=== PATIENT | female | born 1965 | race African-American/Black ===

== ENCOUNTER → 2016-07-15 | Outpatient (CLI) | payer MEDICARE, OTHER | LOC: RAD 08:00 | PROVIDERS: ATTEND Internal Medicine Medical Oncology | DX: C50.912 Malignant neoplasm of unspecified site of left female breast (principal) | CPT/HCPCS: 71260; 74177 ==

== ENCOUNTER 2016-08-19 19:06 | Inpatient (IN) | payer MEDICARE, OTHER ==
[2016-08-19] MEDS ORDERED: IPRATROPIUM/ALBUTEROL 0.5-2.5 MG/3 ML AMPUL NEB ONE ×3 (19:23→20:08)
[2016-08-19] MEDS ORDERED: ALBUTEROL SULFATE 0.083% NEB 2.5 MG/3 ML AMPUL NEB ONE (19:23)
--- NOTE | 2016-08-19 19:24 | ER Document Report ---
ED Medical Screen (RME) - General Stated Complaint: DIFFICULTY BREATHING Mode of Arrival: Wheelchair Information source: Patient Notes: Patient presents with difficulty breathing for the past week, that worsened today. Patient started taking Augmentin 5 days ago for her symptoms. Patient with diffuse bilateral wheezing and tachycardia in triage. Patient does complain of some left-sided chest pain. Patient reports she's been advised not to take aspirin. hx: COPD, asthma, mastectomy, CHF, CVA, DVT I have greeted and performed a rapid initial assessment of this patient. A comprehensive ED assessment and evaluation of the patient, analysis of test results and completion of the medical decision making process will be conducted by additional ED providers. TRAVEL OUTSIDE OF THE [place] IN LAST 30 DAYS: No - Related Data Allergies/Adverse Reactions: prednisone [Prednisone] Adverse Reaction (Intermediate, Verified 04/04/16 18:39) Past Medical History - Past Medical History Cardiac Medical History: Reports: Hx Hypercholesterolemia Denies: Hx Coronary Artery Disease, Hx Heart Attack, Hx Hypertension Pulmonary Medical History: Reports: Hx Asthma, Hx COPD, Hx Pneumonia Denies: Hx Bronchitis, Hx Respiratory Failure, Hx Sleep Apnea, Hx Tuberculosis Neurological Medical History: Reports: Hx Cerebrovascular Accident - WEAKNESS ON LEFT SIDE. Denies: Hx Seizures Renal/ Medical History: Reports: Hx Ovarian Cysts Malignancy Medical History: Reports: Hx Breast Cancer GI Medical History: Reports: Hx Hiatal Hernia Musculoskeltal Medical History: Denies Hx Arthritis, Denies Hx Multiple Sclerosis Psychiatric Medical History: Reports: Hx Depression Denies: Hx Dementia Infectious Medical History: Past Surgical History: Reports: Hx Mastectomy - bilat 2010. Denies: Hx Hysterectomy, Hx Pacemaker - Immunizations Hx Diphtheria, Pertussis, Tetanus Vaccination: No Physical Exam - Vital signs Vitals: Temp Pulse Resp BP Pulse Ox 98.2 F 132 H 21 H 111/79 94 08/19/16 19:17 08/19/16 19:17 08/19/16 19:17 08/19/16 19:17 08/19/16 19:17 - Respiratory Respiratory status: Labored Breath sounds: Nonproductive cough, Wheezing Course - Vital Signs Vital signs: Temp Pulse Resp BP Pulse Ox 98.2 F 132 H 21 H 111/79 94 08/19/16 19:17 08/19/16 19:17 08/19/16 19:17 08/19/16 19:17 08/19/16 19:17
[2016-08-19] MEDS ORDERED: NORMAL SALINE 1000 ML 500 ML IV ONE (20:09)
--- NOTE | 2016-08-19 20:11 | ER Document Report ---
ED Respiratory Problem - General Chief Complaint: Breathing Difficulty Stated Complaint: DIFFICULTY BREATHING Time seen by provider: 20:05 Mode of Arrival: Wheelchair Notes: Patient is a 51-year-old female that comes emergency department for chief complaint of worsening shortness of breath and productive cough. Symptoms started one week ago, patient was placed on Augmentin, patient states she suddenly worsened today with wheezing and increased shortness of breath even if she tries to walk a few steps. Past medical history of COPD, asthma, current smoker, DVT (on xarelto), CVA, CHF. Patient is not on home oxygen. TRAVEL OUTSIDE OF THE [place] IN LAST 30 DAYS: No - Related Data Allergies/Adverse Reactions: prednisone [Prednisone] Adverse Reaction (Intermediate, Verified 04/04/16 18:39) Past Medical History - General Information source: Patient - Social History Smoking Status: Current Every Day Smoker Frequency of alcohol use: None Drug Abuse: None Lives with: Alone Family History: Reviewed & Not Pertinent - Past Medical History Cardiac Medical History: Reports: Hx Hypercholesterolemia Denies: Hx Coronary Artery Disease, Hx Heart Attack, Hx Hypertension Pulmonary Medical History: Reports: Hx Asthma, Hx COPD, Hx Pneumonia Denies: Hx Bronchitis, Hx Respiratory Failure, Hx Sleep Apnea, Hx Tuberculosis Neurological Medical History: Reports: Hx Cerebrovascular Accident - WEAKNESS ON LEFT SIDE. Denies: Hx Seizures Renal/ Medical History: Reports: Hx Ovarian Cysts. Denies: Hx Peritoneal Dialysis Malignancy Medical History: Reports: Hx Breast Cancer GI Medical History: Reports: Hx Hiatal Hernia Musculoskeltal Medical History: Denies Hx Arthritis, Denies Hx Multiple Sclerosis Psychiatric Medical History: Reports: Hx Depression Denies: Hx Dementia Infectious Medical History: Past Surgical History: Reports: Hx Mastectomy - bilat 2010. Denies: Hx Hysterectomy, Hx Pacemaker - Immunizations Hx Diphtheria, Pertussis, Tetanus Vaccination: No Hx Pneumococcal Vaccination: 06/26/11 Review of Systems - Review of Systems Constitutional: See HPI EENT: No symptoms reported Cardiovascular: See HPI Respiratory: See HPI Gastrointestinal: No symptoms reported Genitourinary: No symptoms reported Female Genitourinary: No symptoms reported Musculoskeletal: No symptoms reported Skin: No symptoms reported Hematologic/Lymphatic: No symptoms reported Neurological/Psychological: No symptoms reported Physical Exam - Vital signs Vitals: Temp Pulse Resp BP Pulse Ox 98.2 F 132 H 21 H 111/79 94 08/19/16 19:17 08/19/16 19:17 08/19/16 19:17 08/19/16 19:17 08/19/16 19:17 Interpretation: Normal - General General appearance: Anxious In distress: None - HEENT Head: Normocephalic, Atraumatic Eyes: Normal Extraocular movements intact: Yes Eyelashes: Normal Pupils: PERRL Nasal: Normal Mouth/Lips: Normal Mucous membranes: Normal Pharynx: Normal Neck: Normal - Respiratory Respiratory status: Labored, Tachypnea Chest status: Nontender Breath sounds: Decreased air movement, Nonproductive cough, Wheezing Chest palpation: Normal - Cardiovascular Rhythm: Regular, Tachycardia Heart sounds: Normal auscultation, S1 appreciated, S2 appreciated Murmur: No - Abdominal Inspection: Normal Distension: No distension Bowel sounds: Normal Tenderness: Nontender. No: Tender, Guarding Organomegaly: No organomegaly - Back Back: Normal, Nontender - Extremities General upper extremity: Normal inspection, Nontender, Normal color, Normal ROM , Normal temperature General lower extremity: Normal inspection, Nontender, Normal color, Normal ROM , Normal temperature, Normal weight bearing. 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 08/19/16 Oxygen saturation averaging 97% on 2 L, after DuoNeb's, magnesium, Solu-Medrol, fluids, patient is tachycardic but lung sounds has significantly improved, second magnesium infusing, will reevaluate. Chest x-ray unremarkable, CBC, chemistry, venous blood gas, trach enzymes unremarkable. EKG showing sinus tachycardia. Tachycardia finally reducing, patient is more comfortable but still has some diffuse wheezing noted. Patient states she feels improved, states she is unsure if she wants to be in the hospital, patient did ambulate with pulse ox, she did very poorly and became almost immediately short of breath and desaturated to 85% on room air. Patient has no oxygen at home. Patient immediately placed back on oxygen and monitor, after this her labored breathing subsided. Discussed with Dr. Jaimes per [facility] guidelines. Patient remains somewhat tachycardic but on my last evaluations her heart rate was 105 with 97% oxygen saturation on nasal cannula. Patient states she is taking her xarelto. 08/20/16 01:[address] Smallwood, on-call for patient's primary care provider, patient will be admitted to the hospital. - Vital Signs Vital signs: Temp Pulse Resp BP Pulse Ox 98.2 F 132 H 21 H 132/83 H 90 L 08/19/16 19:17 08/19/16 19:17 08/20/16 00:30 08/20/16 00:30 08/20/16 01:00 - Laboratory Result Diagrams: 08/19/16 20:30 08/19/16 20:30 Laboratory results interpreted by me: 08/19/16 08/19/16 20:30 20:30 Seg Neutrophils % 39.1 L Lymphocytes % 48.5 H Chloride 108 H Carbon Dioxide 20 L Creatine Kinase 179 H Discharge - Discharge Clinical Impression: COPD exacerbation, Hypoxia, Cough, Wheezing, Tachycardia Disposition: ADMITTED INPATIENT Admitting Provider: Cl Steen Unit Admitted: Telemetry
[2016-08-19] MEDS ORDERED: METHYLPREDNISOLONE INJ 125 MG/2 ML SDV IV ONE (20:13)
[2016-08-19] MEDS: MAGNESIUM SULFATE/D5W 100 ML IV SCH ×2 (20:31→21:48)
[2016-08-19 20:52] LABS: ABSOLUTE BASOPHILS # (AUTO) 0.1 10^3/uL (0.0-0.2); ABSOLUTE EOSINOPHILS # (AUTO) 0.1 10^3/uL (0.0-0.6); ABSOLUTE LYMPHOCYTES (AUTO) 2.8 10^3/uL (0.5-4.7); ABSOLUTE MONOCYTES (AUTO) 0.6 10^3/uL (0.1-1.4); ABSOLUTE NEUT (AUTO) 2.2 10^3/uL (1.7-8.2); EOSINOPHILS % (AUTO) 1.7 % (0-6); HEMATOCRIT 41.4 % (36.0-47.0); HEMOGLOBIN 13.6 g/dL (12.0-15.5); HGB HCT DIFFERENCE -0.6; LYMPHOCYTES % (AUTO) 48.5 % (13-45); MEAN CORPUSCULAR HEMOGLOBIN 31.8 pg (27.0-33.4); MEAN CORPUSCULAR HGB CONC 32.8 g/dL (32.0-36.0); MEAN CORPUSCULAR VOLUME 97 fl (80-97); MONOCYTES % (AUTO) 9.7 % (3-13); RED BLOOD COUNT 4.27 10^6/uL (3.72-5.28); RED CELL DISTRIBUTION WIDTH 13.1 % (11.5-14.0); SEGMENTED NEUTROPHILS % (AUTO) 39.1 % (42-78); WHITE BLOOD COUNT 5.7 10^3/uL (4.0-10.5)
[2016-08-19 20:54] LABS: VENOUS BLOOD BASE EXCESS -2.7 mmol/L; VENOUS BLOOD HCO3 21.4 mmol/L (20-32); VENOUS BLOOD PCO2 35.3 mmHg (35-63); VENOUS BLOOD PH 7.4 (7.30-7.42)
[2016-08-19 21:07] LABS: ALANINE AMINOTRANSFERASE 30 U/L (9-52); ALBUMIN 4.7 g/dL (3.5-5.0); ALKALINE PHOSPHATASE 45 U/L (38-126); ANION GAP 16 (5-19); ASPARTATE AMINO TRANSFERASE 23 U/L (14-36); BILIRUBIN,TOTAL 0.6 mg/dL (0.2-1.3); BLOOD UREA NITROGEN 11 mg/dL (7-20); CALCIUM 9.8 mg/dL (8.4-10.2); CARBON DIOXIDE 20 mmol/L (22-30); CHLORIDE 108 mmol/L (98-107); CREATINE KINASE 179 U/L (30-135); CREATININE RESULT 0.95 mg/dL (0.52-1.25); GLUCOSE 90 mg/dL (75-110); POTASSIUM 3.6 mmol/L (3.6-5.0); SODIUM 143.5 mmol/L (137-145); TOTAL PROTEIN 7.8 g/dL (6.3-8.2)
[2016-08-19 21:18] LABS: CREATINE KINASE MB 1.38 ng/mL (<4.55)
[2016-08-19] MEDS ORDERED: HYDROCODONE/ACETAMINOPHEN 5-325 MG TABLET PO ONE (21:18)
[2016-08-19 21:19] LABS: TROPONIN I < 0.012 ng/mL
--- NOTE | 2016-08-19 23:36 | EKG REPORT ---
SEVERITY:- ABNORMAL ECG - SINUS TACHYCARDIA PROBABLE LEFT VENTRICULAR HYPERTROPHY ST ELEV, PROBABLE NORMAL EARLY REPOL PATTERN : Confirmed by: Roseann Nayak MD 19-Aug-2016 23:35:46
[2016-08-20] MEDS: IPRATROPIUM/ALBUTEROL 0.5-2.5 MG/3 ML AMPUL NEB SCH ×4 (08:16→19:59)
[2016-08-20] MEDS ORDERED: (PENDING PHARMACY ID) (Rivaroxaban [Xarelto] 1 TAB) PO SCH (10:00)
[2016-08-20] MEDS ORDERED: TIOTROPIUM BROMIDE DPI 5 CAP/KIT (18 MCG/CAP) IH ONE ×2 (11:00→13:00)
[2016-08-20] MEDS ORDERED: FLUTICASONE NASAL SPRAY 50 MCG/SPRY 120 SPRAY/16 GM NASL ONE (11:00)
[2016-08-20] MEDS ORDERED: ANASTROZOLE 1 MG TABLET PO ONE (11:00)
--- NOTE | 2016-08-20 11:11 | PDOC H&P ---
History of Present Illness Admission Date/PCP: 08/20/16 04:27 LUKASZ ORNELAS Patient complains of: Shortness of the breath History of Present Illness: ARIELLA JUAREZ is a 51 year old female This is a 51-year-old female with a significant history of COPD and a chronic smoker with a history of breast cancer and a history of the DVT came to the emergency department with accompanied shortness of the breath cough and congestions since last 1 week. Patient was seen by the PCP and started on Augmentin. Patient's grandson was also sick the some flulike symptoms. In the ER patient was for COPD with acute exacerbation and patient was put on a DuoNeb nebulizer and when I saw the patient on the floor patient is doing better but still have a wheezings and coughing spell. Patient's denied any chest pain denied any nausea no vomiting. She is currently on xerlato for DVT. Patient also see her Dr. Baker for breast cancer and currently all stable. Past Medical History Cardiac Medical History: Reports: Hyperlipidema Denies: Coronary Artery Disease, Myocardial Infarction, Hypertension Pulmonary Medical History: Reports: Asthma, Chronic Obstructive Pulmonary Disease (COPD), Pneumonia Denies: Bronchitis, Respiratory Failure, Sleep Apnea, Tuberculosis Neurological Medical History: Reports: Ischemic CVA Denies: Seizures Malignancy Medical History: Reports: Breast Cancer GI Medical History: Reports: Hiatal Hernia Musculoskeltal Medical History: Denies: Arthritis Psychiatric Medical History: Reports: Depression Denies: Dementia Hematology: Reports: Other Denies: Anemia Hematology History Note: History of the DVT Past Surgical History Past Surgical History: Reports: Mastectomy - bilat 2010 Denies: Hysterectomy, Pacemaker Social History Lives with: Alone Smoking Status: Current Every Day Smoker Frequency of Alcohol Use: None Hx Recreational Drug Use: No Hx Prescription Drug Abuse: No Family History Family History: Reviewed & Not Pertinent Parental Family History Reviewed: Yes Children Family History Reviewed: Yes Sibling(s) Family History Reviewed.: Yes Medication/Allergy Home Medications: Tiotropium [place] [Spiriva Handihaler 18 mcg/dose (30 Dose)] 1 cap IH DAILY Allergies/Adverse Reactions: prednisone [Prednisone] Adverse Reaction (Intermediate, Verified 04/04/16 18:39) Review of Systems Constitutional: PRESENT: chills Nose, Mouth, and Throat: ABSENT: as per HPI, headache(s), mouth pain, sore throat, vertigo, other Cardiovascular: PRESENT: dyspnea on exertion Respiratory: PRESENT: cough Gastrointestinal: ABSENT: as per HPI, abdominal pain, bloating, coffee ground emesis, constipation, diarrhea, dysphagia, heartburn, hematemesis, hematochezia , melena, nausea, vomiting, other Musculoskeletal: ABSENT: as per HPI, back pain, deformity, joint swelling, muscle weakness, other Integumentary: ABSENT: as per HPI, diaphoresis, erythema, lesions, pruritus, rash, wounds, other Neurological: ABSENT: as per HPI, abnormal gait, abnormal movements, abnormal speech, confusion, convulsions, dizziness, focal weakness, frequent falls, lack of coordination, memory loss, numbness, paresthesias, restless legs, syncope, tingling, tremor(s), vertigo, weakness, other Psychiatric: ABSENT: as per HPI, anxiety, depression, hallucinations, homidical ideation, suicidal ideation, other Endocrine: ABSENT: as per HPI, cold intolerance, flushing, heat intolerance, menstrual abnormalities, polydipsia, polyphagia, polyuria, other Physical Exam Vital Signs: Temp Pulse Resp BP Pulse Ox 98.3 F 86 14 118/68 96 08/20/16 07:37 08/20/16 07:37 08/20/16 07:37 08/20/16 07:37 08/20/16 07:37 Intake & Output 08/19/16 08/20/16 08/21/16 06:59 06:59 06:59 Intake Total 153 Output Total 0 Balance 153 General appearance: PRESENT: no acute distress, well-developed, well-nourished Head exam: PRESENT: atraumatic, normocephalic Eye exam: PRESENT: conjunctiva pink, EOMI, PERRLA. ABSENT: scleral icterus Ear exam: PRESENT: normal external ear exam Mouth exam: PRESENT: moist, tongue midline Neck exam: PRESENT: full ROM. ABSENT: carotid bruit, JVD, lymphadenopathy, thyromegaly Respiratory exam: PRESENT: decreased breath sounds, wheezes Cardiovascular exam: PRESENT: RRR. ABSENT: diastolic murmur, rubs, systolic murmur Pulses: PRESENT: normal dorsalis pedis pul, +2 pedal pulses bilateral Vascular exam: PRESENT: normal capillary refill GI/Abdominal exam: PRESENT: normal bowel sounds, soft. ABSENT: distended, guarding, mass, organolmegaly, rebound, tenderness Rectal exam: PRESENT: deferred Musculoskeletal exam: PRESENT: ambulatory Neurological exam: PRESENT: alert, awake, oriented to person, oriented to place , oriented to time, oriented to situation, CN II-XII grossly intact. ABSENT: motor sensory deficit Psychiatric exam: PRESENT: appropriate affect, normal mood. ABSENT: homicidal ideation, suicidal ideation Skin exam: PRESENT: dry, intact, warm. ABSENT: cyanosis, rash Results Impressions: Chest X-Ray 08/19/16 20:09 IMPRESSION: COPD. NO ACUTE RADIOGRAPHIC FINDING IN THE CHEST. Assessment & Plan - Diagnosis (1) COPD exacerbation Is this a current diagnosis for this admission?: YesPlan: Start the patient nebulizer treatment and start the patient on IV Solu-Medrol. Patient was given Solu-Medrol before and also given Medrol Dosepak before to so there is no any sign off for any side effect with the steroid (2) Cough Is this a current diagnosis for this admission?: YesPlan: From the COPD endobronchitis was start the patient and the Levaquin (3) Breast cancer Is this a current diagnosis for this admission?: YesPlan: Currently stable (4) GERD (gastroesophageal reflux disease) Qualifiers: Esophagitis presence: without esophagitis Qualified Code(s): K21.9 - Gastro-esophageal reflux disease without esophagitis Is this a current diagnosis for this admission?: YesPlan: Continues the current medication - Time Time Spent: 30 to 50 Minutes Medications reviewed and adjusted accordingly: Yes Anticipated discharge: Home Within: Other - Inpatient Certification Medical Necessity: Failure to Improve With Outpatient Therapy, Need for IV Antibiotics Post Hospital Care: D/C [employer] Documentation - Plan Summary Plan Summary: Start the patient on IV steroid and antibiotic and a nebulizer treatment and discuss with the patient about smoking cessation Continues the current other medication at home
[2016-08-20] MEDS: LEVOFLOXACIN 500 MG/D5W RTU 100 ML IV SCH (11:44)
[2016-08-20] MEDS: METHYLPREDNISOLONE INJ 125 MG/2 ML SDV IV SCH ×2 (14:45→21:23)
[2016-08-20] MEDS: ACETAMINOPHEN 325 MG TABLET PO PRN (21:21)
[2016-08-20] MEDS: FLUTICASONE NASAL SPRAY 50 MCG/SPRY 120 SPRAY/16 GM NASL SCH (21:23)
[2016-08-21] MEDS: IPRATROPIUM/ALBUTEROL 0.5-2.5 MG/3 ML AMPUL NEB SCH ×6 (00:12→19:38)
[2016-08-21] MEDS: METHYLPREDNISOLONE INJ 125 MG/2 ML SDV IV SCH ×3 (05:55→22:26)
[2016-08-21 06:15] LABS: HEMATOCRIT 33.9 % (36.0-47.0); MEAN CORPUSCULAR HGB CONC 33.4 g/dL (32.0-36.0); MEAN CORPUSCULAR VOLUME 96 fl (80-97); RED BLOOD COUNT 3.54 10^6/uL (3.72-5.28); RED CELL DISTRIBUTION WIDTH 13.2 % (11.5-14.0)
[2016-08-21 06:27] LABS: HEMOGLOBIN 11.3 g/dL (12.0-15.5)
[2016-08-21 06:34] LABS: ANION GAP 13 (5-19); BLOOD UREA NITROGEN 13 mg/dL (7-20); CARBON DIOXIDE 20 mmol/L (22-30); CHLORIDE 107 mmol/L (98-107); CREATININE RESULT 0.87 mg/dL (0.52-1.25); GLUCOSE 134 mg/dL (75-110); SODIUM 140.3 mmol/L (137-145)
[2016-08-21] MEDS ORDERED: TIOTROPIUM BROMIDE DPI 5 CAP/KIT (18 MCG/CAP) IH SCH (10:00)
[2016-08-21] MEDS: FLUTICASONE NASAL SPRAY 50 MCG/SPRY 120 SPRAY/16 GM NASL SCH ×2 (10:07→22:26)
[2016-08-21] MEDS: ANASTROZOLE 1 MG TABLET PO SCH (10:08)
[2016-08-21] MEDS: LEVOFLOXACIN 500 MG/D5W RTU 100 ML IV SCH (10:09)
[2016-08-21] MEDS: TIOTROPIUM BROMIDE DPI 5 CAP/KIT (18 MCG/CAP) IH SCH (10:10)
--- NOTE | 2016-08-21 11:30 | PDOC PROGRESS REPORT ---
Subjective Progress Note for:: 08/21/16 Subjective:: Patient is doing fair still quite a bit wheezing but better than yesterday. No chest pain no shortness of the breath Physical Exam Vital Signs: Temp Pulse Resp BP Pulse Ox 98.9 F 94 18 107/58 L 95 08/21/16 04:42 08/21/16 07:53 08/21/16 07:53 08/21/16 04:42 08/21/16 07:53 Intake & Output 08/20/16 08/21/16 08/22/16 06:59 06:59 06:59 Intake Total 153 1429 Output Total 0 Balance 153 1429 General appearance: PRESENT: no acute distress, well-developed, well-nourished Head exam: PRESENT: atraumatic, normocephalic Eye exam: PRESENT: conjunctiva pink, EOMI, PERRLA. ABSENT: scleral icterus Ear exam: PRESENT: normal external ear exam Mouth exam: PRESENT: moist, tongue midline Neck exam: PRESENT: full ROM. ABSENT: carotid bruit, JVD, lymphadenopathy, thyromegaly Respiratory exam: PRESENT: wheezes Cardiovascular exam: PRESENT: RRR. ABSENT: diastolic murmur, rubs, systolic murmur Pulses: PRESENT: normal dorsalis pedis pul, +2 pedal pulses bilateral Vascular exam: PRESENT: normal capillary refill GI/Abdominal exam: PRESENT: normal bowel sounds, soft. ABSENT: distended, guarding, mass, organolmegaly, rebound, tenderness Rectal exam: PRESENT: deferred Musculoskeletal exam: PRESENT: ambulatory Neurological exam: PRESENT: alert, awake, oriented to person, oriented to place , oriented to time, oriented to situation, CN II-XII grossly intact. ABSENT: motor sensory deficit Psychiatric exam: PRESENT: appropriate affect, normal mood. ABSENT: homicidal ideation, suicidal ideation Skin exam: PRESENT: dry, intact, warm. ABSENT: cyanosis, rash Results Laboratory Results: 08/21/16 05:45 08/21/16 05:45 08/21/16 08/21/16 05:45 05:45 WBC 12.0 H D RBC 3.54 L Hgb 11.3 L D Hct 33.9 L MCV 96 MCH 32.0 MCHC 33.4 RDW 13.2 Plt Count 258 Sodium 140.3 Potassium 4.0 Chloride 107 Carbon Dioxide 20 L Anion Gap 13 BUN 13 Creatinine 0.87 Est GFR ( Amer) > 60 Est GFR (Non-Af Amer) > 60 Glucose 134 H Calcium 10.0 Impressions: Chest X-Ray 08/19/16 20:09 IMPRESSION: COPD. NO ACUTE RADIOGRAPHIC FINDING IN THE CHEST. Assessment & Plan - Diagnosis (1) COPD exacerbation Is this a current diagnosis for this admission?: YesPlan: Start the patient nebulizer treatment and start the patient on IV Solu-Medrol. Patient was given Solu-Medrol before and also given Medrol Dosepak before to so there is no any sign off for any side effect with the steroid (2) Cough Is this a current diagnosis for this admission?: YesPlan: From the COPD endobronchitis was start the patient and the Levaquin (3) Breast cancer Is this a current diagnosis for this admission?: YesPlan: Currently stable (4) GERD (gastroesophageal reflux disease) Qualifiers: Esophagitis presence: without esophagitis Qualified Code(s): K21.9 - Gastro-esophageal reflux disease without esophagitis Is this a current diagnosis for this admission?: YesPlan: Continues the current medication - Time Time Spent with patient: 15-24 minutes Medications reviewed and adjusted accordingly: Yes Anticipated discharge: Home Within: Other - Inpatient Certification Medical Necessity: Need for IV Antibiotics Post Hospital Care: D/C Tele[employer]st Documentation - Plan Summary Plan Summary: Continues IV Solu-Medrol and IV antibiotic and nebulizer treatment
[2016-08-21] MEDS: RIVAROXABAN 10 MG TABLET PO SCH (17:17)
[2016-08-21] MEDS: ACETAMINOPHEN 325 MG TABLET PO PRN (17:50)
[2016-08-21] MEDS ORDERED: LANSOPRAZOLE 30 MG TAB.RAP.DR PO ONE (19:45)
[2016-08-22] MEDS: IPRATROPIUM/ALBUTEROL 0.5-2.5 MG/3 ML AMPUL NEB SCH ×7 (00:01→23:50)
[2016-08-22] MEDS: LANSOPRAZOLE 30 MG TAB.RAP.DR PO SCH ×2 (06:37→18:17)
[2016-08-22] MEDS: METHYLPREDNISOLONE INJ 125 MG/2 ML SDV IV SCH ×3 (06:37→21:44)
[2016-08-22 06:50] LABS: HEMATOCRIT 35.5 % (36.0-47.0); HEMOGLOBIN 11.5 g/dL (12.0-15.5); MEAN CORPUSCULAR HEMOGLOBIN 31.2 pg (27.0-33.4); MEAN CORPUSCULAR HGB CONC 32.3 g/dL (32.0-36.0); MEAN CORPUSCULAR VOLUME 97 fl (80-97); RED BLOOD COUNT 3.67 10^6/uL (3.72-5.28); RED CELL DISTRIBUTION WIDTH 13.4 % (11.5-14.0); WHITE BLOOD COUNT 12.2 10^3/uL (4.0-10.5)
[2016-08-22 07:12] LABS: ANION GAP 14 (5-19); BLOOD UREA NITROGEN 15 mg/dL (7-20); CALCIUM 9.8 mg/dL (8.4-10.2); CARBON DIOXIDE 22 mmol/L (22-30); CHLORIDE 104 mmol/L (98-107); CREATININE RESULT 0.87 mg/dL (0.52-1.25); GLUCOSE 145 mg/dL (75-110); POTASSIUM 4.6 mmol/L (3.6-5.0); SODIUM 139.8 mmol/L (137-145)
[2016-08-22] MEDS: ANASTROZOLE 1 MG TABLET PO SCH (09:36)
[2016-08-22] MEDS: TIOTROPIUM BROMIDE DPI 5 CAP/KIT (18 MCG/CAP) IH SCH (09:37)
[2016-08-22] MEDS: FLUTICASONE NASAL SPRAY 50 MCG/SPRY 120 SPRAY/16 GM NASL SCH ×2 (09:38→21:44)
[2016-08-22] MEDS: LEVOFLOXACIN 500 MG/D5W RTU 100 ML IV SCH (09:38)
[2016-08-22] MEDS: RIVAROXABAN 10 MG TABLET PO SCH (18:16)
[2016-08-23] MEDS: ACETAMINOPHEN 325 MG TABLET PO PRN ×2 (00:59→23:07)
[2016-08-23] MEDS: IPRATROPIUM/ALBUTEROL 0.5-2.5 MG/3 ML AMPUL NEB SCH (03:57)
[2016-08-23] MEDS: METHYLPREDNISOLONE INJ 125 MG/2 ML SDV IV SCH ×3 (06:03→23:05)
[2016-08-23] MEDS: LANSOPRAZOLE 30 MG TAB.RAP.DR PO SCH ×2 (06:03→18:09)
[2016-08-23 07:20] LABS: HEMATOCRIT 34.6 % (36.0-47.0); HEMOGLOBIN 11.3 g/dL (12.0-15.5); HGB HCT DIFFERENCE -0.7; MEAN CORPUSCULAR HEMOGLOBIN 31.6 pg (27.0-33.4); MEAN CORPUSCULAR HGB CONC 32.7 g/dL (32.0-36.0); MEAN CORPUSCULAR VOLUME 97 fl (80-97); RED BLOOD COUNT 3.58 10^6/uL (3.72-5.28); RED CELL DISTRIBUTION WIDTH 13.2 % (11.5-14.0); WHITE BLOOD COUNT 12.7 10^3/uL (4.0-10.5)
[2016-08-23] MEDS ORDERED: LEVALBUTEROL HCL NEB 1.25 MG/3 ML AMPUL NEB PRN (07:32)
--- NOTE | 2016-08-23 07:35 | PDOC PROGRESS REPORT ---
Subjective Progress Note for:: 08/23/16 Subjective:: Patient reported some improvement in her breathing but persistent episodes of coughing spells. No chest pain. No fever or shills. No nausea or vomiting. There is reported [id number]. No abdominal pain. Thee are episodes of sinus tachycardia on cardiac monitoring. Physical Exam Vital Signs: Temp Pulse Resp BP Pulse Ox 98.3 F 107 H 19 115/58 L 96 08/23/16 04:53 08/23/16 04:53 08/23/16 04:53 08/23/16 04:53 08/23/16 04:53 Intake & Output 08/22/16 08/23/16 08/24/16 06:59 06:59 06:59 Intake Total 1450 1725 Balance 1450 1725 General appearance: PRESENT: cooperative, mild distress - on supplemental oxygen via nasal canula at 2L/min Head exam: PRESENT: atraumatic, normocephalic Eye exam: PRESENT: conjunctiva pink, EOMI, PERRLA. ABSENT: scleral icterus Ear exam: PRESENT: normal external ear exam Mouth exam: PRESENT: moist, tongue midline Teeth exam: PRESENT: edentulous Throat exam: ABSENT: post pharyngeal erythema, tonsillar erythema, tonsillar exudate, tonsillogmegaly, other Neck exam: PRESENT: full ROM. ABSENT: carotid bruit, JVD, lymphadenopathy, thyromegaly Respiratory exam: PRESENT: rhonchi, wheezes. ABSENT: accessory muscle use, chest wall tenderness, clear to auscultation darinel, crackles, decreased breath sounds, prolonged expiratory phas, rales, retraction, stridor, symmetrical, tachypnea, unlabored, other Cardiovascular exam: PRESENT: tachycardia. ABSENT: bradycardia, clicks, diastolic murmur, gallop, irregular rhythm, RRR, rubs, +S1, +S2, systolic murmur , other GI/Abdominal exam: PRESENT: normal bowel sounds, soft. ABSENT: distended, guarding, mass, organolmegaly, rebound, tenderness Extremities exam: PRESENT: full ROM Musculoskeletal exam: PRESENT: ambulatory, deformity - related to joint involvement in arthritis Neurological exam: PRESENT: alert, awake, oriented to person, oriented to place , oriented to time, oriented to situation, CN II-XII grossly intact. ABSENT: motor sensory deficit Results Laboratory Results: 08/23/16 06:29 08/23/16 06:29 WBC 12.7 H RBC 3.58 L Hgb 11.3 L Hct 34.6 L MCV 97 MCH 31.6 MCHC 32.7 RDW 13.2 Plt Count 336 Impressions: Chest X-Ray 08/19/16 20:09 IMPRESSION: COPD. NO ACUTE RADIOGRAPHIC FINDING IN THE CHEST. Assessment & Plan - Diagnosis (1) Status post bilateral mastectomy Is this a current diagnosis for this admission?: YesPlan: see attending physician order (2) Constipation Qualifiers: Constipation type: unspecified constipation type Qualified Code(s): K59.00 - Constipation, unspecified Is this a current diagnosis for this admission?: YesPlan: see attending physician order (3) COPD exacerbation Is this a current diagnosis for this admission?: YesPlan: see attending physician order (4) GERD (gastroesophageal reflux disease) Qualifiers: Esophagitis presence: without esophagitis Qualified Code(s): K21.9 - Gastro-esophageal reflux disease without esophagitis Is this a current diagnosis for this admission?: YesPlan: see attending physician order (5) HLD (hyperlipidemia) Qualifiers: Hyperlipidemia type: pure hypercholesterolemia Qualified Code(s): E78.00 - Pure hypercholesterolemia, unspecified; E78.0 - Pure hypercholesterolemia Is this a current diagnosis for this admission?: YesPlan: see attending physician order - Time Time Spent with patient: 25-34 minutes Medications reviewed and adjusted accordingly: Yes - Inpatient Certification Medical Necessity: Need Close Monitoring Due to Risk of Patient Decompensation, Need For IV Fluids, Need for IV Antibiotics, Risk of Complication if Not Cared For in Hospital Post Hospital Care: D/C Recovery Rn Documentation - Plan Summary Plan Summary: D/C Duoneb due to associated tachycardia. Start on Xopenex 1.25mg via nebulizer therapy [id number] prn for wheezing. Start on Benzonatate 200mg p.o tid to promote expectoration. Start on Colace 200mg p.o daily. Maintain on Miralax 17 gm p.o daily. Continue on IV Levofloxacin coverage. Patient was transferred to my service today.
[2016-08-23 07:40] LABS: ANION GAP 10 (5-19); BLOOD UREA NITROGEN 17 mg/dL (7-20); CALCIUM 9.4 mg/dL (8.4-10.2); CARBON DIOXIDE 24 mmol/L (22-30); CHLORIDE 103 mmol/L (98-107); CREATININE RESULT 0.88 mg/dL (0.52-1.25); GLUCOSE 105 mg/dL (75-110); POTASSIUM 4.4 mmol/L (3.6-5.0); SODIUM 137.1 mmol/L (137-145)
[2016-08-23] MEDS ORDERED: (PENDING PHARMACY ID) (Calcium Carbonate/Vitamin D3 [Calcium 500 + Vit D Caplet] 1 TAB) PO SCH (10:00)
[2016-08-23] MEDS ORDERED: LEVOFLOXACIN 500 MG TABLET PO ONE (10:45)
[2016-08-23] MEDS: TIOTROPIUM BROMIDE DPI 5 CAP/KIT (18 MCG/CAP) IH SCH (11:11)
[2016-08-23] MEDS: FLUTICASONE NASAL SPRAY 50 MCG/SPRY 120 SPRAY/16 GM NASL SCH ×2 (11:13→23:05)
[2016-08-23] MEDS: CALCIUM CARBONATE 250 MG/VITAMIN D3 125 UNIT TABLET PO SCH ×2 (11:14→23:04)
[2016-08-23] MEDS: POLYETHYLENE GLYCOL 3350 POWDER 17 GM/1 PACKET PO SCH (11:14)
[2016-08-23] MEDS: DOCUSATE SODIUM 100 MG CAPSULE PO SCH (11:15)
[2016-08-23] MEDS: ANASTROZOLE 1 MG TABLET PO SCH (11:16)
[2016-08-23] MEDS: BENZONATATE 100 MG CAPSULE PO SCH ×2 (14:18→23:03)
[2016-08-23] MEDS: RIVAROXABAN 10 MG TABLET PO SCH (18:09)
[2016-08-24] MEDS: LANSOPRAZOLE 30 MG TAB.RAP.DR PO SCH ×2 (06:20→16:08)
[2016-08-24] MEDS: METHYLPREDNISOLONE INJ 125 MG/2 ML SDV IV SCH ×3 (06:20→21:47)
[2016-08-24] MEDS: BENZONATATE 100 MG CAPSULE PO SCH ×3 (06:20→21:44)
[2016-08-24] MEDS: LEVOFLOXACIN 500 MG TABLET PO SCH (09:30)
[2016-08-24] MEDS: ANASTROZOLE 1 MG TABLET PO SCH (09:30)
[2016-08-24] MEDS: FLUTICASONE NASAL SPRAY 50 MCG/SPRY 120 SPRAY/16 GM NASL SCH ×2 (09:30→21:45)
[2016-08-24] MEDS: CALCIUM CARBONATE 250 MG/VITAMIN D3 125 UNIT TABLET PO SCH ×2 (09:30→21:44)
[2016-08-24] MEDS: TIOTROPIUM BROMIDE DPI 5 CAP/KIT (18 MCG/CAP) IH SCH (09:31)
[2016-08-24] MEDS: POLYETHYLENE GLYCOL 3350 POWDER 17 GM/1 PACKET PO SCH (09:33)
[2016-08-24] MEDS: DOCUSATE SODIUM 100 MG CAPSULE PO SCH (09:33)
--- NOTE | 2016-08-24 17:52 | PDOC PROGRESS REPORT ---
Subjective Progress Note for:: 08/24/16 Subjective:: Patient continue to experience exertional difficulty with breathing. There is persistent wheezing and minimaly productive coughing. No chest pain. No fever or shills. No nausea or vomiting. There is reported [id number]. No abdominal pain. Thee are episodes of sinus tachycardia on cardiac monitoring. Physical Exam Vital Signs: Temp Pulse Resp BP Pulse Ox 98.7 F 87 20 120/72 94 08/24/16 15:47 08/24/16 15:47 08/24/16 15:47 08/24/16 15:47 08/24/16 15:47 Intake & Output 08/23/16 08/24/16 08/25/16 06:59 06:59 06:59 Intake Total 1725 1570 684 Output Total 120 Balance 1725 1450 684 Weight 62.7 kg Physical Exam: General appearance: PRESENT: cooperative, mild distress - on supplemental oxygen via nasal canula at 2L/min Head exam: PRESENT: atraumatic, normocephalic Eye exam: PRESENT: conjunctiva pink, EOMI, PERRLA. ABSENT: scleral icterus Ear exam: PRESENT: normal external ear exam Mouth exam: PRESENT: moist, tongue midline Teeth exam: PRESENT: edentulous Throat exam: ABSENT: post pharyngeal erythema, tonsillar erythema, tonsillar exudate, tonsillogmegaly, other Neck exam: PRESENT: full ROM. ABSENT: carotid bruit, JVD, lymphadenopathy, thyromegaly Respiratory exam: PRESENT: rhonchi, wheezes. ABSENT: accessory muscle use, chest wall tenderness, clear to auscultation darinel, crackles, decreased breath sounds, prolonged expiratory phas, rales, retraction, stridor, symmetrical, tachypnea, unlabored, other Cardiovascular exam: PRESENT: tachycardia. ABSENT: bradycardia, clicks, diastolic murmur, gallop, irregular rhythm, RRR, rubs, +S1, +S2, systolic murmur , other GI/Abdominal exam: PRESENT: normal bowel sounds, soft. ABSENT: distended, guarding, mass, organolmegaly, rebound, tenderness Extremities exam: PRESENT: full ROM Musculoskeletal exam: PRESENT: ambulatory, deformity - related to joint involvement in arthritis Neurological exam: PRESENT: alert, awake, oriented to person, oriented to place , oriented to time, oriented to situation, CN II-XII grossly intact. ABSENT: motor sensory deficit Results Laboratory Results: 08/23/16 06:29 08/23/16 06:29 Impressions: Chest X-Ray 08/19/16 20:09 IMPRESSION: COPD. NO ACUTE RADIOGRAPHIC FINDING IN THE CHEST. Assessment & Plan - Diagnosis (1) Status post bilateral mastectomy Is this a current diagnosis for this admission?: YesPlan: see attending physician order (2) Constipation Qualifiers: Constipation type: unspecified constipation type Qualified Code(s): K59.00 - Constipation, unspecified Is this a current diagnosis for this admission?: YesPlan: see attending physician order (3) COPD exacerbation Is this a current diagnosis for this admission?: YesPlan: see attending physician order (4) GERD (gastroesophageal reflux disease) Qualifiers: Esophagitis presence: without esophagitis Qualified Code(s): K21.9 - Gastro-esophageal reflux disease without esophagitis Is this a current diagnosis for this admission?: YesPlan: see attending physician order (5) HLD (hyperlipidemia) Qualifiers: Hyperlipidemia type: pure hypercholesterolemia Qualified Code(s): E78.00 - Pure hypercholesterolemia, unspecified; E78.0 - Pure hypercholesterolemia Is this a current diagnosis for this admission?: YesPlan: see attending physician order - Time Time Spent with patient: 25-34 minutes Medications reviewed and adjusted accordingly: Yes Anticipated discharge: Home with Homehealth Within: within 72 hours - Inpatient Certification Medical Necessity: Need Close Monitoring Due to Risk of Patient Decompensation, Need For IV Fluids, Need For Continuous Telemetry Monitoring, Need for IV Antibiotics, Risk of Complication if Not Cared For in Hospital Post Hospital Care: D/C Orthotics Assistant 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
[2016-08-24] MEDS: RIVAROXABAN 10 MG TABLET PO SCH (19:12)
[2016-08-24] MEDS: ACETAMINOPHEN 325 MG TABLET PO PRN (21:43)
[2016-08-25] MEDS: BENZONATATE 100 MG CAPSULE PO SCH ×3 (06:00→21:26)
[2016-08-25] MEDS: LANSOPRAZOLE 30 MG TAB.RAP.DR PO SCH ×2 (06:00→18:18)
[2016-08-25] MEDS: METHYLPREDNISOLONE INJ 125 MG/2 ML SDV IV SCH ×3 (06:01→21:26)
[2016-08-25] MEDS: LEVOFLOXACIN 500 MG TABLET PO SCH (09:21)
[2016-08-25] MEDS: CALCIUM CARBONATE 250 MG/VITAMIN D3 125 UNIT TABLET PO SCH ×2 (09:22→21:27)
[2016-08-25] MEDS: ANASTROZOLE 1 MG TABLET PO SCH (09:22)
[2016-08-25] MEDS: TIOTROPIUM BROMIDE DPI 5 CAP/KIT (18 MCG/CAP) IH SCH (09:24)
[2016-08-25] MEDS: DOCUSATE SODIUM 100 MG CAPSULE PO SCH (09:25)
[2016-08-25] MEDS: FLUTICASONE NASAL SPRAY 50 MCG/SPRY 120 SPRAY/16 GM NASL SCH ×2 (09:25→21:28)
[2016-08-25] MEDS: POLYETHYLENE GLYCOL 3350 POWDER 17 GM/1 PACKET PO SCH (09:25)
[2016-08-25] MEDS: RIVAROXABAN 10 MG TABLET PO SCH (18:18)
--- NOTE | 2016-08-25 20:24 | PDOC PROGRESS REPORT ---
Subjective Progress Note for:: 08/25/16 Subjective:: Patient was seen by the bedside she was admitted because of acute COPD exacerbation, she has prednisone allergy on she is on intravenous Solu-Medrol Physical Exam Vital Signs: Temp Pulse Resp BP Pulse Ox 99.0 F 103 H 20 110/64 100 08/25/16 16:09 08/25/16 16:09 08/25/16 16:09 08/25/16 16:09 08/25/16 16:09 Intake & Output 08/24/16 08/25/16 08/26/16 06:59 06:59 06:59 Intake Total 1570 1459 1300 Output Total 120 100 Balance 1450 1359 1300 Weight 62.7 kg 62.7 kg General appearance: PRESENT: mild distress Eye exam: PRESENT: PERRLA Respiratory exam: PRESENT: wheezes Cardiovascular exam: PRESENT: +S1, +S2 GI/Abdominal exam: PRESENT: soft Neurological exam: PRESENT: alert, CN II-XII grossly intact Results Laboratory Results: 08/23/16 06:29 08/23/16 06:29 Impressions: Chest X-Ray 08/19/16 20:09 IMPRESSION: COPD. NO ACUTE RADIOGRAPHIC FINDING IN THE CHEST. Assessment & Plan - Diagnosis (1) COPD exacerbation Is this a current diagnosis for this admission?: YesPlan: Continue IV Solu-Medrol increase the frequency of the nebulizer to every 4 hours (2) Constipation Qualifiers: Constipation type: unspecified constipation type Qualified Code(s): K59.00 - Constipation, unspecified Is this a current diagnosis for this admission?: Yes (3) Cough Is this a current diagnosis for this admission?: Yes (5) Status post bilateral mastectomy Is this a current diagnosis for this admission?: Yes
[2016-08-26] MEDS: BENZONATATE 100 MG CAPSULE PO SCH ×3 (05:28→21:26)
[2016-08-26] MEDS: LANSOPRAZOLE 30 MG TAB.RAP.DR PO SCH ×2 (05:29→17:37)
[2016-08-26] MEDS: METHYLPREDNISOLONE INJ 125 MG/2 ML SDV IV SCH ×3 (05:29→21:26)
[2016-08-26] MEDS: IPRATROPIUM/ALBUTEROL 0.5-2.5 MG/3 ML AMPUL NEB SCH ×4 (07:51→19:31)
[2016-08-26] MEDS: LEVOFLOXACIN 500 MG TABLET PO SCH (09:38)
[2016-08-26] MEDS: CALCIUM CARBONATE 250 MG/VITAMIN D3 125 UNIT TABLET PO SCH ×2 (09:38→21:27)
[2016-08-26] MEDS: TIOTROPIUM BROMIDE DPI 5 CAP/KIT (18 MCG/CAP) IH SCH (09:38)
[2016-08-26] MEDS: ANASTROZOLE 1 MG TABLET PO SCH (09:39)
[2016-08-26] MEDS: FLUTICASONE NASAL SPRAY 50 MCG/SPRY 120 SPRAY/16 GM NASL SCH ×2 (09:40→21:27)
[2016-08-26] MEDS: POLYETHYLENE GLYCOL 3350 POWDER 17 GM/1 PACKET PO SCH (09:41)
[2016-08-26] MEDS: DOCUSATE SODIUM 100 MG CAPSULE PO SCH (09:41)
[2016-08-26] MEDS: RIVAROXABAN 10 MG TABLET PO SCH (17:36)
[2016-08-26] MEDS: ACETAMINOPHEN 325 MG TABLET PO PRN (20:14)
[2016-08-27] MEDS: METHYLPREDNISOLONE INJ 125 MG/2 ML SDV IV SCH ×2 (06:34→21:51)
[2016-08-27] MEDS: LANSOPRAZOLE 30 MG TAB.RAP.DR PO SCH ×2 (06:34→16:56)
[2016-08-27] MEDS: BENZONATATE 100 MG CAPSULE PO SCH ×3 (06:34→21:50)
[2016-08-27] MEDS: IPRATROPIUM/ALBUTEROL 0.5-2.5 MG/3 ML AMPUL NEB SCH ×4 (09:26→21:20)
[2016-08-27] MEDS: LEVOFLOXACIN 500 MG TABLET PO SCH (09:38)
[2016-08-27] MEDS: CALCIUM CARBONATE 250 MG/VITAMIN D3 125 UNIT TABLET PO SCH ×2 (09:39→21:51)
[2016-08-27] MEDS: TIOTROPIUM BROMIDE DPI 5 CAP/KIT (18 MCG/CAP) IH SCH (09:40)
[2016-08-27] MEDS: DOCUSATE SODIUM 100 MG CAPSULE PO SCH (09:40)
[2016-08-27] MEDS: ANASTROZOLE 1 MG TABLET PO SCH (09:41)
[2016-08-27] MEDS: FLUTICASONE NASAL SPRAY 50 MCG/SPRY 120 SPRAY/16 GM NASL SCH ×2 (09:46→21:51)
[2016-08-27] MEDS: POLYETHYLENE GLYCOL 3350 POWDER 17 GM/1 PACKET PO SCH (09:47)
[2016-08-27] MEDS ORDERED: METHYLPREDNISOLONE INJ 125 MG/2 ML SDV IV ONE (14:55)
[2016-08-27] MEDS: RIVAROXABAN 10 MG TABLET PO SCH (16:56)
--- NOTE | 2016-08-27 17:27 | PDOC PROGRESS REPORT ---
Subjective Progress Note for:: 08/26/16 Subjective:: She is improving on present treatment Physical Exam Vital Signs: Temp Pulse Resp BP Pulse Ox 98.3 F 100 16 107/63 96 08/26/16 16:07 08/26/16 19:33 08/26/16 19:33 08/26/16 16:07 08/26/16 19:33 Intake & Output 08/25/16 08/26/16 08/27/16 06:59 06:59 06:59 Intake Total 1459 2029 955 Output Total 100 Balance 1359 2029 955 Weight 62.7 kg 63.6 kg General appearance: PRESENT: no acute distress Eye exam: PRESENT: PERRLA Respiratory exam: PRESENT: wheezes Cardiovascular exam: PRESENT: +S1, +S2 GI/Abdominal exam: PRESENT: soft Neurological exam: PRESENT: alert, CN II-XII grossly intact Results Laboratory Results: 08/23/16 06:29 08/23/16 06:29 Impressions: Chest X-Ray 08/19/16 20:09 IMPRESSION: COPD. NO ACUTE RADIOGRAPHIC FINDING IN THE CHEST. Assessment & Plan - Diagnosis (1) COPD exacerbation Is this a current diagnosis for this admission?: Yes (2) Constipation Qualifiers: Constipation type: unspecified constipation type Qualified Code(s): K59.00 - Constipation, unspecified Is this a current diagnosis for this admission?: Yes (3) Cough Is this a current diagnosis for this admission?: Yes (5) Status post bilateral mastectomy Is this a current diagnosis for this admission?: Yes
[2016-08-27] MEDS: ACETAMINOPHEN 325 MG TABLET PO PRN (21:51)
[2016-08-28] MEDS: BENZONATATE 100 MG CAPSULE PO SCH ×3 (05:43→22:16)
[2016-08-28] MEDS: METHYLPREDNISOLONE INJ 125 MG/2 ML SDV IV SCH ×2 (05:44→14:35)
[2016-08-28] MEDS: LANSOPRAZOLE 30 MG TAB.RAP.DR PO SCH ×2 (05:44→17:05)
[2016-08-28] MEDS: IPRATROPIUM/ALBUTEROL 0.5-2.5 MG/3 ML AMPUL NEB SCH ×4 (08:34→19:30)
[2016-08-28] MEDS: SODIUM CHLORIDE NASAL SPRAY 44 ML NASL SCH ×4 (10:23→22:15)
[2016-08-28] MEDS: FLUCONAZOLE 100 MG TABLET PO SCH (10:24)
[2016-08-28] MEDS: CALCIUM CARBONATE 250 MG/VITAMIN D3 125 UNIT TABLET PO SCH ×2 (10:24→22:15)
[2016-08-28] MEDS: TIOTROPIUM BROMIDE DPI 5 CAP/KIT (18 MCG/CAP) IH SCH (10:25)
[2016-08-28] MEDS: GUAIFENESIN 600 MG TABLET.SA PO SCH ×2 (10:25→22:16)
[2016-08-28] MEDS: LEVOFLOXACIN 500 MG TABLET PO SCH (10:25)
[2016-08-28] MEDS: ANASTROZOLE 1 MG TABLET PO SCH (10:26)
[2016-08-28] MEDS: FLUTICASONE NASAL SPRAY 50 MCG/SPRY 120 SPRAY/16 GM NASL SCH ×2 (10:26→22:25)
[2016-08-28] MEDS: POLYETHYLENE GLYCOL 3350 POWDER 17 GM/1 PACKET PO SCH (10:30)
[2016-08-28] MEDS: DOCUSATE SODIUM 100 MG CAPSULE PO SCH (10:30)
--- NOTE | 2016-08-28 15:50 | PDOC PROGRESS REPORT ---
Subjective Progress Note for:: 08/27/16 Subjective:: Patient continues to improve unfortunately we cannot change the Solu-Medrol to prednisone because she supposedly of prednisone allergy so she also continued to be weaned off the Solu-Medrol slowly that is the main reason why she is still staying in the hospital this long Physical Exam Vital Signs: Temp Pulse Resp BP Pulse Ox 98.0 F 116 H 16 132/74 H 97 08/27/16 15:41 08/27/16 16:12 08/27/16 16:12 08/27/16 15:41 08/27/16 15:41 Intake & Output 08/26/16 08/27/16 08/28/16 06:59 06:59 06:59 Intake Total 2029 1195 777 Balance 2029 1195 777 Weight 63.6 kg General appearance: PRESENT: no acute distress, well-developed, well-nourished Head exam: PRESENT: atraumatic, normocephalic Eye exam: PRESENT: conjunctiva pink, EOMI, PERRLA. ABSENT: scleral icterus Ear exam: PRESENT: normal external ear exam Mouth exam: PRESENT: moist, tongue midline Neck exam: PRESENT: full ROM. ABSENT: carotid bruit, JVD, lymphadenopathy, thyromegaly Respiratory exam: PRESENT: decreased breath sounds Cardiovascular exam: PRESENT: RRR, +S1 Pulses: PRESENT: normal dorsalis pedis pul, +2 pedal pulses bilateral Vascular exam: PRESENT: normal capillary refill GI/Abdominal exam: PRESENT: normal bowel sounds, soft Rectal exam: PRESENT: deferred Neurological exam: PRESENT: alert, awake, oriented to person, oriented to place , oriented to time, oriented to situation, CN II-XII grossly intact. ABSENT: motor sensory deficit Psychiatric exam: PRESENT: appropriate affect, normal mood Skin exam: PRESENT: dry, intact, warm Results Laboratory Results: 08/23/16 06:29 08/23/16 06:29 08/25/16 14:45 Sputum Gram Stain - Final 08/25/16 14:45 Sputum Sputum Culture - Final C.albicans/C.dubliniensis Reduced Normal Meenu Impressions: Chest X-Ray 08/19/16 20:09 IMPRESSION: COPD. NO ACUTE RADIOGRAPHIC FINDING IN THE CHEST. Assessment & Plan - Diagnosis (1) COPD exacerbation Is this a current diagnosis for this admission?: Yes (2) Constipation Qualifiers: Constipation type: unspecified constipation type Qualified Code(s): K59.00 - Constipation, unspecified Is this a current diagnosis for this admission?: Yes (3) Cough Is this a current diagnosis for this admission?: Yes (5) Status post bilateral mastectomy Is this a current diagnosis for this admission?: Yes
--- NOTE | 2016-08-28 15:52 | PDOC PROGRESS REPORT ---
Subjective Progress Note for:: 08/28/16 Subjective:: She was seen by the bedside she is much improved the Solu-Medrol dose will be weaned down to 15 NG hopefully discharge home in a day or 2 Physical Exam Vital Signs: Temp Pulse Resp BP Pulse Ox 98.4 F 115 H 18 127/83 H 95 08/28/16 11:42 08/28/16 15:33 08/28/16 15:33 08/28/16 11:42 08/28/16 11:42 Intake & Output 08/27/16 08/28/16 08/29/16 06:59 06:59 06:59 Intake Total 1195 1317 210 Balance 1195 1317 210 General appearance: PRESENT: no acute distress, well-developed, well-nourished Head exam: PRESENT: atraumatic, normocephalic Eye exam: PRESENT: conjunctiva pink, EOMI, PERRLA. ABSENT: scleral icterus Ear exam: PRESENT: normal external ear exam Mouth exam: PRESENT: moist, tongue midline Neck exam: PRESENT: full ROM. ABSENT: carotid bruit, JVD, lymphadenopathy, thyromegaly Respiratory exam: PRESENT: decreased breath sounds Cardiovascular exam: PRESENT: RRR, +S1, +S2 Pulses: PRESENT: normal dorsalis pedis pul, +2 pedal pulses bilateral Vascular exam: PRESENT: normal capillary refill GI/Abdominal exam: PRESENT: normal bowel sounds, soft. ABSENT: distended, guarding, mass, organolmegaly, rebound, tenderness Rectal exam: PRESENT: deferred Neurological exam: PRESENT: alert, awake, oriented to person, oriented to place , oriented to time, oriented to situation, CN II-XII grossly intact. ABSENT: motor sensory deficit Psychiatric exam: PRESENT: appropriate affect, normal mood. ABSENT: homicidal ideation, suicidal ideation Skin exam: PRESENT: dry, intact, warm. ABSENT: cyanosis, rash Results Laboratory Results: 08/23/16 06:29 08/23/16 06:29 08/25/16 14:45 Sputum Gram Stain - Final 08/25/16 14:45 Sputum Sputum Culture - Final C.albicans/C.dubliniensis Reduced Normal Meenu Impressions: Chest X-Ray 08/19/16 20:09 IMPRESSION: COPD. NO ACUTE RADIOGRAPHIC FINDING IN THE CHEST. Assessment & Plan - Diagnosis (1) COPD exacerbation Is this a current diagnosis for this admission?: YesPlan: Reduce the Solu-Medrol dose to 15 mg IV q. 8 (2) Constipation Qualifiers: Constipation type: unspecified constipation type Qualified Code(s): K59.00 - Constipation, unspecified Is this a current diagnosis for this admission?: Yes (3) Cough Is this a current diagnosis for this admission?: Yes (5) Status post bilateral mastectomy Is this a current diagnosis for this admission?: Yes
[2016-08-28] MEDS: RIVAROXABAN 10 MG TABLET PO SCH (17:27)
[2016-08-28] MEDS: METHYLPREDNISOLONE INJ 40 MG/1 ML SDV IV SCH (22:16)
[2016-08-28] MEDS: ACETAMINOPHEN 325 MG TABLET PO PRN (22:16)
[2016-08-29] MEDS: SODIUM CHLORIDE NASAL SPRAY 44 ML NASL SCH ×3 (01:41→09:34)
[2016-08-29] MEDS: METHYLPREDNISOLONE INJ 40 MG/1 ML SDV IV SCH (06:52)
[2016-08-29] MEDS: ACETAMINOPHEN 325 MG TABLET PO PRN (06:52)
[2016-08-29] MEDS: BENZONATATE 100 MG CAPSULE PO SCH (06:52)
[2016-08-29] MEDS: LANSOPRAZOLE 30 MG TAB.RAP.DR PO SCH (06:52)
[2016-08-29] MEDS: IPRATROPIUM/ALBUTEROL 0.5-2.5 MG/3 ML AMPUL NEB SCH (08:18)
--- NOTE | 2016-08-29 08:28 | PDOC DISCHARGE SUMMARY ---
General - Admit/Disc Date/PCP Admission Date/Primary Care Provider: 08/20/16 04:27 LUKASZ ORNELAS Discharge Date: 08/29/16 - Discharge Diagnosis (1) Status post bilateral mastectomy Is this a current diagnosis for this admission?: Yes (2) Constipation Is this a current diagnosis for this admission?: Yes (3) COPD exacerbation Is this a current diagnosis for this admission?: Yes (4) GERD (gastroesophageal reflux disease) Is this a current diagnosis for this admission?: Yes (5) HLD (hyperlipidemia) Is this a current diagnosis for this admission?: Yes - Additional Information Discharge Diet: Regular Home Medications: Budesonide/Formoterol Fumarate [Symbicort HFA 160-4.5 mcg Inhaler 6 gm] 2 puff IH Q12 08/22/16 Calcium Carbonate/Vitamin D3 [Calcium 500 + Vit D Caplet] 1 tab PO Q12 08/22/16 Exemestane [Aromasin] 25 mg PO DAILY 08/22/16 Fluticasone Propionate [Flonase Nasal Champion 50 Mcg/Champion 16 gm] 2 spray NASL DAILY 08/22/16 Levalbuterol Tartrate [Xopenex Hfa] 2 puff IH Q4HP PRN 08/22/16 Megestrol Acetate [Megace Es] 5 ml PO DAILY 08/22/16 Oxycodone HCl/Acetaminophen [Percocet 5-325 mg Tablet] 1 tab PO Q6HP PRN Polyethylene Glycol 3350 [Miralax Powder 17 gm/Packet] 17 gm PO DAILY 08/22/16 Potassium Chloride [K-Tab ER] 20 meq PO DAILY 08/22/16 Rivaroxaban [Xarelto] 20 mg PO WSUPPER 08/22/16 Simethicone [Mylicon 80 mg Chewable Tablet] 160 mg PO Q8HP PRN 08/22/16 Tiotropium [place] [Spiriva Handihaler 18 mcg/dose (30 Dose)] 1 cap IH DAILY Benzonatate [Tessalon Perle 100 mg Capsule] 200 mg PO TIDP PRN #60 capsule 08/29 Docusate Sodium [Colace 100 mg Capsule] 200 mg PO DAILY #60 capsule 08/29/16 Fluconazole [Diflucan 100 mg Tablet] 100 mg PO DAILY #7 tablet 08/29/16 Levalbuterol HCl [Xopenex Neb 1.25 mg/3 ml Ampul] 1.25 mg NEB RTQ4HP PRN #100 vial.neb 08/29/16 Methylprednisolone [Medrol Dosepack (4 mg/Tab) 21 Tab/Dosepak] 4 mg PO ASDIR # 21 tab.ds.pk 08/29/16 History of Present Illness Patient complains of: Difficulty with breathing History of Present Illness: ARIELLA JUAREZ is a 51 year old female with a significant history of COPD and a chronic smoker with a history of breast cancer and a history of the DVT came to the emergency department with accompanied shortness of the breath cough and congestions since last 1 week. Patient was seen by the PCP and started on Augmentin. Patient's grandson was also sick the some flulike symptoms. In the ER patient was for COPD with acute exacerbation and patient was put on a DuoNeb nebulizer and when I saw the patient on the floor patient is doing better but still have a wheezings and coughing spell. Patient's denied any chest pain denied any nausea no vomiting. She is currently on xerlato for DVT. Patient also see her Dr. Baker for breast cancer and currently all stable. Hospital Course Hospital Course: Patient was admitted as a case of exacerbated COPD and responded to IV steroid and bronchodilator therapy. She received 9 days of IV Levofloxacin therapy. She was started on oral Diflucan due to possible oral thrush. She will be discharged home on Diflucan for 7 more days. Due to reported allergy to oral Prednisone, she will be discharge home on Medrol Dose pack 4mg tablet 21 tablets therapy over next 6 days. Her clinical condition has improved and she is agreeable to discharge home today. She will follow up in the office as instructed upon discharge. Physical Exam Vital Signs: Temp Pulse Resp BP Pulse Ox 98.3 F 105 H 14 114/76 93 08/29/16 07:39 08/29/16 08:18 08/29/16 08:18 08/29/16 07:39 08/29/16 08:18 Intake & Output 08/28/16 08/29/16 08/30/16 06:59 06:59 06:59 Intake Total 1317 830 Balance 1317 830 Physical Exam: General appearance: PRESENT: cooperative, mild distress - on supplemental oxygen via nasal canula at 2L/min Head exam: PRESENT: atraumatic, normocephalic Eye exam: PRESENT: conjunctiva pink, EOMI, PERRLA. ABSENT: scleral icterus Ear exam: PRESENT: normal external ear exam Mouth exam: PRESENT: moist, tongue midline Teeth exam: PRESENT: edentulous Throat exam: ABSENT: post pharyngeal erythema, tonsillar erythema, tonsillar exudate, tonsillogmegaly, other Neck exam: PRESENT: full ROM. ABSENT: carotid bruit, JVD, lymphadenopathy, thyromegaly Respiratory exam: ABSENT: accessory muscle use, chest wall tenderness, clear to auscultation darinel, rhonchi, wheezes, crackles, decreased breath sounds, prolonged expiratory phas, rales, retraction, stridor, symmetrical, tachypnea, unlabored, other Cardiovascular exam: PRESENT: tachycardia. ABSENT: bradycardia, clicks, diastolic murmur, gallop, irregular rhythm, RRR, rubs, +S1, +S2, systolic murmur , other GI/Abdominal exam: PRESENT: normal bowel sounds, soft. ABSENT: distended, guarding, mass, organomegaly, rebound, tenderness Extremities exam: PRESENT: full ROM Musculoskeletal exam: PRESENT: ambulatory, deformity - related to joint involvement in arthritis Neurological exam: PRESENT: alert, awake, oriented to person, oriented to place , oriented to time, oriented to situation, CN II-XII grossly intact. ABSENT: motor sensory deficit Results Laboratory Results: 08/23/16 06:29 08/23/16 06:29 Impressions: Chest X-Ray 08/19/16 20:09 IMPRESSION: COPD. NO ACUTE RADIOGRAPHIC FINDING IN THE CHEST. Qualifiers PATEINT BEING DISCHARGED WITH ANY OF THE FOLLOWING DIAGNOSIS?: No Plan Discharge Plan: D/C home today with office follow up as instructed upon discharge. Time Spent: Less than 30 Minutes
[2016-08-29] MEDS: ANASTROZOLE 1 MG TABLET PO SCH (09:29)
[2016-08-29] MEDS: GUAIFENESIN 600 MG TABLET.SA PO SCH (09:30)
[2016-08-29] MEDS: TIOTROPIUM BROMIDE DPI 5 CAP/KIT (18 MCG/CAP) IH SCH (09:30)
[2016-08-29] MEDS: CALCIUM CARBONATE 250 MG/VITAMIN D3 125 UNIT TABLET PO SCH (09:30)
[2016-08-29] MEDS: FLUCONAZOLE 100 MG TABLET PO SCH (09:31)
[2016-08-29] MEDS: FLUTICASONE NASAL SPRAY 50 MCG/SPRY 120 SPRAY/16 GM NASL SCH (09:31)
[2016-08-29] MEDS: LEVOFLOXACIN 500 MG TABLET PO SCH (09:31)
[2016-08-29] MEDS: POLYETHYLENE GLYCOL 3350 POWDER 17 GM/1 PACKET PO SCH (09:34)
[2016-08-29] MEDS: DOCUSATE SODIUM 100 MG CAPSULE PO SCH (09:34)
[2016-08-29 09:40] VITALS: BP 113/68
== END 2016-08-29 11:27 | disposition home or self-care (01) | DRG 191 ==
LOC: ER 19:06 → UNDOADMIN 08-20 01:59 → EH 08-20 01:59 → 5 08-20 03:50 → EH 08-20 04:27
PROVIDERS: ADMIT Internal Medicine Geriatric Medicine; ATTEND Internal Medicine Geriatric Medicine
PROC: 3E0F73Z Introduction of Anti-inflammatory into Respiratory Tract, Via Natural or Artificial Opening (ICD-10-PCS; principal; 2016-08-20)
DX: J44.1 Chronic obstructive pulmonary disease with (acute) exacerbation (principal); B37.0 Candidal stomatitis; I69.854 Hemiplegia and hemiparesis following other cerebrovascular disease affecting left non-dominant side; K21.9 Gastro-esophageal reflux disease without esophagitis; K59.00 Constipation, unspecified; J45.909 Unspecified asthma, uncomplicated; F32.9 Major depressive disorder, single episode, unspecified; E78.00 Pure hypercholesterolemia, unspecified; I50.9 Heart failure, unspecified; Z90.13 Acquired absence of bilateral breasts and nipples; Z79.899 Other long term (current) drug therapy; Z87.891 Personal history of nicotine dependence; Z85.3 Personal history of malignant neoplasm of breast; Z86.718 Personal history of other venous thrombosis and embolism; Z60.2 Problems related to living alone; Z88.8 Allergy status to other drugs, medicaments and biological substances
CPT/HCPCS: 36415; 71010; 80048; 80053; 82550; 82553; 82803; 83735; 84484; 85025; 85027; 87040; 87070; 87205; 93005; 93010; 94640; 94667; 96365; 96366; 96375; 99285; J1956; J2920; J2930; J3475; J3490; J7030; J7620

== ENCOUNTER → 2016-11-15 | Outpatient (CLI) | payer MEDICARE, OTHER ==
--- NOTE | 2016-11-15 10:48 | RADIOLOGY REPORT (SQ) ---
EXAM DESCRIPTION: CT ABDOMEN COMBO COMPLETED DATE/TIME: 11/15/2016 10:22 am REASON FOR STUDY: SOFT TISSUE MASS R93.5 ABN FINDINGS ON DX IMAGING OF [facility], [facility] COMPARISON: None. TECHNIQUE: CT scan of the abdomen performed with and without intravenous contrast, and without oral contrast. Contrasted imaging performed using helical scanning technique with dynamic intravenous cont rast injection. Images reviewed with lung, soft tissue, and bone windows. Reconstructed coronal and s agittal MPR images reviewed. Delayed images for evaluation of the urinary system also acquired and ev aluated. All images stored on PACS. All CT scanners at this facility use dose modulation, iterative reconstruction, and/or weight based d osing when appropriate to reduce radiation dose to as low as reasonably achievable (ALARA). [facility]: Dose Right [facility]: CareDose [facility]: Dose Right [facility]: Teradose 4D [facility]: [employer] CONTRAST TYPE AND DOSE: 62mL Isovue 370- low osmolar. RENAL FUNCTION: Creatinine 0.9 BUN 11 RADIATION DOSE: 26.24mGy. LIMITATIONS: None. FINDINGS: NONCONTRASTED IMAGING: No significant renal or bladder calcifications. No other significan t organ calcifications. POSTCONTRASTED IMAGING: LOWER CHEST: No significant findings. No nodules or infiltrates. LIVER: Normal size. No masses or dilated ducts. SPLEEN: Normal size. No focal lesions. PANCREAS: No masses. No significant calcifications. No adjacent inflammation or peripancreatic fluid collections. Pancreatic duct not dilated. GALLBLADDER: No identified stones by CT criteria. No inflammatory changes to suggest cholecystitis. ADRENAL GLANDS: No significant masses or asymmetry. RIGHT KIDNEY AND URETER: No solid masses. No significant calcifications. No hydronephrosis or hyd roureter. LEFT KIDNEY AND URETER: No solid masses. No significant calcifications. No hydronephrosis or hydr oureter. AORTA AND VESSELS: No aneurysm. No dissection. Renal arteries, SMA, celiac without stenosis. RETROPERITONEUM: No retroperitoneal adenopathy, hemorrhage or masses. BOWEL AND PERITONEAL CAVITY: No masses or inflammatory changes. No free fluid or peritoneal masses. APPENDIX: Not included. ABDOMINAL WALL: No masses. No hernias. BONES: No significant or acute findings. OTHER: No abdominal masses appreciated. IMPRESSION: NO SIGNIFICANT OR ACUTE ABNORMALITY IN THE ABDOMEN. TECHNICAL DOCUMENTATION: JOB ID: [id number] Quality ID # [id number]: Final reports with documentation of one or more dose reduction techniques (e.g., Au tomated exposure control, adjustment of the mA and/or kV according to patient size, use of iterative reconstruction technique) 2010 [employer]- All Rights Reserved
== END ==
LOC: RAD 09:30
PROVIDERS: ATTEND Internal Medicine Medical Oncology
DX: R93.5 Abnormal findings on diagnostic imaging of other abdominal regions, including retroperitoneum (principal)
CPT/HCPCS: 74170

== ENCOUNTER → 2017-01-27 | Outpatient (CLI) | payer MEDICARE, OTHER ==
--- NOTE | 2017-01-27 12:10 | RADIOLOGY REPORT (SQ) ---
EXAM DESCRIPTION: CT ABDOMEN IV CONTRAST ONLY COMPLETED DATE/TIME: 01/27/2017 11:20 am REASON FOR STUDY: ABD PAIN R10.9 UNSPECIFIED ABDOMINAL PAIN COMPARISON: 11/15/2016 TECHNIQUE: CT scan of the abdomen performed with intravenous and without oral contrast using helical scanning technique with dynamic intravenous contrast injection. Images reviewed with lung, soft tiss ue, and bone windows. Reconstructed coronal and sagittal MPR images reviewed. Delayed images for eval uation of the urinary system also acquired and evaluated. All images stored on PACS. All CT scanners at this facility use dose modulation, iterative reconstruc tion, and/or weight based dosing when appropriate to reduce radiation dose to as low as reasonably ac hievable (ALARA). [facility]: Dose Right [facility]: CareDose [facility]: Dose Right [facility]: Teradose 4D [facility]: [employer] CONTRAST TYPE AND DOSE: contrast/concentration: Isovue 370.00 mg/ml; Total Contrast Delivered: 58.0 ml; Total Saline Delivered: 38.3 ml RENAL FUNCTION: Creatinine 1 BUN 11 RADIATION DOSE: Up-to-date CT equipment and radiation dose reduction techniques were employed. CTDIv ol: 4.8 - 5.0 mGy. DLP: 275 mGy-cm. . LIMITATIONS: None. FINDINGS: LOWER CHEST: No significant findings. No nodules or infiltrates. LIVER: Normal size. No masses. No dilated ducts. SPLEEN: Normal size. No focal lesions. PANCREAS: No masses. No significant calcifications. No adjacent inflammation or peripancreatic fluid collections. Pancreatic duct not dilated. GALLBLADDER: No identified stones by CT criteria. No inflammatory changes to suggest cholecystitis. ADRENAL GLANDS: No significant masses or asymmetry. RIGHT KIDNEY AND URETER: No solid masses. No significant calcifications. No hydronephrosis or hyd roureter. LEFT KIDNEY AND URETER: No solid masses. No significant calcifications. No hydronephrosis or hydr oureter. AORTA AND VESSELS: No aneurysm. No dissection. Renal arteries, SMA, celiac without stenosis. RETROPERITONEUM: No retroperitoneal adenopathy, hemorrhage or masses. BOWEL AND PERITONEAL CAVITY: No masses or inflammatory changes. No free fluid or peritoneal masses. APPENDIX: Not included. ABDOMINAL WALL: No masses. No hernias. BONES: No significant or acute findings. OTHER: No other significant finding. IMPRESSION: NORMAL CT OF THE ABDOMEN WITH INTRAVENOUS CONTRAST. TECHNICAL DOCUMENTATION: JOB ID: [id number] Quality ID # [id number]: Final reports with documentation of one or more dose reduction techniques (e.g., Au tomated exposure control, adjustment of the mA and/or kV according to patient size, use of iterative reconstruction technique) 2010 [employer]- All Rights Reserved
== END ==
LOC: RAD 10:36
PROVIDERS: ATTEND Internal Medicine Medical Oncology
DX: R10.9 Unspecified abdominal pain (principal)
CPT/HCPCS: 74160

== ENCOUNTER 2017-03-02 07:50 | Inpatient (IN) | payer MEDICARE, OTHER ==
[2017-03-02] MEDS ORDERED: IPRATROPIUM/ALBUTEROL 0.5-2.5 MG/3 ML AMPUL NEB ONE ×4 (08:10→08:33)
[2017-03-02] MEDS ORDERED: ALBUTEROL SULFATE 0.083% NEB 2.5 MG/3 ML AMPUL NEB ONE ×2 (08:11→08:52)
[2017-03-02] MEDS ORDERED: DEXAMETHASONE SOD PHOS INJ 10 MG/1 ML VIAL IV ONE (08:12)
--- NOTE | 2017-03-02 08:13 | ER Document Report ---
ED Respiratory Problem - General Mode of Arrival: Ambulatory Information source: Patient TRAVEL OUTSIDE OF THE [place] IN LAST 30 DAYS: No - HPI Patient complains to provider of: Short of breath Onset: Other - 2 weeks worse this morning Duration: Worse/persistent Context: Hx asthma, Hx COPD Associated symptoms: Other - see above <MALA GARDNER - Last Filed: 03/02/17 10:09> <THU BARAJAS - Last Filed: 03/02/17 10:11> - General Chief Complaint: Breathing Difficulty Stated Complaint: DIFFICULTY BREATHING Time Seen by Provider: 03/02/17 08:05 Notes: Patient is a 51 year old female with a history of asthma, COPD and pneumonia who presents to the ED with complaints of dyspnea for the past 2 weeks that significantly worsened this morning. Patient last used her inhaler last night, she did not use it yet this morning. She states that she also has an associated headache, body aches, and states it hurts to breath. She was nauseous last night and states she feels very fatigued. She denies a known fever or swelling in her extremities. Patient is on xarelto from a DVT she had several years ago, she denies ever having a PE. Patient has had pneumonia 1x in the past. She states she is allergic to prednisone. (MALA GARDNER) - Related Data Allergies/Adverse Reactions: prednisone [Prednisone] Adverse Reaction (Intermediate, Verified 03/02/17 07:59) Past Medical History - General Information source: Patient - Social History Smoking Status: Unknown if Ever Smoked Family History: Reviewed & Not Pertinent Patient has suicidal ideation: No Patient has homicidal ideation: No - Past Medical History Cardiac Medical History: Reports: Hx Hypercholesterolemia Pulmonary Medical History: Reports: Hx Asthma, Hx COPD, Hx Pneumonia Neurological Medical History: Reports: Hx Cerebrovascular Accident - WEAKNESS ON LEFT SIDE Endocrine Medical History: Renal/ Medical History: Reports: Hx Ovarian Cysts Malignancy Medical History: Reports: Hx Breast Cancer GI Medical History: Reports: Hx Hiatal Hernia Musculoskeltal Medical History: Psychiatric Medical History: Reports: Hx Depression Denies: Hx Dementia Infectious Medical History: Past Surgical History: Reports: Hx Mastectomy - bilat 2010. Denies: Hx Hysterectomy, Hx Pacemaker - Immunizations Hx Diphtheria, Pertussis, Tetanus Vaccination: No Hx Pneumococcal Vaccination: 06/26/11 <MALA GARDNER - Last Filed: 03/02/17 10:09> Review of Systems - Review of Systems Constitutional: See HPI. denies: Fever EENT: No symptoms reported Cardiovascular: No symptoms reported Respiratory: See HPI, Hurts to breathe, Short of breath Gastrointestinal: See HPI, Nausea Genitourinary: No symptoms reported Female Genitourinary: No symptoms reported Musculoskeletal: See HPI, Other - body aches Skin: No symptoms reported Hematologic/Lymphatic: No symptoms reported Neurological/Psychological: See HPI, Headaches <MALA GARDNER - Last Filed: 03/02/17 10:09> Physical Exam - General General appearance: Alert In distress: Mild - HEENT Head: Normocephalic, Atraumatic Eyes: Normal Extraocular movements intact: Yes Pupils: PERRL - Respiratory Respiratory status: Tachypnea Breath sounds: Decreased air movement, Wheezing - bilaterally - Cardiovascular Rhythm: Tachycardia - 130s Heart sounds: Normal auscultation Murmur: No - Abdominal Inspection: Normal Distension: No distension Tenderness: Nontender - Back Back: Normal - Extremities General upper extremity: Normal inspection, Normal ROM General lower extremity: Normal inspection, Normal ROM. No: Edema - Neurological Neuro grossly intact: Yes - Psychological Associated symptoms: Normal affect, Normal mood - Skin Skin Temperature: Warm Skin Moisture: Dry Skin Color: Normal <MAAL GARDNER - Last Filed: 03/02/17 10:09> - Vital signs Vitals: Temp Pulse Resp BP Pulse Ox 98.7 F 110 H 34 H 118/79 96 03/02/17 08:00 03/02/17 08:00 03/02/17 08:00 03/02/17 08:00 03/02/17 08:00 Course - Laboratory Result Diagrams: 03/02/17 08:19 03/02/17 08:19 - Consults Dr. Ornelas Time consulted: 10:07 Consulted provider: will see as inpatient <MALA GARDNER - Last Filed: 03/02/17 10:09> - Laboratory Result Diagrams: 03/02/17 08:19 03/02/17 08:19 <THU BARAJAS - Last Filed: 03/02/17 10:11> - Vital Signs Vital signs: Temp Pulse Resp BP Pulse Ox 98.7 F 110 H 34 H 118/79 96 03/02/17 08:00 03/02/17 08:00 03/02/17 08:00 03/02/17 08:00 03/02/17 08:00 - Laboratory Laboratory results interpreted by me: 03/02/17 03/02/17 08:19 08:19 MCV 100 H RDW 14.1 H Chloride 108 H Est GFR (Non-Af Amer) 59 L Calcium 10.3 H - Consults Dr. Ornelas Reason for consultation: 03/02/17 10:07 Discussed patient. Patient is accepted for admission. (MALA GARDNER) Discharge <MALA GARDNER - Last Filed: 03/02/17 10:09> - Discharge Admitting Provider: Celsa <THU BARAJAS - Last Filed: 03/02/17 10:11> - Discharge Clinical Impression: COPD exacerbation Condition: Fair Disposition: ADMITTED OBSERVATION Referrals: LUKASZ ORNELAS MD [Primary Care Provider] - Follow up as needed Scribe Documentation - Scribe Written by Scribe:: petra Parikh, 03/02/2017, 0825 acting as scribe for :: [place] <MALA GARDNER - Last Filed: 03/02/17 10:09>
[2017-03-02 08:34] LABS: ABSOLUTE BASOPHILS # (AUTO) 0.1 10^3/uL (0.0-0.2); ABSOLUTE EOSINOPHILS # (AUTO) 0.1 10^3/uL (0.0-0.6); ABSOLUTE LYMPHOCYTES (AUTO) 1.9 10^3/uL (0.5-4.7); ABSOLUTE MONOCYTES (AUTO) 0.7 10^3/uL (0.1-1.4); ABSOLUTE NEUT (AUTO) 3.6 10^3/uL (1.7-8.2); BASOPHILS % (AUTO) 1.1 % (0-2); EOSINOPHILS % (AUTO) 0.8 % (0-6); HEMATOCRIT 43.3 % (36.0-47.0); HEMOGLOBIN 14.2 g/dL (12.0-15.5); HGB HCT DIFFERENCE -0.7; MEAN CORPUSCULAR HEMOGLOBIN 32.7 pg (27.0-33.4); MEAN CORPUSCULAR HGB CONC 32.8 g/dL (32.0-36.0); MEAN CORPUSCULAR VOLUME 100 fl (80-97); MONOCYTES % (AUTO) 11.2 % (3-13); RED BLOOD COUNT 4.34 10^6/uL (3.72-5.28); RED CELL DISTRIBUTION WIDTH 14.1 % (11.5-14.0); SEGMENTED NEUTROPHILS % (AUTO) 56.9 % (42-78); WHITE BLOOD COUNT 6.3 10^3/uL (4.0-10.5)
[2017-03-02 08:42] LABS: ALANINE AMINOTRANSFERASE 14 U/L (9-52); ALBUMIN 4.6 g/dL (3.5-5.0); ALKALINE PHOSPHATASE 51 U/L (38-126); ANION GAP 13 (5-19); ASPARTATE AMINO TRANSFERASE 19 U/L (14-36); BILIRUBIN,DIRECT 0.4 mg/dL (0.0-0.4); BILIRUBIN,TOTAL 0.8 mg/dL (0.2-1.3); BLOOD UREA NITROGEN 9 mg/dL (7-20); CALCIUM 10.3 mg/dL (8.4-10.2); CARBON DIOXIDE 23 mmol/L (22-30); CHLORIDE 108 mmol/L (98-107); CREATININE RESULT 0.99 mg/dL (0.52-1.25); GLUCOSE 93 mg/dL (75-110); SODIUM 144.1 mmol/L (137-145); TOTAL PROTEIN 8.2 g/dL (6.3-8.2)
[2017-03-02] MEDS ORDERED: MAGNESIUM SULFATE/D5W 2 GM/200 ML RTUPB IV ONE (08:51)
[2017-03-02] MEDS: MAGNESIUM SULFATE/D5W 1 GM/100 ML RTUPB IV SCH ×2 (08:52→13:53)
--- NOTE | 2017-03-02 08:52 | RADIOLOGY REPORT (SQ) ---
EXAM DESCRIPTION: CHEST SINGLE VIEW COMPLETED DATE/TIME: 03/02/2017 8:33 am REASON FOR STUDY: short of breath COMPARISON: CT chest 04/02/2016, 07/15/2016 Chest films 04/05/2016, 08/19/2016 NUMBER OF VIEWS: One view. TECHNIQUE: Single frontal radiographic view of the chest acquired. LIMITATIONS: None. FINDINGS: LUNGS AND PLEURA: No opacities, masses or pneumothorax. No pleural effusion. Attenuated bl ood vessels and flattened khang-diaphragms. MEDIASTINUM AND HILAR STRUCTURES: No masses. Contour normal. HEART AND VASCULAR STRUCTURES: Heart normal in size. Normal vasculature. BONES: No acute findings. HARDWARE: Left humeral head replacement. Surgical clips left axilla. OTHER: No other significant finding. IMPRESSION: COPD. NO ACUTE RADIOGRAPHIC FINDING IN THE CHEST. TECHNICAL DOCUMENTATION: JOB ID: [id number]- All Rights Reserved
[2017-03-02] MEDS ORDERED: LEVALBUTEROL HCL NEB 1.25 MG/3 ML AMPUL NEB ONE (14:17)
[2017-03-02] MEDS: NORMAL SALINE 1000 ML 1,000 ML IV PRN (14:46)
[2017-03-02] MEDS ORDERED: (PENDING PHARMACY ID) (Levalbuterol Tartrate [Xopenex Hfa] 1 PUFF) IH PRN (15:51)
[2017-03-02] MEDS ORDERED: IPRATROPIUM BROMIDE 0.06% NASAL SPRAY 15 ML NASL SCH (16:00)
[2017-03-02] MEDS: RIVAROXABAN 10 MG TABLET PO SCH (17:25)
[2017-03-02] MEDS: LEVALBUTEROL HCL NEB 1.25 MG/3 ML AMPUL NEB SCH (20:29)
--- NOTE | 2017-03-02 20:55 | PDOC H&P ---
History of Present Illness Admission Date/PCP: 03/02/17 13:13 LUKASZ OSUNKOYA Patient complains of: Difficulty with breathing History of Present Illness: ARIELLA JUAREZ is a 51 year old female known to my practice who presented to the ED with complain of worsening difficulty with breathing over last 2 weeks. She was in demonstrable respiratory difficulty at the time of her presentation with use of accessory muscles and audible wheezing necessitating administration of Decadron and magnesium IV in the ED along with several bronchodilators therapy. Despite her initial treatment she continue to demonstrate persistent difficulty with breathing and she was advised hospitalization. She has history of COPD and continue to smoke cigarette. She reported associated coughing with ting of blood streaks in the sputum. There is associated chest discomfort that she localized to left chest region and attributed to muscle spasm. She claimed worsening muscle spasm in recent time with significant intensity. She denied definite fever but admitted to chills. No headache, dizziness or vertigo. Her morbidities include Hyperlipidemia, Asthma, COPD, CVA with minimal left sided weakness, GERD, Hiatus Hernia, Depression, Breast cancer s/p bilateral mastectomies, and Ovarian Cysts. Past Medical History Cardiac Medical History: Reports: Hyperlipidema Denies: Coronary Artery Disease, Myocardial Infarction, Hypertension Pulmonary Medical History: Reports: Asthma, Chronic Obstructive Pulmonary Disease (COPD), Pneumonia Denies: Bronchitis, Respiratory Failure, Sleep Apnea, Tuberculosis Neurological Medical History: Denies: Seizures Endocrine Medical History: Malignancy Medical History: Reports: Breast Cancer GI Medical History: Reports: Gastroesophageal Reflux Disease, Hiatal Hernia Musculoskeltal Medical History: Denies: Arthritis Psychiatric Medical History: Reports: Depression Denies: Dementia Hematology: Denies: Anemia Past Surgical History Past Surgical History: Reports: Mastectomy - bilat 2010 Denies: Hysterectomy, Pacemaker Social History Smoking Status: Current Every Day Smoker Cigarettes Packs Per Day: 0.2 Frequency of Alcohol Use: Occasional Hx Recreational Drug Use: No Drugs: None Hx Prescription Drug Abuse: No - Advance Directive Resuscitation Status: Full Code Family History Family History: Reviewed & Not Pertinent Parental Family History Reviewed: Yes Children Family History Reviewed: Yes Sibling(s) Family History Reviewed.: Yes Medication/Allergy Home Medications: Budesonide/Formoterol Fumarate [Symbicort HFA 160-4.5 mcg Inhaler 6 gm] 1 spray IN Q12 03/02/17 Fluticasone Propionate [Flonase Nasal [place] 50 Mcg/[place] 16 gm] 1 spray NASL DAILY 03/02/17 Ipratropium [place] [Atrovent 0.06% Nasal [place]] 1 spray NASL Q2D 03/02/17 Lansoprazole [Prevacid] 300 mg PO DAILY 03/02/17 Levalbuterol Tartrate [Xopenex Hfa] 1 puff IH Q4HP PRN 03/02/17 Megestrol Acetate 400 mg PO DAILY 03/02/17 Rivaroxaban [Xarelto] 20 mg PO WSUPPER 03/02/17 Tiotropium [place]yer [Spiriva Handihaler 5 Cap/Kit (18 Mcg/Cap)] 1 puff IH DAILY 03/02/17 Allergies/Adverse Reactions: prednisone [Prednisone] Adverse Reaction (Intermediate, Verified 03/02/17 07:59) Review of Systems Constitutional: PRESENT: anorexia, chills, fatigue, weakness. ABSENT: fever(s) , headache(s), night sweats Eyes: ABSENT: visual disturbances Nose, Mouth, and Throat: ABSENT: headache(s), vertigo Cardiovascular: PRESENT: chest pain - related to muslce spasm and cramps, dyspnea on exertion Respiratory: PRESENT: cough, dyspnea, sputum Gastrointestinal: ABSENT: abdominal pain, constipation, diarrhea, hematemesis, hematochezia, nausea, vomiting Genitourinary: ABSENT: dysuria, hematuria Musculoskeletal: PRESENT: other - multiple sites involvement, muscle spasm adn pain. ABSENT: joint swelling Neurological: ABSENT: abnormal gait, abnormal speech, confusion, dizziness, focal weakness, syncope Psychiatric: ABSENT: anxiety, depression, homidical ideation, suicidal ideation Endocrine: ABSENT: cold intolerance, heat intolerance, polydipsia, polyphagia, polyuria Hematologic/Lymphatic: ABSENT: easy bleeding, easy bruising, lymphadenopathy Allergic/Immunologic: ABSENT: seasonal rhinorrhea Physical Exam Vital Signs: Temp Pulse Resp BP Pulse Ox 99.0 F 109 H 16 113/58 L 98 03/02/17 15:47 03/02/17 15:47 03/02/17 15:47 03/02/17 15:47 03/02/17 15:47 Intake & Output 03/01/17 03/02/17 03/03/17 06:59 06:59 06:59 Intake Total 375 Balance 375 General appearance: PRESENT: severe distress Head exam: PRESENT: atraumatic, normocephalic Eye exam: PRESENT: conjunctiva pink, EOMI, PERRLA. ABSENT: scleral icterus Ear exam: PRESENT: normal external ear exam Mouth exam: PRESENT: moist, tongue midline Teeth exam: PRESENT: edentulous - dentures in use Throat exam: ABSENT: post pharyngeal erythema, tonsillar erythema, tonsillar exudate, tonsillogmegaly, other Neck exam: PRESENT: full ROM. ABSENT: carotid bruit, JVD, lymphadenopathy, thyromegaly Respiratory exam: PRESENT: accessory muscle use, chest wall tenderness, decreased breath sounds, prolonged expiratory phas, retraction, rhonchi, tachypnea, wheezes Cardiovascular exam: PRESENT: RRR, tachycardia. ABSENT: diastolic murmur, rubs , systolic murmur Pulses: PRESENT: normal dorsalis pedis pul, +2 pedal pulses bilateral Vascular exam: PRESENT: normal capillary refill. ABSENT: pallor GI/Abdominal exam: PRESENT: normal bowel sounds, soft. ABSENT: distended, guarding, mass, organolmegaly, rebound, tenderness Rectal exam: PRESENT: deferred Extremities exam: ABSENT: pedal edema Musculoskeletal exam: PRESENT: normal inspection Neurological exam: PRESENT: alert, awake, oriented to person, oriented to place , oriented to time, oriented to situation, CN II-XII grossly intact. ABSENT: motor sensory deficit Psychiatric exam: PRESENT: appropriate affect, normal mood. ABSENT: homicidal ideation, suicidal ideation Skin exam: PRESENT: dry, intact, warm. ABSENT: cyanosis, rash Results Laboratory Results: I reviewed available lab results on Anxa and form significant portion of my medical decision making Impressions: Chest X-Ray 03/02/17 08:12 IMPRESSION: COPD. NO ACUTE RADIOGRAPHIC FINDING IN THE CHEST. Assessment & Plan - Diagnosis (1) COPD exacerbation Is this a current diagnosis for this admission?: Yes Plan: See admitting attending physician orders. (2) Cramps, muscle, general Is this a current diagnosis for this admission?: Yes Plan: See admitting attending physician orders. (3) Cigarette smoker one half pack a day or less Is this a current diagnosis for this admission?: Yes Plan: See admitting attending physician orders. (4) HLD (hyperlipidemia) Qualifiers: Hyperlipidemia type: unspecified Qualified Code(s): E78.5 - Hyperlipidemia , unspecified Is this a current diagnosis for this admission?: Yes Plan: See admitting attending physician orders. (5) GERD (gastroesophageal reflux disease) Qualifiers: Esophagitis presence: without esophagitis Qualified Code(s): K21.9 - Gastro -esophageal reflux disease without esophagitis Is this a current diagnosis for this admission?: Yes Plan: See admitting attending physician orders. (6) Depression Qualifiers: Depression Type: unspecified Qualified Code(s): F32.9 - Major depressive disorder, single episode, unspecified Is this a current diagnosis for this admission?: Yes Plan: See admitting attending physician orders. - Time Time Spent: 50 to 70 Minutes Smoking Cessation Education: 3 to 10 minutes Medications reviewed and adjusted accordingly: Yes Anticipated discharge: Home Within: Other - Inpatient Certification Based on my medical assessment, after consideration of the patient's comorbidities, presenting symptoms, or acuity I expect that the services needed warrant INPATIENT care.: Yes I certify that my determination is in accordance with my understanding of Medicare's requirements for reasonable and necessary INPATIENT services [42 CFR 412.3e].: Yes Medical Necessity: Need Close Monitoring Due to Risk of Patient Decompensation, Need For IV Fluids, Need For Continuous Telemetry Monitoring, Need for Nebulizer Therapy and Monitoring of Response, Risk of Complication if Not Cared For in Hospital 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
[2017-03-02] MEDS ORDERED: METHYLPREDNISOLONE INJ 125 MG/2 ML SDV IV ONE (21:00)
[2017-03-02] MEDS ORDERED: BUDESONIDE/FORMOTEROL 160-4.5 MCG 60 PUFF/6 GM MDI IH SCH (22:00)
[2017-03-02] MEDS: CYCLOBENZAPRINE HCL 10 MG TABLET PO PRN (23:56)
[2017-03-03] MEDS: LEVALBUTEROL HCL NEB 1.25 MG/3 ML AMPUL NEB SCH ×4 (01:43→19:32)
[2017-03-03] MEDS: METHYLPREDNISOLONE INJ 125 MG/2 ML SDV IV SCH ×3 (05:56→22:53)
[2017-03-03] MEDS: NORMAL SALINE 1000 ML 1,000 ML IV PRN ×2 (05:56→17:46)
[2017-03-03] MEDS: LANSOPRAZOLE 30 MG TAB.RAP.DR PO SCH (09:41)
[2017-03-03] MEDS: TIOTROPIUM BROMIDE DPI 5 CAP/KIT (18 MCG/CAP) IH SCH (09:41)
[2017-03-03] MEDS: FLUTICASONE NASAL SPRAY 50 MCG/SPRY 120 SPRAY/16 GM NASL SCH (09:43)
[2017-03-03] MEDS ORDERED: MEGESTROL ACETATE SUSP 400 MG/10 ML UDCUP PO SCH (10:00)
[2017-03-03] MEDS ORDERED: LANSOPRAZOLE PO SCH (10:00)
[2017-03-03] MEDS ORDERED: (PENDING PHARMACY ID) (Megestrol Acetate [Megestrol Acetate] 400 MG) PO SCH (10:00)
--- NOTE | 2017-03-03 15:30 | PDOC PROGRESS REPORT ---
Subjective Progress Note for:: 03/03/17 Subjective:: Patient reported some improvement in her breathing but still experience occasional wheezing, coughing and left sided chest pain with cough. Her muscle spasms/cramps is better. No nausea, vomiting, or abdominal pain. She reported using left over Augmentin orally for couple of days prior to presenting to the ED due to coughing with brownish yellow phlegm production. Physical Exam Vital Signs: Temp Pulse Resp BP Pulse Ox 98.1 F 98 18 109/70 100 03/03/17 12:00 03/03/17 14:15 03/03/17 14:15 03/03/17 12:00 03/03/17 14:15 Intake & Output 03/02/17 03/03/17 03/04/17 06:59 06:59 06:59 Intake Total 615 Balance 615 Weight 60.7 kg General appearance: PRESENT: mild distress Head exam: PRESENT: atraumatic, normocephalic Eye exam: PRESENT: conjunctiva pink, EOMI, PERRLA. ABSENT: scleral icterus Mouth exam: PRESENT: moist Respiratory exam: PRESENT: decreased breath sounds - at lung bases, rhonchi - expiratory phase, wheezes - expiratory phase Cardiovascular exam: PRESENT: RRR. ABSENT: diastolic murmur, rubs, systolic murmur GI/Abdominal exam: PRESENT: normal bowel sounds, soft. ABSENT: distended, guarding, mass, organolmegaly, rebound, tenderness Extremities exam: ABSENT: pedal edema Musculoskeletal exam: PRESENT: normal inspection Neurological exam: PRESENT: alert, awake, oriented to person, oriented to place , oriented to time, oriented to situation, CN II-XII grossly intact. ABSENT: motor sensory deficit Psychiatric exam: PRESENT: appropriate affect, normal mood. ABSENT: homicidal ideation, suicidal ideation Skin exam: PRESENT: dry, intact, warm. ABSENT: cyanosis, rash Results Impressions: Chest X-Ray 03/02/17 08:12 IMPRESSION: COPD. NO ACUTE RADIOGRAPHIC FINDING IN THE CHEST. Assessment & Plan - Diagnosis (1) COPD exacerbation Is this a current diagnosis for this admission?: Yes (2) Cramps, muscle, general Is this a current diagnosis for this admission?: Yes (3) Cigarette smoker one half pack a day or less Is this a current diagnosis for this admission?: Yes (4) HLD (hyperlipidemia) Qualifiers: Hyperlipidemia type: unspecified Qualified Code(s): E78.5 - Hyperlipidemia , unspecified Is this a current diagnosis for this admission?: Yes (5) GERD (gastroesophageal reflux disease) Qualifiers: Esophagitis presence: without esophagitis Qualified Code(s): K21.9 - Gastro -esophageal reflux disease without esophagitis Is this a current diagnosis for this admission?: Yes (6) Depression Qualifiers: Depression Type: unspecified Qualified Code(s): F32.9 - Major depressive disorder, single episode, unspecified Is this a current diagnosis for this admission?: Yes - Time Time Spent with patient: 25-34 minutes Medications reviewed and adjusted accordingly: Yes Anticipated discharge: Home Within: Other - Inpatient Certification Based on my medical assessment, after consideration of the patient's comorbidities, presenting symptoms, or acuity I expect that the services needed warrant INPATIENT care.: Yes I certify that my determination is in accordance with my understanding of Medicare's requirements for reasonable and necessary INPATIENT services [42 CFR 412.3e].: Yes Medical Necessity: Need Close Monitoring Due to Risk of Patient Decompensation, Need For IV Fluids, Need For Continuous Telemetry Monitoring, Need for Nebulizer Therapy and Monitoring of Response, Need for IV Antibiotics, Risk of Complication if Not Cared For in Hospital Post Hospital Care: D/C Sl[employer] 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 I will start on IV Levofloxacin coverage in view of her narrative, persistent left sided probable pleurisy, and exacerbated COPD presentation.
[2017-03-03] MEDS: LEVOFLOXACIN 500 MG/D5W RTU 500 MG/100 ML RTUPB IV SCH (17:45)
[2017-03-03] MEDS: RIVAROXABAN 10 MG TABLET PO SCH (17:45)
[2017-03-04] MEDS: CYCLOBENZAPRINE HCL 10 MG TABLET PO PRN (00:15)
[2017-03-04] MEDS: LEVALBUTEROL HCL NEB 1.25 MG/3 ML AMPUL NEB SCH ×4 (02:19→19:34)
[2017-03-04] MEDS: METHYLPREDNISOLONE INJ 125 MG/2 ML SDV IV SCH ×3 (05:59→22:06)
[2017-03-04 06:01] LABS: HEMATOCRIT 35.5 % (36.0-47.0); HGB HCT DIFFERENCE -1.3; MEAN CORPUSCULAR HEMOGLOBIN 32.5 pg (27.0-33.4); MEAN CORPUSCULAR HGB CONC 32.2 g/dL (32.0-36.0); MEAN CORPUSCULAR VOLUME 101 fl (80-97); RED BLOOD COUNT 3.53 10^6/uL (3.72-5.28); RED CELL DISTRIBUTION WIDTH 13.8 % (11.5-14.0)
[2017-03-04 06:03] LABS: HEMOGLOBIN 11.4 g/dL (12.0-15.5); WHITE BLOOD COUNT 12.9 10^3/uL (4.0-10.5)
[2017-03-04] MEDS: NORMAL SALINE 1000 ML 1,000 ML IV PRN (06:03)
[2017-03-04 06:09] LABS: ANION GAP 10 (5-19); BLOOD UREA NITROGEN 9 mg/dL (7-20); CALCIUM 9.4 mg/dL (8.4-10.2); CARBON DIOXIDE 22 mmol/L (22-30); CHLORIDE 111 mmol/L (98-107); CREATININE RESULT 0.78 mg/dL (0.52-1.25); GLUCOSE 169 mg/dL (75-110); POTASSIUM 4.1 mmol/L (3.6-5.0); SODIUM 142.9 mmol/L (137-145)
[2017-03-04 06:15] LABS: BASOPHILS % (MANUAL) 0 % (0-2); EOSINOPHILS % (MANUAL) 0 % (0-6); LYMPHOCYTES % (MANUAL) 9 % (13-45); TOTAL CELLS COUNTED 100
[2017-03-04 06:16] LABS: ROULEAUX SLIGHT; TOXIC GRANULATION 1+
[2017-03-04] MEDS: TIOTROPIUM BROMIDE DPI 5 CAP/KIT (18 MCG/CAP) IH SCH (09:52)
[2017-03-04] MEDS: FLUTICASONE NASAL SPRAY 50 MCG/SPRY 120 SPRAY/16 GM NASL SCH (09:53)
[2017-03-04] MEDS: LANSOPRAZOLE 30 MG TAB.RAP.DR PO SCH (09:53)
--- NOTE | 2017-03-04 16:02 | PDOC PROGRESS REPORT ---
Subjective Progress Note for:: 03/04/17 Subjective:: She was admitted for COPD acute exacerbation, seen by the bedside, still have shortness of breath Physical Exam Vital Signs: Temp Pulse Resp BP Pulse Ox 98.8 F 88 18 121/66 100 03/04/17 12:07 03/04/17 14:00 03/04/17 14:00 03/04/17 12:07 03/04/17 14:00 Intake & Output 03/03/17 03/04/17 03/05/17 06:59 06:59 06:59 Intake Total 615 2755 830 Output Total 3000 1200 Balance 028 -578 -673 Weight 60.7 kg General appearance: PRESENT: mild distress Eye exam: PRESENT: PERRLA Respiratory exam: PRESENT: wheezes Cardiovascular exam: PRESENT: +S1, +S2 GI/Abdominal exam: PRESENT: soft Neurological exam: PRESENT: alert, CN II-XII grossly intact Results Laboratory Results: 03/04/17 05:12 03/04/17 05:12 03/04/17 03/04/17 05:12 05:12 WBC 12.9 H D RBC 3.53 L Hgb 11.4 L D Hct 35.5 L MCV 101 H MCH 32.5 MCHC 32.2 RDW 13.8 Plt Count 273 Seg Neutrophils % Not Reportable Lymphocytes % Not Reportable Monocytes % Not Reportable Eosinophils % Not Reportable Basophils % Not Reportable Absolute Neutrophils Not Reportable Absolute Lymphocytes Not Reportable Absolute Monocytes Not Reportable Absolute Eosinophils Not Reportable Absolute Basophils Not Reportable Sodium 142.9 Potassium 4.1 Chloride 111 H Carbon Dioxide 22 Anion Gap 10 BUN 9 Creatinine 0.78 Est GFR ( Amer) > 60 Est GFR (Non-Af Amer) > 60 Glucose 169 H Calcium 9.4 Impressions: Chest X-Ray 03/02/17 08:12 IMPRESSION: COPD. NO ACUTE RADIOGRAPHIC FINDING IN THE CHEST. Assessment & Plan - Diagnosis (1) COPD exacerbation Is this a current diagnosis for this admission?: Yes (2) Cigarette smoker one half pack a day or less Is this a current diagnosis for this admission?: Yes (3) Respiratory distress Is this a current diagnosis for this admission?: Yes (4) SIRS (systemic inflammatory response syndrome) Is this a current diagnosis for this admission?: Yes (5) Status post bilateral mastectomy Is this a current diagnosis for this admission?: Yes - Plan Summary Plan Summary: She will continue present treatment
[2017-03-04] MEDS: LEVOFLOXACIN 500 MG/D5W RTU 500 MG/100 ML RTUPB IV SCH (18:16)
[2017-03-04] MEDS: RIVAROXABAN 10 MG TABLET PO SCH (18:17)
[2017-03-05] MEDS: CYCLOBENZAPRINE HCL 10 MG TABLET PO PRN (00:10)
[2017-03-05] MEDS: NORMAL SALINE 1000 ML 1,000 ML IV PRN (00:19)
[2017-03-05] MEDS: LEVALBUTEROL HCL NEB 1.25 MG/3 ML AMPUL NEB SCH ×4 (01:59→20:55)
[2017-03-05] MEDS: METHYLPREDNISOLONE INJ 125 MG/2 ML SDV IV SCH ×3 (05:38→21:25)
[2017-03-05] MEDS: FLUTICASONE NASAL SPRAY 50 MCG/SPRY 120 SPRAY/16 GM NASL SCH (10:39)
[2017-03-05] MEDS: LANSOPRAZOLE 30 MG TAB.RAP.DR PO SCH (10:39)
[2017-03-05] MEDS: TIOTROPIUM BROMIDE DPI 5 CAP/KIT (18 MCG/CAP) IH SCH (10:39)
--- NOTE | 2017-03-05 15:52 | PDOC PROGRESS REPORT ---
Subjective Progress Note for:: 03/05/17 Subjective:: Patient admitted for the management of COPD exacerbation, she was seen by the bedside she still wheezing she will continue on present regimen including Solu- Medrol, bronchodilators and antibiotic. Physical Exam Vital Signs: Temp Pulse Resp BP Pulse Ox 98.6 F 108 H 18 132/78 H 98 03/05/17 12:00 03/05/17 13:33 03/05/17 13:33 03/05/17 12:00 03/05/17 13:33 Intake & Output 03/04/17 03/05/17 03/06/17 06:59 06:59 06:59 Intake Total 2755 3530 750 Output Total 3000 2800 600 Balance -245 730 150 General appearance: PRESENT: no acute distress Eye exam: PRESENT: PERRLA Respiratory exam: PRESENT: wheezes Cardiovascular exam: PRESENT: +S1, +S2 GI/Abdominal exam: PRESENT: soft Neurological exam: PRESENT: alert Results Laboratory Results: 03/04/17 05:12 03/04/17 05:12 Impressions: Chest X-Ray 03/02/17 08:12 IMPRESSION: COPD. NO ACUTE RADIOGRAPHIC FINDING IN THE CHEST. Assessment & Plan - Diagnosis (1) COPD exacerbation Is this a current diagnosis for this admission?: Yes (2) Cigarette smoker one half pack a day or less Is this a current diagnosis for this admission?: Yes (3) Respiratory distress Is this a current diagnosis for this admission?: Yes (4) SIRS (systemic inflammatory response syndrome) Is this a current diagnosis for this admission?: Yes (5) Status post bilateral mastectomy Is this a current diagnosis for this admission?: Yes - Plan Summary Plan Summary: Continue IV antibiotic ,bronchodilators and Solu-Medrol
[2017-03-05] MEDS: LEVOFLOXACIN 500 MG/D5W RTU 500 MG/100 ML RTUPB IV SCH (17:22)
[2017-03-05] MEDS: RIVAROXABAN 10 MG TABLET PO SCH (17:22)
[2017-03-06] MEDS: LEVALBUTEROL HCL NEB 1.25 MG/3 ML AMPUL NEB SCH ×4 (02:15→19:22)
[2017-03-06] MEDS: METHYLPREDNISOLONE INJ 125 MG/2 ML SDV IV SCH ×3 (06:02→22:02)
--- NOTE | 2017-03-06 08:57 | PDOC PROGRESS REPORT ---
Subjective Progress Note for:: 03/06/17 Subjective:: Patient reported improvement in her breathing, left sided chest pain with coughing and less sputum production. There is burning sore throat. Muscle spasm is much better. No fever or chills. No nausea, vomiting, or abdominal pain. P.O intake limited due to her burning sore throat. Physical Exam Vital Signs: Temp Pulse Resp BP Pulse Ox 98.5 F 103 H 18 119/79 94 03/06/17 04:00 03/06/17 08:11 03/06/17 08:11 03/06/17 04:00 03/06/17 08:11 Intake & Output 03/05/17 03/06/17 03/07/17 06:59 06:59 06:59 Intake Total 3530 3361 Output Total 2800 600 Balance 730 2761 Weight 61.9 kg Physical Exam: General appearance: PRESENT: mild distress Head exam: PRESENT: atraumatic, normocephalic Eye exam: PRESENT: conjunctiva pink, EOMI, PERRLA. ABSENT: scleral icterus Mouth exam: PRESENT: moist Respiratory exam: PRESENT: minimal rhonchi - expiratory phase Cardiovascular exam: PRESENT: RRR. ABSENT: diastolic murmur, rubs, systolic murmur GI/Abdominal exam: PRESENT: normal bowel sounds, soft. ABSENT: distended, guarding, mass, organomegaly, rebound, tenderness Extremities exam: ABSENT: pedal edema Musculoskeletal exam: PRESENT: normal inspection Neurological exam: PRESENT: alert, awake, oriented to person, oriented to place , oriented to time, oriented to situation, CN II-XII grossly intact. ABSENT: motor sensory deficit Psychiatric exam: PRESENT: appropriate affect, normal mood. ABSENT: homicidal ideation, suicidal ideation Skin exam: PRESENT: dry, intact, warm. ABSENT: cyanosis, rash Results Laboratory Results: 03/04/17 05:12 03/04/17 05:12 Impressions: Chest X-Ray 03/02/17 08:12 IMPRESSION: COPD. NO ACUTE RADIOGRAPHIC FINDING IN THE CHEST. Assessment & Plan - Diagnosis (1) COPD exacerbation Is this a current diagnosis for this admission?: Yes (2) Cramps, muscle, general Is this a current diagnosis for this admission?: Yes (3) Cigarette smoker one half pack a day or less Is this a current diagnosis for this admission?: Yes (4) HLD (hyperlipidemia) Qualifiers: Hyperlipidemia type: unspecified Qualified Code(s): E78.5 - Hyperlipidemia , unspecified Is this a current diagnosis for this admission?: Yes (5) GERD (gastroesophageal reflux disease) Qualifiers: Esophagitis presence: without esophagitis Qualified Code(s): K21.9 - Gastro -esophageal reflux disease without esophagitis Is this a current diagnosis for this admission?: Yes (6) Depression Qualifiers: Depression Type: unspecified Qualified Code(s): F32.9 - Major depressive disorder, single episode, unspecified Is this a current diagnosis for this admission?: Yes - Time Time Spent with patient: 25-34 minutes Medications reviewed and adjusted accordingly: Yes Anticipated discharge: Home Within: Other - Inpatient Certification Based on my medical assessment, after consideration of the patient's comorbidities, presenting symptoms, or acuity I expect that the services needed warrant INPATIENT care.: Yes I certify that my determination is in accordance with my understanding of Medicare's requirements for reasonable and necessary INPATIENT services [42 CFR 412.3e].: Yes Medical Necessity: Need Close Monitoring Due to Risk of Patient Decompensation, Need For IV Fluids, Need For Continuous Telemetry Monitoring, Need for Nebulizer Therapy and Monitoring of Response, Need for IV Antibiotics, Risk of Complication if Not Cared For in Hospital Post Hospital Care: D/C Travel Registered Nurse Nicu Documentation - Plan Summary Plan Summary: Decrease IV Solu-Medrol to 80mg q8hrs, Start on Cepacol lozenges for sore throat. Obtain CBC with Diff, SMA12. Continue other current medication management. Encourage ambulation on the floor.
[2017-03-06] MEDS: TIOTROPIUM BROMIDE DPI 5 CAP/KIT (18 MCG/CAP) IH SCH (09:51)
[2017-03-06] MEDS: FLUTICASONE NASAL SPRAY 50 MCG/SPRY 120 SPRAY/16 GM NASL SCH (09:52)
[2017-03-06] MEDS: BENZOCAINE/MENTHOL SORE THROAT LOZENGE BUCCAL PRN (09:52)
[2017-03-06] MEDS: LANSOPRAZOLE 30 MG TAB.RAP.DR PO SCH (09:52)
[2017-03-06 10:50] LABS: ABSOLUTE LYMPHOCYTES (AUTO) 0.7 10^3/uL (0.5-4.7); ABSOLUTE MONOCYTES (AUTO) 0.4 10^3/uL (0.1-1.4); ABSOLUTE NEUT (AUTO) 8.1 10^3/uL (1.7-8.2); BASOPHILS % (AUTO) 0.2 % (0-2); LYMPHOCYTES % (AUTO) 7.9 % (13-45); MEAN CORPUSCULAR HEMOGLOBIN 32.4 pg (27.0-33.4); MEAN CORPUSCULAR HGB CONC 32.5 g/dL (32.0-36.0); MEAN CORPUSCULAR VOLUME 100 fl (80-97); MONOCYTES % (AUTO) 4.1 % (3-13); RED BLOOD COUNT 3.71 10^6/uL (3.72-5.28); RED CELL DISTRIBUTION WIDTH 13.5 % (11.5-14.0); SEGMENTED NEUTROPHILS % (AUTO) 87.8 % (42-78); WHITE BLOOD COUNT 9.2 10^3/uL (4.0-10.5)
[2017-03-06 11:22] LABS: ANION GAP 12 (5-19); BLOOD UREA NITROGEN 14 mg/dL (7-20); CALCIUM 9.2 mg/dL (8.4-10.2); CARBON DIOXIDE 26 mmol/L (22-30); CHLORIDE 102 mmol/L (98-107); CREATININE RESULT 0.74 mg/dL (0.52-1.25); GLUCOSE 169 mg/dL (75-110); POTASSIUM 3.4 mmol/L (3.6-5.0); SODIUM 139.9 mmol/L (137-145)
[2017-03-06] MEDS: RIVAROXABAN 10 MG TABLET PO SCH (17:58)
[2017-03-06] MEDS: NORMAL SALINE 1000 ML 1,000 ML IV PRN (17:58)
[2017-03-06] MEDS: LEVOFLOXACIN 500 MG TABLET PO SCH (17:59)
[2017-03-06] MEDS: CYCLOBENZAPRINE HCL 10 MG TABLET PO PRN (23:26)
[2017-03-07] MEDS: LEVALBUTEROL HCL NEB 1.25 MG/3 ML AMPUL NEB SCH ×2 (01:44→08:00)
[2017-03-07] MEDS: METHYLPREDNISOLONE INJ 125 MG/2 ML SDV IV SCH ×3 (06:35→21:43)
[2017-03-07] MEDS: NORMAL SALINE 1000 ML 1,000 ML IV PRN ×2 (06:35→21:42)
[2017-03-07] MEDS: LANSOPRAZOLE 30 MG TAB.RAP.DR PO SCH (06:35)
--- NOTE | 2017-03-07 08:36 | PDOC PROGRESS REPORT ---
Subjective Progress Note for:: 03/07/17 Subjective:: Patient reported continue improvement in her breathing. No chest pain. No fever or chills. No nausea, vomiting, or abdominal pain. Sore throat is improving. Physical Exam Vital Signs: Temp Pulse Resp BP Pulse Ox 99.0 F 94 16 116/79 100 03/07/17 03:16 03/07/17 03:16 03/07/17 03:16 03/07/17 03:16 03/07/17 03:16 Intake & Output 03/06/17 03/07/17 03/08/17 06:59 06:59 06:59 Intake Total 3361 3285 Output Total 600 1700 Balance 2761 1585 Weight 61.9 kg Physical Exam: General appearance: PRESENT: mild distress Head exam: PRESENT: atraumatic, normocephalic Eye exam: PRESENT: conjunctiva pink, EOMI, PERRLA. ABSENT: scleral icterus Mouth exam: PRESENT: moist Respiratory exam: PRESENT: minimal rhonchi - expiratory phase Cardiovascular exam: PRESENT: RRR. ABSENT: diastolic murmur, rubs, systolic murmur GI/Abdominal exam: PRESENT: normal bowel sounds, soft. ABSENT: distended, guarding, mass, organomegaly, rebound, tenderness Extremities exam: ABSENT: pedal edema Musculoskeletal exam: PRESENT: normal inspection Neurological exam: PRESENT: alert, awake, oriented to person, oriented to place , oriented to time, oriented to situation, CN II-XII grossly intact. ABSENT: motor sensory deficit Psychiatric exam: PRESENT: appropriate affect, normal mood. ABSENT: homicidal ideation, suicidal ideation Skin exam: PRESENT: dry, intact, warm. ABSENT: cyanosis, rash Results Laboratory Results: 03/06/17 10:40 03/06/17 10:40 03/06/17 03/06/17 10:40 10:40 WBC 9.2 RBC 3.71 L Hgb 12.0 Hct 37.0 MCV 100 H MCH 32.4 MCHC 32.5 RDW 13.5 Plt Count 270 Seg Neutrophils % 87.8 H Lymphocytes % 7.9 L Monocytes % 4.1 Eosinophils % 0.0 Basophils % 0.2 Absolute Neutrophils 8.1 Absolute Lymphocytes 0.7 Absolute Monocytes 0.4 Absolute Eosinophils 0.0 Absolute Basophils 0.0 Sodium 139.9 Potassium 3.4 L Chloride 102 Carbon Dioxide 26 Anion Gap 12 BUN 14 Creatinine 0.74 Est GFR ( Amer) > 60 Est GFR (Non-Af Amer) > 60 Glucose 169 H Calcium 9.2 Impressions: Chest X-Ray 03/02/17 08:12 IMPRESSION: COPD. NO ACUTE RADIOGRAPHIC FINDING IN THE CHEST. Assessment & Plan - Diagnosis (1) COPD exacerbation Is this a current diagnosis for this admission?: Yes (2) Cramps, muscle, general Is this a current diagnosis for this admission?: Yes (3) Cigarette smoker one half pack a day or less Is this a current diagnosis for this admission?: Yes (4) HLD (hyperlipidemia) Qualifiers: Hyperlipidemia type: unspecified Qualified Code(s): E78.5 - Hyperlipidemia , unspecified Is this a current diagnosis for this admission?: Yes (5) GERD (gastroesophageal reflux disease) Qualifiers: Esophagitis presence: without esophagitis Qualified Code(s): K21.9 - Gastro -esophageal reflux disease without esophagitis Is this a current diagnosis for this admission?: Yes (6) Depression Qualifiers: Depression Type: unspecified Qualified Code(s): F32.9 - Major depressive disorder, single episode, unspecified Is this a current diagnosis for this admission?: Yes - Time Time Spent with patient: 25-34 minutes Medications reviewed and adjusted accordingly: Yes Anticipated discharge: Home Within: Other - Inpatient Certification Based on my medical assessment, after consideration of the patient's comorbidities, presenting symptoms, or acuity I expect that the services needed warrant INPATIENT care.: Yes I certify that my determination is in accordance with my understanding of Medicare's requirements for reasonable and necessary INPATIENT services [42 CFR 412.3e].: Yes Medical Necessity: Need Close Monitoring Due to Risk of Patient Decompensation, Need For IV Fluids, Need For Continuous Telemetry Monitoring, Need for Nebulizer Therapy and Monitoring of Response, Risk of Complication if Not Cared For in Hospital 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 Change Xopenex to q6hrs prn, Potassium replacement in progress. Obtain Mag level. Repeat SMA7 in AM. Continue other current medication management
[2017-03-07] MEDS: TIOTROPIUM BROMIDE DPI 5 CAP/KIT (18 MCG/CAP) IH SCH (10:20)
[2017-03-07] MEDS: FLUTICASONE NASAL SPRAY 50 MCG/SPRY 120 SPRAY/16 GM NASL SCH (10:21)
[2017-03-07] MEDS: POTASSIUM CHLORIDE 10 MEQ TABLET.SA PO SCH ×2 (10:21→13:57)
[2017-03-07] MEDS: LEVALBUTEROL HCL NEB 1.25 MG/3 ML AMPUL NEB PRN (10:54)
[2017-03-07] MEDS: LEVOFLOXACIN 500 MG TABLET PO SCH (17:14)
[2017-03-07] MEDS: RIVAROXABAN 10 MG TABLET PO SCH (17:14)
[2017-03-08] MEDS: METHYLPREDNISOLONE INJ 125 MG/2 ML SDV IV SCH ×3 (06:07→21:54)
[2017-03-08] MEDS: LANSOPRAZOLE 30 MG TAB.RAP.DR PO SCH (06:07)
[2017-03-08] MEDS: BENZOCAINE/MENTHOL SORE THROAT LOZENGE BUCCAL PRN (06:09)
[2017-03-08] MEDS: LEVALBUTEROL HCL NEB 1.25 MG/3 ML AMPUL NEB PRN (07:58)
[2017-03-08] MEDS: FLUTICASONE NASAL SPRAY 50 MCG/SPRY 120 SPRAY/16 GM NASL SCH (10:40)
[2017-03-08] MEDS: TIOTROPIUM BROMIDE DPI 5 CAP/KIT (18 MCG/CAP) IH SCH (11:22)
[2017-03-08] MEDS: NORMAL SALINE 1000 ML 1,000 ML IV PRN (12:15)
[2017-03-08] MEDS: RIVAROXABAN 10 MG TABLET PO SCH (17:04)
[2017-03-08] MEDS: LEVOFLOXACIN 500 MG TABLET PO SCH (17:05)
--- NOTE | 2017-03-08 19:52 | PDOC PROGRESS REPORT ---
Subjective Progress Note for:: 03/08/17 Subjective:: Patient reported no chest pain. Improving breathing. No fever or chills. Patient reported concern about abdominal distension. She has been mouth breathing and feel that her difficulty is related to her distended abdomen. No nausea, vomiting, or abdominal pain. Physical Exam Vital Signs: Temp Pulse Resp BP Pulse Ox 98.6 F 81 18 114/66 92 03/08/17 15:36 03/08/17 15:36 03/08/17 15:36 03/08/17 15:36 03/08/17 15:36 Intake & Output 03/07/17 03/08/17 03/09/17 06:59 06:59 06:59 Intake Total 3285 4006 1830 Output Total 1700 2050 1500 Balance 1585 1956 330 Physical Exam: General appearance: PRESENT: mild distress Head exam: PRESENT: atraumatic, normocephalic Eye exam: PRESENT: conjunctiva pink, EOMI, PERRLA. ABSENT: scleral icterus Mouth exam: PRESENT: moist Respiratory exam: PRESENT: minimal rhonchi - expiratory phase Cardiovascular exam: PRESENT: RRR. ABSENT: diastolic murmur, rubs, systolic murmur GI/Abdominal exam: PRESENT: normal bowel sounds, soft. ABSENT: distended, guarding, mass, organomegaly, rebound, tenderness Extremities exam: ABSENT: pedal edema Musculoskeletal exam: PRESENT: normal inspection Neurological exam: PRESENT: alert, awake, oriented to person, oriented to place , oriented to time, oriented to situation, CN II-XII grossly intact. ABSENT: motor sensory deficit Psychiatric exam: PRESENT: appropriate affect, normal mood. ABSENT: homicidal ideation, suicidal ideation Skin exam: PRESENT: dry, intact, warm. ABSENT: cyanosis, rash Results Laboratory Results: 03/06/17 10:40 03/06/17 10:40 Impressions: Chest X-Ray 03/02/17 08:12 IMPRESSION: COPD. NO ACUTE RADIOGRAPHIC FINDING IN THE CHEST. Assessment & Plan - Diagnosis (1) COPD exacerbation Is this a current diagnosis for this admission?: Yes (2) Cramps, muscle, general Is this a current diagnosis for this admission?: Yes (3) Cigarette smoker one half pack a day or less Is this a current diagnosis for this admission?: Yes (4) HLD (hyperlipidemia) Qualifiers: Hyperlipidemia type: unspecified Qualified Code(s): E78.5 - Hyperlipidemia , unspecified Is this a current diagnosis for this admission?: Yes (5) GERD (gastroesophageal reflux disease) Qualifiers: Esophagitis presence: without esophagitis Qualified Code(s): K21.9 - Gastro -esophageal reflux disease without esophagitis Is this a current diagnosis for this admission?: Yes (6) Depression Qualifiers: Depression Type: unspecified Qualified Code(s): F32.9 - Major depressive disorder, single episode, unspecified Is this a current diagnosis for this admission?: Yes - Time Time Spent with patient: 25-34 minutes Medications reviewed and adjusted accordingly: Yes Anticipated discharge: Home - Inpatient Certification Based on my medical assessment, after consideration of the patient's comorbidities, presenting symptoms, or acuity I expect that the services needed warrant INPATIENT care.: Yes I certify that my determination is in accordance with my understanding of Medicare's requirements for reasonable and necessary INPATIENT services [42 CFR 412.3e].: Yes Medical Necessity: Need Close Monitoring Due to Risk of Patient Decompensation, Need For IV Fluids, Need For Continuous Telemetry Monitoring, Need for Nebulizer Therapy and Monitoring of Response, Need for IV Antibiotics, Risk of Complication if Not Cared For in Hospital 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
[2017-03-08] MEDS: SIMETHICONE 80 MG TAB.CHEW PO SCH (21:54)
[2017-03-09] MEDS: NORMAL SALINE 1000 ML 1,000 ML IV PRN ×2 (01:50→15:20)
[2017-03-09] MEDS: CYCLOBENZAPRINE HCL 10 MG TABLET PO PRN (01:51)
[2017-03-09 04:42] LABS: HEMATOCRIT 34.7 % (36.0-47.0); HEMOGLOBIN 11.6 g/dL (12.0-15.5); HGB HCT DIFFERENCE 0.1; MEAN CORPUSCULAR HEMOGLOBIN 32.8 pg (27.0-33.4); MEAN CORPUSCULAR HGB CONC 33.4 g/dL (32.0-36.0); MEAN CORPUSCULAR VOLUME 98 fl (80-97); RED BLOOD COUNT 3.53 10^6/uL (3.72-5.28); RED CELL DISTRIBUTION WIDTH 13.6 % (11.5-14.0); WHITE BLOOD COUNT 7.5 10^3/uL (4.0-10.5)
[2017-03-09 05:04] LABS: BASOPHILS % (MANUAL) 0 % (0-2); EOSINOPHILS % (MANUAL) 0 % (0-6); LYMPHOCYTES % (MANUAL) 7 % (13-45); TOTAL CELLS COUNTED 100; TOXIC GRANULATION SLIGHT; TOXIC VACUOLATION PRESENT
[2017-03-09 05:05] LABS: OVALOCYTES 1+; POIKILOCYTOSIS 2+; TARGET CELLS 1+; TEAR DROP CELLS 1+
[2017-03-09 05:06] LABS: ANION GAP 9 (5-19); BLOOD UREA NITROGEN 23 mg/dL (7-20); CALCIUM 8.7 mg/dL (8.4-10.2); CARBON DIOXIDE 25 mmol/L (22-30); CHLORIDE 103 mmol/L (98-107); CREATININE RESULT 0.83 mg/dL (0.52-1.25); GLUCOSE 123 mg/dL (75-110); POTASSIUM 4.2 mmol/L (3.6-5.0); SODIUM 136.9 mmol/L (137-145)
[2017-03-09] MEDS: METHYLPREDNISOLONE INJ 125 MG/2 ML SDV IV SCH (07:13)
[2017-03-09] MEDS: LANSOPRAZOLE 30 MG TAB.RAP.DR PO SCH (07:14)
[2017-03-09] MEDS: LEVALBUTEROL HCL NEB 1.25 MG/3 ML AMPUL NEB PRN (07:41)
--- NOTE | 2017-03-09 08:46 | PDOC PROGRESS REPORT ---
Subjective Progress Note for:: 03/09/17 Subjective:: Patient reported no chest pain. Improving breathing. Practice breathing in through her nose and out through her mouth as instructed. No fever or chills. Patient reported improvement in her abdominal distension. No nausea, vomiting, or abdominal pain. Physical Exam Vital Signs: Temp Pulse Resp BP Pulse Ox 98.8 F 83 18 113/80 100 03/09/17 07:40 03/09/17 07:41 03/09/17 07:41 03/09/17 07:40 03/09/17 07:41 Intake & Output 03/08/17 03/09/17 03/10/17 06:59 06:59 06:59 Intake Total 4006 3245 Output Total 2050 1500 Balance 1956 1745 Weight 63.8 kg Physical Exam: General appearance: PRESENT: mild distress Head exam: PRESENT: atraumatic, normocephalic Eye exam: PRESENT: conjunctiva pink, EOMI, PERRLA. ABSENT: scleral icterus Mouth exam: PRESENT: moist Respiratory exam: PRESENT: minimal rhonchi - expiratory phase Cardiovascular exam: PRESENT: RRR. ABSENT: diastolic murmur, rubs, systolic murmur GI/Abdominal exam: PRESENT: normal bowel sounds, soft. ABSENT: distended, guarding, mass, organomegaly, rebound, tenderness Extremities exam: ABSENT: pedal edema Musculoskeletal exam: PRESENT: normal inspection Neurological exam: PRESENT: alert, awake, oriented to person, oriented to place , oriented to time, oriented to situation, CN II-XII grossly intact. ABSENT: motor sensory deficit Psychiatric exam: PRESENT: appropriate affect, normal mood. ABSENT: homicidal ideation, suicidal ideation Skin exam: PRESENT: dry, intact, warm. ABSENT: cyanosis, rash Results Laboratory Results: 03/09/17 04:11 03/09/17 04:11 03/09/17 03/09/17 04:11 04:11 WBC 7.5 RBC 3.53 L Hgb 11.6 L Hct 34.7 L MCV 98 H MCH 32.8 MCHC 33.4 RDW 13.6 Plt Count 314 Seg Neutrophils % Not Reportable Lymphocytes % Not Reportable Monocytes % Not Reportable Eosinophils % Not Reportable Basophils % Not Reportable Absolute Neutrophils Not Reportable Absolute Lymphocytes Not Reportable Absolute Monocytes Not Reportable Absolute Eosinophils Not Reportable Absolute Basophils Not Reportable Sodium 136.9 L Potassium 4.2 Chloride 103 Carbon Dioxide 25 Anion Gap 9 BUN 23 H Creatinine 0.83 Est GFR ( Amer) > 60 Est GFR (Non-Af Amer) > 60 Glucose 123 H Calcium 8.7 Impressions: Chest X-Ray 03/02/17 08:12 IMPRESSION: COPD. NO ACUTE RADIOGRAPHIC FINDING IN THE CHEST. Assessment & Plan - Diagnosis (1) COPD exacerbation Is this a current diagnosis for this admission?: Yes (2) Cramps, muscle, general Is this a current diagnosis for this admission?: Yes (3) Cigarette smoker one half pack a day or less Is this a current diagnosis for this admission?: Yes (4) HLD (hyperlipidemia) Qualifiers: Hyperlipidemia type: unspecified Qualified Code(s): E78.5 - Hyperlipidemia , unspecified Is this a current diagnosis for this admission?: Yes (5) GERD (gastroesophageal reflux disease) Qualifiers: Esophagitis presence: without esophagitis Qualified Code(s): K21.9 - Gastro -esophageal reflux disease without esophagitis Is this a current diagnosis for this admission?: Yes (6) Depression Qualifiers: Depression Type: unspecified Qualified Code(s): F32.9 - Major depressive disorder, single episode, unspecified Is this a current diagnosis for this admission?: Yes - Time Time Spent with patient: 25-34 minutes Medications reviewed and adjusted accordingly: Yes Anticipated discharge: Home Within: Other - Inpatient Certification Based on my medical assessment, after consideration of the patient's comorbidities, presenting symptoms, or acuity I expect that the services needed warrant INPATIENT care.: Yes I certify that my determination is in accordance with my understanding of Medicare's requirements for reasonable and necessary INPATIENT services [42 CFR 412.3e].: Yes Medical Necessity: Need Close Monitoring Due to Risk of Patient Decompensation, Need For IV Fluids, Need For Continuous Telemetry Monitoring, Need for Nebulizer Therapy and Monitoring of Response, Risk of Complication if Not Cared For in Hospital 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 Start on Medrol 20 mg po bid. Maintain on all other current medication management. I did discusses with her possible d/c home tomorrow if she continue to improve.
[2017-03-09] MEDS: FLUTICASONE NASAL SPRAY 50 MCG/SPRY 120 SPRAY/16 GM NASL SCH (10:47)
[2017-03-09] MEDS: TIOTROPIUM BROMIDE DPI 5 CAP/KIT (18 MCG/CAP) IH SCH (10:47)
[2017-03-09] MEDS: SIMETHICONE 80 MG TAB.CHEW PO SCH ×4 (10:48→22:48)
[2017-03-09] MEDS: METHYLPREDNISOLONE 4 MG TABLET PO SCH ×2 (10:53→17:20)
[2017-03-09] MEDS: LEVOFLOXACIN 500 MG TABLET PO SCH (17:19)
[2017-03-09] MEDS: RIVAROXABAN 10 MG TABLET PO SCH (17:19)
[2017-03-10] MEDS: LANSOPRAZOLE 30 MG TAB.RAP.DR PO SCH (06:51)
[2017-03-10] MEDS: NORMAL SALINE 1000 ML 1,000 ML IV PRN (07:58)
[2017-03-10] MEDS: FLUTICASONE NASAL SPRAY 50 MCG/SPRY 120 SPRAY/16 GM NASL SCH (11:06)
[2017-03-10] MEDS: SIMETHICONE 80 MG TAB.CHEW PO SCH ×3 (11:07→18:08)
[2017-03-10] MEDS: TIOTROPIUM BROMIDE DPI 5 CAP/KIT (18 MCG/CAP) IH SCH (11:09)
[2017-03-10] MEDS: METHYLPREDNISOLONE 4 MG TABLET PO SCH ×2 (11:10→18:07)
[2017-03-10] MEDS ORDERED: FLUCONAZOLE 100 MG TABLET PO ONE (16:30)
[2017-03-10 16:31] VITALS: BP 120/79
--- NOTE | 2017-03-10 16:41 | PDOC DISCHARGE SUMMARY ---
General - Admit/Disc Date/PCP Admission Date/Primary Care Provider: 03/02/17 13:13 LUKASZMARGO ORNELAS Discharge Date: 03/10/17 - Discharge Diagnosis (1) COPD exacerbation Is this a current diagnosis for this admission?: Yes (2) Cramps, muscle, general Is this a current diagnosis for this admission?: Yes (3) Cigarette smoker one half pack a day or less Is this a current diagnosis for this admission?: Yes (4) HLD (hyperlipidemia) Is this a current diagnosis for this admission?: Yes (5) GERD (gastroesophageal reflux disease) Is this a current diagnosis for this admission?: Yes (6) Depression Is this a current diagnosis for this admission?: Yes - Additional Information Resuscitation Status: Full Code Home Medications: Budesonide/Formoterol Fumarate [Symbicort HFA 160-4.5 mcg Inhaler 6 gm] 1 spray IN Q12 03/02/17 Fluticasone Propionate [Flonase Nasal Rogers 50 Mcg/Rogers 16 gm] 1 spray NASL DAILY 03/02/17 Ipratropium [place] [Atrovent 0.06% Nasal Rogers] 1 spray NASL Q2D 03/02/17 Lansoprazole [Prevacid] 300 mg PO DAILY 03/02/17 Levalbuterol Tartrate [Xopenex Hfa] 1 puff IH Q4HP PRN 03/02/17 Megestrol Acetate 400 mg PO DAILY 03/02/17 Rivaroxaban [Xarelto] 20 mg PO WSUPPER 03/02/17 Tiotropium [place] [Spiriva Handihaler 5 Cap/Kit (18 Mcg/Cap)] 1 puff IH DAILY 03/02/17 Benzocaine/Menthol [Chloraseptic Sore Throat Lozenge] 1 each BUCCAL Q4HP PRN # 20 lozenge 03/10/17 Benzonatate [Tessalon Perles 100 mg Capsule] 100 mg PO Q8HP PRN #40 capsule Methylprednisolone [Medrol 4 mg Tablet] 20 mg PO ASDIR PRN #80 tablet 03/10/17 Simethicone [Mylicon 80 mg Chewable Tablet] 120 mg PO QID #30 tab.chew 03/10/17 History of Present Illness History of Present Illness: ARIELLA JUAREZ is a 51 year old female known to my practice who presented to the ED with complain of worsening difficulty with breathing over last 2 weeks. She was in demonstrable respiratory difficulty at the time of her presentation with use of accessory muscles and audible wheezing necessitating administration of Decadron and magnesium IV in the ED along with several bronchodilators therapy. Despite her initial treatment she continue to demonstrate persistent difficulty with breathing and she was advised hospitalization. She has history of COPD and continue to smoke cigarette. She reported associated coughing with ting of blood streaks in the sputum. There is associated chest discomfort that she localized to left chest region and attributed to muscle spasm. She claimed worsening muscle spasm in recent time with significant intensity. She denied definite fever but admitted to chills. No headache, dizziness or vertigo. Her morbidities include Hyperlipidemia, Asthma, COPD, CVA with minimal left sided weakness, GERD, Hiatus Hernia, Depression, Breast cancer s/p bilateral mastectomies, and Ovarian Cysts. Hospital Course Hospital Course: Patient did respond to IV Slou-Medrol and bronchodilators nebulizer therapy. In view of her presenting symptoms she was treated with IV Levofloxacin which was eventually change to oral route and discontinued at discharge due to no associated fever or significant leukocytosis. Patient did complain about yeast vaginitis symptoms and requested for Diflucan therapy. She will receive a dose of Diflucan 150 mg po x 1 dose prior to discharge. She will remain on tapering dose of Methylprednisolone over the next 10 days. she will follow up in the office as instructed upon discharge. Physical Exam Vital Signs: Temp Pulse Resp BP Pulse Ox 98.6 F 90 16 108/54 L 98 03/10/17 11:50 03/10/17 14:00 03/10/17 13:49 03/10/17 11:50 03/10/17 13:49 Intake & Output 03/09/17 03/10/17 03/11/17 06:59 06:59 06:59 Intake Total 3245 4195 Output Total 1500 2200 Balance 1745 1994 Weight 63.8 kg Physical Exam: General appearance: PRESENT: mild distress Head exam: PRESENT: atraumatic, normocephalic Eye exam: PRESENT: conjunctiva pink, EOMI, PERRLA. ABSENT: scleral icterus Mouth exam: PRESENT: moist Respiratory exam: PRESENT: minimal rhonchi - expiratory phase Cardiovascular exam: PRESENT: RRR. ABSENT: diastolic murmur, rubs, systolic murmur GI/Abdominal exam: PRESENT: normal bowel sounds, soft. ABSENT: distended, guarding, mass, organomegaly, rebound, tenderness Extremities exam: ABSENT: pedal edema Musculoskeletal exam: PRESENT: normal inspection Neurological exam: PRESENT: alert, awake, oriented to person, oriented to place , oriented to time, oriented to situation, CN II-XII grossly intact. ABSENT: motor sensory deficit Psychiatric exam: PRESENT: appropriate affect, normal mood. ABSENT: homicidal ideation, suicidal ideation Skin exam: PRESENT: dry, intact, warm. Perineal rash. ABSENT: cyanosis Results Laboratory Results: 03/09/17 04:11 03/09/17 04:11 Impressions: Chest X-Ray 03/02/17 08:12 IMPRESSION: COPD. NO ACUTE RADIOGRAPHIC FINDING IN THE CHEST. Qualifiers PATEINT BEING DISCHARGED WITH ANY OF THE FOLLOWING DIAGNOSIS?: No Plan Discharge Plan: D/C home today. Follow up in the office as instructed upon discharge. I had extensive discussion with patient during my bedside consultation regarding smoking cessation counseling and post discharge care plan. She did expressed remorse for continue smoking and will look into cessation plan upon follow up in the office. Commitment remain not certain. Time Spent: Greater than 30 Minutes - More than 50% of my discharge bedside consultation and care plan was spent in smoking cessation counseling with the patient. There is continued uncertainity with her commitment to smoking cessation which will result in her frequent readmission to the hospital.
[2017-03-10] MEDS: RIVAROXABAN 10 MG TABLET PO SCH (18:08)
== END 2017-03-10 17:46 | disposition home or self-care (01) | DRG 191 ==
LOC: ER 07:50 → EH 10:38 → 5 12:10 → OBSVTOIN 13:13
PROVIDERS: ADMIT Internal Medicine Geriatric Medicine; ATTEND Internal Medicine Geriatric Medicine
DX: J44.1 Chronic obstructive pulmonary disease with (acute) exacerbation (principal); I69.354 Hemiplegia and hemiparesis following cerebral infarction affecting left non-dominant side; R25.2 Cramp and spasm; E78.5 Hyperlipidemia, unspecified; K21.9 Gastro-esophageal reflux disease without esophagitis; K44.9 Diaphragmatic hernia without obstruction or gangrene; F32.9 Major depressive disorder, single episode, unspecified; Z79.899 Other long term (current) drug therapy; Z85.3 Personal history of malignant neoplasm of breast; Z90.13 Acquired absence of bilateral breasts and nipples; F17.210 Nicotine dependence, cigarettes, uncomplicated; Z88.8 Allergy status to other drugs, medicaments and biological substances
CPT/HCPCS: 36415; 71010; 80048; 80053; 83735; 84484; 85025; 94640; 96365; 96375; 99285; J1100; J1956; J2930; J3475; J3490; J7030; J7509; J7620

== ENCOUNTER → 2017-07-23 | Outpatient (CLI) | payer MEDICARE, OTHER ==
--- NOTE | 2017-07-24 09:37 | RADIOLOGY REPORT (SQ) ---
EXAM DESCRIPTION: PET CT SKULL/THIGH COMPLETED DATE/TIME: 07/23/2017 6:51 pm REASON FOR STUDY: LUNG NODULE R91.1 SOLITARY PULMONARY NODULE COMPARISON: None. RADIONUCLIDE AND DOSE: 9.9 mCi F18 FDG The route of agent administration: Intravenous FASTING BLOOD SUGAR: 82 mg/dl CONTRAST TYPE AND DOSE: No CT contrast given. TECHNIQUE: Blood glucose level was verified. Above dose of FDG was injected intravenously. 2-D seg mented attenuation correction images were obtained from the base of the skull to the midthighs. Nonc ontrast CT images were obtained for attenuation correction and fusion with emission images. CT image s were performed without oral or intravenous contrast and are not sensitive for parenchymal lesions. A series of overlapping emission PET images were obtained. Images reviewed and manipulated at [facility] work station by the radiologist. Images stored on PACS. LIMITATIONS: None. FINDINGS: HEAD AND NECK: No areas of abnormal metabolic activity in the soft tissues of the head and neck. CHEST: No areas of abnormal metabolic activity in the chest. ABDOMEN AND PELVIS: No areas of abnormal metabolic activity in the abdomen or pelvis. Expected physi ologic activity is present in the genitourinary system and bowel. PROXIMAL LOWER EXTREMITIES: No areas of abnormal metabolic activity in the soft tissues of the lower extremities. BONES: No abnormal metabolic activity in the visualized skeleton. ADDITIONAL CT FINDINGS: Subcentimeter pleural based nodule posterior right upper lobe stable since 2015. OTHER: No other significant findings. IMPRESSION: No hypermetabolic lesions identified. TECHNICAL DOCUMENTATION: JOB ID: [id number] [employer]- All Rights Reserved
== END ==
LOC: RAD 15:56
PROVIDERS: ATTEND Internal Medicine Medical Oncology
DX: R91.1 Solitary pulmonary nodule (principal)
CPT/HCPCS: 78815; A9552

== ENCOUNTER 2017-10-26 21:55 | Emergency (ER) | payer MEDICARE, MEDICAID ==
[2017-10-26] MEDS ORDERED: IPRATROPIUM/ALBUTEROL 0.5-2.5 MG/3 ML AMPUL NEB ONE (22:44)
[2017-10-26] MEDS ORDERED: DEXAMETHASONE 4 MG TABLET PO ONE (22:44)
[2017-10-26] MEDS ORDERED: HYDROXYZINE PAMOATE 50 MG CAPSULE PO ONE (22:45)
--- NOTE | 2017-10-26 22:51 | ER Document Report ---
ED Allergic Reaction - General Chief Complaint: Allergic Reaction Stated Complaint: POSSIBLE ALLERGIC REACTION/DIFFICULTY BREATHING Notes: The patient is a 52-year-old female, past medical history chronic bronchitis, presents with 2 days of diffuse pruritic urticarial rash. She is also noticing mild wheezing and a productive yellow cough. She took Benadryl 1 hour prior to arrival, but she is still actively itching in the emergency room. She denies new medications, new soaps, new foods or new detergents. She denies difficulty swallowing, tongue swelling, stridor, nausea, vomiting, back pain or chest pain. TRAVEL OUTSIDE OF THE [place] IN LAST 30 DAYS: No - Related Data Allergies/Adverse Reactions: prednisone [Prednisone] Adverse Reaction (Intermediate, Verified 03/02/17 07:59) Past Medical History - General Information source: Patient - Social History Smoking Status: Current Some Day Smoker Chew tobacco use (# tins/day): No Frequency of alcohol use: None Drug Abuse: None Family History: Reviewed & Not Pertinent Patient has suicidal ideation: No Patient has homicidal ideation: No - Past Medical History Cardiac Medical History: Reports: Hx Hypercholesterolemia Denies: Hx Coronary Artery Disease, Hx Heart Attack, Hx Hypertension Pulmonary Medical History: Reports: Hx Asthma, Hx COPD, Hx Pneumonia Denies: Hx Bronchitis, Hx Respiratory Failure, Hx Sleep Apnea, Hx Tuberculosis Neurological Medical History: Reports: Hx Cerebrovascular Accident - WEAKNESS ON LEFT SIDE. Denies: Hx Seizures Endocrine Medical History: Renal/ Medical History: Reports: Hx Ovarian Cysts. Denies: Hx Peritoneal Dialysis Malignancy Medical History: Reports: Hx Breast Cancer GI Medical History: Reports: Hx Gastroesophageal Reflux Disease, Hx Hiatal Hernia Musculoskeltal Medical History: Denies Hx Arthritis, Denies Hx Multiple Sclerosis Psychiatric Medical History: Reports: Hx Depression Denies: Hx Dementia Infectious Medical History: Past Surgical History: Reports: Hx Mastectomy - bilat 2010. Denies: Hx Hysterectomy, Hx Pacemaker - Immunizations Hx Diphtheria, Pertussis, Tetanus Vaccination: No Hx Pneumococcal Vaccination: 06/26/11 Review of Systems - Review of Systems Notes: REVIEW OF SYSTEMS: CONSTITUTIONAL: -fevers, -chills EENT: -eye pain, -difficulty swallowing, -nasal congestion CARDIOVASCULAR: -chest pain, -syncope. RESPIRATORY: +cough, +SOB GASTROINTESTINAL: -abdominal pain, -nausea, -vomiting, -diarrhea GENITOURINARY: -dysuria, -hematuria MUSCULOSKELETAL: -back pain, -neck pain SKIN: +urticarial rash HEMATOLOGIC: -easy bruising or bleeding. LYMPHATIC: -swollen, enlarged glands. NEUROLOGICAL: -altered mental status or loss of consciousness, -headache, - neurologic symptoms PSYCHIATRIC: -anxiety, -depression. ALL OTHER SYSTEMS REVIEWED AND NEGATIVE. Physical Exam - Vital signs Vitals: Temp Pulse Resp BP Pulse Ox 99.7 F 112 H 18 144/88 H 100 10/26/17 21:56 10/26/17 21:56 10/26/17 21:56 10/26/17 21:56 10/26/17 21:56 - Notes Notes: PHYSICAL EXAMINATION: GENERAL: Well-appearing, well-nourished and in no acute distress. Actively itching her arms and chest. HEAD: Atraumatic, normocephalic. EYES: Pupils equal round and reactive to light, extraocular movements intact, sclera anicteric, conjunctiva are normal. ENT: nares patent, oropharynx clear without exudates. Moist mucous membranes. No swelling in oropharynx. NECK: Normal range of motion, supple without lymphadenopathy LUNGS: No respiratory distress, mild end-expiratory wheezes. HEART: Mild tachycardia. ABDOMEN: Soft, nontender, normoactive bowel sounds. No guarding, no rebound. No masses appreciated. EXTREMITIES: Normal range of motion, no pitting or edema. No cyanosis. NEUROLOGICAL: Cranial nerves grossly intact. Normal speech, normal gait. Normal sensory and motor exams. PSYCH: Normal mood, normal affect. SKIN: Diffuse pruritic urticarial lesions. Course - Re-evaluation Re-evalutation: Patient with diffuse urticarial rash. Will provide her with Decadron and Vistaril to help with her symptoms. She also has mild end-expiratory wheezing, but she says that this is common for her due to her chronic bronchitis. She does not appear to be in anaphylaxis and not having anaphylactic shock. Will hold off on epi at this time. Will send her home with a Medrol Dosepak and instructions to continue Vistaril or Benadryl for any itchiness. Given very strict return precautions, especially about anaphylaxis and she understands. - Vital Signs Vital signs: Temp Pulse Resp BP Pulse Ox 99.7 F 112 H 18 144/88 H 100 10/26/17 21:56 10/26/17 21:56 10/26/17 21:56 10/26/17 21:56 10/26/17 21:56 Discharge - Discharge Clinical Impression: Urticarial rash Allergic reaction Qualifiers: Encounter type: initial encounter Qualified Code(s): T78.40XA - Allergy, unspecified, initial encounter Condition: Stable Disposition: HOME, SELF-CARE Additional Instructions: ACUTE ALLERGIC REACTION: Your symptoms are due to an allergic reaction. Allergy can cause hives, swelling of the hands, feet, and face, hoarseness, and difficulty swallowing or breathing. It may be due to exposure to medication, animal dander, foods, infection, or insect bites. Medication is a common cause, even when prior use of this same medication caused no problems. Acute treatment may include adrenalin and antihistamines. Usually, the specific allergic agent can't be identified unless repeated episodes occur. Home treatment includes the following: (1) Stop any suspicious medications. This will be discussed with you. (2) Oral antihistamines for the next four to five days. Example, diphenhydramine (Benadryl) every four hours. (3) You may also use cimetidine (Tagamet), ranitidine (Zantac), or famotidine ( Pepcid) every four hours if diphenhydramine is not controlling itching and hives. (4) Avoid aspirin until the hives completely disappear. (5) Avoid hot baths or showers until the hives are completely gone. Call the doctor if faintness, difficulty swallowing, tightness in the chest , or wheezing occurs. STEROID MEDICATION: You have been given a medicine of the cortisone/steroid class. This medication is used to control inflammation or allergy. It is usually only given for a short period of time, until the acute process subsides. There are usually no side effects from short-term use of cortisone-like medications. Some persons feel an increased sense of well-being and are not sleepy at bedtime. Long-term use of cortisone medications is best avoided, unless required for a severe condition. If your condition does not remit, or relapses after the course of corticosteroid medication, you should consult your physician. ANTIHISTAMINES: An antihistamine has been given and/or prescribed to control your symptoms. Antihistamines are used for many reasons, including itching, watering eyes, runny nose, allergic swelling, hives, and insect stings. Antihistamines may cause drowsiness, especially with the first dose. Do not operate machinery or drive while under the effects of the medication. Other common side effects include dry mouth and eyes. In older persons, antihistamines can occasionally cause urinary retention, constipation, and trouble focusing the eyes. Do not combine the medication with alcohol, or with any other medication without talking to your doctor. USE OF DIPHENHYDRAMINE: The use of diphenhydramine (Benadryl) has been recommended to control allergic symptoms. The 25 mg strength is available over- the-counter, as well as the elixir. This antihistamine is used for many symptoms. It's useful for itching, watering eyes and nose, allergic swelling, hives, and insect stings. The medication can be repeated four times daily. Age Elixir (12.5 mg/tsp) 25 mg pill 2-3 yr 1/2 tsp 4-8 yr 1 tsp 9-14 yr 2 tsp one tab adult 1-2 tabs Antihistamines may cause drowsiness, especially with the first dose. Do not operate machinery or drive while under the effects of the medication. Do not combine the medication with alcohol, or with any other medication without talking to your doctor. FOLLOW-UP CARE: If you have been referred to a physician for follow-up care, call the physician s office for an appointment as you were instructed or within the next two days. If you experience worsening or a significant change in your symptoms, notify the physician immediately or return to the Emergency Department at any time for re-evaluation. Prescriptions: Albuterol Sulfate [Proair HFA Inhalation Aerosol 8.5 gm MDI] 2 puff IH Q4H PRN # 1 mdi PRN Reason: Epinephrine [Epipen 2-Terrance] 0.3 mg IM ONCE PRN #2 unit PRN Reason: Hydroxyzine Pamoate [Vistaril] 25 mg PO Q6H PRN #15 capsule PRN Reason: Methylprednisolone [Medrol Dosepack (4 mg/Tab) 21 Tab/Dosepak] 4 mg PO ASDIR PRN #21 tab.ds.pk PRN Reason: Forms: Elevated Blood Pressure Referrals: LUKASZ ORNELAS MD [ACTIVE STAFF] - Follow up as needed
[2017-10-26 23:18] VITALS: BP 125/78
== END 2017-10-26 23:16 | disposition home or self-care (01) ==
LOC: ER 21:55
DX: L50.9 Urticaria, unspecified (principal); T78.40XA Allergy, unspecified, initial encounter; X58.XXXA Exposure to other specified factors, initial encounter; I69.954 Hemiplegia and hemiparesis following unspecified cerebrovascular disease affecting left non-dominant side; F17.200 Nicotine dependence, unspecified, uncomplicated; E78.00 Pure hypercholesterolemia, unspecified; J44.9 Chronic obstructive pulmonary disease, unspecified
CPT/HCPCS: 94640; 99283; A9270 ×3; J7620

== ENCOUNTER 2017-11-21 08:52 | Inpatient (IN) | payer MEDICARE, MEDICAID ==
[2017-11-21] MEDS ORDERED: METHYLPREDNISOLONE INJ 125 MG/2 ML SDV IV ONE (09:48)
[2017-11-21] MEDS ORDERED: FUROSEMIDE INJ/PF 20 MG/2 ML SDV IV ONE (09:49)
[2017-11-21] MEDS ORDERED: IPRATROPIUM/ALBUTEROL 0.5-2.5 MG/3 ML AMPUL NEB ONE (09:49)
--- NOTE | 2017-11-21 09:52 | ER Document Report ---
ED Medical Screen (RME) - General Chief Complaint: Breathing Difficulty Stated Complaint: DIFFICULTY BREATHING Time Seen by Provider: 11/21/17 09:43 Notes: 52 years old female with a history of COPD and CHF presents today with nearly 1 week history of progressive increasing shortness of breath, coughing and coughing leading to right-sided chest pain particularly on movement as well as coughing. Having exertional shortness of breath. Denies any fever chills but coughing which is productive with yellow sputum. No fever chills or other constitutional symptoms. She is a current smoker I have greeted and performed a rapid initial assessment of this patient. A comprehensive ED assessment and evaluation of the patient, analysis of test results and completion of the medical decision making process will be conducted by additional ED providers. PHYSICAL EXAMINATION: GENERAL: Mild to moderate acute distress. HEAD: Atraumatic, normocephalic. EYES: Pupils equal round extraocular movements intact, conjunctiva are normal. ENT: Nares patent NECK: Normal range of motion LUNGS: Bilateral diffuse expiratory wheezing. With some inspiratory wheezing 2. Musculoskeletal: Normal range of motion NEUROLOGICAL: Normal speech, normal gait. No edema noted over the ankle PSYCH: Normal mood, normal affect. SKIN: Warm, Dry, normal turgor, no rashes or lesions noted. TRAVEL OUTSIDE OF THE [place] IN LAST 30 DAYS: No - Related Data Allergies/Adverse Reactions: prednisone [Prednisone] Adverse Reaction (Intermediate, Verified 03/02/17 07:59) Past Medical History - Social History Chew tobacco use (# tins/day): No Frequency of alcohol use: None Drug Abuse: None - Past Medical History Cardiac Medical History: Reports: Hx Hypercholesterolemia Denies: Hx Coronary Artery Disease, Hx Heart Attack, Hx Hypertension Pulmonary Medical History: Reports: Hx Asthma, Hx COPD, Hx Pneumonia Denies: Hx Bronchitis, Hx Respiratory Failure, Hx Sleep Apnea, Hx Tuberculosis Neurological Medical History: Reports: Hx Cerebrovascular Accident - WEAKNESS ON LEFT SIDE. Denies: Hx Seizures Endocrine Medical History: Renal/ Medical History: Reports: Hx Ovarian Cysts. Denies: Hx Peritoneal Dialysis Malignancy Medical History: Reports: Hx Breast Cancer GI Medical History: Reports: Hx Gastroesophageal Reflux Disease, Hx Hiatal Hernia Musculoskeltal Medical History: Denies Hx Arthritis, Denies Hx Multiple Sclerosis Psychiatric Medical History: Reports: Hx Depression Denies: Hx Dementia Infectious Medical History: Past Surgical History: Reports: Hx Mastectomy - bilat 2010. Denies: Hx Hysterectomy, Hx Pacemaker - Immunizations Hx Diphtheria, Pertussis, Tetanus Vaccination: No Physical Exam - Vital signs Vitals: Temp Pulse Resp BP Pulse Ox 98.9 F 111 H 22 H 121/76 100 11/21/17 08:56 11/21/17 08:56 11/21/17 08:56 11/21/17 08:56 11/21/17 08:56 Course - Vital Signs Vital signs: Temp Pulse Resp BP Pulse Ox 98.9 F 111 H 22 H 121/76 100 11/21/17 08:56 11/21/17 08:56 11/21/17 08:56 11/21/17 08:56 11/21/17 08:56 - EKG Interpretation by [facility] EKG shows normal: Sinus rhythm, [place] Rate: Normal - Sinus rhythm at 93 bpm normal axis no acute ST elevation ST depression T-wave inversion. Normal cardiogram.
[2017-11-21 10:54] LABS: ABSOLUTE EOSINOPHILS # (AUTO) 0.2 10^3/uL (0.0-0.6); ABSOLUTE LYMPHOCYTES (AUTO) 2.3 10^3/uL (0.5-4.7); ABSOLUTE MONOCYTES (AUTO) 0.7 10^3/uL (0.1-1.4); ABSOLUTE NEUT (AUTO) 3.8 10^3/uL (1.7-8.2); BASOPHILS % (AUTO) 0.7 % (0-2); HEMATOCRIT 37.4 % (36.0-47.0); HEMOGLOBIN 12.2 g/dL (12.0-15.5); LYMPHOCYTES % (AUTO) 32.4 % (13-45); MEAN CORPUSCULAR HGB CONC 32.7 g/dL (32.0-36.0); MEAN CORPUSCULAR VOLUME 98 fl (80-97); MONOCYTES % (AUTO) 9.4 % (3-13); PLATELET COUNT 339 10^3/uL (150-450); RED BLOOD COUNT 3.82 10^6/uL (3.72-5.28); RED CELL DISTRIBUTION WIDTH 14.4 % (11.5-14.0); SEGMENTED NEUTROPHILS % (AUTO) 54.5 % (42-78); TOTAL CELLS COUNTED % (AUTO) 100 %
[2017-11-21] MEDS: MAGNESIUM SULFATE/D5W 1 GM/100 ML RTUPB IV SCH ×2 (11:09→11:45)
[2017-11-21] MEDS ORDERED: NORMAL SALINE 1000 ML 1,000 ML IV ONE ×2 (11:16→14:19)
[2017-11-21] MEDS ORDERED: RACEPINEPHRINE HCL 2.25% NEB 0.5 ML AMPUL NEB ONE (11:16)
[2017-11-21 11:18] LABS: ALANINE AMINOTRANSFERASE 19 U/L (9-52); ALBUMIN 3.8 g/dL (3.5-5.0); ALKALINE PHOSPHATASE 41 U/L (38-126); ANION GAP 11 (5-19); ASPARTATE AMINO TRANSFERASE 15 U/L (14-36); BILIRUBIN,DIRECT 0.3 mg/dL (0.0-0.4); BILIRUBIN,TOTAL 0.5 mg/dL (0.2-1.3); BLOOD UREA NITROGEN 6 mg/dL (7-20); CALCIUM 9.7 mg/dL (8.4-10.2); CARBON DIOXIDE 24 mmol/L (22-30); CHLORIDE 112 mmol/L (98-107); CREATINE KINASE 79 U/L (30-135); GLUCOSE 79 mg/dL (75-110); SODIUM 147.1 mmol/L (137-145); TOTAL PROTEIN 6.8 g/dL (6.3-8.2)
--- NOTE | 2017-11-21 11:18 | ER Document Report ---
ED General - General Mode of Arrival: Medic Information source: Patient TRAVEL OUTSIDE OF THE [place] IN LAST 30 DAYS: No <MIGUEL VASQUEZ - Last Filed: 11/21/17 11:23> <ELIZA DAVIS - Last Filed: 11/21/17 14:26> - General Chief Complaint: Breathing Difficulty Stated Complaint: DIFFICULTY BREATHING Time Seen by Provider: 11/21/17 09:43 Notes: 52 y.o female with a PMHx of chronic bronchitis, asthma, COPD, breast cancer and GERD presents to the ED with difficulty breathing. Pt was here about 4 weeks ago for similar sx and was sent home with Rx for inhaler and steroids. Pt reports a wheezing for the past 2 weeks and reports a "gurgling" feeling in her chest along with chest tightness. She reports seeing another doctor about 2 weeks ago and taking an antibiotic but is without much relief. (MIGUEL VASQUEZ ) - Related Data Allergies/Adverse Reactions: prednisone [Prednisone] Adverse Reaction (Intermediate, Verified 03/02/17 07:59) Past Medical History - General Information source: Patient - Social History Smoking Status: Current Some Day Smoker Chew tobacco use (# tins/day): No Frequency of alcohol use: Rare Drug Abuse: None Family History: Reviewed & Not Pertinent Patient has suicidal ideation: No Patient has homicidal ideation: No - Past Medical History Cardiac Medical History: Reports: Hx Hypercholesterolemia Pulmonary Medical History: Reports: Hx Asthma, Hx Bronchitis, Hx COPD, Hx Pneumonia Neurological Medical History: Reports: Hx Cerebrovascular Accident - WEAKNESS ON LEFT SIDE Endocrine Medical History: Renal/ Medical History: Reports: Hx Ovarian Cysts. Denies: Hx Peritoneal Dialysis Malignancy Medical History: Reports: Hx Breast Cancer GI Medical History: Reports: Hx Gastroesophageal Reflux Disease, Hx Hiatal Hernia Musculoskeltal Medical History: Psychiatric Medical History: Reports: Hx Depression Infectious Medical History: Past Surgical History: Reports: Hx Mastectomy - bilat 2010 - Immunizations Hx Diphtheria, Pertussis, Tetanus Vaccination: No Hx Pneumococcal Vaccination: 06/26/11 <MIGUEL VASQUEZ - Last Filed: 11/21/17 11:23> Review of Systems - Review of Systems Constitutional: No symptoms reported EENT: No symptoms reported Cardiovascular: See HPI, Other - "gurgling feeling in chest" and chest tightness Respiratory: See HPI, Short of breath, Wheezing Gastrointestinal: No symptoms reported Genitourinary: No symptoms reported Female Genitourinary: No symptoms reported Musculoskeletal: No symptoms reported Skin: No symptoms reported Hematologic/Lymphatic: No symptoms reported Neurological/Psychological: No symptoms reported -: Yes All other systems reviewed and negative <PEDROMIGUEL ALVAREZ - Last Filed: 11/21/17 11:23> Physical Exam <PEDROMIGUEL - Last Filed: 11/21/17 11:23> <ELIZA DAVIS - Last Filed: 11/21/17 14:26> - Vital signs Vitals: Temp Pulse Resp BP Pulse Ox 98.9 F 111 H 22 H 121/76 100 11/21/17 08:56 11/21/17 08:56 11/21/17 08:56 11/21/17 08:56 11/21/17 08:56 - Notes Notes: Physical Exam: General: Alert. HEENT: Normocephalic. Atraumatic. PERRL. Extraocular movements intact. Oropharynx clear. Neck: Supple. Non-tender. Respiratory: Tachypnic with a wheezing or glottic obstructive sounds when breathing. Cardiovascular: Tachycardic rate and regular rhythm. Abdominal: Normal Inspection. Non-tender. No distension. Normal Bowel Sounds. Back: Non-tender. No deformity or step off. Extremities: Moves all four extremities. Upper extremities: Normal inspection. Normal ROM. Lower extremities: Normal inspection. No edema. Normal ROM. Neurological: Normal cognition. AAOx3. Normal speech. (MIGUEL VASQUEZ) Course - Laboratory Result Diagrams: 11/21/17 10:39 11/21/17 10:39 <MIGUEL VASQUEZ - Last Filed: 11/21/17 11:23> - Laboratory Result Diagrams: 11/21/17 10:39 11/21/17 10:39 - Diagnostic Test Radiology reviewed: Reports reviewed - His x-ray does not show an acute process. - EKG Interpretation by [facility] EKG shows normal: Sinus rhythm, [place], Intervals, QRS Complexes, ST-T Waves Rate: Normal - 93 Rhythm: NSR <ELIZA DAVIS - Last Filed: 11/21/17 14:26> - Re-evaluation Re-evalutation: 11/21/17 14:13 Last breathing treatment was 2-1/2 hours ago. Patient's heart rate is in the 120-130 range at rest, with a pulse ox of 90% to 91% on room air. She will be put on nasal cannula and I will contact her primary care provider for admission. Reviewing the 2 admissions last year, her pulse ox is always quite high but I cannot find a verifiable pulse ox on room air for comparison. I can confirm that her heart rate is in the 80 range at baseline, based on review of records from last year. The patient's EKG done earlier this morning around 10 AM showed a heart rate of 93, however her pulse oximeter reading recorded about that time was 98%, so I suspect she was on oxygen at that time. All of this occurred over an hour before I saw the patient. The patient also received an IV dose of Lasix 20 mg about that time. I am not sure the reason for this, as she does not have any edema in her extremities, or on chest x-ray, and is not normally on diuretic medication. She will receive some volume replacement in case that is contributing to her tachycardia. I will contact her primary care provider for admission at this time. (ELIZA DAVIS) - Vital Signs Vital signs: Temp Pulse Resp BP Pulse Ox 98.9 F 111 H 22 H 130/84 H 91 L 11/21/17 08:56 11/21/17 08:56 11/21/17 12:01 11/21/17 12:00 11/21/17 13:03 - Laboratory Laboratory results interpreted by me: 11/21/17 11/21/17 11/21/17 10:39 10:39 11:05 MCV 98 H RDW 14.4 H Sodium 147.1 H Chloride 112 H BUN 6 L Urine Blood SMALL H Discharge <MIGUEL VASQUEZ - Last Filed: 11/21/17 11:23> - Discharge Admitting Provider: Celsa Unit Admitted: Medical Floor <ELIZA DAVIS - Last Filed: 11/21/17 14:26> - Discharge Clinical Impression: Acute exacerbation of COPD with asthma, Tachycardia, Hypoxemia Condition: Stable Disposition: ADMITTED INPATIENT Referrals: LUKASZ ORNELAS MD [Primary Care Provider] - Follow up as needed Scribe Attestation: 11/21/17 12:38 I personally performed the services described in the documentation, reviewed and edited the documentation which was dictated to the scribe in my presence, and it accurately records my words and actions. (ELIZA DAVIS) Scribe Documentation - Scribe Written by Mathieu:: Mathieu Lynn [id number] 11/21/17 acting as scribe for :: Akhil <MIGUEL VASQUEZ - Last Filed: 11/21/17 11:23>
[2017-11-21 11:30] LABS: CREATINE KINASE MB 0.59 ng/mL (<4.55); NT PRO BNP 138 pg/mL (5-900)
[2017-11-21 11:31] LABS: VENOUS BLOOD BASE EXCESS -3.8 mmol/L; VENOUS BLOOD HCO3 22.1 mmol/L (20-32); VENOUS BLOOD PCO2 43.4 mmHg (35-63); VENOUS BLOOD PH 7.33 (7.30-7.42)
[2017-11-21 11:32] LABS: TROPONIN I < 0.012 ng/mL
[2017-11-21 11:46] LABS: APPEARANCE,URINE SLIGHTLY-CLOUDY; BILIRUBIN,URINE NEGATIVE (NEGATIVE); COLOR,URINE YELLOW; GLUCOSE, URINE NEGATIVE (NEGATIVE); KETONES,URINE NEGATIVE (NEGATIVE); LEUKOCYTE ESTERASE,URINE NEGATIVE (NEGATIVE); NITRITE,URINE NEGATIVE (NEGATIVE); PROTEIN,URINE NEGATIVE (NEGATIVE); URINE SPECIFIC GRAVITY 1.012; UROBILINOGEN,URINE NEGATIVE mg/dL (<2.0)
--- NOTE | 2017-11-21 13:26 | RADIOLOGY REPORT (SQ) ---
EXAM DESCRIPTION: CHEST 2 VIEWS COMPLETED DATE/TIME: 11/21/2017 1:06 pm REASON FOR STUDY: Wheezing, coughing, short of breath. COMPARISON: CT chest 07/15/2016 Two-view chest 04/05/2016 PET-CT 07/23/2017 EXAM PARAMETERS: NUMBER OF VIEWS: two views TECHNIQUE: Digital Frontal and Lateral radiographic views of the chest acquired. RADIATION DOSE: NA LIMITATIONS: none FINDINGS: LUNGS AND PLEURA: The PE minimal chronic blunting left lateral costophrenic sulcus. No ac traci infiltrates. No pleural effusion. No pneumothorax. MEDIASTINUM AND HILAR STRUCTURES: No masses or contour abnormalities. HEART AND VASCULAR STRUCTURES: Heart normal size. No evidence for failure. BONES: No acute findings. HARDWARE: Clips left axilla and breast post mastectomy. Old left humeral head replacement OTHER: No other significant finding. IMPRESSION: No acute changes TECHNICAL DOCUMENTATION: JOB ID: [id number] [employer]- All Rights Reserved Reading location - IP/workstation name: [email or web address]
--- NOTE | 2017-11-21 19:26 | PDOC H&P ---
History of Present Illness Admission Date/PCP: 11/21/17 14:31 LUKASZ CECI Patient complains of: Worsening difficulty with breathing History of Present Illness: ARIELLA JUAREZ is a 52 year old female known to my practice who presented to the ED with worsening difficulty with breathing, chest tightness, coughing with greenish yellow sputum production. Patient was recently evaluated for similar symptoms in the last couple of weeks and treated with oral antibiotic, Medrol dose pack, and bronchodilators without significant improvement. She admitted to current cigarette smoking and noted worsening difficulty with breathing on those days that she smoke cigarette. Her evaluation in the ED was remarkable for tachycardia, tachypnea and hypoxemia despite treatment with bronchodilators. Her morbidities include Hypertension, Hyperlipidemia, COPD, Asthma, Cigarette smoking, GERD with Hiatus hernia, and Depression. She was advised hospitalization for further evaluation and treatment. Past Medical History Cardiac Medical History: Reports: Hyperlipidema Denies: Coronary Artery Disease, Myocardial Infarction, Hypertension Pulmonary Medical History: Reports: Asthma, Bronchitis, Chronic Obstructive Pulmonary Disease (COPD), Pneumonia Denies: Respiratory Failure, Sleep Apnea, Tuberculosis Neurological Medical History: Denies: Seizures Endocrine Medical History: Malignancy Medical History: Reports: Breast Cancer GI Medical History: Reports: Gastroesophageal Reflux Disease, Hiatal Hernia Musculoskeltal Medical History: Denies: Arthritis Psychiatric Medical History: Reports: Depression Denies: Dementia Hematology: Denies: Anemia Past Surgical History Past Surgical History: Reports: Mastectomy - bilat 2010 Denies: Hysterectomy, Pacemaker Social History Smoking Status: Current Some Day Smoker Frequency of Alcohol Use: Occasional Hx Recreational Drug Use: No Drugs: None Hx Prescription Drug Abuse: No - Advance Directive Resuscitation Status: Full Code Family History Family History: Reviewed & Not Pertinent Parental Family History Reviewed: Yes Children Family History Reviewed: Yes Sibling(s) Family History Reviewed.: Yes Medication/Allergy Home Medications: Budesonide/Formoterol Fumarate [Symbicort HFA 160-4.5 mcg Inhaler 6 gm] 2 spray IN Q12 03/02/17 Levalbuterol Tartrate [Xopenex Hfa] 2 puff IH Q4HP PRN 03/02/17 Megestrol Acetate 800 mg PO DAILY 03/02/17 Rivaroxaban [Xarelto] 20 mg PO QPM 03/02/17 Tiotropium [place] [Spiriva Handihaler 5 Cap/Kit (18 Mcg/Cap)] 1 puff IH DAILY 03/02/17 Albuterol Sulfate [Proair HFA Inhalation Aerosol 8.5 gm MDI] 2 puff IH Q4HP PRN 11/21/17 Anastrozole [Arimidex] 1 mg PO DAILY 11/21/17 Azelastine 0.1% 2 spray NASL BID 11/21/17 Benzonatate [Tessalon Perles 100 mg Capsule] 200 mg PO Q8HP PRN 11/21/17 Lansoprazole [Prevacid] 30 mg PO DAILY 11/21/17 Lisinopril [Zestril] 20 mg PO DAILY 11/21/17 Allergies/Adverse Reactions: prednisone [Prednisone] Adverse Reaction (Intermediate, Verified 11/21/17 18:46) Review of Systems Constitutional: ABSENT: chills, fever(s), headache(s), weight gain, weight loss Eyes: ABSENT: visual disturbances Ears: ABSENT: hearing changes Nose, Mouth, and Throat: PRESENT: mouth pain Cardiovascular: PRESENT: dyspnea on exertion Respiratory: PRESENT: cough, dyspnea, sputum Gastrointestinal: ABSENT: abdominal pain, constipation, diarrhea, hematemesis, hematochezia, nausea, vomiting Genitourinary: ABSENT: dysuria, hematuria Musculoskeletal: ABSENT: joint swelling Integumentary: ABSENT: rash, wounds Neurological: ABSENT: abnormal gait, abnormal speech, confusion, dizziness, focal weakness, syncope Psychiatric: ABSENT: anxiety, depression, homidical ideation, suicidal ideation Endocrine: ABSENT: cold intolerance, heat intolerance, polydipsia, polyuria Hematologic/Lymphatic: ABSENT: easy bleeding, easy bruising, lymphadenopathy Allergic/Immunologic: ABSENT: seasonal rhinorrhea Physical Exam Vital Signs: Temp Pulse Resp BP Pulse Ox 98.9 F 111 H 23 H 130/84 H 95 11/21/17 08:56 11/21/17 08:56 11/21/17 15:00 11/21/17 12:00 11/21/17 15:00 General appearance: PRESENT: mild distress - remain on nasal cannula supplemental oxygen at 2L/min, well-developed, well-nourished Head exam: PRESENT: atraumatic, normocephalic Eye exam: PRESENT: conjunctiva pink, EOMI, PERRLA. ABSENT: scleral icterus Ear exam: PRESENT: normal external ear exam Mouth exam: PRESENT: moist, tongue midline Teeth exam: PRESENT: edentulous - dentures in use Neck exam: PRESENT: full ROM. ABSENT: carotid bruit, JVD, lymphadenopathy, thyromegaly Respiratory exam: PRESENT: decreased breath sounds, rhonchi, wheezes Additional comments: post bilateral mastectomy surgery Cardiovascular exam: PRESENT: RRR, +S1, +S2, tachycardia. ABSENT: diastolic murmur, systolic murmur Pulses: PRESENT: normal dorsalis pedis pul, +2 pedal pulses bilateral Vascular exam: PRESENT: normal capillary refill. ABSENT: pallor GI/Abdominal exam: PRESENT: normal bowel sounds, soft. ABSENT: distended, guarding, mass, organolmegaly, rebound, tenderness Rectal exam: PRESENT: deferred Extremities exam: ABSENT: pedal edema Musculoskeletal exam: PRESENT: normal inspection Neurological exam: PRESENT: alert, awake, oriented to person, oriented to place , oriented to time, oriented to situation, CN II-XII grossly intact. ABSENT: motor sensory deficit Psychiatric exam: PRESENT: appropriate affect, normal mood. ABSENT: homicidal ideation, suicidal ideation Skin exam: PRESENT: dry, intact, warm. ABSENT: cyanosis, rash Results Impressions: Chest X-Ray 11/21/17 12:37 IMPRESSION: No acute changes Assessment & Plan - Diagnosis (1) Acute exacerbation of COPD with asthma Is this a current diagnosis for this admission?: Yes Plan: See admitting attending physician orders. (2) Hypoxemia Is this a current diagnosis for this admission?: Yes Plan: See admitting attending physician orders. (3) Tachycardia Is this a current diagnosis for this admission?: Yes Plan: See admitting attending physician orders. (4) Tachypnea Is this a current diagnosis for this admission?: Yes Plan: See admitting attending physician orders. (5) Cigarette smoker one half pack a day or less Is this a current diagnosis for this admission?: Yes Plan: See admitting attending physician orders. (6) Essential hypertension Is this a current diagnosis for this admission?: Yes Plan: See admitting attending physician orders. (7) GERD (gastroesophageal reflux disease) Qualifiers: Esophagitis presence: without esophagitis Qualified Code(s): K21.9 - Gastro -esophageal reflux disease without esophagitis Is this a current diagnosis for this admission?: Yes Plan: See admitting attending physician orders. (8) HLD (hyperlipidemia) Qualifiers: Hyperlipidemia type: unspecified Qualified Code(s): E78.5 - Hyperlipidemia , unspecified Is this a current diagnosis for this admission?: Yes Plan: See admitting attending physician orders. (9) Status post bilateral mastectomy Is this a current diagnosis for this admission?: Yes Plan: See admitting attending physician orders. - Time Time Spent: 50 to 70 Minutes Smoking Cessation Education: 3 to 10 minutes Medications reviewed and adjusted accordingly: Yes Anticipated discharge: Home Within: Other - Inpatient Certification Based on my medical assessment, after consideration of the patient's comorbidities, presenting symptoms, or acuity I expect that the services needed warrant INPATIENT care.: Yes I certify that my determination is in accordance with my understanding of Medicare's requirements for reasonable and necessary INPATIENT services [42 CFR 412.3e].: Yes Medical Necessity: Need Close Monitoring Due to Risk of Patient Decompensation, Need For IV Fluids, Need For Continuous Telemetry Monitoring, Need for Nebulizer Therapy and Monitoring of Response, Need for IV Antibiotics, Risk of Complication if Not Cared For in Hospital 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
[2017-11-21] MEDS ORDERED: LISINOPRIL 10 MG TABLET PO ONE (21:00)
[2017-11-21] MEDS: METHYLPREDNISOLONE INJ 125 MG/2 ML SDV IV SCH (21:39)
[2017-11-21] MEDS: RIVAROXABAN 10 MG TABLET PO SCH (21:40)
--- NOTE | 2017-11-21 23:41 | EKG REPORT ---
SEVERITY:- ABNORMAL ECG - SINUS RHYTHM NONSPECIFIC T ABNORMALITIES, ANT-LAT LEADS ST ELEVATION SUGGESTS PERICARDITIS : Confirmed by: Otilio Lamb 21-Nov-2017 23:40:17
[2017-11-22] MEDS: LANSOPRAZOLE 30 MG TAB.RAP.DR PO SCH (06:08)
[2017-11-22] MEDS: METHYLPREDNISOLONE INJ 125 MG/2 ML SDV IV SCH ×3 (06:08→21:30)
[2017-11-22 06:30] LABS: ABSOLUTE LYMPHOCYTES (AUTO) 0.6 10^3/uL (0.5-4.7); ABSOLUTE MONOCYTES (AUTO) 0.3 10^3/uL (0.1-1.4); ABSOLUTE NEUT (AUTO) 6.1 10^3/uL (1.7-8.2); BASOPHILS % (AUTO) 0.1 % (0-2); HEMATOCRIT 35.3 % (36.0-47.0); HEMOGLOBIN 11.6 g/dL (12.0-15.5); LYMPHOCYTES % (AUTO) 8.1 % (13-45); MEAN CORPUSCULAR HEMOGLOBIN 31.7 pg (27.0-33.4); MEAN CORPUSCULAR HGB CONC 32.8 g/dL (32.0-36.0); MEAN CORPUSCULAR VOLUME 97 fl (80-97); MONOCYTES % (AUTO) 3.9 % (3-13); PLATELET COUNT 286 10^3/uL (150-450); RED BLOOD COUNT 3.64 10^6/uL (3.72-5.28); SEGMENTED NEUTROPHILS % (AUTO) 87.9 % (42-78); TOTAL CELLS COUNTED % (AUTO) 100 %; WHITE BLOOD COUNT 6.9 10^3/uL (4.0-10.5)
[2017-11-22 06:46] LABS: ANION GAP 10 (5-19); BLOOD UREA NITROGEN 11 mg/dL (7-20); CALCIUM 9.5 mg/dL (8.4-10.2); CARBON DIOXIDE 21 mmol/L (22-30); CHLORIDE 115 mmol/L (98-107); GLUCOSE 122 mg/dL (75-110); POTASSIUM 4.3 mmol/L (3.6-5.0)
[2017-11-22] MEDS: LEVALBUTEROL HCL NEB 1.25 MG/3 ML AMPUL NEB PRN ×2 (08:15→13:45)
[2017-11-22] MEDS ORDERED: (PENDING PHARMACY ID) (Megestrol Acetate [Megestrol Acetate] 800 MG) PO SCH (10:00)
[2017-11-22] MEDS ORDERED: AZELASTINE 0.1% NASL SCH (10:00)
[2017-11-22] MEDS ORDERED: (PENDING PHARMACY ID) (Lisinopril [Zestril] 20 MG) PO SCH (10:00)
[2017-11-22] MEDS: LISINOPRIL 10 MG TABLET PO SCH (10:49)
[2017-11-22] MEDS: MEGESTROL ACETATE SUSP 400 MG/10 ML UDCUP PO SCH (10:52)
[2017-11-22] MEDS: TIOTROPIUM BROMIDE DPI 5 CAP/KIT (18 MCG/CAP) IH SCH (10:53)
[2017-11-22] MEDS: ANASTROZOLE 1 MG TABLET PO SCH (10:54)
[2017-11-22] MEDS: NORMAL SALINE 1000 ML 1,000 ML IV PRN (17:34)
--- NOTE | 2017-11-22 18:47 | PDOC PROGRESS REPORT ---
Subjective Progress Note for:: 11/22/17 Subjective:: Patient reported improvement in her breathing. Remain on IV Methylprednisolone and bronchodilators therapy. No fever or chills. Coughing do persist with some improvement. No chest pain. No nausea, vomiting or abdominal pain. Reason For Visit: EXACERBATED COPD ASTHMA WITH HYPOXEMIA,TACHYCARDIA Physical Exam Vital Signs: Temp Pulse Resp BP Pulse Ox 98.5 F 86 18 106/63 97 11/22/17 12:00 11/22/17 13:48 11/22/17 13:48 11/22/17 12:00 11/22/17 13:48 Intake & Output 11/21/17 11/22/17 11/23/17 06:59 06:59 06:59 Intake Total 1625 Balance 1625 Weight 57.4 kg General appearance: PRESENT: mild distress - remain on supplemental oxygen via nasal cannula at 2L/min Head exam: PRESENT: atraumatic, normocephalic Eye exam: PRESENT: conjunctiva pink, EOMI, PERRLA. ABSENT: scleral icterus Mouth exam: PRESENT: moist Teeth exam: PRESENT: edentulous - dentures in use Respiratory exam: PRESENT: decreased breath sounds, rhonchi - expiratory phase Vascular exam: PRESENT: normal capillary refill. ABSENT: pallor GI/Abdominal exam: PRESENT: normal bowel sounds, soft. ABSENT: distended, guarding, mass, organolmegaly, rebound, tenderness Extremities exam: ABSENT: pedal edema Musculoskeletal exam: PRESENT: normal inspection Neurological exam: PRESENT: alert, awake, oriented to person, oriented to place , oriented to time, oriented to situation, CN II-XII grossly intact. ABSENT: motor sensory deficit Psychiatric exam: PRESENT: appropriate affect, normal mood. ABSENT: homicidal ideation, suicidal ideation Skin exam: PRESENT: dry, intact, warm. ABSENT: cyanosis, rash Results Laboratory Results: 11/22/17 06:10 11/22/17 06:10 11/22/17 11/22/17 06:10 06:10 WBC 6.9 RBC 3.64 L Hgb 11.6 L Hct 35.3 L MCV 97 MCH 31.7 MCHC 32.8 RDW 14.0 Plt Count 286 Seg Neutrophils % 87.9 H Lymphocytes % 8.1 L Monocytes % 3.9 Eosinophils % 0.0 Basophils % 0.1 Absolute Neutrophils 6.1 Absolute Lymphocytes 0.6 Absolute Monocytes 0.3 Absolute Eosinophils 0.0 Absolute Basophils 0.0 Sodium 146.0 H Potassium 4.3 Chloride 115 H Carbon Dioxide 21 L Anion Gap 10 BUN 11 Creatinine 0.78 Est GFR ( Amer) > 60 Est GFR (Non-Af Amer) > 60 Glucose 122 H Calcium 9.5 Impressions: Chest X-Ray 11/21/17 12:37 IMPRESSION: No acute changes Assessment & Plan - Diagnosis (1) Acute exacerbation of COPD with asthma Is this a current diagnosis for this admission?: Yes Plan: See attending physician orders. (2) Hypoxemia Is this a current diagnosis for this admission?: Yes Plan: See attending physician orders. (3) Tachycardia Is this a current diagnosis for this admission?: Yes Plan: See attending physician orders. (4) Tachypnea Is this a current diagnosis for this admission?: Yes Plan: See attending physician orders. (5) Cigarette smoker one half pack a day or less Is this a current diagnosis for this admission?: Yes Plan: See attending physician orders. (6) Essential hypertension Is this a current diagnosis for this admission?: Yes Plan: See attending physician orders. (7) HLD (hyperlipidemia) Qualifiers: Hyperlipidemia type: unspecified Qualified Code(s): E78.5 - Hyperlipidemia , unspecified Is this a current diagnosis for this admission?: Yes Plan: See attending physician orders. (8) GERD (gastroesophageal reflux disease) Qualifiers: Esophagitis presence: without esophagitis Qualified Code(s): K21.9 - Gastro -esophageal reflux disease without esophagitis Is this a current diagnosis for this admission?: Yes Plan: See attending physician orders. (9) Status post bilateral mastectomy Is this a current diagnosis for this admission?: Yes - Time Time Spent with patient: 25-34 minutes - Inpatient Certification Based on my medical assessment, after consideration of the patient's comorbidities, presenting symptoms, or acuity I expect that the services needed warrant INPATIENT care.: Yes I certify that my determination is in accordance with my understanding of Medicare's requirements for reasonable and necessary INPATIENT services [42 CFR 412.3e].: Yes Medical Necessity: Need Close Monitoring Due to Risk of Patient Decompensation, Need For IV Fluids, Need For Continuous Telemetry Monitoring, Need for Nebulizer Therapy and Monitoring of Response, Risk of Complication if Not Cared For in Hospital 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
[2017-11-22] MEDS: RIVAROXABAN 10 MG TABLET PO SCH (21:28)
[2017-11-23] MEDS: NORMAL SALINE 1000 ML 1,000 ML IV PRN ×2 (03:55→15:25)
[2017-11-23] MEDS: METHYLPREDNISOLONE INJ 125 MG/2 ML SDV IV SCH ×3 (05:55→21:13)
[2017-11-23] MEDS: LANSOPRAZOLE 30 MG TAB.RAP.DR PO SCH (05:55)
[2017-11-23] MEDS: LEVALBUTEROL HCL NEB 1.25 MG/3 ML AMPUL NEB PRN ×2 (07:45→19:40)
[2017-11-23] MEDS: LISINOPRIL 10 MG TABLET PO SCH (10:15)
[2017-11-23] MEDS: MEGESTROL ACETATE SUSP 400 MG/10 ML UDCUP PO SCH (10:16)
[2017-11-23] MEDS: TIOTROPIUM BROMIDE DPI 5 CAP/KIT (18 MCG/CAP) IH SCH (10:17)
[2017-11-23] MEDS: ANASTROZOLE 1 MG TABLET PO SCH (10:18)
[2017-11-23] MEDS: GUAIFENESIN SYRP 200 MG/10 ML UDC PO PRN ×2 (15:24→20:20)
--- NOTE | 2017-11-23 19:30 | PDOC PROGRESS REPORT ---
Subjective Progress Note for:: 11/23/17 Subjective:: Patient reported continue improvement in her breathing but persistent cough with sputum production. No fever or chills. No chest pain. No nausea, vomiting or abdominal pain. Remain on IV Methylprednisolone and bronchodilators therapy. Reason For Visit: EXACERBATED COPD ASTHMA WITH HYPOXEMIA,TACHYCARDIA Physical Exam Vital Signs: Temp Pulse Resp BP Pulse Ox 98.7 F 79 17 130/80 H 94 11/23/17 15:23 11/23/17 15:23 11/23/17 15:23 11/23/17 15:23 11/23/17 15:23 Intake & Output 11/22/17 11/23/17 11/24/17 06:59 06:59 06:59 Intake Total 1625 3738 695 Balance 1625 3738 695 Weight 57.4 kg 57.5 kg Physical Exam: General appearance: PRESENT: mild distress - remain on supplemental oxygen via nasal cannula at 2L/min Head exam: PRESENT: atraumatic, normocephalic Eye exam: PRESENT: conjunctiva pink, EOMI, PERRLA. ABSENT: scleral icterus Mouth exam: PRESENT: moist Teeth exam: PRESENT: edentulous - dentures in use Respiratory exam: PRESENT: decreased breath sounds, minimal rhonchi - expiratory phase Vascular exam: PRESENT: normal capillary refill. ABSENT: pallor GI/Abdominal exam: PRESENT: normal bowel sounds, soft. ABSENT: distended, guarding, mass, organomegaly, rebound, tenderness Extremities exam: ABSENT: pedal edema Musculoskeletal exam: PRESENT: normal inspection Neurological exam: PRESENT: alert, awake, oriented to person, oriented to place , oriented to time, oriented to situation, CN II-XII grossly intact. ABSENT: motor sensory deficit Psychiatric exam: PRESENT: appropriate affect, normal mood. ABSENT: homicidal ideation, suicidal ideation Skin exam: PRESENT: dry, intact, warm. ABSENT: cyanosis, rash Results Laboratory Results: 11/22/17 06:10 11/22/17 06:10 Impressions: Chest X-Ray 11/21/17 12:37 IMPRESSION: No acute changes Assessment & Plan - Diagnosis (1) Acute exacerbation of COPD with asthma Is this a current diagnosis for this admission?: Yes Plan: See attending physician orders. (2) Hypoxemia Is this a current diagnosis for this admission?: Yes Plan: Improved on current medical management. (3) Tachycardia Is this a current diagnosis for this admission?: Yes Plan: Resolved (4) Tachypnea Is this a current diagnosis for this admission?: Yes Plan: Improved on current medical management. (5) Cigarette smoker one half pack a day or less Is this a current diagnosis for this admission?: Yes Plan: Continue bedside smoking cessation counseling (6) Essential hypertension Is this a current diagnosis for this admission?: Yes Plan: Continue current medical management. (7) HLD (hyperlipidemia) Qualifiers: Hyperlipidemia type: unspecified Qualified Code(s): E78.5 - Hyperlipidemia , unspecified Is this a current diagnosis for this admission?: Yes Plan: Continue current medical management. (8) GERD (gastroesophageal reflux disease) Qualifiers: Esophagitis presence: without esophagitis Qualified Code(s): K21.9 - Gastro -esophageal reflux disease without esophagitis Is this a current diagnosis for this admission?: Yes Plan: Continue current medical management. (9) Status post bilateral mastectomy Is this a current diagnosis for this admission?: Yes Plan: Continue current medical management. (10) Seasonal allergic rhinitis Qualifiers: Allergic rhinitis trigger: unspecified Qualified Code(s): J30.2 - Other seasonal allergic rhinitis Is this a current diagnosis for this admission?: Yes Plan: Start on Singulair 10 mg po qhs medical management. - Time Time Spent with patient: 25-34 minutes Smoking Cessation Education: 3 to 10 minutes Medications reviewed and adjusted accordingly: Yes Anticipated discharge: Home Within: within 48 hours - Inpatient Certification Based on my medical assessment, after consideration of the patient's comorbidities, presenting symptoms, or acuity I expect that the services needed warrant INPATIENT care.: Yes I certify that my determination is in accordance with my understanding of Medicare's requirements for reasonable and necessary INPATIENT services [42 CFR 412.3e].: Yes Medical Necessity: Need Close Monitoring Due to Risk of Patient Decompensation, Need For IV Fluids, Need For Continuous Telemetry Monitoring, Need for Nebulizer Therapy and Monitoring of Response, Risk of Complication if Not Cared For in Hospital 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 Start on Singulair 10 mg po qhs medical management. Continue all other current medical management.
[2017-11-23] MEDS: RIVAROXABAN 10 MG TABLET PO SCH (21:12)
[2017-11-23] MEDS ORDERED: MONTELUKAST SODIUM 10 MG TABLET PO SCH (22:00)
[2017-11-24] MEDS: GUAIFENESIN SYRP 200 MG/10 ML UDC PO PRN ×2 (01:58→06:38)
[2017-11-24] MEDS ORDERED: LANSOPRAZOLE 30 MG TAB.RAP.DR PO SCH (06:00)
[2017-11-24] MEDS: METHYLPREDNISOLONE INJ 125 MG/2 ML SDV IV SCH (06:35)
[2017-11-24 06:38] LABS: HEMATOCRIT 33.9 % (36.0-47.0); HEMOGLOBIN 11.3 g/dL (12.0-15.5); MEAN CORPUSCULAR HEMOGLOBIN 32.2 pg (27.0-33.4); MEAN CORPUSCULAR HGB CONC 33.4 g/dL (32.0-36.0); MEAN CORPUSCULAR VOLUME 96 fl (80-97); PLATELET COUNT 307 10^3/uL (150-450); RED BLOOD COUNT 3.52 10^6/uL (3.72-5.28); RED CELL DISTRIBUTION WIDTH 13.9 % (11.5-14.0); WHITE BLOOD COUNT 9.3 10^3/uL (4.0-10.5)
[2017-11-24 06:45] LABS: ANION GAP 11 (5-19); BLOOD UREA NITROGEN 9 mg/dL (7-20); CALCIUM 9.1 mg/dL (8.4-10.2); CARBON DIOXIDE 23 mmol/L (22-30); CHLORIDE 109 mmol/L (98-107); GLUCOSE 104 mg/dL (75-110); POTASSIUM 3.8 mmol/L (3.6-5.0); SODIUM 143.4 mmol/L (137-145)
[2017-11-24 07:08] LABS: ABSOLUTE LYMPHOCYTES# (MANUAL) 1.3 10^3/uL (0.5-4.7); ABSOLUTE MONOCYTES # (MANUAL) 0.6 10^3/uL (0.1-1.4); ABSOLUTE NEUTROPHILS# (MANUAL) 7.4 10^3/uL (1.7-8.2); BASOPHILS % (MANUAL) 0 % (0-2); EOSINOPHILS % (MANUAL) 0 % (0-6); LYMPHOCYTES % (MANUAL) 14 % (13-45); MONOCYTES % (MANUAL) 6 % (3-13); SEGMENTED NEUTROPHILS % (MAN) 80 % (42-78); TOTAL CELLS COUNTED 100
[2017-11-24 07:17] LABS: ANISOCYTOSIS SLIGHT; PLATELET COMMENT ADEQUATE; POLYCHROMASIA SLIGHT; TOXIC GRANULATION SLIGHT; TOXIC VACUOLATION PRESENT
[2017-11-24 08:48] VITALS: BP 133/81
--- NOTE | 2017-12-06 11:19 | PDOC DISCHARGE SUMMARY ---
General - Admit/Disc Date/PCP Admission Date/Primary Care Provider: 11/21/17 14:31 LUKASZ ORNELAS Discharge Date: 11/24/17 - Discharge Diagnosis (1) Acute exacerbation of COPD with asthma Is this a current diagnosis for this admission?: Yes (2) Hypoxemia Is this a current diagnosis for this admission?: Yes (3) Tachycardia Is this a current diagnosis for this admission?: Yes (4) Tachypnea Is this a current diagnosis for this admission?: Yes (5) Cigarette smoker one half pack a day or less Is this a current diagnosis for this admission?: Yes (6) Essential hypertension Is this a current diagnosis for this admission?: Yes (7) HLD (hyperlipidemia) Is this a current diagnosis for this admission?: Yes (8) GERD (gastroesophageal reflux disease) Is this a current diagnosis for this admission?: Yes (9) Status post bilateral mastectomy Is this a current diagnosis for this admission?: Yes (10) Seasonal allergic rhinitis Is this a current diagnosis for this admission?: Yes - Additional Information Resuscitation Status: Full Code Discharge Diet: As Tolerated Discharge Activity: Activity As Tolerated Prescriptions: Methylprednisolone [Medrol] 4 mg PO ASDIR PRN #64 tablet PRN Reason: Montelukast Sodium [Singulair 10 mg Tablet] 10 mg PO QHS #30 tablet Home Medications: Budesonide/Formoterol Fumarate [Symbicort HFA 160-4.5 mcg Inhaler 6 gm] 2 spray IN Q12 03/02/17 Levalbuterol Tartrate [Xopenex Hfa] 2 puff IH Q4HP PRN 03/02/17 Megestrol Acetate 800 mg PO DAILY 03/02/17 Rivaroxaban [Xarelto] 20 mg PO QPM 03/02/17 Tiotropium [place] [Spiriva Handihaler 5 Cap/Kit (18 Mcg/Cap)] 1 puff IH DAILY 03/02/17 Albuterol Sulfate [Proair HFA Inhalation Aerosol 8.5 gm MDI] 2 puff IH Q4HP PRN 11/21/17 Anastrozole [Arimidex] 1 mg PO DAILY 11/21/17 Azelastine 0.1% 2 spray NASL BID 11/21/17 Benzonatate [Tessalon Perles 100 mg Capsule] 200 mg PO Q8HP PRN 11/21/17 Lansoprazole [Prevacid] 30 mg PO DAILY 11/21/17 Lisinopril [Zestril] 20 mg PO DAILY 11/21/17 Methylprednisolone [Medrol] 4 mg PO ASDIR PRN #64 tablet 11/24/17 Montelukast Sodium [Singulair 10 mg Tablet] 10 mg PO QHS #30 tablet 11/24/17 History of Present Illness Patient complains of: Worsening difficulty with breathing History of Present Illness: ARIELLA JUAREZ is a 52 year old female known to my practice who presented to the ED with worsening difficulty with breathing, chest tightness, coughing with greenish yellow sputum production. Patient was recently evaluated for similar symptoms in the last couple of weeks and treated with oral antibiotic, Medrol dose pack, and bronchodilators without significant improvement. She admitted to current cigarette smoking and noted worsening difficulty with breathing on those days that she smoke cigarette. Her evaluation in the ED was remarkable for tachycardia, tachypnea and hypoxemia despite treatment with bronchodilators. Her morbidities include Hypertension, Hyperlipidemia, COPD, Asthma, Cigarette smoking, GERD with Hiatus hernia, and Depression. She was advised hospitalization for further evaluation and treatment. Hospital Course Hospital Course: Patient was admitted as case of exacerbated COPD with asthma, hypoxemia, tachycardia and tachypnea. She responded to IV Solu Medrol and bronchodilators therapy. She was eventually transition to oral Methylprednisolone therapy. She reported improvement in her symptoms and breathing better. She is agreeable to discharge home today. Extensive counseling was mazin pittman on smoking cessation prior to her discharge home today. She will follow up in the office as instructed upon discharge. Physical Exam Vital Signs: Temp Pulse Resp BP Pulse Ox 98.9 F 57 L 16 131/77 H 96 11/24/17 07:28 11/24/17 07:28 11/24/17 07:28 11/24/17 07:28 11/24/17 07:28 Intake & Output 11/23/17 11/24/17 11/25/17 06:59 06:59 06:59 Intake Total 3738 3487 Balance 3738 3487 Weight 57.5 kg 59.2 kg Physical Exam: General appearance: PRESENT: mild distress - remain on supplemental oxygen via nasal cannula at 2L/min Head exam: PRESENT: atraumatic, normocephalic Eye exam: PRESENT: conjunctiva pink, EOMI, PERRLA. ABSENT: scleral icterus Mouth exam: PRESENT: moist Teeth exam: PRESENT: edentulous - dentures in use Respiratory exam: PRESENT: decreased breath sounds, minimal rhonchi - expiratory phase Vascular exam: ABSENT: pallor GI/Abdominal exam: PRESENT: normal bowel sounds, soft. ABSENT: distended, guarding, mass, organomegaly, rebound, tenderness Extremities exam: ABSENT: pedal edema Musculoskeletal exam: PRESENT: normal inspection Neurological exam: PRESENT: alert, awake, oriented to person, oriented to place , oriented to time, oriented to situation, CN II-XII grossly intact. ABSENT: motor sensory deficit Psychiatric exam: PRESENT: appropriate affect, normal mood. ABSENT: homicidal ideation, suicidal ideation Skin exam: PRESENT: dry, intact, warm. ABSENT: cyanosis, rash Results Laboratory Results: 11/24/17 05:50 11/24/17 05:50 11/24/17 11/24/17 05:50 05:50 WBC 9.3 RBC 3.52 L Hgb 11.3 L Hct 33.9 L MCV 96 MCH 32.2 MCHC 33.4 RDW 13.9 Plt Count 307 Seg Neutrophils % Not Reportable Lymphocytes % Not Reportable Monocytes % Not Reportable Eosinophils % Not Reportable Basophils % Not Reportable Absolute Neutrophils Not Reportable Absolute Lymphocytes Not Reportable Absolute Monocytes Not Reportable Absolute Eosinophils Not Reportable Absolute Basophils Not Reportable Sodium 143.4 Potassium 3.8 Chloride 109 H Carbon Dioxide 23 Anion Gap 11 BUN 9 Creatinine 0.70 Est GFR ( Amer) > 60 Est GFR (Non-Af Amer) > 60 Glucose 104 Calcium 9.1 Impressions: Chest X-Ray 11/21/17 12:37 IMPRESSION: No acute changes Qualifiers - * PATIENT BEING DISCHARGED WITH ANY OF THE FOLLOWING DIAGNOSIS: No Plan Discharge Plan: Discharge home today. Follow up in the office as instructed upon discharge. Time Spent: Greater than 30 Minutes - More than 50% of this 40 mins discharge plan was spent in counseling patient od smoking cessation and post discharge care coordination.
== END 2017-11-24 09:13 | disposition home or self-care (01) | DRG 191 ==
LOC: ER 08:52 → EH 14:31 → 4S 18:50
PROVIDERS: ADMIT Internal Medicine Geriatric Medicine; ATTEND Internal Medicine Geriatric Medicine
DX: J44.1 Chronic obstructive pulmonary disease with (acute) exacerbation (principal); I69.354 Hemiplegia and hemiparesis following cerebral infarction affecting left non-dominant side; J45.998 Other asthma; R00.0 Tachycardia, unspecified; R09.02 Hypoxemia; I10 Essential (primary) hypertension; J30.2 Other seasonal allergic rhinitis; K21.9 Gastro-esophageal reflux disease without esophagitis; E78.00 Pure hypercholesterolemia, unspecified; F17.210 Nicotine dependence, cigarettes, uncomplicated; Z79.01 Long term (current) use of anticoagulants; Z79.51 Long term (current) use of inhaled steroids; Z79.899 Other long term (current) drug therapy; Z90.13 Acquired absence of bilateral breasts and nipples; Z85.3 Personal history of malignant neoplasm of breast; Z71.6 Tobacco abuse counseling
CPT/HCPCS: 36415; 71046; 80048; 80053; 81001; 82550; 82553; 82803; 83880; 84484; 85025; 93005; 93010; 94640; 96365; 96366; 96375; 99285; J1940; J2930; J3475; J3490; J7030; J7620

== ENCOUNTER 2018-02-11 07:34 | Inpatient (IN) | payer MEDICARE, MEDICAID ==
[2018-02-11] MEDS ORDERED: IPRATROPIUM/ALBUTEROL 0.5-2.5 MG/3 ML AMPUL NEB ONE ×2 (07:40→07:48)
[2018-02-11] MEDS ORDERED: MAGNESIUM SULFATE/D5W 1 GM/100 ML RTUPB IV ONE ×2 (07:42→07:50)
[2018-02-11] MEDS ORDERED: METHYLPREDNISOLONE INJ 125 MG/2 ML SDV ONE (07:46)
[2018-02-11] MEDS ORDERED: METHYLPREDNISOLONE INJ 125 MG/2 ML SDV IV ONE (07:48)
[2018-02-11] MEDS: ALBUTEROL SULFATE 0.083% NEB 2.5 MG/3 ML AMPUL NEB SCH ×2 (07:50→07:59)
--- NOTE | 2018-02-11 07:51 | ER Document Report ---
ED Respiratory Problem - General Chief Complaint: Breathing Difficulty Stated Complaint: DIFFICULTY BREATHING Time Seen by Provider: 02/11/18 07:46 Mode of Arrival: Ambulatory Information source: Patient Notes: Patient presents complaining of cough, wheezing and difficulty breathing. Patient states she has had asthma and COPD exacerbation symptoms for the past week. Patient did see her primary doctor for this complaint about 4 days ago in the office. Patient does continue to smoke less than a pack per day at this time. Patient denies any fever. TRAVEL OUTSIDE OF THE [place] IN LAST 30 DAYS: No - HPI Patient complains to provider of: Asthma, CHF, COPD, Cough, Short of breath Onset: Last week Duration: Continuous, Worse/persistent Quality of pain: No pain Context: Hx asthma, Hx CHF, Hx COPD. denies: Recent immobilization, Recent surgery Cough: Nonproductive Associated symptoms: Cough, Difficulty breathing, Heart racing, Short of breath , Wheezing Similar symptoms previously: Yes Recently seen / treated by doctor: Yes - Related Data Allergies/Adverse Reactions: prednisone [Prednisone] Adverse Reaction (Intermediate, Verified 11/21/17 18:46) Past Medical History - General Information source: Patient - Social History Smoking Status: Current Every Day Smoker Frequency of alcohol use: None Drug Abuse: None Lives with: Family Family History: Reviewed & Not Pertinent - Past Medical History Cardiac Medical History: Reports: Hx Congestive Heart Failure, Hx Hypercholesterolemia Denies: Hx Coronary Artery Disease, Hx Heart Attack, Hx Hypertension Pulmonary Medical History: Reports: Hx Asthma, Hx Bronchitis, Hx COPD, Hx Pneumonia Denies: Hx Respiratory Failure, Hx Sleep Apnea, Hx Tuberculosis Neurological Medical History: Reports: Hx Cerebrovascular Accident - WEAKNESS ON LEFT SIDE. Denies: Hx Seizures Endocrine Medical History: Renal/ Medical History: Reports: Hx Ovarian Cysts. Denies: Hx Peritoneal Dialysis Malignancy Medical History: Reports: Hx Breast Cancer GI Medical History: Reports: Hx Gastroesophageal Reflux Disease, Hx Hiatal Hernia Musculoskeletal Medical History: Denies Hx Arthritis, Denies Hx Multiple Sclerosis Psychiatric Medical History: Reports: Hx Depression Denies: Hx Dementia Infectious Medical History: Past Surgical History: Reports: Hx Mastectomy - bilat 2010. Denies: Hx Hysterectomy, Hx Pacemaker - Immunizations Hx Diphtheria, Pertussis, Tetanus Vaccination: No Hx Pneumococcal Vaccination: 06/26/11 Review of Systems - Review of Systems Constitutional: No symptoms reported. denies: Fever, Recent illness EENT: No symptoms reported Cardiovascular: Heart racing Respiratory: Cough, Short of breath, Wheezing Gastrointestinal: No symptoms reported. denies: Abdominal pain, Nausea, Vomiting Genitourinary: No symptoms reported Female Genitourinary: No symptoms reported Musculoskeletal: No symptoms reported. denies: Back pain Skin: No symptoms reported Hematologic/Lymphatic: No symptoms reported Neurological/Psychological: No symptoms reported Physical Exam - Vital signs Vitals: Pulse Ox 89 L 02/11/18 07:45 - General General appearance: Alert In distress: Moderate - HEENT Head: Normocephalic, Atraumatic - Respiratory Respiratory status: Respiratory distress, Labored, Tachypnea Breath sounds: Wheezing Chest palpation: Normal - Cardiovascular Rhythm: Tachycardia Heart sounds: S1 appreciated, S2 appreciated Murmur: No - Back Back: Normal, Nontender - Extremities General upper extremity: Normal inspection, Normal ROM General lower extremity: Normal inspection, Normal ROM - Neurological Neuro grossly intact: Yes Cognition: Normal [place] Coma Scale Eye Opening: Spontaneous Billy Coma Scale Verbal: Oriented [place] Coma Scale Motor: Obeys Commands Billy Coma Scale Total: 15 - Psychological Associated symptoms: Normal affect, Normal mood - Skin Skin Temperature: Warm Skin Moisture: Dry Skin Color: Normal Course - Re-evaluation Re-evalutation: 02/11/18 08:05 Patient's nebulizer with loose attachment at the source of air, adjusted and patient now receiving nebulizer appropriately. Dr. Rodgers consulted and to bedside for examination, BiPAP ordered. 02/11/18 08:31 Patient continues tachycardic heart rate 120s with oxygen saturation 99%. Patient with tight air movement and wheezing bilaterally 02/11/18 09:04 Patient continues with bilateral wheezing and tachycardia. Consulted with Dr. Steen who agrees to accept patient for admission to [facility]. 02/11/18 09:42 Patient states that she was up all night due to her difficulty breathing and her family laid the head of the bed back, when patient was in the supine position she had increased difficulty breathing. Patient and family educated that patient will need to be sitting upright assist with her breathing. Discussed heart rate in the 120s and oxygen saturation 97%. Consulted again with Dr. Gonzales who advises repeating ABG at this time. - Vital Signs Vital signs: Temp Pulse Resp BP Pulse Ox 97.8 F 120 H 28 H 132/93 H 100 02/11/18 15:15 02/11/18 15:15 02/11/18 15:15 02/11/18 15:15 02/11/18 15:15 - Laboratory Result Diagrams: 02/11/18 07:58 02/11/18 07:58 Laboratory results interpreted by me: 02/11/18 02/11/18 02/11/18 07:58 07:58 07:58 MCV 98 H ABG pH ABG pO2 ABG Total CO2 ABG O2 Saturation Chloride 108 H AST 55 H Creatine Kinase 231 H CK-MB (CK-2) 8.07 H 02/11/18 08:20 MCV ABG pH 7.34 L ABG pO2 151.3 H ABG Total CO2 25.2 H ABG O2 Saturation 98.8 H Chloride AST Creatine Kinase CK-MB (CK-2) - Diagnostic Test Radiology reviewed: Reports reviewed Discharge - Discharge Clinical Impression: Wheezing, Acute exacerbation of COPD with asthma Condition: Fair Disposition: ADMITTED INPATIENT Admitting Provider: Celsa Unit Admitted: JAGDEEP
[2018-02-11 08:16] LABS: ABSOLUTE LYMPHOCYTES (AUTO) 1.5 10^3/uL (0.5-4.7); ABSOLUTE MONOCYTES (AUTO) 0.8 10^3/uL (0.1-1.4); ABSOLUTE NEUT (AUTO) 5.7 10^3/uL (1.7-8.2); BASOPHILS % (AUTO) 0.3 % (0-2); HEMATOCRIT 42.2 % (36.0-47.0); HEMOGLOBIN 14.2 g/dL (12.0-15.5); LYMPHOCYTES % (AUTO) 19.3 % (13-45); MEAN CORPUSCULAR HEMOGLOBIN 32.9 pg (27.0-33.4); MEAN CORPUSCULAR HGB CONC 33.6 g/dL (32.0-36.0); MEAN CORPUSCULAR VOLUME 98 fl (80-97); MONOCYTES % (AUTO) 9.7 % (3-13); PLATELET COUNT 315 10^3/uL (150-450); RED BLOOD COUNT 4.31 10^6/uL (3.72-5.28); RED CELL DISTRIBUTION WIDTH 13.4 % (11.5-14.0); SEGMENTED NEUTROPHILS % (AUTO) 70.7 % (42-78); TOTAL CELLS COUNTED % (AUTO) 100 %
[2018-02-11 08:26] LABS: ALANINE AMINOTRANSFERASE 30 U/L (9-52); ALBUMIN 4.5 g/dL (3.5-5.0); ALKALINE PHOSPHATASE 38 U/L (38-126); ANION GAP 13 (5-19); ASPARTATE AMINO TRANSFERASE 55 U/L (14-36); BILIRUBIN,DIRECT 0.4 mg/dL (0.0-0.4); BILIRUBIN,TOTAL 0.6 mg/dL (0.2-1.3); BLOOD UREA NITROGEN 16 mg/dL (7-20); CALCIUM 9.5 mg/dL (8.4-10.2); CARBON DIOXIDE 23 mmol/L (22-30); CHLORIDE 108 mmol/L (98-107); CREATINE KINASE 231 U/L (30-135); GLUCOSE 101 mg/dL (75-110); POTASSIUM 4.5 mmol/L (3.6-5.0); TOTAL PROTEIN 8.2 g/dL (6.3-8.2)
[2018-02-11] MEDS ORDERED: ALBUTEROL SULFATE 0.083% NEB 2.5 MG/3 ML AMPUL NEB ONE ×3 (08:31→10:41)
--- NOTE | 2018-02-11 08:34 | RADIOLOGY REPORT (SQ) ---
EXAM DESCRIPTION: CHEST SINGLE VIEW COMPLETED DATE/TIME: 02/11/2018 8:20 am REASON FOR STUDY: diff breathing COMPARISON: Multiples, most recent 11/21/2017 EXAM PARAMETERS: NUMBER OF VIEWS: One view. TECHNIQUE: Single frontal radiographic view of the chest acquired. RADIATION DOSE: NA LIMITATIONS: None. FINDINGS: LUNGS AND PLEURA: Lungs are hyperlucent with flattening in the hemidiaphragms. Chronic bl unting of the costophrenic angles. No focal consolidation, pleural effusion, or pneumothorax. MEDIASTINUM AND HILAR STRUCTURES: No masses. Contour normal. HEART AND VASCULAR STRUCTURES: Heart normal in size. Normal vasculature. BONES: No acute findings. HARDWARE: Incompletely visualized left total shoulder arthroplasty. Metallic clips project over the left hemithorax. OTHER: No other significant finding. IMPRESSION: 1. No acute cardiopulmonary process. 2. Sequela of COPD. TECHNICAL DOCUMENTATION: JOB ID: [id number] [employer]- All Rights Reserved Reading location - IP/workstation name: [email or web address]
[2018-02-11 08:37] LABS: CREATINE KINASE MB 8.07 ng/mL (<4.55); NT PRO BNP 138 pg/mL (5-900)
[2018-02-11 08:38] LABS: TROPONIN I < 0.012 ng/mL
[2018-02-11 09:06] LABS: ARTERIAL BLOOD BASE EXCESS -2.1 mmol/L; ARTERIAL BLOOD H2CO3 1.35 mmol/L (1.05-1.35); ARTERIAL BLOOD HCO3 23.8 mmol/L (20-26); ARTERIAL BLOOD O2 SATURATION 98.8 % (94-98); ARTERIAL BLOOD PH 7.34 (7.35-7.45); ARTERIAL BLOOD PO2 151.3 mmHg (80-100); ARTERIAL BLOOD TOTAL CO2 25.2 mmol/L (21-25)
[2018-02-11] MEDS ORDERED: DOXYCYCLINE HYCLATE INJ 100 MG VIAL IV ONE (09:06)
[2018-02-11 10:22] LABS: ARTERIAL BLOOD BASE EXCESS -2.6 mmol/L; ARTERIAL BLOOD H2CO3 1.34 mmol/L (1.05-1.35); ARTERIAL BLOOD HCO3 23.4 mmol/L (20-26); ARTERIAL BLOOD O2 SATURATION 97.9 % (94-98); ARTERIAL BLOOD PCO2 44.5 mmHg (35-45); ARTERIAL BLOOD PH 7.34 (7.35-7.45); ARTERIAL BLOOD PO2 113.1 mmHg (80-100); ARTERIAL BLOOD TOTAL CO2 24.7 mmol/L (21-25)
[2018-02-11 10:23] LABS: ARTERIAL BLOOD FIO2 40%
--- NOTE | 2018-02-11 12:57 | EKG REPORT ---
SEVERITY:- BORDERLINE ECG - SINUS TACHYCARDIA LA ABNORMALITY : Confirmed by: Harvinder Allison MD 11-Feb-2018 12:56:49
[2018-02-11] MEDS: NORMAL SALINE 1000 ML 1,000 ML IV PRN (14:56)
[2018-02-11] MEDS: METHYLPREDNISOLONE INJ 125 MG/2 ML SDV IV SCH ×2 (14:56→21:32)
[2018-02-11] MEDS: NICOTINE 14 MG/24 HR PATCH.TD24 TD SCH (15:08)
[2018-02-11] MEDS: LEVALBUTEROL HCL NEB 1.25 MG/3 ML AMPUL NEB SCH ×2 (16:50→20:52)
[2018-02-11] MEDS ORDERED: BENZONATATE 100 MG CAPSULE PO PRN (17:18)
[2018-02-11] MEDS: T PO SCH (17:45)
[2018-02-11] MEDS ORDERED: (PENDING PHARMACY ID) (Azelastine Hcl [Azelastine Hcl] 2 SPRAY) NASL SCH (18:00)
--- NOTE | 2018-02-11 19:40 | PDOC H&P ---
History of Present Illness Admission Date/PCP: 02/11/18 09:40 LUKASZ ERNIEUNKKIM Patient complains of: Difficulty with breathing History of Present Illness: ARIELLA JUAREZ is a 52 year old female known to my practice who presented to the ED with listed complain. She was recently seen at the office for similar complain and diagnosed with acute bronchitis, started on Augmentin and Methylprednisolone tapering regimen. She claimed compliance with medications but due to worsening difficulty with breathing presented to ED. She continue to experience minimally productive coughing, wheezing and shortness of breath with minimal exertion. She denied any fever or chills. No sinus or nasal congestion. She denied ongoing smoking but usually smoke about 1/2 PPD. No associated chest pain but reported that her heart was racing. Her morbidities include Hypertension, Congestive Heart Failure, Hyperlipidemia, Asthma, COPD, Stroke with minimal left sided paresis, Bilateral breast cancer s/p bilateral mastectomy, Gastroesophageal Reflux Disease, Hiatal Hernia, Nicotine dependence and depression. She was advised hospitalization due to her minimal response of outpatient management and ED management with bronchodilators. Past Medical History Cardiac Medical History: Reports: Congestive Heart Failure, Hyperlipidema Denies: Coronary Artery Disease, Myocardial Infarction, Hypertension Pulmonary Medical History: Reports: Asthma, Bronchitis, Chronic Obstructive Pulmonary Disease (COPD), Pneumonia Denies: Respiratory Failure, Sleep Apnea, Tuberculosis Neurological Medical History: Denies: Seizures Endocrine Medical History: Malignancy Medical History: Reports: Breast Cancer GI Medical History: Reports: Gastroesophageal Reflux Disease, Hiatal Hernia Musculoskeltal Medical History: Denies: Arthritis Psychiatric Medical History: Reports: Depression Denies: Dementia Hematology: Denies: Anemia Past Surgical History Past Surgical History: Reports: Mastectomy - bilat 2010 Denies: Hysterectomy, Pacemaker Social History Lives with: Family Smoking Status: Current Every Day Smoker Cigarettes Packs Per Day: 1 Last Time Smoked: 02/08/2018 Frequency of Alcohol Use: Social Hx Recreational Drug Use: No Drugs: None Hx Prescription Drug Abuse: No - Advance Directive Resuscitation Status: Full Code Family History Family History: Reviewed & Not Pertinent Parental Family History Reviewed: Yes Children Family History Reviewed: Yes Sibling(s) Family History Reviewed.: Yes Medication/Allergy Home Medications: Albuterol Sulfate [Proair HFA Inhalation Aerosol 8.5 gm MDI] 1 puff IH Q4HP PRN 02/11/18 Anastrozole [Arimidex 1 mg Tablet] 1 mg PO DAILY 02/11/18 Azelastine HCl 2 spray NASL BID 02/11/18 Benzonatate [Tessalon Perles 100 mg Capsule] 200 mg PO TIDP PRN 02/11/18 Budesonide/Formoterol Fumarate [Symbicort 160-4.5 Mcg Inhaler] 2 puff IH Q12 Lansoprazole [Prevacid] 30 mg PO DAILY 02/11/18 Linaclotide [Linzess] 14 mcg PO DAILY 02/11/18 Lisinopril [Prinivil] 20 mg PO DAILY 02/11/18 Megestrol Acetate 20 ml PO DAILY 02/11/18 Montelukast Sodium [Singulair 10 mg Tablet] 10 mg PO QHS 02/11/18 Rivaroxaban [Xarelto] 20 mg PO WSUPPER 02/11/18 Tiotropium [place] [Spiriva Handihaler 5 Cap/Kit (18 Mcg/Cap)] 1 puff IH DAILY 02/11/18 Allergies/Adverse Reactions: prednisone [Prednisone] Adverse Reaction (Intermediate, Verified 11/21/17 18:46) Review of Systems Constitutional: ABSENT: chills, fever(s), headache(s), weight gain, weight loss Eyes: ABSENT: visual disturbances Ears: ABSENT: hearing changes Nose, Mouth, and Throat: ABSENT: as per HPI, headache(s), mouth pain, sore throat, vertigo, other Cardiovascular: PRESENT: dyspnea on exertion Respiratory: PRESENT: cough, dyspnea Gastrointestinal: ABSENT: abdominal pain, constipation, diarrhea, hematemesis, hematochezia, nausea, vomiting Genitourinary: ABSENT: dysuria, hematuria Integumentary: ABSENT: rash, wounds Neurological: PRESENT: weakness - left sided related to prior stroke. ABSENT: abnormal gait, abnormal speech, confusion, dizziness, focal weakness, syncope Psychiatric: ABSENT: anxiety, depression, homidical ideation, suicidal ideation Endocrine: ABSENT: cold intolerance, heat intolerance, polydipsia, polyuria Hematologic/Lymphatic: ABSENT: easy bleeding, easy bruising, lymphadenopathy Physical Exam Vital Signs: Temp Pulse Resp BP Pulse Ox 97.8 F 120 H 24 H 132/93 H 100 02/11/18 15:15 02/11/18 15:15 02/11/18 16:56 02/11/18 15:15 02/11/18 15:15 Intake & Output 02/10/18 02/11/18 02/12/18 06:59 06:59 06:59 Intake Total 222 Balance 222 Weight 63.4 kg General appearance: PRESENT: severe distress - currently on BiPAP support Head exam: PRESENT: atraumatic, normocephalic Eye exam: PRESENT: conjunctiva pink, EOMI, PERRLA. ABSENT: scleral icterus Ear exam: PRESENT: normal external ear exam Mouth exam: PRESENT: moist - fairly moist Teeth exam: PRESENT: edentulous - dentures in use Throat exam: ABSENT: post pharyngeal erythema, tonsillar erythema, tonsillar exudate, tonsillogmegaly, other Neck exam: PRESENT: full ROM. ABSENT: carotid bruit, JVD, lymphadenopathy, thyromegaly Respiratory exam: PRESENT: accessory muscle use, decreased breath sounds, prolonged expiratory phas, rhonchi, tachypnea, wheezes Cardiovascular exam: PRESENT: tachycardia Pulses: PRESENT: normal dorsalis pedis pul, +2 pedal pulses bilateral Vascular exam: PRESENT: normal capillary refill. ABSENT: pallor GI/Abdominal exam: PRESENT: normal bowel sounds, soft. ABSENT: distended, guarding, mass, organolmegaly, rebound, tenderness Rectal exam: PRESENT: deferred Extremities exam: ABSENT: pedal edema Musculoskeletal exam: PRESENT: normal inspection Neurological exam: PRESENT: alert, awake, oriented to person, oriented to place , oriented to time, oriented to situation, CN II-XII grossly intact. ABSENT: motor sensory deficit Psychiatric exam: PRESENT: anxious Skin exam: PRESENT: dry, intact, warm. ABSENT: cyanosis, rash Results Laboratory Results: I reviewed her lab results on [email or web address] and form significant part of my medical decision making on the case. 02/11/18 10:01 Carbonic Acid 1.34 HCO3/H2CO3 Ratio 17:1 ABG pH 7.34 L ABG pCO2 44.5 ABG pO2 113.1 H ABG HCO3 23.4 ABG O2 Saturation 97.9 ABG Base Excess -2.6 FiO2 40% Impressions: Chest X-Ray 02/11/18 07:48 IMPRESSION: 1. No acute cardiopulmonary process. 2. Sequela of COPD. Assessment & Plan - Diagnosis (1) Acute exacerbation of COPD with asthma Is this a current diagnosis for this admission?: Yes Plan: See admitting attending physician orders. (2) Cigarette smoker one half pack a day or less Is this a current diagnosis for this admission?: Yes Plan: See admitting attending physician orders. (3) Essential hypertension Is this a current diagnosis for this admission?: Yes Plan: See admitting attending physician orders. (4) HLD (hyperlipidemia) Qualifiers: Hyperlipidemia type: unspecified Qualified Code(s): E78.5 - Hyperlipidemia , unspecified Is this a current diagnosis for this admission?: Yes Plan: See admitting attending physician orders. (5) CVA, old, hemiparesis Is this a current diagnosis for this admission?: Yes Plan: See admitting attending physician orders. (6) Seasonal allergic rhinitis Qualifiers: Allergic rhinitis trigger: unspecified Qualified Code(s): J30.2 - Other seasonal allergic rhinitis Is this a current diagnosis for this admission?: Yes Plan: See admitting attending physician orders. (7) GERD (gastroesophageal reflux disease) Qualifiers: Esophagitis presence: without esophagitis Qualified Code(s): K21.9 - Gastro -esophageal reflux disease without esophagitis Is this a current diagnosis for this admission?: Yes Plan: See admitting attending physician orders. (8) Depression Qualifiers: Depression Type: unspecified Qualified Code(s): F32.9 - Major depressive disorder, single episode, unspecified Is this a current diagnosis for this admission?: Yes Plan: See admitting attending physician orders. (9) Status post bilateral mastectomy Is this a current diagnosis for this admission?: Yes Plan: See admitting attending physician orders. - Time Time Spent: 50 to 70 Minutes Medications reviewed and adjusted accordingly: Yes Anticipated discharge: Home with Homehealth Within: Other - Inpatient Certification Based on my medical assessment, after consideration of the patient's comorbidities, presenting symptoms, or acuity I expect that the services needed warrant INPATIENT care.: Yes I certify that my determination is in accordance with my understanding of Medicare's requirements for reasonable and necessary INPATIENT services [42 CFR 412.3e].: Yes Medical Necessity: Need Close Monitoring Due to Risk of Patient Decompensation, Need For IV Fluids, Need For Continuous Telemetry Monitoring, Need for Nebulizer Therapy and Monitoring of Response, Risk of Complication if Not Cared For in Hospital Post Hospital Care: D/C [employer] Documentation - Plan Summary Plan Summary: See admitting attending physician orders.
[2018-02-11] MEDS ORDERED: DILTIAZEM HCL 30 MG TABLET PO ONE (20:00)
[2018-02-11] MEDS: MONTELUKAST SODIUM 10 MG TABLET PO SCH (21:31)
[2018-02-11] MEDS ORDERED: BUDESONIDE/FORMOTEROL 160-4.5 MCG 60 PUFF/6 GM MDI IH SCH (22:00)
[2018-02-12] MEDS: DILTIAZEM HCL 30 MG TABLET PO SCH ×4 (00:33→17:29)
[2018-02-12] MEDS: LEVALBUTEROL HCL NEB 1.25 MG/3 ML AMPUL NEB SCH ×4 (02:45→21:22)
[2018-02-12] MEDS: METHYLPREDNISOLONE INJ 125 MG/2 ML SDV IV SCH ×3 (06:58→22:38)
[2018-02-12] MEDS: ENOXAPARIN SODIUM INJ 40 MG/0.4 ML DISP.SYRIN SUBCUT SCH (06:59)
[2018-02-12] MEDS: LANSOPRAZOLE 30 MG TAB.RAP.DR PO SCH (06:59)
[2018-02-12] MEDS: NORMAL SALINE 1000 ML 1,000 ML IV PRN ×2 (07:05→20:42)
[2018-02-12] MEDS ORDERED: LINACLOTIDE PO SCH (10:00)
[2018-02-12] MEDS ORDERED: LISINOPRIL 10 MG TABLET PO SCH (10:00)
[2018-02-12] MEDS: NICOTINE 14 MG/24 HR PATCH.TD24 TD SCH (11:16)
[2018-02-12] MEDS: MEGESTROL ACETATE SUSP 400 MG/10 ML UDCUP PO SCH (11:17)
[2018-02-12] MEDS: ANASTROZOLE 1 MG TABLET PO SCH (11:17)
[2018-02-12] MEDS: TIOTROPIUM BROMIDE DPI 5 CAP/KIT (18 MCG/CAP) IH SCH (11:18)
[2018-02-12] MEDS: T PO SCH (17:29)
[2018-02-12] MEDS ORDERED: MAGNESIUM SULFATE INJ 8 MEQ/2 ML IV ONE ×2 (18:59→20:28)
--- NOTE | 2018-02-12 19:07 | PDOC PROGRESS REPORT ---
Subjective Progress Note for:: 02/12/18 Subjective:: Patient continue to experience difficulty with breathing with minimal exertion. No chest pain. No nausea or vomiting. No fever or chills. Reason For Visit: WHEEZING,CHRONIC OBSTRUCTIVE ASTHMA WITH EXACERBAT Physical Exam Vital Signs: Temp Pulse Resp BP Pulse Ox 97.5 F 109 H 25 H 122/92 H 100 02/12/18 16:01 02/12/18 16:01 02/12/18 16:01 02/12/18 16:01 02/12/18 16:01 Intake & Output 02/11/18 02/12/18 02/13/18 06:59 06:59 06:59 Intake Total 1222 75 Balance 1222 75 Weight 65 kg General appearance: PRESENT: severe distress Head exam: PRESENT: atraumatic, normocephalic Eye exam: PRESENT: conjunctiva pink, EOMI, PERRLA. ABSENT: scleral icterus Ear exam: PRESENT: normal external ear exam Respiratory exam: PRESENT: decreased breath sounds, prolonged expiratory phas, rhonchi, tachypnea, wheezes Cardiovascular exam: PRESENT: tachycardia Vascular exam: PRESENT: normal capillary refill. ABSENT: pallor GI/Abdominal exam: PRESENT: normal bowel sounds, soft. ABSENT: distended, guarding, mass, organolmegaly, rebound, tenderness Extremities exam: PRESENT: pedal edema Musculoskeletal exam: PRESENT: normal inspection Neurological exam: PRESENT: alert, awake, oriented to person, oriented to place , oriented to time, oriented to situation, CN II-XII grossly intact. ABSENT: motor sensory deficit Psychiatric exam: PRESENT: agitated Skin exam: PRESENT: dry, intact, warm. ABSENT: cyanosis, rash Results Impressions: Chest X-Ray 02/11/18 07:48 IMPRESSION: 1. No acute cardiopulmonary process. 2. Sequela of COPD. Assessment & Plan - Diagnosis (1) Acute exacerbation of COPD with asthma Is this a current diagnosis for this admission?: Yes (2) Cigarette smoker one half pack a day or less Is this a current diagnosis for this admission?: Yes (3) Essential hypertension Is this a current diagnosis for this admission?: Yes (4) HLD (hyperlipidemia) Qualifiers: Hyperlipidemia type: unspecified Qualified Code(s): E78.5 - Hyperlipidemia , unspecified Is this a current diagnosis for this admission?: Yes (5) CVA, old, hemiparesis Is this a current diagnosis for this admission?: Yes (6) Seasonal allergic rhinitis Qualifiers: Allergic rhinitis trigger: unspecified Qualified Code(s): J30.2 - Other seasonal allergic rhinitis Is this a current diagnosis for this admission?: Yes (7) GERD (gastroesophageal reflux disease) Qualifiers: Esophagitis presence: without esophagitis Qualified Code(s): K21.9 - Gastro -esophageal reflux disease without esophagitis Is this a current diagnosis for this admission?: Yes (8) Depression Qualifiers: Depression Type: unspecified Qualified Code(s): F32.9 - Major depressive disorder, single episode, unspecified Is this a current diagnosis for this admission?: Yes (9) Status post bilateral mastectomy Is this a current diagnosis for this admission?: Yes - Time Time Spent with patient: 25-34 minutes Medications reviewed and adjusted accordingly: Yes Anticipated discharge: Home with Homehealth Within: Other - Inpatient Certification Based on my medical assessment, after consideration of the patient's comorbidities, presenting symptoms, or acuity I expect that the services needed warrant INPATIENT care.: Yes I certify that my determination is in accordance with my understanding of Medicare's requirements for reasonable and necessary INPATIENT services [42 CFR 412.3e].: Yes Medical Necessity: Need Close Monitoring Due to Risk of Patient Decompensation, Need For IV Fluids, Need For Continuous Telemetry Monitoring, Need for Nebulizer Therapy and Monitoring of Response, Risk of Complication if Not Cared For in Hospital 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
[2018-02-12] MEDS ORDERED: FUROSEMIDE 20 MG TABLET PO ONE (19:45)
[2018-02-12] MEDS ORDERED: RACEPINEPHRINE HCL 2.25% NEB 0.5 ML AMPUL NEB ONE (19:45)
[2018-02-12] MEDS ORDERED: MAGNESIUM SULFATE/D5W 1 GM/100 ML RTUPB IV ONE (19:45)
[2018-02-12] MEDS: MONTELUKAST SODIUM 10 MG TABLET PO SCH (22:38)
[2018-02-13] MEDS: DILTIAZEM HCL 30 MG TABLET PO SCH ×5 (01:04→23:39)
[2018-02-13] MEDS: LEVALBUTEROL HCL NEB 1.25 MG/3 ML AMPUL NEB SCH ×4 (02:13→20:36)
[2018-02-13] MEDS: ENOXAPARIN SODIUM INJ 40 MG/0.4 ML DISP.SYRIN SUBCUT SCH (05:36)
[2018-02-13] MEDS: LANSOPRAZOLE 30 MG TAB.RAP.DR PO SCH (05:36)
[2018-02-13] MEDS: METHYLPREDNISOLONE INJ 125 MG/2 ML SDV IV SCH ×3 (05:36→21:20)
[2018-02-13 06:06] LABS: ABSOLUTE LYMPHOCYTES (AUTO) 0.8 10^3/uL (0.5-4.7); ABSOLUTE MONOCYTES (AUTO) 0.5 10^3/uL (0.1-1.4); ABSOLUTE NEUT (AUTO) 6.4 10^3/uL (1.7-8.2); BASOPHILS % (AUTO) 0.1 % (0-2); HEMATOCRIT 38.4 % (36.0-47.0); HEMOGLOBIN 12.7 g/dL (12.0-15.5); LYMPHOCYTES % (AUTO) 10.7 % (13-45); MEAN CORPUSCULAR HEMOGLOBIN 32.5 pg (27.0-33.4); MEAN CORPUSCULAR VOLUME 98 fl (80-97); MONOCYTES % (AUTO) 6.5 % (3-13); PLATELET COUNT 275 10^3/uL (150-450); RED CELL DISTRIBUTION WIDTH 13.3 % (11.5-14.0); SEGMENTED NEUTROPHILS % (AUTO) 82.7 % (42-78); TOTAL CELLS COUNTED % (AUTO) 100 %; WHITE BLOOD COUNT 7.8 10^3/uL (4.0-10.5)
[2018-02-13 06:25] LABS: ALANINE AMINOTRANSFERASE 72 U/L (9-52); ALBUMIN 3.7 g/dL (3.5-5.0); ALKALINE PHOSPHATASE 32 U/L (38-126); ANION GAP 11 (5-19); ASPARTATE AMINO TRANSFERASE 56 U/L (14-36); BILIRUBIN,DIRECT 0.2 mg/dL (0.0-0.4); BILIRUBIN,TOTAL 0.4 mg/dL (0.2-1.3); BLOOD UREA NITROGEN 22 mg/dL (7-20); CALCIUM 9.1 mg/dL (8.4-10.2); CARBON DIOXIDE 28 mmol/L (22-30); CHLORIDE 103 mmol/L (98-107); GLUCOSE 108 mg/dL (75-110); POTASSIUM 4.4 mmol/L (3.6-5.0); SODIUM 142.4 mmol/L (137-145); TOTAL PROTEIN 6.6 g/dL (6.3-8.2)
[2018-02-13] MEDS: NICOTINE 14 MG/24 HR PATCH.TD24 TD SCH (09:43)
[2018-02-13] MEDS: ANASTROZOLE 1 MG TABLET PO SCH (09:43)
[2018-02-13] MEDS: MEGESTROL ACETATE SUSP 400 MG/10 ML UDCUP PO SCH (09:43)
[2018-02-13] MEDS: TIOTROPIUM BROMIDE DPI 5 CAP/KIT (18 MCG/CAP) IH SCH (09:43)
[2018-02-13] MEDS: FUROSEMIDE 20 MG TABLET PO SCH (09:43)
[2018-02-13] MEDS: NORMAL SALINE 1000 ML 1,000 ML IV PRN (13:19)
[2018-02-13] MEDS: T PO SCH (17:11)
[2018-02-13] MEDS: MONTELUKAST SODIUM 10 MG TABLET PO SCH (21:20)
[2018-02-13] MEDS ORDERED: ALPRAZOLAM 0.25 MG TABLET PO ONE (22:00)
--- NOTE | 2018-02-13 22:22 | PDOC PROGRESS REPORT ---
Subjective Progress Note for:: 02/13/18 Subjective:: Patient continue to experience difficulty with breathing with minimal exertion. No chest pain. No nausea or vomiting. No fever or chills. Reason For Visit: WHEEZING,CHRONIC OBSTRUCTIVE ASTHMA WITH EXACERBAT Physical Exam Vital Signs: Temp Pulse Resp BP Pulse Ox 97.7 F 95 23 H 151/82 H 100 02/13/18 19:22 02/13/18 20:36 02/13/18 20:36 02/13/18 19:22 02/13/18 20:36 Intake & Output 02/12/18 02/13/18 02/14/18 06:59 06:59 06:59 Intake Total 1222 1974 143 Balance 1221974 143 Weight 65 kg 65.5 kg Physical Exam: General appearance: PRESENT: severe distress Head exam: PRESENT: atraumatic, normocephalic Eye exam: PRESENT: conjunctiva pink, EOMI, PERRLA. ABSENT: scleral icterus Ear exam: PRESENT: normal external ear exam Respiratory exam: PRESENT: decreased breath sounds, prolonged expiratory phase, rhonchi, tachypnea, wheezes Cardiovascular exam: PRESENT: tachycardia Vascular exam: PRESENT: normal capillary refill. ABSENT: pallor GI/Abdominal exam: PRESENT: normal bowel sounds, soft. ABSENT: distended, guarding, mass, organomegaly, rebound, tenderness Extremities exam: PRESENT: pedal edema Musculoskeletal exam: PRESENT: normal inspection Neurological exam: PRESENT: alert, awake, oriented to person, oriented to place , oriented to time, oriented to situation, CN II-XII grossly intact. ABSENT: motor sensory deficit Psychiatric exam: PRESENT: agitated Skin exam: PRESENT: dry, intact, warm. ABSENT: cyanosis, rash Results Laboratory Results: 02/13/18 05:28 02/13/18 05:28 02/13/18 02/13/18 05:28 05:28 WBC 7.8 RBC 3.90 Hgb 12.7 Hct 38.4 MCV 98 H MCH 32.5 MCHC 33.0 RDW 13.3 Plt Count 275 Seg Neutrophils % 82.7 H Lymphocytes % 10.7 L Monocytes % 6.5 Eosinophils % 0.0 Basophils % 0.1 Absolute Neutrophils 6.4 Absolute Lymphocytes 0.8 Absolute Monocytes 0.5 Absolute Eosinophils 0.0 Absolute Basophils 0.0 Sodium 142.4 Potassium 4.4 Chloride 103 Carbon Dioxide 28 Anion Gap 11 BUN 22 H Creatinine 0.87 Est GFR ( Amer) > 60 Est GFR (Non-Af Amer) > 60 Glucose 108 Calcium 9.1 Total Bilirubin 0.4 AST 56 H ALT 72 H Alkaline Phosphatase 32 L Total Protein 6.6 Albumin 3.7 02/13/18 17:31 Troponin I < 0.012 Impressions: Chest X-Ray 02/11/18 07:48 IMPRESSION: 1. No acute cardiopulmonary process. 2. Sequela of COPD. Assessment & Plan - Diagnosis (1) Acute exacerbation of COPD with asthma Is this a current diagnosis for this admission?: Yes (2) Cigarette smoker one half pack a day or less Is this a current diagnosis for this admission?: Yes (3) Essential hypertension Is this a current diagnosis for this admission?: Yes (4) HLD (hyperlipidemia) Qualifiers: Hyperlipidemia type: unspecified Qualified Code(s): E78.5 - Hyperlipidemia , unspecified Is this a current diagnosis for this admission?: Yes (5) CVA, old, hemiparesis Is this a current diagnosis for this admission?: Yes (6) Seasonal allergic rhinitis Qualifiers: Allergic rhinitis trigger: unspecified Qualified Code(s): J30.2 - Other seasonal allergic rhinitis Is this a current diagnosis for this admission?: Yes (7) GERD (gastroesophageal reflux disease) Qualifiers: Esophagitis presence: without esophagitis Qualified Code(s): K21.9 - Gastro -esophageal reflux disease without esophagitis Is this a current diagnosis for this admission?: Yes (8) Depression Qualifiers: Depression Type: unspecified Qualified Code(s): F32.9 - Major depressive disorder, single episode, unspecified Is this a current diagnosis for this admission?: Yes (9) Status post bilateral mastectomy Is this a current diagnosis for this admission?: Yes - Time Time Spent with patient: 25-34 minutes Medications reviewed and adjusted accordingly: Yes Anticipated discharge: Home with Homehealth Within: Other - Inpatient Certification Based on my medical assessment, after consideration of the patient's comorbidities, presenting symptoms, or acuity I expect that the services needed warrant INPATIENT care.: Yes I certify that my determination is in accordance with my understanding of Medicare's requirements for reasonable and necessary INPATIENT services [42 CFR 412.3e].: Yes Medical Necessity: Need Close Monitoring Due to Risk of Patient Decompensation, Need For IV Fluids, Need For Continuous Telemetry Monitoring, Need for Nebulizer Therapy and Monitoring of Response, Risk of Complication if Not Cared For in Hospital Post Hospital Care: D/C Cigar Head Puncher 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
--- NOTE | 2018-02-13 22:30 | EKG REPORT ---
SEVERITY:- ABNORMAL ECG - SINUS TACHYCARDIA ATRIAL PREMATURE COMPLEX NONSPECIFIC INTRAVENTRICULAR CONDUCTION DELAY BORDERLINE R WAVE PROGRESSION, ANTERIOR LEADS ST DEPRESSION, CONSIDER ISCHEMIA, INF LEADS VS LVH : Confirmed by: Otilio Lamb 13-Feb-2018 22:29:59
[2018-02-13] MEDS ORDERED: HALOPERIDOL 0.5 MG TABLET ONE (23:30)
[2018-02-13] MEDS: HALOPERIDOL 0.5 MG TABLET PO SCH (23:40)
[2018-02-14] MEDS ORDERED: METHYLPREDNISOLONE INJ 125 MG/2 ML SDV IV SCH
[2018-02-14] MEDS: LEVALBUTEROL HCL NEB 1.25 MG/3 ML AMPUL NEB SCH ×6 (00:43→20:46)
[2018-02-14] MEDS: NORMAL SALINE 1000 ML 1,000 ML IV PRN ×3 (01:05→22:14)
[2018-02-14] MEDS: METHYLPREDNISOLONE INJ 125 MG/2 ML SDV IV SCH ×3 (05:58→17:46)
[2018-02-14] MEDS: DILTIAZEM HCL 30 MG TABLET PO SCH ×3 (05:58→17:46)
[2018-02-14] MEDS: LANSOPRAZOLE 30 MG TAB.RAP.DR PO SCH (05:58)
[2018-02-14] MEDS: HALOPERIDOL 0.5 MG TABLET PO SCH (09:26)
[2018-02-14] MEDS: TIOTROPIUM BROMIDE DPI 5 CAP/KIT (18 MCG/CAP) IH SCH (09:26)
[2018-02-14] MEDS: FUROSEMIDE 20 MG TABLET PO SCH (09:27)
[2018-02-14] MEDS: ANASTROZOLE 1 MG TABLET PO SCH (09:27)
[2018-02-14] MEDS: NICOTINE 14 MG/24 HR PATCH.TD24 TD SCH (09:27)
[2018-02-14] MEDS: T PO SCH (17:45)
--- NOTE | 2018-02-14 19:12 | PDOC PROGRESS REPORT ---
Subjective Progress Note for:: 02/14/18 Subjective:: Patient's work of breathing remain elevated with tachypnea, tachycardia, anxiety and continue audible wheezing. She denied chest pain. No nausea or vomiting but unable to eat due to desaturation off BiPAP support. Reason For Visit: WHEEZING,CHRONIC OBSTRUCTIVE ASTHMA WITH EXACERBAT Physical Exam Vital Signs: Temp Pulse Resp BP Pulse Ox 97.7 F 105 H 27 H 143/88 H 99 02/14/18 15:20 02/14/18 16:57 02/14/18 16:57 02/14/18 15:20 02/14/18 16:57 Intake & Output 02/13/18 02/14/18 02/15/18 06:59 06:59 06:59 Intake Total 19740 1300 Balance 1974 2669 1300 Weight 65.5 kg 66.9 kg Physical Exam: General appearance: PRESENT: severe distress Head exam: PRESENT: atraumatic, normocephalic Eye exam: PRESENT: conjunctiva pink, EOMI, PERRLA. ABSENT: scleral icterus Ear exam: PRESENT: normal external ear exam Respiratory exam: PRESENT: decreased breath sounds, prolonged expiratory phase, rhonchi, tachypnea, wheezes Cardiovascular exam: PRESENT: tachycardia Vascular exam: PRESENT: normal capillary refill. ABSENT: pallor GI/Abdominal exam: PRESENT: normal bowel sounds, soft. ABSENT: distended, guarding, mass, organomegaly, rebound, tenderness Extremities exam: PRESENT: pedal edema Musculoskeletal exam: PRESENT: normal inspection Neurological exam: PRESENT: alert, awake, oriented to person, oriented to place , oriented to time, oriented to situation, CN II-XII grossly intact. ABSENT: motor sensory deficit Psychiatric exam: PRESENT: agitated Skin exam: PRESENT: dry, intact, warm. ABSENT: cyanosis, rash Results Laboratory Results: 02/13/18 05:28 02/13/18 05:28 02/13/18 17:31 Troponin I < 0.012 Impressions: Chest X-Ray 02/11/18 07:48 IMPRESSION: 1. No acute cardiopulmonary process. 2. Sequela of COPD. Assessment & Plan - Diagnosis (1) Acute exacerbation of COPD with asthma Is this a current diagnosis for this admission?: Yes (2) Cigarette smoker one half pack a day or less Is this a current diagnosis for this admission?: Yes (3) Essential hypertension Is this a current diagnosis for this admission?: Yes (4) HLD (hyperlipidemia) Qualifiers: Hyperlipidemia type: unspecified Qualified Code(s): E78.5 - Hyperlipidemia , unspecified Is this a current diagnosis for this admission?: Yes (5) CVA, old, hemiparesis Is this a current diagnosis for this admission?: Yes (6) Seasonal allergic rhinitis Qualifiers: Allergic rhinitis trigger: unspecified Qualified Code(s): J30.2 - Other seasonal allergic rhinitis Is this a current diagnosis for this admission?: Yes (7) GERD (gastroesophageal reflux disease) Qualifiers: Esophagitis presence: without esophagitis Qualified Code(s): K21.9 - Gastro -esophageal reflux disease without esophagitis Is this a current diagnosis for this admission?: Yes (8) Depression Qualifiers: Depression Type: unspecified Qualified Code(s): F32.9 - Major depressive disorder, single episode, unspecified Is this a current diagnosis for this admission?: Yes (9) Status post bilateral mastectomy Is this a current diagnosis for this admission?: Yes - Time Time Spent with patient: 25-34 minutes Medications reviewed and adjusted accordingly: Yes Anticipated discharge: Home with Homehealth Within: Other - Inpatient Certification Based on my medical assessment, after consideration of the patient's comorbidities, presenting symptoms, or acuity I expect that the services needed warrant INPATIENT care.: Yes I certify that my determination is in accordance with my understanding of Medicare's requirements for reasonable and necessary INPATIENT services [42 CFR 412.3e].: Yes Medical Necessity: Need Close Monitoring Due to Risk of Patient Decompensation, Need For IV Fluids, Need For Continuous Telemetry Monitoring, Need for Nebulizer Therapy and Monitoring of Response, Risk of Complication if Not Cared For in Hospital Post Hospital Care: D/C Airline Reservation Agent 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
[2018-02-14] MEDS ORDERED: SUCCINYLCHOLINE CHLORIDE INJ 200 MG/10 ML VIAL IV ONE (19:40)
[2018-02-14] MEDS ORDERED: PHARMACY COMMUNICATION ORDER MC NR ×2 (20:00)
[2018-02-14] MEDS ORDERED: MIDAZOLAM HCL 50 MG/100 ML RTUINJ ONE (20:29)
[2018-02-14] MEDS ORDERED: ALBUTEROL SULFATE 0.083% NEB 2.5 MG/3 ML AMPUL NEB PRN (20:38)
[2018-02-14] MEDS: MIDAZOLAM HCL 50 MG/100 ML RTUINJ IV PRN (20:40)
[2018-02-14] MEDS: PROPOFOL 1,000 MG/100 ML INFUS..BTL IV PRN ×2 (20:40→22:15)
[2018-02-14] MEDS ORDERED: IPRATROPIUM BROMIDE 0.02% NEB 0.5 MG/2.5 ML AMPUL NEB ONE (20:45)
[2018-02-14] MEDS ORDERED: PROPOFOL INJ 200 MG/20 ML VIAL IV ONE (21:00)
--- NOTE | 2018-02-14 21:17 | RADIOLOGY REPORT (SQ) ---
EXAM DESCRIPTION: CHEST SINGLE VIEW COMPLETED DATE/TIME: 02/14/2018 8:15 pm REASON FOR STUDY: ventilator COMPARISON: 02/11/2018 EXAM PARAMETERS: NUMBER OF VIEWS: One view. TECHNIQUE: Single frontal radiographic view of the chest acquired. RADIATION DOSE: NA LIMITATIONS: None. FINDINGS: LUNGS AND PLEURA: Lungs are hyperexpanded. No infiltrate or effusion. No pneumothorax. MEDIASTINUM AND HILAR STRUCTURES: No masses. Contour normal. HEART AND VASCULAR STRUCTURES: Heart normal in size. Normal vasculature. BONES: No acute findings. HARDWARE: Endotracheal tube has its tip about 1 cm above the chadwick. OTHER: No other significant finding. IMPRESSION: Endotracheal tube placement as described. TECHNICAL DOCUMENTATION: JOB ID: [id number] [employer]- All Rights Reserved Reading location - IP/workstation name: [email or web address]
[2018-02-14] MEDS ORDERED: MORPHINE SULFATE 10 MG/ML INJ ONE (21:21)
[2018-02-14 21:26] LABS: APPEARANCE,URINE SLIGHTLY-CLOUDY; BILIRUBIN,URINE NEGATIVE (NEGATIVE); COLOR,URINE YELLOW; GLUCOSE, URINE 50 mg/dL (NEGATIVE); KETONES,URINE NEGATIVE (NEGATIVE); LEUKOCYTE ESTERASE,URINE NEGATIVE (NEGATIVE); NITRITE,URINE NEGATIVE (NEGATIVE); PROTEIN,URINE NEGATIVE (NEGATIVE); URINE SPECIFIC GRAVITY 1.023; UROBILINOGEN,URINE NEGATIVE mg/dL (<2.0)
[2018-02-14] MEDS: IPRATROPIUM BROMIDE 0.02% NEB 0.5 MG/2.5 ML AMPUL NEB SCH (21:58)
[2018-02-14] MEDS ORDERED: LEVOFLOXACIN 500 MG/D5W RTU 500 MG/100 ML RTUPB IV SCH (22:00)
[2018-02-14 22:06] LABS: TROPONIN I < 0.012 ng/mL
[2018-02-14] MEDS: MONTELUKAST SODIUM 10 MG TABLET NG SCH (22:15)
--- NOTE | 2018-02-14 22:21 | EKG REPORT ---
SEVERITY:- ABNORMAL ECG - SINUS OR ECTOPIC ATRIAL TACHYCARDIA ST ELEVATION, PROBABLE INFERIOR INJURY VS ACUTE PERICARDITIS, CCR ANTEROLATERAL INFARCT, ACUTE VS ACUTE PERICARDITIS BORDERLINE PROLONGED QT INTERVAL : Confirmed by: Otilio Lamb 14-Feb-2018 22:21:18
--- NOTE | 2018-02-14 22:41 | OPERATIVE REPORT E ---
Operative Report NAME: ARIELLA JUAREZ : 1965 AGE: 52Y DATE OF SURGERY:02/14/2018 ROOM: 606 PREOPERATIVE DIAGNOSES: 1. ACUTE RESPIRATORY FAILURE REQUIRING INVASIVE MECHANICAL VENTILATION. 2. SEVERE CHRONIC OBSTRUCTIVE PULMONARY DISEASE/ASTHMA EXACERBATION. POSTOPERATIVE DIAGNOSES: 1. ACUTE RESPIRATORY FAILURE REQUIRING INVASIVE MECHANICAL VENTILATION. 2. SEVERE CHRONIC OBSTRUCTIVE PULMONARY DISEASE/ASTHMA EXACERBATION. OPERATION: Endotracheal intubation using endotracheal tube of 7.5. SURGEON: ERICA REAL M.D. MEDICATIONS GIVEN: Include succinylcholine 100 mg IV and propofol 100 mg IV bolus. Anesthesia given by Anesthesia service senior information security consultant. INDICATIONS: Patient is a 52-year-old -[place] female who came in for severe respiratory distress, severe asthma/COPD exacerbation. Brought to the intensive care unit for invasive mechanical ventilation. PROCEDURE: Procedure explained to the patient. A curved laryngoscope blade was used. Vocal cords were visualized. Endotracheal tube size 7.5 was inserted without difficulty, after patient received IV propofol at 100 mg and IV succinylcholine 100 mg. Patient was connected to the ET CO2 monitor. Changes in color were noted. Breath sounds were noted equal in both lungs. Patient was subsequently connected to the ventilator. The ventilator was set at SIMV rate of 20, tidal volume of 400, pressure support of 10, PEEP of 5, FiO2 of 100% and titrated to give saturation of 91% to 94%. No adverse events or complications noted during the endotracheal intubation. DICTATING PHYSICIAN: ERICA REAL MD,ALO,MPH 5233M 6 PHY#: [id number] ID: [id number] JOB#: [id number] ACCT: [id number] cc:ERICA REAL M.D. > MTDGreg
[2018-02-14 22:43] LABS: ARTERIAL BLOOD H2CO3 1.65 mmol/L (1.05-1.35); ARTERIAL BLOOD HCO3 31.4 mmol/L (20-26); ARTERIAL BLOOD O2 SATURATION 99.7 % (94-98); ARTERIAL BLOOD PCO2 54.8 mmHg (35-45); ARTERIAL BLOOD PH 7.38 (7.35-7.45); ARTERIAL BLOOD PO2 339.8 mmHg (80-100); ARTERIAL BLOOD TOTAL CO2 33.1 mmol/L (21-25)
[2018-02-14 22:51] LABS: ARTERIAL BLOOD FIO2 100%
--- NOTE | 2018-02-14 22:54 | RADIOLOGY REPORT (SQ) ---
EXAM DESCRIPTION: CHEST SINGLE VIEW COMPLETED DATE/TIME: 02/14/2018 9:44 pm REASON FOR STUDY: ETT placement; repositioned. COMPARISON: 02/14/2018 EXAM PARAMETERS: NUMBER OF VIEWS: One view. TECHNIQUE: Single frontal radiographic view of the chest acquired. RADIATION DOSE: NA LIMITATIONS: None. FINDINGS: LUNGS AND PLEURA: No opacities, masses or pneumothorax. No pleural effusion. MEDIASTINUM AND HILAR STRUCTURES: No masses. Contour normal. HEART AND VASCULAR STRUCTURES: Heart normal in size. Normal vasculature. BONES: No acute findings. HARDWARE: The endotracheal tube is been withdrawn slightly and is now all about 2 cm above the chadwick . OTHER: No other significant finding. IMPRESSION: Repositioned endotracheal tube. TECHNICAL DOCUMENTATION: JOB ID: [id number] [employer]- All Rights Reserved Reading location - IP/workstation name: [email or web address]
--- NOTE | 2018-02-14 22:56 | CONSULTATION REPORT E ---
Consultation Report NAME: ARIELLA JUAREZ : 1965 AGE: 52Y DATE: 02/14/2018 ROOM: 606 A TO: ERICA REAL M.D. FROM: LUKASZ ORNELAS M.D. Requesting Physician HISTORY OF PRESENT ILLNESS: The patient is a 52-year-old -[place] female who came in about 2 days ago for increased shortness of breath and increased cough with sputum production. Patient is a smoker. The patient was wheezing with chest tightness. The patient was brought down to the ICU tonight because of severe respiratory distress, tachypneic, and tachycardic. The patient was endotracheally intubated by myself with anesthesia support and the patient connected to the ventilator. The patient was noted to have chest tightness, severe wheezing even following her tracheal intubation. The patient was given a nebulizer treatment, Xopenex 1.25 mg and Atrovent 0.5 mg STAT and every 6 hours thereafter. Solu-Medrol IV was also ordered 125 mg every 6 hours. Endotracheal tube secretions were sent. Blood cultures and urine culture was sent. PAST MEDICAL HISTORY: The patient has history of congestive heart failure, hyperlipidemia. No history of coronary artery disease or myocardial infarction. Hypertension history. The patient has history of asthma, bronchitis, and COPD and pneumonia. No history of seizures. The patient has history of breast cancer. History of gastroesophageal reflux, hiatal hernia, and history of depression. SURGICAL HISTORY: Mastectomy bilaterally in 2010. SOCIAL HISTORY: The patient lives with family. Currently smokes about a pack a day. Drinks alcohol occasionally. Denies any illicit drug use. CODE STATUS: The patient's status is full code. FAMILY HISTORY: Unremarkable. HOME MEDICATIONS: 1. Albuterol inhaler. 2. Arimidex. 3. Acetylcysteine nasal spray. 4. Tessalon Perles. 5. Symbicort. 6. Pravastatin. 7. Linzess. 8. Lisinopril. 9. Megace. 10. Singular. 11. Xarelto. 12. Spiriva inhaler. ALLERGIES: Reportedly has adverse reaction to PREDNISONE. REVIEW OF SYSTEMS: CONSTITUTIONAL: No fever or chills. No headache. EYES: No visual changes. No jaundice. EARS, NOSE, AND THROAT: No hearing changes. No ear discharge not. CARDIAC: Dyspnea on exertion. The patient has history of chest pain, angina. RESPIRATORY: Complained about increased shortness of breath with chest tightness and coughing, sputum production, and wheezing. GASTROINTESTINAL: No nausea, vomiting, or diarrhea. GENITOURINARY: No dysuria or hematuria. EXTREMITIES: No joint swelling. No cellulitis. PHYSICAL EXAMINATION: GENERAL: The patient appears to be ventilated, sedated, not in acute respiratory distress. VITAL SIGNS: Temperature 97.5 with T-max of 97.9, heart rate of 121, blood pressure is 150/79, respiration is 30, saturation 100% high top. Currently the patient's heart rate is 106, blood pressure is 100/84, saturation is 97% on FiO2 of 40%, SIMV PRBC with a rate of 20, tidal volume of 400, pressure support of 10, PEEP of 5. EYES: No jaundice or pallor. EARS, NOSE, AND THROAT: No ear drainage noted. No nasal discharge. HEAD AND NECK: No neck swelling. Neck appears supple. CHEST AND LUNGS: Currently no wheezing, no rhonchi, no coarse crackles. CARDIOVASCULAR: S1, S2 distinct. Normal rate and regular rhythm. ABDOMEN: Flabby, positive bowel sounds, soft, nondistended, nontender. EXTREMITIES: No joint swelling, no cellulitis. LABORATORY DATA: CBC done today showed a white count of 7.8, hemoglobin 12.7, hematocrit 38.4, platelet count is 275. Chemistry done today showed sodium is 142, potassium is 4.4, chloride 103, CO2 is 28, BUN is 22, creatinine 0.87, glucose 108, and calcium is 9.1. Total BILI 0.4, direct bilirubin is 0.2. Troponin/cardiac enzymes are pending. ABG following the endotracheal intubation is also pending. IMAGING STUDIES: Chest x-ray showed no pneumothorax. No pleural effusion. The tip of the endotracheal tube appeared to be very close to the chadwick. Endotracheal tube was adjusted, withdrawn by about 2 cm and repeat chest x-ray was ordered. ASSESSMENT: 1. Acute respiratory failure requiring invasive mechanical ventilation. 2. COPD/asthma in acute severe exacerbation. 3. History of heart failure. 4. History of breast cancer, bilateral, status post mastectomy. 4. Tachyarrhythmia. Currently heart rate appeared to be slowing down to 103 and 102. PLAN/RECOMMENDATION: 1. We will continue to optimize ventilator support. 2. We will put patient on IV Versed and IV propofol to keep light sedation. 3. We will give nebulizer treatment, Xopenex 1.25 mg plus Atrovent 0.5 mg every 6 hours around the clock. 4. We will give albuterol every 6 hours in-between Xopenex nebulizer treatment p.r.n. for breakthrough wheezing and chest tightness and shortness of breath. 5. We will continue the Solu-Medrol at 125 mg IV every 6 hours. 6. We will provide GI prophylaxis- prevacid 30 mg every day. 7. We will continue Xarelto 10 mg p.o. daily. 8. We will provide patient with Levaquin at 500 mg IV piggyback once daily. DICTATING PHYSICIAN: ERICA REAL MD,ALO,MPH 5020M 1 PHY#: [id number] ID: [id number] JOB#: [id number] ACCT: [id number] cc:ERICA REAL M.D. > MTDGreg
[2018-02-15] MEDS ORDERED: HALOPERIDOL 0.5 MG TABLET PO SCH
[2018-02-15] MEDS: HALOPERIDOL 0.5 MG TABLET NG SCH ×4 (00:25→18:16)
[2018-02-15] MEDS: METHYLPREDNISOLONE INJ 125 MG/2 ML SDV IV SCH ×4 (00:25→18:16)
[2018-02-15] MEDS: DILTIAZEM HCL 30 MG TABLET NG SCH ×4 (00:26→18:16)
[2018-02-15] MEDS: IPRATROPIUM BROMIDE 0.02% NEB 0.5 MG/2.5 ML AMPUL NEB SCH ×4 (02:32→19:34)
[2018-02-15] MEDS: LEVALBUTEROL HCL NEB 1.25 MG/3 ML AMPUL NEB SCH ×4 (02:32→19:34)
[2018-02-15] MEDS: PROPOFOL 1,000 MG/100 ML INFUS..BTL IV PRN ×3 (03:12→14:16)
[2018-02-15] MEDS: MIDAZOLAM HCL 50 MG/100 ML RTUINJ IV PRN ×3 (03:12→18:18)
[2018-02-15 05:18] LABS: ABSOLUTE LYMPHOCYTES (AUTO) 0.6 10^3/uL (0.5-4.7); ABSOLUTE MONOCYTES (AUTO) 0.4 10^3/uL (0.1-1.4); ABSOLUTE NEUT (AUTO) 4.5 10^3/uL (1.7-8.2); BASOPHILS % (AUTO) 0.2 % (0-2); HEMATOCRIT 33.6 % (36.0-47.0); LYMPHOCYTES % (AUTO) 10.3 % (13-45); MEAN CORPUSCULAR HEMOGLOBIN 32.5 pg (27.0-33.4); MEAN CORPUSCULAR HGB CONC 32.9 g/dL (32.0-36.0); MEAN CORPUSCULAR VOLUME 99 fl (80-97); PLATELET COUNT 219 10^3/uL (150-450); RED CELL DISTRIBUTION WIDTH 12.7 % (11.5-14.0); SEGMENTED NEUTROPHILS % (AUTO) 82.5 % (42-78); TOTAL CELLS COUNTED % (AUTO) 100 %; WHITE BLOOD COUNT 5.5 10^3/uL (4.0-10.5)
[2018-02-15] MEDS: LANSOPRAZOLE 30 MG TAB.RAP.DR NG SCH (05:29)
[2018-02-15 05:40] LABS: ALANINE AMINOTRANSFERASE 73 U/L (9-52); ALBUMIN 2.7 g/dL (3.5-5.0); ALKALINE PHOSPHATASE 24 U/L (38-126); ANION GAP 7 (5-19); ASPARTATE AMINO TRANSFERASE 34 U/L (14-36); BILIRUBIN,DIRECT 0.3 mg/dL (0.0-0.4); BILIRUBIN,TOTAL 0.4 mg/dL (0.2-1.3); BLOOD UREA NITROGEN 24 mg/dL (7-20); CALCIUM 8.3 mg/dL (8.4-10.2); CARBON DIOXIDE 33 mmol/L (22-30); CHLORIDE 103 mmol/L (98-107); CREATINE KINASE 162 U/L (30-135); GLUCOSE 127 mg/dL (75-110); POTASSIUM 3.7 mmol/L (3.6-5.0); SODIUM 142.6 mmol/L (137-145); TOTAL PROTEIN 5.1 g/dL (6.3-8.2)
[2018-02-15 05:46] LABS: CREATINE KINASE MB 8.94 ng/mL (<4.55)
[2018-02-15 05:49] LABS: TROPONIN I < 0.012 ng/mL
--- NOTE | 2018-02-15 08:34 | RADIOLOGY REPORT (SQ) ---
EXAM DESCRIPTION: CHEST SINGLE VIEW COMPLETED DATE/TIME: 02/15/2018 6:13 am REASON FOR STUDY: on ventilator COMPARISON: 02/14/2018 EXAM PARAMETERS: NUMBER OF VIEWS: One view. TECHNIQUE: Single frontal radiographic view of the chest acquired. RADIATION DOSE: NA LIMITATIONS: None. FINDINGS: LUNGS AND PLEURA: Minimal blunting at the left costophrenic angle may represent very tiny pleural effusion. Left base scar atelectasis, unchanged finding. MEDIASTINUM AND HILAR STRUCTURES: No masses. Contour normal. HEART AND VASCULAR STRUCTURES: Heart normal in size. Normal vasculature. BONES: No acute findings. HARDWARE: Stable support tubes. Prior left shoulder arthroplasty. OTHER: Post surgical changes left axilla overlying the right mid chest wall, stable finding. IMPRESSION: 1 No significant interval changes since the prior examination dated 02/14/2018. TECHNICAL DOCUMENTATION: JOB ID: [id number] [employer]- All Rights Reserved Reading location - IP/workstation name: [email or web address]
--- NOTE | 2018-02-15 08:36 | RADIOLOGY REPORT (SQ) ---
EXAM DESCRIPTION: KUB/ABDOMEN (SINGLE VIEW) COMPLETED DATE/TIME: 02/14/2018 8:15 pm REASON FOR STUDY: Check Placement of NG Tube COMPARISON: None. NUMBER OF VIEWS: One view. TECHNIQUE: Supine radiographic image of the abdomen acquired. LIMITATIONS: None. FINDINGS: BOWEL GAS PATTERN: Limited study, normal bowel gas pattern. No dilated loops. CALCIFICATIONS: No suspicious calcifications. SOFT TISSUES: No gross mass or suggestion of organomegaly. HARDWARE: Nasogastric tube, tip is in the body of stomach. BONES: No acute fracture. No worrisome bone lesions. OTHER: No other significant finding. IMPRESSION: 1 Limited study for placement of nasogastric tube. The tip of the tube is in the body o f the stomach. TECHNICAL DOCUMENTATION: JOB ID: [id number] [employer]- All Rights Reserved Reading location - IP/workstation name: [email or web address]
[2018-02-15] MEDS ORDERED: (PENDING PHARMACY ID) (Lansoprazole [Prevacid] 30 MG) PO SCH (10:00)
[2018-02-15] MEDS: NICOTINE 14 MG/24 HR PATCH.TD24 TD SCH (10:28)
[2018-02-15] MEDS: FUROSEMIDE 20 MG TABLET NG SCH (10:28)
[2018-02-15] MEDS: ANASTROZOLE 1 MG TABLET NG SCH (10:29)
[2018-02-15] MEDS: NORMAL SALINE 1000 ML 1,000 ML IV PRN (13:41)
[2018-02-15] MEDS ORDERED: T NG SCH (17:00)
--- NOTE | 2018-02-15 17:52 | PDOC PROGRESS REPORT ---
Subjective Progress Note for:: 02/15/18 Subjective:: Patient is intubated, sedated and vent supported. No reported fever. Remain on relative high supplemental oxygen at 65% at he time f my evaluation this morning. Start ed on IV Levofloxacin since last clinical evaluation. Reason For Visit: WHEEZING,CHRONIC OBSTRUCTIVE ASTHMA WITH EXACERBAT Physical Exam Vital Signs: Temp Pulse Resp BP Pulse Ox 97.0 F 79 20 93/63 L 96 02/15/18 06:00 02/15/18 02:33 02/15/18 05:00 02/15/18 04:51 02/15/18 05:00 Intake & Output 02/14/18 02/15/18 02/16/18 06:59 06:59 06:59 Intake Total 2670 2052 Output Total 990 Balance 2670 1062 Weight 66.9 kg 60.4 kg Physical Exam: Intubated and vent support. Sedated on IV Midazolam. ET OG tubes in situ. Head exam: PRESENT: atraumatic, normocephalic Ear exam: PRESENT: normal external ear exam Mouth exam: PRESENT: moist Respiratory exam: PRESENT: decreased breath sounds, rhonchi, wheezes Cardiovascular exam: PRESENT: RRR. ABSENT: diastolic murmur, rubs, systolic murmur Vascular exam: PRESENT: normal capillary refill. ABSENT: pallor GI/Abdominal exam: PRESENT: normal bowel sounds, soft. ABSENT: distended, guarding, mass, organolmegaly, rebound, tenderness Extremities exam: ABSENT: pedal edema Musculoskeletal exam: PRESENT: normal inspection Neurological exam: PRESENT: altered - sedated on IV Midazolam Skin exam: PRESENT: dry, intact, warm Results Laboratory Results: 02/15/18 04:55 02/15/18 04:55 02/14/18 02/14/18 02/15/18 20:22 22:20 04:55 WBC 5.5 RBC 3.40 L Hgb 11.0 L Hct 33.6 L MCV 99 H MCH 32.5 MCHC 32.9 RDW 12.7 Plt Count 219 Seg Neutrophils % 82.5 H Lymphocytes % 10.3 L Monocytes % 7.0 Eosinophils % 0.0 Basophils % 0.2 Absolute Neutrophils 4.5 Absolute Lymphocytes 0.6 Absolute Monocytes 0.4 Absolute Eosinophils 0.0 Absolute Basophils 0.0 Carbonic Acid 1.65 H HCO3/H2CO3 Ratio 19:1 ABG pH 7.38 ABG pCO2 54.8 H ABG pO2 339.8 H ABG HCO3 31.4 H ABG O2 Saturation 99.7 H ABG Base Excess 5.0 FiO2 100% Sodium Potassium Chloride Carbon Dioxide Anion Gap BUN Creatinine Est GFR ( Amer) Est GFR (Non-Af Amer) Glucose Calcium Total Bilirubin AST ALT Alkaline Phosphatase Total Protein Albumin Urine Color YELLOW Urine Appearance SLIGHTLY-CLOUDY Urine pH 6.0 Ur Specific [place] 1.023 Urine Protein NEGATIVE Urine Glucose (UA) 50 H Urine Ketones NEGATIVE Urine Blood NEGATIVE Urine Nitrite NEGATIVE Ur Leukocyte Esterase NEGATIVE Urine WBC (Auto) 2 Urine RBC (Auto) 10 02/15/18 04:55 WBC RBC Hgb Hct MCV MCH MCHC RDW Plt Count Seg Neutrophils % Lymphocytes % Monocytes % Eosinophils % Basophils % Absolute Neutrophils Absolute Lymphocytes Absolute Monocytes Absolute Eosinophils Absolute Basophils Carbonic Acid HCO3/H2CO3 Ratio ABG pH ABG pCO2 ABG pO2 ABG HCO3 ABG O2 Saturation ABG Base Excess FiO2 Sodium 142.6 Potassium 3.7 Chloride 103 Carbon Dioxide 33 H Anion Gap 7 BUN 24 H Creatinine 0.70 Est GFR ( Amer) > 60 Est GFR (Non-Af Amer) > 60 Glucose 127 H Calcium 8.3 L Total Bilirubin 0.4 AST 34 ALT 73 H Alkaline Phosphatase 24 L Total Protein 5.1 L Albumin 2.7 L Urine Color Urine Appearance Urine pH Ur Specific [place] Urine Protein Urine Glucose (UA) Urine Ketones Urine Blood Urine Nitrite Ur Leukocyte Esterase Urine WBC (Auto) Urine RBC (Auto) 02/13/18 02/14/18 02/14/18 17:31 21:00 21:00 Creatine Kinase 286 H CK-MB (CK-2) 13.80 H Troponin I < 0.012 < 0.012 02/15/18 02/15/18 04:55 04:55 Creatine Kinase 162 H CK-MB (CK-2) 8.94 H Troponin I < 0.012 Assessment & Plan - Diagnosis (1) COPD with respiratory failure, acute Is this a current diagnosis for this admission?: Yes Plan: See attending physician orders. (2) Acute exacerbation of COPD with asthma Is this a current diagnosis for this admission?: Yes (3) Cigarette smoker one half pack a day or less Is this a current diagnosis for this admission?: Yes (4) Essential hypertension Is this a current diagnosis for this admission?: Yes (5) HLD (hyperlipidemia) Qualifiers: Hyperlipidemia type: unspecified Qualified Code(s): E78.5 - Hyperlipidemia , unspecified Is this a current diagnosis for this admission?: Yes (6) CVA, old, hemiparesis Is this a current diagnosis for this admission?: Yes (7) Seasonal allergic rhinitis Qualifiers: Allergic rhinitis trigger: unspecified Qualified Code(s): J30.2 - Other seasonal allergic rhinitis Is this a current diagnosis for this admission?: Yes (8) GERD (gastroesophageal reflux disease) Qualifiers: Esophagitis presence: without esophagitis Qualified Code(s): K21.9 - Gastro -esophageal reflux disease without esophagitis Is this a current diagnosis for this admission?: Yes (9) Depression Qualifiers: Depression Type: unspecified Qualified Code(s): F32.9 - Major depressive disorder, single episode, unspecified Is this a current diagnosis for this admission?: Yes (10) Status post bilateral mastectomy Is this a current diagnosis for this admission?: Yes - Time Time Spent with patient: 25-34 minutes Medications reviewed and adjusted accordingly: Yes Anticipated discharge: Home with Homehealth Within: Other - Inpatient Certification Based on my medical assessment, after consideration of the patient's comorbidities, presenting symptoms, or acuity I expect that the services needed warrant INPATIENT care.: Yes I certify that my determination is in accordance with my understanding of Medicare's requirements for reasonable and necessary INPATIENT services [42 CFR 412.3e].: Yes Medical Necessity: Need Close Monitoring Due to Risk of Patient Decompensation, Need For IV Fluids, Need For Continuous Telemetry Monitoring, Need for Nebulizer Therapy and Monitoring of Response, Need for IV Antibiotics, Risk of Complication if Not Cared For in Hospital Post Hospital Care: D/C Jet Man 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 Taper down supplemental oxygen to keep Oxygen saturation above 95%. Follow up on sputum culture findings. Overall prognosis remain guarded.
[2018-02-15] MEDS ORDERED: LEVOFLOXACIN 750 MG/D5W RTU 750 MG/150 ML RTUPB IV ONE (21:18)
[2018-02-15] MEDS ORDERED: LEVALBUTEROL HCL NEB 1.25 MG/3 ML AMPUL NEB SCH (21:30)
[2018-02-15] MEDS: MONTELUKAST SODIUM 10 MG TABLET NG SCH (22:09)
[2018-02-15 23:00] LABS: INTERNATIONAL RATION (INR) 1.42; PROTHROMBIN TIME 18.1 SEC (11.4-15.4)
[2018-02-15 23:01] LABS: PARTIAL THROMBOPLASTIN TIME 27.9 SEC (23.5-35.8)
--- NOTE | 2018-02-15 23:21 | PROGRESS NOTE E ---
Progress Note NAME: ARIELLA JUAREZ : 1965 AGE: 52Y DATE: 02/15/2018 ROOM: 606 SUBJECTIVE: The patient is a 52-year-old -[place] female who came in with acute respiratory failure requiring invasive mechanical ventilation due to severe COPD/asthma exacerbation. The patient has no fever spikes over the last 24 hours. Has some yellowish-green sputum production this morning. Sputum culture was sent showing gram-negative organisms. Currently on Levaquin 500 mg IV piggyback. There is no vomiting, no diarrhea. The patient tolerated the G-tube feedings. OBJECTIVE: GENERAL: The patient appears sedated, afebrile, not in acute apparent respiratory distress. VITAL SIGNS: Temperature 96.8 with a T-max of 96.8, blood pressure is 110/83, pulse rate is 107, respiration is 20. The patient is on SIMV rate of 20, tidal volume 400, pressure support of 10, PEEP of 5, FiO2 of 35%, saturating about 96%. Peak airway pressure is 37 and the mid ventilation is 7. EYES: No jaundice or pallor. EARS, NOSE, AND THROAT: No ear drainage noted. No nasal discharge. Oral tracheal tube is in place. CHEST AND LUNGS: The patient is still slightly wheezy bilaterally. No coarse crackles noted.. CARDIOVASCULAR: S1, S2 distinct. Normal rate and regular rhythm. ABDOMEN: Flabby, positive bowel sounds, soft, nondistended. EXTREMITIES: No joint swelling, no cellulitis. LABORATORY DATA: CBC done today showed a white count of 5.5, hemoglobin is 11, hematocrit is 33.6, platelet count is 219. Chemistry done today showed sodium 132, potassium 3.7, chloride 103, CO2 of 33, BUN of 24, creatinine 0.7, calcium is 8.3, glucose 137. The troponins were negative, less than 0.012. Total protein is 5.1 and albumin is 2.7. IMAGING STUDIES: Chest x-ray done today showed no pneumonia, lungs hyperinflated, no pleural effusion, no apparent infiltrate. ASSESSMENT: 1. ACUTE RESPIRATORY FAILURE REQUIRING INVASIVE MECHANICAL VENTILATION. 2. SEVERE COPD/ASTHMA EXACERBATION. 3. PNEUMONIA, POSSIBLY EARLY NOT CURRENTLY APPARENT ON THE CHEST X-RAY. HAS POSITIVE SPUTUM CULTURE FOR GRAM-NEGATIVE ORGANISMS. PLAN/RECOMMENDATION: 1. We will increase the dose of Levaquin from 500 mg to 750 mg IV piggyback daily starting tonight. 2. We will increase the dose of the Xopenex nebulizer treatment plus Atrovent nebulizer treatment every 4 hours. 3. We will continue to optimize ventilator support and hemodynamic support. 4. We will continue the Solu-Medrol 125 mg IV every 6 hours. DICTATING PHYSICIAN: ERICA REAL MD,ALO,MPH [id number] PHY#: [id number] ID: [id number] JOB#: [id number] ACCT: [id number] cc: > MTDD
[2018-02-16] MEDS: IPRATROPIUM BROMIDE 0.02% NEB 0.5 MG/2.5 ML AMPUL NEB SCH ×6 (00:36→20:19)
[2018-02-16] MEDS: PROPOFOL 1,000 MG/100 ML INFUS..BTL IV PRN ×4 (01:46→19:51)
[2018-02-16] MEDS: DILTIAZEM HCL 30 MG TABLET NG SCH ×3 (01:49→12:36)
[2018-02-16] MEDS: HALOPERIDOL 0.5 MG TABLET NG SCH ×4 (01:49→18:27)
[2018-02-16] MEDS: METHYLPREDNISOLONE INJ 125 MG/2 ML SDV IV SCH ×5 (01:49→23:01)
[2018-02-16] MEDS: NORMAL SALINE 1000 ML 1,000 ML IV PRN ×2 (03:05→15:07)
[2018-02-16] MEDS: MIDAZOLAM HCL 50 MG/100 ML RTUINJ IV PRN ×2 (03:40→22:57)
[2018-02-16 05:40] LABS: HEMATOCRIT 34.7 % (36.0-47.0); HEMOGLOBIN 11.5 g/dL (12.0-15.5); MEAN CORPUSCULAR HEMOGLOBIN 32.8 pg (27.0-33.4); MEAN CORPUSCULAR VOLUME 99 fl (80-97); PLATELET COUNT 220 10^3/uL (150-450); RED BLOOD COUNT 3.49 10^6/uL (3.72-5.28); RED CELL DISTRIBUTION WIDTH 12.9 % (11.5-14.0); WHITE BLOOD COUNT 7.4 10^3/uL (4.0-10.5)
[2018-02-16 05:45] LABS: ARTERIAL BLOOD BASE EXCESS 9.4 mmol/L; ARTERIAL BLOOD FIO2 50%; ARTERIAL BLOOD H2CO3 1.65 mmol/L (1.05-1.35); ARTERIAL BLOOD HCO3 35.4 mmol/L (20-26); ARTERIAL BLOOD O2 SATURATION 91.7 % (94-98); ARTERIAL BLOOD PCO2 54.8 mmHg (35-45); ARTERIAL BLOOD PH 7.43 (7.35-7.45); ARTERIAL BLOOD PO2 61.4 mmHg (80-100); ARTERIAL BLOOD TOTAL CO2 37.1 mmol/L (21-25)
[2018-02-16 05:48] LABS: ALANINE AMINOTRANSFERASE 68 U/L (9-52); ALBUMIN 2.7 g/dL (3.5-5.0); ALKALINE PHOSPHATASE 21 U/L (38-126); ANION GAP 7 (5-19); ASPARTATE AMINO TRANSFERASE 27 U/L (14-36); BILIRUBIN,DIRECT 0.3 mg/dL (0.0-0.4); BILIRUBIN,TOTAL 0.3 mg/dL (0.2-1.3); BLOOD UREA NITROGEN 24 mg/dL (7-20); CALCIUM 8.5 mg/dL (8.4-10.2); CARBON DIOXIDE 32 mmol/L (22-30); CHLORIDE 103 mmol/L (98-107); GLUCOSE 107 mg/dL (75-110); POTASSIUM 3.7 mmol/L (3.6-5.0); SODIUM 141.6 mmol/L (137-145); TOTAL PROTEIN 5.2 g/dL (6.3-8.2)
[2018-02-16 06:06] LABS: ABSOLUTE LYMPHOCYTES# (MANUAL) 0.3 10^3/uL (0.5-4.7); ABSOLUTE MONOCYTES # (MANUAL) 0.1 10^3/uL (0.1-1.4); BASOPHILS % (MANUAL) 0 % (0-2); EOSINOPHILS % (MANUAL) 0 % (0-6); LYMPHOCYTES % (MANUAL) 4 % (13-45); MONOCYTES % (MANUAL) 2 % (3-13); SEGMENTED NEUTROPHILS % (MAN) 94 % (42-78); TOTAL CELLS COUNTED 100
[2018-02-16 06:07] LABS: PLATELET COMMENT ADEQUATE; PLATELET GIANT PRESENT; PLATELET LARGE PRESENT; SCHISTOCYTES SLIGHT; TOXIC GRANULATION SLIGHT
[2018-02-16] MEDS: LANSOPRAZOLE 30 MG TAB.RAP.DR NG SCH (06:27)
--- NOTE | 2018-02-16 08:58 | RADIOLOGY REPORT (SQ) ---
EXAM DESCRIPTION: CHEST SINGLE VIEW COMPLETED DATE/TIME: 02/16/2018 6:30 am REASON FOR STUDY: on ventilator COMPARISON: 02/15/2018 NUMBER OF VIEWS: One view. TECHNIQUE: Single frontal radiographic image of the chest acquired. LIMITATIONS: None. FINDINGS: LUNGS AND PLEURA: COPD. No evidence of focal consolidation or pneumothorax. MEDIASTINUM AND HEART: Stable heart size and mediastinal structures. SUPPORT DEVICES: Appropriate location without change. BONY STRUCTURES: No acute findings. HARDWARE: None. OTHER: No other significant finding. IMPRESSION: STABLE APPEARANCE OF THE CHEST. SUPPORT DEVICES UNCHANGED. Reading location - IP/workstation name: [email or web address]
[2018-02-16] MEDS: MORPHINE SULFATE 10 MG/ML INJ IV PRN ×2 (10:32→19:49)
[2018-02-16] MEDS: NICOTINE 14 MG/24 HR PATCH.TD24 TD SCH (10:33)
[2018-02-16] MEDS: ANASTROZOLE 1 MG TABLET NG SCH (12:32)
[2018-02-16] MEDS: FUROSEMIDE 20 MG TABLET NG SCH (12:34)
[2018-02-16] MEDS ORDERED: DILTIAZEM HCL 30 MG TABLET NG ONE (14:00)
--- NOTE | 2018-02-16 17:04 | PDOC PROGRESS REPORT ---
Subjective Progress Note for:: 02/16/18 Subjective:: Patient remain intubated and vent supported. Gastric residual on enteral tube feeding remain high and she is currently on gastric intermittent suction. No reported fever. Reason For Visit: WHEEZING,CHRONIC OBSTRUCTIVE ASTHMA WITH EXACERBAT Physical Exam Vital Signs: Temp Pulse Resp BP Pulse Ox 99.3 F 116 H 30 H 110/80 93 02/16/18 12:00 02/16/18 16:31 02/16/18 16:31 02/16/18 12:00 02/16/18 16:31 Intake & Output 02/15/18 02/16/18 02/17/18 06:59 06:59 06:59 Intake Total 2052 2570 1290 Output Total 990 1215 445 Balance 1062 1355 845 Weight 60.4 kg 64.3 kg 64.3 kg Physical Exam: Intubated and vent support. Sedated on IV Midazolam. ET and OG tubes in situ. Head exam: PRESENT: atraumatic, normocephalic Ear exam: PRESENT: normal external ear exam Mouth exam: PRESENT: moist Respiratory exam: PRESENT: decreased breath sounds, rhonchi, wheezes Cardiovascular exam: PRESENT: RRR. ABSENT: diastolic murmur, rubs, systolic murmur Vascular exam: PRESENT: normal capillary refill. ABSENT: pallor GI/Abdominal exam: PRESENT: normal bowel sounds, soft. ABSENT: distended, guarding, mass, organolmegaly, rebound, tenderness Extremities exam: ABSENT: pedal edema Musculoskeletal exam: PRESENT: normal inspection Neurological exam: PRESENT: altered - sedated on IV Midazolam Skin exam: PRESENT: dry, intact, warm Results Laboratory Results: 02/16/18 05:00 02/16/18 05:00 02/16/18 02/16/18 02/16/18 05:00 05:00 05:30 WBC 7.4 RBC 3.49 L Hgb 11.5 L Hct 34.7 L MCV 99 H MCH 32.8 MCHC 33.0 RDW 12.9 Plt Count 220 Seg Neutrophils % Not Reportable Lymphocytes % Not Reportable Monocytes % Not Reportable Eosinophils % Not Reportable Basophils % Not Reportable Absolute Neutrophils Not Reportable Absolute Lymphocytes Not Reportable Absolute Monocytes Not Reportable Absolute Eosinophils Not Reportable Absolute Basophils Not Reportable Carbonic Acid 1.65 H HCO3/H2CO3 Ratio 21:1 ABG pH 7.43 ABG pCO2 54.8 H ABG pO2 61.4 L ABG HCO3 35.4 H ABG O2 Saturation 91.7 L ABG Base Excess 9.4 FiO2 50% Sodium 141.6 Potassium 3.7 Chloride 103 Carbon Dioxide 32 H Anion Gap 7 BUN 24 H Creatinine 0.58 Est GFR ( Amer) > 60 Est GFR (Non-Af Amer) > 60 Glucose 107 Calcium 8.5 Total Bilirubin 0.3 AST 27 ALT 68 H Alkaline Phosphatase 21 L Total Protein 5.2 L Albumin 2.7 L 02/14/18 20:22 Wesley Catheter Urine Culture - Final Yeast, Not Karen Albicans 02/11/18 10:47 Blood Blood Culture - Final NO GROWTH IN 5 DAYS 02/14/18 22:25 Tracheal Aspirate Gram Stain - Final 02/14/18 22:25 Tracheal Aspirate Sputum Culture - Final Enterobacter Cloacae Reduced Normal Meenu 02/13/18 02/14/18 02/14/18 17:31 21:00 21:00 Creatine Kinase 286 H CK-MB (CK-2) 13.80 H Troponin I < 0.012 < 0.012 02/15/18 02/15/18 04:55 04:55 Creatine Kinase 162 H CK-MB (CK-2) 8.94 H Troponin I < 0.012 Impressions: KUB X-Ray 02/14/18 19:59 IMPRESSION: 1 Limited study for placement of nasogastric tube. The tip of the tube is in the body of the stomach. Chest X-Ray 02/16/18 05:00 IMPRESSION: STABLE APPEARANCE OF THE CHEST. SUPPORT DEVICES UNCHANGED. Assessment & Plan - Diagnosis (1) COPD with respiratory failure, acute Is this a current diagnosis for this admission?: Yes (2) Acute exacerbation of COPD with asthma Is this a current diagnosis for this admission?: Yes (3) Cigarette smoker one half pack a day or less Is this a current diagnosis for this admission?: Yes (4) Essential hypertension Is this a current diagnosis for this admission?: Yes (5) HLD (hyperlipidemia) Qualifiers: Hyperlipidemia type: unspecified Qualified Code(s): E78.5 - Hyperlipidemia , unspecified Is this a current diagnosis for this admission?: Yes (6) CVA, old, hemiparesis Is this a current diagnosis for this admission?: Yes (7) Seasonal allergic rhinitis Qualifiers: Allergic rhinitis trigger: unspecified Qualified Code(s): J30.2 - Other seasonal allergic rhinitis Is this a current diagnosis for this admission?: Yes (8) GERD (gastroesophageal reflux disease) Qualifiers: Esophagitis presence: without esophagitis Qualified Code(s): K21.9 - Gastro -esophageal reflux disease without esophagitis Is this a current diagnosis for this admission?: Yes (9) Depression Qualifiers: Depression Type: unspecified Qualified Code(s): F32.9 - Major depressive disorder, single episode, unspecified Is this a current diagnosis for this admission?: Yes (10) Status post bilateral mastectomy Is this a current diagnosis for this admission?: Yes (11) Yeast cystitis Is this a current diagnosis for this admission?: Yes Plan: See attending physician orders. - Time Time Spent with patient: 25-34 minutes Medications reviewed and adjusted accordingly: Yes Anticipated discharge: Home with Homehealth Within: Other - Inpatient Certification Based on my medical assessment, after consideration of the patient's comorbidities, presenting symptoms, or acuity I expect that the services needed warrant INPATIENT care.: Yes I certify that my determination is in accordance with my understanding of Medicare's requirements for reasonable and necessary INPATIENT services [42 CFR 412.3e].: Yes Medical Necessity: Need Close Monitoring Due to Risk of Patient Decompensation, Need For IV Fluids, Need For Continuous Telemetry Monitoring, Need for Nebulizer Therapy and Monitoring of Response, Need for IV Antibiotics, Risk of Complication if Not Cared For in Hospital Post Hospital Care: D/C Fur Scraper Documentation - Plan Summary Plan Summary: Continue IV Levofloxacin coverage. Start on IV Diflucan therapy. We will continue intermittent gastric suction and restart on enteral tube feeding tomorrow. Increase Cardizem to 60 mg po q6 hours. Continue all other current medication management.
[2018-02-16] MEDS ORDERED: FLUCONAZOLE 200 MG/NS RTU 200 MG/100 ML RTUPB IV SCH (18:00)
[2018-02-16] MEDS: DILTIAZEM HCL 60 MG TABLET NG SCH ×2 (18:28→23:00)
[2018-02-16] MEDS: MONTELUKAST SODIUM 10 MG TABLET NG SCH (21:13)
[2018-02-16] MEDS: LEVOFLOXACIN 750 MG/D5W RTU 750 MG/150 ML RTUPB IV SCH (21:13)
[2018-02-16] MEDS ORDERED: DILTIAZEM HCL 60 MG TABLET NG SCH (22:00)
[2018-02-17] MEDS: IPRATROPIUM BROMIDE 0.02% NEB 0.5 MG/2.5 ML AMPUL NEB SCH ×6 (00:13→19:43)
[2018-02-17] MEDS: MORPHINE SULFATE 10 MG/ML INJ IV PRN ×3 (00:28→19:32)
[2018-02-17] MEDS: HALOPERIDOL 0.5 MG TABLET NG SCH ×4 (00:50→17:36)
[2018-02-17] MEDS: PROPOFOL 1,000 MG/100 ML INFUS..BTL IV PRN ×5 (00:53→19:33)
[2018-02-17] MEDS: NORMAL SALINE 1000 ML 1,000 ML IV PRN (03:38)
[2018-02-17] MEDS: METHYLPREDNISOLONE INJ 125 MG/2 ML SDV IV SCH ×3 (05:03→17:37)
[2018-02-17] MEDS: LANSOPRAZOLE 30 MG TAB.RAP.DR NG SCH (05:03)
[2018-02-17] MEDS: DILTIAZEM HCL 60 MG TABLET NG SCH ×3 (05:03→17:36)
[2018-02-17 06:07] LABS: ARTERIAL BLOOD H2CO3 1.63 mmol/L (1.05-1.35); ARTERIAL BLOOD HCO3 33.2 mmol/L (20-26); ARTERIAL BLOOD PH 7.41 (7.35-7.45); ARTERIAL BLOOD PO2 109.9 mmHg (80-100); ARTERIAL BLOOD TOTAL CO2 34.8 mmol/L (21-25)
[2018-02-17 06:08] LABS: ARTERIAL BLOOD FIO2 70%
[2018-02-17] MEDS: MIDAZOLAM HCL 50 MG/100 ML RTUINJ IV PRN (06:18)
[2018-02-17 06:39] LABS: HEMATOCRIT 39.8 % (36.0-47.0); HEMOGLOBIN 13.2 g/dL (12.0-15.5); MEAN CORPUSCULAR HEMOGLOBIN 32.9 pg (27.0-33.4); MEAN CORPUSCULAR HGB CONC 33.2 g/dL (32.0-36.0); MEAN CORPUSCULAR VOLUME 99 fl (80-97); PLATELET COUNT 148 10^3/uL (150-450); RED BLOOD COUNT 4.02 10^6/uL (3.72-5.28); RED CELL DISTRIBUTION WIDTH 12.9 % (11.5-14.0); WHITE BLOOD COUNT 10.7 10^3/uL (4.0-10.5)
[2018-02-17 06:40] LABS: ANION GAP 10 (5-19); BLOOD UREA NITROGEN 27 mg/dL (7-20); CARBON DIOXIDE 32 mmol/L (22-30); CHLORIDE 101 mmol/L (98-107); GLUCOSE 110 mg/dL (75-110); POTASSIUM 4.1 mmol/L (3.6-5.0); SODIUM 142.7 mmol/L (137-145)
[2018-02-17 08:19] LABS: ABSOLUTE LYMPHOCYTES# (MANUAL) 0.9 10^3/uL (0.5-4.7); ABSOLUTE MONOCYTES # (MANUAL) 0.3 10^3/uL (0.1-1.4); ABSOLUTE NEUTROPHILS# (MANUAL) 9.5 10^3/uL (1.7-8.2); BASOPHILS % (MANUAL) 0 % (0-2); EOSINOPHILS % (MANUAL) 0 % (0-6); LYMPHOCYTES % (MANUAL) 8 % (13-45); MONOCYTES % (MANUAL) 3 % (3-13); SEGMENTED NEUTROPHILS % (MAN) 89 % (42-78); TOTAL CELLS COUNTED 100
[2018-02-17 08:21] LABS: OVALOCYTES 1+; PLATELET CLUMPS PRESENT; PLATELET COMMENT DECREASED; POIKILOCYTOSIS 1+; TOXIC GRANULATION 1+; TOXIC VACUOLATION PRESENT
--- NOTE | 2018-02-17 08:53 | RADIOLOGY REPORT (SQ) ---
EXAM DESCRIPTION: CHEST SINGLE VIEW COMPLETED DATE/TIME: 02/17/2018 7:15 am REASON FOR STUDY: on ventilator COMPARISON: 02/16/2018. EXAM PARAMETERS: NUMBER OF VIEWS: One view. TECHNIQUE: Single frontal radiographic view of the chest acquired. RADIATION DOSE: NA LIMITATIONS: None. FINDINGS: LUNGS AND PLEURA: No opacities, masses or pneumothorax. No pleural effusion. MEDIASTINUM AND HILAR STRUCTURES: No masses. Contour normal. HEART AND VASCULAR STRUCTURES: Heart normal in size. Normal vasculature. BONES: No acute findings. HARDWARE: Stable endotracheal tube and nasogastric tube. Surgical clips on the left. Left shoulder prosthesis. OTHER: No other significant finding. IMPRESSION: NO CHANGE IN APPEARANCE OF THE CHEST. TECHNICAL DOCUMENTATION: JOB ID: [id number] [employer]- All Rights Reserved Reading location - IP/workstation name: [email or web address]
[2018-02-17] MEDS: ENOXAPARIN SODIUM INJ 40 MG/0.4 ML DISP.SYRIN SUBCUT SCH (09:39)
[2018-02-17] MEDS: ANASTROZOLE 1 MG TABLET NG SCH (09:39)
[2018-02-17] MEDS: NICOTINE 14 MG/24 HR PATCH.TD24 TD SCH (09:39)
[2018-02-17] MEDS: FUROSEMIDE 20 MG TABLET NG SCH (09:39)
--- NOTE | 2018-02-17 10:03 | PDOC PROGRESS REPORT ---
Subjective Progress Note for:: 02/17/18 Subjective:: Patient was admitted for COPD acute exacerbations and respiratory failure currently on the mechanical ventilations Patient is currently on a Cardizem 60 mg through the NG tube and a heart rate currently all stable Still have hematuria and the patient's Xarelto was discontinued currently according to the nursing staff the hematuria is much improved Patient still currently on antibiotic and antifungal Family A bedside discussed with the patient's condition is guarded Reason For Visit: WHEEZING,CHRONIC OBSTRUCTIVE ASTHMA WITH EXACERBAT Physical Exam Vital Signs: Temp Pulse Resp BP Pulse Ox 99.1 F 101 H 20 120/77 95 02/17/18 08:00 02/17/18 08:25 02/17/18 08:25 02/17/18 08:00 02/17/18 08:25 Intake & Output 02/16/18 02/17/18 02/18/18 06:59 06:59 06:59 Intake Total 2570 2950 0 Output Total 1215 1835 75 Balance 1355 1115 -75 Weight 64.3 kg 66.1 kg Physical Exam: Currently intubated under sedation General appearance: PRESENT: no acute distress Eye exam: PRESENT: PERRLA Mouth exam: PRESENT: neck supple Respiratory exam: PRESENT: clear to auscultation darinel Cardiovascular exam: PRESENT: +S1, +S2 GI/Abdominal exam: PRESENT: hypoactive bowel sounds, soft Extremities exam: ABSENT: pedal edema Skin exam: PRESENT: dry Results Laboratory Results: 02/17/18 05:58 02/17/18 05:58 02/17/18 02/17/18 02/17/18 05:35 05:58 05:58 WBC 10.7 H RBC 4.02 Hgb 13.2 Hct 39.8 MCV 99 H MCH 32.9 MCHC 33.2 RDW 12.9 Plt Count 148 L Seg Neutrophils % Not Reportable Lymphocytes % Not Reportable Monocytes % Not Reportable Eosinophils % Not Reportable Basophils % Not Reportable Absolute Neutrophils Not Reportable Absolute Lymphocytes Not Reportable Absolute Monocytes Not Reportable Absolute Eosinophils Not Reportable Absolute Basophils Not Reportable Carbonic Acid 1.63 H HCO3/H2CO3 Ratio 20:1 ABG pH 7.41 ABG pCO2 54.0 H ABG pO2 109.9 H ABG HCO3 33.2 H ABG O2 Saturation 98.0 ABG Base Excess 7.0 FiO2 70% Sodium 142.7 Potassium 4.1 Chloride 101 Carbon Dioxide 32 H Anion Gap 10 BUN 27 H Creatinine 0.64 Est GFR ( Amer) > 60 Est GFR (Non-Af Amer) > 60 Glucose 110 Calcium 8.0 L 02/14/18 20:22 Wesley Catheter Urine Culture - Final Yeast, Not Karen Albicans 02/11/18 10:47 Blood Blood Culture - Final NO GROWTH IN 5 DAYS 02/14/18 22:25 Tracheal Aspirate Gram Stain - Final 02/14/18 22:25 Tracheal Aspirate Sputum Culture - Final Enterobacter Cloacae Reduced Normal Meenu 02/13/18 02/14/18 02/14/18 17:31 21:00 21:00 Creatine Kinase 286 H CK-MB (CK-2) 13.80 H Troponin I < 0.012 < 0.012 02/15/18 02/15/18 04:55 04:55 Creatine Kinase 162 H CK-MB (CK-2) 8.94 H Troponin I < 0.012 Impressions: KUB X-Ray 02/14/18 19:59 IMPRESSION: 1 Limited study for placement of nasogastric tube. The tip of the tube is in the body of the stomach. Chest X-Ray 02/17/18 05:00 IMPRESSION: NO CHANGE IN APPEARANCE OF THE CHEST. Assessment & Plan - Diagnosis (1) COPD with respiratory failure, acute Is this a current diagnosis for this admission?: Yes (2) Yeast cystitis Is this a current diagnosis for this admission?: Yes (3) Essential hypertension Is this a current diagnosis for this admission?: Yes (4) SIRS (systemic inflammatory response syndrome) Is this a current diagnosis for this admission?: Yes (5) Status post bilateral mastectomy Is this a current diagnosis for this admission?: Yes (6) Tachycardia Is this a current diagnosis for this admission?: Yes (7) CVA, old, hemiparesis Is this a current diagnosis for this admission?: Yes (8) GERD (gastroesophageal reflux disease) Qualifiers: Esophagitis presence: without esophagitis Qualified Code(s): K21.9 - Gastro -esophageal reflux disease without esophagitis Is this a current diagnosis for this admission?: Yes - Time Time Spent with patient: 25-34 minutes Total Critical Time (Minutes): 25 Medications reviewed and adjusted accordingly: Yes Anticipated discharge: Other Within: Other - Inpatient Certification Medical Necessity: Need Close Monitoring Due to Risk of Patient Decompensation, Need for IV Antibiotics Post Hospital Care: D/C Electric Wirer Documentation - Plan Summary Plan Summary: Continues to IV antibiotic Patient had hypoactive bowel sounds most likely ileus will get the x-ray KUB Continues to NG tube feeding Patient hematuria is getting better
[2018-02-17] MEDS ORDERED: HYDRALAZINE HCL INJ/PF 20 MG/1 ML SDV ONE (10:06)
[2018-02-17] MEDS ORDERED: HYDRALAZINE HCL INJ/PF 20 MG/1 ML SDV IV PRN (10:39)
--- NOTE | 2018-02-17 11:04 | RADIOLOGY REPORT (SQ) ---
EXAM DESCRIPTION: KUB/ABDOMEN (SINGLE VIEW) COMPLETED DATE/TIME: 02/17/2018 10:51 am REASON FOR STUDY: hypoactive bs COMPARISON: 02/14/2018. NUMBER OF VIEWS: One view. TECHNIQUE: Supine radiographic image of the abdomen acquired. LIMITATIONS: None. FINDINGS: BOWEL GAS PATTERN: Very little bowel gas present. No dilated loops visualized. CALCIFICATIONS: No suspicious calcifications. SOFT TISSUES: No gross mass or suggestion of organomegaly. HARDWARE: Nasogastric tube with the tip in stomach. Catheter in the bladder. BONES: No acute fracture. No worrisome bone lesions. OTHER: No other significant finding. IMPRESSION: VERY LITTLE BOWEL GAS PRESENT. LIFE LINES DESCRIBED. NO RADIOGRAPHIC EVIDENCE FOR A CUTE ABDOMINAL DISEASE. TECHNICAL DOCUMENTATION: JOB ID: [id number] [employer]- All Rights Reserved Reading location - IP/workstation name: [email or web address]
[2018-02-17] MEDS: FLUCONAZOLE 200 MG/NS RTU 200 MG/100 ML RTUPB IV SCH (17:36)
--- NOTE | 2018-02-17 18:31 | PROGRESS NOTE E ---
Progress Note NAME: ARIELLA JUAREZ : 1965 AGE: 52Y DATE: 02/17/2018 ROOM: 606 SUBJECTIVE: The patient is a 52-year-old -[place] female who came in with acute respiratory failure requiring invasive mechanical ventilation. The patient was severely wheezing for the last few days prior to ICU transfer. The patient has no fever for the last 24 hours. Wheezing is much less. Still has some mild to moderate endotracheal tube secretions. Tolerating the NG tube. The patient had increased gastric residual over the last 24 hours, requiring withholding the NG tube feedings. The patient is able to tolerate off the pressors and just started on propofol. No vomiting and no diarrhea noted. OBJECTIVE: GENERAL: The patient is sedated, afebrile, not in apparent severe respiratory distress. VITAL SIGNS: At present the temperature is 98.2 with a T-max of 99.7, heart rate is 104 with blood pressure 147/77, respiratory rate is 33, saturation is 91-92 on 35% FiO2. SIMV rate of 20, tidal volume 400, pressure support of 10, PEEP of 5. EYES: No jaundice or pallor. EARS, NOSE, AND THROAT: No ear drainage. No nasal discharge. Oral tracheal tube is in place. CHEST AND LUNGS: No wheezing, no rhonchi, no coarse crackles. CARDIOVASCULAR: S1, S2 distinct. Normal rate, regular rhythm. ABDOMEN: Soft, positive bowel sounds, soft, nondistended. EXTREMITIES: No joint swelling, no cellulitis. LABORATORY DATA: CBC done today showed a white count of 10.7, hemoglobin is 13.2, hematocrit is 39.8, platelet count is 148. ABG done today, this morning, showed pH of 7.41, pCO2 of 54, pO2 is 109, and saturation is 98. Chemistry done today showed sodium 142, potassium 4.1, chloride 101, CO2 is 32, BUN is 37, creatinine is 0.64, glucose 110, calcium is 8. IMAGING STUDIES: Chest x-ray done today showed endotracheal tube is in place, no pneumothorax, no pleural effusion, no new infiltrates. ASSESSMENT: 1. ACUTE RESPIRATORY FAILURE REQUIRING INVASIVE MECHANICAL VENTILATION. 2. COPD/ASTHMA, IN ACUTE EXACERBATION. Currently improving. 3. PNEUMONIA. PLAN/RECOMMENDATION: 1. We will continue to optimize ventilatory support. 2. We will do sedation vacation again tomorrow and perform a spontaneous breathing trial. 3. We will repeat the x-ray tomorrow. 4. We will continue the propofol. 5. We will continue the Solu-Medrol 80 mg IV every 6 hours. 6. Continue the Levaquin 250 mg once daily. DICTATING PHYSICIAN: ERICA REAL MD,ALO,MPH [id number] PHY#: [id number] ID: [id number] JOB#: [id number] ACCT: [id number] cc: > MTDD
[2018-02-17] MEDS: MONTELUKAST SODIUM 10 MG TABLET NG SCH (21:36)
[2018-02-17] MEDS: LEVOFLOXACIN 750 MG/D5W RTU 750 MG/150 ML RTUPB IV SCH (21:36)
[2018-02-18] MEDS: PROPOFOL 1,000 MG/100 ML INFUS..BTL IV PRN ×5 (00:02→21:50)
[2018-02-18] MEDS: IPRATROPIUM BROMIDE 0.02% NEB 0.5 MG/2.5 ML AMPUL NEB SCH ×6 (00:13→19:47)
[2018-02-18] MEDS: MORPHINE SULFATE 10 MG/ML INJ IV PRN ×5 (00:33→20:01)
[2018-02-18] MEDS: DILTIAZEM HCL 60 MG TABLET NG SCH ×4 (01:04→17:38)
[2018-02-18] MEDS: METHYLPREDNISOLONE INJ 125 MG/2 ML SDV IV SCH ×4 (01:04→17:39)
[2018-02-18] MEDS: HALOPERIDOL 0.5 MG TABLET NG SCH ×4 (01:05→17:38)
[2018-02-18] MEDS: NORMAL SALINE 1000 ML 1,000 ML IV PRN ×2 (04:19→17:42)
[2018-02-18 05:03] LABS: HEMATOCRIT 40.1 % (36.0-47.0); HEMOGLOBIN 13.6 g/dL (12.0-15.5); MEAN CORPUSCULAR HEMOGLOBIN 32.7 pg (27.0-33.4); MEAN CORPUSCULAR VOLUME 96 fl (80-97); PLATELET COUNT 268 10^3/uL (150-450); RED BLOOD COUNT 4.17 10^6/uL (3.72-5.28); RED CELL DISTRIBUTION WIDTH 12.9 % (11.5-14.0); WHITE BLOOD COUNT 13.8 10^3/uL (4.0-10.5)
[2018-02-18 05:11] LABS: ANION GAP 9 (5-19); BLOOD UREA NITROGEN 28 mg/dL (7-20); CALCIUM 8.2 mg/dL (8.4-10.2); CARBON DIOXIDE 32 mmol/L (22-30); CHLORIDE 100 mmol/L (98-107); GLUCOSE 102 mg/dL (75-110); POTASSIUM 3.7 mmol/L (3.6-5.0); SODIUM 140.9 mmol/L (137-145)
[2018-02-18 05:16] LABS: ABSOLUTE LYMPHOCYTES# (MANUAL) 1.7 10^3/uL (0.5-4.7); ABSOLUTE MONOCYTES # (MANUAL) 0.3 10^3/uL (0.1-1.4); ABSOLUTE NEUTROPHILS# (MANUAL) 11.9 10^3/uL (1.7-8.2); BASOPHILS % (MANUAL) 0 % (0-2); EOSINOPHILS % (MANUAL) 0 % (0-6); LYMPHOCYTES % (MANUAL) 10 % (13-45); MONOCYTES % (MANUAL) 2 % (3-13); SEGMENTED NEUTROPHILS % (MAN) 86 % (42-78); TOTAL CELLS COUNTED 100
[2018-02-18 05:18] LABS: PLATELET COMMENT ADEQUATE; POIKILOCYTOSIS SLIGHT; TARGET CELLS SLIGHT; TEAR DROP CELLS SLIGHT; TOXIC GRANULATION SLIGHT; TOXIC VACUOLATION PRESENT
--- NOTE | 2018-02-18 06:08 | PDOC PROGRESS REPORT ---
Subjective Progress Note for:: 02/18/18 Subjective:: Patient is currently doing same No other events happened Reason For Visit: WHEEZING,CHRONIC OBSTRUCTIVE ASTHMA WITH EXACERBAT Physical Exam Vital Signs: Temp Pulse Resp BP Pulse Ox 99.5 F 95 24 H 150/83 H 94 02/18/18 05:37 02/18/18 03:02 02/18/18 03:02 02/18/18 01:23 02/18/18 03:02 Intake & Output 02/16/18 02/17/18 02/18/18 06:59 06:59 06:59 Intake Total 2570 3100 1569 Output Total 1215 1835 2565 Balance 1355 1265 -996 Weight 64.3 kg 66.1 kg 64.8 kg Physical Exam: Currently intubated under sedation General appearance: PRESENT: no acute distress Eye exam: PRESENT: PERRLA Mouth exam: PRESENT: neck supple Respiratory exam: PRESENT: decreased breath sounds Cardiovascular exam: PRESENT: +S1, +S2 GI/Abdominal exam: PRESENT: hypoactive bowel sounds, soft Extremities exam: ABSENT: pedal edema Neurological exam: PRESENT: altered Skin exam: PRESENT: dry Results Laboratory Results: 02/18/18 04:30 02/18/18 04:30 02/17/18 02/17/18 02/17/18 05:35 05:58 05:58 WBC 10.7 H RBC 4.02 Hgb 13.2 Hct 39.8 MCV 99 H MCH 32.9 MCHC 33.2 RDW 12.9 Plt Count 148 L Seg Neutrophils % Not Reportable Lymphocytes % Not Reportable Monocytes % Not Reportable Eosinophils % Not Reportable Basophils % Not Reportable Absolute Neutrophils Not Reportable Absolute Lymphocytes Not Reportable Absolute Monocytes Not Reportable Absolute Eosinophils Not Reportable Absolute Basophils Not Reportable Carbonic Acid 1.63 H HCO3/H2CO3 Ratio 20:1 ABG pH 7.41 ABG pCO2 54.0 H ABG pO2 109.9 H ABG HCO3 33.2 H ABG O2 Saturation 98.0 ABG Base Excess 7.0 FiO2 70% Sodium 142.7 Potassium 4.1 Chloride 101 Carbon Dioxide 32 H Anion Gap 10 BUN 27 H Creatinine 0.64 Est GFR ( Amer) > 60 Est GFR (Non-Af Amer) > 60 Glucose 110 Calcium 8.0 L 02/18/18 02/18/18 04:30 04:30 WBC 13.8 H RBC 4.17 Hgb 13.6 Hct 40.1 MCV 96 MCH 32.7 MCHC 34.0 RDW 12.9 Plt Count 268 Seg Neutrophils % Not Reportable Lymphocytes % Not Reportable Monocytes % Not Reportable Eosinophils % Not Reportable Basophils % Not Reportable Absolute Neutrophils Not Reportable Absolute Lymphocytes Not Reportable Absolute Monocytes Not Reportable Absolute Eosinophils Not Reportable Absolute Basophils Not Reportable Carbonic Acid HCO3/H2CO3 Ratio ABG pH ABG pCO2 ABG pO2 ABG HCO3 ABG O2 Saturation ABG Base Excess FiO2 Sodium 140.9 Potassium 3.7 Chloride 100 Carbon Dioxide 32 H Anion Gap 9 BUN 28 H Creatinine 0.55 Est GFR ( Amer) > 60 Est GFR (Non-Af Amer) > 60 Glucose 102 Calcium 8.2 L 02/13/18 02/14/18 02/14/18 17:31 21:00 21:00 Creatine Kinase 286 H CK-MB (CK-2) 13.80 H Troponin I < 0.012 < 0.012 02/15/18 02/15/18 04:55 04:55 Creatine Kinase 162 H CK-MB (CK-2) 8.94 H Troponin I < 0.012 Impressions: KUB X-Ray 02/17/18 00:00 IMPRESSION: VERY LITTLE BOWEL GAS PRESENT. LIFE LINES DESCRIBED. NO RADIOGRAPHIC EVIDENCE FOR ACUTE ABDOMINAL DISEASE. Chest X-Ray 02/17/18 05:00 IMPRESSION: NO CHANGE IN APPEARANCE OF THE CHEST. Assessment & Plan - Diagnosis (1) COPD with respiratory failure, acute Is this a current diagnosis for this admission?: Yes Plan: Currently on stable (2) Yeast cystitis Is this a current diagnosis for this admission?: Yes Plan: *Antifungal medication (3) Essential hypertension Is this a current diagnosis for this admission?: Yes (4) SIRS (systemic inflammatory response syndrome) Is this a current diagnosis for this admission?: Yes (5) Status post bilateral mastectomy Is this a current diagnosis for this admission?: Yes (6) Tachycardia Is this a current diagnosis for this admission?: Yes (7) CVA, old, hemiparesis Is this a current diagnosis for this admission?: Yes (8) GERD (gastroesophageal reflux disease) Qualifiers: Esophagitis presence: without esophagitis Qualified Code(s): K21.9 - Gastro -esophageal reflux disease without esophagitis Is this a current diagnosis for this admission?: Yes - Time Time Spent with patient: 15-24 minutes Medications reviewed and adjusted accordingly: Yes Anticipated discharge: Other Within: Other - Inpatient Certification Medical Necessity: Need Close Monitoring Due to Risk of Patient Decompensation Post Hospital Care: D/C Side Framer Documentation - Plan Summary Plan Summary: Continues current medications
[2018-02-18] MEDS: LANSOPRAZOLE 30 MG TAB.RAP.DR NG SCH (07:04)
--- NOTE | 2018-02-18 08:21 | PROGRESS NOTE E ---
Progress Note NAME: ARIELLA JUAREZ : 1965 AGE: 52Y DATE: 02/16/2018 ROOM: 606 SUBJECTIVE: Patient is a 52-year-old -Green[place]ic female who came in with acute respiratory failure requiring invasive mechanical ventilation due to severe COPD/asthma exacerbation. Patient was admitted to ICU. Patient had increased gastric residual yesterday. NG tube feeding was held temporarily. There was no vomiting, no diarrhea. Endotracheal tube secretions were scanty. No fever spikes since yesterday up to today. OBJECTIVE: VITAL SIGNS: Currently, patient is sedated, not in acute respiratory distress, with ventilator settings of SIMV rate of 20, tidal volume of 400, pressure support of 10, FiO2 of 40%. EYES: No jaundice or pallor. EARS, NOSE AND THROAT: No ear drainage. No nasal discharge. HEAD AND NECK: No scalp swelling. Neck supple. CHEST AND LUNGS: No wheezing, no rhonchi, no coarse crackles. CARDIOVASCULAR: S1, S2 distant. No murmur. ABDOMEN: Flabby. Positive bowel sounds. Soft, nondistended. EXTREMITIES: No joint swelling or cellulitis. LABORATORY DATA: CBC done today showed a white count of 7.4, hemoglobin 7.5, hematocrit 34.7, MCV is 99.4. ABGs done today showed a pH of 7.41, pCO2 of 54.8, pO2 of 61.4k and O2 saturation of 81.7. Chemistry done today showed sodium 141, potassium 3.7, chloride is 103, CO2 is 32, BUN yesterday 4, creatinine 0.58. Valproic acid 68, creatinine kinase is 21 and troponin is 0.15. Protein is 5.2 and albumin is 5.7. ASSESSMENT: 1. ACUTE RESPIRATORY FAILURE REQUIRING INVASIVE MECHANICAL VENTILATION. 2. COPD/ASTHMA EXACERBATION. Currently stable and not in acute bronchospasm. 3. PNEUMONIA, POSITIVE FOR ENTEROBACTER CLOACAE, SENSITIVE TO LEVAQUIN. PLAN/RECOMMENDATIONS: 1. Will do sedation vacation and spontaneous breathing trial daily. 2. Continue on Xopenex and Atrovent nebulizer treatments every 4 hours. Continue Levaquin 750 mg IV piggyback every day. DICTATING PHYSICIAN: ERICA REAL MD,ALO,MPH [id number] PHY#: [id number] ID: [id number] JOB#: [id number] ACCT: [id number] cc: > KRISTI
[2018-02-18] MEDS: NICOTINE 14 MG/24 HR PATCH.TD24 TD SCH (09:47)
[2018-02-18] MEDS: ANASTROZOLE 1 MG TABLET NG SCH (09:50)
[2018-02-18] MEDS: FUROSEMIDE 20 MG TABLET NG SCH (09:50)
[2018-02-18] MEDS: ENOXAPARIN SODIUM INJ 40 MG/0.4 ML DISP.SYRIN SUBCUT SCH (09:51)
--- NOTE | 2018-02-18 10:03 | RADIOLOGY REPORT (SQ) ---
EXAM DESCRIPTION: CTA CHEST COMPLETED DATE/TIME: 02/18/2018 9:45 am REASON FOR STUDY: r/o PE COMPARISON: 07/15/2016. TECHNIQUE: CT scan of the chest performed using helical scanning technique with dynamic intravenous contrast injection. Images reviewed with lung, soft tissue and bone windows. Reconstructed coronal and sagittal MPR images reviewed. Additional 3 dimensional post-processing performed to develop Maximal Intensity Projection images (WA P). All images stored on PACS. All CT scanners at this facility use dose modulation, iterative reconstruction, and/or weight based d osing when appropriate to reduce radiation dose to as low as reasonably achievable (ALARA). [facility]: Dose Right [facility]: CareDose [facility]: Dose Right [facility]: Teradose 4D [facility]: [employer] CONTRAST TYPE AND DOSE: contrast/concentration: Isovue 350.00 mg/ml; Total Contrast Delivered: 64.0 ml; Total Saline Delivered: 105.0 ml Contrast bolus adequate for pulmonary arteries and aorta. RENAL FUNCTION: BUN 28 creatinine 0.55. RADIATION DOSE: CT Rad equipment meets quality standard of care and radiation dose reduction techniq ues were employed. CTDIvol: 15.5 - 20.9 mGy. DLP: 2328 mGy-cm. . LIMITATIONS: None. FINDINGS: LUNGS AND PLEURA: Mild interstitial scarring and basilar atelectasis. No masses, infiltra juan alberto, or pneumothorax. No pleural effusions or pleural calcifications. AORTA AND GREAT VESSELS: No aneurysm. No dissection. HEART: No pericardial effusion. No significant coronary artery calcifications. PULMONARY ARTERIES: No emboli visualized in the main pulmonary arteries or the segmental branches. HILAR AND MEDIASTINAL STRUCTURES: No identified masses or abnormal nodes. HARDWARE: Endotracheal tube and nasogastric tube. UPPER ABDOMEN: No significant findings. Limited exam. THYROID AND OTHER SOFT TISSUES: No masses. No adenopathy. BONES: No acute or significant finding. 3D MIPS: Confirm above findings. OTHER: No other significant finding. IMPRESSION: NORMAL CTA OF THE CHEST. NO PULMONARY EMBOLI. COMMENT: Quality ID # [id number]: Final reports with documentation of one or more dose reduction techniques (e.g., Automated exposure control, adjustment of the mA and/or kV according to patient size, use of iterative reconstruction technique) TECHNICAL DOCUMENTATION: JOB ID: [id number] [employer]- All Rights Reserved Reading location - IP/workstation name: [email or web address]
--- NOTE | 2018-02-18 10:06 | RADIOLOGY REPORT (SQ) ---
EXAM DESCRIPTION: CT ABD/PELVIS WITH IV ONLY COMPLETED DATE/TIME: 02/18/2018 9:45 am REASON FOR STUDY: absent bowel sounds/increasing residual amounts COMPARISON: None. TECHNIQUE: CT scan of the abdomen and pelvis performed using helical scanning technique with dynamic intravenous contrast injection. No oral contrast. Images reviewed with lung, soft tissue, and bone windows. Reconstructed coronal and sagittal MPR images reviewed. Delayed images for evaluation of the urinary system also acquired. All images stored on PACS. All CT scanners at this facility use dose modulation, iterative reconstruction, and/or weight based d osing when appropriate to reduce radiation dose to as low as reasonably achievable (ALARA). [facility]: Dose Right [facility]: CareDose [facility]: Dose Right [facility]: Teradose 4D [facility]: [employer] CONTRAST TYPE AND DOSE: 64 mL Omnipaque 350- low osmolar. RENAL FUNCTION: BUN 28 creatinine 0.55. RADIATION DOSE: . LIMITATIONS: None. FINDINGS: LOWER CHEST: No significant findings. No nodules or infiltrates. LIVER: Normal size. No masses. No dilated ducts. SPLEEN: Normal size. No focal lesions. PANCREAS: No masses. No significant calcifications. No adjacent inflammation or peripancreatic fluid collections. Pancreatic duct not dilated. GALLBLADDER: No identified stones by CT criteria. No inflammatory changes to suggest cholecystitis. ADRENAL GLANDS: No significant masses or asymmetry. RIGHT KIDNEY AND URETER: No solid masses. No significant calcifications. No hydronephrosis or hyd roureter. LEFT KIDNEY AND URETER: No solid masses. No significant calcifications. No hydronephrosis or hydr oureter. AORTA AND VESSELS: No aneurysm. No dissection. Renal arteries, SMA, celiac without stenosis. RETROPERITONEUM: No retroperitoneal adenopathy, hemorrhage or masses. BOWEL AND PERITONEAL CAVITY: Nasogastric tube with the tip in the stomach. No masses or inflammatory changes. No free fluid or peritoneal masses. APPENDIX: Normal. PELVIS: No mass. No free fluid. Catheter in the bladder. ABDOMINAL WALL: No masses. No hernias. BONES: No significant or acute findings. OTHER: No other significant finding. IMPRESSION: NO SIGNIFICANT OR ACUTE FINDING IN THE ABDOMEN OR PELVIS ON CT SCAN WITH IV CONTRAST. TECHNICAL DOCUMENTATION: JOB ID: [id number] Quality ID # [id number]: Final reports with documentation of one or more dose reduction techniques (e.g., Au tomated exposure control, adjustment of the mA and/or kV according to patient size, use of iterative reconstruction technique) 2010 [employer] All Rights Reserved Reading location - IP/workstation name: [email or web address]
[2018-02-18] MEDS ORDERED: ALPRAZOLAM 0.25 MG TABLET PO SCH (10:30)
[2018-02-18] MEDS ORDERED: LISINOPRIL 5 MG TABLET PO SCH (11:30)
[2018-02-18] MEDS: ENALAPRILAT DIHYDRATE INJ/PF 1.25 MG/1 ML SDV IV PRN (12:10)
[2018-02-18 12:41] LABS: ARTERIAL BLOOD BASE EXCESS 11.5 mmol/L; ARTERIAL BLOOD FIO2 35%; ARTERIAL BLOOD H2CO3 1.44 mmol/L (1.05-1.35); ARTERIAL BLOOD HCO3 36.3 mmol/L (20-26); ARTERIAL BLOOD O2 SATURATION 91.9 % (94-98); ARTERIAL BLOOD PO2 57.8 mmHg (80-100); ARTERIAL BLOOD TOTAL CO2 37.8 mmol/L (21-25)
--- NOTE | 2018-02-18 15:26 | PROGRESS NOTE E ---
Progress Note NAME: ARIELLA JUAREZ : 1965 AGE: 52Y DATE: 02/18/2018 ROOM: 606 SUBJECTIVE: Patient is a 52-year-old -A[place]ij[place] female who came in acute respiratory failure, requiring invasive mechanical ventilation. Patient with severe COPD/asthma exacerbation with pneumonia in the left lower lobe. Patient has been afebrile for the last 24 hours. Appeared to be breathing comfortably, requiring 40% O2. Patient has increased gastric residual and G-tube feeding has been decreased intermittently. Chest CT scan today showed no pneumothorax. No pulmonary embolism. Small opacity in the left lower lobes, most likely a pneumonic process. CT scan of the belly was done today and also showed no significant acute findings in abdomen or pelvis on CT scan with IV contrast. There is no vomiting, no diarrhea. Scanty to mild endotracheal tube secretions. Patient is not wheezing this morning. Blood pressure has been coming on the high side, over 150/90 to 160/94. Patient at that time was on hydralazine 10 mg IV. Patient is getting Lasix 20 mg per NG tube daily and Cardizem 50 mg per NG tube every 6 hours. OBJECTIVE: VITAL SIGNS: Patient is sedated, afebrile. Not in apparent respiratory distress, with saturation of 93%-94% on FiO2 of 40%. SIMV rate of 20, tidal volume 400, pressure support of 10, PEEP of 6. EYES: No jaundice or pallor. EARS, NOSE AND THROAT: No ear drainage. No nasal discharge. Orotracheal tube is in place. CHEST AND LUNGS: No wheezing, no rhonchi, no coarse crackles noted. CARDIOVASCULAR: S1, S2 distant. No murmur, no regurgitation. ABDOMEN: Flabby. Positive bowel sounds. Soft, nondistended, nontender. EXTREMITIES: No joint swelling or cellulitis. LABORATORY DATA: CBC done today showed white count 13.8, hemoglobin 13.6, hematocrit 40, platelet count is 268,000. Chemistries done today showed sodium 140, potassium 3.7, chloride 100, CO2 is 32, BUN 28, creatinine 0.55, glucose is 102. Calcium is 8.2. ASSESSMENT: 1. ACUTE RESPIRATORY FAILURE, REQUIRING INVASIVE MECHANICAL VENTILATION. Currently, we are doing spontaneous breathing trial. 2. SEVERE COPD/ASTHMA IN ACUTE SEVERE EXACERBATION. Currently, seemed to be not in bronchospasm. 3. PNEUMONIA, LEFT LOWER LOBE. Small on chest CT scan. 4. SEVERE ANXIETY. PLAN AND RECOMMENDATIONS: 1. Will do spontaneous breathing trial today. If doing okay, might extubate the patient. If not, will do the spontaneous breathing trial again tomorrow. 2. Will continue to optimize ventilator therapy. 3. Optimize blood pressure control by adding lisinopril 5 mg per G-tube once daily and use Vasotec 1.25 mg every 6 hours p.r.n. if blood pressure is greater than 160 mmHg. 4. Will discontinue the hydralazine IV as it can cause also tachyarrhythmias. 5. Will decrease the Haldol to 0.5 mg per NG q.12. Will consider discontinuing the Haldol tomorrow, because it may also cause delirium, disorientation, agitation and can also prolong QT interval. DICTATING PHYSICIAN: ERICA REAL MD,ALO,MPH [id number] [id number] PHY#: [id number] ID: [id number] JOB#: [id number] ACCT: [id number] cc: > MTDD
[2018-02-18] MEDS: FLUCONAZOLE 200 MG/NS RTU 200 MG/100 ML RTUPB IV SCH (17:38)
[2018-02-18] MEDS: LEVOFLOXACIN 750 MG/D5W RTU 750 MG/150 ML RTUPB IV SCH (21:42)
[2018-02-18] MEDS ORDERED: HALOPERIDOL 0.5 MG TABLET PO SCH (22:00)
[2018-02-19] MEDS: IPRATROPIUM BROMIDE 0.02% NEB 0.5 MG/2.5 ML AMPUL NEB SCH ×6 (00:11→19:46)
[2018-02-19] MEDS: PROPOFOL 1,000 MG/100 ML INFUS..BTL IV PRN ×4 (00:38→17:45)
[2018-02-19] MEDS: HALOPERIDOL 0.5 MG TABLET NG SCH ×3 (00:38→12:19)
[2018-02-19] MEDS: METHYLPREDNISOLONE INJ 125 MG/2 ML SDV IV SCH ×4 (00:39→17:45)
[2018-02-19] MEDS: DILTIAZEM HCL 60 MG TABLET NG SCH ×4 (00:39→17:45)
[2018-02-19] MEDS: MORPHINE SULFATE 10 MG/ML INJ IV PRN ×3 (00:46→16:24)
[2018-02-19] MEDS: LANSOPRAZOLE 30 MG TAB.RAP.DR NG SCH (05:14)
[2018-02-19 06:41] LABS: ANION GAP 9 (5-19); BLOOD UREA NITROGEN 30 mg/dL (7-20); CALCIUM 8.7 mg/dL (8.4-10.2); CARBON DIOXIDE 34 mmol/L (22-30); CHLORIDE 99 mmol/L (98-107); GLUCOSE 92 mg/dL (75-110); POTASSIUM 3.7 mmol/L (3.6-5.0)
[2018-02-19] MEDS ORDERED: HALOPERIDOL 0.5 MG TABLET NG PRN (09:04)
[2018-02-19] MEDS: FUROSEMIDE 20 MG TABLET NG SCH (09:56)
[2018-02-19] MEDS: ENALAPRILAT DIHYDRATE INJ/PF 1.25 MG/1 ML SDV IV PRN (09:56)
[2018-02-19] MEDS: NICOTINE 14 MG/24 HR PATCH.TD24 TD SCH (09:56)
[2018-02-19] MEDS: ANASTROZOLE 1 MG TABLET NG SCH (09:56)
[2018-02-19] MEDS: ENOXAPARIN SODIUM INJ 40 MG/0.4 ML DISP.SYRIN SUBCUT SCH (09:57)
[2018-02-19] MEDS ORDERED: LISINOPRIL 10 MG TABLET PO SCH (10:00)
[2018-02-19] MEDS: LEVALBUTEROL HCL NEB 1.25 MG/3 ML AMPUL NEB SCH ×3 (12:04→19:46)
--- NOTE | 2018-02-19 17:17 | PDOC PROGRESS REPORT ---
Subjective Progress Note for:: 02/19/18 Subjective:: Patient remain intubated, sedated and vent supported with FiO2 currently at 50% . No reported fever. Remain off enteral tube feeding. Reason For Visit: WHEEZING,CHRONIC OBSTRUCTIVE ASTHMA WITH EXACERBAT Physical Exam Vital Signs: Temp Pulse Resp BP Pulse Ox 99.0 F 86 21 H 151/93 H 97 02/19/18 06:00 02/19/18 08:16 02/19/18 08:16 02/19/18 05:41 02/19/18 08:16 Intake & Output 02/18/18 02/19/18 02/20/18 06:59 06:59 06:59 Intake Total 1609 1520 Output Total 2565 2060 Balance -956 -540 Weight 64.8 kg 65.7 kg Physical Exam: Intubated and vent support. Sedated on IV Midazolam. ET and OG tubes in situ. Head exam: PRESENT: atraumatic, normocephalic Ear exam: PRESENT: normal external ear exam Mouth exam: PRESENT: moist Respiratory exam: PRESENT: decreased breath sounds, rhonchi, wheezes Cardiovascular exam: PRESENT: RRR. ABSENT: diastolic murmur, rubs, systolic murmur Vascular exam: PRESENT: normal capillary refill. ABSENT: pallor GI/Abdominal exam: PRESENT: normal bowel sounds, soft. ABSENT: distended, mass , tenderness Extremities exam: ABSENT: pedal edema Musculoskeletal exam: PRESENT: normal inspection Neurological exam: PRESENT: altered - sedated on titrated IV Propofol infusion Skin exam: PRESENT: dry, intact, warm Results Laboratory Results: 02/18/18 04:30 02/19/18 06:15 02/18/18 02/19/18 02/19/18 12:24 04:18 06:15 Carbonic Acid 1.44 H HCO3/H2CO3 Ratio 25:1 ABG pH 7.50 H ABG pCO2 48.0 H ABG pO2 57.8 L ABG HCO3 36.3 H ABG O2 Saturation 91.9 L ABG Base Excess 11.5 FiO2 35% Sodium Cancelled 142.0 Potassium Cancelled 3.7 Chloride Cancelled 99 Carbon Dioxide Cancelled 34 H Anion Gap Cancelled 9 BUN Cancelled 30 H Creatinine Cancelled 0.63 Est GFR ( Amer) Cancelled > 60 Est GFR (Non-Af Amer) Cancelled > 60 Glucose Cancelled 92 Calcium Cancelled 8.7 02/13/18 02/14/18 02/14/18 17:31 21:00 21:00 Creatine Kinase 286 H CK-MB (CK-2) 13.80 H Troponin I < 0.012 < 0.012 02/15/18 02/15/18 04:55 04:55 Creatine Kinase 162 H CK-MB (CK-2) 8.94 H Troponin I < 0.012 Impressions: KUB X-Ray 02/17/18 00:00 IMPRESSION: VERY LITTLE BOWEL GAS PRESENT. LIFE LINES DESCRIBED. NO RADIOGRAPHIC EVIDENCE FOR ACUTE ABDOMINAL DISEASE. Chest X-Ray 02/17/18 05:00 IMPRESSION: NO CHANGE IN APPEARANCE OF THE CHEST. Chest/Abdomen CTA 02/18/18 00:00 IMPRESSION: NORMAL CTA OF THE CHEST. NO PULMONARY EMBOLI. Abdomen/Pelvis CT 02/18/18 07:24 IMPRESSION: NO SIGNIFICANT OR ACUTE FINDING IN THE ABDOMEN OR PELVIS ON CT SCAN WITH IV CONTRAST. Assessment & Plan - Diagnosis (1) COPD with respiratory failure, acute Is this a current diagnosis for this admission?: Yes (2) Acute exacerbation of COPD with asthma Is this a current diagnosis for this admission?: Yes (3) Cigarette smoker one half pack a day or less Is this a current diagnosis for this admission?: Yes (4) Essential hypertension Is this a current diagnosis for this admission?: Yes (5) HLD (hyperlipidemia) Qualifiers: Hyperlipidemia type: unspecified Qualified Code(s): E78.5 - Hyperlipidemia , unspecified Is this a current diagnosis for this admission?: Yes (6) CVA, old, hemiparesis Is this a current diagnosis for this admission?: Yes (7) Seasonal allergic rhinitis Qualifiers: Allergic rhinitis trigger: unspecified Qualified Code(s): J30.2 - Other seasonal allergic rhinitis Is this a current diagnosis for this admission?: Yes (8) GERD (gastroesophageal reflux disease) Qualifiers: Esophagitis presence: without esophagitis Qualified Code(s): K21.9 - Gastro -esophageal reflux disease without esophagitis Is this a current diagnosis for this admission?: Yes (9) Depression Qualifiers: Depression Type: unspecified Qualified Code(s): F32.9 - Major depressive disorder, single episode, unspecified Is this a current diagnosis for this admission?: Yes (10) Status post bilateral mastectomy Is this a current diagnosis for this admission?: Yes (11) Yeast cystitis Is this a current diagnosis for this admission?: Yes - Time Time Spent with patient: 25-34 minutes Medications reviewed and adjusted accordingly: Yes Anticipated discharge: Home with Homehealth Within: Other - Inpatient Certification Based on my medical assessment, after consideration of the patient's comorbidities, presenting symptoms, or acuity I expect that the services needed warrant INPATIENT care.: Yes I certify that my determination is in accordance with my understanding of Medicare's requirements for reasonable and necessary INPATIENT services [42 CFR 412.3e].: Yes Medical Necessity: Need Close Monitoring Due to Risk of Patient Decompensation, Need For IV Fluids, Need For Continuous Telemetry Monitoring, Need for Nebulizer Therapy and Monitoring of Response, Need for Pain Control, Need for IV Antibiotics, Risk of Complication if Not Cared For in Hospital Post Hospital Care: D/C Media Sales Representative 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 Vent adjustment as per dredge pump operator input. Obtain complete TTE for cardiac structure and function evaluation to aide in her weaning process and eventual extubation. D/C haloperidol q12 dosing. Change Haloperidol to 0.5 mg [id number] prn for agitation management via NG tube.
[2018-02-19] MEDS: FLUCONAZOLE 200 MG/NS RTU 200 MG/100 ML RTUPB IV SCH (17:44)
--- NOTE | 2018-02-19 18:33 | XCELERA REPORT ---
[address] [address] Transthoracic Echocardiogram Report Name: ARIELLA JUAREZ Age: 52 yrs Gender: Female : 1965 Patient Status: Inpatient Patient Location: ICU^606^A Study Date: 02/19/2018 02:14 PM Height: 62 in Weight: 144 lb BSA: 1.7 m2 Procedure: A complete two-dimensional transthoracic echocardiogram was performed (2D, M-mode, spectral and color flow Doppler). The study was technically adequate with some images being suboptimal in quality. Reason For Study: Acute respitarory failure Ordering Physician: LUKASZ ORNELAS Performed By: Susan Tavera Interpretation Summary The left ventricular ejection fraction is normal. The left ventricle is grossly normal size. There is mild concentric left ventricular hypertrophy. Doppler measurements suggest pseudonormalized left ventricular relaxation, which is associated with grade II/IV or mild to moderate diastolic dysfunction Wall motion cannot be accurately commented on, but no definite regional wall motion abnormalities noted. The right ventricle is mildly dilated. The right ventricular systolic function is normal. The right atrium is mildly dilated. The left atrium is mildly dilated. There is a trace amount of mitral regurgitation There is no mitral valve stenosis. No aortic regurgitation is present. There is no aortic valve stenosis There is a mild amount of tricuspid regurgitation There is mild to moderate pulmonary hypertension by echo Right ventricular systolic pressure is estimated to be elevated at 40-50mmHg. The aortic root is not well visualized but is probably normal size. The inferior vena cava appeared normal and decreased < 50% with respiration (RAP 10-15 mmHg) Minimal pericardial effusion. MMode/2D Measurements & Calculations RVDd: 3.0 cm LVIDd: 3.3 cm FS: 42.9 % Ao root diam: 2.5 cm IVSd: 0.89 cm LVIDs: 1.9 cm EDV(Teich): 44.8 ml Ao root area: 4.8 cm2 LVPWd: 0.95 cm ESV(Teich): 11.1 ml LA dimension: 2.4 cm EF(Teich): 75.2 % Doppler Measurements & Calculations MV E max cristino: MV P1/2t max cristino: Ao V2 max: LV V1 max P.6 cm/sec 68.6 cm/sec 136.8 cm/sec 6.5 mmHg MV A max cristino: MV P1/2t: 61.1 msec Ao max P.5 mmHg LV V1 max: 81.4 cm/sec MVA(P1/2t): 3.6 cm2 127.3 cm/sec MV E/A: 0.83 MV dec slope: 328.7 cm/sec2 MV dec time: 0.22 sec PA V2 max: TR max cristino: MV P1/2t-pr_phl: 89.3 cm/sec 320.3 cm/sec 61.1 msec PA max PG: TR max P.0 mmHg 3.2 mmHg Left Ventricle The left ventricle is grossly normal size. There is mild concentric left ventricular hypertrophy. The left ventricular ejection fraction is normal. Doppler measurements suggest pseudonormalized left ventricular relaxation, which is associated with grade II/IV or mild to moderate diastolic dysfunction. Wall motion cannot be accurately commented on, but no definite regional wall motion abnormalities noted. Right Ventricle The right ventricle is mildly dilated. There is normal right ventricular wall thickness. The right ventricular systolic function is normal. Atria The right atrium is mildly dilated. The left atrium is mildly dilated. Interarterial septum not well visualized and not well dopplered. Cannot comment on ASD/PFO presence. Mitral Valve The mitral valve is grossly normal. There is no mitral valve stenosis. There is a trace amount of mitral regurgitation. Aortic Valve The aortic valve opens well. There is no aortic valve stenosis. No aortic regurgitation is present. Tricuspid Valve The tricuspid valve is not well visualized, but is grossly normal. There is no tricuspid stenosis. There is a mild amount of tricuspid regurgitation. There is mild to moderate pulmonary hypertension by echo. Right ventricular systolic pressure is estimated to be elevated at 40-50mmHg. Pulmonic Valve The pulmonic valve is not well visualized. Great Vessels The aortic root is not well visualized but is probably normal size. The inferior vena cava appeared normal and decreased < 50% with respiration (RAP 10-15 mmHg). Effusions Minimal pericardial effusion. : LUKASZ ORNELAS > Otilio Lamb
[2018-02-19] MEDS ORDERED: BISACODYL 10 MG SUPP.RECT PR ONE (20:00)
[2018-02-19] MEDS: LEVOFLOXACIN 750 MG/D5W RTU 750 MG/150 ML RTUPB IV SCH (21:57)
[2018-02-19] MEDS: NORMAL SALINE 1000 ML 1,000 ML IV PRN (21:58)
[2018-02-20] MEDS: IPRATROPIUM BROMIDE 0.02% NEB 0.5 MG/2.5 ML AMPUL NEB SCH ×6 (00:10→21:11)
[2018-02-20] MEDS: LEVALBUTEROL HCL NEB 1.25 MG/3 ML AMPUL NEB SCH ×6 (00:10→21:11)
--- NOTE | 2018-02-20 00:52 | RADIOLOGY REPORT (SQ) ---
XR CHEST 1 VIEW HISTORY: Central Line placement COMPARISON: 02/17/2018 FINDINGS/IMPRESSION: Interval placement of right subclavian line with the tip near the cavoatrial junction. No discernible pneumothorax. Endotracheal and enteric tubes are unchanged. Normal cardiomediastinal contours. Left lung base atelectasis/scarring. No large pleural effusion. Status post left shoulder replacement. Surgical clips are present in the surrounding soft tissues.
--- NOTE | 2018-02-20 00:57 | Operative Report ---
Operative Report DATE OF SURGERY: 02/19/18 PREOPERATIVE DIAGNOSIS: Respiratory failure POSTOPERATIVE DIAGNOSIS: Same OPERATION: 1. Insertion of right subclavian central venous access catheter. 2. interpretation of intraoperative chest x-ray SURGEON: KEVIN VILLARREAL ANESTHESIA: Local TISSUE REMOVED OR ALTERED: None COMPLICATIONS: None ESTIMATED BLOOD LOSS: Scant INTRAOPERATIVE FINDINGS: See below PROCEDURE: Informed consent was obtained. The patient was placed in Trendelenburg the right subclavian area was exposed , prepped and draped in a sterile fashion. Surgical plan and surgical timeout discussed. The right subclavian area was anesthetized with 1% lidocaine without epinephrine. An 18-gauge needle and wire were threaded into the right subclavian vein. The tract was dilated up, the dilator removed, and the triple- lumen central venous access catheter was threaded into the right subclavian vein uneventfully to the hub. There was excellent aspiration and flush of saline through all 3 lumens. The catheter was affixed to the skin with a Biopatch and 2-0 silk suture; sterile dressing applied. The patient tolerated the procedure well. There were no complications. Portable upright chest x-ray pending at time of dictation. Subsequently the portable chest x-ray was obtained. This showed no evidence of pneumothorax, tip of the catheter was in the superior vena cava right atrial junction.
[2018-02-20] MEDS: METHYLPREDNISOLONE INJ 125 MG/2 ML SDV IV SCH ×4 (02:50→17:24)
[2018-02-20] MEDS: MORPHINE SULFATE 10 MG/ML INJ IV PRN ×4 (02:50→22:02)
[2018-02-20] MEDS: DILTIAZEM HCL 60 MG TABLET NG SCH ×5 (02:51→23:48)
[2018-02-20 05:43] LABS: HEMATOCRIT 38.1 % (36.0-47.0); HEMOGLOBIN 12.8 g/dL (12.0-15.5); MEAN CORPUSCULAR HEMOGLOBIN 32.2 pg (27.0-33.4); MEAN CORPUSCULAR HGB CONC 33.6 g/dL (32.0-36.0); MEAN CORPUSCULAR VOLUME 96 fl (80-97); PLATELET COUNT 277 10^3/uL (150-450); RED BLOOD COUNT 3.98 10^6/uL (3.72-5.28); RED CELL DISTRIBUTION WIDTH 12.6 % (11.5-14.0); WHITE BLOOD COUNT 10.9 10^3/uL (4.0-10.5)
[2018-02-20 05:50] LABS: ANION GAP 8 (5-19); BLOOD UREA NITROGEN 25 mg/dL (7-20); CALCIUM 8.2 mg/dL (8.4-10.2); CARBON DIOXIDE 33 mmol/L (22-30); CHLORIDE 99 mmol/L (98-107); GLUCOSE 109 mg/dL (75-110)
[2018-02-20 05:53] LABS: POTASSIUM 2.9 mmol/L (3.6-5.0)
[2018-02-20 06:12] LABS: ABSOLUTE LYMPHOCYTES# (MANUAL) 0.7 10^3/uL (0.5-4.7); ABSOLUTE MONOCYTES # (MANUAL) 0.9 10^3/uL (0.1-1.4); ABSOLUTE NEUTROPHILS# (MANUAL) 9.4 10^3/uL (1.7-8.2); BASOPHILS % (MANUAL) 0 % (0-2); EOSINOPHILS % (MANUAL) 0 % (0-6); HYPERSEGMENTED NEUTROPHILS PRESENT; LYMPHOCYTES % (MANUAL) 6 % (13-45); MONOCYTES % (MANUAL) 8 % (3-13); NUCLEATED RED BLOOD CELLS 1 /100 WBC (0); POIKILOCYTOSIS SLIGHT; SEGMENTED NEUTROPHILS % (MAN) 86 % (42-78); TOTAL CELLS COUNTED 100; TOXIC GRANULATION 1+
[2018-02-20 06:12] LABS: ARTERIAL BLOOD BASE EXCESS 5.7 mmol/L; ARTERIAL BLOOD H2CO3 1.12 mmol/L (1.05-1.35); ARTERIAL BLOOD HCO3 28.9 mmol/L (20-26); ARTERIAL BLOOD O2 SATURATION 95.2 % (94-98); ARTERIAL BLOOD PCO2 37.1 mmHg (35-45); ARTERIAL BLOOD PH 7.51 (7.35-7.45); ARTERIAL BLOOD PO2 68.2 mmHg (80-100)
[2018-02-20 06:13] LABS: OVALOCYTES SLIGHT; PLATELET COMMENT ADEQUATE; PLATELET LARGE PRESENT; SCHISTOCYTES SLIGHT
[2018-02-20 06:14] LABS: ARTERIAL BLOOD FIO2 40%
[2018-02-20] MEDS: LANSOPRAZOLE 30 MG TAB.RAP.DR NG SCH (06:19)
[2018-02-20] MEDS: PROPOFOL 1,000 MG/100 ML INFUS..BTL IV PRN ×3 (06:21→22:06)
--- NOTE | 2018-02-20 06:36 | RADIOLOGY REPORT (SQ) ---
EXAM DESCRIPTION: XR CHEST 1 VIEW COMPLETED DATE/TME: 02/20/2018 05:00 CLINICAL HISTORY: 52 years Female, on ventilator COMPARISON: Same day. NUMBER OF VIEWS/TECHNIQUE: 1/AP FINDINGS: Emphysematous hyperinflation, normal cardiac silhouette, atherosclerosis, tip of a right subclavian central line at the cavoatrial junction, adequate appearing an enteric tube obscured distally, endotracheal tube tip is 6.5-cm from the chadwick, left lateral thoracic clips, left shoulder arthroplasty, right midthoracic clips. No pneumothorax. Stable bony thorax. IMPRESSION: No significant change.
--- NOTE | 2018-02-20 07:53 | PDOC PROGRESS REPORT ---
Subjective Progress Note for:: 02/20/18 Subjective:: Remain intubated and vent supported. Tolerating low rate enteral tube feeding. No reported fever or diarrhea. Reason For Visit: WHEEZING,CHRONIC OBSTRUCTIVE ASTHMA WITH EXACERBAT Physical Exam Vital Signs: Temp Pulse Resp BP Pulse Ox 99.1 F 97 12 165/85 H 93 02/20/18 06:00 02/20/18 03:58 02/20/18 06:00 02/20/18 05:35 02/20/18 06:00 Intake & Output 02/19/18 02/20/18 02/21/18 06:59 06:59 06:59 Intake Total 1770 1290 Output Total 2060 2950 Balance -290 -1660 Weight 65.7 kg 65.2 kg Physical Exam: Intubated and vent support. Sedated on titrated IV Propofol infusion. ET and OG tubes in situ. Head exam: PRESENT: atraumatic, normocephalic Ear exam: PRESENT: normal external ear exam Mouth exam: PRESENT: moist Respiratory exam: PRESENT: decreased breath sounds, minimal expiratory rhonchi Cardiovascular exam: PRESENT: RRR. ABSENT: diastolic murmur, rubs, systolic murmur Vascular exam: PRESENT: normal capillary refill. ABSENT: pallor GI/Abdominal exam: PRESENT: normal bowel sounds, soft. ABSENT: distended, mass , tenderness Extremities exam: ABSENT: pedal edema Musculoskeletal exam: PRESENT: normal inspection Neurological exam: PRESENT: altered - sedated on titrated IV Propofol infusion Skin exam: PRESENT: dry, intact, warm Results Laboratory Results: 02/20/18 05:03 02/20/18 05:03 02/20/18 02/20/18 02/20/18 05:03 05:03 05:03 WBC 10.9 H RBC 3.98 Hgb 12.8 Hct 38.1 MCV 96 MCH 32.2 MCHC 33.6 RDW 12.6 Plt Count 277 Seg Neutrophils % Not Reportable Lymphocytes % Not Reportable Monocytes % Not Reportable Eosinophils % Not Reportable Basophils % Not Reportable Absolute Neutrophils Not Reportable Absolute Lymphocytes Not Reportable Absolute Monocytes Not Reportable Absolute Eosinophils Not Reportable Absolute Basophils Not Reportable Carbonic Acid HCO3/H2CO3 Ratio ABG pH ABG pCO2 ABG pO2 ABG HCO3 ABG O2 Saturation ABG Base Excess FiO2 Sodium 140.0 Potassium 2.9 L* Chloride 99 Carbon Dioxide 33 H Anion Gap 8 BUN 25 H Creatinine 0.57 Est GFR ( Amer) > 60 Est GFR (Non-Af Amer) > 60 Glucose 109 Calcium 8.2 L Magnesium 2.3 02/20/18 05:45 WBC RBC Hgb Hct MCV MCH MCHC RDW Plt Count Seg Neutrophils % Lymphocytes % Monocytes % Eosinophils % Basophils % Absolute Neutrophils Absolute Lymphocytes Absolute Monocytes Absolute Eosinophils Absolute Basophils Carbonic Acid 1.12 HCO3/H2CO3 Ratio 25:1 ABG pH 7.51 H ABG pCO2 37.1 ABG pO2 68.2 L ABG HCO3 28.9 H ABG O2 Saturation 95.2 ABG Base Excess 5.7 FiO2 40% Sodium Potassium Chloride Carbon Dioxide Anion Gap BUN Creatinine Est GFR ( Amer) Est GFR (Non-Af Amer) Glucose Calcium Magnesium 02/13/18 02/14/18 02/14/18 17:31 21:00 21:00 Creatine Kinase 286 H CK-MB (CK-2) 13.80 H Troponin I < 0.012 < 0.012 02/15/18 02/15/18 04:55 04:55 Creatine Kinase 162 H CK-MB (CK-2) 8.94 H Troponin I < 0.012 Impressions: KUB X-Ray 02/17/18 00:00 IMPRESSION: VERY LITTLE BOWEL GAS PRESENT. LIFE LINES DESCRIBED. NO RADIOGRAPHIC EVIDENCE FOR ACUTE ABDOMINAL DISEASE. Chest/Abdomen CTA 02/18/18 00:00 IMPRESSION: NORMAL CTA OF THE CHEST. NO PULMONARY EMBOLI. Abdomen/Pelvis CT 02/18/18 07:24 IMPRESSION: NO SIGNIFICANT OR ACUTE FINDING IN THE ABDOMEN OR PELVIS ON CT SCAN WITH IV CONTRAST. Chest X-Ray 02/20/18 05:00 IMPRESSION: No significant change. Assessment & Plan - Diagnosis (1) COPD with respiratory failure, acute Is this a current diagnosis for this admission?: Yes (2) Acute exacerbation of COPD with asthma Is this a current diagnosis for this admission?: Yes (3) Cigarette smoker one half pack a day or less Is this a current diagnosis for this admission?: Yes (4) Essential hypertension Is this a current diagnosis for this admission?: Yes Plan: Increase Lisinopril to 20 mg via OG tube daily. (5) HLD (hyperlipidemia) Qualifiers: Hyperlipidemia type: unspecified Qualified Code(s): E78.5 - Hyperlipidemia , unspecified Is this a current diagnosis for this admission?: Yes (6) CVA, old, hemiparesis Is this a current diagnosis for this admission?: Yes (7) Seasonal allergic rhinitis Qualifiers: Allergic rhinitis trigger: unspecified Qualified Code(s): J30.2 - Other seasonal allergic rhinitis Is this a current diagnosis for this admission?: Yes (8) GERD (gastroesophageal reflux disease) Qualifiers: Esophagitis presence: without esophagitis Qualified Code(s): K21.9 - Gastro -esophageal reflux disease without esophagitis Is this a current diagnosis for this admission?: Yes (9) Depression Qualifiers: Depression Type: unspecified Qualified Code(s): F32.9 - Major depressive disorder, single episode, unspecified Is this a current diagnosis for this admission?: Yes (10) Status post bilateral mastectomy Is this a current diagnosis for this admission?: Yes (11) Yeast cystitis Is this a current diagnosis for this admission?: Yes (12) Hypokalemia due to loss of potassium Is this a current diagnosis for this admission?: Yes Plan: Patient is currently on Furosemide therapy to reduce fluid overload as well as achieve some degree of vasodilatation. She will receive potassium replacement and will consider supplementation of the problem persist. - Time Time Spent with patient: 25-34 minutes Medications reviewed and adjusted accordingly: Yes Anticipated discharge: Home with Homehealth Within: Other - Inpatient Certification Based on my medical assessment, after consideration of the patient's comorbidities, presenting symptoms, or acuity I expect that the services needed warrant INPATIENT care.: Yes I certify that my determination is in accordance with my understanding of Medicare's requirements for reasonable and necessary INPATIENT services [42 CFR 412.3e].: Yes Medical Necessity: Need Close Monitoring Due to Risk of Patient Decompensation, Need For IV Fluids, Need For Continuous Telemetry Monitoring, Need for Nebulizer Therapy and Monitoring of Response, Need for Pain Control, Need for IV Antibiotics, Risk of Complication if Not Cared For in Hospital 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
[2018-02-20] MEDS: POTASSI CL 20 MEQ/50 ML RIDER 20 MEQ/50 ML RTUPB IV SCH ×3 (08:18→12:00)
[2018-02-20] MEDS ORDERED: ALPRAZOLAM 0.25 MG TABLET NG SCH (08:30)
[2018-02-20] MEDS: ALPRAZOLAM 0.25 MG TABLET NG PRN (08:35)
[2018-02-20] MEDS: NICOTINE 14 MG/24 HR PATCH.TD24 TD SCH (09:19)
[2018-02-20] MEDS: ENOXAPARIN SODIUM INJ 40 MG/0.4 ML DISP.SYRIN SUBCUT SCH (09:20)
[2018-02-20] MEDS: FUROSEMIDE 20 MG TABLET NG SCH (09:22)
[2018-02-20] MEDS: LISINOPRIL 10 MG TABLET PO SCH (09:22)
[2018-02-20] MEDS: ANASTROZOLE 1 MG TABLET NG SCH (09:23)
--- NOTE | 2018-02-20 11:54 | PDOC CONSULTATION ---
Consultation Consult Date: 02/20/18 Attending physician:: LUKASZ ORNELAS Consult reason:: Ventricular tachycardia History of Present Illness Admission Date/PCP: 02/11/18 09:40 LUKASZ ORNELAS Patient complains of: Currently intubated and sedated. History of Present Illness: ARIELLA JUAREZ is a 52 year old female known to my practice who presented to the ED with listed complain. She was recently seen at the office for similar complain and diagnosed with acute bronchitis, started on Augmentin and Methylprednisolone tapering regimen. She claimed compliance with medications but due to worsening difficulty with breathing presented to ED. She continue to experience minimally productive coughing, wheezing and shortness of breath with minimal exertion. She denied any fever or chills. No sinus or nasal congestion. She denied ongoing smoking but usually smoke about 1/2 PPD. No associated chest pain but reported that her heart was racing. Her morbidities include Hypertension, Congestive Heart Failure, Hyperlipidemia, Asthma, COPD, Stroke with minimal left sided paresis, Bilateral breast cancer s/p bilateral mastectomy, Gastroesophageal Reflux Disease, Hiatal Hernia, Nicotine dependence and depression. She was advised hospitalization due to her minimal response of outpatient management and ED management with bronchodilators. This admission history obtained by the traffic warehouse supervisor was reviewed and confirmed. Subsequently patient was noted to be deteriorating and got moved to the unit, intubated and sedated. This morning she was noted to have a short run of wide-complex tachycardia. Her potassium was noted to be 2.9. She had a echocardiogram yesterday which showed relatively well-preserved LVEF. I been asked to evaluate patient because of intermittent tachycardia and nonsustained run of wide-complex tachycardia, presumed to be ventricular tachycardia. Past Medical History Cardiac Medical History: Reports: Congestive Heart Failure, Hyperlipidema Denies: Coronary Artery Disease, Myocardial Infarction, Hypertension Pulmonary Medical History: Reports: Asthma, Bronchitis, Chronic Obstructive Pulmonary Disease (COPD), Pneumonia Denies: Respiratory Failure, Sleep Apnea, Tuberculosis Neurological Medical History: Denies: Seizures Endocrine Medical History: Malignancy Medical History: Reports: Breast Cancer GI Medical History: Reports: Gastroesophageal Reflux Disease, Hiatal Hernia Musculoskeltal Medical History: Denies: Arthritis Psychiatric Medical History: Reports: Depression Denies: Dementia Hematology: Denies: Anemia Past Surgical History Past Surgical History: Reports: Mastectomy - bilat 2010 Denies: Hysterectomy, Pacemaker Social History Information Source: Relative Lives with: Family Smoking Status: Current Every Day Smoker Cigarettes Packs Per Day: 1 Last Time Smoked: 02/08/2018 Frequency of Alcohol Use: Social Hx Recreational Drug Use: No Drugs: None Hx Prescription Drug Abuse: No - Advance Directive Resuscitation Status: Full Code Surrogate healthcare decision maker:: Patient sister is the surrogate decision-maker Family History Family History: Hypertension Parental Family History Reviewed: Yes Children Family History Reviewed: Yes Sibling(s) Family History Reviewed.: Yes Medication/Allergy Home Medications: Albuterol Sulfate [Proair HFA Inhalation Aerosol 8.5 gm MDI] 1 puff IH Q4HP PRN 02/11/18 Anastrozole [Arimidex 1 mg Tablet] 1 mg PO DAILY 02/11/18 Azelastine HCl 2 spray NASL BID 02/11/18 Benzonatate [Tessalon Perles 100 mg Capsule] 200 mg PO TIDP PRN 02/11/18 Budesonide/Formoterol Fumarate [Symbicort 160-4.5 Mcg Inhaler] 2 puff IH Q12 Lansoprazole [Prevacid] 30 mg PO DAILY 02/11/18 Linaclotide [Linzess] 14 mcg PO DAILY 02/11/18 Lisinopril [Prinivil] 20 mg PO DAILY 02/11/18 Megestrol Acetate 20 ml PO DAILY 02/11/18 Montelukast Sodium [Singulair 10 mg Tablet] 10 mg PO QHS 02/11/18 Rivaroxaban [Xarelto] 20 mg PO WSUPPER 02/11/18 Tiotropium [place] [Spiriva Handihaler 5 Cap/Kit (18 Mcg/Cap)] 1 puff IH DAILY 02/11/18 Digoxin [Lanoxin 0.125 mg Tablet] 0.125 mg PO DAILY #30 tablet 03/02/18 Diltiazem HCl [Cardizem Cd 180 mg Capsule] 1 cap.sr PO Q12 #60 cap.sr 03/02/18 Dronedarone Hydrochloride [Multaq 400 mg Tablet] 400 mg PO Q12 #60 tablet Furosemide [Lasix 20 mg Tablet] 20 mg PO DAILY #30 tablet 03/02/18 Gabapentin [Neurontin 100 mg Capsule] 100 mg PO QHS #30 capsule 03/02/18 Levalbuterol HCl [Xopenex Neb 1.25 mg/3 ml Ampul] 1.25 mg NEB RTQ4 #120 vial.neb 03/02/18 Methylprednisolone [Medrol 4 mg Tablet] 4 mg PO ASDIR PRN #14 tablet 03/02/18 Nicotine [Nicoderm 14 mg/24 Hr Transdermal Patch] 1 each TD DAILY #30 patch.td24 03/02/18 Potassium Chloride 20 meq PO DAILY #30 tablet.er 03/02/18 Allergies/Adverse Reactions: prednisone [Prednisone] Adverse Reaction (Intermediate, Verified 11/21/17 18:46) Review of Systems ROS unobtainable: Due to endotracheal tube Physical Exam Vital Signs: Temp Pulse Resp BP Pulse Ox 98.8 F 90 7 L 140/86 H 96 02/20/18 10:00 02/20/18 08:00 02/20/18 10:00 02/20/18 09:35 02/20/18 10:00 Intake & Output 02/19/18 02/20/18 02/21/18 06:59 06:59 06:59 Intake Total 1770 1540 117 Output Total 2060 2950 170 Balance -290 -1410 -53 Weight 65.7 kg 65.2 kg Exam: GENERAL: well-nourished and in no acute distress. Patient is intubated and sedated. Orientation cannot be checked HEAD: Atraumatic, normocephalic. EYES: Pupils equal round and reactive to light, extraocular movements could not be checked, sclera anicteric, conjunctiva are normal. ENT: TMs normal, nares patent, oropharynx clear without exudates. Moist mucous membranes. No oral ulcerations or bleeding gums noted NECK: supple without lymphadenopathy or JVD. Trachea is central. No cervical or axillary lymphadenopathy noted. Carotids are 2+ LUNGS: Breath sounds mostly clear to auscultation patient is noted to have bibasal crackles at the extreme bases CHEST: Palpation of the chest wall shows no significant chest wall tenderness or abnormalities. Bilateral mastectomy noted. 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 ABDOMEN: Soft, no significant tenderness appreciated, normoactive bowel sounds. No guarding, no rebound. No rigidity noted . No masses appreciated. EXTREMITIES: Pedal pulses are 1-2+, no calf tenderness noted, 1+ pedal edema noted. No clubbing or cyanosis. Upper extremity edema also noted. NEUROLOGICAL: The patient cannot participate in the neurological exam but no facial asymmetry noted. Extremities slightly hypotonic PSYCH: This cannot be evaluated. Patient cannot participate. SKIN: No significant ecchymosis, rash, or signs of pruritus noted. MUSCULOSKELETAL EXAM: No significant joint swelling noted. Patient cannot participate in musculoskeletal exam Results Laboratory Results: 02/20/18 05:03 02/20/18 05:03 02/20/18 02/20/18 02/20/18 05:03 05:03 05:03 WBC 10.9 H RBC 3.98 Hgb 12.8 Hct 38.1 MCV 96 MCH 32.2 MCHC 33.6 RDW 12.6 Plt Count 277 Seg Neutrophils % Not Reportable Lymphocytes % Not Reportable Monocytes % Not Reportable Eosinophils % Not Reportable Basophils % Not Reportable Absolute Neutrophils Not Reportable Absolute Lymphocytes Not Reportable Absolute Monocytes Not Reportable Absolute Eosinophils Not Reportable Absolute Basophils Not Reportable Carbonic Acid HCO3/H2CO3 Ratio ABG pH ABG pCO2 ABG pO2 ABG HCO3 ABG O2 Saturation ABG Base Excess FiO2 Sodium 140.0 Potassium 2.9 L* Chloride 99 Carbon Dioxide 33 H Anion Gap 8 BUN 25 H Creatinine 0.57 Est GFR ( Amer) > 60 Est GFR (Non-Af Amer) > 60 Glucose 109 Calcium 8.2 L Magnesium 2.3 02/20/18 05:45 WBC RBC Hgb Hct MCV MCH MCHC RDW Plt Count Seg Neutrophils % Lymphocytes % Monocytes % Eosinophils % Basophils % Absolute Neutrophils Absolute Lymphocytes Absolute Monocytes Absolute Eosinophils Absolute Basophils Carbonic Acid 1.12 HCO3/H2CO3 Ratio 25:1 ABG pH 7.51 H ABG pCO2 37.1 ABG pO2 68.2 L ABG HCO3 28.9 H ABG O2 Saturation 95.2 ABG Base Excess 5.7 FiO2 40% Sodium Potassium Chloride Carbon Dioxide Anion Gap BUN Creatinine Est GFR ( Amer) Est GFR (Non-Af Amer) Glucose Calcium Magnesium 02/13/18 02/14/18 02/14/18 17:31 21:00 21:00 Creatine Kinase 286 H CK-MB (CK-2) 13.80 H Troponin I < 0.012 < 0.012 02/15/18 02/15/18 04:55 04:55 Creatine Kinase 162 H CK-MB (CK-2) 8.94 H Troponin I < 0.012 EKG Comments: Sinus rhythm, early repolarization changes are noted. Impressions: KUB X-Ray 02/17/18 00:00 IMPRESSION: VERY LITTLE BOWEL GAS PRESENT. LIFE LINES DESCRIBED. NO RADIOGRAPHIC EVIDENCE FOR ACUTE ABDOMINAL DISEASE. Chest/Abdomen CTA 02/18/18 00:00 IMPRESSION: NORMAL CTA OF THE CHEST. NO PULMONARY EMBOLI. Abdomen/Pelvis CT 02/18/18 07:24 IMPRESSION: NO SIGNIFICANT OR ACUTE FINDING IN THE ABDOMEN OR PELVIS ON CT SCAN WITH IV CONTRAST. Chest X-Ray 02/20/18 05:00 IMPRESSION: No significant change. Assessment & Plan - Diagnosis (1) Wide-complex tachycardia Is this a current diagnosis for this admission?: Yes (2) Tachycardia Is this a current diagnosis for this admission?: Yes (3) Acute exacerbation of COPD with asthma Is this a current diagnosis for this admission?: Yes (4) COPD with respiratory failure, acute Is this a current diagnosis for this admission?: Yes (5) Hypokalemia due to loss of potassium Is this a current diagnosis for this admission?: Yes (6) Essential hypertension Is this a current diagnosis for this admission?: Yes - Notes Notes: Wide-complex tachycardia: Patient noted to have wide-complex tachycardia. This was nonsustained. Possible atrial fibrillation with aberrancy. Potassium is noted to be low. Recommend replacing potassium and magnesium. Patient LVEF was noted to be normal therefore low risk of going into any sustained cardiac dysrhythmia. Once more stable, and ischemia evaluation could be performed. Tachycardia: Possibly related to underlying metabolic reasons. Patient could be getting too much beta2 stimulation. May consider switching to Xopenex unless it has already been done. Acute exacerbation of COPD with asthma: Patient being well managed by traffic warehouse supervisor and other specialist involved. Hypokalemia: Recommend replacement. Try to keep potassium above 3.8 mEq/L. Hypertension: Blood pressure seems under reasonable control. CVA : Currently stable. We will continue to follow patient. - Time Time Spent: 30 to 50 Minutes - CODE STATUS was discussed, patient remains full code. Surrogate decision-maker unchanged. Multiple medical problems were addressed. More than 50% of the time spent coordinating care, discussing management plans with involved caregivers. Management plans discussed with involved personnels. Medical decision making was of moderate to high complexity , patient's has multiple comorbidities. Medications reviewed and adjusted accordingly: Yes
[2018-02-20] MEDS: NORMAL SALINE 1000 ML 1,000 ML IV PRN (12:47)
--- NOTE | 2018-02-20 16:22 | PROGRESS NOTE E ---
Progress Note NAME: ARIELLA JUAREZ : 1965 AGE: 52Y DATE: 02/19/2018 ROOM: 606 SUBJECTIVE: Patient is a 52-year-old -[place] female who came in with acute respiratory failure requiring invasive mechanical ventilation. Patient did not have any temperature spike over the last 24 hours. Patient has developed paralytic ileus causing increased gastric residual and the G-tube feeding was held a few times. Has hypoactive bowel sounds. Has scanty endotracheal secretions. No vomiting. No diarrhea. PHYSICAL EXAMINATION: GENERAL: Patient appears sedated, afebrile, not in acute respiratory distress. VITAL SIGNS: Temperature of 98.6 with a T-max of 99.7 degrees, pulse rate is 93, blood pressure is 134/75, saturation is 91% on 40% FiO2, pressure support of 10, PEEP of 5, SIMV rate of 20, and tidal volume of 400. EYES: No jaundice or pallor. EARS, NOSE AND THROAT: No ear drainage noted. No nasal discharge. HEAD AND NECK: No scalp tenderness. No neck tenderness. CHEST AND LUNGS: No wheezing. No rhonchi noted. No coarse crackles. CARDIOVASCULAR: S1, S2 distinct. Normal rate, regular rhythm. ABDOMEN: Hypoactive bowel sounds. Soft, nondistended. EXTREMITIES: No joint swelling. No cellulitis. LABORATORY DATA: No CBC done today. Chemistry done today showed sodium is 142, potassium is 3.7, chloride 99, CO2 is 34, BUN 30, creatinine 0.63, glucose is 92, and calcium is 8.7. ASSESSMENT: 1. ACUTE RESPIRATORY FAILURE REQUIRING INVASIVE MECHANICAL VENTILATION APPEARS TO BE IMPROVING, HAS SCANTY ENDOTRACHEAL TUBE SECRETIONS. HAS NO FEVER, WHITE COUNT IS SLIGHTLY ELEVATED AT 13,000. 2. PNEUMONIA APPEARS TO BE IMPROVING. 3. COPD EXACERBATION, CURRENTLY NOT IN ACUTE BRONCHOSPASM. 4. PARALYTIC ILEUS. PLAN AND RECOMMENDATIONS: 1. We will do a sedation vacation tomorrow and every day thereafter. 2. We will do a spontaneous breathing trial every day when the patient is fully awake. We will consider extubation if this is doing well and tolerating the sedation vacation and the spontaneous breathing trial. 3. We will continue Levaquin 750 mg IV piggyback. 4. We will cut down the solumedrol to 40 mg q. 6 hours. DICTATING PHYSICIAN: ERICA REAL MD,ALO,MPH [id number] PHY#: [id number] [id number] JOB#: [id number] ACCT: [id number] cc: > MTDD
[2018-02-20 16:26] LABS: ANION GAP 6 (5-19); BLOOD UREA NITROGEN 24 mg/dL (7-20); CALCIUM 8.3 mg/dL (8.4-10.2); CARBON DIOXIDE 34 mmol/L (22-30); CHLORIDE 100 mmol/L (98-107); GLUCOSE 106 mg/dL (75-110); POTASSIUM 3.4 mmol/L (3.6-5.0); SODIUM 139.8 mmol/L (137-145)
[2018-02-20] MEDS ORDERED: POTASSIUM CHLORIDE 20 MEQ/15 ML UDCUP NG ONE (17:30)
[2018-02-20] MEDS: FLUCONAZOLE 200 MG/NS RTU 200 MG/100 ML RTUPB IV SCH (17:40)
[2018-02-20] MEDS ORDERED: METHYLPREDNISOLONE INJ 125 MG/2 ML SDV IV SCH (22:00)
[2018-02-20] MEDS: METHYLPREDNISOLONE INJ 40 MG/1 ML SDV IV SCH (22:03)
[2018-02-20] MEDS: LEVOFLOXACIN 750 MG/D5W RTU 750 MG/150 ML RTUPB IV SCH (22:03)
[2018-02-21] MEDS: LEVALBUTEROL HCL NEB 1.25 MG/3 ML AMPUL NEB SCH ×6 (00:26→21:05)
[2018-02-21] MEDS: IPRATROPIUM BROMIDE 0.02% NEB 0.5 MG/2.5 ML AMPUL NEB SCH ×6 (00:26→21:05)
[2018-02-21] MEDS: NORMAL SALINE 1000 ML 1,000 ML IV PRN ×2 (04:30→19:10)
[2018-02-21] MEDS: DILTIAZEM HCL 60 MG TABLET NG SCH ×3 (05:28→17:18)
[2018-02-21] MEDS: METHYLPREDNISOLONE INJ 40 MG/1 ML SDV IV SCH ×3 (05:29→21:15)
[2018-02-21] MEDS: LANSOPRAZOLE 30 MG TAB.RAP.DR NG SCH (05:29)
[2018-02-21] MEDS: PROPOFOL 1,000 MG/100 ML INFUS..BTL IV PRN (05:29)
[2018-02-21 05:55] LABS: BLOOD UREA NITROGEN 25 mg/dL (7-20); CALCIUM 7.7 mg/dL (8.4-10.2); CARBON DIOXIDE 33 mmol/L (22-30); GLUCOSE 116 mg/dL (75-110)
[2018-02-21 05:58] LABS: ANION GAP 7 (5-19); CHLORIDE 101 mmol/L (98-107); SODIUM 140.8 mmol/L (137-145)
[2018-02-21 06:02] LABS: POTASSIUM 3.5 mmol/L (3.6-5.0)
[2018-02-21] MEDS: ALPRAZOLAM 0.25 MG TABLET NG PRN (08:47)
[2018-02-21] MEDS: LISINOPRIL 10 MG TABLET PO SCH (09:12)
[2018-02-21] MEDS: ANASTROZOLE 1 MG TABLET NG SCH (09:12)
[2018-02-21] MEDS: FUROSEMIDE 20 MG TABLET NG SCH (09:12)
[2018-02-21] MEDS: ENOXAPARIN SODIUM INJ 40 MG/0.4 ML DISP.SYRIN SUBCUT SCH (09:13)
[2018-02-21] MEDS: NICOTINE 14 MG/24 HR PATCH.TD24 TD SCH (09:14)
[2018-02-21 10:07] LABS: ARTERIAL BLOOD BASE EXCESS 6.7 mmol/L; ARTERIAL BLOOD H2CO3 1.25 mmol/L (1.05-1.35); ARTERIAL BLOOD HCO3 30.7 mmol/L (20-24); ARTERIAL BLOOD O2 SATURATION 91.8 % (94-98); ARTERIAL BLOOD PCO2 41.5 mmHg (35-45); ARTERIAL BLOOD PH 7.49 (7.35-7.45); ARTERIAL BLOOD PO2 57.4 mmHg (80-100)
[2018-02-21 10:08] LABS: ARTERIAL BLOOD FIO2 30%
--- NOTE | 2018-02-21 13:51 | PROGRESS NOTE E ---
Progress Note NAME: ARIELLA JUAREZ : 1965 AGE: 52Y DATE: 02/20/2018 ROOM: 606 SUBJECTIVE: Patient is a 52-year-old -[place] female who came in with respiratory failure requiring invasive mechanical ventilation. Had severe COPD/asthma exacerbation and pneumoniaresidual this morning and last night but appeared to be improving this afternoon. Able to tolerate G-tube feedings at 20 mL/hour. No vomiting noted. No diarrhea. Patient was doing spontaneous breathing trial today. There was profuse endotracheal tube secretions requiring frequent suction almost every hour. PHYSICAL EXAMINATION: EYES: No jaundice or pallor. EARS, NOSE AND THROAT: No ear drainage noted. No nasal discharge. HEAD AND NECK: No scalp tenderness. No neck tenderness. CHEST AND LUNGS: No wheezing. No rhonchi. No coarse crackles. CARDIOVASCULAR: S1, S2 distinct. Normal rate, regular rhythm. ABDOMEN: Flabby. Positive bowel sounds. Soft, nondistended, nontender. EXTREMITIES: No joint swelling. No cellulitis. LABORATORY DATA: CBC done today showed white count of 10.9, hemoglobin is 12.8, hematocrit is 31.1, platelet count is 277. ABGs done this morning showed pH 7.51, pO2 of 68, bicarbonate is 28.9. Chemistry done today showed sodium is 139, potassium is 3.4, chloride 100, CO2 is 34, BUN 34, creatinine 0.61, glucose is 106, and calcium is 8.3. Chest x-ray showed no pneumothorax following central line placement. No pleural effusion. ASSESSMENT: 1. ACUTE RESPIRATORY FAILURE REQUIRING INVASIVE MECHANICAL VENTILATION. PATIENT APPEARED TO BE NOT READY TO BE EXTUBATED AT THIS TIME. PATIENT HAS A LOT OF ENDOTRACHEAL TUBE SECRETIONS. 2. PNEUMONIA, LEFT LOWER LOBE. APPEARS TO BE IMPROVING. WHITE COUNT IS NORMAL. PLAN AND RECOMMENDATIONS: 1. Will do sedation vacation every morning and do a spontaneous breathing trial every night. 2. Continue nebulizer treatment. 3. Will cut down the Solumedrol dose to 20 mg IV q.8. DICTATING PHYSICIAN: ERICA REAL MD,ALO,MPH [id number] PHY#: [id number] ID: [id number] JOB#: [id number] ACCT: [id number] cc: > MTDD
[2018-02-21] MEDS: FLUCONAZOLE 200 MG/NS RTU 200 MG/100 ML RTUPB IV SCH (17:18)
[2018-02-21 18:06] LABS: POTASSIUM 3.3 mmol/L (3.6-5.0)
--- NOTE | 2018-02-21 18:39 | PDOC PROGRESS REPORT ---
Subjective Progress Note for:: 02/21/18 Subjective:: Patient remain intubated and vent supported with some gain in decrease need for FIO support down to 35 %. No reported fever. Tolerating enteral tube feeding. Reason For Visit: WHEEZING,CHRONIC OBSTRUCTIVE ASTHMA WITH EXACERBAT Physical Exam Vital Signs: Temp Pulse Resp BP Pulse Ox 100.0 F 100 15 158/86 H 93 02/21/18 18:00 02/21/18 17:36 02/21/18 18:00 02/21/18 17:49 02/21/18 18:00 Intake & Output 02/20/18 02/21/18 02/22/18 06:59 06:59 06:59 Intake Total 1540 2621 329 Output Total 2950 2715 2300 Balance -1409 Weight 65.2 kg 66.3 kg Physical Exam: Intubated and vent support. ET and OG tubes in situ. Head exam: PRESENT: atraumatic, normocephalic Ear exam: PRESENT: normal external ear exam Mouth exam: PRESENT: moist Respiratory exam: PRESENT: decreased breath sounds, minimal expiratory rhonchi Cardiovascular exam: PRESENT: RRR. ABSENT: diastolic murmur, rubs, systolic murmur Vascular exam: PRESENT: normal capillary refill. ABSENT: pallor GI/Abdominal exam: PRESENT: normal bowel sounds, soft. ABSENT: distended, mass , tenderness Extremities exam: ABSENT: pedal edema Musculoskeletal exam: PRESENT: normal inspection Neurological exam: PRESENT: awake Skin exam: PRESENT: dry, intact, warm Results Laboratory Results: 02/20/18 05:03 02/21/18 17:25 02/21/18 02/21/18 02/21/18 05:30 05:30 09:25 Carbonic Acid 1.25 HCO3/H2CO3 Ratio 24:1 ABG pH 7.49 H ABG pCO2 41.5 ABG pO2 57.4 L ABG HCO3 30.7 H ABG O2 Saturation 91.8 L ABG Base Excess 6.7 FiO2 30% Sodium 140.8 Potassium 3.5 L Chloride 101 Carbon Dioxide 33 H Anion Gap 7 BUN 25 H Creatinine 0.55 Est GFR ( Amer) > 60 Est GFR (Non-Af Amer) > 60 Glucose 116 H Calcium 7.7 L Magnesium 2.3 02/21/18 17:25 Carbonic Acid HCO3/H2CO3 Ratio ABG pH ABG pCO2 ABG pO2 ABG HCO3 ABG O2 Saturation ABG Base Excess FiO2 Sodium Potassium 3.3 L Chloride Carbon Dioxide Anion Gap BUN Creatinine Est GFR ( Amer) Est GFR (Non-Af Amer) Glucose Calcium Magnesium 2.2 02/20/18 08:50 Tracheal Aspirate Gram Stain - Final 02/20/18 08:50 Tracheal Aspirate Sputum Culture - Final 02/13/18 02/14/18 02/14/18 17:31 21:00 21:00 Creatine Kinase 286 H CK-MB (CK-2) 13.80 H Troponin I < 0.012 < 0.012 02/15/18 02/15/18 04:55 04:55 Creatine Kinase 162 H CK-MB (CK-2) 8.94 H Troponin I < 0.012 Impressions: KUB X-Ray 02/17/18 00:00 IMPRESSION: VERY LITTLE BOWEL GAS PRESENT. LIFE LINES DESCRIBED. NO RADIOGRAPHIC EVIDENCE FOR ACUTE ABDOMINAL DISEASE. Chest/Abdomen CTA 02/18/18 00:00 IMPRESSION: NORMAL CTA OF THE CHEST. NO PULMONARY EMBOLI. Abdomen/Pelvis CT 02/18/18 07:24 IMPRESSION: NO SIGNIFICANT OR ACUTE FINDING IN THE ABDOMEN OR PELVIS ON CT SCAN WITH IV CONTRAST. Chest X-Ray 02/20/18 05:00 IMPRESSION: No significant change. Assessment & Plan - Diagnosis (1) COPD with respiratory failure, acute Is this a current diagnosis for this admission?: Yes (2) Acute exacerbation of COPD with asthma Is this a current diagnosis for this admission?: Yes (3) Cigarette smoker one half pack a day or less Is this a current diagnosis for this admission?: Yes (4) Essential hypertension Is this a current diagnosis for this admission?: Yes (5) HLD (hyperlipidemia) Qualifiers: Hyperlipidemia type: unspecified Qualified Code(s): E78.5 - Hyperlipidemia , unspecified Is this a current diagnosis for this admission?: Yes (6) CVA, old, hemiparesis Is this a current diagnosis for this admission?: Yes (7) Seasonal allergic rhinitis Qualifiers: Allergic rhinitis trigger: unspecified Qualified Code(s): J30.2 - Other seasonal allergic rhinitis Is this a current diagnosis for this admission?: Yes (8) GERD (gastroesophageal reflux disease) Qualifiers: Esophagitis presence: without esophagitis Qualified Code(s): K21.9 - Gastro -esophageal reflux disease without esophagitis Is this a current diagnosis for this admission?: Yes (9) Depression Qualifiers: Depression Type: unspecified Qualified Code(s): F32.9 - Major depressive disorder, single episode, unspecified Is this a current diagnosis for this admission?: Yes (10) Status post bilateral mastectomy Is this a current diagnosis for this admission?: Yes (11) Yeast cystitis Is this a current diagnosis for this admission?: Yes (12) Hypokalemia due to loss of potassium Is this a current diagnosis for this admission?: Yes - Time Time Spent with patient: 25-34 minutes Medications reviewed and adjusted accordingly: Yes Anticipated discharge: Home with Homehealth Within: Other - Inpatient Certification Based on my medical assessment, after consideration of the patient's comorbidities, presenting symptoms, or acuity I expect that the services needed warrant INPATIENT care.: Yes I certify that my determination is in accordance with my understanding of Medicare's requirements for reasonable and necessary INPATIENT services [42 CFR 412.3e].: Yes Medical Necessity: Need Close Monitoring Due to Risk of Patient Decompensation, Need For IV Fluids, Need For Continuous Telemetry Monitoring, Need for Nebulizer Therapy and Monitoring of Response, Need for IV Antibiotics, Risk of Complication if Not Cared For in Hospital Post Hospital Care: D/C Catering Staff Member Documentation - Plan Summary Plan Summary: Continue ventilatory support with weaning attempts later today. I discussed case with Dr Figueroa, dinkey brakeman. Electrolyte replacement in progress. Continue all other current medication management.
--- NOTE | 2018-02-21 18:53 | PDOC PROGRESS REPORT ---
Subjective Progress Note for:: 02/21/18 Subjective:: Patient about the same and has made some progress. Patient is generally more alert. Patient remains intubated, sedated, patient however looks comfortable and in acute distress. Medications reviewed. Reason For Visit: WHEEZING,CHRONIC OBSTRUCTIVE ASTHMA WITH EXACERBAT Physical Exam Vital Signs: Temp Pulse Resp BP Pulse Ox 100.0 F 100 15 158/86 H 93 02/21/18 18:00 02/21/18 17:36 02/21/18 18:00 02/21/18 17:49 02/21/18 18:00 Intake & Output 02/20/18 02/21/18 02/22/18 06:59 06:59 06:59 Intake Total 1540 2621 329 Output Total 2950 2715 2850 Balance -3014 -94 -9256 Weight 65.2 kg 66.3 kg Exam: GENERAL: well-nourished and in no acute distress. Patient is intubated and but more alert today and not to verbal question. HEAD: Atraumatic, normocephalic. EYES: Pupils equal round and reactive to light, extraocular movements could not be checked, sclera anicteric, conjunctiva are normal. ENT: TMs normal, nares patent, oropharynx clear without exudates. Moist mucous membranes. No oral ulcerations or bleeding gums noted NECK: supple without lymphadenopathy or JVD. Trachea is central. No cervical or axillary lymphadenopathy noted. Carotids are 2+ LUNGS: Breath sounds mostly clear to auscultation patient is noted to have bibasal crackles at the extreme bases CHEST: Palpation of the chest wall shows no significant chest wall tenderness or abnormalities. Bilateral mastectomy noted. HEART: Ethel SYNTHETIC FILAMENT SPINNER, No PSH, 2/6 ORIANA aortic area, 1/6 randle systolic murmur mitral area , no rubs or gallops. ABDOMEN: Soft, no significant tenderness appreciated, normoactive bowel sounds. No guarding, no rebound. No rigidity noted . No masses appreciated. EXTREMITIES: Pedal pulses are 1-2+, no calf tenderness noted, 1+ pedal edema noted. No clubbing or cyanosis. NEUROLOGICAL: The patient cannot participate in the neurological exam but no facial asymmetry noted. Extremities slightly hypotonic PSYCH: This cannot be evaluated. Patient cannot participate. SKIN: No significant ecchymosis, rash, or signs of pruritus noted. MUSCULOSKELETAL EXAM: No significant joint swelling noted. Patient cannot participate in musculoskeletal exam Results Laboratory Results: 02/20/18 05:03 02/21/18 17:25 02/21/18 02/21/18 02/21/18 05:30 05:30 09:25 Carbonic Acid 1.25 HCO3/H2CO3 Ratio 24:1 ABG pH 7.49 H ABG pCO2 41.5 ABG pO2 57.4 L ABG HCO3 30.7 H ABG O2 Saturation 91.8 L ABG Base Excess 6.7 FiO2 30% Sodium 140.8 Potassium 3.5 L Chloride 101 Carbon Dioxide 33 H Anion Gap 7 BUN 25 H Creatinine 0.55 Est GFR ( Amer) > 60 Est GFR (Non-Af Amer) > 60 Glucose 116 H Calcium 7.7 L Magnesium 2.3 02/21/18 17:25 Carbonic Acid HCO3/H2CO3 Ratio ABG pH ABG pCO2 ABG pO2 ABG HCO3 ABG O2 Saturation ABG Base Excess FiO2 Sodium Potassium 3.3 L Chloride Carbon Dioxide Anion Gap BUN Creatinine Est GFR ( Amer) Est GFR (Non-Af Amer) Glucose Calcium Magnesium 2.2 02/20/18 08:50 Tracheal Aspirate Gram Stain - Final 02/20/18 08:50 Tracheal Aspirate Sputum Culture - Final 02/13/18 02/14/18 02/14/18 17:31 21:00 21:00 Creatine Kinase 286 H CK-MB (CK-2) 13.80 H Troponin I < 0.012 < 0.012 02/15/18 02/15/18 04:55 04:55 Creatine Kinase 162 H CK-MB (CK-2) 8.94 H Troponin I < 0.012 Impressions: KUB X-Ray 02/17/18 00:00 IMPRESSION: VERY LITTLE BOWEL GAS PRESENT. LIFE LINES DESCRIBED. NO RADIOGRAPHIC EVIDENCE FOR ACUTE ABDOMINAL DISEASE. Chest/Abdomen CTA 02/18/18 00:00 IMPRESSION: NORMAL CTA OF THE CHEST. NO PULMONARY EMBOLI. Abdomen/Pelvis CT 02/18/18 07:24 IMPRESSION: NO SIGNIFICANT OR ACUTE FINDING IN THE ABDOMEN OR PELVIS ON CT SCAN WITH IV CONTRAST. Chest X-Ray 02/20/18 05:00 IMPRESSION: No significant change. Assessment & Plan - Diagnosis (1) Wide-complex tachycardia Is this a current diagnosis for this admission?: Yes (2) Tachycardia Is this a current diagnosis for this admission?: Yes (3) Acute exacerbation of COPD with asthma Is this a current diagnosis for this admission?: Yes (4) COPD with respiratory failure, acute Is this a current diagnosis for this admission?: Yes (5) Hypokalemia due to loss of potassium Is this a current diagnosis for this admission?: Yes (6) Essential hypertension Is this a current diagnosis for this admission?: Yes - Notes Notes: No further wide-complex tachycardia, ventricular tachycardia noted. Continue current management plans. Will follow for any cardiac dysrhythmia. Possible transient A. fib with aberrancy. Wide-complex tachycardia: Yesterday patient was noted to have wide-complex tachycardia. This was nonsustained. Potassium is noted to be low. Recommend replacing potassium and magnesium. Patient LVEF was noted to be normal therefore low risk of going into any sustained cardiac dysrhythmia. Once more stable, and ischemia evaluation could be performed. Tachycardia: Possibly related to underlying metabolic reasons. Patient could be getting too much beta2 stimulation. May consider switching to Xopenex unless it has already been done. Acute exacerbation of COPD with asthma: Patient being well managed by physician primary care sports medicine and other specialist involved. Hypokalemia: Recommend replacement. Try to keep potassium above 3.8 mEq/L. Hypertension: Blood pressure seems under reasonable control. CVA : Currently stable. We will continue to follow patient. - Time Time with patient: Greater than 35 minutes - CODE STATUS was discussed, patient remains full code. Surrogate decision-maker unchanged. Multiple medical problems were addressed. More than 50% of the time spent coordinating care, discussing management plans with involved caregivers. Management plans discussed with involved personnels. Medical decision making was of moderate to high complexity, patient's has multiple comorbidities. 2D echo obtained previously was reviewed. Medications reviewed and adjusted accordingly: Yes
[2018-02-21] MEDS ORDERED: POTASSIUM CHLORIDE 20 MEQ/15 ML UDCUP PO ONE ×2 (19:30→23:30)
[2018-02-21 20:59] LABS: HEMATOCRIT 39.4 % (36.0-47.0); MEAN CORPUSCULAR HEMOGLOBIN 31.7 pg (27.0-33.4); MEAN CORPUSCULAR VOLUME 96 fl (80-97); PLATELET COUNT 244 10^3/uL (150-450); WHITE BLOOD COUNT 15.7 10^3/uL (4.0-10.5)
[2018-02-21 21:12] LABS: ABSOLUTE LYMPHOCYTES# (MANUAL) 0.6 10^3/uL (0.5-4.7); ABSOLUTE MONOCYTES # (MANUAL) 1.1 10^3/uL (0.1-1.4); BASOPHILS % (MANUAL) 0 % (0-2); EOSINOPHILS % (MANUAL) 0 % (0-6); LYMPHOCYTES % (MANUAL) 4 % (13-45); MONOCYTES % (MANUAL) 7 % (3-13); SEGMENTED NEUTROPHILS % (MAN) 89 % (42-78); TOTAL CELLS COUNTED 100
[2018-02-21 21:13] LABS: PLATELET COMMENT ADEQUATE; TOXIC GRANULATION SLIGHT
[2018-02-21 21:15] LABS: ANION GAP 6 (5-19); BLOOD UREA NITROGEN 19 mg/dL (7-20); CALCIUM 8.7 mg/dL (8.4-10.2); CARBON DIOXIDE 34 mmol/L (22-30); CHLORIDE 103 mmol/L (98-107); GLUCOSE 125 mg/dL (75-110); PHOSPHORUS 2.6 mg/dL (2.5-4.5); POTASSIUM 4.1 mmol/L (3.6-5.0); SODIUM 143.1 mmol/L (137-145)
[2018-02-21] MEDS: TIOTROPIUM BROMIDE DPI 5 CAP/KIT (18 MCG/CAP) IH SCH (21:16)
[2018-02-21] MEDS: FLUTICASONE/SALMETEROL DISKUS 500-50 MCG/DOSE IH SCH (21:17)
[2018-02-21] MEDS: LEVOFLOXACIN 750 MG/D5W RTU 750 MG/150 ML RTUPB IV SCH (21:17)
[2018-02-21 21:27] LABS: CREATINE KINASE MB 1.15 ng/mL (<4.55); TROPONIN I 0.029 ng/mL
--- NOTE | 2018-02-21 22:26 | PROGRESS NOTE E ---
Progress Note NAME: ARIELLA JUAREZ : 1965 AGE: 52Y DATE: 02/21/2018 ROOM: 606 SUBJECTIVE: The patient is a 52-year-old -[place] female who came in with acute respiratory failure requiring invasive mechanical ventilation. The patient tolerated a spontaneous breathing trial this morning, was off sedation, did well, extubated. Doing well for the last few hours since extubation. There is no increased endotracheal tube secretions. Feels nauseated this evening. No vomiting, no diarrhea. Breathing comfortably. OBJECTIVE: GENERAL: The patient is awake, alert, coherent, oriented. VITAL SIGNS: Slightly febrile with a temperature of 100.2 degrees Fahrenheit with a T-max of 100.2 degrees Fahrenheit. Heart rate of 106, blood pressure is 158/86, respiratory rate of 15, saturation is 93% on 2 liters nasal cannula. EYES: No jaundice or pallor. EARS, NOSE, AND THROAT: No ear drainage noted. No nasal discharge. HEAD AND NECK: No scalp swelling or tenderness. Neck is supple. CHEST AND LUNGS: No wheezing, no rhonchi, no coarse crackles. CARDIOVASCULAR: S1, S2 distinct. Normal rate, regular rhythm. ABDOMEN: Flabby, positive bowel sounds, soft, nondistended, nontender. EXTREMITIES: No joint swelling, no cellulitis. LABORATORY DATA: Chemistry done today showed potassium 3.3. Blood gas done this morning showed a pH of 7.49, pCO2 of 41.5, pO2 is 57, bicarb is 30.7, oxygen saturation is 91.8. ASSESSMENT: 1. ACUTE RESPIRATORY FAILURE REQUIRING INVASIVE MECHANICAL VENTILATION. Currently improving and extubated. Doing well on nasal cannula. 2. COPD EXACERBATION. Currently stable and not in bronchospasm. 3. PNEUMONIA, LEFT LOWER LOBE. 4. NAUSEA. Probably GI etiology. PLAN/RECOMMENDATION: 1. The patient extubated today. Discontinue the propofol drip, discontinue the ET tube feeding. 2. The patient is getting Zofran 4 mg IV every 6 hours as needed for nausea. 3. We will start patient on Advair 500/50 DiskHaler 1 puff b.i.d. and start the patient on Spiriva inhaler 1 capsule once a day, first dose tonight. 4. Continue nebulizer treatment. 5. Continue IV antibiotics. 6. Continue GI prophylaxis. DICTATING PHYSICIAN: ERICA REAL MD,ALO,MPH [id number] [id number] PHY#: [id number] 2015 ID: [id number] JOB#: [id number] ACCT: [id number] cc: > MTDD
[2018-02-22] MEDS: LEVALBUTEROL HCL NEB 1.25 MG/3 ML AMPUL NEB SCH ×6 (00:28→20:29)
[2018-02-22] MEDS: IPRATROPIUM BROMIDE 0.02% NEB 0.5 MG/2.5 ML AMPUL NEB SCH ×6 (00:28→20:29)
[2018-02-22] MEDS: ONDANSETRON HCL INJ/PF 4 MG/2 ML SDV IV PRN (00:32)
[2018-02-22] MEDS: DILTIAZEM HCL 60 MG TABLET NG SCH ×4 (00:38→18:43)
[2018-02-22 04:59] LABS: ARTERIAL BLOOD BASE EXCESS 9.7 mmol/L; ARTERIAL BLOOD HCO3 33.7 mmol/L (20-24); ARTERIAL BLOOD PCO2 43.2 mmHg (35-45); ARTERIAL BLOOD PH 7.51 (7.35-7.45); ARTERIAL BLOOD PO2 63.5 mmHg (80-100)
[2018-02-22 05:03] LABS: HEMATOCRIT 35.9 % (36.0-47.0); HEMOGLOBIN 11.7 g/dL (12.0-15.5); MEAN CORPUSCULAR HEMOGLOBIN 31.9 pg (27.0-33.4); MEAN CORPUSCULAR HGB CONC 32.6 g/dL (32.0-36.0); MEAN CORPUSCULAR VOLUME 98 fl (80-97); PLATELET COUNT 208 10^3/uL (150-450); RED BLOOD COUNT 3.66 10^6/uL (3.72-5.28); RED CELL DISTRIBUTION WIDTH 12.6 % (11.5-14.0); WHITE BLOOD COUNT 15.8 10^3/uL (4.0-10.5)
[2018-02-22 05:11] LABS: ARTERIAL BLOOD FIO2 4
[2018-02-22 05:22] LABS: ALANINE AMINOTRANSFERASE 184 U/L (9-52); ALBUMIN 2.4 g/dL (3.5-5.0); ALKALINE PHOSPHATASE 28 U/L (38-126); ASPARTATE AMINO TRANSFERASE 76 U/L (14-36); BILIRUBIN,DIRECT 0.4 mg/dL (0.0-0.4); BILIRUBIN,TOTAL 0.6 mg/dL (0.2-1.3); BLOOD UREA NITROGEN 23 mg/dL (7-20); GLUCOSE 112 mg/dL (75-110); TOTAL PROTEIN 4.6 g/dL (6.3-8.2)
[2018-02-22 05:38] LABS: CARBON DIOXIDE 33 mmol/L (22-30); CHLORIDE 104 mmol/L (98-107); SODIUM 141.5 mmol/L (137-145)
[2018-02-22 05:42] LABS: ABSOLUTE LYMPHOCYTES# (MANUAL) 0.6 10^3/uL (0.5-4.7); ABSOLUTE MONOCYTES # (MANUAL) 0.2 10^3/uL (0.1-1.4); BASOPHILS % (MANUAL) 0 % (0-2); EOSINOPHILS % (MANUAL) 0 % (0-6); LYMPHOCYTES % (MANUAL) 4 % (13-45); MONOCYTES % (MANUAL) 1 % (3-13); SEGMENTED NEUTROPHILS % (MAN) 95 % (42-78); TOTAL CELLS COUNTED 100
[2018-02-22 05:43] LABS: TOXIC GRANULATION 2+
[2018-02-22 05:44] LABS: PLATELET COMMENT ADEQUATE; POLYCHROMASIA SLIGHT; TARGET CELLS 1+
[2018-02-22 05:46] LABS: ANION GAP 5 (5-19)
[2018-02-22] MEDS: LANSOPRAZOLE 30 MG TAB.RAP.DR NG SCH (06:08)
[2018-02-22] MEDS: METHYLPREDNISOLONE INJ 40 MG/1 ML SDV IV SCH ×3 (06:08→21:49)
[2018-02-22] MEDS: LISINOPRIL 10 MG TABLET PO SCH (10:17)
[2018-02-22] MEDS: TIOTROPIUM BROMIDE DPI 5 CAP/KIT (18 MCG/CAP) IH SCH (10:17)
[2018-02-22] MEDS: FLUTICASONE/SALMETEROL DISKUS 500-50 MCG/DOSE IH SCH ×2 (10:17→21:48)
[2018-02-22] MEDS: NORMAL SALINE 1000 ML 1,000 ML IV PRN (10:17)
[2018-02-22] MEDS: ANASTROZOLE 1 MG TABLET NG SCH (10:17)
[2018-02-22] MEDS: FUROSEMIDE 20 MG TABLET NG SCH (10:17)
[2018-02-22] MEDS: NICOTINE 14 MG/24 HR PATCH.TD24 TD SCH (10:18)
[2018-02-22] MEDS: ENOXAPARIN SODIUM INJ 40 MG/0.4 ML DISP.SYRIN SUBCUT SCH (10:18)
--- NOTE | 2018-02-22 21:12 | PDOC PROGRESS REPORT ---
Subjective Progress Note for:: 02/22/18 Subjective:: Patient remain tachycardia most of today. She participated in bedside physical therapy session. She denied any chest pain. Remain on supplemental oxygen via nasal cannula. No nausea or vomiting. Tolerating oral feeding. Expressed some degree of nonspecific lower abdominal pain. No bowel movement so far for several days. Reason For Visit: WHEEZING,CHRONIC OBSTRUCTIVE ASTHMA WITH EXACERBAT Physical Exam Vital Signs: Temp Pulse Resp BP Pulse Ox 99.3 F 120 H 14 133/81 H 94 02/22/18 08:00 02/22/18 08:00 02/22/18 08:00 02/22/18 08:00 02/22/18 08:00 Intake & Output 02/21/18 02/22/18 02/23/18 06:59 06:59 06:59 Intake Total 2771 1329 480 Output Total 2715 3810 125 Balance 56 -2481 355 Weight 66.3 kg 65.8 kg General appearance: PRESENT: no acute distress, well-developed, well-nourished Head exam: PRESENT: atraumatic, normocephalic Eye exam: PRESENT: conjunctiva pink. ABSENT: conjunctival injection Ear exam: PRESENT: normal external ear exam Mouth exam: PRESENT: moist Teeth exam: PRESENT: poor dentation Respiratory exam: PRESENT: decreased breath sounds - at lung bases, rhonchi - minimal end expiratory phase Cardiovascular exam: PRESENT: RRR, tachycardia. ABSENT: diastolic murmur, rubs , systolic murmur Vascular exam: ABSENT: pallor GI/Abdominal exam: PRESENT: normal bowel sounds, soft. ABSENT: distended, guarding, mass, organolmegaly, rebound, tenderness Extremities exam: ABSENT: pedal edema Musculoskeletal exam: PRESENT: normal inspection Neurological exam: PRESENT: alert, awake, oriented to person, oriented to place , oriented to time, oriented to situation, CN II-XII grossly intact. ABSENT: motor sensory deficit Psychiatric exam: PRESENT: appropriate affect, normal mood. ABSENT: homicidal ideation, suicidal ideation Skin exam: PRESENT: dry, intact, warm. ABSENT: cyanosis, rash Results Laboratory Results: 02/22/18 04:30 02/22/18 04:30 02/21/18 02/21/18 02/21/18 09:25 17:25 20:32 WBC 15.7 H RBC 4.10 Hgb 13.0 Hct 39.4 MCV 96 MCH 31.7 MCHC 33.0 RDW 13.0 Plt Count 244 Seg Neutrophils % Not Reportable Lymphocytes % Not Reportable Monocytes % Not Reportable Eosinophils % Not Reportable Basophils % Not Reportable Absolute Neutrophils Not Reportable Absolute Lymphocytes Not Reportable Absolute Monocytes Not Reportable Absolute Eosinophils Not Reportable Absolute Basophils Not Reportable Carbonic Acid 1.25 HCO3/H2CO3 Ratio 24:1 ABG pH 7.49 H ABG pCO2 41.5 ABG pO2 57.4 L ABG HCO3 30.7 H ABG O2 Saturation 91.8 L ABG Base Excess 6.7 FiO2 30% Sodium Potassium 3.3 L Chloride Carbon Dioxide Anion Gap BUN Creatinine Est GFR ( Amer) Est GFR (Non-Af Amer) Glucose Calcium Phosphorus Magnesium 2.2 Total Bilirubin AST ALT Alkaline Phosphatase Total Protein Albumin 02/21/18 02/21/18 02/22/18 20:32 20:32 04:30 WBC RBC Hgb Hct MCV MCH MCHC RDW Plt Count Seg Neutrophils % Lymphocytes % Monocytes % Eosinophils % Basophils % Absolute Neutrophils Absolute Lymphocytes Absolute Monocytes Absolute Eosinophils Absolute Basophils Carbonic Acid 1.30 HCO3/H2CO3 Ratio 25:1 ABG pH 7.51 H ABG pCO2 43.2 ABG pO2 63.5 L ABG HCO3 33.7 H ABG O2 Saturation 94.0 ABG Base Excess 9.7 FiO2 4 Sodium 143.1 Potassium 4.1 Chloride 103 Carbon Dioxide 34 H Anion Gap 6 BUN 19 Creatinine 0.64 Est GFR ( Amer) > 60 Est GFR (Non-Af Amer) > 60 Glucose 125 H Calcium 8.7 Phosphorus 2.6 Magnesium 2.4 H Total Bilirubin AST ALT Alkaline Phosphatase Total Protein Albumin 02/22/18 02/22/18 04:30 04:30 WBC 15.8 H RBC 3.66 L Hgb 11.7 L Hct 35.9 L MCV 98 H MCH 31.9 MCHC 32.6 RDW 12.6 Plt Count 208 Seg Neutrophils % Not Reportable Lymphocytes % Not Reportable Monocytes % Not Reportable Eosinophils % Not Reportable Basophils % Not Reportable Absolute Neutrophils Not Reportable Absolute Lymphocytes Not Reportable Absolute Monocytes Not Reportable Absolute Eosinophils Not Reportable Absolute Basophils Not Reportable Carbonic Acid HCO3/H2CO3 Ratio ABG pH ABG pCO2 ABG pO2 ABG HCO3 ABG O2 Saturation ABG Base Excess FiO2 Sodium 141.5 Potassium 4.0 Chloride 104 Carbon Dioxide 33 H Anion Gap 5 BUN 23 H Creatinine 0.56 Est GFR ( Amer) > 60 Est GFR (Non-Af Amer) > 60 Glucose 112 H Calcium 8.0 L Phosphorus Magnesium 2.4 H Total Bilirubin 0.6 AST 76 H ALT 184 H Alkaline Phosphatase 28 L Total Protein 4.6 L Albumin 2.4 L 02/20/18 08:50 Tracheal Aspirate Gram Stain - Final 02/20/18 08:50 Tracheal Aspirate Sputum Culture - Final 02/13/18 02/14/18 02/14/18 17:31 21:00 21:00 Creatine Kinase 286 H CK-MB (CK-2) 13.80 H Troponin I < 0.012 < 0.012 02/15/18 02/15/18 02/21/18 04:55 04:55 20:32 Creatine Kinase 162 H 248 H CK-MB (CK-2) 8.94 H Troponin I < 0.012 02/21/18 20:32 Creatine Kinase CK-MB (CK-2) 1.15 Troponin I 0.029 Impressions: KUB X-Ray 02/17/18 00:00 IMPRESSION: VERY LITTLE BOWEL GAS PRESENT. LIFE LINES DESCRIBED. NO RADIOGRAPHIC EVIDENCE FOR ACUTE ABDOMINAL DISEASE. Chest/Abdomen CTA 02/18/18 00:00 IMPRESSION: NORMAL CTA OF THE CHEST. NO PULMONARY EMBOLI. Abdomen/Pelvis CT 02/18/18 07:24 IMPRESSION: NO SIGNIFICANT OR ACUTE FINDING IN THE ABDOMEN OR PELVIS ON CT SCAN WITH IV CONTRAST. Chest X-Ray 02/20/18 05:00 IMPRESSION: No significant change. Assessment & Plan - Diagnosis (1) COPD with respiratory failure, acute Is this a current diagnosis for this admission?: Yes (2) Acute exacerbation of COPD with asthma Is this a current diagnosis for this admission?: Yes (3) Cigarette smoker one half pack a day or less Is this a current diagnosis for this admission?: Yes (4) Essential hypertension Is this a current diagnosis for this admission?: Yes (5) HLD (hyperlipidemia) Qualifiers: Hyperlipidemia type: unspecified Qualified Code(s): E78.5 - Hyperlipidemia , unspecified Is this a current diagnosis for this admission?: Yes (6) CVA, old, hemiparesis Is this a current diagnosis for this admission?: Yes (7) Seasonal allergic rhinitis Qualifiers: Allergic rhinitis trigger: unspecified Qualified Code(s): J30.2 - Other seasonal allergic rhinitis Is this a current diagnosis for this admission?: Yes (8) GERD (gastroesophageal reflux disease) Qualifiers: Esophagitis presence: without esophagitis Qualified Code(s): K21.9 - Gastro -esophageal reflux disease without esophagitis Is this a current diagnosis for this admission?: Yes (9) Depression Qualifiers: Depression Type: unspecified Qualified Code(s): F32.9 - Major depressive disorder, single episode, unspecified Is this a current diagnosis for this admission?: Yes (10) Status post bilateral mastectomy Is this a current diagnosis for this admission?: Yes (11) Yeast cystitis Is this a current diagnosis for this admission?: Yes (12) Hypokalemia due to loss of potassium Is this a current diagnosis for this admission?: Yes (13) Constipation by delayed colonic transit Is this a current diagnosis for this admission?: Yes Plan: Obtain KUB abdominal X ray for further evaluation. (14) Tachyarrhythmia Is this a current diagnosis for this admission?: Yes Plan: Increase Cardizem to 90 mg po q6 hours. Maintain on all other current medication management. - Time Time Spent with patient: 25-34 minutes Medications reviewed and adjusted accordingly: Yes Anticipated discharge: Home with Homehealth Within: Other - Inpatient Certification Based on my medical assessment, after consideration of the patient's comorbidities, presenting symptoms, or acuity I expect that the services needed warrant INPATIENT care.: Yes I certify that my determination is in accordance with my understanding of Medicare's requirements for reasonable and necessary INPATIENT services [42 CFR 412.3e].: Yes Medical Necessity: Need Close Monitoring Due to Risk of Patient Decompensation, Need For IV Fluids, Need For Continuous Telemetry Monitoring, Need for Nebulizer Therapy and Monitoring of Response, Need for IV Antibiotics, Risk of Complication if Not Cared For in Hospital Post Hospital Care: D/C Hand Upper And Bottom Lacer 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 Follow up on pending labs.
[2018-02-22] MEDS: LEVOFLOXACIN 750 MG/D5W RTU 750 MG/150 ML RTUPB IV SCH (21:49)
--- NOTE | 2018-02-22 22:41 | PROGRESS NOTE E ---
Progress Note NAME: ARIELLA JUAREZ : 1965 AGE: 52Y DATE: 02/22/2018 ROOM: 606 SUBJECTIVE: The patient is a 52-year-old -[place] female who came in with acute respiratory failure, requiring invasive mechanical ventilation, with pneumonia and severe COPD/asthma exacerbation. The patient was extubated yesterday and appeared to be doing well. The patient currently feels well. Denies any fever, chills, increasing cough, or hemoptysis. The patient denies any chest pain. Complains of some suprapubic pain. The patient has a Wesley catheter. OBJECTIVE: GENERAL: The patient is awake, alert, afebrile. Oriented x3. Not in apparent respiratory distress. VITAL SIGNS: Temperature 100.2, T-max 100.8. Heart rate 111 beats per minute, blood pressure 147/67, respirations 17, saturation is 92% on 2 liters nasal cannula. HEENT: Eyes: No conjunctival pallor. Ears/nose/throat: No ear drainage, sore throats or nasal discharge. HEAD/NECK: No scalp tenderness. Neck supple. CHEST/LUNGS: No wheezing, no rhonchi. Coarse crackles. CARDIOVASCULAR: Regular rate and rhythm. ABDOMEN: Flabby. Positive bowel sounds. Soft, nondistended. EXTREMITIES: No joint swelling or cellulitis. LABORATORY: CBC done today showed white cell count of 15.8, hemoglobin 11.7, hematocrit 35.9, platelet count 108. ABG done today showed pH of 7.51, pCO2 of 43.2, pO2 of 63.5, saturation 94%. Chemistry done today shows sodium of 141, potassium 4, chloride 104, CO2 of 33, BUN 33, creatinine 0.56, glucose 112, calcium 8, phosphorus 2.4, SGPT 184, SGOT 76, and alkaline phosphatase 28. Total protein is 4.6, albumin 2.4. ASSESSMENT: 1. ACUTE CHRONIC OBSTRUCTIVE PULMONARY DISEASE/BRONCHIAL ASTHMA. Currently stable and not in acute exacerbation. 2. ACUTE RESPIRATORY FAILURE, resolved. 3. PNEUMONIA. Appears to be improving. PLAN: Continue Advair 500/50 diskhaler 1 puff BID daily. Continue Spiriva inhaler 1 capsule inhaled once daily. Continue nebulizer treatment as needed. Albuterol inhaler as needed. Continue antibiotics. Will sign off tonight. If you have any questions, please feel free to call me. DICTATING PHYSICIAN: ERICA REAL MD,ALO,MPH [id number] 6 PHY#: [id number] ID: [id number] JOB#: [id number] ACCT: [id number] cc: > MTDD
[2018-02-22] MEDS: DILTIAZEM HCL 90 MG TABLET PO SCH (23:40)
[2018-02-22] MEDS: ALPRAZOLAM 0.25 MG TABLET NG PRN (23:40)
[2018-02-23] MEDS: LEVALBUTEROL HCL NEB 1.25 MG/3 ML AMPUL NEB SCH ×7 (00:31→23:48)
[2018-02-23] MEDS: IPRATROPIUM BROMIDE 0.02% NEB 0.5 MG/2.5 ML AMPUL NEB SCH ×7 (00:31→23:48)
[2018-02-23] MEDS: DILTIAZEM HCL 90 MG TABLET PO SCH ×3 (05:39→19:04)
[2018-02-23] MEDS: LANSOPRAZOLE 30 MG TAB.RAP.DR NG SCH (05:39)
[2018-02-23] MEDS: METHYLPREDNISOLONE INJ 40 MG/1 ML SDV IV SCH ×3 (05:40→21:48)
[2018-02-23] MEDS: NORMAL SALINE 1000 ML 1,000 ML IV PRN (05:41)
[2018-02-23 06:09] LABS: HEMATOCRIT 35.6 % (36.0-47.0); HEMOGLOBIN 11.7 g/dL (12.0-15.5); MEAN CORPUSCULAR HEMOGLOBIN 32.1 pg (27.0-33.4); MEAN CORPUSCULAR HGB CONC 32.9 g/dL (32.0-36.0); MEAN CORPUSCULAR VOLUME 98 fl (80-97); PLATELET COUNT 189 10^3/uL (150-450); RED BLOOD COUNT 3.65 10^6/uL (3.72-5.28); RED CELL DISTRIBUTION WIDTH 12.6 % (11.5-14.0); WHITE BLOOD COUNT 19.1 10^3/uL (4.0-10.5)
[2018-02-23 06:26] LABS: ANION GAP 6 (5-19); BLOOD UREA NITROGEN 21 mg/dL (7-20); CARBON DIOXIDE 32 mmol/L (22-30); CHLORIDE 104 mmol/L (98-107); GLUCOSE 112 mg/dL (75-110); POTASSIUM 3.8 mmol/L (3.6-5.0); SODIUM 141.8 mmol/L (137-145)
[2018-02-23 06:34] LABS: ABSOLUTE LYMPHOCYTES# (MANUAL) 0.8 10^3/uL (0.5-4.7); ABSOLUTE MONOCYTES # (MANUAL) 0.6 10^3/uL (0.1-1.4); ABSOLUTE NEUTROPHILS# (MANUAL) 17.8 10^3/uL (1.7-8.2); BASOPHILS % (MANUAL) 0 % (0-2); EOSINOPHILS % (MANUAL) 0 % (0-6); LYMPHOCYTES % (MANUAL) 4 % (13-45); MONOCYTES % (MANUAL) 3 % (3-13); NUCLEATED RED BLOOD CELLS 1 /100 WBC (0); SEGMENTED NEUTROPHILS % (MAN) 93 % (42-78); TOTAL CELLS COUNTED 100
[2018-02-23 06:35] LABS: PLATELET COMMENT ADEQUATE; RBC MORPHOLOGY COMMENT NORMO-CYTIC/CHROMIC
[2018-02-23] MEDS: LISINOPRIL 10 MG TABLET PO SCH (12:03)
[2018-02-23] MEDS: TIOTROPIUM BROMIDE DPI 5 CAP/KIT (18 MCG/CAP) IH SCH (12:04)
[2018-02-23] MEDS: NICOTINE 14 MG/24 HR PATCH.TD24 TD SCH (12:04)
[2018-02-23] MEDS: ENOXAPARIN SODIUM INJ 40 MG/0.4 ML DISP.SYRIN SUBCUT SCH (12:06)
[2018-02-23] MEDS: FLUTICASONE/SALMETEROL DISKUS 500-50 MCG/DOSE IH SCH ×2 (12:06→21:49)
[2018-02-23] MEDS ORDERED: ACETAMINOPHEN 325 MG TABLET ONE (15:04)
[2018-02-23] MEDS: ALPRAZOLAM 0.25 MG TABLET PO PRN ×2 (15:18→23:37)
[2018-02-23 16:08] LABS: APPEARANCE,URINE SLIGHTLY-CLOUDY; BILIRUBIN,URINE NEGATIVE (NEGATIVE); COLOR,URINE YELLOW; GLUCOSE, URINE NEGATIVE (NEGATIVE); KETONES,URINE NEGATIVE (NEGATIVE); LEUKOCYTE ESTERASE,URINE SMALL (NEGATIVE); NITRITE,URINE NEGATIVE (NEGATIVE); PROTEIN,URINE 30 mg/dL (NEGATIVE); URINE SPECIFIC GRAVITY 1.023; UROBILINOGEN,URINE NEGATIVE mg/dL (<2.0)
--- NOTE | 2018-02-23 16:47 | PDOC PROGRESS REPORT ---
Subjective Progress Note for:: 02/23/18 Subjective:: There is documented fever with elevated temperature, cloudy urine and indwelling Wesley catheter. No chest pain. Remain on supplemental oxygen via nasal cannula. Tachycardia did persist with some improvement. No nausea, vomiting, or abdominal pain. Reported significant muscle cramps in her legs. Reason For Visit: WHEEZING,CHRONIC OBSTRUCTIVE ASTHMA WITH EXACERBAT Physical Exam Vital Signs: Temp Pulse Resp BP Pulse Ox 100.4 F 114 H 21 H 134/78 H 100 02/23/18 16:20 02/23/18 12:25 02/23/18 16:20 02/23/18 16:20 02/23/18 16:00 Intake & Output 02/22/18 02/23/18 02/24/18 06:59 06:59 06:59 Intake Total 1479 3590 400 Output Total 3810 3095 700 Balance -2331 495 -300 Weight 65.8 kg 66.7 kg Physical Exam: General appearance: PRESENT: no acute distress, well-developed, well-nourished Head exam: PRESENT: atraumatic, normocephalic Eye exam: PRESENT: conjunctiva pink. ABSENT: conjunctival injection Ear exam: PRESENT: normal external ear exam Mouth exam: PRESENT: moist Respiratory exam: PRESENT: decreased breath sounds - at lung bases, rhonchi - minimal end expiratory phase Cardiovascular exam: PRESENT: RRR, tachycardia. ABSENT: diastolic murmur, rubs , systolic murmur Vascular exam: ABSENT: pallor GI/Abdominal exam: PRESENT: normal bowel sounds, soft. ABSENT: distended, guarding, mass, organomegaly, rebound, tenderness Extremities exam: ABSENT: pedal edema Musculoskeletal exam: PRESENT: normal inspection Neurological exam: PRESENT: alert, awake, oriented to person, oriented to place , oriented to time, oriented to situation, CN II-XII grossly intact. ABSENT: motor sensory deficit Psychiatric exam: PRESENT: appropriate affect, normal mood. ABSENT: homicidal ideation, suicidal ideation Skin exam: PRESENT: dry, intact, warm. ABSENT: cyanosis, rash Results Laboratory Results: 02/23/18 05:40 02/23/18 05:40 02/23/18 02/23/18 02/23/18 05:40 05:40 15:30 WBC 19.1 H RBC 3.65 L Hgb 11.7 L Hct 35.6 L MCV 98 H MCH 32.1 MCHC 32.9 RDW 12.6 Plt Count 189 Seg Neutrophils % Not Reportable Lymphocytes % Not Reportable Monocytes % Not Reportable Eosinophils % Not Reportable Basophils % Not Reportable Absolute Neutrophils Not Reportable Absolute Lymphocytes Not Reportable Absolute Monocytes Not Reportable Absolute Eosinophils Not Reportable Absolute Basophils Not Reportable Sodium 141.8 Potassium 3.8 Chloride 104 Carbon Dioxide 32 H Anion Gap 6 BUN 21 H Creatinine 0.54 Est GFR ( Amer) > 60 Est GFR (Non-Af Amer) > 60 Glucose 112 H Calcium 8.0 L Magnesium 2.3 Urine Color YELLOW Urine Appearance SLIGHTLY-CLOUDY Urine pH 6.0 Ur Specific [place] 1.023 Urine Protein 30 H Urine Glucose (UA) NEGATIVE Urine Ketones NEGATIVE Urine Blood LARGE H Urine Nitrite NEGATIVE Ur Leukocyte Esterase SMALL H Urine WBC (Auto) >182 Urine RBC (Auto) 109 02/13/18 02/14/18 02/14/18 17:31 21:00 21:00 Creatine Kinase 286 H CK-MB (CK-2) 13.80 H Troponin I < 0.012 < 0.012 02/15/18 02/15/18 02/21/18 04:55 04:55 20:32 Creatine Kinase 162 H 248 H CK-MB (CK-2) 8.94 H Troponin I < 0.012 02/21/18 20:32 Creatine Kinase CK-MB (CK-2) 1.15 Troponin I 0.029 Impressions: KUB X-Ray 02/17/18 00:00 IMPRESSION: VERY LITTLE BOWEL GAS PRESENT. LIFE LINES DESCRIBED. NO RADIOGRAPHIC EVIDENCE FOR ACUTE ABDOMINAL DISEASE. Chest/Abdomen CTA 02/18/18 00:00 IMPRESSION: NORMAL CTA OF THE CHEST. NO PULMONARY EMBOLI. Abdomen/Pelvis CT 02/18/18 07:24 IMPRESSION: NO SIGNIFICANT OR ACUTE FINDING IN THE ABDOMEN OR PELVIS ON CT SCAN WITH IV CONTRAST. Chest X-Ray 02/20/18 05:00 IMPRESSION: No significant change. Assessment & Plan - Diagnosis (1) COPD with respiratory failure, acute Is this a current diagnosis for this admission?: Yes (2) Acute exacerbation of COPD with asthma Is this a current diagnosis for this admission?: Yes (3) Cigarette smoker one half pack a day or less Is this a current diagnosis for this admission?: Yes (4) Essential hypertension Is this a current diagnosis for this admission?: Yes (5) HLD (hyperlipidemia) Qualifiers: Hyperlipidemia type: unspecified Qualified Code(s): E78.5 - Hyperlipidemia , unspecified Is this a current diagnosis for this admission?: Yes (6) CVA, old, hemiparesis Is this a current diagnosis for this admission?: Yes (7) Seasonal allergic rhinitis Qualifiers: Allergic rhinitis trigger: unspecified Qualified Code(s): J30.2 - Other seasonal allergic rhinitis Is this a current diagnosis for this admission?: Yes (8) GERD (gastroesophageal reflux disease) Qualifiers: Esophagitis presence: without esophagitis Qualified Code(s): K21.9 - Gastro -esophageal reflux disease without esophagitis Is this a current diagnosis for this admission?: Yes (9) Depression Qualifiers: Depression Type: unspecified Qualified Code(s): F32.9 - Major depressive disorder, single episode, unspecified Is this a current diagnosis for this admission?: Yes (10) Status post bilateral mastectomy Is this a current diagnosis for this admission?: Yes (11) Yeast cystitis Is this a current diagnosis for this admission?: Yes (12) Hypokalemia due to loss of potassium Is this a current diagnosis for this admission?: Yes (13) Constipation by delayed colonic transit Is this a current diagnosis for this admission?: Yes (14) Tachyarrhythmia Is this a current diagnosis for this admission?: Yes - Time Time Spent with patient: 25-34 minutes Medications reviewed and adjusted accordingly: Yes Anticipated discharge: Home with Homehealth - Inpatient Certification Based on my medical assessment, after consideration of the patient's comorbidities, presenting symptoms, or acuity I expect that the services needed warrant INPATIENT care.: Yes I certify that my determination is in accordance with my understanding of Medicare's requirements for reasonable and necessary INPATIENT services [42 CFR 412.3e].: Yes Medical Necessity: Need Close Monitoring Due to Risk of Patient Decompensation, Need For IV Fluids, Need For Continuous Telemetry Monitoring, Need for Nebulizer Therapy and Monitoring of Response, Need for IV Antibiotics, Risk of Complication if Not Cared For in Hospital Post Hospital Care: 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 Continue IV Levofloxacin coverage. Obtain BMP and Mag level. Transfer to [facility]. Continue all other current medication management. D/C Albuterol neb treatment.
[2018-02-23] MEDS ORDERED: CEFTRIAXONE 1 GM/D5W RTU 1 GM/50 ML RTUPB IV SCH (17:00)
--- NOTE | 2018-02-23 17:23 | RADIOLOGY REPORT (SQ) ---
EXAM DESCRIPTION: KUB/ABDOMEN (SINGLE VIEW) COMPLETED DATE/TIME: 02/23/2018 5:00 pm REASON FOR STUDY: constipation COMPARISON: KUB 02/17/2018 CT abdomen and pelvis 02/18/2018 NUMBER OF VIEWS: One view. TECHNIQUE: Supine radiographic image of the abdomen acquired. LIMITATIONS: None. FINDINGS: BOWEL GAS PATTERN: Normal bowel gas pattern. No dilated loops.Large amount of stool in the ascending and hepatic flexure. Descending colon decompressed CALCIFICATIONS: No suspicious calcifications. SOFT TISSUES: No gross mass or suggestion of organomegaly. HARDWARE: Nasogastric tube seen on 02/17/2018 has been removed BONES: No acute fracture. No worrisome bone lesions. OTHER: No other significant finding. IMPRESSION: Large amount of stool in the ascending colon and hepatic flexure. TECHNICAL DOCUMENTATION: JOB ID: [id number] [employer]- All Rights Reserved Reading location - IP/workstation name: [email or web address]
[2018-02-23 17:31] LABS: ANION GAP 6 (5-19); BLOOD UREA NITROGEN 23 mg/dL (7-20); CALCIUM 8.5 mg/dL (8.4-10.2); CARBON DIOXIDE 32 mmol/L (22-30); CHLORIDE 103 mmol/L (98-107); GLUCOSE 103 mg/dL (75-110); POTASSIUM 3.8 mmol/L (3.6-5.0); SODIUM 141.1 mmol/L (137-145)
[2018-02-23] MEDS: LEVOFLOXACIN 750 MG/D5W RTU 750 MG/150 ML RTUPB IV SCH (21:48)
--- NOTE | 2018-02-23 22:35 | PDOC PROGRESS REPORT ---
Subjective Progress Note for:: 02/22/18 Subjective:: Patient seems to be doing better. Patient was extubated yesterday and is doing fine. Pt is denying any chest arm or neck discomfort. Patient denying any PND , orthopnea. Patient denied any sustained palpitations, dizziness, syncope, near syncope. Patient denying any fever chills. Patient denying any other significant discomfort. Patient is maintaining sinus rhythm. Review of systems: Rest review of systems negative. Medications: Medications have been reviewed. Medications reviewed. Reason For Visit: WHEEZING,CHRONIC OBSTRUCTIVE ASTHMA WITH EXACERBAT Physical Exam Vital Signs: Temp Pulse Resp BP Pulse Ox 100.8 F H 123 H 20 147/67 H 97 02/22/18 18:00 02/22/18 18:00 02/22/18 18:00 02/22/18 18:00 02/22/18 18:00 Intake & Output 02/21/18 02/22/18 02/23/18 06:59 06:59 06:59 Intake Total 2771 1329 2440 Output Total 2715 3810 1470 Balance 56 -2481 970 Weight 66.3 kg 65.8 kg Exam: GENERAL: well-nourished and in no acute distress. Alert and oriented x3 HEAD: Atraumatic, normocephalic. EYES: Pupils equal round and reactive to light, extraocular movements intact, sclera anicteric, conjunctiva are normal. ENT: TMs normal, nares patent, oropharynx clear without exudates. Moist mucous membranes. No oral ulcerations or bleeding gums noted NECK: supple without lymphadenopathy. Trachea is central. No cervical or axillary lymphadenopathy noted. Carotids are 2+, JVD WNL LUNGS: Respiration seems nonlabored, no significant accessory muscle action noted. Bilateral mild wheezes rales or rhonchi noted. No significant dullness noted on percussion. CHEST: Palpation of the chest wall shows no significant chest wall tenderness. Bilateral mastectomy noted. 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 ABDOMEN: Soft, no significant tenderness appreciated, normoactive bowel sounds. No guarding, no rebound. No rigidity noted . No masses appreciated. EXTREMITIES: Pedal pulses are 1-2+, no calf tenderness noted. No clubbing or cyanosis. 1+ pedal edema noted NEUROLOGICAL: Focused neurological exam showed no facial asymmetry. Bilateral lower extremity weakness suspected. PSYCH: Normal mood, normal affect. Judgment and insight within normal limits. SKIN: No significant ecchymosis, skin is noted to be warm. MUSCULOSKELETAL EXAM: No significant acute joint swelling noted. Results Laboratory Results: 02/22/18 04:30 02/22/18 04:30 02/21/18 02/21/18 02/21/18 20:32 20:32 20:32 WBC 15.7 H RBC 4.10 Hgb 13.0 Hct 39.4 MCV 96 MCH 31.7 MCHC 33.0 RDW 13.0 Plt Count 244 Seg Neutrophils % Not Reportable Lymphocytes % Not Reportable Monocytes % Not Reportable Eosinophils % Not Reportable Basophils % Not Reportable Absolute Neutrophils Not Reportable Absolute Lymphocytes Not Reportable Absolute Monocytes Not Reportable Absolute Eosinophils Not Reportable Absolute Basophils Not Reportable Carbonic Acid HCO3/H2CO3 Ratio ABG pH ABG pCO2 ABG pO2 ABG HCO3 ABG O2 Saturation ABG Base Excess FiO2 Sodium 143.1 Potassium 4.1 Chloride 103 Carbon Dioxide 34 H Anion Gap 6 BUN 19 Creatinine 0.64 Est GFR ( Amer) > 60 Est GFR (Non-Af Amer) > 60 Glucose 125 H Calcium 8.7 Phosphorus 2.6 Magnesium 2.4 H Total Bilirubin AST ALT Alkaline Phosphatase Total Protein Albumin 02/22/18 02/22/18 02/22/18 04:30 04:30 04:30 WBC 15.8 H RBC 3.66 L Hgb 11.7 L Hct 35.9 L MCV 98 H MCH 31.9 MCHC 32.6 RDW 12.6 Plt Count 208 Seg Neutrophils % Not Reportable Lymphocytes % Not Reportable Monocytes % Not Reportable Eosinophils % Not Reportable Basophils % Not Reportable Absolute Neutrophils Not Reportable Absolute Lymphocytes Not Reportable Absolute Monocytes Not Reportable Absolute Eosinophils Not Reportable Absolute Basophils Not Reportable Carbonic Acid 1.30 HCO3/H2CO3 Ratio 25:1 ABG pH 7.51 H ABG pCO2 43.2 ABG pO2 63.5 L ABG HCO3 33.7 H ABG O2 Saturation 94.0 ABG Base Excess 9.7 FiO2 4 Sodium 141.5 Potassium 4.0 Chloride 104 Carbon Dioxide 33 H Anion Gap 5 BUN 23 H Creatinine 0.56 Est GFR ( Amer) > 60 Est GFR (Non-Af Amer) > 60 Glucose 112 H Calcium 8.0 L Phosphorus Magnesium 2.4 H Total Bilirubin 0.6 AST 76 H ALT 184 H Alkaline Phosphatase 28 L Total Protein 4.6 L Albumin 2.4 L 02/20/18 08:50 Tracheal Aspirate Gram Stain - Final 02/20/18 08:50 Tracheal Aspirate Sputum Culture - Final 02/13/18 02/14/18 02/14/18 17:31 21:00 21:00 Creatine Kinase 286 H CK-MB (CK-2) 13.80 H Troponin I < 0.012 < 0.012 02/15/18 02/15/18 02/21/18 04:55 04:55 20:32 Creatine Kinase 162 H 248 H CK-MB (CK-2) 8.94 H Troponin I < 0.012 02/21/18 20:32 Creatine Kinase CK-MB (CK-2) 1.15 Troponin I 0.029 EKG Comments: Sinus rhythm, no sustained tachycardia or bradycardia noted. Impressions: KUB X-Ray 02/17/18 00:00 IMPRESSION: VERY LITTLE BOWEL GAS PRESENT. LIFE LINES DESCRIBED. NO RADIOGRAPHIC EVIDENCE FOR ACUTE ABDOMINAL DISEASE. Chest/Abdomen CTA 02/18/18 00:00 IMPRESSION: NORMAL CTA OF THE CHEST. NO PULMONARY EMBOLI. Abdomen/Pelvis CT 02/18/18 07:24 IMPRESSION: NO SIGNIFICANT OR ACUTE FINDING IN THE ABDOMEN OR PELVIS ON CT SCAN WITH IV CONTRAST. Chest X-Ray 02/20/18 05:00 IMPRESSION: No significant change. Assessment & Plan - Diagnosis (1) Wide-complex tachycardia Is this a current diagnosis for this admission?: Yes (2) Tachycardia Is this a current diagnosis for this admission?: Yes (3) Acute exacerbation of COPD with asthma Is this a current diagnosis for this admission?: Yes (4) COPD with respiratory failure, acute Is this a current diagnosis for this admission?: Yes (5) Hypokalemia due to loss of potassium Is this a current diagnosis for this admission?: Yes (6) Essential hypertension Is this a current diagnosis for this admission?: Yes - Notes Notes: No further wide-complex tachycardia, ventricular tachycardia noted. Continue current management plans. Will follow for any cardiac dysrhythmia. Wide-complex tachycardia: No further recurrences noted. Maintain normal range of potassium and magnesium. Patient LVEF was noted to be normal therefore low risk of going into any sustained cardiac dysrhythmia. Tachycardia: This has improved. Overall heart rate is slower. Acute exacerbation of COPD with asthma: Patient being well managed by underwriting account representative and other specialist involved. Hypokalemia: Remains corrected. Try to keep potassium above 3.8 mEq/L. Hypertension: Blood pressure seems under reasonable control. CVA : Currently stable. We will continue to follow patient. - Time Time with patient: 15-25 minutes - CODE STATUS was discussed, patient remains full code. Surrogate decision-maker unchanged. Multiple medical problems were addressed. More than 50% of the time spent coordinating care, discussing management plans with involved caregivers. Management plans discussed with involved personnels. Medical decision making was of moderate to high complexity , patient's has multiple comorbidities.
--- NOTE | 2018-02-23 22:43 | PDOC PROGRESS REPORT ---
Subjective Progress Note for:: 02/23/18 Subjective:: Patient seems to be doing better. Patient was extubated 48 hrs ago. Pt is denying any chest arm or neck discomfort. Patient denying any PND, orthopnea. Patient denied any sustained palpitations, dizziness, syncope, near syncope. Patient noted to have fever. Patient denying any other significant discomfort. Patient is maintaining sinus rhythm. Review of systems: Rest review of systems negative. Medications: Medications have been reviewed. Medications reviewed. Reason For Visit: WHEEZING,CHRONIC OBSTRUCTIVE ASTHMA WITH EXACERBAT Physical Exam Vital Signs: Temp Pulse Resp BP Pulse Ox 98.4 F 127 H 22 H 96/54 L 100 02/23/18 22:00 02/23/18 20:31 02/23/18 22:00 02/23/18 20:21 02/23/18 20:31 Intake & Output 02/22/18 02/23/18 02/24/18 06:59 06:59 06:59 Intake Total 1479 3590 400 Output Total 3810 3095 900 Balance -2331 495 -500 Weight 65.8 kg 66.7 kg Exam: GENERAL: well-nourished and in no acute distress. Alert and oriented x3 HEAD: Atraumatic, normocephalic. EYES: Pupils equal round and reactive to light, extraocular movements intact, sclera anicteric, conjunctiva are normal. ENT: TMs normal, nares patent, oropharynx clear without exudates. Moist mucous membranes. No oral ulcerations or bleeding gums noted NECK: supple without lymphadenopathy. Trachea is central. No cervical or axillary lymphadenopathy noted. Carotids are 2+, JVD WNL LUNGS: Respiration seems nonlabored, no significant accessory muscle action noted. Breath sounds clear to auscultation bilaterally and equal noted. few scattered wheezes rales or rhonchi noted. No significant dullness noted on percussion. CHEST: Palpation of the chest wall shows no significant chest wall tenderness. Bilateral mastectomy noted. 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 ABDOMEN: Soft, no significant tenderness appreciated, normoactive bowel sounds. No guarding, no rebound. No rigidity noted . No masses appreciated. EXTREMITIES: Pedal pulses are 1-2+, no calf tenderness noted. No clubbing or cyanosis. 1 + pedal edema noted NEUROLOGICAL: Focused neurological exam showed no facial asymmetry. Patient suspected to have bilateral lower extremity weakness and has been noted to be mostly in bed. PSYCH: Normal mood, normal affect. Judgment and insight within normal limits. SKIN: No significant ecchymosis, skin is noted to be warm. MUSCULOSKELETAL EXAM: No significant acute joint swelling noted. Results Laboratory Results: 02/23/18 05:40 02/23/18 16:30 02/23/18 02/23/18 02/23/18 05:40 05:40 15:30 WBC 19.1 H RBC 3.65 L Hgb 11.7 L Hct 35.6 L MCV 98 H MCH 32.1 MCHC 32.9 RDW 12.6 Plt Count 189 Seg Neutrophils % Not Reportable Lymphocytes % Not Reportable Monocytes % Not Reportable Eosinophils % Not Reportable Basophils % Not Reportable Absolute Neutrophils Not Reportable Absolute Lymphocytes Not Reportable Absolute Monocytes Not Reportable Absolute Eosinophils Not Reportable Absolute Basophils Not Reportable Sodium 141.8 Potassium 3.8 Chloride 104 Carbon Dioxide 32 H Anion Gap 6 BUN 21 H Creatinine 0.54 Est GFR ( Amer) > 60 Est GFR (Non-Af Amer) > 60 Glucose 112 H Calcium 8.0 L Magnesium 2.3 Urine Color YELLOW Urine Appearance SLIGHTLY-CLOUDY Urine pH 6.0 Ur Specific [place] 1.023 Urine Protein 30 H Urine Glucose (UA) NEGATIVE Urine Ketones NEGATIVE Urine Blood LARGE H Urine Nitrite NEGATIVE Ur Leukocyte Esterase SMALL H Urine WBC (Auto) >182 Urine RBC (Auto) 109 02/23/18 16:30 WBC RBC Hgb Hct MCV MCH MCHC RDW Plt Count Seg Neutrophils % Lymphocytes % Monocytes % Eosinophils % Basophils % Absolute Neutrophils Absolute Lymphocytes Absolute Monocytes Absolute Eosinophils Absolute Basophils Sodium 141.1 Potassium 3.8 Chloride 103 Carbon Dioxide 32 H Anion Gap 6 BUN 23 H Creatinine 0.60 Est GFR ( Amer) > 60 Est GFR (Non-Af Amer) > 60 Glucose 103 Calcium 8.5 Magnesium 2.2 Urine Color Urine Appearance Urine pH Ur Specific [place] Urine Protein Urine Glucose (UA) Urine Ketones Urine Blood Urine Nitrite Ur Leukocyte Esterase Urine WBC (Auto) Urine RBC (Auto) 02/13/18 02/14/18 02/14/18 17:31 21:00 21:00 Creatine Kinase 286 H CK-MB (CK-2) 13.80 H Troponin I < 0.012 < 0.012 02/15/18 02/15/18 02/21/18 04:55 04:55 20:32 Creatine Kinase 162 H 248 H CK-MB (CK-2) 8.94 H Troponin I < 0.012 02/21/18 20:32 Creatine Kinase CK-MB (CK-2) 1.15 Troponin I 0.029 Impressions: Chest/Abdomen CTA 02/18/18 00:00 IMPRESSION: NORMAL CTA OF THE CHEST. NO PULMONARY EMBOLI. Abdomen/Pelvis CT 02/18/18 07:24 IMPRESSION: NO SIGNIFICANT OR ACUTE FINDING IN THE ABDOMEN OR PELVIS ON CT SCAN WITH IV CONTRAST. Chest X-Ray 02/20/18 05:00 IMPRESSION: No significant change. KUB X-Ray 02/23/18 00:00 IMPRESSION: Large amount of stool in the ascending colon and hepatic flexure. Assessment & Plan - Diagnosis (1) Wide-complex tachycardia Is this a current diagnosis for this admission?: Yes (2) Tachycardia Is this a current diagnosis for this admission?: Yes (3) Acute exacerbation of COPD with asthma Is this a current diagnosis for this admission?: Yes (4) COPD with respiratory failure, acute Is this a current diagnosis for this admission?: Yes (5) Hypokalemia due to loss of potassium Is this a current diagnosis for this admission?: Yes (6) Essential hypertension Is this a current diagnosis for this admission?: Yes - Notes Notes: Telemetry shows mild intermittent sinus tachycardia but overall improved. No further wide-complex tachycardia, ventricular tachycardia noted. Continue current management plans. Will follow for any cardiac dysrhythmia. Wide-complex tachycardia: Yesterday patient was noted to have wide-complex tachycardia. This was nonsustained. Potassium is noted to be low. Recommend replacing potassium and magnesium. Patient LVEF was noted to be normal therefore low risk of going into any sustained cardiac dysrhythmia. Once more stable, and ischemia evaluation could be performed. Tachycardia: Possibly related to underlying metabolic reasons. Patient could be getting too much beta2 stimulation. May consider switching to Xopenex unless it has already been done. Acute exacerbation of COPD with asthma: Patient being well managed by hotbed transfer operator and other specialist involved. Hypokalemia: Recommend replacement. Try to keep potassium above 3.8 mEq/L. Hypertension: Blood pressure seems under reasonable control. CVA : Currently stable. We will sign off patient, please reconsult if needed. - Time Time with patient: 15-25 minutes - CODE STATUS was discussed, patient remains full code. Surrogate decision-maker unchanged. Multiple medical problems were addressed. More than 50% of the time spent coordinating care, discussing management plans with involved caregivers. Management plans discussed with involved personnels. Medical decision making was of moderate to high complexity , patient's has multiple comorbidities.
[2018-02-23] MEDS: ACETAMINOPHEN 325 MG TABLET PO PRN (23:40)
[2018-02-24] MEDS: DILTIAZEM HCL 90 MG TABLET PO SCH ×5 (01:21→23:02)
[2018-02-24] MEDS: LEVALBUTEROL HCL NEB 1.25 MG/3 ML AMPUL NEB SCH ×6 (04:51→23:51)
[2018-02-24] MEDS: IPRATROPIUM BROMIDE 0.02% NEB 0.5 MG/2.5 ML AMPUL NEB SCH ×6 (04:51→23:51)
[2018-02-24] MEDS: METHYLPREDNISOLONE INJ 40 MG/1 ML SDV IV SCH ×3 (05:41→22:58)
[2018-02-24] MEDS: LANSOPRAZOLE 30 MG TAB.RAP.DR PO SCH (05:41)
[2018-02-24] MEDS: FUROSEMIDE 20 MG TABLET PO SCH (09:59)
[2018-02-24] MEDS: LISINOPRIL 10 MG TABLET PO SCH (09:59)
[2018-02-24] MEDS: FLUTICASONE/SALMETEROL DISKUS 500-50 MCG/DOSE IH SCH ×2 (09:59→22:58)
[2018-02-24] MEDS: CEFTRIAXONE SODIUM 1,000 MG in NORMAL SALINE 50 ML IV SCH (09:59)
[2018-02-24] MEDS: ANASTROZOLE 1 MG TABLET PO SCH (09:59)
[2018-02-24] MEDS: TIOTROPIUM BROMIDE DPI 5 CAP/KIT (18 MCG/CAP) IH SCH (09:59)
[2018-02-24] MEDS: ENOXAPARIN SODIUM INJ 40 MG/0.4 ML DISP.SYRIN SUBCUT SCH (10:00)
[2018-02-24] MEDS: NICOTINE 14 MG/24 HR PATCH.TD24 TD SCH (10:00)
[2018-02-24] MEDS ORDERED: BISACODYL 10 MG SUPP.RECT PR ONE (13:56)
[2018-02-24] MEDS ORDERED: LACTULOSE SYRUP 20 GM/30 ML UDCUP PO ONE (13:56)
--- NOTE | 2018-02-24 13:56 | PDOC PROGRESS REPORT ---
Subjective Progress Note for:: 02/24/18 Subjective:: No chest pain. She remain on supplemental oxygen via nasal cannula with difficulty breathing. Her tachycardia persist without significant improvement. No nausea, vomiting, or abdominal pain. She reported significant muscle cramps in her legs. Reason For Visit: WHEEZING,CHRONIC OBSTRUCTIVE ASTHMA WITH EXACERBAT Physical Exam Vital Signs: Temp Pulse Resp BP Pulse Ox 98.9 F 100 20 122/65 95 02/24/18 11:51 02/24/18 11:52 02/24/18 11:52 02/24/18 11:51 02/24/18 11:52 Intake & Output 02/23/18 02/24/18 02/25/18 06:59 06:59 06:59 Intake Total 3590 440 318 Output Total 3095 1300 Balance 495 -860 318 Weight 66.7 kg 65.9 kg Physical Exam: General appearance: PRESENT: no acute distress, well-developed, well-nourished Head exam: PRESENT: atraumatic, normocephalic Eye exam: PRESENT: conjunctiva pink. ABSENT: conjunctival injection Ear exam: PRESENT: normal external ear exam Mouth exam: PRESENT: moist Respiratory exam: PRESENT: decreased breath sounds - at lung bases, rhonchi - minimal end expiratory phase Cardiovascular exam: PRESENT: RRR, tachycardia. ABSENT: diastolic murmur, rubs , systolic murmur Vascular exam: ABSENT: pallor GI/Abdominal exam: PRESENT: normal bowel sounds, soft. ABSENT: distended, guarding, mass, organomegaly, rebound, tenderness Extremities exam: ABSENT: pedal edema Musculoskeletal exam: PRESENT: normal inspection Neurological exam: PRESENT: alert, awake, oriented to person, oriented to place , oriented to time, oriented to situation, CN II-XII grossly intact. ABSENT: motor sensory deficit Psychiatric exam: PRESENT: appropriate affect, normal mood. ABSENT: homicidal ideation, suicidal ideation Skin exam: PRESENT: dry, intact, warm. ABSENT: cyanosis, rash Results Laboratory Results: 02/23/18 05:40 02/23/18 16:30 02/23/18 02/23/18 15:30 16:30 Sodium 141.1 Potassium 3.8 Chloride 103 Carbon Dioxide 32 H Anion Gap 6 BUN 23 H Creatinine 0.60 Est GFR ( Amer) > 60 Est GFR (Non-Af Amer) > 60 Glucose 103 Calcium 8.5 Magnesium 2.2 Urine Color YELLOW Urine Appearance SLIGHTLY-CLOUDY Urine pH 6.0 Ur Specific [place] 1.023 Urine Protein 30 H Urine Glucose (UA) NEGATIVE Urine Ketones NEGATIVE Urine Blood LARGE H Urine Nitrite NEGATIVE Ur Leukocyte Esterase SMALL H Urine WBC (Auto) >182 Urine RBC (Auto) 109 02/13/18 02/14/18 02/14/18 17:31 21:00 21:00 Creatine Kinase 286 H CK-MB (CK-2) 13.80 H Troponin I < 0.012 < 0.012 02/15/18 02/15/18 02/21/18 04:55 04:55 20:32 Creatine Kinase 162 H 248 H CK-MB (CK-2) 8.94 H Troponin I < 0.012 02/21/18 20:32 Creatine Kinase CK-MB (CK-2) 1.15 Troponin I 0.029 Impressions: Chest/Abdomen CTA 02/18/18 00:00 IMPRESSION: NORMAL CTA OF THE CHEST. NO PULMONARY EMBOLI. Abdomen/Pelvis CT 02/18/18 07:24 IMPRESSION: NO SIGNIFICANT OR ACUTE FINDING IN THE ABDOMEN OR PELVIS ON CT SCAN WITH IV CONTRAST. Chest X-Ray 02/20/18 05:00 IMPRESSION: No significant change. KUB X-Ray 02/23/18 00:00 IMPRESSION: Large amount of stool in the ascending colon and hepatic flexure. Assessment & Plan - Diagnosis (1) COPD with respiratory failure, acute Is this a current diagnosis for this admission?: Yes (2) Acute exacerbation of COPD with asthma Is this a current diagnosis for this admission?: Yes (3) Cigarette smoker one half pack a day or less Is this a current diagnosis for this admission?: Yes (4) Essential hypertension Is this a current diagnosis for this admission?: Yes (5) HLD (hyperlipidemia) Qualifiers: Hyperlipidemia type: unspecified Qualified Code(s): E78.5 - Hyperlipidemia , unspecified Is this a current diagnosis for this admission?: Yes (6) CVA, old, hemiparesis Is this a current diagnosis for this admission?: Yes (7) Seasonal allergic rhinitis Qualifiers: Allergic rhinitis trigger: unspecified Qualified Code(s): J30.2 - Other seasonal allergic rhinitis Is this a current diagnosis for this admission?: Yes (8) GERD (gastroesophageal reflux disease) Qualifiers: Esophagitis presence: without esophagitis Qualified Code(s): K21.9 - Gastro -esophageal reflux disease without esophagitis Is this a current diagnosis for this admission?: Yes (9) Depression Qualifiers: Depression Type: unspecified Qualified Code(s): F32.9 - Major depressive disorder, single episode, unspecified Is this a current diagnosis for this admission?: Yes (10) Status post bilateral mastectomy Is this a current diagnosis for this admission?: Yes (11) Yeast cystitis Is this a current diagnosis for this admission?: Yes (12) Hypokalemia due to loss of potassium Is this a current diagnosis for this admission?: Yes (13) Constipation by delayed colonic transit Is this a current diagnosis for this admission?: Yes (14) Tachyarrhythmia Is this a current diagnosis for this admission?: Yes - Time Time Spent with patient: 25-34 minutes Medications reviewed and adjusted accordingly: Yes Anticipated discharge: Home with Homehealth Within: Other - Inpatient Certification Based on my medical assessment, after consideration of the patient's comorbidities, presenting symptoms, or acuity I expect that the services needed warrant INPATIENT care.: Yes I certify that my determination is in accordance with my understanding of Medicare's requirements for reasonable and necessary INPATIENT services [42 CFR 412.3e].: Yes Medical Necessity: Need Close Monitoring Due to Risk of Patient Decompensation, Need For IV Fluids, Need For Continuous Telemetry Monitoring, Need for Nebulizer Therapy and Monitoring of Response, Need for IV Antibiotics, Risk of Complication if Not Cared For in Hospital Post Hospital Care: D/C [employer] Documentation - Plan Summary Plan Summary: Start on Dulcolax 10 mg AL and Lactulose 30 gm po x 1 dose. Continue all other current medication management
[2018-02-24] MEDS: ACETAMINOPHEN 325 MG TABLET PO PRN ×2 (14:48→23:09)
[2018-02-24] MEDS: ALPRAZOLAM 0.25 MG TABLET PO PRN ×2 (14:50→23:08)
[2018-02-24] MEDS: NORMAL SALINE 1000 ML 1,000 ML IV PRN (17:11)
[2018-02-24] MEDS: LEVOFLOXACIN 750 MG/D5W RTU 750 MG/150 ML RTUPB IV SCH (22:58)
[2018-02-24] MEDS: NORMAL SALINE INJ/PF 0.9% 10 ML SDV IV PRN (23:09)
[2018-02-25] MEDS: IPRATROPIUM BROMIDE 0.02% NEB 0.5 MG/2.5 ML AMPUL NEB SCH ×5 (04:23→20:07)
[2018-02-25] MEDS: LEVALBUTEROL HCL NEB 1.25 MG/3 ML AMPUL NEB SCH ×5 (04:23→20:07)
[2018-02-25] MEDS: ACETAMINOPHEN 325 MG TABLET PO PRN ×3 (04:26→12:30)
[2018-02-25] MEDS: LANSOPRAZOLE 30 MG TAB.RAP.DR PO SCH (06:03)
[2018-02-25] MEDS: METHYLPREDNISOLONE INJ 40 MG/1 ML SDV IV SCH ×3 (06:03→21:42)
[2018-02-25] MEDS: DILTIAZEM HCL 90 MG TABLET PO SCH ×3 (06:03→18:06)
[2018-02-25] MEDS: FUROSEMIDE 20 MG TABLET PO SCH (09:56)
[2018-02-25] MEDS: LISINOPRIL 10 MG TABLET PO SCH (09:56)
[2018-02-25] MEDS: ANASTROZOLE 1 MG TABLET PO SCH (09:57)
[2018-02-25] MEDS: FLUTICASONE/SALMETEROL DISKUS 500-50 MCG/DOSE IH SCH ×2 (09:57→21:41)
[2018-02-25] MEDS: NICOTINE 14 MG/24 HR PATCH.TD24 TD SCH (09:57)
[2018-02-25] MEDS: ENOXAPARIN SODIUM INJ 40 MG/0.4 ML DISP.SYRIN SUBCUT SCH (10:01)
[2018-02-25] MEDS: TIOTROPIUM BROMIDE DPI 5 CAP/KIT (18 MCG/CAP) IH SCH (10:02)
[2018-02-25] MEDS: CEFTRIAXONE SODIUM 1,000 MG in NORMAL SALINE 50 ML IV SCH (10:10)
--- NOTE | 2018-02-25 11:58 | PDOC PROGRESS REPORT ---
Subjective Progress Note for:: 02/25/18 Subjective:: No chest pain but remain tachycardiac. Breathing is fairly better she remain on supplemental oxygen via nasal cannula. No abdominal pain, nausea, or vomiting. She reported ongoing pain in her legs and mostly at night time. Reason For Visit: WHEEZING,CHRONIC OBSTRUCTIVE ASTHMA WITH EXACERBAT Physical Exam Vital Signs: Temp Pulse Resp BP Pulse Ox 98.6 F 112 H 18 110/63 95 02/25/18 07:28 02/25/18 07:42 02/25/18 07:42 02/25/18 07:28 02/25/18 07:42 Intake & Output 02/24/18 02/25/18 02/26/18 06:59 06:59 06:59 Intake Total 1440 812 Output Total 1300 Balance 140 812 Weight 65.9 kg 63.6 kg Physical Exam: General appearance: PRESENT: no acute distress, well-developed, well-nourished Head exam: PRESENT: atraumatic, normocephalic Eye exam: PRESENT: conjunctiva pink. Ear exam: PRESENT: normal external ear exam Mouth exam: PRESENT: moist Respiratory exam: PRESENT: decreased breath sounds - at lung bases, rhonchi - minimal end expiratory phase Cardiovascular exam: PRESENT: RRR, tachycardia. ABSENT: diastolic murmur, rubs , systolic murmur Vascular exam: ABSENT: pallor GI/Abdominal exam: PRESENT: normal bowel sounds, soft. ABSENT: distended, guarding, mass, organomegaly, rebound, tenderness Extremities exam: ABSENT: pedal edema Musculoskeletal exam: PRESENT: normal inspection Neurological exam: PRESENT: alert, awake, oriented to person, oriented to place , oriented to time, oriented to situation, CN II-XII grossly intact. ABSENT: motor sensory deficit Psychiatric exam: PRESENT: appropriate affect, normal mood. ABSENT: homicidal ideation, suicidal ideation Skin exam: PRESENT: dry, intact, warm. ABSENT: cyanosis, rash Results Laboratory Results: 02/23/18 05:40 02/23/18 16:30 02/23/18 15:30 Catheterized Urine Urine Culture - Final Staph Coagulase Negative 02/13/18 02/14/18 02/14/18 17:31 21:00 21:00 Creatine Kinase 286 H CK-MB (CK-2) 13.80 H Troponin I < 0.012 < 0.012 02/15/18 02/15/18 02/21/18 04:55 04:55 20:32 Creatine Kinase 162 H 248 H CK-MB (CK-2) 8.94 H Troponin I < 0.012 02/21/18 20:32 Creatine Kinase CK-MB (CK-2) 1.15 Troponin I 0.029 Impressions: Chest/Abdomen CTA 02/18/18 00:00 IMPRESSION: NORMAL CTA OF THE CHEST. NO PULMONARY EMBOLI. Abdomen/Pelvis CT 02/18/18 07:24 IMPRESSION: NO SIGNIFICANT OR ACUTE FINDING IN THE ABDOMEN OR PELVIS ON CT SCAN WITH IV CONTRAST. Chest X-Ray 02/20/18 05:00 IMPRESSION: No significant change. KUB X-Ray 02/23/18 00:00 IMPRESSION: Large amount of stool in the ascending colon and hepatic flexure. Assessment & Plan - Diagnosis (1) COPD with respiratory failure, acute Is this a current diagnosis for this admission?: Yes (2) Acute exacerbation of COPD with asthma Is this a current diagnosis for this admission?: Yes (3) Cigarette smoker one half pack a day or less Is this a current diagnosis for this admission?: Yes (4) Essential hypertension Is this a current diagnosis for this admission?: Yes (5) HLD (hyperlipidemia) Qualifiers: Hyperlipidemia type: unspecified Qualified Code(s): E78.5 - Hyperlipidemia , unspecified Is this a current diagnosis for this admission?: Yes (6) CVA, old, hemiparesis Is this a current diagnosis for this admission?: Yes (7) Seasonal allergic rhinitis Qualifiers: Allergic rhinitis trigger: unspecified Qualified Code(s): J30.2 - Other seasonal allergic rhinitis Is this a current diagnosis for this admission?: Yes (8) GERD (gastroesophageal reflux disease) Qualifiers: Esophagitis presence: without esophagitis Qualified Code(s): K21.9 - Gastro -esophageal reflux disease without esophagitis Is this a current diagnosis for this admission?: Yes (9) Depression Qualifiers: Depression Type: unspecified Qualified Code(s): F32.9 - Major depressive disorder, single episode, unspecified Is this a current diagnosis for this admission?: Yes (10) Status post bilateral mastectomy Is this a current diagnosis for this admission?: Yes (11) Yeast cystitis Is this a current diagnosis for this admission?: Yes (12) Hypokalemia due to loss of potassium Is this a current diagnosis for this admission?: Yes (13) Constipation by delayed colonic transit Is this a current diagnosis for this admission?: Yes (14) Tachyarrhythmia Is this a current diagnosis for this admission?: Yes - Time Time Spent with patient: 25-34 minutes Medications reviewed and adjusted accordingly: Yes Anticipated discharge: SNF, Acute Rehab Within: Other - Inpatient Certification Based on my medical assessment, after consideration of the patient's comorbidities, presenting symptoms, or acuity I expect that the services needed warrant INPATIENT care.: Yes I certify that my determination is in accordance with my understanding of Medicare's requirements for reasonable and necessary INPATIENT services [42 CFR 412.3e].: Yes Medical Necessity: Need Close Monitoring Due to Risk of Patient Decompensation, Need For IV Fluids, Need For Continuous Telemetry Monitoring, Need for Nebulizer Therapy and Monitoring of Response, Need for IV Antibiotics, Risk of Complication if Not Cared For in Hospital Post Hospital Care: D/C or Transfer Summary - Plan Summary Plan Summary: See attending physician orders.
[2018-02-25] MEDS: LEVOFLOXACIN 750 MG/D5W RTU 750 MG/150 ML RTUPB IV SCH (21:40)
[2018-02-25] MEDS: GABAPENTIN 100 MG CAPSULE PO SCH (21:42)
[2018-02-25] MEDS: NORMAL SALINE INJ/PF 0.9% 10 ML SDV IV PRN (21:42)
[2018-02-26] MEDS: DILTIAZEM HCL 90 MG TABLET PO SCH ×4 (00:09→17:53)
[2018-02-26] MEDS: LEVALBUTEROL HCL NEB 1.25 MG/3 ML AMPUL NEB SCH ×6 (00:10→19:42)
[2018-02-26] MEDS: IPRATROPIUM BROMIDE 0.02% NEB 0.5 MG/2.5 ML AMPUL NEB SCH ×6 (00:10→19:41)
[2018-02-26] MEDS: ACETAMINOPHEN 325 MG TABLET PO PRN ×4 (02:28→20:48)
[2018-02-26] MEDS ORDERED: POLYETHYLENE GLYCOL 3350 POWDER 17 GM/1 PACKET PO ONE (03:15)
[2018-02-26] MEDS: NORMAL SALINE INJ/PF 0.9% 10 ML SDV IV PRN (05:04)
[2018-02-26] MEDS: METHYLPREDNISOLONE INJ 40 MG/1 ML SDV IV SCH ×3 (05:05→22:53)
[2018-02-26] MEDS: LANSOPRAZOLE 30 MG TAB.RAP.DR PO SCH (05:06)
[2018-02-26] MEDS: NORMAL SALINE 1000 ML 1,000 ML IV PRN ×2 (05:12→22:56)
[2018-02-26 05:57] LABS: HEMATOCRIT 33.5 % (36.0-47.0); HEMOGLOBIN 11.1 g/dL (12.0-15.5); MEAN CORPUSCULAR HEMOGLOBIN 32.7 pg (27.0-33.4); MEAN CORPUSCULAR VOLUME 99 fl (80-97); PLATELET COUNT 178 10^3/uL (150-450); RED BLOOD COUNT 3.38 10^6/uL (3.72-5.28); WHITE BLOOD COUNT 19.8 10^3/uL (4.0-10.5)
[2018-02-26 06:03] LABS: ALANINE AMINOTRANSFERASE 147 U/L (9-52); ALBUMIN 2.5 g/dL (3.5-5.0); ALKALINE PHOSPHATASE 33 U/L (38-126); ANION GAP 9 (5-19); ASPARTATE AMINO TRANSFERASE 30 U/L (14-36); BILIRUBIN,DIRECT 0.2 mg/dL (0.0-0.4); BILIRUBIN,TOTAL 0.3 mg/dL (0.2-1.3); BLOOD UREA NITROGEN 16 mg/dL (7-20); CALCIUM 8.1 mg/dL (8.4-10.2); CARBON DIOXIDE 28 mmol/L (22-30); CHLORIDE 105 mmol/L (98-107); GLUCOSE 109 mg/dL (75-110); SODIUM 141.8 mmol/L (137-145); TOTAL PROTEIN 4.7 g/dL (6.3-8.2)
[2018-02-26 06:11] LABS: ABSOLUTE LYMPHOCYTES# (MANUAL) 0.4 10^3/uL (0.5-4.7); ABSOLUTE MONOCYTES # (MANUAL) 0.2 10^3/uL (0.1-1.4); ABSOLUTE NEUTROPHILS# (MANUAL) 19.2 10^3/uL (1.7-8.2); BASOPHILS % (MANUAL) 0 % (0-2); EOSINOPHILS % (MANUAL) 0 % (0-6); LYMPHOCYTES % (MANUAL) 2 % (13-45); MONOCYTES % (MANUAL) 1 % (3-13); NUCLEATED RED BLOOD CELLS 1 /100 WBC (0); PLATELET COMMENT ADEQUATE; RBC MORPHOLOGY COMMENT NORMO-CYTIC/CHROMIC; SEGMENTED NEUTROPHILS % (MAN) 97 % (42-78); TOTAL CELLS COUNTED 100
[2018-02-26] MEDS: POTASSIUM CHLORIDE 10 MEQ CAPSULE.ER PO SCH ×3 (06:36→17:52)
[2018-02-26] MEDS: LISINOPRIL 10 MG TABLET PO SCH (10:11)
[2018-02-26] MEDS: FLUTICASONE/SALMETEROL DISKUS 500-50 MCG/DOSE IH SCH ×2 (10:11→22:53)
[2018-02-26] MEDS: FUROSEMIDE 20 MG TABLET PO SCH (10:12)
[2018-02-26] MEDS: ENOXAPARIN SODIUM INJ 40 MG/0.4 ML DISP.SYRIN SUBCUT SCH (10:13)
[2018-02-26] MEDS: ANASTROZOLE 1 MG TABLET PO SCH (10:14)
[2018-02-26] MEDS: NICOTINE 14 MG/24 HR PATCH.TD24 TD SCH (10:15)
[2018-02-26] MEDS: TIOTROPIUM BROMIDE DPI 5 CAP/KIT (18 MCG/CAP) IH SCH (10:21)
[2018-02-26] MEDS: CEFTRIAXONE SODIUM 1,000 MG in NORMAL SALINE 50 ML IV SCH (10:25)
--- NOTE | 2018-02-26 13:01 | PDOC PROGRESS REPORT ---
Subjective Progress Note for:: 02/26/18 Subjective:: Patient remain tachycardiac but denied any chest pain. Breathing is improving with use of supplemental oxygen via nasal cannula. No abdominal pain, nausea, or vomiting. No bowel movement so far. She reported some improvement in her leg pain but moved into her feet. Reason For Visit: WHEEZING,CHRONIC OBSTRUCTIVE ASTHMA WITH EXACERBAT Physical Exam Vital Signs: Temp Pulse Resp BP Pulse Ox 99.0 F 124 H 20 128/66 H 100 02/26/18 07:22 02/26/18 12:04 02/26/18 12:04 02/26/18 07:22 02/26/18 12:04 Intake & Output 02/25/18 02/26/18 02/27/18 06:59 06:59 06:59 Intake Total 812 2110 Output Total 1000 Balance 812 1110 Weight 63.6 kg 71.4 kg Physical Exam: General appearance: PRESENT: no acute distress, well-developed, well-nourished Head exam: PRESENT: atraumatic, normocephalic Eye exam: PRESENT: conjunctiva pink. Ear exam: PRESENT: normal external ear exam Mouth exam: PRESENT: moist Respiratory exam: PRESENT: decreased breath sounds - at lung bases, rhonchi - minimal end expiratory phase Cardiovascular exam: PRESENT: tachycardia. ABSENT: diastolic murmur, rubs, systolic murmur Vascular exam: ABSENT: pallor GI/Abdominal exam: PRESENT: normal bowel sounds, soft. ABSENT: distended, guarding, mass, organomegaly, rebound, tenderness Extremities exam: ABSENT: pedal edema Musculoskeletal exam: PRESENT: normal inspection Neurological exam: PRESENT: alert, awake, oriented to person, oriented to place , oriented to time, oriented to situation, CN II-XII grossly intact. ABSENT: motor sensory deficit Psychiatric exam: PRESENT: appropriate affect, normal mood. ABSENT: homicidal ideation, suicidal ideation Skin exam: PRESENT: dry, intact, warm. ABSENT: cyanosis, rash Results Laboratory Results: 02/26/18 05:00 02/26/18 05:00 02/26/18 02/26/18 02/26/18 05:00 05:00 05:00 WBC 19.8 H RBC 3.38 L Hgb 11.1 L Hct 33.5 L MCV 99 H MCH 32.7 MCHC 33.0 RDW 13.0 Plt Count 178 Seg Neutrophils % Not Reportable Lymphocytes % Not Reportable Monocytes % Not Reportable Eosinophils % Not Reportable Basophils % Not Reportable Absolute Neutrophils Not Reportable Absolute Lymphocytes Not Reportable Absolute Monocytes Not Reportable Absolute Eosinophils Not Reportable Absolute Basophils Not Reportable Sodium 141.8 Potassium 3.0 L* Chloride 105 Carbon Dioxide 28 Anion Gap 9 BUN 16 Creatinine 0.62 Est GFR ( Amer) > 60 Est GFR (Non-Af Amer) > 60 Glucose 109 Calcium 8.1 L Magnesium 2.1 Total Bilirubin 0.3 AST 30 ALT 147 H Alkaline Phosphatase 33 L Total Protein 4.7 L Albumin 2.5 L 02/23/18 15:30 Catheterized Urine Urine Culture - Final Staph Coagulase Negative 02/13/18 02/14/18 02/14/18 17:31 21:00 21:00 Creatine Kinase 286 H CK-MB (CK-2) 13.80 H Troponin I < 0.012 < 0.012 02/15/18 02/15/18 02/21/18 04:55 04:55 20:32 Creatine Kinase 162 H 248 H CK-MB (CK-2) 8.94 H Troponin I < 0.012 02/21/18 20:32 Creatine Kinase CK-MB (CK-2) 1.15 Troponin I 0.029 Impressions: Chest/Abdomen CTA 02/18/18 00:00 IMPRESSION: NORMAL CTA OF THE CHEST. NO PULMONARY EMBOLI. Abdomen/Pelvis CT 02/18/18 07:24 IMPRESSION: NO SIGNIFICANT OR ACUTE FINDING IN THE ABDOMEN OR PELVIS ON CT SCAN WITH IV CONTRAST. Chest X-Ray 02/20/18 05:00 IMPRESSION: No significant change. KUB X-Ray 02/23/18 00:00 IMPRESSION: Large amount of stool in the ascending colon and hepatic flexure. Assessment & Plan - Diagnosis (1) COPD with respiratory failure, acute Is this a current diagnosis for this admission?: Yes (2) Acute exacerbation of COPD with asthma Is this a current diagnosis for this admission?: Yes (3) Cigarette smoker one half pack a day or less Is this a current diagnosis for this admission?: Yes (4) Essential hypertension Is this a current diagnosis for this admission?: Yes (5) HLD (hyperlipidemia) Qualifiers: Hyperlipidemia type: unspecified Qualified Code(s): E78.5 - Hyperlipidemia , unspecified Is this a current diagnosis for this admission?: Yes (6) CVA, old, hemiparesis Is this a current diagnosis for this admission?: Yes (7) Seasonal allergic rhinitis Qualifiers: Allergic rhinitis trigger: unspecified Qualified Code(s): J30.2 - Other seasonal allergic rhinitis Is this a current diagnosis for this admission?: Yes (8) GERD (gastroesophageal reflux disease) Qualifiers: Esophagitis presence: without esophagitis Qualified Code(s): K21.9 - Gastro -esophageal reflux disease without esophagitis Is this a current diagnosis for this admission?: Yes (9) Depression Qualifiers: Depression Type: unspecified Qualified Code(s): F32.9 - Major depressive disorder, single episode, unspecified Is this a current diagnosis for this admission?: Yes (10) Status post bilateral mastectomy Is this a current diagnosis for this admission?: Yes (11) Yeast cystitis Is this a current diagnosis for this admission?: Yes (12) Hypokalemia due to loss of potassium Is this a current diagnosis for this admission?: Yes (13) Constipation by delayed colonic transit Is this a current diagnosis for this admission?: Yes (14) Tachyarrhythmia Is this a current diagnosis for this admission?: Yes - Time Time Spent with patient: 25-34 minutes Medications reviewed and adjusted accordingly: Yes Anticipated discharge: SNF Within: Other - Inpatient Certification Based on my medical assessment, after consideration of the patient's comorbidities, presenting symptoms, or acuity I expect that the services needed warrant INPATIENT care.: Yes I certify that my determination is in accordance with my understanding of Medicare's requirements for reasonable and necessary INPATIENT services [42 CFR 412.3e].: Yes Medical Necessity: Need Close Monitoring Due to Risk of Patient Decompensation, Need For Continuous Telemetry Monitoring, Need for Nebulizer Therapy and Monitoring of Response, Risk of Complication if Not Cared For in Hospital Post Hospital Care: D/C or Transfer Summary - Plan Summary Plan Summary: See attending physician orders.
[2018-02-26] MEDS ORDERED: POTASSIUM CHLORIDE 10 MEQ CAPSULE.ER PO ONE (17:51)
[2018-02-26] MEDS: GABAPENTIN 100 MG CAPSULE PO SCH (22:55)
[2018-02-26] MEDS: ALPRAZOLAM 0.25 MG TABLET PO PRN (22:55)
[2018-02-27] MEDS: DILTIAZEM HCL 90 MG TABLET PO SCH ×4 (00:39→17:45)
[2018-02-27] MEDS: LEVALBUTEROL HCL NEB 1.25 MG/3 ML AMPUL NEB SCH ×6 (00:46→20:26)
[2018-02-27] MEDS: IPRATROPIUM BROMIDE 0.02% NEB 0.5 MG/2.5 ML AMPUL NEB SCH ×6 (00:46→20:26)
[2018-02-27] MEDS: ACETAMINOPHEN 325 MG TABLET PO PRN ×5 (01:39→20:52)
[2018-02-27] MEDS: METHYLPREDNISOLONE INJ 40 MG/1 ML SDV IV SCH ×3 (06:59→21:49)
[2018-02-27] MEDS: LANSOPRAZOLE 30 MG TAB.RAP.DR PO SCH (06:59)
[2018-02-27] MEDS: FLUTICASONE/SALMETEROL DISKUS 500-50 MCG/DOSE IH SCH ×2 (11:15→21:48)
[2018-02-27] MEDS: LISINOPRIL 10 MG TABLET PO SCH (11:15)
[2018-02-27] MEDS: ENOXAPARIN SODIUM INJ 40 MG/0.4 ML DISP.SYRIN SUBCUT SCH (11:15)
[2018-02-27] MEDS: ANASTROZOLE 1 MG TABLET PO SCH (11:15)
[2018-02-27] MEDS: FUROSEMIDE 20 MG TABLET PO SCH (11:16)
[2018-02-27] MEDS: TIOTROPIUM BROMIDE DPI 5 CAP/KIT (18 MCG/CAP) IH SCH (11:17)
[2018-02-27] MEDS: CEFTRIAXONE SODIUM 1,000 MG in NORMAL SALINE 50 ML IV SCH (11:21)
[2018-02-27] MEDS: NICOTINE 14 MG/24 HR PATCH.TD24 TD SCH (11:22)
[2018-02-27] MEDS ORDERED: POLYETHYLENE GLYCOL 3350 POWDER 17 GM/1 PACKET PO ONE (14:26)
[2018-02-27] MEDS ORDERED: BISACODYL 10 MG SUPP.RECT PR ONE (14:26)
--- NOTE | 2018-02-27 14:26 | PDOC PROGRESS REPORT ---
Subjective Progress Note for:: 02/27/18 Subjective:: Patient continue to experience constipation. No abdominal pain. No nausea or vomiting. No fever or chills. No chest pain. Breathing remain fairly stable. Reason For Visit: WHEEZING,CHRONIC OBSTRUCTIVE ASTHMA WITH EXACERBAT Physical Exam Vital Signs: Temp Pulse Resp BP Pulse Ox 98.7 F 117 H 18 101/70 96 02/27/18 07:46 02/27/18 12:48 02/27/18 12:48 02/27/18 07:46 02/27/18 12:48 Intake & Output 02/26/18 02/27/18 02/28/18 06:59 06:59 06:59 Intake Total 2110 1047 118 Output Total 1000 500 Balance 1110 547 118 Weight 71.4 kg 72.4 kg Physical Exam: General appearance: PRESENT: no acute distress, well-developed, well-nourished Head exam: PRESENT: atraumatic, normocephalic Eye exam: PRESENT: conjunctiva pink. Ear exam: PRESENT: normal external ear exam Mouth exam: PRESENT: moist Respiratory exam: PRESENT: decreased breath sounds - at lung bases, rhonchi - minimal end expiratory phase Cardiovascular exam: PRESENT: tachycardia. ABSENT: diastolic murmur, rubs, systolic murmur Vascular exam: ABSENT: pallor GI/Abdominal exam: PRESENT: normal bowel sounds, soft. ABSENT: distended, guarding, mass, organomegaly, rebound, tenderness Extremities exam: ABSENT: pedal edema, bilateral upper extremities lymphedema from her bilateral mastectomies. Musculoskeletal exam: PRESENT: normal inspection Neurological exam: PRESENT: alert, awake, oriented to person, oriented to place , oriented to time, oriented to situation, CN II-XII grossly intact. ABSENT: motor sensory deficit Psychiatric exam: PRESENT: appropriate affect, normal mood. ABSENT: homicidal ideation, suicidal ideation Skin exam: PRESENT: dry, intact, warm. ABSENT: cyanosis, rash Results Laboratory Results: 02/26/18 05:00 02/26/18 05:00 02/21/18 20:52 Blood Blood Culture - Final NO GROWTH IN 5 DAYS 02/21/18 20:32 Blood Blood Culture - Final NO GROWTH IN 5 DAYS 02/13/18 02/14/18 02/14/18 17:31 21:00 21:00 Creatine Kinase 286 H CK-MB (CK-2) 13.80 H Troponin I < 0.012 < 0.012 02/15/18 02/15/18 02/21/18 04:55 04:55 20:32 Creatine Kinase 162 H 248 H CK-MB (CK-2) 8.94 H Troponin I < 0.012 02/21/18 20:32 Creatine Kinase CK-MB (CK-2) 1.15 Troponin I 0.029 Impressions: Chest/Abdomen CTA 02/18/18 00:00 IMPRESSION: NORMAL CTA OF THE CHEST. NO PULMONARY EMBOLI. Abdomen/Pelvis CT 02/18/18 07:24 IMPRESSION: NO SIGNIFICANT OR ACUTE FINDING IN THE ABDOMEN OR PELVIS ON CT SCAN WITH IV CONTRAST. Chest X-Ray 02/20/18 05:00 IMPRESSION: No significant change. KUB X-Ray 02/23/18 00:00 IMPRESSION: Large amount of stool in the ascending colon and hepatic flexure. Assessment & Plan - Diagnosis (1) COPD with respiratory failure, acute Is this a current diagnosis for this admission?: Yes (2) Acute exacerbation of COPD with asthma Is this a current diagnosis for this admission?: Yes (3) Cigarette smoker one half pack a day or less Is this a current diagnosis for this admission?: Yes (4) Essential hypertension Is this a current diagnosis for this admission?: Yes (5) HLD (hyperlipidemia) Qualifiers: Hyperlipidemia type: unspecified Qualified Code(s): E78.5 - Hyperlipidemia , unspecified Is this a current diagnosis for this admission?: Yes (6) CVA, old, hemiparesis Is this a current diagnosis for this admission?: Yes (7) Seasonal allergic rhinitis Qualifiers: Allergic rhinitis trigger: unspecified Qualified Code(s): J30.2 - Other seasonal allergic rhinitis Is this a current diagnosis for this admission?: Yes (8) GERD (gastroesophageal reflux disease) Qualifiers: Esophagitis presence: without esophagitis Qualified Code(s): K21.9 - Gastro -esophageal reflux disease without esophagitis Is this a current diagnosis for this admission?: Yes (9) Depression Qualifiers: Depression Type: unspecified Qualified Code(s): F32.9 - Major depressive disorder, single episode, unspecified Is this a current diagnosis for this admission?: Yes (10) Status post bilateral mastectomy Is this a current diagnosis for this admission?: Yes (11) Yeast cystitis Is this a current diagnosis for this admission?: Yes (12) Hypokalemia due to loss of potassium Is this a current diagnosis for this admission?: Yes (13) Constipation by delayed colonic transit Is this a current diagnosis for this admission?: Yes (14) Tachyarrhythmia Is this a current diagnosis for this admission?: Yes - Time Time Spent with patient: 25-34 minutes Medications reviewed and adjusted accordingly: Yes Anticipated discharge: SNF, Acute Rehab Within: Other - Inpatient Certification Based on my medical assessment, after consideration of the patient's comorbidities, presenting symptoms, or acuity I expect that the services needed warrant INPATIENT care.: Yes I certify that my determination is in accordance with my understanding of Medicare's requirements for reasonable and necessary INPATIENT services [42 CFR 412.3e].: Yes Medical Necessity: Need Close Monitoring Due to Risk of Patient Decompensation, Need For Continuous Telemetry Monitoring, Need for Nebulizer Therapy and Monitoring of Response, Need for IV Antibiotics, Risk of Complication if Not Cared For in Hospital Post Hospital Care: D/C or Transfer Summary - Plan Summary Plan Summary: Maintain on all current medication management. Give Miralax 34 gm po x 1 dose and Dulcolax 10 mg SC x 1 dose. Start on Multaq 400 mg po q12 hours. I discussed case with Dr. Lamb, health tech, regarding her tachyarrhythmia
[2018-02-27 17:25] LABS: ANION GAP 7 (5-19); BLOOD UREA NITROGEN 18 mg/dL (7-20); CALCIUM 8.4 mg/dL (8.4-10.2); CARBON DIOXIDE 26 mmol/L (22-30); CHLORIDE 106 mmol/L (98-107); GLUCOSE 126 mg/dL (75-110); POTASSIUM 3.4 mmol/L (3.6-5.0); SODIUM 138.9 mmol/L (137-145)
--- NOTE | 2018-02-27 18:32 | PDOC PROGRESS REPORT ---
Subjective Progress Note for:: 02/27/18 Subjective:: Asked by sports intern to see the patient again because of tachycardia. No other event happened interveningly Patient was noted to be tachycardic and short of breath however she had just completed physical therapy. Pt is denying any chest arm or neck discomfort. Patient denying any PND, orthopnea. Patient denied any sustained palpitations, dizziness, syncope, near syncope. Patient noted to have fever. Patient denying any other significant discomfort. Patient is maintaining tachycardic rhythm with seems sinus tachycardia Review of systems: Rest review of systems negative. Medications: Medications have been reviewed. Medications reviewed. Reason For Visit: WHEEZING,CHRONIC OBSTRUCTIVE ASTHMA WITH EXACERBAT Physical Exam Vital Signs: Temp Pulse Resp BP Pulse Ox 98.7 F 117 H 18 101/70 96 02/27/18 07:46 02/27/18 12:48 02/27/18 12:48 02/27/18 07:46 02/27/18 12:48 Intake & Output 02/26/18 02/27/18 02/28/18 06:59 06:59 06:59 Intake Total 2110 1047 168 Output Total 1000 500 Balance 1110 547 168 Weight 71.4 kg 72.4 kg Exam: GENERAL: well-nourished and in no acute distress. Alert and oriented x3 HEAD: Atraumatic, normocephalic. EYES: Pupils equal round and reactive to light, extraocular movements intact, sclera anicteric, conjunctiva are normal. ENT: TMs normal, nares patent, oropharynx clear without exudates. Moist mucous membranes. No oral ulcerations or bleeding gums noted NECK: supple without lymphadenopathy. Trachea is central. No cervical or axillary lymphadenopathy noted. Carotids are 2+, JVD WNL LUNGS: Respiration seems nonlabored, no significant accessory muscle action noted. Breath sounds clear to auscultation bilaterally and equal noted. Scattered wheezes rales or rhonchi noted. No significant dullness noted on percussion. CHEST: Palpation of the chest wall shows no significant chest wall tenderness. Bilateral mastectomy noted. HEART: [place] [employer], No PSH, 1/6 ORIANA aortic area, 1/6 randle systolic murmur mitral area, no rubs, no gallops. ABDOMEN: Soft, no significant tenderness appreciated, normoactive bowel sounds. No guarding, no rebound. No rigidity noted . No masses appreciated. EXTREMITIES: Pedal pulses are 1-2+, no calf tenderness noted. No clubbing or cyanosis. negative pedal edema noted NEUROLOGICAL: No facial asymmetry noted but patient noted to be very debilitated with generally weak. Suspect lower extremity weakness. PSYCH: Normal mood, normal affect. Judgment and insight within normal limits. SKIN: No significant ecchymosis, skin is noted to be warm. MUSCULOSKELETAL EXAM: No significant acute joint swelling noted. Results Laboratory Results: 02/26/18 05:00 02/27/18 16:44 02/27/18 16:44 Sodium 138.9 Potassium 3.4 L Chloride 106 Carbon Dioxide 26 Anion Gap 7 BUN 18 Creatinine 0.72 Est GFR ( Amer) > 60 Est GFR (Non-Af Amer) > 60 Glucose 126 H Calcium 8.4 02/21/18 20:52 Blood Blood Culture - Final NO GROWTH IN 5 DAYS 02/21/18 20:32 Blood Blood Culture - Final NO GROWTH IN 5 DAYS 02/13/18 02/14/18 02/14/18 17:31 21:00 21:00 Creatine Kinase 286 H CK-MB (CK-2) 13.80 H Troponin I < 0.012 < 0.012 02/15/18 02/15/18 02/21/18 04:55 04:55 20:32 Creatine Kinase 162 H 248 H CK-MB (CK-2) 8.94 H Troponin I < 0.012 02/21/18 20:32 Creatine Kinase CK-MB (CK-2) 1.15 Troponin I 0.029 Impressions: Chest/Abdomen CTA 02/18/18 00:00 IMPRESSION: NORMAL CTA OF THE CHEST. NO PULMONARY EMBOLI. Abdomen/Pelvis CT 02/18/18 07:24 IMPRESSION: NO SIGNIFICANT OR ACUTE FINDING IN THE ABDOMEN OR PELVIS ON CT SCAN WITH IV CONTRAST. Chest X-Ray 02/20/18 05:00 IMPRESSION: No significant change. KUB X-Ray 02/23/18 00:00 IMPRESSION: Large amount of stool in the ascending colon and hepatic flexure. Assessment & Plan - Diagnosis (1) Wide-complex tachycardia Is this a current diagnosis for this admission?: Yes (2) Tachycardia Is this a current diagnosis for this admission?: Yes (3) Acute exacerbation of COPD with asthma Is this a current diagnosis for this admission?: Yes (4) COPD with respiratory failure, acute Is this a current diagnosis for this admission?: Yes (5) Hypokalemia due to loss of potassium Is this a current diagnosis for this admission?: Yes (6) Essential hypertension Is this a current diagnosis for this admission?: Yes - Notes Notes: Patient has been noted to have intermittent tachycardia. Most likely related to severe COPD and emphysema along with beta-2 stimulation. Patient also has history of paroxysmal atrial fibrillation or at least was noted to have it while in the unit. At this point, feel that patient might benefit from short- term multaq therapy till she is out of this COPD exacerbation. Multaq might help in maintaining sinus rhythm and also help with tachycardia to some extent. Other option would be to try a low-dose beta-hiral but patient has very severe COPD. Would recommend maintaining electrolytes within normal limits. Patient has multiple other ongoing diagnosis but these are stable. - Time Time with patient: 15-25 minutes - More than 50% of the time spent coordinating care, discussing management plans with involved caregivers. Management plans discussed with involved personnels. Medical decision making was of moderate to high complexity, patient's has multiple comorbidities. Medications reviewed and adjusted accordingly: Yes
[2018-02-27] MEDS: GABAPENTIN 100 MG CAPSULE PO SCH (21:47)
[2018-02-27] MEDS: ALPRAZOLAM 0.25 MG TABLET PO PRN (21:47)
[2018-02-27] MEDS: DRONEDARONE HYDROCHLORIDE 400 MG TABLET PO SCH (21:47)
[2018-02-28] MEDS: IPRATROPIUM BROMIDE 0.02% NEB 0.5 MG/2.5 ML AMPUL NEB SCH ×6 (00:21→19:48)
[2018-02-28] MEDS: LEVALBUTEROL HCL NEB 1.25 MG/3 ML AMPUL NEB SCH ×6 (00:21→19:48)
[2018-02-28] MEDS: DILTIAZEM HCL 90 MG TABLET PO SCH ×4 (00:53→18:25)
[2018-02-28] MEDS: ACETAMINOPHEN 325 MG TABLET PO PRN ×4 (00:54→21:57)
[2018-02-28] MEDS: LANSOPRAZOLE 30 MG TAB.RAP.DR PO SCH (05:29)
[2018-02-28] MEDS ORDERED: POLYETHYLENE GLYCOL 3350 POWDER 17 GM/1 PACKET PO ONE (08:52)
--- NOTE | 2018-02-28 08:52 | PDOC PROGRESS REPORT ---
Subjective Progress Note for:: 02/28/18 Subjective:: Patient eventually moved her bowel since last clinical evaluation. Complain about slight lower abdominal pain. No nausea or vomiting. No chest pain. Breathing remain fair but labored with exertion. No fever or chills. Reason For Visit: WHEEZING,CHRONIC OBSTRUCTIVE ASTHMA WITH EXACERBAT Physical Exam Vital Signs: Temp Pulse Resp BP Pulse Ox 99.0 F 118 H 18 105/67 98 02/28/18 03:50 02/28/18 04:40 02/28/18 04:40 02/28/18 03:50 02/28/18 04:40 Intake & Output 02/27/18 02/28/18 03/01/18 06:59 06:59 06:59 Intake Total 1047 390 Output Total 500 200 Balance 547 190 Weight 72.4 kg 70.8 kg Physical Exam: General appearance: PRESENT: no acute distress, well-developed, well-nourished Head exam: PRESENT: atraumatic, normocephalic Eye exam: PRESENT: conjunctiva pink. Ear exam: PRESENT: normal external ear exam Mouth exam: PRESENT: moist Respiratory exam: PRESENT: decreased breath sounds - at lung bases, rhonchi - minimal end expiratory phase Cardiovascular exam: PRESENT: tachycardia. ABSENT: diastolic murmur, rubs, systolic murmur Vascular exam: ABSENT: pallor GI/Abdominal exam: PRESENT: normal bowel sounds, soft. ABSENT: distended, guarding, mass, organomegaly, rebound, tenderness Extremities exam: ABSENT: pedal edema, bilateral upper extremities lymphedema from her bilateral mastectomies. Musculoskeletal exam: PRESENT: normal inspection Neurological exam: PRESENT: alert, awake, oriented to person, oriented to place , oriented to time, oriented to situation, CN II-XII grossly intact. ABSENT: motor sensory deficit Psychiatric exam: PRESENT: appropriate affect, normal mood. ABSENT: homicidal ideation, suicidal ideation Skin exam: PRESENT: dry, intact, warm. ABSENT: cyanosis, rash Results Laboratory Results: 02/26/18 05:00 02/27/18 16:44 02/27/18 16:44 Sodium 138.9 Potassium 3.4 L Chloride 106 Carbon Dioxide 26 Anion Gap 7 BUN 18 Creatinine 0.72 Est GFR ( Amer) > 60 Est GFR (Non-Af Amer) > 60 Glucose 126 H Calcium 8.4 08/02/14/18 02/14/18 17:31 21:00 21:00 Creatine Kinase 286 H CK-MB (CK-2) 13.80 H Troponin I < 0.012 < 0.012 02/15/18 02/15/18 02/21/18 04:55 04:55 20:32 Creatine Kinase 162 H 248 H CK-MB (CK-2) 8.94 H Troponin I < 0.012 02/21/18 20:32 Creatine Kinase CK-MB (CK-2) 1.15 Troponin I 0.029 Impressions: Chest/Abdomen CTA 02/18/18 00:00 IMPRESSION: NORMAL CTA OF THE CHEST. NO PULMONARY EMBOLI. Abdomen/Pelvis CT 02/18/18 07:24 IMPRESSION: NO SIGNIFICANT OR ACUTE FINDING IN THE ABDOMEN OR PELVIS ON CT SCAN WITH IV CONTRAST. Chest X-Ray 02/20/18 05:00 IMPRESSION: No significant change. KUB X-Ray 02/23/18 00:00 IMPRESSION: Large amount of stool in the ascending colon and hepatic flexure. Assessment & Plan - Diagnosis (1) COPD with respiratory failure, acute Is this a current diagnosis for this admission?: Yes (2) Acute exacerbation of COPD with asthma Is this a current diagnosis for this admission?: Yes (3) Cigarette smoker one half pack a day or less Is this a current diagnosis for this admission?: Yes (4) Essential hypertension Is this a current diagnosis for this admission?: Yes (5) HLD (hyperlipidemia) Qualifiers: Hyperlipidemia type: unspecified Qualified Code(s): E78.5 - Hyperlipidemia , unspecified Is this a current diagnosis for this admission?: Yes (6) CVA, old, hemiparesis Is this a current diagnosis for this admission?: Yes (7) Seasonal allergic rhinitis Qualifiers: Allergic rhinitis trigger: unspecified Qualified Code(s): J30.2 - Other seasonal allergic rhinitis Is this a current diagnosis for this admission?: Yes (8) GERD (gastroesophageal reflux disease) Qualifiers: Esophagitis presence: without esophagitis Qualified Code(s): K21.9 - Gastro -esophageal reflux disease without esophagitis Is this a current diagnosis for this admission?: Yes (9) Depression Qualifiers: Depression Type: unspecified Qualified Code(s): F32.9 - Major depressive disorder, single episode, unspecified Is this a current diagnosis for this admission?: Yes (10) Status post bilateral mastectomy Is this a current diagnosis for this admission?: Yes (11) Yeast cystitis Is this a current diagnosis for this admission?: Yes (12) Hypokalemia due to loss of potassium Is this a current diagnosis for this admission?: Yes Plan: Patient will receive oral potassium supplementation. (13) Constipation by delayed colonic transit Is this a current diagnosis for this admission?: Yes (14) Tachyarrhythmia Is this a current diagnosis for this admission?: Yes - Time Time Spent with patient: 25-34 minutes Medications reviewed and adjusted accordingly: Yes Anticipated discharge: SNF, Acute Rehab Within: Other - Inpatient Certification Based on my medical assessment, after consideration of the patient's comorbidities, presenting symptoms, or acuity I expect that the services needed warrant INPATIENT care.: Yes I certify that my determination is in accordance with my understanding of Medicare's requirements for reasonable and necessary INPATIENT services [42 CFR 412.3e].: Yes Medical Necessity: Need Close Monitoring Due to Risk of Patient Decompensation, Need For IV Fluids, Need For Continuous Telemetry Monitoring, Need for Nebulizer Therapy and Monitoring of Response, Risk of Complication if Not Cared For in Hospital Post Hospital Care: D/C or Transfer Summary - Plan Summary Plan Summary: Continue current medication management. Obtain KUB X ray. Patient changed her SNF preference to [facility].
[2018-02-28] MEDS: FLUTICASONE/SALMETEROL DISKUS 500-50 MCG/DOSE IH SCH ×2 (10:34→21:55)
[2018-02-28] MEDS: TIOTROPIUM BROMIDE DPI 5 CAP/KIT (18 MCG/CAP) IH SCH (10:35)
[2018-02-28] MEDS: LISINOPRIL 10 MG TABLET PO SCH (10:37)
[2018-02-28] MEDS: ANASTROZOLE 1 MG TABLET PO SCH (10:38)
[2018-02-28] MEDS: FUROSEMIDE 20 MG TABLET PO SCH (10:38)
[2018-02-28] MEDS: DRONEDARONE HYDROCHLORIDE 400 MG TABLET PO SCH ×2 (10:38→21:56)
[2018-02-28] MEDS: NORMAL SALINE 1000 ML 1,000 ML IV PRN (10:40)
[2018-02-28] MEDS: ENOXAPARIN SODIUM INJ 40 MG/0.4 ML DISP.SYRIN SUBCUT SCH (11:01)
[2018-02-28] MEDS: NICOTINE 14 MG/24 HR PATCH.TD24 TD SCH (11:02)
[2018-02-28] MEDS: METHYLPREDNISOLONE INJ 40 MG/1 ML SDV IV SCH (11:03)
[2018-02-28] MEDS: CEFTRIAXONE SODIUM 1,000 MG in NORMAL SALINE 50 ML IV SCH (11:09)
[2018-02-28 12:37] LABS: HEMATOCRIT 33.2 % (36.0-47.0); MEAN CORPUSCULAR HEMOGLOBIN 32.8 pg (27.0-33.4); MEAN CORPUSCULAR VOLUME 99 fl (80-97); PLATELET COUNT 165 10^3/uL (150-450); RED BLOOD COUNT 3.34 10^6/uL (3.72-5.28); RED CELL DISTRIBUTION WIDTH 13.2 % (11.5-14.0); WHITE BLOOD COUNT 15.2 10^3/uL (4.0-10.5)
[2018-02-28 12:55] LABS: ANION GAP 9 (5-19); BLOOD UREA NITROGEN 22 mg/dL (7-20); CALCIUM 8.2 mg/dL (8.4-10.2); CARBON DIOXIDE 24 mmol/L (22-30); CHLORIDE 107 mmol/L (98-107); GLUCOSE 126 mg/dL (75-110); SODIUM 139.6 mmol/L (137-145)
[2018-02-28 13:01] LABS: ABSOLUTE LYMPHOCYTES# (MANUAL) 0.2 10^3/uL (0.5-4.7); ABSOLUTE MONOCYTES # (MANUAL) 0.3 10^3/uL (0.1-1.4); ABSOLUTE NEUTROPHILS# (MANUAL) 14.7 10^3/uL (1.7-8.2); BASOPHILS % (MANUAL) 0 % (0-2); EOSINOPHILS % (MANUAL) 0 % (0-6); LYMPHOCYTES % (MANUAL) 1 % (13-45); MONOCYTES % (MANUAL) 2 % (3-13); POLYCHROMASIA 1+; POTASSIUM 2.8 mmol/L (3.6-5.0); SEGMENTED NEUTROPHILS % (MAN) 97 % (42-78); TOTAL CELLS COUNTED 100; TOXIC GRANULATION 1+
[2018-02-28 13:02] LABS: OVALOCYTES 1+; PLATELET COMMENT ADEQUATE; POIKILOCYTOSIS 1+; SCHISTOCYTES 1+; TARGET CELLS 1+
[2018-02-28] MEDS: POTASSIUM CHLORIDE 10 MEQ CAPSULE.ER PO SCH ×3 (14:07→18:25)
--- NOTE | 2018-02-28 21:45 | PROGRESS NOTE E ---
Progress Note NAME: ARIELLA JUAREZ : 1965 AGE: 52Y DATE: 02/28/2018 ROOM: 323 SUBJECTIVE: The patient is a 52-year-old -[place] female, who came in with severe COPD exacerbation and went into congestive heart failure requiring invasive mechanical ventilation, s/p extubation. Currently the patient is feeling better. Denies any increased cough or purulent sputum production or hemoptysis. White blood cell count on CBC has been going up from 10,000 on 02/20/2018 to 19,800 on 02/26/2018. The patient is currently on Solu-Medrol 20 mg IV q.12 hours and also taking ceftriaxone 1 gram daily. The patient is taking Advair 500 DiskHaler 1 puff daily and Spiriva inhaler 1 capsule daily. 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 She had breast cancer in the past, status post mastectomy left side. OBJECTIVE: GENERAL: The patient is awake, alert, oriented x3, afebrile, not in apparent respiratory distress. VITAL SIGNS: Temperature of 97.6 with a T-max of 99.1, pulse rate is 123, blood pressure is 120/75, respiratory rate 16, saturation is 100% on 2 liters nasal cannula. EYES: No jaundice or pallor. EARS, NOSE, AND THROAT: No ear drainage. No nasal discharge. CHEST AND LUNGS: No wheezing, no rhonchi, no coarse crackles. CARDIOVASCULAR: S1, S2 distinct. Normal rate, regular rhythm. ABDOMEN: Flabby, positive bowel sounds, soft, nondistended, nontender. EXTREMITIES: No joint swelling, no cellulitis. LABORATORY DATA: CBC done today shows a white count of 15,200; hemoglobin is 11; hematocrit is 33.2; platelet count is 165. Chemistry done today showed sodium is 139, potassium went down to 2.8, chloride 107, CO2 is 24, BUN is 32, creatinine 0.71, glucose 126, calcium 8.2. ASSESSMENT: 1. SEVERE COPD. CURRENTLY STABLE NOT IN ACUTE EXACERBATION. 2. STATUS POST ACUTE RESPIRATORY FAILURE REQUIRING INVASIVE MECHANICAL VENTILATION. 3. SEVERE LEUKOCYTOSIS, MOST LIKELY DUE TO STEROIDS OR IV SOLU-MEDROL. PLAN/RECOMMENDATION: 1. Continue Advair DiskHaler 500/50 one puff daily and Spiriva inhaler. 2. We will discontinue the IV Solu-Medrol, start patient on prednisone 10 mg daily. We will start it tonight. 3. Consider using doxycycline or Levaquin as antibiotic. DICTATING PHYSICIAN: ERICA REAL MD,ALO,MPH [id number] [id number] PHY#: [id number] ID: [id number] JOB#: [id number] ACCT: [id number] cc: > MTDD
[2018-02-28] MEDS: PREDNISONE 10 MG TABLET PO SCH (21:55)
[2018-02-28] MEDS: POTASSIUM CHLORIDE 20 MEQ/15 ML UDCUP PO SCH (21:55)
[2018-02-28] MEDS: ALPRAZOLAM 0.25 MG TABLET PO PRN (21:56)
[2018-02-28] MEDS: GABAPENTIN 100 MG CAPSULE PO SCH (21:57)
[2018-02-28 22:42] LABS: ANION GAP 5 (5-19); BLOOD UREA NITROGEN 23 mg/dL (7-20); CALCIUM 8.1 mg/dL (8.4-10.2); CARBON DIOXIDE 25 mmol/L (22-30); CHLORIDE 109 mmol/L (98-107); GLUCOSE 132 mg/dL (75-110); SODIUM 138.9 mmol/L (137-145)
[2018-02-28 22:53] LABS: POTASSIUM 3.7 mmol/L (3.6-5.0)
[2018-03-01] MEDS: LEVALBUTEROL HCL NEB 1.25 MG/3 ML AMPUL NEB SCH ×6 (00:48→19:48)
[2018-03-01] MEDS: IPRATROPIUM BROMIDE 0.02% NEB 0.5 MG/2.5 ML AMPUL NEB SCH ×6 (00:48→19:48)
[2018-03-01] MEDS: DILTIAZEM HCL 90 MG TABLET PO SCH ×4 (01:25→17:17)
[2018-03-01] MEDS: ACETAMINOPHEN 325 MG TABLET PO PRN ×3 (02:48→20:10)
[2018-03-01 09:30] LABS: BLOOD UREA NITROGEN 19 mg/dL (7-20); CALCIUM 8.2 mg/dL (8.4-10.2); GLUCOSE 94 mg/dL (75-110); POTASSIUM 4.3 mmol/L (3.6-5.0)
[2018-03-01 09:31] LABS: CARBON DIOXIDE 26 mmol/L (22-30); CHLORIDE 109 mmol/L (98-107); SODIUM 139.1 mmol/L (137-145)
[2018-03-01 10:40] LABS: ANION GAP 4 (5-19)
[2018-03-01] MEDS: LANSOPRAZOLE 30 MG TAB.RAP.DR PO SCH (11:28)
[2018-03-01] MEDS: NICOTINE 14 MG/24 HR PATCH.TD24 TD SCH (11:29)
[2018-03-01] MEDS: LISINOPRIL 10 MG TABLET PO SCH (11:29)
[2018-03-01] MEDS: POTASSIUM CHLORIDE 20 MEQ/15 ML UDCUP PO SCH (11:29)
[2018-03-01] MEDS: FLUTICASONE/SALMETEROL DISKUS 500-50 MCG/DOSE IH SCH ×2 (11:30→22:48)
[2018-03-01] MEDS: DRONEDARONE HYDROCHLORIDE 400 MG TABLET PO SCH ×2 (11:30→22:50)
[2018-03-01] MEDS: PREDNISONE 10 MG TABLET PO SCH (11:30)
[2018-03-01] MEDS: FUROSEMIDE 20 MG TABLET PO SCH (11:30)
[2018-03-01] MEDS: ANASTROZOLE 1 MG TABLET PO SCH (11:31)
[2018-03-01] MEDS: ROFLUMILAST 500 MCG TABLET PO SCH (11:31)
[2018-03-01] MEDS: TIOTROPIUM BROMIDE DPI 5 CAP/KIT (18 MCG/CAP) IH SCH (11:32)
[2018-03-01] MEDS: ENOXAPARIN SODIUM INJ 40 MG/0.4 ML DISP.SYRIN SUBCUT SCH (11:36)
[2018-03-01] MEDS: CEFTRIAXONE SODIUM 1,000 MG in NORMAL SALINE 50 ML IV SCH (11:40)
[2018-03-01] MEDS: ONDANSETRON HCL INJ/PF 4 MG/2 ML SDV IV PRN (17:21)
--- NOTE | 2018-03-01 18:07 | PDOC PROGRESS REPORT ---
Subjective Progress Note for:: 03/01/18 Subjective:: Patient continue to move bowel satisfactorily. No nausea or vomiting. No chest pain. Breathing remain fair but labored with exertion. No fever or chills. Reason For Visit: WHEEZING,CHRONIC OBSTRUCTIVE ASTHMA WITH EXACERBAT Physical Exam Vital Signs: Temp Pulse Resp BP Pulse Ox 99.1 F 113 H 16 97/47 L 97 03/01/18 15:41 03/01/18 15:41 03/01/18 15:41 03/01/18 15:41 03/01/18 15:41 Intake & Output 02/28/18 03/01/18 03/02/18 06:59 06:59 06:59 Intake Total 390 1368 168 Output Total 200 Balance 190 1368 168 Weight 70.8 kg Physical Exam: General appearance: PRESENT: no acute distress, well-developed, well-nourished Head exam: PRESENT: atraumatic, normocephalic Eye exam: PRESENT: conjunctiva pink. Ear exam: PRESENT: normal external ear exam Mouth exam: PRESENT: moist Respiratory exam: PRESENT: decreased breath sounds - at lung bases, rhonchi - minimal end expiratory phase Cardiovascular exam: PRESENT: tachycardia. ABSENT: diastolic murmur, rubs, systolic murmur Vascular exam: ABSENT: pallor GI/Abdominal exam: PRESENT: normal bowel sounds, soft. ABSENT: distended, guarding, mass, organomegaly, rebound, tenderness Extremities exam: ABSENT: pedal edema, bilateral upper extremities lymphedema from her bilateral mastectomies. Compression stockings in use. Musculoskeletal exam: PRESENT: normal inspection Neurological exam: PRESENT: alert, awake, oriented to person, oriented to place , oriented to time, oriented to situation, CN II-XII grossly intact. ABSENT: motor sensory deficit Psychiatric exam: PRESENT: appropriate affect, normal mood. ABSENT: homicidal ideation, suicidal ideation Skin exam: PRESENT: dry, intact, warm. ABSENT: cyanosis, rash Results Laboratory Results: 02/28/18 12:00 03/01/18 06:05 02/28/18 02/28/18 03/01/18 21:55 21:55 06:05 Sodium 138.9 139.1 Potassium 3.7 4.3 Chloride 109 H 109 H Carbon Dioxide 25 26 Anion Gap 5 4 L BUN 23 H 19 Creatinine 0.62 0.57 Est GFR ( Amer) > 60 > 60 Est GFR (Non-Af Amer) > 60 > 60 Glucose 132 H 94 Calcium 8.1 L 8.2 L TSH 1.06 02/13/18 02/14/18 02/14/18 17:31 21:00 21:00 Creatine Kinase 286 H CK-MB (CK-2) 13.80 H Troponin I < 0.012 < 0.012 02/15/18 02/15/18 02/21/18 04:55 04:55 20:32 Creatine Kinase 162 H 248 H CK-MB (CK-2) 8.94 H Troponin I < 0.012 02/21/18 20:32 Creatine Kinase CK-MB (CK-2) 1.15 Troponin I 0.029 Impressions: Chest/Abdomen CTA 02/18/18 00:00 IMPRESSION: NORMAL CTA OF THE CHEST. NO PULMONARY EMBOLI. Abdomen/Pelvis CT 02/18/18 07:24 IMPRESSION: NO SIGNIFICANT OR ACUTE FINDING IN THE ABDOMEN OR PELVIS ON CT SCAN WITH IV CONTRAST. Chest X-Ray 02/20/18 05:00 IMPRESSION: No significant change. KUB X-Ray 02/23/18 00:00 IMPRESSION: Large amount of stool in the ascending colon and hepatic flexure. Assessment & Plan - Diagnosis (1) COPD with respiratory failure, acute Is this a current diagnosis for this admission?: Yes (2) Acute exacerbation of COPD with asthma Is this a current diagnosis for this admission?: Yes (3) Cigarette smoker one half pack a day or less Is this a current diagnosis for this admission?: Yes (4) Essential hypertension Is this a current diagnosis for this admission?: Yes (5) HLD (hyperlipidemia) Qualifiers: Hyperlipidemia type: unspecified Qualified Code(s): E78.5 - Hyperlipidemia , unspecified Is this a current diagnosis for this admission?: Yes (6) CVA, old, hemiparesis Is this a current diagnosis for this admission?: Yes (7) Seasonal allergic rhinitis Qualifiers: Allergic rhinitis trigger: unspecified Qualified Code(s): J30.2 - Other seasonal allergic rhinitis Is this a current diagnosis for this admission?: Yes (8) GERD (gastroesophageal reflux disease) Qualifiers: Esophagitis presence: without esophagitis Qualified Code(s): K21.9 - Gastro -esophageal reflux disease without esophagitis Is this a current diagnosis for this admission?: Yes (9) Depression Qualifiers: Depression Type: unspecified Qualified Code(s): F32.9 - Major depressive disorder, single episode, unspecified Is this a current diagnosis for this admission?: Yes (10) Status post bilateral mastectomy Is this a current diagnosis for this admission?: Yes (11) Yeast cystitis Is this a current diagnosis for this admission?: Yes (12) Hypokalemia due to loss of potassium Is this a current diagnosis for this admission?: Yes (13) Constipation by delayed colonic transit Is this a current diagnosis for this admission?: Yes (14) Tachyarrhythmia Is this a current diagnosis for this admission?: Yes - Time Time Spent with patient: 25-34 minutes Medications reviewed and adjusted accordingly: Yes Anticipated discharge: SNF, Acute Rehab Within: within 24 hours - Inpatient Certification Based on my medical assessment, after consideration of the patient's comorbidities, presenting symptoms, or acuity I expect that the services needed warrant INPATIENT care.: Yes I certify that my determination is in accordance with my understanding of Medicare's requirements for reasonable and necessary INPATIENT services [42 CFR 412.3e].: Yes Medical Necessity: Need Close Monitoring Due to Risk of Patient Decompensation, Need For IV Fluids, Need For Continuous Telemetry Monitoring, Need for Nebulizer Therapy and Monitoring of Response, Need for IV Antibiotics, Risk of Complication if Not Cared For in Hospital Post Hospital Care: D/C or Transfer Summary - Plan Summary Plan Summary: Continue current medication management. D/C IV Solu Medrol. Start on oral Methylprednisolone 4 mg po q8 hours with plan to taper off gradually. Follow up on development planner input with regard to transfer to [facility] for short term rehabilitation.
[2018-03-01] MEDS: METHYLPREDNISOLONE 4 MG TABLET PO SCH (22:49)
[2018-03-01] MEDS: GABAPENTIN 100 MG CAPSULE PO SCH (22:49)
[2018-03-01] MEDS: ALPRAZOLAM 0.25 MG TABLET PO PRN (22:50)
--- NOTE | 2018-03-01 23:13 | PDOC PROGRESS REPORT ---
Subjective Progress Note for:: 03/01/18 Subjective:: Patient was noted to be tachycardic and short of breath however she had just completed physical therapy. Pt is denying any chest arm or neck discomfort. Patient denying any PND, orthopnea. Patient denied any sustained palpitations, dizziness, syncope, near syncope. Patient noted to have fever. Patient denying any other significant discomfort. Patient is maintaining tachycardic rhythm with seems sinus tachycardia Review of systems: Rest review of systems negative. Medications: Medications have been reviewed. Medications reviewed. Reason For Visit: WHEEZING,CHRONIC OBSTRUCTIVE ASTHMA WITH EXACERBAT Physical Exam Vital Signs: Temp Pulse Resp BP Pulse Ox 99.2 F 112 H 18 103/64 100 03/01/18 19:25 03/01/18 20:00 03/01/18 20:00 03/01/18 19:25 03/01/18 20:00 Intake & Output 02/28/18 03/01/18 03/02/18 06:59 06:59 06:59 Intake Total 390 1368 668 Output Total 200 Balance 190 1368 668 Weight 70.8 kg Exam: GENERAL: well-nourished and in no acute distress. Alert and oriented x3 HEAD: Atraumatic, normocephalic. EYES: Pupils equal round and reactive to light, extraocular movements intact, sclera anicteric, conjunctiva are normal. ENT: TMs normal, nares patent, oropharynx clear without exudates. Moist mucous membranes. No oral ulcerations or bleeding gums noted NECK: supple without lymphadenopathy. Trachea is central. No cervical or axillary lymphadenopathy noted. Carotids are 2+, JVD WNL LUNGS: Respiration seems nonlabored, no significant accessory muscle action noted. Breath sounds clear to auscultation bilaterally and equal noted. Bilateral scattered wheezes rales or rhonchi noted. No significant dullness noted on percussion. CHEST: Palpation of the chest wall shows no significant chest wall tenderness. Bilateral mastectomy noted. 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 ABDOMEN: Soft, no significant tenderness appreciated, normoactive bowel sounds. No guarding, no rebound. No rigidity noted . No masses appreciated. EXTREMITIES: Pedal pulses are 1-2+, no calf tenderness noted. No clubbing or cyanosis. negative pedal edema noted NEUROLOGICAL: Focused neurological exam showed no facial asymmetry. Patient noted to be mostly in bed. A full neurological exam was not performed. PSYCH: Normal mood, normal affect. Judgment and insight within normal limits. SKIN: No significant ecchymosis, skin is noted to be warm. MUSCULOSKELETAL EXAM: No significant acute joint swelling noted. Results Laboratory Results: 02/28/18 12:00 03/01/18 06:05 02/28/18 03/01/18 21:55 06:05 Sodium 139.1 Potassium 4.3 Chloride 109 H Carbon Dioxide 26 Anion Gap 4 L BUN 19 Creatinine 0.57 Est GFR ( Amer) > 60 Est GFR (Non-Af Amer) > 60 Glucose 94 Calcium 8.2 L TSH 1.06 02/13/18 02/14/18 02/14/18 17:31 21:00 21:00 Creatine Kinase 286 H CK-MB (CK-2) 13.80 H Troponin I < 0.012 < 0.012 02/15/18 02/15/18 02/21/18 04:55 04:55 20:32 Creatine Kinase 162 H 248 H CK-MB (CK-2) 8.94 H Troponin I < 0.012 02/21/18 20:32 Creatine Kinase CK-MB (CK-2) 1.15 Troponin I 0.029 Impressions: Chest/Abdomen CTA 02/18/18 00:00 IMPRESSION: NORMAL CTA OF THE CHEST. NO PULMONARY EMBOLI. Abdomen/Pelvis CT 02/18/18 07:24 IMPRESSION: NO SIGNIFICANT OR ACUTE FINDING IN THE ABDOMEN OR PELVIS ON CT SCAN WITH IV CONTRAST. Chest X-Ray 02/20/18 05:00 IMPRESSION: No significant change. KUB X-Ray 02/23/18 00:00 IMPRESSION: Large amount of stool in the ascending colon and hepatic flexure. Assessment & Plan - Diagnosis (1) Wide-complex tachycardia Is this a current diagnosis for this admission?: Yes (2) Tachycardia Is this a current diagnosis for this admission?: Yes (3) Acute exacerbation of COPD with asthma Is this a current diagnosis for this admission?: Yes (4) COPD with respiratory failure, acute Is this a current diagnosis for this admission?: Yes (5) Hypokalemia due to loss of potassium Is this a current diagnosis for this admission?: Yes (6) Essential hypertension Is this a current diagnosis for this admission?: Yes - Notes Notes: Patient continues to have sinus tachycardia with increased heart rate. However intermittently is noted to be less than 100. Tachycardia mostly related to significant beta-2 stimulation and possibly some inappropriate sinus tachycardia however am afraid to try low-dose beta-hiral unless her pulmonary condition improves and license inspector recommends it. This would be the next step. Will go ahead and add digoxin at low dose to see if it will help. This is because patient does have some RV dysfunction. Hypertension: Currently is stable. Continue current regimen. COPD: Patient seems to have severe COPD with multiple admissions and intubations. Patient currently on Cardizem. Patient also on low-dose digoxin. Respiratory failure: Patient is status post extubation. - Time Time with patient: 15-25 minutes - More than 50% of the time spent coordinating care, discussing management plans with involved caregivers. Management plans discussed with involved personnels. Medical decision making was of moderate to high complexity, patient's has multiple comorbidities. Medications reviewed and adjusted accordingly: Yes
[2018-03-02] MEDS: IPRATROPIUM BROMIDE 0.02% NEB 0.5 MG/2.5 ML AMPUL NEB SCH ×5 (00:31→16:14)
[2018-03-02] MEDS: LEVALBUTEROL HCL NEB 1.25 MG/3 ML AMPUL NEB SCH ×5 (00:31→16:14)
--- NOTE | 2018-03-02 01:00 | PROGRESS NOTE E ---
Progress Note NAME: ARIELLA JUAREZ : 1965 AGE: 52Y DATE: 03/01/2018 ROOM: 323 SUBJECTIVE: The patient is a 52-year-old -[place] female who came in with acute respiratory failure requiring invasive mechanical ventilation. The patient was extubated about ago, appeared to be doing okay. Has scanty whitish-yellow phlegm. No fever over the last 24 hours. No vomiting, no diarrhea. OBJECTIVE: GENERAL: The patient is awake, alert, coherent, oriented x3, afebrile, not in apparent respiratory distress. VITAL SIGNS: Temperature of 99.2 with a T-max of 99.2, pulse rate is 118, blood pressure is 103/64, respiratory rate 18, saturation is 96% on 2 liters nasal cannula. EYES: No jaundice or pallor. EARS, NOSE, AND THROAT: No ear drainage. No nasal discharge. CHEST AND LUNGS: No wheezing, no rhonchi, no coarse crackles. CARDIOVASCULAR: S1, S2 distinct. Normal rate, regular rhythm. ABDOMEN: Flabby, positive bowel sounds, soft, nondistended, nontender. EXTREMITIES: No joint swelling, no cellulitis. LABORATORY DATA: CBC done yesterday shows a white count down to 15.2, hemoglobin is 11, hematocrit is 33.2, platelet count is 165. Chemistry done today showed sodium is 139, potassium is 4.3, chloride 109, CO2 is 36, BUN is 19, creatinine 0.57, glucose 94, calcium 8.2, magnesium is 2. ASSESSMENT: 1. COPD. CURRENTLY STABLE NOT IN ACUTE BRONCHOSPASM. 2. STATUS POST ACUTE RESPIRATORY FAILURE REQUIRING INVASIVE MECHANICAL VENTILATION. 3. PNEUMONIA. SPUTUM CULTURE POSITIVE FOR ENTEROBACTER CLOACAE. PLAN/RECOMMENDATION: 1. We will continue Spiriva inhaler 1 puff daily, Advair 500/50 DiskHaler one puff b.i.d., and nebulizer treatment every 6 hours as needed. 2. Recommend slowly tapering the steroid dose. 3. Continue the Prevacid 30 mg daily. 4. Recommend pulmonary follow up in 2-3 weeks following hospital discharge. DICTATING PHYSICIAN: ERICA REAL M.D. [id number] PHY#: [id number] ID: [id number] JOB#: [id number] ACCT: [id number] cc: > MTDD
[2018-03-02] MEDS: ONDANSETRON HCL INJ/PF 4 MG/2 ML SDV IV PRN (01:52)
[2018-03-02] MEDS: DILTIAZEM HCL 90 MG TABLET PO SCH ×4 (01:55→17:47)
[2018-03-02 05:16] LABS: HEMATOCRIT 29.3 % (36.0-47.0); HEMOGLOBIN 9.7 g/dL (12.0-15.5); MEAN CORPUSCULAR HEMOGLOBIN 33.1 pg (27.0-33.4); MEAN CORPUSCULAR VOLUME 100 fl (80-97); PLATELET COUNT 129 10^3/uL (150-450); RED BLOOD COUNT 2.92 10^6/uL (3.72-5.28); RED CELL DISTRIBUTION WIDTH 13.4 % (11.5-14.0); WHITE BLOOD COUNT 12.3 10^3/uL (4.0-10.5)
[2018-03-02] MEDS: METHYLPREDNISOLONE 4 MG TABLET PO SCH ×2 (05:43→13:31)
[2018-03-02] MEDS: LANSOPRAZOLE 30 MG TAB.RAP.DR PO SCH (05:43)
[2018-03-02 05:47] LABS: ABSOLUTE LYMPHOCYTES# (MANUAL) 0.4 10^3/uL (0.5-4.7); ABSOLUTE MONOCYTES # (MANUAL) 0.2 10^3/uL (0.1-1.4); ABSOLUTE NEUTROPHILS# (MANUAL) 11.7 10^3/uL (1.7-8.2); BASOPHILS % (MANUAL) 0 % (0-2); EOSINOPHILS % (MANUAL) 0 % (0-6); LYMPHOCYTES % (MANUAL) 3 % (13-45); MONOCYTES % (MANUAL) 2 % (3-13); NUCLEATED RED BLOOD CELLS 1 /100 WBC (0); PLATELET COMMENT DECREASED; RBC MORPHOLOGY COMMENT NORMO-CYTIC/CHROMIC; SEGMENTED NEUTROPHILS % (MAN) 95 % (42-78); TOTAL CELLS COUNTED 100; TOXIC GRANULATION SLIGHT; TOXIC VACUOLATION PRESENT
[2018-03-02] MEDS: ROFLUMILAST 500 MCG TABLET PO SCH (09:42)
[2018-03-02] MEDS: ANASTROZOLE 1 MG TABLET PO SCH (09:42)
[2018-03-02] MEDS: TIOTROPIUM BROMIDE DPI 5 CAP/KIT (18 MCG/CAP) IH SCH (09:42)
[2018-03-02] MEDS: FLUTICASONE/SALMETEROL DISKUS 500-50 MCG/DOSE IH SCH (09:43)
[2018-03-02] MEDS: ENOXAPARIN SODIUM INJ 40 MG/0.4 ML DISP.SYRIN SUBCUT SCH (09:48)
[2018-03-02] MEDS: FUROSEMIDE 20 MG TABLET PO SCH (09:49)
[2018-03-02] MEDS: NICOTINE 14 MG/24 HR PATCH.TD24 TD SCH (09:49)
[2018-03-02] MEDS: LISINOPRIL 10 MG TABLET PO SCH (09:50)
[2018-03-02] MEDS: DRONEDARONE HYDROCHLORIDE 400 MG TABLET PO SCH (09:50)
[2018-03-02] MEDS: POTASSIUM CHLORIDE 20 MEQ/15 ML UDCUP PO SCH (09:50)
[2018-03-02] MEDS: CEFTRIAXONE SODIUM 1,000 MG in NORMAL SALINE 50 ML IV SCH (09:51)
[2018-03-02] MEDS ORDERED: DIGOXIN 0.125 MG TABLET PO SCH (10:00)
--- NOTE | 2018-03-02 14:52 | PDOC TRANSFER SUMMARY ---
General - Admit/Disc Date/PCP Admission Date/Primary Care Provider: 02/11/18 09:40 LUKASZMARGO ORNELAS Discharge Date: 03/02/18 - Discharge Diagnosis (1) COPD with respiratory failure, acute Is this a current diagnosis for this admission?: Yes (2) Acute exacerbation of COPD with asthma Is this a current diagnosis for this admission?: Yes (3) Cigarette smoker one half pack a day or less Is this a current diagnosis for this admission?: Yes (4) Essential hypertension Is this a current diagnosis for this admission?: Yes (5) HLD (hyperlipidemia) Is this a current diagnosis for this admission?: Yes (6) CVA, old, hemiparesis Is this a current diagnosis for this admission?: Yes (7) Seasonal allergic rhinitis Is this a current diagnosis for this admission?: Yes (8) GERD (gastroesophageal reflux disease) Is this a current diagnosis for this admission?: Yes (9) Depression Is this a current diagnosis for this admission?: Yes (10) Status post bilateral mastectomy Is this a current diagnosis for this admission?: Yes (11) Yeast cystitis Is this a current diagnosis for this admission?: Yes (12) Hypokalemia due to loss of potassium Is this a current diagnosis for this admission?: Yes (13) Constipation by delayed colonic transit Is this a current diagnosis for this admission?: Yes (14) Tachyarrhythmia Is this a current diagnosis for this admission?: Yes - Additional Information Resuscitation Status: Full Code Discharge Diet: Cardiac Discharge Activity: Activity As Tolerated, Slowly Increase Activity, Supervised Activity Prescriptions: Digoxin [Lanoxin 0.125 mg Tablet] 0.125 mg PO DAILY #30 tablet Diltiazem HCl [Cardizem Cd 180 mg Capsule] 1 cap.sr PO Q12 #60 cap.sr Dronedarone Hydrochloride [Multaq 400 mg Tablet] 400 mg PO Q12 #60 tablet Furosemide [Lasix 20 mg Tablet] 20 mg PO DAILY #30 tablet Gabapentin [Neurontin 100 mg Capsule] 100 mg PO QHS #30 capsule Levalbuterol HCl [Xopenex Neb 1.25 mg/3 ml Ampul] 1.25 mg NEB RTQ4 #120 vial.neb Methylprednisolone [Medrol 4 mg Tablet] 4 mg PO ASDIR PRN #14 tablet PRN Reason: Nicotine [Nicoderm 14 mg/24 Hr Transdermal Patch] 1 each TD DAILY #30 patch.td24 Potassium Chloride 20 meq PO DAILY #30 tablet.er Home Medications: Albuterol Sulfate [Proair HFA Inhalation Aerosol 8.5 gm MDI] 1 puff IH Q4HP PRN 02/11/18 Anastrozole [Arimidex 1 mg Tablet] 1 mg PO DAILY 02/11/18 Azelastine HCl 2 spray NASL BID 02/11/18 Benzonatate [Tessalon Perles 100 mg Capsule] 200 mg PO TIDP PRN 02/11/18 Budesonide/Formoterol Fumarate [Symbicort 160-4.5 Mcg Inhaler] 2 puff IH Q12 Lansoprazole [Prevacid] 30 mg PO DAILY 02/11/18 Linaclotide [Linzess] 14 mcg PO DAILY 02/11/18 Lisinopril [Prinivil] 20 mg PO DAILY 02/11/18 Megestrol Acetate 20 ml PO DAILY 02/11/18 Montelukast Sodium [Singulair 10 mg Tablet] 10 mg PO QHS 02/11/18 Rivaroxaban [Xarelto] 20 mg PO WSUPPER 02/11/18 Tiotropium Marshall [Spiriva Handihaler 5 Cap/Kit (18 Mcg/Cap)] 1 puff IH DAILY 02/11/18 Digoxin [Lanoxin 0.125 mg Tablet] 0.125 mg PO DAILY #30 tablet 03/02/18 Diltiazem HCl [Cardizem Cd 180 mg Capsule] 1 cap.sr PO Q12 #60 cap.sr 03/02/18 Dronedarone Hydrochloride [Multaq 400 mg Tablet] 400 mg PO Q12 #60 tablet Furosemide [Lasix 20 mg Tablet] 20 mg PO DAILY #30 tablet 03/02/18 Gabapentin [Neurontin 100 mg Capsule] 100 mg PO QHS #30 capsule 03/02/18 Levalbuterol HCl [Xopenex Neb 1.25 mg/3 ml Ampul] 1.25 mg NEB RTQ4 #120 vial.neb 03/02/18 Methylprednisolone [Medrol 4 mg Tablet] 4 mg PO ASDIR PRN #14 tablet 03/02/18 Nicotine [Nicoderm 14 mg/24 Hr Transdermal Patch] 1 each TD DAILY #30 patch.td24 03/02/18 Potassium Chloride 20 meq PO DAILY #30 tablet.er 09/07/18 History of Present Illness Admission Date/PCP: 02/11/18 09:40 LUKASZ OSUNKOYA Patient complains of: Difficulty with breathing History of Present Illness: ARIELLA JUAREZ is a 52 year old female known to my practice who presented to the ED with listed complain. She was recently seen at the office for similar complain and diagnosed with acute bronchitis, started on Augmentin and Methylprednisolone tapering regimen. She claimed compliance with medications but due to worsening difficulty with breathing presented to ED. She continue to experience minimally productive coughing, wheezing and shortness of breath with minimal exertion. She denied any fever or chills. No sinus or nasal congestion. She denied ongoing smoking but usually smoke about 1/2 PPD. No associated chest pain but reported that her heart was racing. Her morbidities include Hypertension, Congestive Heart Failure, Hyperlipidemia, Asthma, COPD, Stroke with minimal left sided paresis, Bilateral breast cancer s/p bilateral mastectomy, Gastroesophageal Reflux Disease, Hiatal Hernia, Nicotine dependence and depression. She was advised hospitalization due to her minimal response of outpatient management and ED management with bronchodilators. Hospital Course Hospital Course: Patient was initially managed with BiPAP support, supplemental oxygen, bronchodilators, IV steroid, IV fluid and antibiotic therapy. Despite these intervention her symptoms persist and there was associated increase work of breathing. She was seen by Dr. Figueroa, software development specialist, due to worsening symptoms despite treatment optimization and increase work of breathing. She was eventually transferred to ICU and intubated for acute respiratory failure. Due to persistent tachyarrhythmia, she was seen by Dr. Lamb, heavy equipment plumbing supervisor. Her Cardizem therapy was maximized and Multaq as well as Digoxin were added to her management medications. Although, she denied any chest pain, her tachycardia persist despite the triple medication therapy for her arrhythmia. Her hospital stay was further complicated by period of severe constipation due to imposition of opiate therapy while she was intubated for pain control. She was treated with several doses of Miralax, Dulcolax and Linzess. She is currently moving her bowel satisfactorily and more towards diarrhea. She is currently off all constipation management medications. She will be discharged to [facility] for short term rehabilitation. She will benefit from post rehabilitation home health agency service to include visiting nurse, personal investment adviser and physical therapy through reinstatement of her preadmission service with [facility]. She will need post acute care follow up with Dr Figueroa , Dr Lamb and myself upon discharge from [facility]. Please call offices for appointment before discharge from [facility]. Physical Exam Vital Signs: Temp Pulse Resp BP Pulse Ox 99.7 F 106 H 16 111/62 100 03/02/18 03:54 03/02/18 03:54 03/02/18 03:54 03/02/18 08:19 03/02/18 03:54 Intake & Output 03/01/18 03/02/18 03/03/18 06:59 06:59 06:59 Intake Total 1368 668 Balance 1368 668 Weight 69 kg General appearance: PRESENT: no acute distress, well-developed, well-nourished Head exam: PRESENT: atraumatic, normocephalic Eye exam: PRESENT: conjunctiva pink. Ear exam: PRESENT: normal external ear exam Mouth exam: PRESENT: moist Respiratory exam: PRESENT: decreased breath sounds ABSENT: rhonchi, wheezing Cardiovascular exam: PRESENT: tachycardia. ABSENT: diastolic murmur, rubs, systolic murmur Vascular exam: ABSENT: pallor GI/Abdominal exam: PRESENT: normal bowel sounds, soft. ABSENT: distended, guarding, mass, organomegaly, rebound, tenderness Extremities exam: ABSENT: pedal edema, bilateral upper extremities lymphedema from her bilateral mastectomies. Compression stockings in use. Musculoskeletal exam: PRESENT: normal inspection Neurological exam: PRESENT: alert, awake, oriented to person, oriented to place , oriented to time, oriented to situation, CN II-XII grossly intact. ABSENT: motor sensory deficit Psychiatric exam: PRESENT: appropriate affect, normal mood. ABSENT: homicidal ideation, suicidal ideation Skin exam: PRESENT: dry, intact, warm. ABSENT: cyanosis, rash Results Laboratory Results: 03/02/18 04:50 03/01/18 06:05 03/01/18 03/02/18 06:05 04:50 WBC 12.3 H RBC 2.92 L Hgb 9.7 L Hct 29.3 L MCV 100 H MCH 33.1 MCHC 33.0 RDW 13.4 Plt Count 129 L Seg Neutrophils % Not Reportable Lymphocytes % Not Reportable Monocytes % Not Reportable Eosinophils % Not Reportable Basophils % Not Reportable Absolute Neutrophils Not Reportable Absolute Lymphocytes Not Reportable Absolute Monocytes Not Reportable Absolute Eosinophils Not Reportable Absolute Basophils Not Reportable Sodium 139.1 Potassium 4.3 Chloride 109 H Carbon Dioxide 26 Anion Gap 4 L BUN 19 Creatinine 0.57 Est GFR ( Amer) > 60 Est GFR (Non-Af Amer) > 60 Glucose 94 Calcium 8.2 L 02/13/18 02/14/18 02/14/18 17:31 21:00 21:00 Creatine Kinase 286 H CK-MB (CK-2) 13.80 H Troponin I < 0.012 < 0.012 02/15/18 02/15/18 02/21/18 04:55 04:55 20:32 Creatine Kinase 162 H 248 H CK-MB (CK-2) 8.94 H Troponin I < 0.012 02/21/18 20:32 Creatine Kinase CK-MB (CK-2) 1.15 Troponin I 0.029 Impressions: Chest/Abdomen CTA 02/18/18 00:00 IMPRESSION: NORMAL CTA OF THE CHEST. NO PULMONARY EMBOLI. Abdomen/Pelvis CT 02/18/18 07:24 IMPRESSION: NO SIGNIFICANT OR ACUTE FINDING IN THE ABDOMEN OR PELVIS ON CT SCAN WITH IV CONTRAST. Chest X-Ray 02/20/18 05:00 IMPRESSION: No significant change. KUB X-Ray 02/23/18 00:00 IMPRESSION: Large amount of stool in the ascending colon and hepatic flexure. Transfer Plan - Disposition Transfer Plan: Transfer to [facility] for short term rehabilitation. She will benefit from serum electrolytes and Digoxin level monitoring while at [facility] for rehabilitation. - Time Spent with Patient Time spent with patient: Greater than 30 Minutes - regarding care coordination and SNF post discharge care planning. Qualifiers - * PATIENT BEING DISCHARGED WITH ANY OF THE FOLLOWING DIAGNOSIS: No Plan Discharge Plan: Transfer to [facility] for short term rehabilitation. Follow up in the office upon discharge from the facility. Patient will benefit from restatement of [facility] services for visiting nurse, personal investment adviser and physical therapy at home upon discharge from SNF. More than 10 minutes of my time was spent in smoking cessation counseling during this discharge evaluation.
[2018-03-02 17:01] VITALS: BP 116/65
--- NOTE | 2018-03-02 22:43 | PDOC PROGRESS REPORT ---
Subjective Progress Note for:: 03/02/18 Subjective:: Heart rate seems somewhat better but still seems to be on high side. Pt is denying any chest arm or neck discomfort. Patient denying any PND, orthopnea. Patient denied any sustained palpitations, dizziness, syncope, near syncope. Patient noted to have fever. Patient denying any other significant discomfort. Patient is maintaining tachycardic rhythm with seems sinus tachycardia Review of systems: Rest review of systems negative. Medications: Medications have been reviewed. Medications reviewed. Reason For Visit: WHEEZING,CHRONIC OBSTRUCTIVE ASTHMA WITH EXACERBAT Physical Exam Vital Signs: Temp Pulse Resp BP Pulse Ox 98.6 F 105 H 18 116/65 96 03/02/18 15:24 03/02/18 16:14 03/02/18 16:14 03/02/18 15:24 03/02/18 16:14 Intake & Output 03/01/18 03/02/18 03/03/18 06:59 06:59 06:59 Intake Total 1368 668 50 Balance 1368 668 50 Weight 69 kg Exam: GENERAL: well-nourished and in no acute distress. Alert and oriented x3 HEAD: Atraumatic, normocephalic. EYES: Pupils equal round and reactive to light, extraocular movements intact, sclera anicteric, conjunctiva are normal. ENT: TMs normal, nares patent, oropharynx clear without exudates. Moist mucous membranes. No oral ulcerations or bleeding gums noted NECK: supple without lymphadenopathy. Trachea is central. No cervical or axillary lymphadenopathy noted. Carotids are 2+, JVD WNL LUNGS: Respiration seems nonlabored, no significant accessory muscle action noted. Breath sounds clear to auscultation bilaterally and equal noted. No wheezes rales or rhonchi noted. No significant dullness noted on percussion. CHEST: Palpation of the chest wall shows no significant chest wall tenderness. Bilateral mastectomy noted. 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 ABDOMEN: Soft, no significant tenderness appreciated, normoactive bowel sounds. No guarding, no rebound. No rigidity noted . No masses appreciated. EXTREMITIES: Pedal pulses are 1-2+, no calf tenderness noted. No clubbing or cyanosis. negative pedal edema noted NEUROLOGICAL: Patient has history of previous CVA and generalized weakness. Full neuro exam not performed. PSYCH: Normal mood, normal affect. Judgment and insight within normal limits. SKIN: No significant ecchymosis, skin is noted to be warm. MUSCULOSKELETAL EXAM: No significant acute joint swelling noted. Results Laboratory Results: 03/02/18 04:50 03/01/18 06:05 03/02/18 04:50 WBC 12.3 H RBC 2.92 L Hgb 9.7 L Hct 29.3 L MCV 100 H MCH 33.1 MCHC 33.0 RDW 13.4 Plt Count 129 L Seg Neutrophils % Not Reportable Lymphocytes % Not Reportable Monocytes % Not Reportable Eosinophils % Not Reportable Basophils % Not Reportable Absolute Neutrophils Not Reportable Absolute Lymphocytes Not Reportable Absolute Monocytes Not Reportable Absolute Eosinophils Not Reportable Absolute Basophils Not Reportable 02/13/18 02/14/18 02/14/18 17:31 21:00 21:00 Creatine Kinase 286 H CK-MB (CK-2) 13.80 H Troponin I < 0.012 < 0.012 02/15/18 02/15/18 02/21/18 04:55 04:55 20:32 Creatine Kinase 162 H 248 H CK-MB (CK-2) 8.94 H Troponin I < 0.012 02/21/18 20:32 Creatine Kinase CK-MB (CK-2) 1.15 Troponin I 0.029 EKG Comments: Sinus rhythm with intermittent sinus tachycardia Impressions: Chest/Abdomen CTA 02/18/18 00:00 IMPRESSION: NORMAL CTA OF THE CHEST. NO PULMONARY EMBOLI. Abdomen/Pelvis CT 02/18/18 07:24 IMPRESSION: NO SIGNIFICANT OR ACUTE FINDING IN THE ABDOMEN OR PELVIS ON CT SCAN WITH IV CONTRAST. Chest X-Ray 02/20/18 05:00 IMPRESSION: No significant change. KUB X-Ray 02/23/18 00:00 IMPRESSION: Large amount of stool in the ascending colon and hepatic flexure. Assessment & Plan - Diagnosis (1) Wide-complex tachycardia Is this a current diagnosis for this admission?: Yes (2) Tachycardia Is this a current diagnosis for this admission?: Yes (3) Acute exacerbation of COPD with asthma Is this a current diagnosis for this admission?: Yes (4) COPD with respiratory failure, acute Is this a current diagnosis for this admission?: Yes (5) Hypokalemia due to loss of potassium Is this a current diagnosis for this admission?: Yes (6) Essential hypertension Is this a current diagnosis for this admission?: Yes - Notes Notes: Patient continues to have sinus tachycardia. However this has improved to some extent. Hopefully this will improve further as her COPD improves and her general debility improves. Patient is being discharged to a rehab facility. Hypertension: Currently is stable. Continue current regimen. COPD: Patient seems to have severe COPD with multiple admissions and intubations. Patient currently on Cardizem. Patient also on low-dose digoxin. Respiratory failure: Patient is status post extubation. - Time Time with patient: 15-25 minutes - More than 50% of the time spent coordinating care, discussing management plans with involved caregivers. Management plans discussed with involved personnels. Medical decision making was of moderate to high complexity, patient's has multiple comorbidities. Medications reviewed and adjusted accordingly: Yes
== END 2018-03-02 18:00 | DRG 207 ==
LOC: ER 07:34 → EH 09:40 → 3S 11:29 → ICU 02-14 19:20 → 3N 02-24 04:40 → 3W 02-25 18:11
PROVIDERS: ADMIT Internal Medicine Geriatric Medicine; ATTEND Internal Medicine Geriatric Medicine
PROC: 5A1955Z Respiratory Ventilation, Greater than 96 Consecutive Hours (ICD-10-PCS; 2018-02-14)
PROC: 0BH17EZ Insertion of Endotracheal Airway into Trachea, Via Natural or Artificial Opening (ICD-10-PCS; 2018-02-14)
PROC: 02HV33Z Insertion of Infusion Device into Superior Vena Cava, Percutaneous Approach (ICD-10-PCS; principal; 2018-02-19)
DX: J44.1 Chronic obstructive pulmonary disease with (acute) exacerbation (principal); J15.6 Pneumonia due to other Gram-negative bacteria; J96.00 Acute respiratory failure, unspecified whether with hypoxia or hypercapnia; I69.354 Hemiplegia and hemiparesis following cerebral infarction affecting left non-dominant side; N30.81 Other cystitis with hematuria; R00.0 Tachycardia, unspecified; E87.6 Hypokalemia; K59.00 Constipation, unspecified; K59.03 Drug induced constipation; T40.605A Adverse effect of unspecified narcotics, initial encounter; I50.9 Heart failure, unspecified; J30.2 Other seasonal allergic rhinitis; I10 Essential (primary) hypertension; E78.5 Hyperlipidemia, unspecified; K44.9 Diaphragmatic hernia without obstruction or gangrene; K21.9 Gastro-esophageal reflux disease without esophagitis; F32.9 Major depressive disorder, single episode, unspecified; F41.9 Anxiety disorder, unspecified; Z79.899 Other long term (current) drug therapy; Z88.8 Allergy status to other drugs, medicaments and biological substances; Z85.3 Personal history of malignant neoplasm of breast; Z90.13 Acquired absence of bilateral breasts and nipples; F17.210 Nicotine dependence, cigarettes, uncomplicated
CPT/HCPCS: 36415; 36600; 71045; 71275; 74018; 74177; 80048; 80053; 81001; 82550; 82553; 82803; 82962; 83735; 83880; 84100; 84132; 84443; 84484; 85025; 85610; 85730; 87040; 87070; 87077; 87086; 87186; 87205; 93005; 93010; 93306; 94002; 94003; 94640; 94660; 94799; 96365; 96367; 96375; 99285; C1751; G8978-GP; G8979-GP; J0360; J0696; J1450; J1642; J1650; J1956; J2250; J2270; J2405; J2704; J2920; J2930; J3475; J3480; J3490; J7030; J7509; J7512; J7620

== ENCOUNTER 2018-05-14 18:12 | Inpatient (IN) | payer MEDICARE, MEDICAID ==
[2018-05-14 19:17] LABS: ABSOLUTE EOSINOPHILS # (AUTO) 0.2 10^3/uL (0.0-0.6); ABSOLUTE LYMPHOCYTES (AUTO) 2.7 10^3/uL (0.5-4.7); ABSOLUTE NEUT (AUTO) 3.1 10^3/uL (1.7-8.2); BASOPHILS % (AUTO) 0.6 % (0-2); EOSINOPHILS % (AUTO) 2.7 % (0-6); HEMATOCRIT 35.4 % (36.0-47.0); HEMOGLOBIN 11.7 g/dL (12.0-15.5); LYMPHOCYTES % (AUTO) 38.9 % (13-45); MEAN CORPUSCULAR HEMOGLOBIN 31.1 pg (27.0-33.4); MEAN CORPUSCULAR HGB CONC 33.1 g/dL (32.0-36.0); MEAN CORPUSCULAR VOLUME 94 fl (80-97); PLATELET COUNT 494 10^3/uL (150-450); RED BLOOD COUNT 3.77 10^6/uL (3.72-5.28); RED CELL DISTRIBUTION WIDTH 15.2 % (11.5-14.0); SEGMENTED NEUTROPHILS % (AUTO) 43.8 % (42-78); TOTAL CELLS COUNTED % (AUTO) 100 %
[2018-05-14] MEDS ORDERED: NORMAL SALINE 1000 ML 1,000 ML IV ONE ×2 (19:41→22:28)
--- NOTE | 2018-05-14 20:06 | RADIOLOGY REPORT (SQ) ---
EXAM DESCRIPTION: CHEST SINGLE VIEW COMPLETED DATE/TIME: 05/14/2018 7:55 pm REASON FOR STUDY: sob COMPARISON: October 2017 EXAM PARAMETERS: NUMBER OF VIEWS: One view. TECHNIQUE: Single frontal radiographic view of the chest acquired. RADIATION DOSE: NA LIMITATIONS: None. FINDINGS: LUNGS AND PLEURA: No opacities, masses or pneumothorax. No pleural effusion. Chronic appe aring changes are identified. There is evidence for obstructive lung disease. MEDIASTINUM AND HILAR STRUCTURES: No masses. Contour normal. HEART AND VASCULAR STRUCTURES: Heart normal in size. Normal vasculature. BONES: No acute findings. HARDWARE: Left shoulder prosthesis is identified OTHER: No other significant finding. IMPRESSION: NO ACUTE RADIOGRAPHIC FINDING IN THE CHEST. TECHNICAL DOCUMENTATION: JOB ID: [id number] [employer]- All Rights Reserved Reading location - IP/workstation name: [email or web address]
[2018-05-14 21:01] LABS: VENOUS BLOOD BASE EXCESS -2.1 mmol/L; VENOUS BLOOD HCO3 22.1 mmol/L (20-32); VENOUS BLOOD PCO2 35.6 mmHg (35-63); VENOUS BLOOD PH 7.41 (7.30-7.42)
[2018-05-14 21:23] LABS: ALANINE AMINOTRANSFERASE 31 U/L (9-52); ALBUMIN 2.9 g/dL (3.5-5.0); ALKALINE PHOSPHATASE 44 U/L (38-126); ANION GAP 11 (5-19); ASPARTATE AMINO TRANSFERASE 32 U/L (14-36); BILIRUBIN,DIRECT 0.2 mg/dL (0.0-0.4); BILIRUBIN,TOTAL 0.5 mg/dL (0.2-1.3); BLOOD UREA NITROGEN 9 mg/dL (7-20); CALCIUM 8.7 mg/dL (8.4-10.2); CARBON DIOXIDE 20 mmol/L (22-30); CHLORIDE 108 mmol/L (98-107); CREATINE KINASE 48 U/L (30-135); GLUCOSE 75 mg/dL (75-110); LIPASE 62.8 U/L (23-300); POTASSIUM 3.2 mmol/L (3.6-5.0); SODIUM 139.1 mmol/L (137-145); TOTAL PROTEIN 5.9 g/dL (6.3-8.2)
[2018-05-14 21:33] LABS: CREATINE KINASE MB 0.36 ng/mL (<4.55); NT PRO BNP 94 pg/mL (5-900)
[2018-05-14 21:39] LABS: TROPONIN I < 0.012 ng/mL
--- NOTE | 2018-05-14 22:01 | EKG REPORT ---
SEVERITY:- ABNORMAL ECG - ACCELERATED JUNCTIONAL RHYTHM VERSUS ECTOPIC ATRIAL RHYTHM BORDERLINE PROLONGED QT INTERVAL : Confirmed by: Roseann Nayak MD 14-May-2018 22:01:08
[2018-05-14 22:08] LABS: APPEARANCE,URINE CLOUDY; BILIRUBIN,URINE NEGATIVE (NEGATIVE); COLOR,URINE YELLOW; GLUCOSE, URINE NEGATIVE (NEGATIVE); KETONES,URINE NEGATIVE (NEGATIVE); LEUKOCYTE ESTERASE,URINE TRACE (NEGATIVE); NITRITE,URINE NEGATIVE (NEGATIVE); PROTEIN,URINE NEGATIVE (NEGATIVE); UROBILINOGEN,URINE NEGATIVE mg/dL (<2.0)
[2018-05-14] MEDS ORDERED: POTASSIUM CHLORIDE 10 MEQ CAPSULE.ER PO ONE (22:23)
--- NOTE | 2018-05-14 23:15 | ER Document Report ---
ED General - General Chief Complaint: Weakness Stated Complaint: WEAKNESS, SHORT OF BREATH Time Seen by Provider: 05/14/18 19:15 TRAVEL OUTSIDE OF THE [place] IN LAST 30 DAYS: No - HPI Patient complains to provider of: Weakness hypotension Notes: Patient coming in today for weakness hypotension. Patient states feeling generally unwell for approximately 1 week. Patient states decreased p.o. intake including food and liquids. Patient has a history of breast cancer with bilateral mastectomies. Patient also has history of hypertension. Patient is on Xarelto along with blood pressure medications. Patient states she has been compliant with all of her medications. Denies any nausea vomiting denies any diarrhea denies any chest pain abdominal pain. Patient upon my evaluation is currently having orthostatics performed and that the last part in standing. Upon standing patient's heart rate does go up to 120 with a blood pressure taken with systolic of 58. Patient states feeling unwell standing and was assisted back in the bed. Patient denies any recent antibiotics patient denies any recent travel - Related Data Allergies/Adverse Reactions: prednisone [Prednisone] Adverse Reaction (Intermediate, Verified 11/21/17 18:46) Past Medical History - Social History Smoking Status: Unknown if Ever Smoked Chew tobacco use (# tins/day): No Frequency of alcohol use: None Drug Abuse: None Family History: Hypertension Patient has suicidal ideation: No Patient has homicidal ideation: No - Past Medical History Cardiac Medical History: Reports: Hx Congestive Heart Failure, Hx Hypercholesterolemia Denies: Hx Coronary Artery Disease, Hx Heart Attack, Hx Hypertension Pulmonary Medical History: Reports: Hx Asthma, Hx Bronchitis, Hx COPD, Hx Pneumonia Denies: Hx Respiratory Failure, Hx Sleep Apnea, Hx Tuberculosis Neurological Medical History: Reports: Hx Cerebrovascular Accident - WEAKNESS ON LEFT SIDE. Denies: Hx Seizures Endocrine Medical History: Renal/ Medical History: Reports: Hx Ovarian Cysts. Denies: Hx Peritoneal Dialysis Malignancy Medical History: Reports: Hx Breast Cancer GI Medical History: Reports: Hx Gastroesophageal Reflux Disease, Hx Hiatal Hernia Musculoskeletal Medical History: Denies Hx Arthritis, Denies Hx Multiple Sclerosis Psychiatric Medical History: Reports: Hx Depression Denies: Hx Dementia Infectious Medical History: Past Surgical History: Reports: Hx Mastectomy - bilat 2010, Hx Orthopedic Surgery - left shoulder replacement 09/10. Denies: Hx Hysterectomy, Hx Pacemaker - Immunizations Hx Diphtheria, Pertussis, Tetanus Vaccination: No Hx Pneumococcal Vaccination: 06/26/11 Review of Systems - Review of Systems Constitutional: Weakness - Hypoirtension EENT: No symptoms reported Cardiovascular: No symptoms reported Respiratory: No symptoms reported Gastrointestinal: No symptoms reported Genitourinary: No symptoms reported Female Genitourinary: No symptoms reported Musculoskeletal: No symptoms reported Skin: No symptoms reported Hematologic/Lymphatic: No symptoms reported Neurological/Psychological: No symptoms reported Physical Exam - Vital signs Vitals: Temp Pulse Resp BP Pulse Ox 98.2 F 100 14 93/53 L 95 05/14/18 18:21 05/14/18 18:21 05/14/18 18:21 05/14/18 18:21 05/14/18 18:21 Interpretation: Hypotensive - General General appearance: Appears well, Alert - HEENT Head: Normocephalic, Atraumatic Eyes: Normal Pupils: PERRL Mucous membranes: Dry - Respiratory Respiratory status: No respiratory distress Chest status: Nontender Breath sounds: Normal Chest palpation: Normal - Cardiovascular Rhythm: Regular Heart sounds: Normal auscultation Murmur: No - Abdominal Inspection: Normal Distension: No distension Bowel sounds: Normal Tenderness: Nontender Organomegaly: No organomegaly - Back Back: Normal, Nontender - Extremities General upper extremity: Normal inspection, Nontender, Normal color, Normal ROM , Normal temperature General lower extremity: Normal inspection, Nontender, Normal color, Normal ROM , Normal temperature, Normal weight bearing. No: Oscar's sign - Neurological Neuro grossly intact: Yes Cognition: Normal Orientation: AAOx4 Prentice Coma Scale Eye Opening: Spontaneous Billy Coma Scale Verbal: Oriented Billy Coma Scale Motor: Obeys Commands Prentice Coma Scale Total: 15 Speech: Normal Motor strength normal: LUE, RUE, LLE, RLE Sensory: Normal - Psychological Associated symptoms: Normal affect, Normal mood - Skin Skin Temperature: Warm Skin Moisture: Dry Skin Color: Normal Course - Re-evaluation Re-evalutation: 05/14/18 23:13 Laboratory studies showed a bicarb of 20 hypokalemia 3.2 normal magnesium. No signs of infection or sepsis. Patient remained orthostatic stating that she felt unwell. Discussed with PCP will admit the patient to IMCU with slow hydration with normal saline at 100. - Vital Signs Vital signs: Temp Pulse Resp BP Pulse Ox 98.2 F 93 17 96/68 L 97 05/14/18 18:21 05/14/18 19:36 05/14/18 22:01 05/14/18 22:01 05/14/18 22:01 - Laboratory Result Diagrams: 05/14/18 18:55 05/14/18 20:43 Laboratory results interpreted by me: 05/14/18 05/14/18 05/14/18 18:55 20:43 21:45 Hgb 11.7 L Hct 35.4 L RDW 15.2 H Plt Count 494 H Monocytes % 14.0 H Potassium 3.2 L Chloride 108 H Carbon Dioxide 20 L Total Protein 5.9 L Albumin 2.9 L Ur Leukocyte Esterase TRACE H Discharge - Discharge Clinical Impression: Breast cancer, Hypotension, Weakness, Dehydration Condition: Good Disposition: ADMITTED OBSERVATION Admitting Provider: Celsa Unit Admitted: IMCU Referrals: LUKASZ ORNELAS MD [Primary Care Provider] - Follow up as needed
[2018-05-15] MEDS: NORMAL SALINE 1000 ML 1,000 ML IV PRN ×3 (01:27→23:18)
[2018-05-15] MEDS ORDERED: ALBUTEROL SULFATE HFA (90 MCG/PUFF) 200 PUFF/8.5 GM MDI IH PRN (08:32)
[2018-05-15 09:46] LABS: ANION GAP 10 (5-19); BLOOD UREA NITROGEN 6 mg/dL (7-20); CALCIUM 8.7 mg/dL (8.4-10.2); CARBON DIOXIDE 20 mmol/L (22-30); CHLORIDE 113 mmol/L (98-107); GLUCOSE 83 mg/dL (75-110); POTASSIUM 3.5 mmol/L (3.6-5.0); SODIUM 142.5 mmol/L (137-145)
[2018-05-15] MEDS ORDERED: ASCORBIC ACID 500 MG TABLET PO SCH (10:00)
[2018-05-15] MEDS ORDERED: (PENDING PHARMACY ID) (Azelastine Hcl [Azelastine Hcl] 2 SPRAY) NASL SCH (10:00)
[2018-05-15] MEDS ORDERED: (PENDING PHARMACY ID) (Lansoprazole [Prevacid] 30 MG) PO SCH (10:00)
[2018-05-15] MEDS ORDERED: LINACLOTIDE PO SCH (10:00)
[2018-05-15] MEDS: FERROUS SULFATE 325 MG TABLET PO SCH (13:31)
[2018-05-15] MEDS: DIGOXIN 0.125 MG TABLET PO SCH (13:32)
[2018-05-15] MEDS ORDERED: ACETAMINOPHEN 325 MG TABLET PO PRN (13:35)
[2018-05-15] MEDS: LEVALBUTEROL HCL NEB 1.25 MG/3 ML AMPUL NEB SCH ×3 (13:52→20:35)
[2018-05-15] MEDS: ACETAMINOPHEN 325 MG TABLET PO PRN ×2 (14:40→21:08)
[2018-05-15] MEDS: TIOTROPIUM BROMIDE DPI 5 CAP/KIT (18 MCG/CAP) IH SCH (14:41)
[2018-05-15] MEDS: ANASTROZOLE 1 MG TABLET PO SCH (14:41)
[2018-05-15] MEDS: RIVAROXABAN 10 MG TABLET PO SCH (17:15)
[2018-05-15] MEDS: MONTELUKAST SODIUM 10 MG TABLET PO SCH (17:15)
[2018-05-15] MEDS: DRONEDARONE HYDROCHLORIDE 400 MG TABLET PO SCH (17:16)
[2018-05-15] MEDS ORDERED: BUDESONIDE/FORMOTEROL 160-4.5 MCG 60 PUFF/6 GM MDI IH SCH (18:00)
--- NOTE | 2018-05-15 20:48 | PDOC H&P ---
History of Present Illness Admission Date/PCP: 05/14/18 23:48 LUKASZ CECI Patient complains of: Weakness , Shortness of breath History of Present Illness: ARIELLA JUAREZ is a 53 year old female known to my practice who presented to the ED with compliant of generally not feeling well for couple of days. She denied any associated chest pain or palpitation but reported shortness of breath. She admitted to poor appetite and oral intake. No nausea, vomiting, diarrhea, or abdominal pain. She denied any fever or chills. No dysuria, hematuria or flank pain. she reported compliance with her medications. Her initial evaluation in the ED was remarkable for demonstrable orthostasis with tachycardia and hypotension. She was advised hospitalization due to symptomatic hypotension. Past Medical History Cardiac Medical History: Reports: Congestive Heart Failure, Hyperlipidema Denies: Coronary Artery Disease, Myocardial Infarction, Hypertension Pulmonary Medical History: Reports: Asthma, Bronchitis, Chronic Obstructive Pulmonary Disease (COPD), Pneumonia Denies: Respiratory Failure, Sleep Apnea, Tuberculosis Neurological Medical History: Denies: Seizures Endocrine Medical History: Malignancy Medical History: Reports: Breast Cancer GI Medical History: Reports: Gastroesophageal Reflux Disease, Hiatal Hernia Musculoskeltal Medical History: Denies: Arthritis Psychiatric Medical History: Reports: Depression Denies: Dementia Hematology: Denies: Anemia Past Surgical History Past Surgical History: Reports: Mastectomy - bilat 2010, Orthopedic Surgery - left shoulder replacement 09/10 Denies: Hysterectomy, Pacemaker Social History Smoking Status: Unknown if Ever Smoked Frequency of Alcohol Use: Social Hx Recreational Drug Use: No Drugs: None Hx Prescription Drug Abuse: No Family History Family History: Hypertension Parental Family History Reviewed: Yes Children Family History Reviewed: Yes Sibling(s) Family History Reviewed.: Yes Medication/Allergy Home Medications: Albuterol Sulfate [Proair HFA Inhalation Aerosol 8.5 gm MDI] 2 puff IH Q4HP PRN 05/15/18 Anastrozole [Arimidex 1 mg Tablet] 1 mg PO DAILY 05/15/18 Azelastine HCl 2 spray NASL BID 05/15/18 Benzonatate [Tessalon Perle 100 mg Capsule] 200 mg PO TIDP PRN 05/15/18 Budesonide/Formoterol Fumarate [Symbicort HFA 160-4.5 mcg Inhaler 6 gm] 2 puff IH BID 05/15/18 Digoxin [Lanoxin 0.125 mg Tablet] 0.125 mg PO DAILY 05/15/18 Diltiazem HCl [Cardizem Cd 180 mg Capsule] 180 mg PO Q12 05/15/18 Dronedarone Hydrochloride [Multaq 400 mg Tablet] 400 mg PO BID 05/15/18 Ferrous Sulfate [Feosol 325 mg Tablet] 325 mg PO DAILY 05/15/18 Furosemide [Lasix 20 mg Tablet] 20 mg PO DAILY 05/15/18 Lansoprazole [Prevacid] 30 mg PO DAILY 05/15/18 Levalbuterol HCl [Xopenex Neb 1.25 mg/3 ml Ampul] 1.25 mg NEB RTQ4 05/15/18 Linaclotide [Linzess 145 Mcg Capsule] 145 mcg PO DAILY 05/15/18 Lisinopril [Zestril] 10 mg PO DAILY 05/15/18 Montelukast Sodium [Singulair 10 mg Tablet] 10 mg PO QPM 05/15/18 Rivaroxaban [Xarelto] 20 mg PO WSUPPER 05/15/18 Tiotropium [place] [Spiriva Handihaler 5 Cap/Kit (18 Mcg/Cap)] 1 cap IH DAILY Allergies/Adverse Reactions: prednisone [Prednisone] Adverse Reaction (Intermediate, Verified 11/21/17 18:46) Review of Systems Constitutional: ABSENT: chills, fever(s), headache(s), weight gain, weight loss Eyes: ABSENT: visual disturbances Ears: ABSENT: hearing changes Nose, Mouth, and Throat: ABSENT: as per HPI, headache(s), mouth pain, sore throat, vertigo, other Cardiovascular: ABSENT: chest pain, dyspnea on exertion, edema, orthropnea, palpitations Respiratory: PRESENT: dyspnea. ABSENT: as per HPI, cough, hemoptysis, sputum, other Gastrointestinal: ABSENT: abdominal pain, constipation, diarrhea, hematemesis, hematochezia, nausea, vomiting Genitourinary: ABSENT: dysuria, hematuria Musculoskeletal: ABSENT: joint swelling Integumentary: ABSENT: rash, wounds Neurological: ABSENT: abnormal gait, abnormal speech, confusion, dizziness, focal weakness, syncope Psychiatric: ABSENT: anxiety, depression, homidical ideation, suicidal ideation Endocrine: ABSENT: cold intolerance, heat intolerance, polydipsia, polyuria Hematologic/Lymphatic: ABSENT: easy bleeding, easy bruising, lymphadenopathy Allergic/Immunologic: ABSENT: seasonal rhinorrhea Physical Exam Vital Signs: Temp Pulse Resp BP Pulse Ox 99.0 F 88 20 90/50 L 100 05/15/18 03:16 05/15/18 03:16 05/15/18 03:16 05/15/18 03:16 05/15/18 03:16 Intake & Output 05/14/18 05/15/18 05/16/18 06:59 06:59 06:59 Intake Total 295 Balance 295 Weight 58.1 kg General appearance: PRESENT: no acute distress Head exam: PRESENT: atraumatic, normocephalic Eye exam: PRESENT: conjunctiva pink, EOMI, PERRLA. ABSENT: scleral icterus Ear exam: PRESENT: normal external ear exam Mouth exam: PRESENT: moist Neck exam: PRESENT: full ROM. ABSENT: carotid bruit, JVD, lymphadenopathy, thyromegaly Respiratory exam: PRESENT: clear to auscultation darinel Cardiovascular exam: PRESENT: RRR. ABSENT: diastolic murmur, rubs, systolic murmur Vascular exam: PRESENT: normal capillary refill. ABSENT: pallor GI/Abdominal exam: PRESENT: normal bowel sounds, soft. ABSENT: distended, guarding, mass, organolmegaly, rebound, tenderness Rectal exam: PRESENT: deferred Extremities exam: ABSENT: pedal edema Musculoskeletal exam: PRESENT: ambulatory, normal inspection Neurological exam: PRESENT: alert, awake, oriented to person, oriented to place , oriented to time, oriented to situation, CN II-XII grossly intact. ABSENT: motor sensory deficit Psychiatric exam: PRESENT: appropriate affect, normal mood. ABSENT: homicidal ideation, suicidal ideation Skin exam: PRESENT: dry, intact, warm, other - bilateral mastectomies.. ABSENT : cyanosis, rash Results Impressions: Chest X-Ray 05/14/18 19:40 IMPRESSION: NO ACUTE RADIOGRAPHIC FINDING IN THE CHEST. Assessment & Plan - Diagnosis (1) Orthostasis Is this a current diagnosis for this admission?: Yes Plan: Maintain on IV fluid infusion. Helix fall precautions and discussed need for assistance with postural change with the patient. (2) Hypotension Qualifiers: Hypotension type: hypotension due to hypovolemia Qualified Code(s): I95.89 - Other hypotension; E86.1 - Hypovolemia; E86.1 - Hypovolemia Is this a current diagnosis for this admission?: Yes Plan: Maintain on IV normal saline fluid infusion. Hold anti HTN medication management until her blood pressure show improvement. (3) Hypokalemia due to loss of potassium Is this a current diagnosis for this admission?: Yes Plan: Patient will receive potassium replacement. Obtain serum magnesium level. Repeat BMP in am. (4) COPD with hypoxia Is this a current diagnosis for this admission?: Yes Plan: Maintain on pre-admission medication management. 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
[2018-05-15] MEDS ORDERED: POTASSIUM CHLORIDE 10 MEQ CAPSULE.ER PO ONE (21:00)
[2018-05-16] MEDS: LEVALBUTEROL HCL NEB 1.25 MG/3 ML AMPUL NEB SCH ×6 (00:56→20:44)
[2018-05-16] MEDS: ACETAMINOPHEN 325 MG TABLET PO PRN ×2 (04:54→23:14)
[2018-05-16] MEDS: DRONEDARONE HYDROCHLORIDE 400 MG TABLET PO SCH ×2 (05:00→17:09)
[2018-05-16] MEDS: LANSOPRAZOLE 30 MG TAB.RAP.DR PO SCH (05:02)
[2018-05-16 06:56] LABS: ANION GAP 10 (5-19); BLOOD UREA NITROGEN 3 mg/dL (7-20); CALCIUM 8.7 mg/dL (8.4-10.2); CARBON DIOXIDE 19 mmol/L (22-30); CHLORIDE 115 mmol/L (98-107); GLUCOSE 96 mg/dL (75-110); POTASSIUM 3.4 mmol/L (3.6-5.0); SODIUM 143.9 mmol/L (137-145)
[2018-05-16] MEDS: ANASTROZOLE 1 MG TABLET PO SCH (09:06)
[2018-05-16] MEDS: FERROUS SULFATE 325 MG TABLET PO SCH (09:06)
[2018-05-16] MEDS: POTASSIUM CHLORIDE 10 MEQ CAPSULE.ER PO SCH ×2 (09:07→14:53)
[2018-05-16] MEDS: TIOTROPIUM BROMIDE DPI 5 CAP/KIT (18 MCG/CAP) IH SCH (09:07)
[2018-05-16] MEDS: BUDESONIDE/FORMOTEROL 160-4.5 MCG 60 PUFF/6 GM MDI IH SCH ×2 (09:07→22:21)
[2018-05-16] MEDS: DIGOXIN 0.125 MG TABLET PO SCH (09:07)
[2018-05-16] MEDS ORDERED: (PENDING PHARMACY ID) (Linaclotide [Linzess] 145 MCG) PO SCH (10:00)
[2018-05-16] MEDS: NORMAL SALINE 1000 ML 1,000 ML IV PRN (14:55)
[2018-05-16] MEDS: RIVAROXABAN 10 MG TABLET PO SCH (17:09)
[2018-05-16] MEDS: MONTELUKAST SODIUM 10 MG TABLET PO SCH (17:10)
[2018-05-16] MEDS ORDERED: BENZONATATE 100 MG CAPSULE PO PRN (18:23)
[2018-05-16] MEDS ORDERED: ONDANSETRON HCL INJ/PF 4 MG/2 ML SDV IV ONE (19:30)
[2018-05-16] MEDS ORDERED: ONDANSETRON HCL INJ/PF 4 MG/2 ML SDV ONE (22:14)
[2018-05-16] MEDS: MAGNESIUM OXIDE 400 MG TABLET PO SCH (22:20)
[2018-05-16] MEDS: DILTIAZEM HCL 180 MG CAPSULE.CR PO SCH (22:20)
[2018-05-17] MEDS: LEVALBUTEROL HCL NEB 1.25 MG/3 ML AMPUL NEB SCH ×6 (04:08→20:13)
[2018-05-17 05:47] LABS: ANION GAP 9 (5-19); CALCIUM 8.9 mg/dL (8.4-10.2); CARBON DIOXIDE 22 mmol/L (22-30); CHLORIDE 112 mmol/L (98-107); GLUCOSE 77 mg/dL (75-110); POTASSIUM 4.3 mmol/L (3.6-5.0); SODIUM 142.8 mmol/L (137-145)
[2018-05-17 05:51] LABS: BLOOD UREA NITROGEN < 2 mg/dL (7-20)
[2018-05-17] MEDS: DRONEDARONE HYDROCHLORIDE 400 MG TABLET PO SCH ×2 (06:07→17:06)
[2018-05-17] MEDS: LANSOPRAZOLE 30 MG TAB.RAP.DR PO SCH (06:07)
[2018-05-17] MEDS: MAGNESIUM OXIDE 400 MG TABLET PO SCH (09:48)
[2018-05-17] MEDS: NORMAL SALINE 1000 ML 1,000 ML IV PRN ×2 (09:48→20:02)
[2018-05-17] MEDS: DILTIAZEM HCL 180 MG CAPSULE.CR PO SCH ×2 (09:49→21:13)
[2018-05-17] MEDS: ANASTROZOLE 1 MG TABLET PO SCH (09:49)
[2018-05-17] MEDS: TIOTROPIUM BROMIDE DPI 5 CAP/KIT (18 MCG/CAP) IH SCH (09:49)
[2018-05-17] MEDS: BUDESONIDE/FORMOTEROL 160-4.5 MCG 60 PUFF/6 GM MDI IH SCH ×2 (09:49→21:14)
[2018-05-17] MEDS: FERROUS SULFATE 325 MG TABLET PO SCH (09:49)
[2018-05-17] MEDS: DIGOXIN 0.125 MG TABLET PO SCH (09:49)
[2018-05-17] MEDS: RIVAROXABAN 10 MG TABLET PO SCH (17:06)
[2018-05-17] MEDS: MONTELUKAST SODIUM 10 MG TABLET PO SCH (17:06)
--- NOTE | 2018-05-17 20:36 | PDOC PROGRESS REPORT ---
Subjective Progress Note for:: 05/16/18 Subjective:: Patient continue to express issue with breathing and intermittent coughing. There has been some improvement in her blood pressure with associated tachycardia. No chest pain, nausea, vomiting or abdominal pain. Reason For Visit: HYPOTENSION Physical Exam Vital Signs: Temp Pulse Resp BP Pulse Ox 99.4 F 102 H 16 110/63 96 05/16/18 16:38 05/16/18 16:38 05/16/18 16:38 05/16/18 16:38 05/16/18 16:38 Intake & Output 05/15/18 05/16/18 05/17/18 06:59 06:59 06:59 Intake Total 295 2780 2610 Balance 295 2780 2610 Weight 58.1 kg 61.1 kg General appearance: PRESENT: mild distress - on supplemental oxygen via nasal cannula Head exam: PRESENT: atraumatic, normocephalic Eye exam: PRESENT: conjunctiva pink, EOMI, PERRLA. ABSENT: scleral icterus Ear exam: PRESENT: TM's normal bilaterally Mouth exam: PRESENT: moist Respiratory exam: PRESENT: clear to auscultation darinel, decreased breath sounds - at lung bases Cardiovascular exam: PRESENT: RRR. ABSENT: diastolic murmur, rubs, systolic murmur Vascular exam: PRESENT: normal capillary refill. ABSENT: pallor GI/Abdominal exam: PRESENT: normal bowel sounds, soft. ABSENT: distended, guarding, mass, organolmegaly, rebound, tenderness Extremities exam: ABSENT: joint swelling, pedal edema Musculoskeletal exam: PRESENT: ambulatory - limited due to exertional dyspnea Neurological exam: PRESENT: alert, awake, oriented to person, oriented to place , oriented to time, oriented to situation, CN II-XII grossly intact. ABSENT: motor sensory deficit Psychiatric exam: PRESENT: appropriate affect, normal mood. ABSENT: homicidal ideation, suicidal ideation Skin exam: PRESENT: dry, intact, warm. ABSENT: cyanosis, rash Results Laboratory Results: 05/16/18 06:24 05/15/18 05/16/18 05/16/18 20:44 06:24 06:24 Sodium 143.9 Potassium 3.4 L Chloride 115 H Carbon Dioxide 19 L Anion Gap 10 BUN 3 L Creatinine 0.58 Est GFR ( Amer) > 60 Est GFR (Non-Af Amer) > 60 Glucose 96 Calcium 8.7 Magnesium 1.6 1.6 Impressions: Chest X-Ray 05/14/18 19:40 IMPRESSION: NO ACUTE RADIOGRAPHIC FINDING IN THE CHEST. Assessment & Plan - Diagnosis (1) Orthostasis Is this a current diagnosis for this admission?: Yes (2) Hypotension Qualifiers: Hypotension type: hypotension due to hypovolemia Qualified Code(s): I95.89 - Other hypotension; E86.1 - Hypovolemia; E86.1 - Hypovolemia Is this a current diagnosis for this admission?: Yes (3) Hypokalemia due to loss of potassium Is this a current diagnosis for this admission?: Yes (4) COPD with hypoxia Is this a current diagnosis for this admission?: Yes - Time Time Spent with patient: 25-34 minutes Medications reviewed and adjusted accordingly: Yes Anticipated discharge: Home Within: within 24 hours - Plan Summary Plan Summary: Restart on Cardizem therapy. Continue IV fluid support. Monitor orthostatic blood pressure. Replacement of hypokalemia. Obtain Mag level. Repeat BMP in am.
[2018-05-17] MEDS: MAGNESIUM SULFATE/D5W 1 GM/100 ML RTUPB IV SCH ×2 (21:16→22:47)
[2018-05-17] MEDS: ACETAMINOPHEN 325 MG TABLET PO PRN (22:46)
[2018-05-18] MEDS: LEVALBUTEROL HCL NEB 1.25 MG/3 ML AMPUL NEB SCH ×7 (00:26→23:58)
[2018-05-18] MEDS: ACETAMINOPHEN 325 MG TABLET PO PRN ×2 (03:49→23:31)
[2018-05-18] MEDS: DRONEDARONE HYDROCHLORIDE 400 MG TABLET PO SCH ×2 (06:50→17:09)
[2018-05-18] MEDS: LANSOPRAZOLE 30 MG TAB.RAP.DR PO SCH (06:50)
[2018-05-18] MEDS: TIOTROPIUM BROMIDE DPI 5 CAP/KIT (18 MCG/CAP) IH SCH (10:32)
[2018-05-18] MEDS: BUDESONIDE/FORMOTEROL 160-4.5 MCG 60 PUFF/6 GM MDI IH SCH ×2 (10:32→22:24)
[2018-05-18] MEDS: NORMAL SALINE 1000 ML 1,000 ML IV PRN (10:32)
[2018-05-18] MEDS: FERROUS SULFATE 325 MG TABLET PO SCH (10:33)
[2018-05-18] MEDS: ANASTROZOLE 1 MG TABLET PO SCH (10:33)
[2018-05-18] MEDS: DILTIAZEM HCL 180 MG CAPSULE.CR PO SCH ×2 (10:33→22:24)
[2018-05-18] MEDS: MAGNESIUM OXIDE 400 MG TABLET PO SCH (10:33)
[2018-05-18] MEDS: DIGOXIN 0.125 MG TABLET PO SCH (10:33)
--- NOTE | 2018-05-18 15:50 | PDOC PROGRESS REPORT ---
Subjective Progress Note for:: 05/18/18 Subjective:: Patient is currently doing fair denied any chest pain to than any shortness of breath Patient's blood pressure is 100 systolic Reason For Visit: SYMPTOMATIC HYPOTENSION WITH ORTHOSIS;HYPOKALEMIA Physical Exam Vital Signs: Temp Pulse Resp BP Pulse Ox 98.5 F 89 17 99/64 L 97 05/18/18 11:29 05/18/18 12:19 05/18/18 12:19 05/18/18 11:29 05/18/18 12:19 Intake & Output 05/17/18 05/18/18 05/19/18 06:59 06:59 06:59 Intake Total 1554 640 Output Total 401 Balance 1554 239 Weight 59.9 kg General appearance: PRESENT: no acute distress, well-developed, well-nourished Head exam: PRESENT: atraumatic, normocephalic Eye exam: PRESENT: conjunctiva pink, EOMI, PERRLA. ABSENT: scleral icterus Ear exam: PRESENT: normal external ear exam Mouth exam: PRESENT: moist, tongue midline Neck exam: PRESENT: full ROM. ABSENT: carotid bruit, JVD, lymphadenopathy, thyromegaly Respiratory exam: PRESENT: clear to auscultation darinel Cardiovascular exam: PRESENT: RRR. ABSENT: diastolic murmur, rubs, systolic murmur Pulses: PRESENT: normal dorsalis pedis pul, +2 pedal pulses bilateral Vascular exam: PRESENT: normal capillary refill GI/Abdominal exam: PRESENT: normal bowel sounds, soft. ABSENT: distended, guarding, mass, organolmegaly, rebound, tenderness Rectal exam: PRESENT: deferred Extremities exam: ABSENT: pedal edema Neurological exam: PRESENT: alert, awake, oriented to person, oriented to place , oriented to time, oriented to situation, CN II-XII grossly intact. ABSENT: motor sensory deficit Psychiatric exam: PRESENT: appropriate affect, normal mood. ABSENT: homicidal ideation, suicidal ideation Skin exam: PRESENT: dry, intact, warm. ABSENT: cyanosis, rash Results Impressions: Chest X-Ray 05/14/18 19:40 IMPRESSION: NO ACUTE RADIOGRAPHIC FINDING IN THE CHEST. Assessment & Plan - Diagnosis (1) COPD with hypoxia Is this a current diagnosis for this admission?: Yes (2) Hypotension Qualifiers: Hypotension type: hypotension due to hypovolemia Qualified Code(s): I95.89 - Other hypotension; E86.1 - Hypovolemia; E86.1 - Hypovolemia Is this a current diagnosis for this admission?: Yes (3) Orthostasis Is this a current diagnosis for this admission?: Yes (4) Breast cancer Is this a current diagnosis for this admission?: No (5) Hypokalemia due to loss of potassium Is this a current diagnosis for this admission?: Yes - Time Time Spent with patient: 15-24 minutes Medications reviewed and adjusted accordingly: Yes Anticipated discharge: Home Within: Other - Inpatient Certification I certify that my determination is in accordance with my understanding of Medicare's requirements for reasonable and necessary INPATIENT services [42 CFR 412.3e].: Yes Medical Necessity: Need Close Monitoring Due to Risk of Patient Decompensation, Need For IV Fluids 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
[2018-05-18] MEDS: RIVAROXABAN 10 MG TABLET PO SCH (17:09)
[2018-05-18] MEDS: MONTELUKAST SODIUM 10 MG TABLET PO SCH (17:09)
--- NOTE | 2018-05-18 19:39 | PDOC PROGRESS REPORT ---
Subjective Progress Note for:: 05/17/18 Subjective:: Patient continue to complain about dizziness with sitting up and standing in her room. No chest pain, nausea, vomiting or abdominal pain. Her orthostatic blood pressure although improving continue to be a concern. She remain on IV fluid support with some improvement in her tachycardia. No recurrent epistaxis and coughing with blood streaks on minimally produced sputum. Reason For Visit: HYPOTENSION Physical Exam Vital Signs: Temp Pulse Resp BP Pulse Ox 99.6 F 91 14 96/48 L 98 05/17/18 16:14 05/17/18 20:14 05/17/18 20:14 05/17/18 16:14 05/17/18 20:14 Intake & Output 05/16/18 05/17/18 05/18/18 06:59 06:59 06:59 Intake Total 2780 3850 1536 Balance 2780 3850 1536 Weight 61.1 kg 60.8 kg Physical Exam: General appearance: PRESENT: mild distress - on supplemental oxygen via nasal cannula Head exam: PRESENT: atraumatic, normocephalic Eye exam: PRESENT: conjunctiva pink, EOMI, PERRLA. ABSENT: scleral icterus Ear exam: PRESENT: TM's normal bilaterally Mouth exam: PRESENT: moist Respiratory exam: PRESENT: clear to auscultation darinel, decreased breath sounds - at lung bases Cardiovascular exam: PRESENT: RRR. ABSENT: diastolic murmur, rubs, systolic murmur Vascular exam: PRESENT: normal capillary refill. ABSENT: pallor GI/Abdominal exam: PRESENT: normal bowel sounds, soft. ABSENT: distended, guarding, mass, organomegaly, rebound, tenderness Extremities exam: ABSENT: joint swelling, pedal edema Musculoskeletal exam: PRESENT: ambulatory - limited due to exertional dyspnea Neurological exam: PRESENT: alert, awake, oriented to person, oriented to place , oriented to time, oriented to situation, CN II-XII grossly intact. ABSENT: motor sensory deficit Psychiatric exam: PRESENT: appropriate affect, normal mood. ABSENT: homicidal ideation, suicidal ideation Skin exam: PRESENT: dry, intact, warm. ABSENT: cyanosis, rash Results Laboratory Results: 05/17/18 04:45 05/17/18 04:45 Sodium 142.8 Potassium 4.3 Chloride 112 H Carbon Dioxide 22 Anion Gap 9 BUN < 2 L Creatinine 0.54 Est GFR ( Amer) > 60 Est GFR (Non-Af Amer) > 60 Glucose 77 Calcium 8.9 Magnesium 1.5 L Impressions: Chest X-Ray 05/14/18 19:40 IMPRESSION: NO ACUTE RADIOGRAPHIC FINDING IN THE CHEST. Assessment & Plan - Diagnosis (1) Orthostasis Is this a current diagnosis for this admission?: Yes (2) Hypotension Qualifiers: Hypotension type: hypotension due to hypovolemia Qualified Code(s): I95.89 - Other hypotension; E86.1 - Hypovolemia; E86.1 - Hypovolemia Is this a current diagnosis for this admission?: Yes (3) Hypokalemia due to loss of potassium Is this a current diagnosis for this admission?: Yes (4) COPD with hypoxia Is this a current diagnosis for this admission?: Yes - Time Time Spent with patient: 25-34 minutes Medications reviewed and adjusted accordingly: Yes Anticipated discharge: Home with Homehealth Within: Other - Inpatient Certification Based on my medical assessment, after consideration of the patient's comorbidities, presenting symptoms, or acuity I expect that the services needed warrant INPATIENT care.: Yes I certify that my determination is in accordance with my understanding of Medicare's requirements for reasonable and necessary INPATIENT services [42 CFR 412.3e].: Yes Medical Necessity: Need Close Monitoring Due to Risk of Patient Decompensation, Need For IV Fluids, Need For Continuous Telemetry Monitoring, Need for Nebulizer Therapy and Monitoring of Response, Risk of Complication if Not Cared For in Hospital 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 Continue to hold her Lisinopril therapy. Consider adjustment in her cardizam dosage if blood pressure remain loss and symptomatic. Change admision status to full admission in view of her persistent symptomatic hypotension.
[2018-05-19] MEDS: NORMAL SALINE 1000 ML 1,000 ML IV PRN ×3 (02:27→12:16)
[2018-05-19] MEDS: LEVALBUTEROL HCL NEB 1.25 MG/3 ML AMPUL NEB SCH ×5 (04:04→20:11)
[2018-05-19 04:56] LABS: ABSOLUTE BASOPHILS # (AUTO) 0.1 10^3/uL (0.0-0.2); ABSOLUTE EOSINOPHILS # (AUTO) 0.3 10^3/uL (0.0-0.6); ABSOLUTE LYMPHOCYTES (AUTO) 2.3 10^3/uL (0.5-4.7); ABSOLUTE MONOCYTES (AUTO) 0.9 10^3/uL (0.1-1.4); ABSOLUTE NEUT (AUTO) 3.6 10^3/uL (1.7-8.2); BASOPHILS % (AUTO) 0.8 % (0-2); EOSINOPHILS % (AUTO) 4.4 % (0-6); HEMATOCRIT 30.7 % (36.0-47.0); LYMPHOCYTES % (AUTO) 32.4 % (13-45); MEAN CORPUSCULAR HEMOGLOBIN 30.4 pg (27.0-33.4); MEAN CORPUSCULAR HGB CONC 32.6 g/dL (32.0-36.0); MEAN CORPUSCULAR VOLUME 93 fl (80-97); MONOCYTES % (AUTO) 12.1 % (3-13); PLATELET COUNT 386 10^3/uL (150-450); RED BLOOD COUNT 3.29 10^6/uL (3.72-5.28); RED CELL DISTRIBUTION WIDTH 14.6 % (11.5-14.0); SEGMENTED NEUTROPHILS % (AUTO) 50.3 % (42-78); TOTAL CELLS COUNTED % (AUTO) 100 %; WHITE BLOOD COUNT 7.2 10^3/uL (4.0-10.5)
[2018-05-19 05:13] LABS: ANION GAP 10 (5-19); BLOOD UREA NITROGEN 2 mg/dL (7-20); CALCIUM 8.8 mg/dL (8.4-10.2); CARBON DIOXIDE 25 mmol/L (22-30); CHLORIDE 107 mmol/L (98-107); GLUCOSE 102 mg/dL (75-110); POTASSIUM 3.5 mmol/L (3.6-5.0); SODIUM 141.8 mmol/L (137-145)
[2018-05-19] MEDS: DRONEDARONE HYDROCHLORIDE 400 MG TABLET PO SCH ×2 (05:27→17:10)
[2018-05-19] MEDS: LANSOPRAZOLE 30 MG TAB.RAP.DR PO SCH (05:27)
[2018-05-19] MEDS ORDERED: POTASSIUM CHLORIDE 10 MEQ CAPSULE.ER PO ONE (08:11)
[2018-05-19] MEDS ORDERED: DILTIAZEM HCL 180 MG CAPSULE.CR PO SCH (09:00)
--- NOTE | 2018-05-19 09:02 | PDOC PROGRESS REPORT ---
Subjective Progress Note for:: 05/19/18 Subjective:: Patient is currently doing fair denied any chest pain to than any shortness of breath Patient's blood pressure is 100 systolic Reason For Visit: SYMPTOMATIC HYPOTENSION WITH ORTHOSIS;HYPOKALEMIA Physical Exam Vital Signs: Temp Pulse Resp BP Pulse Ox 98.6 F 83 16 95/52 L 98 05/19/18 08:00 05/19/18 08:00 05/19/18 08:00 05/19/18 08:00 05/19/18 08:00 Intake & Output 05/18/18 05/19/18 05/20/18 06:59 06:59 06:59 Intake Total 1554 1880 Output Total 1402 Balance 1554 478 Weight 59.9 kg 57.4 kg General appearance: PRESENT: no acute distress, well-developed, well-nourished Head exam: PRESENT: atraumatic, normocephalic Eye exam: PRESENT: conjunctiva pink, EOMI, PERRLA. ABSENT: scleral icterus Ear exam: PRESENT: normal external ear exam Mouth exam: PRESENT: moist, tongue midline Neck exam: PRESENT: full ROM. ABSENT: carotid bruit, JVD, lymphadenopathy, thyromegaly Respiratory exam: PRESENT: clear to auscultation darinel Cardiovascular exam: PRESENT: RRR. ABSENT: diastolic murmur, rubs, systolic murmur Pulses: PRESENT: normal dorsalis pedis pul, +2 pedal pulses bilateral Vascular exam: PRESENT: normal capillary refill GI/Abdominal exam: PRESENT: normal bowel sounds, soft. ABSENT: distended, guarding, mass, organolmegaly, rebound, tenderness Rectal exam: PRESENT: deferred Extremities exam: ABSENT: pedal edema Neurological exam: PRESENT: alert, awake, oriented to person, oriented to place , oriented to time, oriented to situation, CN II-XII grossly intact. ABSENT: motor sensory deficit Psychiatric exam: PRESENT: appropriate affect, normal mood. ABSENT: homicidal ideation, suicidal ideation Skin exam: PRESENT: dry, intact, warm. ABSENT: cyanosis, rash Results Laboratory Results: 05/19/18 04:19 05/19/18 04:19 05/19/18 05/19/18 04:19 04:19 WBC 7.2 RBC 3.29 L Hgb 10.0 L Hct 30.7 L MCV 93 MCH 30.4 MCHC 32.6 RDW 14.6 H Plt Count 386 Seg Neutrophils % 50.3 Lymphocytes % 32.4 Monocytes % 12.1 Eosinophils % 4.4 Basophils % 0.8 Absolute Neutrophils 3.6 Absolute Lymphocytes 2.3 Absolute Monocytes 0.9 Absolute Eosinophils 0.3 Absolute Basophils 0.1 Sodium 141.8 Potassium 3.5 L Chloride 107 Carbon Dioxide 25 Anion Gap 10 BUN 2 L Creatinine 0.56 Est GFR ( Amer) > 60 Est GFR (Non-Af Amer) > 60 Glucose 102 Calcium 8.8 Impressions: Chest X-Ray 05/14/18 19:40 IMPRESSION: NO ACUTE RADIOGRAPHIC FINDING IN THE CHEST. Assessment & Plan - Diagnosis (1) COPD with hypoxia Is this a current diagnosis for this admission?: Yes (2) Hypotension Qualifiers: Hypotension type: hypotension due to hypovolemia Qualified Code(s): I95.89 - Other hypotension; E86.1 - Hypovolemia; E86.1 - Hypovolemia Is this a current diagnosis for this admission?: Yes (3) Orthostasis Is this a current diagnosis for this admission?: Yes (4) Breast cancer Is this a current diagnosis for this admission?: No (5) Hypokalemia due to loss of potassium Is this a current diagnosis for this admission?: Yes - Time Time Spent with patient: 15-24 minutes Medications reviewed and adjusted accordingly: Yes Anticipated discharge: Other Within: Other - Inpatient Certification Based on my medical assessment, after consideration of the patient's comorbidities, presenting symptoms, or acuity I expect that the services needed warrant INPATIENT care.: Yes I certify that my determination is in accordance with my understanding of Medicare's requirements for reasonable and necessary INPATIENT services [42 CFR 412.3e].: Yes Medical Necessity: Need Close Monitoring Due to Risk of Patient Decompensation, Need For IV Fluids 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
[2018-05-19] MEDS: MAGNESIUM OXIDE 400 MG TABLET PO SCH (09:38)
[2018-05-19] MEDS: FERROUS SULFATE 325 MG TABLET PO SCH (09:38)
[2018-05-19] MEDS: DIGOXIN 0.125 MG TABLET PO SCH (09:40)
[2018-05-19] MEDS: ANASTROZOLE 1 MG TABLET PO SCH (09:43)
[2018-05-19] MEDS: ACETAMINOPHEN 325 MG TABLET PO PRN ×2 (12:16→22:57)
[2018-05-19] MEDS: DILTIAZEM HCL 120 MG CAP.SR.24H PO SCH ×2 (12:17→22:56)
[2018-05-19] MEDS: BUDESONIDE/FORMOTEROL 160-4.5 MCG 60 PUFF/6 GM MDI IH SCH ×2 (12:17→22:57)
[2018-05-19] MEDS: TIOTROPIUM BROMIDE DPI 5 CAP/KIT (18 MCG/CAP) IH SCH (12:17)
[2018-05-19] MEDS: MONTELUKAST SODIUM 10 MG TABLET PO SCH (17:10)
[2018-05-19] MEDS: RIVAROXABAN 10 MG TABLET PO SCH (17:10)
[2018-05-20] MEDS: LEVALBUTEROL HCL NEB 1.25 MG/3 ML AMPUL NEB SCH ×6 (00:03→20:07)
[2018-05-20] MEDS: LANSOPRAZOLE 30 MG TAB.RAP.DR PO SCH (06:16)
[2018-05-20] MEDS: DRONEDARONE HYDROCHLORIDE 400 MG TABLET PO SCH ×2 (06:16→17:33)
[2018-05-20 06:38] LABS: ANION GAP 8 (5-19); BLOOD UREA NITROGEN 3 mg/dL (7-20); CALCIUM 8.8 mg/dL (8.4-10.2); CARBON DIOXIDE 26 mmol/L (22-30); CHLORIDE 108 mmol/L (98-107); GLUCOSE 79 mg/dL (75-110); POTASSIUM 3.7 mmol/L (3.6-5.0)
--- NOTE | 2018-05-20 08:57 | PDOC PROGRESS REPORT ---
Subjective Progress Note for:: 05/20/18 Subjective:: Patient is currently doing fair denied any chest pain to than any shortness of breath Patient's blood pressure is 100 systolic Reason For Visit: SYMPTOMATIC HYPOTENSION WITH ORTHOSIS;HYPOKALEMIA Physical Exam Vital Signs: Temp Pulse Resp BP Pulse Ox 98.7 F 90 16 100/66 100 05/20/18 07:58 05/20/18 07:58 05/20/18 07:58 05/20/18 07:58 05/20/18 07:58 Intake & Output 05/19/18 05/20/18 05/21/18 06:59 06:59 06:59 Intake Total 1880 885 Output Total 1402 650 Balance 478 235 Weight 57.4 kg 60.4 kg General appearance: PRESENT: no acute distress, well-developed, well-nourished Head exam: PRESENT: atraumatic, normocephalic Eye exam: PRESENT: conjunctiva pink, EOMI, PERRLA. ABSENT: scleral icterus Ear exam: PRESENT: normal external ear exam Mouth exam: PRESENT: moist, tongue midline Neck exam: PRESENT: full ROM. ABSENT: carotid bruit, JVD, lymphadenopathy, thyromegaly Respiratory exam: PRESENT: clear to auscultation darinel Cardiovascular exam: PRESENT: RRR. ABSENT: diastolic murmur, rubs, systolic murmur Pulses: PRESENT: normal dorsalis pedis pul, +2 pedal pulses bilateral Vascular exam: PRESENT: normal capillary refill GI/Abdominal exam: PRESENT: normal bowel sounds, soft. ABSENT: distended, guarding, mass, organolmegaly, rebound, tenderness Rectal exam: PRESENT: deferred Neurological exam: PRESENT: alert, awake, oriented to person, oriented to place , oriented to time, oriented to situation, CN II-XII grossly intact. ABSENT: motor sensory deficit Psychiatric exam: PRESENT: appropriate affect, normal mood. ABSENT: homicidal ideation, suicidal ideation Skin exam: PRESENT: dry, intact, warm. ABSENT: cyanosis, rash Results Laboratory Results: 05/19/18 04:19 05/20/18 05:15 05/20/18 05:15 Sodium 142.0 Potassium 3.7 Chloride 108 H Carbon Dioxide 26 Anion Gap 8 BUN 3 L Creatinine 0.57 Est GFR ( Amer) > 60 Est GFR (Non-Af Amer) > 60 Glucose 79 Calcium 8.8 Impressions: Chest X-Ray 05/14/18 19:40 IMPRESSION: NO ACUTE RADIOGRAPHIC FINDING IN THE CHEST. Assessment & Plan - Diagnosis (1) COPD with hypoxia Is this a current diagnosis for this admission?: Yes (2) Hypotension Qualifiers: Hypotension type: hypotension due to hypovolemia Qualified Code(s): I95.89 - Other hypotension; E86.1 - Hypovolemia; E86.1 - Hypovolemia Is this a current diagnosis for this admission?: Yes (3) Orthostasis Is this a current diagnosis for this admission?: Yes (4) Breast cancer Is this a current diagnosis for this admission?: No (5) Hypokalemia due to loss of potassium Is this a current diagnosis for this admission?: Yes - Time Time Spent with patient: 15-24 minutes Medications reviewed and adjusted accordingly: Yes Anticipated discharge: Other Within: Other - Inpatient Certification Based on my medical assessment, after consideration of the patient's comorbidities, presenting symptoms, or acuity I expect that the services needed warrant INPATIENT care.: Yes I certify that my determination is in accordance with my understanding of Medicare's requirements for reasonable and necessary INPATIENT services [42 CFR 412.3e].: Yes Medical Necessity: Significant Comorbidiites Make Outpatient Treatment Too Risky 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
[2018-05-20] MEDS: DILTIAZEM HCL 120 MG CAP.SR.24H PO SCH ×2 (10:06→22:24)
[2018-05-20] MEDS: FERROUS SULFATE 325 MG TABLET PO SCH (10:07)
[2018-05-20] MEDS: DIGOXIN 0.125 MG TABLET PO SCH (10:07)
[2018-05-20] MEDS: MAGNESIUM OXIDE 400 MG TABLET PO SCH (10:07)
[2018-05-20] MEDS: TIOTROPIUM BROMIDE DPI 5 CAP/KIT (18 MCG/CAP) IH SCH (10:08)
[2018-05-20] MEDS: BUDESONIDE/FORMOTEROL 160-4.5 MCG 60 PUFF/6 GM MDI IH SCH ×2 (10:09→22:24)
[2018-05-20] MEDS: ANASTROZOLE 1 MG TABLET PO SCH (10:09)
[2018-05-20] MEDS: ACETAMINOPHEN 325 MG TABLET PO PRN ×3 (10:11→22:23)
[2018-05-20] MEDS: NORMAL SALINE 1000 ML 1,000 ML IV PRN (10:14)
[2018-05-20] MEDS: MONTELUKAST SODIUM 10 MG TABLET PO SCH (17:33)
[2018-05-20] MEDS: RIVAROXABAN 10 MG TABLET PO SCH (17:34)
[2018-05-21] MEDS: LEVALBUTEROL HCL NEB 1.25 MG/3 ML AMPUL NEB SCH ×6 (00:06→20:12)
[2018-05-21] MEDS: NORMAL SALINE 1000 ML 1,000 ML IV PRN (05:09)
[2018-05-21] MEDS: LANSOPRAZOLE 30 MG TAB.RAP.DR PO SCH (05:09)
[2018-05-21] MEDS: DRONEDARONE HYDROCHLORIDE 400 MG TABLET PO SCH ×2 (05:09→18:19)
[2018-05-21 05:46] LABS: ANION GAP 8 (5-19); BLOOD UREA NITROGEN 3 mg/dL (7-20); CALCIUM 8.7 mg/dL (8.4-10.2); CARBON DIOXIDE 25 mmol/L (22-30); CHLORIDE 109 mmol/L (98-107); GLUCOSE 85 mg/dL (75-110); POTASSIUM 3.9 mmol/L (3.6-5.0); SODIUM 141.9 mmol/L (137-145)
[2018-05-21] MEDS: DILTIAZEM HCL 120 MG CAP.SR.24H PO SCH ×2 (09:25→22:16)
[2018-05-21] MEDS: DIGOXIN 0.125 MG TABLET PO SCH (09:25)
[2018-05-21] MEDS: MAGNESIUM OXIDE 400 MG TABLET PO SCH (09:25)
[2018-05-21] MEDS: FERROUS SULFATE 325 MG TABLET PO SCH (09:25)
[2018-05-21] MEDS: TIOTROPIUM BROMIDE DPI 5 CAP/KIT (18 MCG/CAP) IH SCH (09:25)
[2018-05-21] MEDS: BUDESONIDE/FORMOTEROL 160-4.5 MCG 60 PUFF/6 GM MDI IH SCH ×2 (09:26→22:16)
[2018-05-21] MEDS: ANASTROZOLE 1 MG TABLET PO SCH (09:27)
[2018-05-21] MEDS: MONTELUKAST SODIUM 10 MG TABLET PO SCH (18:19)
[2018-05-21] MEDS: RIVAROXABAN 10 MG TABLET PO SCH (18:19)
[2018-05-22] MEDS: LEVALBUTEROL HCL NEB 1.25 MG/3 ML AMPUL NEB SCH ×3 (00:30→08:17)
[2018-05-22] MEDS: LANSOPRAZOLE 30 MG TAB.RAP.DR PO SCH (06:00)
[2018-05-22] MEDS: DRONEDARONE HYDROCHLORIDE 400 MG TABLET PO SCH (06:00)
[2018-05-22 08:13] VITALS: BP 98/62
[2018-05-22] MEDS: BUDESONIDE/FORMOTEROL 160-4.5 MCG 60 PUFF/6 GM MDI IH SCH (11:06)
[2018-05-22] MEDS: TIOTROPIUM BROMIDE DPI 5 CAP/KIT (18 MCG/CAP) IH SCH (11:07)
[2018-05-22] MEDS: DILTIAZEM HCL 120 MG CAP.SR.24H PO SCH (11:08)
[2018-05-22] MEDS: FERROUS SULFATE 325 MG TABLET PO SCH (11:08)
[2018-05-22] MEDS: MAGNESIUM OXIDE 400 MG TABLET PO SCH (11:08)
[2018-05-22] MEDS: ANASTROZOLE 1 MG TABLET PO SCH (11:08)
[2018-05-22] MEDS: DIGOXIN 0.125 MG TABLET PO SCH (11:08)
--- NOTE | 2018-05-22 19:45 | PDOC PROGRESS REPORT ---
Subjective Progress Note for:: 05/21/18 Subjective:: Patient denied any chest pain. Breathing remain labored off supplemental oxygen. No nausea, vomiting or abdominal pain. No recurrent nasal bleeding. Reason For Visit: SYMPTOMATIC HYPOTENSION WITH ORTHOSIS;HYPOKALEMIA Physical Exam Vital Signs: Temp Pulse Resp BP Pulse Ox 99.0 F 92 16 110/62 97 05/21/18 03:50 05/21/18 08:21 05/21/18 08:21 05/21/18 03:50 05/21/18 08:21 Intake & Output 05/20/18 05/21/18 05/22/18 06:59 06:59 06:59 Intake Total 1885 2240 Output Total 650 Balance 1235 2240 Weight 60.4 kg 61.6 kg Physical Exam: General appearance: PRESENT: mild distress - on supplemental oxygen via nasal cannula Head exam: PRESENT: atraumatic, normocephalic Eye exam: PRESENT: conjunctiva pink, EOMI, PERRLA. ABSENT: scleral icterus Ear exam: PRESENT: TM's normal bilaterally Mouth exam: PRESENT: moist Respiratory exam: PRESENT: clear to auscultation darinel, decreased breath sounds - at lung bases Cardiovascular exam: PRESENT: RRR. ABSENT: diastolic murmur, rubs, systolic murmur Vascular exam: ABSENT: pallor GI/Abdominal exam: PRESENT: normal bowel sounds, soft. ABSENT: distended, guarding, mass, organomegaly, rebound, tenderness Extremities exam: ABSENT: joint swelling, pedal edema Musculoskeletal exam: PRESENT: ambulatory - limited due to exertional dyspnea Neurological exam: PRESENT: alert, awake, oriented to person, oriented to place , oriented to time, oriented to situation, CN II-XII grossly intact. ABSENT: motor sensory deficit Psychiatric exam: PRESENT: appropriate affect, normal mood. ABSENT: homicidal ideation, suicidal ideation Skin exam: PRESENT: dry, intact, warm. ABSENT: cyanosis, rash Results Laboratory Results: 05/19/18 04:19 05/21/18 04:50 05/21/18 04:50 Sodium 141.9 Potassium 3.9 Chloride 109 H Carbon Dioxide 25 Anion Gap 8 BUN 3 L Creatinine 0.58 Est GFR ( Amer) > 60 Est GFR (Non-Af Amer) > 60 Glucose 85 Calcium 8.7 Impressions: Chest X-Ray 11/19/18 19:40 IMPRESSION: NO ACUTE RADIOGRAPHIC FINDING IN THE CHEST. Assessment & Plan - Diagnosis (1) Orthostasis Is this a current diagnosis for this admission?: Yes (2) Hypotension Qualifiers: Hypotension type: hypotension due to hypovolemia Qualified Code(s): I95.89 - Other hypotension; E86.1 - Hypovolemia; E86.1 - Hypovolemia Is this a current diagnosis for this admission?: Yes (3) Hypokalemia due to loss of potassium Is this a current diagnosis for this admission?: Yes (4) COPD with hypoxia Is this a current diagnosis for this admission?: Yes - Time Time Spent with patient: 25-34 minutes Medications reviewed and adjusted accordingly: Yes Anticipated discharge: Home with Homehealth Within: Other - Inpatient Certification Based on my medical assessment, after consideration of the patient's comorbidities, presenting symptoms, or acuity I expect that the services needed warrant INPATIENT care.: Yes I certify that my determination is in accordance with my understanding of Medicare's requirements for reasonable and necessary INPATIENT services [42 CFR 412.3e].: Yes Medical Necessity: Need Close Monitoring Due to Risk of Patient Decompensation, Need For Continuous Telemetry Monitoring, Need for Nebulizer Therapy and Monitoring of Response, Risk of Complication if Not Cared For in Hospital 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 Possible discharge home tomorrow if patient continue to improve with resolution of orthostasis.
--- NOTE | 2018-05-22 19:52 | PDOC DISCHARGE SUMMARY ---
General - Admit/Disc Date/PCP Admission Date/Primary Care Provider: 05/17/18 20:27 LUKASZ CECI Discharge Date: 05/22/18 - Discharge Diagnosis (1) Orthostasis Is this a current diagnosis for this admission?: Yes (2) Hypotension Is this a current diagnosis for this admission?: Yes (3) Hypokalemia due to loss of potassium Is this a current diagnosis for this admission?: Yes (4) COPD with hypoxia Is this a current diagnosis for this admission?: Yes - Additional Information Prescriptions: Magnesium Oxide [Mag-Ox 400 mg Tablet] 400 mg PO DAILY #30 tablet Home Medications: Albuterol Sulfate [Proair HFA Inhalation Aerosol 8.5 gm MDI] 2 puff IH Q4HP PRN 05/15/18 Anastrozole [Arimidex 1 mg Tablet] 1 mg PO DAILY 05/15/18 Azelastine HCl 2 spray NASL BID 05/15/18 Benzonatate [Tessalon Perle 100 mg Capsule] 200 mg PO TIDP PRN 05/15/18 Budesonide/Formoterol Fumarate [Symbicort HFA 160-4.5 mcg Inhaler 6 gm] 2 puff IH BID 05/15/18 Digoxin [Lanoxin 0.125 mg Tablet] 0.125 mg PO DAILY 05/15/18 Diltiazem HCl [Cardizem Cd 180 mg Capsule] 180 mg PO Q12 05/15/18 Dronedarone Hydrochloride [Multaq 400 mg Tablet] 400 mg PO BID 05/15/18 Ferrous Sulfate [Feosol 325 mg Tablet] 325 mg PO DAILY 05/15/18 Lansoprazole [Prevacid] 30 mg PO DAILY 05/15/18 Levalbuterol HCl [Xopenex Neb 1.25 mg/3 ml Ampul] 1.25 mg NEB RTQ4 05/15/18 Linaclotide [Linzess 145 Mcg Capsule] 145 mcg PO DAILY 05/15/18 Montelukast Sodium [Singulair 10 mg Tablet] 10 mg PO QPM 05/15/18 Rivaroxaban [Xarelto] 20 mg PO WSUPPER 05/15/18 Tiotropium [place] [Spiriva Handihaler 5 Cap/Kit (18 Mcg/Cap)] 1 cap IH DAILY Magnesium Oxide [Mag-Ox 400 mg Tablet] 400 mg PO DAILY #30 tablet 05/22/18 History of Present Illness Patient complains of: Not feeling well History of Present Illness: ARIELLA JUAREZ is a 53 year old female known to my practice who presented to the ED with compliant of generally not feeling well for couple of days. She denied any associated chest pain or palpitation but reported shortness of breath. She admitted to poor appetite and oral intake. No nausea, vomiting, diarrhea, or abdominal pain. She denied any fever or chills. No dysuria, hematuria or flank pain. she reported compliance with her medications. Her initial evaluation in the ED was remarkable for demonstrable orthostasis with tachycardia and hypotension. She was advised hospitalization due to symptomatic hypotension. Hospital Course Hospital Course: She was managed with medication adjustment with regard to anti HTN medication n d supported with IV Normal saline infusion. Her persistent tachycardia warrant restarting her Diltiazem therapy. She remain of Lasix and Lisinopril therapy while on admission. Her stay was compounded by episodes of nasal bleeding and presence of blood in her sputum for a brief period. She has maintain fairly stable clinical status for 48 hours but remain on baseline supplemental oxygen via nasal cannula for her end stage chronic pulmonary disease. She will be discharged home today and follow up in the office as instructed upon discharge. Physical Exam Vital Signs: Temp Pulse Resp BP Pulse Ox 98.6 F 97 17 98/62 L 97 05/22/18 07:59 05/22/18 07:59 05/22/18 07:59 05/22/18 07:59 05/22/18 07:59 Intake & Output 05/21/18 05/22/18 05/23/18 06:59 06:59 06:59 Intake Total 2240 975 Output Total 300 Balance 2240 675 Weight 61.6 kg 61 kg Physical Exam: General appearance: PRESENT: mild distress - on supplemental oxygen via nasal cannula Head exam: PRESENT: atraumatic, normocephalic Eye exam: PRESENT: conjunctiva pink, EOMI, PERRLA. ABSENT: scleral icterus Ear exam: PRESENT: TM's normal bilaterally Mouth exam: PRESENT: moist Respiratory exam: PRESENT: clear to auscultation darinel, decreased breath sounds - at lung bases Cardiovascular exam: PRESENT: RRR. ABSENT: diastolic murmur, rubs, systolic murmur Vascular exam: PRESENT: normal capillary refill. ABSENT: pallor GI/Abdominal exam: PRESENT: normal bowel sounds, soft. ABSENT: distended, guarding, mass, organomegaly, rebound, tenderness Extremities exam: ABSENT: joint swelling, pedal edema Musculoskeletal exam: PRESENT: ambulatory - limited due to exertional dyspnea Neurological exam: PRESENT: alert, awake, oriented to person, oriented to place , oriented to time, oriented to situation, CN II-XII grossly intact. ABSENT: motor sensory deficit Psychiatric exam: PRESENT: appropriate affect, normal mood. ABSENT: homicidal ideation, suicidal ideation Skin exam: PRESENT: dry, intact, warm. ABSENT: cyanosis, rash Results Laboratory Results: 05/19/18 04:19 05/21/18 04:50 Impressions: Chest X-Ray 05/14/18 19:40 IMPRESSION: NO ACUTE RADIOGRAPHIC FINDING IN THE CHEST. Qualifiers - * PATIENT BEING DISCHARGED WITH ANY OF THE FOLLOWING DIAGNOSIS: No Plan Discharge Plan: D/C home today with [employer] services. Follow up in the office as instructed upon discharge.
== END 2018-05-22 13:00 | disposition home health service (06) | DRG 312 ==
LOC: ER 18:12 → OBSVTOIN 23:48 → INTOOBSV 23:48 → EH 23:48 → 3W 05-15 01:19 → OBSVTOIN 05-17 20:27
PROVIDERS: ADMIT Internal Medicine Geriatric Medicine; ATTEND Internal Medicine Geriatric Medicine
PROC: 3E0F73Z Introduction of Anti-inflammatory into Respiratory Tract, Via Natural or Artificial Opening (ICD-10-PCS; principal; 2018-05-15)
DX: I95.1 Orthostatic hypotension (principal); I69.354 Hemiplegia and hemiparesis following cerebral infarction affecting left non-dominant side; E87.6 Hypokalemia; E83.42 Hypomagnesemia; J44.9 Chronic obstructive pulmonary disease, unspecified; R09.02 Hypoxemia; E78.00 Pure hypercholesterolemia, unspecified; K21.9 Gastro-esophageal reflux disease without esophagitis; F32.9 Major depressive disorder, single episode, unspecified; E86.1 Hypovolemia; Z96.612 Presence of left artificial shoulder joint; C44.501 Unspecified malignant neoplasm of skin of breast; E86.0 Dehydration; Z79.899 Other long term (current) drug therapy; Z90.13 Acquired absence of bilateral breasts and nipples; Z88.8 Allergy status to other drugs, medicaments and biological substances; Z82.49 Family history of ischemic heart disease and other diseases of the circulatory system
CPT/HCPCS: 36415; 51701; 71045; 80048; 80053; 81001; 82550; 82553; 82803; 83605; 83690; 83735; 83880; 84484; 85025; 93005; 93010; 94640; 96360; 96361; 99285; G0378; J2405; J3475; J3490; J7030

== ENCOUNTER 2018-06-15 07:13 | Inpatient (IN) | payer MEDICARE, MEDICAID ==
--- NOTE | 2018-06-15 07:55 | EKG REPORT ---
SEVERITY:- ABNORMAL ECG - SINUS TACHYCARDIA NONSPECIFIC T ABNORMALITIES, ANT-LAT LEADS BORDERLINE PROLONGED QT INTERVAL : Confirmed by: Harvinder Allison MD 15-Jun-2018 07:54:40
--- NOTE | 2018-06-15 07:56 | ER Document Report ---
ED General - General Chief Complaint: Chest Pain Stated Complaint: CHEST PAIN Time Seen by Provider: 06/15/18 07:41 Mode of Arrival: Wheelchair Information source: Patient, Relative TRAVEL OUTSIDE OF THE [place] IN LAST 30 DAYS: No - HPI Patient complains to provider of: chest pain Onset: Other - 33-year-old woman with a history of COPD as well as hypertension CVA in the past that presents for evaluation of cough shortness of breath and worsening chest pain since yesterday. She notes that the chest pain worsened this morning and is intensified by lying flat. She is never had anything like this before though she did think it could possibly be pneumonia as she has had issues with that in the past. Nothing is a seemed to make it any better. She is not taking anything to try and help make it better. - Related Data Allergies/Adverse Reactions: prednisone [Prednisone] Adverse Reaction (Intermediate, Verified 11/21/17 18:46) Past Medical History - General Information source: Patient, Relative - Social History Smoking Status: Former Smoker Smoking Education Provided: Yes Drug Abuse: None Family History: Hypertension - Past Medical History Cardiac Medical History: Reports: Hx Congestive Heart Failure, Hx Hypercholesterolemia Denies: Hx Coronary Artery Disease, Hx Heart Attack, Hx Hypertension Pulmonary Medical History: Reports: Hx Asthma, Hx Bronchitis, Hx COPD, Hx Pneumonia Denies: Hx Respiratory Failure, Hx Sleep Apnea, Hx Tuberculosis Neurological Medical History: Reports: Hx Cerebrovascular Accident - WEAKNESS ON LEFT SIDE. Denies: Hx Seizures Endocrine Medical History: Renal/ Medical History: Reports: Hx Ovarian Cysts. Denies: Hx Peritoneal Dialysis Malignancy Medical History: Reports: Hx Breast Cancer GI Medical History: Reports: Hx Gastroesophageal Reflux Disease, Hx Hiatal Hernia Musculoskeletal Medical History: Denies Hx Arthritis, Denies Hx Multiple Sclerosis Psychiatric Medical History: Reports: Hx Depression Denies: Hx Dementia Infectious Medical History: Past Surgical History: Reports: Hx Mastectomy - bilat 2010, Hx Orthopedic Surgery - left shoulder replacement 09/10. Denies: Hx Hysterectomy, Hx Pacemaker - Immunizations Hx Diphtheria, Pertussis, Tetanus Vaccination: No Hx Pneumococcal Vaccination: 06/26/11 Review of Systems - Review of Systems -: Yes All other systems reviewed and negative Physical Exam - Vital signs Vitals: Temp Pulse Resp BP Pulse Ox 99.5 F 105 H 18 97/59 L 90 L 06/15/18 07:28 06/15/18 07:28 06/15/18 07:28 06/15/18 07:28 06/15/18 07:28 - General General appearance: Alert In distress: Mild - HEENT Head: Normocephalic Eyes: Normal Conjunctiva: Normal Cornea: Normal Extraocular movements intact: Yes Eyelashes: Normal Pupils: PERRL - Respiratory Respiratory status: Tachypnea Chest status: Tender Breath sounds: Wheezing - Wheezing in all lung alonzo Chest palpation: Other - Tenderness to palpation along left chest wall - Cardiovascular Rhythm: Regular Heart sounds: Normal auscultation Murmur: No - Abdominal Inspection: Normal Distension: No distension Bowel sounds: Normal Tenderness: Nontender Organomegaly: No organomegaly - Back Back: Normal, Nontender - Extremities General upper extremity: Normal inspection, Nontender, Normal color, Normal ROM, Normal temperature General lower extremity: Normal inspection, Nontender, Normal color, Normal ROM, Normal temperature, Normal weight bearing. No: Oscar's sign - Neurological Neuro grossly intact: Yes Cognition: Normal Orientation: AAOx4 Bluebell Coma Scale Eye Opening: Spontaneous Billy Coma Scale Verbal: Oriented Bluebell Coma Scale Motor: Obeys Commands Billy Coma Scale Total: 15 Speech: Normal Motor strength normal: LUE, RUE, LLE, RLE Sensory: Normal - Psychological Associated symptoms: Normal affect, Normal mood Course - Re-evaluation Re-evalutation: 06/15/18 07:55 This 53-year-old woman with COPD presents for pain in the left side of the chest. She is endorsed a cough over the last several days and now worsening chest tigh tness. On examination she is in some discomfort with audible wheezes in all lung alonzo. She notes that she wanted to get here in a hurry this morning so she did not put on her oxygen as she usually does, normally she wears 2 L at all times. She is able to maintain a normal saturation on room air without oxygen. We will obtain a broad workup, given that her temperature is approximately 100 degrees willing to include possible infectious etiologies such as pneumonia, influenza. We will also obtain cardiac markers troponin x2 EKG cardiac monitoring chest x- ray. Patient with persistent pain, has prominent hypokalemia. No obvious EKG changes attributable thereto. Negative troponin. Chest x-ray does not demonstrate any obvious pneumonia. Believe that this patient likely has a COPD exacerbation. As such we will pursue aggressive treatment thereof, will administer steroids, azithromycin, nebulizations. Have contacted Dr. Ornelas for evaluation and admission of this patient he agrees to admission of this patient. Have initiated oral resuscitation of patient's potassium. - Vital Signs Vital signs: Temp Pulse Resp BP Pulse Ox 99.5 F 105 H 20 102/72 100 06/15/18 07:28 06/15/18 07:28 06/15/18 13:04 06/15/18 13:04 06/15/18 13:04 - Laboratory Result Diagrams: 06/15/18 08:30 06/15/18 08:30 Laboratory results interpreted by me: 06/15/18 06/15/18 06/15/18 08:30 08:30 09:45 Hgb 11.7 L Hct 35.6 L RDW 14.8 H Plt Count 471 H Monocytes % 13.9 H Potassium 2.5 L* BUN 6 L AST 37 H Albumin 3.4 L Urine Protein 30 H Urine Ketones TRACE H Urine Blood SMALL H Discharge - Discharge Clinical Impression: Hypokalemia COPD (chronic obstructive pulmonary disease) Qualifiers: COPD type: unspecified COPD Qualified Code(s): J44.9 - Chronic obstructive pu lmonary disease, unspecified Condition: Good Disposition: ADMITTED INPATIENT Admitting Provider: Celsa Unit Admitted: IMCU Referrals: LUKASZ ORNELAS MD [Primary Care Provider] - Follow up as needed
--- NOTE | 2018-06-15 08:14 | RADIOLOGY REPORT (SQ) ---
EXAM DESCRIPTION: CHEST SINGLE VIEW COMPLETED DATE/TIME: 06/15/2018 8:01 am REASON FOR STUDY: chest pain COMPARISON: Chest films 05/14/2018, 02/20/2018, 02/17/2018 CTA chest 02/18/2018 PET-CT 07/23/2017 EXAM PARAMETERS: NUMBER OF VIEWS: One view. TECHNIQUE: Single frontal radiographic view of the chest acquired. RADIATION DOSE: NA LIMITATIONS: None. FINDINGS: LUNGS AND PLEURA: Marked hyperinflation and hyperlucency from obstructive disease. Chroni c scarring with blunting in the left lateral costophrenic sulcus. No acute infiltrates. No pleural effusions. No pneumothorax. MEDIASTINUM AND HILAR STRUCTURES: No masses. Contour normal. HEART AND VASCULAR STRUCTURES: Heart normal in size. Normal vasculature. BONES: Left shoulder replacement HARDWARE: Old surgical clips left axilla OTHER: No other significant finding. IMPRESSION: Obstructive lung disease. No acute findings TECHNICAL DOCUMENTATION: JOB ID: [id number] [employer] All Rights Reserved Reading location - IP/workstation name: [facility] [email or web address]
[2018-06-15] MEDS ORDERED: IPRATROPIUM/ALBUTEROL 0.5-2.5 MG/3 ML AMPUL NEB ONE (08:20)
[2018-06-15 08:49] LABS: VENOUS BLOOD BASE EXCESS 3.6 mmol/L; VENOUS BLOOD PH 7.41 (7.30-7.42)
[2018-06-15 08:58] LABS: ABSOLUTE BASOPHILS # (AUTO) 0.1 10^3/uL (0.0-0.2); ABSOLUTE EOSINOPHILS # (AUTO) 0.2 10^3/uL (0.0-0.6); ABSOLUTE LYMPHOCYTES (AUTO) 1.9 10^3/uL (0.5-4.7); ABSOLUTE MONOCYTES (AUTO) 1.1 10^3/uL (0.1-1.4); ABSOLUTE NEUT (AUTO) 4.8 10^3/uL (1.7-8.2); BASOPHILS % (AUTO) 0.8 % (0-2); EOSINOPHILS % (AUTO) 2.8 % (0-6); HEMATOCRIT 35.6 % (36.0-47.0); HEMOGLOBIN 11.7 g/dL (12.0-15.5); LYMPHOCYTES % (AUTO) 23.5 % (13-45); MEAN CORPUSCULAR HGB CONC 32.9 g/dL (32.0-36.0); MEAN CORPUSCULAR VOLUME 91 fl (80-97); MONOCYTES % (AUTO) 13.9 % (3-13); PLATELET COUNT 471 10^3/uL (150-450); RED BLOOD COUNT 3.91 10^6/uL (3.72-5.28); RED CELL DISTRIBUTION WIDTH 14.8 % (11.5-14.0); TOTAL CELLS COUNTED % (AUTO) 100 %; WHITE BLOOD COUNT 8.1 10^3/uL (4.0-10.5)
[2018-06-15 09:06] LABS: ALANINE AMINOTRANSFERASE 13 U/L (9-52); ALBUMIN 3.4 g/dL (3.5-5.0); ALKALINE PHOSPHATASE 58 U/L (38-126); ANION GAP 7 (5-19); ASPARTATE AMINO TRANSFERASE 37 U/L (14-36); BILIRUBIN,DIRECT 0.3 mg/dL (0.0-0.4); BILIRUBIN,TOTAL 0.9 mg/dL (0.2-1.3); BLOOD UREA NITROGEN 6 mg/dL (7-20); CALCIUM 8.6 mg/dL (8.4-10.2); CARBON DIOXIDE 26 mmol/L (22-30); CHLORIDE 107 mmol/L (98-107); GLUCOSE 92 mg/dL (75-110); SODIUM 140.2 mmol/L (137-145); TOTAL PROTEIN 6.9 g/dL (6.3-8.2)
[2018-06-15 09:12] LABS: POTASSIUM 2.5 mmol/L (3.6-5.0)
[2018-06-15 09:17] LABS: NT PRO BNP 667 pg/mL (5-900)
[2018-06-15 09:22] LABS: TROPONIN I < 0.012 ng/mL
[2018-06-15 09:37] LABS: A TYPE INFLUENZA AG NEGATIVE (NEGATIVE); B INFLUENZA AG NEGATIVE (NEGATIVE)
[2018-06-15 10:13] LABS: APPEARANCE,URINE SLIGHTLY-CLOUDY; BILIRUBIN,URINE NEGATIVE (NEGATIVE); GLUCOSE, URINE NEGATIVE (NEGATIVE); KETONES,URINE TRACE mg/dL (NEGATIVE); LEUKOCYTE ESTERASE,URINE NEGATIVE (NEGATIVE); NITRITE,URINE NEGATIVE (NEGATIVE); PROTEIN,URINE 30 mg/dL (NEGATIVE); URINE SPECIFIC GRAVITY 1.019; UROBILINOGEN,URINE NEGATIVE mg/dL (<2.0)
[2018-06-15 10:16] LABS: COLOR,URINE YELLOW
[2018-06-15] MEDS ORDERED: POTASSIUM CHLORIDE 20 MEQ/15 ML UDCUP PO ONE (11:04)
[2018-06-15] MEDS ORDERED: METHYLPREDNISOLONE INJ 125 MG/2 ML SDV IV ONE (11:05)
[2018-06-15] MEDS ORDERED: AZITHROMYCIN INJ 500 MG VIAL IV ONE (11:05)
--- NOTE | 2018-06-15 17:57 | PDOC H&P ---
History of Present Illness Admission Date/PCP: 06/15/18 11:52 LUKASZ ORNELAS Patient complains of: worsening difficulty with breathing History of Present Illness: ARIELLA JUAREZ is a 53 year old female known to my practice with history of oxygen dependent end stage COPD who presented to the Ed with complaint of worsening difficulty with breathing and productive cough. She described sputum as greenish in color. No associated blood or brownish discoloration to her sputum. Patient reported onset of symptoms couple of days ago. She denied fever but admitted to chills. There is associated chest pain with coughing. She denied ongoing cigarette smoking. She has prior history of intubation due to COPD exacerbation. Her initial evaluation in the ED was significant for low grade fever and hypokalemia. There was concern for exacerbated COPD and associated i nfectious process for which she was advised hospitalization. Her morbidities include breast cancer s/p bilateral mastectomy, COPD, Hypertension, CHF, Hyperlipidemia, GERD, and Depression. Past Medical History Cardiac Medical History: Reports: Congestive Heart Failure, Hyperlipidema Denies: Coronary Artery Disease, Myocardial Infarction, Hypertension Pulmonary Medical History: Reports: Asthma, Bronchitis, Chronic Obstructive Pulmonary Disease (COPD), Pneumonia Denies: Respiratory Failure, Sleep Apnea, Tuberculosis Neurological Medical History: Denies: Seizures Endocrine Medical History: Malignancy Medical History: Reports: Breast Cancer GI Medical History: Reports: Gastroesophageal Reflux Disease, Hiatal Hernia Musculoskeltal Medical History: Denies: Arthritis Psychiatric Medical History: Reports: Depression Denies: Dementia Hematology: Denies: Anemia Past Surgical History Past Surgical History: Reports: Mastectomy - bilat 2010, Orthopedic Surgery - left shoulder replacement 09/10 Denies: Hysterectomy, Pacemaker Social History Smoking Status: Former Smoker Frequency of Alcohol Use: Social Hx Recreational Drug Use: No Drugs: None Hx Prescription Drug Abuse: No - Advance Directive Resuscitation Status: Full Code Family History Family History: Hypertension Parental Family History Reviewed: Yes Children Family History Reviewed: Yes Sibling(s) Family History Reviewed.: Yes Medication/Allergy Home Medications: Albuterol Sulfate [Proair HFA Inhalation Aerosol 8.5 gm MDI] 2 puff IH Q4HP PRN 06/15/18 Anastrozole [Arimidex 1 mg Tablet] 1 mg PO DAILY 06/15/18 Budesonide/Formoterol Fumarate [Symbicort HFA 160-4.5 mcg Inhaler 6 gm] 2 puff IH Q12 06/15/18 Diltiazem HCl [Cartia Xt] 120 mg PO DAILY 06/15/18 Ferrous Sulfate [Feosol 325 mg Tablet] 325 mg PO DAILY 06/15/18 Lansoprazole 30 mg PO Q6AM 06/15/18 Lisinopril [Prinivil 10 mg Tablet] 10 mg PO DAILY 06/15/18 Magnesium Oxide [Mag-Ox 400 mg Tablet] 400 mg PO DAILY 06/15/18 Metoprolol Succinate [Toprol Xl] 25 mg PO Q12 06/15/18 Montelukast Sodium [Singulair 10 mg Tablet] 10 mg PO QPM 06/15/18 Rivaroxaban [Xarelto] 20 mg PO WSUPPER 06/15/18 Tiotropium Graff [Spiriva Respimat] 2 spray NASL DAILY 06/15/18 Allergies/Adverse Reactions: prednisone [Prednisone] Adverse Reaction (Intermediate, Verified 11/21/17 18:46) Physical Exam Vital Signs: Temp Pulse Resp BP Pulse Ox 98.6 F 90 18 106/62 98 06/15/18 15:03 06/15/18 15:06 06/15/18 15:03 06/15/18 15:03 06/15/18 15:03 Intake & Output 06/14/18 06/15/18 06/16/18 06:59 06:59 06:59 Weight 54.2 kg General appearance: PRESENT: mild distress - remainon supplemental oxygen at 2L/min via nasal cannula., thin Head exam: PRESENT: atraumatic, normocephalic Eye exam: PRESENT: conjunctiva pink, EOMI, PERRLA. ABSENT: scleral icterus Ear exam: PRESENT: normal external ear exam Mouth exam: PRESENT: moist Teeth exam: PRESENT: edentulous Neck exam: PRESENT: full ROM. ABSENT: carotid bruit, JVD, lymphadenopathy, thyromegaly Respiratory exam: PRESENT: decreased breath sounds, prolonged expiratory phas, rhonchi, wheezes Cardiovascular exam: PRESENT: RRR. ABSENT: diastolic murmur, rubs, systolic murmur Pulses: PRESENT: +2 pedal pulses bilateral Vascular exam: PRESENT: normal capillary refill. ABSENT: pallor GI/Abdominal exam: PRESENT: normal bowel sounds, soft. ABSENT: distended, guarding, mass, organolmegaly, rebound, tenderness Rectal exam: PRESENT: deferred Extremities exam: ABSENT: pedal edema Musculoskeletal exam: PRESENT: normal inspection Neurological exam: PRESENT: alert, awake, oriented to person, oriented to place, oriented to time, oriented to situation, CN II-XII grossly intact. ABSENT: motor sensory deficit Skin exam: PRESENT: dry, intact, warm. ABSENT: cyanosis, rash Results Laboratory Results: 06/15/18 08:30 06/15/18 08:30 06/15/18 06/15/18 06/15/18 08:30 08:30 08:30 WBC 8.1 RBC 3.91 Hgb 11.7 L Hct 35.6 L MCV 91 MCH 30.0 MCHC 32.9 RDW 14.8 H Plt Count 471 H Seg Neutrophils % 59.0 Lymphocytes % 23.5 Monocytes % 13.9 H Eosinophils % 2.8 Basophils % 0.8 Absolute Neutrophils 4.8 Absolute Lymphocytes 1.9 Absolute Monocytes 1.1 Absolute Eosinophils 0.2 Absolute Basophils 0.1 VBG pH VBG pCO2 VBG HCO3 VBG Base Excess Sodium 140.2 Potassium 2.5 L* Chloride 107 Carbon Dioxide 26 Anion Gap 7 BUN 6 L Creatinine 0.64 Est GFR ( Amer) > 60 Est GFR (Non-Af Amer) > 60 Glucose 92 Lactic Acid 1.7 Calcium 8.6 Magnesium Total Bilirubin 0.9 AST 37 H ALT 13 Alkaline Phosphatase 58 Total Protein 6.9 Albumin 3.4 L Urine Color Urine Appearance Urine pH Ur Specific [place] Urine Protein Urine Glucose (UA) Urine Ketones Urine Blood Urine Nitrite Ur Leukocyte Esterase Urine WBC (Auto) Urine RBC (Auto) 06/15/18 06/15/18 06/15/18 08:30 08:30 09:45 WBC RBC Hgb Hct MCV MCH MCHC RDW Plt Count Seg Neutrophils % Lymphocytes % Monocytes % Eosinophils % Basophils % Absolute Neutrophils Absolute Lymphocytes Absolute Monocytes Absolute Eosinophils Absolute Basophils VBG pH 7.41 VBG pCO2 47.0 VBG HCO3 29.0 VBG Base Excess 3.6 Sodium Potassium Chloride Carbon Dioxide Anion Gap BUN Creatinine Est GFR ( Amer) Est GFR (Non-Af Amer) Glucose Lactic Acid Calcium Magnesium 1.8 Total Bilirubin AST ALT Alkaline Phosphatase Total Protein Albumin Urine Color YELLOW Urine Appearance SLIGHTLY-CLOUDY Urine pH 6.0 Ur Specific [place] 1.019 Urine Protein 30 H Urine Glucose (UA) NEGATIVE Urine Ketones TRACE H Urine Blood SMALL H Urine Nitrite NEGATIVE Ur Leukocyte Esterase NEGATIVE Urine WBC (Auto) 2 Urine RBC (Auto) 11 06/15/18 06/15/18 08:30 10:52 Troponin I < 0.012 < 0.012 NT-Pro-B Natriuret Pep 667 Impressions: Chest X-Ray 06/15/18 07:49 IMPRESSION: Obstructive lung disease. No acute findings Assessment & Plan - Diagnosis (1) COPD exacerbation Is this a current diagnosis for this admission?: Yes Plan: Maintain on IV Solu Medrol and bronchodilators therapy with gradual tapering and transition to oral route as she improves. (2) Hypokalemia due to loss of potassium Is this a current diagnosis for this admission?: Yes Plan: Probably related to loss and inadequate intake. She will receive IV supplementation through [facility] and we will monitor response via serum level. Monitor for diarrhea or persistent vomiting. (3) Essential hypertension Is this a current diagnosis for this admission?: Yes Plan: Continue her preadmission medication management. (4) HLD (hyperlipidemia) Qualifiers: Hyperlipidemia type: unspecified Qualified Code(s): E78.5 - Hyperlipidemia, unspecified Is this a current diagnosis for this admission?: Yes Plan: Continue her preadmission medication management. (5) GERD (gastroesophageal reflux disease) Qualifiers: Esophagitis presence: without esophagitis Qualified Code(s): K21.9 - Gastro-esophageal reflux disease without esophagitis Is this a current diagnosis for this admission?: Yes Plan: Continue her preadmission medication management. (6) Depression Qualifiers: Depression Type: unspecified Qualified Code(s): F32.9 - Major depressive disorder, single episode, unspecified Is this a current diagnosis for this admission?: Yes Plan: Continue her preadmission medication management. - Time Time Spent: 50 to 70 Minutes Medications reviewed and adjusted accordingly: Yes Anticipated discharge: Home with Homehealth Within: Other - Inpatient Certification Based on my medical assessment, after consideration of the patient's comorbidities, presenting symptoms, or acuity I expect that the services needed warrant INPATIENT care.: Yes I certify that my determination is in accordance with my understanding of Medicare's requirements for reasonable and necessary INPATIENT services [42 CFR 412.3e].: Yes Medical Necessity: Need Close Monitoring Due to Risk of Patient Decompensation, Need For IV Fluids, Need For Continuous Telemetry Monitoring, Need for Nebulizer Therapy and Monitoring of Response, Need for IV Antibiotics, Risk of Co mplication if Not Cared For in Hospital Post Hospital Care: D/C [employer] Documentation - Plan Summary Plan Summary: See admitting attending physician orders as per outlined care plan above.
[2018-06-15] MEDS: METHYLPREDNISOLONE INJ 125 MG/2 ML SDV IV SCH (18:32)
[2018-06-15] MEDS: MONTELUKAST SODIUM 10 MG TABLET PO SCH (18:32)
[2018-06-15] MEDS: METOPROLOL SUCCINATE 25 MG TAB.SR.24H PO SCH (21:55)
[2018-06-16] MEDS: IPRATROPIUM/ALBUTEROL 0.5-2.5 MG/3 ML AMPUL NEB PRN ×2 (00:24→10:44)
[2018-06-16] MEDS: METHYLPREDNISOLONE INJ 125 MG/2 ML SDV IV SCH ×3 (05:18→22:00)
[2018-06-16] MEDS: LANSOPRAZOLE 30 MG TAB.RAP.DR PO SCH (05:18)
[2018-06-16 07:23] LABS: ANION GAP 7 (5-19); BLOOD UREA NITROGEN 8 mg/dL (7-20); CARBON DIOXIDE 26 mmol/L (22-30); CHLORIDE 108 mmol/L (98-107); GLUCOSE 139 mg/dL (75-110); SODIUM 140.6 mmol/L (137-145)
[2018-06-16] MEDS ORDERED: POTASSIUM CHLORIDE 10 MEQ CAPSULE.ER PO ONE (08:00)
[2018-06-16] MEDS: DILTIAZEM HCL 120 MG CAP.SR.24H PO SCH (09:53)
[2018-06-16] MEDS: METOPROLOL SUCCINATE 25 MG TAB.SR.24H PO SCH ×2 (09:53→22:12)
[2018-06-16] MEDS: LISINOPRIL 10 MG TABLET PO SCH (09:53)
[2018-06-16] MEDS: MAGNESIUM OXIDE 400 MG TABLET PO SCH (09:57)
[2018-06-16] MEDS: FERROUS SULFATE 325 MG TABLET PO SCH (09:57)
[2018-06-16] MEDS: ANASTROZOLE 1 MG TABLET PO SCH (09:57)
[2018-06-16] MEDS: AZITHROMYCIN 500 MG in DEXTROSE 5%-WATER 250 ML IV SCH (09:58)
[2018-06-16] MEDS ORDERED: TIOTROPIUM BROMIDE NASL SCH (10:00)
[2018-06-16] MEDS: ACETAMINOPHEN 325 MG TABLET PO PRN ×2 (15:17→22:00)
[2018-06-16] MEDS: RIVAROXABAN 10 MG TABLET PO SCH (16:37)
[2018-06-16] MEDS: BENZONATATE 100 MG CAPSULE PO PRN (16:39)
[2018-06-16] MEDS: MONTELUKAST SODIUM 10 MG TABLET PO SCH (17:44)
--- NOTE | 2018-06-16 17:54 | PDOC PROGRESS REPORT ---
Subjective Progress Note for:: 06/16/18 Subjective:: Patient was seen by the bedside, she was admitted for the management of acute COPD exacerbation, she is still very symptomatic Reason For Visit: EXACERBATED COPD,SEVERE HYPOKALEMIA Physical Exam Vital Signs: Temp Pulse Resp BP Pulse Ox 99.2 F 116 H 16 110/79 98 06/16/18 16:00 06/16/18 16:00 06/16/18 16:00 06/16/18 16:00 06/16/18 16:00 Intake & Output 06/15/18 06/16/18 06/17/18 06:59 06:59 06:59 Intake Total 425 841 Output Total 0 Balance 425 841 Weight 55.8 kg General appearance: PRESENT: mild distress Eye exam: PRESENT: PERRLA Respiratory exam: PRESENT: wheezes Cardiovascular exam: PRESENT: +S1, +S2 GI/Abdominal exam: PRESENT: soft Neurological exam: PRESENT: alert, CN II-XII grossly intact Results Laboratory Results: 06/15/18 08:30 06/16/18 06:50 06/16/18 06:50 Sodium 140.6 Potassium 3.0 L* Chloride 108 H Carbon Dioxide 26 Anion Gap 7 BUN 8 Creatinine 0.50 L Est GFR ( Amer) > 60 Est GFR (Non-Af Amer) > 60 Glucose 139 H Calcium 9.0 06/15/18 06/15/18 08:30 10:52 Troponin I < 0.012 < 0.012 NT-Pro-B Natriuret Pep 667 Impressions: Chest X-Ray 06/15/18 07:49 IMPRESSION: Obstructive lung disease. No acute findings Assessment & Plan - Diagnosis (1) COPD with acute exacerbation Is this a current diagnosis for this admission?: Yes Plan: Continue IV Solu-Medrol, bronchodilators (2) Hypokalemia Is this a current diagnosis for this admission?: Yes
[2018-06-17] MEDS: LANSOPRAZOLE 30 MG TAB.RAP.DR PO SCH (05:28)
[2018-06-17] MEDS: METHYLPREDNISOLONE INJ 125 MG/2 ML SDV IV SCH ×3 (05:28→21:29)
[2018-06-17 07:09] LABS: HEMATOCRIT 31.7 % (36.0-47.0); HEMOGLOBIN 10.3 g/dL (12.0-15.5); MEAN CORPUSCULAR HEMOGLOBIN 29.7 pg (27.0-33.4); MEAN CORPUSCULAR HGB CONC 32.5 g/dL (32.0-36.0); MEAN CORPUSCULAR VOLUME 91 fl (80-97); PLATELET COUNT 422 10^3/uL (150-450); RED BLOOD COUNT 3.47 10^6/uL (3.72-5.28); RED CELL DISTRIBUTION WIDTH 14.4 % (11.5-14.0); WHITE BLOOD COUNT 11.5 10^3/uL (4.0-10.5)
[2018-06-17 07:26] LABS: ALANINE AMINOTRANSFERASE 15 U/L (9-52); ALBUMIN 2.5 g/dL (3.5-5.0); ALKALINE PHOSPHATASE 39 U/L (38-126); ANION GAP 6 (5-19); ASPARTATE AMINO TRANSFERASE 12 U/L (14-36); BILIRUBIN,DIRECT 0.2 mg/dL (0.0-0.4); BILIRUBIN,TOTAL 0.4 mg/dL (0.2-1.3); BLOOD UREA NITROGEN 11 mg/dL (7-20); CALCIUM 8.8 mg/dL (8.4-10.2); CARBON DIOXIDE 29 mmol/L (22-30); CHLORIDE 108 mmol/L (98-107); GLUCOSE 122 mg/dL (75-110); POTASSIUM 3.7 mmol/L (3.6-5.0); SODIUM 142.5 mmol/L (137-145); TOTAL PROTEIN 5.4 g/dL (6.3-8.2)
[2018-06-17] MEDS: DILTIAZEM HCL 120 MG CAP.SR.24H PO SCH (10:51)
[2018-06-17] MEDS: METOPROLOL SUCCINATE 25 MG TAB.SR.24H PO SCH ×2 (10:52→21:29)
[2018-06-17] MEDS: LISINOPRIL 10 MG TABLET PO SCH (10:52)
[2018-06-17] MEDS: FERROUS SULFATE 325 MG TABLET PO SCH (10:56)
[2018-06-17] MEDS: MAGNESIUM OXIDE 400 MG TABLET PO SCH (10:56)
[2018-06-17] MEDS: ANASTROZOLE 1 MG TABLET PO SCH (10:56)
[2018-06-17] MEDS: AZITHROMYCIN 500 MG in DEXTROSE 5%-WATER 250 ML IV SCH (10:57)
[2018-06-17] MEDS: IPRATROPIUM/ALBUTEROL 0.5-2.5 MG/3 ML AMPUL NEB PRN (11:21)
--- NOTE | 2018-06-17 12:57 | PDOC PROGRESS REPORT ---
Subjective Progress Note for:: 06/17/18 Subjective:: Patient seen by the bedside still requiring IV Solu-Medrol Reason For Visit: EXACERBATED COPD,SEVERE HYPOKALEMIA Physical Exam Vital Signs: Temp Pulse Resp BP Pulse Ox 98.2 F 84 14 99/58 L 94 06/17/18 07:19 06/17/18 11:21 06/17/18 11:21 06/17/18 07:19 06/17/18 11:21 Intake & Output 06/16/18 06/17/18 06/18/18 06:59 06:59 06:59 Intake Total 425 1363 Output Total 0 Balance 425 1363 Weight 55.8 kg 55.6 kg General appearance: PRESENT: mild distress Eye exam: PRESENT: PERRLA Respiratory exam: PRESENT: wheezes Cardiovascular exam: PRESENT: +S1, +S2 GI/Abdominal exam: PRESENT: soft Neurological exam: PRESENT: alert Results Laboratory Results: 06/17/18 06:59 06/17/18 06:59 06/17/18 06/17/18 06:59 06:59 WBC 11.5 H RBC 3.47 L Hgb 10.3 L Hct 31.7 L MCV 91 MCH 29.7 MCHC 32.5 RDW 14.4 H Plt Count 422 Sodium 142.5 Potassium 3.7 Chloride 108 H Carbon Dioxide 29 Anion Gap 6 BUN 11 Creatinine 0.56 Est GFR ( Amer) > 60 Est GFR (Non-Af Amer) > 60 Glucose 122 H Calcium 8.8 Total Bilirubin 0.4 AST 12 L ALT 15 Alkaline Phosphatase 39 Total Protein 5.4 L Albumin 2.5 L 06/15/18 06/15/18 08:30 10:52 Troponin I < 0.012 < 0.012 NT-Pro-B Natriuret Pep 667 Impressions: Chest X-Ray 06/15/18 07:49 IMPRESSION: Obstructive lung disease. No acute findings Assessment & Plan - Diagnosis (1) COPD with acute exacerbation Is this a current diagnosis for this admission?: Yes Plan: Continue present treatment (2) Hypokalemia Is this a current diagnosis for this admission?: Yes
[2018-06-17] MEDS: MONTELUKAST SODIUM 10 MG TABLET PO SCH (18:05)
[2018-06-17] MEDS: RIVAROXABAN 10 MG TABLET PO SCH (18:05)
[2018-06-17] MEDS: BENZONATATE 100 MG CAPSULE PO PRN (21:30)
[2018-06-17] MEDS: ACETAMINOPHEN 325 MG TABLET PO PRN (23:23)
[2018-06-18] MEDS: LANSOPRAZOLE 30 MG TAB.RAP.DR PO SCH (05:51)
[2018-06-18] MEDS: METHYLPREDNISOLONE INJ 125 MG/2 ML SDV IV SCH ×3 (05:51→22:32)
[2018-06-18] MEDS: LISINOPRIL 10 MG TABLET PO SCH (11:08)
[2018-06-18] MEDS: ANASTROZOLE 1 MG TABLET PO SCH (11:09)
[2018-06-18] MEDS: DILTIAZEM HCL 120 MG CAP.SR.24H PO SCH (11:09)
[2018-06-18] MEDS: METOPROLOL SUCCINATE 25 MG TAB.SR.24H PO SCH ×2 (11:09→22:33)
[2018-06-18] MEDS: MAGNESIUM OXIDE 400 MG TABLET PO SCH (11:09)
[2018-06-18] MEDS: FERROUS SULFATE 325 MG TABLET PO SCH (11:09)
[2018-06-18] MEDS: AZITHROMYCIN 500 MG in DEXTROSE 5%-WATER 250 ML IV SCH (11:13)
--- NOTE | 2018-06-18 16:50 | PDOC PROGRESS REPORT ---
Subjective Progress Note for:: 06/18/18 Subjective:: Patient seen by the bedside, she continues to require the IV Solu-Medrol Reason For Visit: EXACERBATED COPD,SEVERE HYPOKALEMIA Physical Exam Vital Signs: Temp Pulse Resp BP Pulse Ox 97.9 F 77 18 116/74 98 06/18/18 11:52 06/18/18 11:52 06/18/18 11:52 06/18/18 11:52 06/18/18 11:52 Intake & Output 06/17/18 06/18/18 06/19/18 06:59 06:59 06:59 Intake Total 1363 1687 300 Output Total 0 Balance 1363 1687 300 Weight 55.6 kg 59.2 kg General appearance: PRESENT: no acute distress Eye exam: PRESENT: PERRLA Respiratory exam: PRESENT: wheezes Cardiovascular exam: PRESENT: +S1, +S2 GI/Abdominal exam: PRESENT: soft Neurological exam: PRESENT: alert Results Laboratory Results: 06/17/18 06:59 06/17/18 06:59 06/15/18 06/15/18 08:30 10:52 Troponin I < 0.012 < 0.012 NT-Pro-B Natriuret Pep 667 Impressions: Chest X-Ray 06/15/18 07:49 IMPRESSION: Obstructive lung disease. No acute findings Assessment & Plan - Diagnosis (1) COPD with acute exacerbation Is this a current diagnosis for this admission?: Yes Plan: Continue IV Solu-Medrol, bronchodilators (2) Hypokalemia Is this a current diagnosis for this admission?: Yes
[2018-06-18] MEDS: IPRATROPIUM/ALBUTEROL 0.5-2.5 MG/3 ML AMPUL NEB PRN (16:54)
[2018-06-18] MEDS ORDERED: DIPHENHYDRAMINE HCL 50 MG/ML VIAL ONE (18:30)
[2018-06-18] MEDS: MONTELUKAST SODIUM 10 MG TABLET PO SCH (19:36)
[2018-06-18] MEDS: RIVAROXABAN 10 MG TABLET PO SCH (19:36)
[2018-06-19] MEDS: ACETAMINOPHEN 325 MG TABLET PO PRN ×3 (01:01→22:35)
[2018-06-19] MEDS: METHYLPREDNISOLONE INJ 125 MG/2 ML SDV IV SCH ×4 (06:50→22:28)
[2018-06-19] MEDS: LANSOPRAZOLE 30 MG TAB.RAP.DR PO SCH (06:51)
[2018-06-19] MEDS: METOPROLOL SUCCINATE 25 MG TAB.SR.24H PO SCH ×2 (10:33→22:28)
[2018-06-19] MEDS: LISINOPRIL 10 MG TABLET PO SCH (10:33)
[2018-06-19] MEDS: FERROUS SULFATE 325 MG TABLET PO SCH (10:33)
[2018-06-19] MEDS: DILTIAZEM HCL 120 MG CAP.SR.24H PO SCH (10:33)
[2018-06-19] MEDS: MAGNESIUM OXIDE 400 MG TABLET PO SCH (10:34)
[2018-06-19] MEDS: IPRATROPIUM/ALBUTEROL 0.5-2.5 MG/3 ML AMPUL NEB PRN (12:49)
--- NOTE | 2018-06-19 14:09 | PDOC PROGRESS REPORT ---
Subjective Progress Note for:: 06/19/18 Subjective:: Patient seen by the bedside she is still wheezing Reason For Visit: EXACERBATED COPD,SEVERE HYPOKALEMIA Physical Exam Vital Signs: Temp Pulse Resp BP Pulse Ox 98.1 F 66 17 115/68 98 06/19/18 07:49 06/19/18 12:49 06/19/18 12:49 06/19/18 07:49 06/19/18 12:49 Intake & Output 06/18/18 06/19/18 06/20/18 06:59 06:59 06:59 Intake Total 1687 1128 Balance 1687 1128 Weight 59.2 kg 57.8 kg General appearance: PRESENT: no acute distress Eye exam: PRESENT: PERRLA Respiratory exam: PRESENT: wheezes Cardiovascular exam: PRESENT: +S1, +S2 GI/Abdominal exam: PRESENT: soft Neurological exam: PRESENT: alert Results Laboratory Results: 06/17/18 06:59 06/17/18 06:59 06/15/18 06/15/18 08:30 10:52 Troponin I < 0.012 < 0.012 NT-Pro-B Natriuret Pep 667 Impressions: Chest X-Ray 06/15/18 07:49 IMPRESSION: Obstructive lung disease. No acute findings Assessment & Plan - Diagnosis (1) COPD with acute exacerbation Is this a current diagnosis for this admission?: Yes Plan: DC IV supplemental start prednisone 40 mg trelegy (2) Hypokalemia Is this a current diagnosis for this admission?: Yes
[2018-06-19] MEDS ORDERED: METHYLPREDNISOLONE INJ 125 MG/2 ML SDV IV SCH (14:15)
[2018-06-19] MEDS: ANASTROZOLE 1 MG TABLET PO SCH (14:39)
[2018-06-19] MEDS: AZITHROMYCIN 500 MG in DEXTROSE 5%-WATER 250 ML IV SCH (14:53)
[2018-06-19] MEDS: FLUTICASONE/UMECLIDIN/VILANTER 100-62.5-25 MCG/DOSE IH SCH (15:38)
[2018-06-19] MEDS: RIVAROXABAN 10 MG TABLET PO SCH (16:29)
[2018-06-19] MEDS: MONTELUKAST SODIUM 10 MG TABLET PO SCH (18:38)
[2018-06-19] MEDS ORDERED: AZITHROMYCIN 250 MG TABLET PO ONE (20:15)
[2018-06-20] MEDS: LANSOPRAZOLE 30 MG TAB.RAP.DR PO SCH (06:00)
[2018-06-20] MEDS: ACETAMINOPHEN 325 MG TABLET PO PRN ×2 (06:00→22:18)
[2018-06-20] MEDS: METHYLPREDNISOLONE INJ 125 MG/2 ML SDV IV SCH ×2 (06:01→14:41)
[2018-06-20] MEDS: FERROUS SULFATE 325 MG TABLET PO SCH (10:32)
[2018-06-20] MEDS: DILTIAZEM HCL 120 MG CAP.SR.24H PO SCH (10:32)
[2018-06-20] MEDS: MAGNESIUM OXIDE 400 MG TABLET PO SCH (10:32)
[2018-06-20] MEDS: METOPROLOL SUCCINATE 25 MG TAB.SR.24H PO SCH ×2 (10:33→22:16)
[2018-06-20] MEDS: FLUTICASONE/UMECLIDIN/VILANTER 100-62.5-25 MCG/DOSE IH SCH (10:33)
[2018-06-20] MEDS: LISINOPRIL 10 MG TABLET PO SCH (10:33)
[2018-06-20] MEDS: ANASTROZOLE 1 MG TABLET PO SCH (10:33)
[2018-06-20] MEDS ORDERED: AZITHROMYCIN 250 MG TABLET PO SCH (18:00)
[2018-06-20] MEDS: RIVAROXABAN 10 MG TABLET PO SCH (18:18)
[2018-06-20] MEDS: MONTELUKAST SODIUM 10 MG TABLET PO SCH (18:18)
[2018-06-20] MEDS ORDERED: METHYLPREDNISOLONE DOSEPAK (4 MG/TAB) 21 TAB/DSPK PO PRN (19:49)
--- NOTE | 2018-06-20 20:03 | PDOC PROGRESS REPORT ---
Subjective Progress Note for:: 06/20/18 Subjective:: Patient reported some improvement in her breathing and exertional efforts so far today. No chest pain. No nausea or vomiting. No fever or chills. Reason For Visit: EXACERBATED COPD,SEVERE HYPOKALEMIA Physical Exam Vital Signs: Temp Pulse Resp BP Pulse Ox 98.6 F 71 18 101/70 100 06/20/18 12:19 06/20/18 14:00 06/20/18 12:19 06/20/18 12:19 06/20/18 12:19 Intake & Output 06/19/18 06/20/18 06/21/18 06:59 06:59 06:59 Intake Total 1128 1775 775 Balance 1128 1775 775 Weight 57.8 kg 55.5 kg General appearance: PRESENT: mild distress - remain on supplemental oxygen via nasal cannula. Head exam: PRESENT: atraumatic, normocephalic Eye exam: PRESENT: conjunctiva pink, EOMI, PERRLA. ABSENT: scleral icterus Ear exam: PRESENT: normal external ear exam Mouth exam: PRESENT: moist Respiratory exam: PRESENT: decreased breath sounds - bilaterally, prolonged expiratory phas, rhonchi, wheezes Cardiovascular exam: PRESENT: irregular rhythm, +S1, +S2. ABSENT: diastolic murmur, systolic murmur Vascular exam: PRESENT: normal capillary refill. ABSENT: pallor GI/Abdominal exam: PRESENT: normal bowel sounds, soft. ABSENT: distended, guarding, mass, organolmegaly, rebound, tenderness Rectal exam: PRESENT: deferred Extremities exam: ABSENT: pedal edema Musculoskeletal exam: PRESENT: normal inspection Neurological exam: PRESENT: alert, awake, oriented to person, oriented to place, oriented to time, oriented to situation, CN II-XII grossly intact. ABSENT: motor sensory deficit Psychiatric exam: PRESENT: appropriate affect, normal mood. ABSENT: homicidal ideation, suicidal ideation Skin exam: PRESENT: dry, intact, warm. ABSENT: cyanosis, rash Results Laboratory Results: 06/17/18 06:59 06/17/18 06:59 06/15/18 10:52 Blood Blood Culture - Final NO GROWTH IN 5 DAYS 06/15/18 08:30 Blood Blood Culture - Final NO GROWTH IN 5 DAYS 06/15/18 06/15/18 08:30 10:52 Troponin I < 0.012 < 0.012 NT-Pro-B Natriuret Pep 667 Impressions: Chest X-Ray 06/15/18 07:49 IMPRESSION: Obstructive lung disease. No acute findings Assessment & Plan - Diagnosis (1) COPD exacerbation Is this a current diagnosis for this admission?: Yes Plan: D/ C IV Solu Medrol. Start on Medrol Dose pack therapy tonight. Maintain on all other current medication management. (2) Hypokalemia due to loss of potassium Is this a current diagnosis for this admission?: Yes Plan: Continue current management. Obtain BMP in AM. (3) Essential hypertension Is this a current diagnosis for this admission?: Yes Plan: Maintain on all current medication management. (4) HLD (hyperlipidemia) Qualifiers: Hyperlipidemia type: unspecified Qualified Code(s): E78.5 - Hyperlipidemia, unspecified Is this a current diagnosis for this admission?: Yes Plan: Maintain on all current medication management. (5) GERD (gastroesophageal reflux disease) Qualifiers: Esophagitis presence: without esophagitis Qualified Code(s): K21.9 - Gastro-esophageal reflux disease without esophagitis Is this a current diagnosis for this admission?: Yes Plan: Maintain on all current medication management. (6) Depression Qualifiers: Depression Type: unspecified Qualified Code(s): F32.9 - Major depressive disorder, single episode, unspecified Is this a current diagnosis for this admission?: Yes Plan: Maintain on all current medication management. - Time Time Spent with patient: 25-34 minutes Medications reviewed and adjusted accordingly: Yes Anticipated discharge: Home with Homehealth Within: Other - Inpatient Certification Based on my medical assessment, after consideration of the patient's kristyn rbidities, presenting symptoms, or acuity I expect that the services needed warrant INPATIENT care.: Yes I certify that my determination is in accordance with my understanding of Medicare's requirements for reasonable and necessary INPATIENT services [42 CFR 412.3e].: Yes Medical Necessity: Need Close Monitoring Due to Risk of Patient Decompensation, Need For Continuous Telemetry Monitoring, Need for Nebulizer Therapy and Monitoring of Response, Risk of Complication if Not Cared For in Hospital 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
[2018-06-20] MEDS ORDERED: MEDROL DOSEPAK (DAY 1 BEDTIME DOSE) (EDIT AFTER 0800) PO SCH (22:00)
[2018-06-20] MEDS ORDERED: METHYLPREDNISOLONE 4 MG TABLET PO SCH (22:00)
[2018-06-20] MEDS: MEDROL DOSEPAK (DAY 1 LUNCH & SUPPER) (EDIT AFTER 0800) PO SCH (22:13)
[2018-06-21 06:17] LABS: ABSOLUTE BASOPHILS # (AUTO) 0.1 10^3/uL (0.0-0.2); ABSOLUTE LYMPHOCYTES (AUTO) 0.9 10^3/uL (0.5-4.7); ABSOLUTE MONOCYTES (AUTO) 0.6 10^3/uL (0.1-1.4); BASOPHILS % (AUTO) 0.7 % (0-2); HEMATOCRIT 34.5 % (36.0-47.0); HEMOGLOBIN 11.2 g/dL (12.0-15.5); LYMPHOCYTES % (AUTO) 10.2 % (13-45); MEAN CORPUSCULAR HEMOGLOBIN 29.5 pg (27.0-33.4); MEAN CORPUSCULAR HGB CONC 32.5 g/dL (32.0-36.0); MEAN CORPUSCULAR VOLUME 91 fl (80-97); PLATELET COUNT 474 10^3/uL (150-450); RED CELL DISTRIBUTION WIDTH 14.1 % (11.5-14.0); SEGMENTED NEUTROPHILS % (AUTO) 82.1 % (42-78); TOTAL CELLS COUNTED % (AUTO) 100 %; WHITE BLOOD COUNT 8.5 10^3/uL (4.0-10.5)
[2018-06-21] MEDS: LANSOPRAZOLE 30 MG TAB.RAP.DR PO SCH (06:32)
[2018-06-21] MEDS: ACETAMINOPHEN 325 MG TABLET PO PRN (06:33)
[2018-06-21 06:42] LABS: ANION GAP 5 (5-19); BLOOD UREA NITROGEN 25 mg/dL (7-20); CALCIUM 8.1 mg/dL (8.4-10.2); CARBON DIOXIDE 31 mmol/L (22-30); CHLORIDE 103 mmol/L (98-107); GLUCOSE 111 mg/dL (75-110); POTASSIUM 3.6 mmol/L (3.6-5.0); SODIUM 138.7 mmol/L (137-145)
[2018-06-21 07:54] VITALS: BP 115/65
[2018-06-21] MEDS ORDERED: MEDROL DOSEPAK PO SCH ×2 (08:00→13:00)
[2018-06-21] MEDS ORDERED: MEDROL DOSEPAK (DAY 1 BRKFST) (EDIT AFTER 0800) PO SCH (08:00)
[2018-06-21] MEDS: MAGNESIUM OXIDE 400 MG TABLET PO SCH (09:14)
[2018-06-21] MEDS: METOPROLOL SUCCINATE 25 MG TAB.SR.24H PO SCH (09:14)
[2018-06-21] MEDS: DILTIAZEM HCL 120 MG CAP.SR.24H PO SCH (09:14)
[2018-06-21] MEDS: FERROUS SULFATE 325 MG TABLET PO SCH (09:14)
[2018-06-21] MEDS: ANASTROZOLE 1 MG TABLET PO SCH (09:15)
[2018-06-21] MEDS: LISINOPRIL 10 MG TABLET PO SCH (09:15)
[2018-06-21] MEDS: FLUTICASONE/UMECLIDIN/VILANTER 100-62.5-25 MCG/DOSE IH SCH (09:16)
[2018-06-21] MEDS ORDERED: MEDROL DOSEPAK (DAY 1 LUNCH & SUPPER) (EDIT AFTER 0800) PO SCH (13:00)
--- NOTE | 2018-06-21 18:07 | PDOC DISCHARGE SUMMARY ---
General - Admit/Disc Date/PCP Admission Date/Primary Care Provider: 06/15/18 11:52 LUKASZ ORNELAS Discharge Date: 06/21/18 - Discharge Diagnosis (1) COPD exacerbation Is this a current diagnosis for this admission?: Yes (2) Hypokalemia due to loss of potassium Is this a current diagnosis for this admission?: Yes (3) Essential hypertension Is this a current diagnosis for this admission?: Yes (4) HLD (hyperlipidemia) Is this a current diagnosis for this admission?: Yes (5) GERD (gastroesophageal reflux disease) Is this a current diagnosis for this admission?: Yes (6) Depression Is this a current diagnosis for this admission?: Yes - Additional Information Resuscitation Status: Full Code Discharge Diet: Regular - low salt diet Discharge Activity: Activity As Tolerated, Slowly Increase Activity Prescriptions: Azithromycin [Zithromax 250 mg Tablet] 250 mg PO QPM #5 tablet Fluticasone/Umeclidin/Vilanter [Trelegy 100-62.5-25 Mcg Ellipta 14 Dose/Dpi] 1 inh IH DAILY #1 inhaler Methylprednisolone [Medrol Dosepack (4 mg/Tab) 21 Tab/Dosepak] 4 mg PO ASDIR PRN #21 tab.ds.pk PRN Reason: Home Medications: Albuterol Sulfate [Proair HFA Inhalation Aerosol 8.5 gm MDI] 2 puff IH Q4HP PRN 06/15/18 Anastrozole [Arimidex 1 mg Tablet] 1 mg PO DAILY 06/15/18 Diltiazem HCl [Cartia Xt] 120 mg PO DAILY 06/15/18 Ferrous Sulfate [Feosol 325 mg Tablet] 325 mg PO DAILY 06/15/18 Lansoprazole 30 mg PO Q6AM 06/15/18 Lisinopril [Prinivil 10 mg Tablet] 10 mg PO DAILY 06/15/18 Metoprolol Succinate [Toprol Xl] 25 mg PO Q12 06/15/18 Montelukast Sodium [Singulair 10 mg Tablet] 10 mg PO QPM 06/15/18 Rivaroxaban [Xarelto] 20 mg PO WSUPPER 06/15/18 Tiotropium [place] [Spiriva Respimat] 2 spray NASL DAILY 06/15/18 Azelastine HCl 2 spray NS BID 06/19/18 Benzonatate [Tessalon Perles 100 mg Capsule] 200 mg PO TIDP PRN 06/19/18 Levalbuterol HCl [Xopenex] 1.25 mg IH Q4HP PRN 06/19/18 Azithromycin [Zithromax 250 mg Tablet] 250 mg PO QPM #5 tablet 06/21/18 Fluticasone/Umeclidin/Vilanter [Trelegy 100-62.5-25 Mcg Ellipta 14 Dose/Dpi] 1 inh IH DAILY #1 inhaler 06/21/18 Magnesium Oxide [Mag-Ox 400 mg Tablet] 400 mg PO Q2DAYS #0 06/21/18 Methylprednisolone [Medrol Dosepack (4 mg/Tab) 21 Tab/Dosepak] 4 mg PO ASDIR PRN #21 tab.ds.pk 06/21/18 History of Present Illness Patient complains of: worsening difficulty with breathing, productive cough History of Present Illness: ARIELLA JUAREZ is a 53 year old female known to my practice with history of oxygen dependent end stage COPD who presented to the Ed with complaint of worsening difficulty with breathing and productive cough. She described sputum as greenish in color. No associated blood or brownish discoloration to her sputu m. Patient reported onset of symptoms couple of days ago. She denied fever but admitted to chills. There is associated chest pain with coughing. She denied ongoing cigarette smoking. She has prior history of intubation due to COPD exacerbation. Her initial evaluation in the ED was significant for low grade fever and hypokalemia. There was concern for exacerbated COPD and associated infectious process for which she was advised hospitalization. Her morbidities include breast cancer s/p bilateral mastectomy, COPD, Hypertension, chronic systolic CHF, Hyperlipidemia, GERD, and Depression. Hospital Course Hospital Course: Patient was admitted for exacerbated COPD with concern for acute infectious process. She was managed with IV Solu Medrol and bronchodilators. She was later started on antibiotic therapy. Her symptoms did improve to the extent that angeli ent has been able to ambulate some distance without symptom exacerbation. She remain afebrile and denied any chest pain. She is agreeable to discharge hoe today. She will follow up with me in the office as instructed upon discharge. Physical Exam Vital Signs: Temp Pulse Resp BP Pulse Ox 98.8 F 62 12 115/65 97 06/21/18 07:00 06/21/18 07:00 06/21/18 07:00 06/21/18 07:00 06/21/18 07:00 Intake & Output 06/20/18 06/21/18 06/22/18 06:59 06:59 06:59 Intake Total 1775 1352 Balance 1775 1352 Weight 55.5 kg 53.9 kg General appearance: PRESENT: mild distress - on supplemental oxygen at 2L/min via nasal cannula. Head exam: PRESENT: atraumatic, normocephalic Eye exam: PRESENT: conjunctiva pink, EOMI, PERRLA. ABSENT: scleral icterus Ear exam: PRESENT: normal external ear exam Mouth exam: PRESENT: moist Respiratory exam: PRESENT: decreased breath sounds - at lung bases. ABSENT: rhonchi, wheezes Cardiovascular exam: PRESENT: RRR. ABSENT: diastolic murmur, rubs, systolic murmur Vascular exam: PRESENT: normal capillary refill. ABSENT: pallor GI/Abdominal exam: PRESENT: normal bowel sounds, soft. ABSENT: distended, guarding, mass, organolmegaly, rebound, tenderness Extremities exam: ABSENT: pedal edema Musculoskeletal exam: ABSENT: tenderness Neurological exam: PRESENT: alert, awake, oriented to person, oriented to place, oriented to time, oriented to situation, CN II-XII grossly intact. ABSENT: motor sensory deficit Psychiatric exam: PRESENT: appropriate affect, normal mood. ABSENT: homicidal ideation, suicidal ideation Skin exam: PRESENT: dry, intact, warm. ABSENT: cyanosis, rash Results Laboratory Results: 06/21/18 05:11 06/21/18 05:11 06/21/18 06/21/18 05:11 05:11 WBC 8.5 RBC 3.80 Hgb 11.2 L Hct 34.5 L MCV 91 MCH 29.5 MCHC 32.5 RDW 14.1 H Plt Count 474 H Seg Neutrophils % 82.1 H Lymphocytes % 10.2 L Monocytes % 7.0 Eosinophils % 0.0 Basophils % 0.7 Absolute Neutrophils 7.0 Absolute Lymphocytes 0.9 Absolute Monocytes 0.6 Absolute Eosinophils 0.0 Absolute Basophils 0.1 Sodium 138.7 Potassium 3.6 Chloride 103 Carbon Dioxide 31 H Anion Gap 5 BUN 25 H Creatinine 0.64 Est GFR ( Amer) > 60 Est GFR (Non-Af Amer) > 60 Glucose 111 H Calcium 8.1 L Magnesium 2.5 H 06/15/18 10:52 Blood Blood Culture - Final NO GROWTH IN 5 DAYS 06/15/18 08:30 Blood Blood Culture - Final NO GROWTH IN 5 DAYS 06/15/18 06/15/18 08:30 10:52 Troponin I < 0.012 < 0.012 NT-Pro-B Natriuret Pep 667 Impressions: Chest X-Ray 06/15/18 07:49 IMPRESSION: Obstructive lung disease. No acute findings Qualifiers - * PATIENT BEING DISCHARGED WITH ANY OF THE FOLLOWING DIAGNOSIS: No Plan Discharge Plan: Discharge home today. Follow up in the office as instructed upon discharge.
[2018-06-21] MEDS ORDERED: MEDROL DOSEPAK (DAY 1 BEDTIME DOSE) (EDIT AFTER 0800) PO SCH (22:00)
[2018-06-21] MEDS ORDERED: MEDROL DOSEPAK (DAY 2 HS) PO SCH (22:00)
[2018-06-22] MEDS ORDERED: MEDROL DOSEPAK (DAY 3) PO SCH (08:00)
[2018-06-22] MEDS ORDERED: MEDROL DOSEPAK (DAY 2 BRKFST, LUNCH, SUPPER) PO SCH (08:00)
[2018-06-22] MEDS ORDERED: MEDROL DOSEPAK (DAY 2 HS) PO SCH (22:00)
[2018-06-23] MEDS ORDERED: MEDROL DOSEPAK (DAY 3) PO SCH (08:00)
[2018-06-23] MEDS ORDERED: MEDROL DOSEPAK (DAY 4) PO SCH (08:00)
[2018-06-24] MEDS ORDERED: MEDROL DOSEPAK (DAY 4) PO SCH (08:00)
[2018-06-24] MEDS ORDERED: MEDROL DOSEPAK (DAY 5) PO SCH (08:00)
[2018-06-25] MEDS ORDERED: MEDROL DOSEPAK (DAY 5) PO SCH (08:00)
[2018-06-25] MEDS ORDERED: MEDROL DOSEPAK (DAY 6) PO SCH (08:00)
[2018-06-26] MEDS ORDERED: MEDROL DOSEPAK (DAY 6) PO SCH (08:00)
== END 2018-06-21 10:08 | disposition home or self-care (01) | DRG 191 ==
LOC: ER 07:13 → EH 11:52 → 3W 15:03
PROVIDERS: ADMIT Internal Medicine Geriatric Medicine; ATTEND Internal Medicine Geriatric Medicine
PROC: 3E0F73Z Introduction of Anti-inflammatory into Respiratory Tract, Via Natural or Artificial Opening (ICD-10-PCS; principal; 2018-06-16)
DX: J44.1 Chronic obstructive pulmonary disease with (acute) exacerbation (principal); I50.22 Chronic systolic (congestive) heart failure; I69.354 Hemiplegia and hemiparesis following cerebral infarction affecting left non-dominant side; E87.6 Hypokalemia; K21.9 Gastro-esophageal reflux disease without esophagitis; F32.9 Major depressive disorder, single episode, unspecified; E78.5 Hyperlipidemia, unspecified; I11.0 Hypertensive heart disease with heart failure; Z99.81 Dependence on supplemental oxygen; Z85.3 Personal history of malignant neoplasm of breast; Z90.13 Acquired absence of bilateral breasts and nipples; Z87.891 Personal history of nicotine dependence; Z82.49 Family history of ischemic heart disease and other diseases of the circulatory system; Z96.612 Presence of left artificial shoulder joint; Z79.51 Long term (current) use of inhaled steroids; Z88.8 Allergy status to other drugs, medicaments and biological substances
CPT/HCPCS: 36415; 51701; 71045; 80048; 80053; 81001; 82803; 83605; 83735; 83880; 84484; 85025; 85027; 87040; 87804; 93005; 93010; 94640; 96365; 96375; 99285; J0456; J2930; J3490; J7060; J7509; J7620

== ENCOUNTER 2018-07-27 19:10 | Emergency (ER) | payer MEDICARE, MEDICAID ==
--- NOTE | 2018-07-27 20:05 | ER Document Report ---
ED Medical Screen (RME) - General Chief Complaint: Shortness Of Breath Stated Complaint: DIFFICULTY BREATHING Time Seen by Provider: 07/27/18 20:00 Primary Care Provider: ERICA REAL MD [Primary Care Provider] - Follow up as needed Mode of Arrival: Wheelchair Information source: Patient Notes: 53-year-old female presents to ED for complaint of chest pain shortness of breath cough congestion and wheezing. She states she has a history of COPD asthma CHF pneumothorax breast cancer. She states she was in a ventilator in January for COPD exacerbation. She states she is also had a chest tube for pneumothorax. Patient states she has had leg pain ever since she came off of the ventilator in January. Patient states she is normally on TREATMENT but her O2 sats are 97% on room air at this time. Patient is alert oriented respirations regular and unlabored at this time. Labs x-ray EKG were ordered as well as a venous Doppler. I have greeted and performed a rapid initial assessment of this patient. A comprehensive ED assessment and evaluation of the patient, analysis of test results and completion of medical decision making process will be conducted by an additional ED providers. TRAVEL OUTSIDE OF THE [place] IN LAST 30 DAYS: No - Related Data Allergies/Adverse Reactions: prednisone [Prednisone] Adverse Reaction (Intermediate, Verified 11/21/17 18:46) Past Medical History - Past Medical History Cardiac Medical History: Reports: Hx Congestive Heart Failure, Hx Hypercholesterolemia Denies: Hx Coronary Artery Disease, Hx Heart Attack, Hx Hypertension Pulmonary Medical History: Reports: Hx Asthma, Hx Bronchitis, Hx COPD, Hx Pneumonia Denies: Hx Respiratory Failure, Hx Sleep Apnea, Hx Tuberculosis Neurological Medical History: Reports: Hx Cerebrovascular Accident - WEAKNESS ON LEFT SIDE. Denies: Hx Seizures Endocrine Medical History: Renal/ Medical History: Reports: Hx Ovarian Cysts. Denies: Hx Peritoneal Dialysis Malignancy Medical History: Reports: Hx Breast Cancer GI Medical History: Reports: Hx Gastroesophageal Reflux Disease, Hx Hiatal Hernia Musculoskeltal Medical History: Denies Hx Arthritis, Denies Hx Multiple Sclerosis Psychiatric Medical History: Reports: Hx Depression Denies: Hx Dementia Infectious Medical History: Past Surgical History: Reports: Hx Mastectomy - bilat 2010, Hx Orthopedic Surgery - left shoulder replacement 09/10. Denies: Hx Hysterectomy, Hx Pacemaker - Immunizations Hx Diphtheria, Pertussis, Tetanus Vaccination: No History of Influenza Vaccine for 03/2017 - 08/2017 Season: Yes Influenza Administration Date for 03/2017 - 08/2017 Season: 03/26/17 Physical Exam - Vital signs Vitals: Temp Pulse Resp BP Pulse Ox 100.0 F 115 H 21 H 103/85 97 07/27/18 19:40 07/27/18 19:40 07/27/18 19:40 07/27/18 19:40 07/27/18 19:40 Course - Vital Signs Vital signs: Temp Pulse Resp BP Pulse Ox 100.0 F 115 H 21 H 103/85 97 07/27/18 19:40 07/27/18 19:40 07/27/18 19:40 07/27/18 19:40 07/27/18 19:40 Doctor's Discharge - Discharge Referrals: ERICA REAL MD [Primary Care Provider] - Follow up as needed
--- NOTE | 2018-07-27 20:33 | RADIOLOGY REPORT (SQ) ---
XR CHEST 2 VIEWS HISTORY: Cough and congestion. COMPARISON: 06/14/2018 FINDINGS: The heart size is normal. Emphysematous changes are present throughout both lungs with scarring in the left, unchanged. No large pleural effusions or pneumothorax. A left shoulder hemiarthroplasty is present along with axillary clips left chest wall. IMPRESSION: 1. No evidence of acute cardiopulmonary disease. 2. Chronic changes of emphysema.
[2018-07-27 21:09] LABS: ABSOLUTE BASOPHILS # (AUTO) 0.1 10^3/uL (0.0-0.2); ABSOLUTE EOSINOPHILS # (AUTO) 0.1 10^3/uL (0.0-0.6); ABSOLUTE LYMPHOCYTES (AUTO) 2.1 10^3/uL (0.5-4.7); ABSOLUTE MONOCYTES (AUTO) 0.7 10^3/uL (0.1-1.4); ABSOLUTE NEUT (AUTO) 2.9 10^3/uL (1.7-8.2); BASOPHILS % (AUTO) 1.1 % (0-2); EOSINOPHILS % (AUTO) 0.9 % (0-6); HEMATOCRIT 38.3 % (36.0-47.0); HEMOGLOBIN 12.5 g/dL (12.0-15.5); LYMPHOCYTES % (AUTO) 36.1 % (13-45); MEAN CORPUSCULAR HEMOGLOBIN 29.8 pg (27.0-33.4); MEAN CORPUSCULAR HGB CONC 32.8 g/dL (32.0-36.0); MEAN CORPUSCULAR VOLUME 91 fl (80-97); MONOCYTES % (AUTO) 11.7 % (3-13); PLATELET COUNT 333 10^3/uL (150-450); RED BLOOD COUNT 4.21 10^6/uL (3.72-5.28); RED CELL DISTRIBUTION WIDTH 14.8 % (11.5-14.0); SEGMENTED NEUTROPHILS % (AUTO) 50.2 % (42-78); TOTAL CELLS COUNTED % (AUTO) 100 %; WHITE BLOOD COUNT 5.7 10^3/uL (4.0-10.5)
[2018-07-27 21:11] LABS: APPEARANCE,URINE CLOUDY; BILIRUBIN,URINE SMALL (NEGATIVE); CALCIUM OXALATE CRYSTALS,URINE MANY /HPF; GLUCOSE, URINE NEGATIVE (NEGATIVE); KETONES,URINE 20 mg/dL (NEGATIVE); LEUKOCYTE ESTERASE,URINE TRACE (NEGATIVE); NITRITE,URINE NEGATIVE (NEGATIVE); PROTEIN,URINE 30 mg/dL (NEGATIVE); URINE SPECIFIC GRAVITY 1.029
[2018-07-27 21:12] LABS: COLOR,URINE YELLOW
[2018-07-27 21:19] LABS: ALANINE AMINOTRANSFERASE 24 U/L (9-52); ALBUMIN 3.5 g/dL (3.5-5.0); ALKALINE PHOSPHATASE 72 U/L (38-126); ANION GAP 8 (5-19); ASPARTATE AMINO TRANSFERASE 27 U/L (14-36); BLOOD UREA NITROGEN 9 mg/dL (7-20); CALCIUM 9.1 mg/dL (8.4-10.2); CARBON DIOXIDE 25 mmol/L (22-30); CHLORIDE 108 mmol/L (98-107); CREATINE KINASE 38 U/L (30-135); GLUCOSE 83 mg/dL (75-110); POTASSIUM 3.4 mmol/L (3.6-5.0); SODIUM 141.4 mmol/L (137-145); TOTAL PROTEIN 6.6 g/dL (6.3-8.2)
[2018-07-27 21:23] LABS: URINE AMPHETAMINES SCREEN NEGATIVE; URINE BARBITURATES SCREEN NEGATIVE; URINE BENZODIAZEPINES SCREEN NEGATIVE; URINE COCAINE SCREEN NEGATIVE; URINE MARIJUANA (THC) SCREEN NEGATIVE; URINE METHADONE SCREEN NEGATIVE; URINE PHENCYCLIDINE SCREEN NEGATIVE
[2018-07-27 21:24] LABS: BILIRUBIN,TOTAL 0.6 mg/dL (0.2-1.3)
[2018-07-27 21:26] LABS: BILIRUBIN,DIRECT 0.6 mg/dL (0.0-0.4)
[2018-07-27 21:32] LABS: CREATINE KINASE MB < 0.22 ng/mL (<4.55); TROPONIN I < 0.012 ng/mL
[2018-07-27] MEDS ORDERED: ACETAMINOPHEN 325 MG TABLET PO ONE (23:06)
--- NOTE | 2018-07-27 23:10 | ER Document Report ---
ED General - General Chief Complaint: Shortness Of Breath Stated Complaint: DIFFICULTY BREATHING Time Seen by Provider: 07/27/18 20:00 Primary Care Provider: ERICA REAL MD [ACTIVE STAFF] - Follow up as needed Mode of Arrival: Wheelchair Notes: Patient is a 53-year-old female with a past medical history of advanced COPD with 2 L of oxygen dependency at baseline, presents complaining of 24-36 hours of worsening cough, fever, shortness of breath. Symptoms started gradually, have been worsening since onset. Has been using her breathing treatments at home with moderate improvement. Nothing worsens her symptoms. Has not seen her general physician regarding today's concerns. Did receive both an influenza and pneumonia vaccination this year. She notes associated nausea but no vomiting or diarrhea. Multiple sick contacts. TRAVEL OUTSIDE OF THE [place] IN LAST 30 DAYS: No - Related Data Allergies/Adverse Reactions: prednisone [Prednisone] Adverse Reaction (Intermediate, Verified 11/21/17 18:46) Past Medical History - General Information source: Patient - Social History Smoking Status: Never Smoker Chew tobacco use (# tins/day): No Frequency of alcohol use: None Drug Abuse: None Lives with: Family Family History: Hypertension Patient has suicidal ideation: No Patient has homicidal ideation: No - Past Medical History Cardiac Medical History: Reports: Hx Congestive Heart Failure, Hx Hypercholesterolemia Denies: Hx Coronary Artery Disease, Hx Heart Attack, Hx Hypertension Pulmonary Medical History: Reports: Hx Asthma, Hx Bronchitis, Hx COPD, Hx Pneumonia Denies: Hx Respiratory Failure, Hx Sleep Apnea, Hx Tuberculosis Neurological Medical History: Reports: Hx Cerebrovascular Accident - WEAKNESS ON LEFT SIDE. Denies: Hx Seizures Endocrine Medical History: Renal/ Medical History: Reports: Hx Ovarian Cysts. Denies: Hx Peritoneal Dialysis Malignancy Medical History: Reports: Hx Breast Cancer GI Medical History: Reports: Hx Gastroesophageal Reflux Disease, Hx Hiatal Hernia Musculoskeletal Medical History: Denies Hx Arthritis, Denies Hx Multiple Sclerosis Psychiatric Medical History: Reports: Hx Depression Denies: Hx Dementia Infectious Medical History: Past Surgical History: Reports: Hx Mastectomy - bilat 2010, Hx Orthopedic Surgery - left shoulder replacement 09/10. Denies: Hx Hysterectomy, Hx Pacemaker - Immunizations Hx Diphtheria, Pertussis, Tetanus Vaccination: No Hx Pneumococcal Vaccination: 06/26/11 Review of Systems - Review of Systems Notes: Constitutional: Positive for fever. HENT: Positive for sore throat. Eyes: Negative for visual changes. Cardiovascular: Negative for chest pain. Respiratory: Positive for shortness of breath and cough Gastrointestinal: Negative for abdominal pain, positive for nausea Genitourinary: Negative for dysuria. Musculoskeletal: Negative for back pain. Skin: Negative for rash. Neurological: Negative for headaches, weakness or numbness. 10 point ROS negative except as marked above and in HPI. Physical Exam - Vital signs Vitals: Temp Pulse Resp BP Pulse Ox 100.0 F 115 H 21 H 103/85 97 07/27/18 19:40 07/27/18 19:40 07/27/18 19:40 07/27/18 19:40 07/27/18 19:40 Interpretation: Tachycardic - Resolved at the time of my assessment Notes: PHYSICAL EXAMINATION: GENERAL: Appears moderately uncomfortable but in no acute distress HEAD: Atraumatic, normocephalic. EYES: Pupils equal round and reactive to light, extraocular movements intact, sclera anicteric, conjunctiva are normal. ENT: nares patent, oropharynx clear without exudates. Moderately dry mucous membranes. NECK: Normal range of motion, supple without lymphadenopathy LUNGS: Breath sounds clear to auscultation bilaterally and equal. Faint wheezing all lung alonzo HEART: Regular rate and rhythm without murmurs ABDOMEN: Soft, nontender, normoactive bowel sounds. No guarding, no rebound. No masses appreciated. EXTREMITIES: Normal range of motion, no pitting or edema. No cyanosis. NEUROLOGICAL: No focal neurological deficits. Moves all extremities spontaneously and on command. PSYCH: Normal mood, normal affect. SKIN: Warm, Dry, normal turgor, no rashes or lesions noted. Course - Re-evaluation Re-evalutation: 07/27/18 23:02 Patient presents with cough, shortness of breath, diarrhea, and fever at home consistent with a flulike illness, flu testing is pending. Clinical history and exam is not consistent with an acute bacterial meningitis, encephalitis, pneumonia, there is no evidence of a cellulitis on examination. Patient likewise denies any urinary symptoms. Chest x-ray is clear without any evidence of an acute pneumonia. Urinalysis without any evidence of a pyelonephritis. P atient does not have any focal abdominal tenderness to suggest an acute biliary pathology, acute appendicitis, acute mesenteric ischemia, bowel obstruction, bowel, or any other life-threatening acute intra-abdominal pathology as the etiology of the fever and additional symptoms today. Labs are otherwise unremarkable. Patient has tolerated oral intake without difficulty. Vitals at time of reassessment are within normal limits. Please note that the discharge vitals as documented were captured from monitor and are not accurate. I assessed the patient just prior to discharge and her heart rate was 93. Respiratory rate was normal at 18. After risks and benefits conversation with the patient regarding the use of Tamiflu, they have elected to use supportive care without Tamiflu based on concerns about lack of efficacy as well as the side effect profile. At this time will discharge with return precautions and follow-up recommendations. Verbal discharge instructions given a the bedside and opportunity for questions given. Medication warnings reviewed. Patient is in agreement with this plan and has verbalized understanding of return precautions and the need for primary care follow-up in the next 24-72 hours. - Vital Signs Vital signs: Temp Pulse Resp BP Pulse Ox 99.4 F 115 H 23 H 118/78 95 07/27/18 23:39 07/27/18 19:40 07/27/18 23:39 07/27/18 23:39 07/27/18 23:39 - Laboratory Result Diagrams: 07/27/18 20:45 07/27/18 20:45 Laboratory results interpreted by me: 07/27/18 07/27/18 07/27/18 20:45 20:45 20:45 RDW 14.8 H Potassium 3.4 L Chloride 108 H Direct Bilirubin 0.6 H Urine Protein 30 H Urine Ketones 20 H Urine Blood SMALL H Urine Bilirubin SMALL H Urine Urobilinogen 2.0 H Ur Leukocyte Esterase TRACE H - Diagnostic Test Radiology reviewed: Image reviewed, Reports reviewed Radiology results interpreted by me: 07/27/18 23:04 Chest x-ray: No acute infiltrate pneumothorax Discharge - Discharge Clinical Impression: Cough COPD (chronic obstructive pulmonary disease) Qualifiers: COPD type: unspecified COPD Qualified Code(s): J44.9 - Chronic obstructive pulmonary disease, unspecified Fever Qualifiers: Fever type: unspecified Qualified Code(s): R50.9 - Fever, unspecified Condition: Stable Disposition: HOME, SELF-CARE Additional Instructions: Your symptoms are likely due to a viral infection either influenza or similar virus. The only treatment at this time is supportive care including drinking plenty of fluids, Tylenol and ibuprofen. Your formal influenza testing is currently pending. You have declined receiving Tamiflu after our conversation today. Your symptoms will likely last for 7-10 days. Please return to the emergency department immediately if you become confused, have persistent vomiting, pass out, have severe headache, or have any other symptoms that are worrisome to you. Follow-up with your primary care doctor in the next several days. Referrals: ERICA REAL MD [ACTIVE STAFF] - Follow up as needed
[2018-07-27] MEDS ORDERED: DOXYCYCLINE HYCLATE 100 MG TABLET PO ONE (23:11)
[2018-07-27 23:42] VITALS: BP 118/78
[2018-07-27 23:44] LABS: A TYPE INFLUENZA AG NEGATIVE (NEGATIVE); B INFLUENZA AG NEGATIVE (NEGATIVE)
--- NOTE | 2018-07-28 08:50 | EKG REPORT ---
SEVERITY:- ABNORMAL ECG - SINUS RHYTHM FIRST DEGREE AV BLOCK BORDERLINE T ABNORMALITIES, ANT-LAT LEADS : Confirmed by: Harvinder Allison MD 28-Jul-2018 08:49:52
--- NOTE | 2018-07-28 09:58 | XCELERA REPORT ---
[address] [facility] [address] Lower Extremity Venous Evaluation Procedure: Color flow and duplex imaging bilaterally of the veins of the lower extremities as well as the Common Femoral veins. Right Sided Venous Evaluation Normal vessel filling wall to wall, compression and augmentation as well as Colour flow down to the infrageniculate veins. Left Sided Venous Evaluation Normal vessel filling wall to wall, compression and augmentation as well as Colour flow down to the infrageniculate veins. Interpretation Summary No duplex evidence of DVT or obstruction in the bilateral lower extremities. Name: ARIELLA JUAREZ Age: 53 yrs Gender: Female : 1965 Patient Status: Emergency Patient Location: ER Study Date: 07/27/2018 09:03 PM Reason For Study: Patient complains of lower leg pain Ordering Physician: TONYA MIN Performed By: Roro Wilson : TONYA MIN > Jhonny Parrish
== END 2018-07-27 23:45 | disposition home or self-care (01) ==
LOC: ER 19:10
DX: J44.9 Chronic obstructive pulmonary disease, unspecified (principal); R50.9 Fever, unspecified; R06.02 Shortness of breath; R19.7 Diarrhea, unspecified; E78.00 Pure hypercholesterolemia, unspecified; I50.9 Heart failure, unspecified; I69.354 Hemiplegia and hemiparesis following cerebral infarction affecting left non-dominant side; Z99.81 Dependence on supplemental oxygen; Z85.3 Personal history of malignant neoplasm of breast
CPT/HCPCS: 93005; 99285; 36415; 82553; 82550; 85025; 80053; 81001; 84484; 80307; 87804; 93970 ×2; 71046; 93010; A9270

== ENCOUNTER → 2018-07-31 | Outpatient (CLI) | payer MEDICARE, MEDICAID ==
--- NOTE | 2018-07-31 15:48 | RADIOLOGY REPORT (SQ) ---
EXAM DESCRIPTION: CT CHEST WITHOUT COMPLETED DATE/TIME: 07/31/2018 1:36 pm REASON FOR STUDY: PULMONARY INFILTRATE, COPD R91.8 OTHER NONSPECIFIC ABNORMAL FINDING OF LUNG FIELD J44.9 CHRONIC OBSTRUCTIVE PULMONARY DISEASE, UNSPECIFIED COMPARISON: 07/27/2018 TECHNIQUE: CT scan performed of the chest without intravenous contrast. Images reviewed with lung, soft tissue and bone windows. Reconstructed coronal and sagittal MPR images reviewed. All images st ored on PACS. All CT scanners at this facility use dose modulation, iterative reconstruction, and/or weight based d osing when appropriate to reduce radiation dose to as low as reasonably achievable (ALARA). [facility]: Dose Right [facility]: CareDose [facility]: Dose Right [facility]: Teradose 4D [facility]: [employer] RADIATION DOSE: CT Rad equipment meets quality standard of care and radiation dose reduction techniq ues were employed. CTDIvol: 3.2 mGy. DLP: 125 mGy-cm. mGy. LIMITATIONS: No technical limitations. FINDINGS: LUNGS AND PLEURA: A bilobed spiculated right upper lobe pulmonary nodule. The largest med ial nodular component measures 8 mm (series 4, image 28), previously 5 mm. There is a additional 3 m m right upper lobe pulmonary nodule (series 4, image 33). There is a cavitary spiculated nodule with in the right medial lower lobe measuring 6 mm (series 4, image 65). Upper lobe predominant centrilob ular and panacinar emphysema. No dense focal consolidation. No significant pleural effusion. No pn eumothorax. . HILAR AND MEDIASTINAL STRUCTURES: Shotty mediastinal nodes without discrete adenopathy. No discrete perihilar or axillary adenopathy. HEART AND VASCULAR STRUCTURES: Small pericardial effusion. Normal heart size. No significant pate ry atherosclerosis. UPPER ABDOMEN: No evidence of acute intra-abdominal process. THYROID AND OTHER SOFT TISSUES: No masses. No adenopathy. BONES: No acute bony abnormality. No suspicious osseous lesions. HARDWARE: Surgical clips in the left axilla. OTHER: Status post bilateral mastectomy. IMPRESSION: 1. Pulmonary nodules as detailed above. Largest 8 mm right upper lobe and 6 mm right l ower lobe nodules are suspicious for malignancy. PET-CT or biopsy could be considered for further ch aracterization. 2. Shotty mediastinal lymph nodes without discrete adenopathy. 3. Emphysema. TECHNICAL DOCUMENTATION: JOB ID: [id number] Quality ID # [id number]: Final reports with documentation of one or more dose reduction techniques (e.g., Au tomated exposure control, adjustment of the mA and/or kV according to patient size, use of iterative reconstruction technique) 2010 [employer]- All Rights Reserved Reading location - IP/workstation name: [email or web address]Paul
== END ==
LOC: RAD 13:19
PROVIDERS: ATTEND Internal Medicine Critical Care Medicine
DX: R91.8 Other nonspecific abnormal finding of lung field (principal); J44.9 Chronic obstructive pulmonary disease, unspecified
CPT/HCPCS: 71250

== ENCOUNTER → 2018-08-07 | Outpatient (CLI) | payer MEDICARE, MEDICAID ==
--- NOTE | 2018-08-08 09:55 | RADIOLOGY REPORT (SQ) ---
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 TECHNIQUE: Blood glucose level was verified. Above dose of FDG was injected intravenously. 2-D seg mented attenuation correction images were obtained from the base of the skull to the midthighs. Nonc ontrast CT images were obtained for attenuation correction and fusion with emission images. CT image s were performed without oral or intravenous contrast and are not sensitive for parenchymal lesions. A series of overlapping emission PET images were obtained. Images reviewed and manipulated at [facility] work station by the radiologist. Images stored on PACS. LIMITATIONS: None. FINDINGS: HEAD AND NECK: No areas of abnormal metabolic activity in the soft tissues of the head and neck. CHEST: In the posterior aspect right upper lobe, an 8 x 11 mm nodule is present on axial image 69 wit h SUV of 3.1. This is worrisome for malignancy. Other smaller subcentimeter lung parenchymal nodules described on 07/31/2018 are non metabolic. No metabolically active worrisome hilar or mediastinal lymph nodes. No axillary adenopathy. Post bi lateral mastectomy. No chest wall abnormal activity. ABDOMEN AND PELVIS: No areas of abnormal metabolic activity in the abdomen or pelvis. Expected physi ologic activity is present in the genitourinary system and bowel. PROXIMAL LOWER EXTREMITIES: No areas of abnormal metabolic activity in the soft tissues of the lower extremities. BONES: No abnormal metabolic activity in the visualized skeleton. ADDITIONAL CT FINDINGS: Bilateral mastectomy. Left humeral head replacement. OTHER: Liver background activity 1.8 SUV. Blood pool background activity 1.2 SUV IMPRESSION: 8 x 11 mm posterior right upper lobe nodule with metabolic activity worrisome for malign steph. TECHNICAL DOCUMENTATION: JOB ID: [id number] [employer]- All Rights Reserved Reading location - IP/workstation name: [email or web address]
== END ==
LOC: RAD 18:28
PROVIDERS: ATTEND Internal Medicine Medical Oncology
DX: C50.919 Malignant neoplasm of unspecified site of unspecified female breast (principal); Z90.13 Acquired absence of bilateral breasts and nipples; R91.1 Solitary pulmonary nodule
CPT/HCPCS: 78815; A9552

== ENCOUNTER 2018-08-13 12:27 | Observation (INO) | payer MEDICARE, MEDICAID ==
--- NOTE | 2018-08-13 12:57 | RADIOLOGY REPORT (SQ) ---
EXAM DESCRIPTION: CT HEAD WITHOUT COMPLETED DATE/TIME: 08/13/2018 12:38 pm REASON FOR STUDY: bed 19 stroke alert COMPARISON: CT 08/22/2013. MR 08/22/2013. TECHNIQUE: Axial images acquired through the brain without intravenous contrast. Images reviewed wi th bone, brain and subdural windows. Additional sagittal and coronal reconstructions were generated. Images stored on PACS. All CT scanners at this facility use dose modulation, iterative reconstruction, and/or weight based d osing when appropriate to reduce radiation dose to as low as reasonably achievable (ALARA). [facility]: Dose Right [facility]: CareDose [facility]: Dose Right [facility]: Teradose 4D [facility]: Smart Technologies RADIATION DOSE: CT Rad equipment meets quality standard of care and radiation dose reduction techniq ues were employed. CTDIvol: 53.2 mGy. DLP: 1097 mGy-cm. mGy. LIMITATIONS: None. FINDINGS: VENTRICLES: Normal size and contour. CEREBRUM: No masses. No hemorrhage. No midline shift. No evidence for acute infarction. Normal gra y/white matter differentiation. No areas of low density in the white matter. CEREBELLUM: No masses. No hemorrhage. No alteration of density. No evidence for acute infarction. EXTRAAXIAL SPACES: No fluid collections. No masses. ORBITS AND GLOBE: No intra- or extraconal masses. Normal contour of globe without masses. CALVARIUM: No fracture. PARANASAL SINUSES: No fluid or mucosal thickening. SOFT TISSUES: No mass or hematoma. OTHER: No other significant finding. IMPRESSION: NORMAL BRAIN CT WITHOUT CONTRAST. EVIDENCE OF ACUTE STROKE: NO. COMMENT: Pertinent positive or negative findings of the imaging study reported as a CRITICAL EXAM rose DAVILA MD at12:51 on 08/13/2018. Category of Critical Exam: Stroke protocol. Quality ID # [id number]: Final reports with documentation of one or more dose reduction techniques (e.g., Au tomated exposure control, adjustment of the mA and/or kV according to patient size, use of iterative reconstruction technique) TECHNICAL DOCUMENTATION: JOB ID: [id number] [employer]- All Rights Reserved Reading location - IP/workstation name: [email or web address]
--- NOTE | 2018-08-13 13:01 | ER Document Report ---
ED Neuro Symptoms/Deficit - General Stated Complaint: WEAKNESS Time Seen by Provider: 08/13/18 12:28 Primary Care Provider: MEGAN FLORES MD [ACTIVE STAFF] - Follow up as needed Notes: 53-year-old female with a history of stroke and TIA breast cancer [place] presents with left-sided numbness tingling and weakness. The patient was at the dentist office getting ready for a dental procedure when she began to have left-sided numbness and weakness. She began having trouble talking. According to EMS they were dispatched at 1120. They stated that the dentist office called 911 immediately upon discovering the patient's condition. The patient stated she has had prior strokes back in 1999 with some residual left-sided weakness but usually is pretty functional states the weakness is new. She is numb throughout her left side. She also complains of severe headache. There is a left facial numbness trouble talking. TRAVEL OUTSIDE OF THE [place] IN LAST 30 DAYS: No - Related Data Allergies/Adverse Reactions: prednisone [Prednisone] Adverse Reaction (Intermediate, Verified 08/13/18 13:01) Past Medical History - Social History Smoking Status: Former Smoker Family History: Hypertension - Past Medical History Cardiac Medical History: Reports: Hx Congestive Heart Failure, Hx Hypercholesterolemia Denies: Hx Coronary Artery Disease, Hx Heart Attack, Hx Hypertension Pulmonary Medical History: Reports: Hx Asthma, Hx Bronchitis, Hx COPD, Hx Pneumonia Denies: Hx Respiratory Failure, Hx Sleep Apnea, Hx Tuberculosis Neurological Medical History: Reports: Hx Cerebrovascular Accident - WEAKNESS ON LEFT SIDE. Denies: Hx Seizures Endocrine Medical History: Renal/ Medical History: Reports: Hx Ovarian Cysts. Denies: Hx Peritoneal Dialysis Malignancy Medical History: Reports: Hx Breast Cancer GI Medical History: Reports: Hx Gastroesophageal Reflux Disease, Hx Hiatal Hernia Musculoskeletal Medical History: Denies Hx Arthritis, Denies Hx Multiple Sclerosis Psychiatric Medical History: Reports: Hx Depression Denies: Hx Dementia Infectious Medical History: Past Surgical History: Reports: Hx Mastectomy - bilat 2010, Hx Orthopedic Main rgery - left shoulder replacement 09/10. Denies: Hx Hysterectomy, Hx Pacemaker - Immunizations Hx Diphtheria, Pertussis, Tetanus Vaccination: No Hx Pneumococcal Vaccination: 06/26/11 Review of Systems - Review of Systems Constitutional: denies: Chills, Fever EENT: Blurred vision Cardiovascular: denies: Chest pain Respiratory: denies: Short of breath Gastrointestinal: denies: Nausea, Vomiting Genitourinary: denies: Dysuria Neurological/Psychological: Sensory change, Weakness, Loss of power, Headaches, Numbness -: Yes All other systems reviewed and negative Course - Re-evaluation Re-evalutation: 08/13/18 14:29 Initially when the patient came she had left-sided deficits. The patient was monitored for a period of time at about 1400 hrs. she resolved completely. She has a history of stroke and TIAs in the past. Patient is 100% resolved. We will give her an aspirin. [facility] the [facility]. Initially the patient was a candidate for TPA because she is on Xarelto. The patient is now is completely resolved and no longer would be a candidate for intervention. 08/13/18 15:14 Patient is completely resolved. I think it is best to observe her overnight this is likely a TIA. Her stroke score is now 0. She will be given aspirin. We will monitor her overnight she will likely need MRI carotid Dopplers. I spoken with Dr. Steen and he is agreeable to observe the patient. - Laboratory Result Diagrams: 08/13/18 13:15 08/13/18 13:15 - Diagnostic Test Radiology reviewed: Reports reviewed Radiology results interpreted by me: 08/13/18 14:30 Chest X-Ray 08/13/18 12:28 IMPRESSION: Chronic lung changes with no acute cardiopulmonary findings. Head CT 08/13/18 12:28 IMPRESSION: NORMAL BRAIN CT WITHOUT CONTRAST. EVIDENCE OF ACUTE STROKE: NO. - EKG Interpretation by Me EKG shows normal: Sinus rhythm Rhythm: NSR When compared to previous EKG there are: No significant change Critical Care Note - Critical Care Note Total time excluding time spent on procedures (mins): 32 Comments: Called to the bedside for acute strokelike symptoms patient was evaluated for possible acute TPA administration due to acute stroke. Patient symptoms have resolved and the patient was not a candidate for TPA due to Xarelto. ED NIH Stroke Scale - NIH Stroke Scale *: 1. NIH scale should be completed with appropriate accompanying assessment tools. *: 2. The NIH should reflect what the patient is capable of doing and should not be coached by the clinician. 1a. Level of Consciousness: 0=Alert;keenly responsive -: 1=Drowsy -: 2=Obtunded -: 3=Coma/unresponsive or reflex to noxious stimuli. 1a. Responses: 0 1b. Orientation Questions: a. What month is it? -: b. How old are you? -: 0=Answers both questions correctly. -: 1=Answers one question correctly or patient is intubated or has orotracheal trauma. -: 2=Answers neither question correctly. 1b. Responses: 0 1c. Response to commands: a. Open and close eyes? -: b. Director Of Provider Relations and release hand? -: Credit is given despite weakness. Demonstration of task is permitted. Substitute command if hands cannot be used. -: 0=Performs both tasks correctly -: 1=Performs one task correctly -: 2=Performs neither task correctly 1c. Responses: 0 2. Gaze: Establish eye contact and instruct patient to "Follow my finger" -: 0=Normal -: 1=Partial gaze palsy. Gaze is abnormal in one or both eyes, but where forced deviation or total gaze paresis is not present. -: 2=Forced deviation or total gaze paresis. 2. Responses: 0 3. Visual Flowers: Sees fingers in all four quadrants. -: 0=No visual loss. -: 1=Partial hemianopsia. -: 2=Complete hemianopsia. -: 3=Bilateral hemianopsia (including Cortical blindness) 3. Responses: 0 4. Facial Movement: Instruct patient to: -: a. Show me your teeth -: b. Raise your eyebrows -: c. Close your eyes -: d. Smile -: 0=Normal symmetrical movement -: 1=Minor paralysis (flattened nasolabial fold, asymmetry on smiling). -: 2=Partial paralysis (total or near total paralysis of lower face). -: 3=Complete paralysis of upper and lower face 4. Responses: 0 5. Motor functions (left arm): Alternate sides and extend each arm with palms down (90 degrees if sitting or 45 degrees for supine). -: 0=No drift;limb holds for full 10 seconds. -: 1=Drift; limb holds but drifts down before full 10 seconds, but does not hit bed. -: 2=Some effort against gravity; limb cannot get to or maintain position. -: 3=No effort against gravity; limb falls. -: 4=No movement. -: UN=Amputation, joint fusion, explain in comments. 5. Responses (left arm): 1 5. Motor Functions (right arm): Alternate sides and extend each arm with palms down (90 degrees if sitting or 45 degrees for supine). -: 0=No drift;limb holds for full 10 seconds. -: 1=Drift; limb holds but drifts down before full 10 seconds, but does not hit bed. -: 2=Some effort against gravity; limb cannot get to or maintain position. -: 3=No effort against gravity; limb falls. -: 4=No movement. -: UN=Amputation, joint fusion, explain in comments. 5. Responses (right arm): 0 6. Motor Functions (left leg): With patient lying supine, alternate sides and extend each leg (30 degrees always while supine). -: 0=No drift, leg holds position for full 5 seconds -: 1=Drift; leg falls before full 5 seconds but does not hit bed. -: 2=Some effort against gravity, leg falls to bed but some effort against gravity. -: 3=No effort against gravity, leg falls to bed immediately. -: 4=No movement. -: UN=Amputation, joint fusion; explain in comments. 6. Responses (left leg): 1 6. Motor Functions (right leg): With patient lying supine, alternate sides and extend each leg (30 degrees always while supine). -: 0=No drift, leg holds position for full 5 seconds -: 1=Drift; leg falls before full 5 seconds but does not hit bed. -: 2=Some effort against gravity, leg falls to bed but some effort against gravity. -: 3=No effort against gravity, leg falls to bed immediately. -: 4=No movement. -: UN=Amputation, joint fusion; explain in comments. 6. Responses (right leg): 0 7. Limb Ataxia: With eyes open instruct patient to: -: a. "Touch your finger to your nose". -: b. "Touch your heel to your rosales" -: 0=Absent -: 1=Present in one limb. -: 2=Present in two limbs. -: UN=Amputation or joint fusion; explain in comments. 7. Responses: 0 8. Sensory: Test sensation using pinprick or noxious stimuli. Test as many body parts as possible. -: 0=Normal;no sensory loss -: 1=Mile to moderate sensory loss (patient feels pin prick but is less sharp on affected side). -: 2=Severe or total sensory loss. 8. Responses: 1 9. Best Language: Instruct patient to: -: a. "Describe what you see in this picture." -: b. "Name the items in this picture." -: c. "Read these sentences." -: 0=No aphasia, normal -: 1=Mild to moderate aphasia. -: 2=Severe aphasia -: 3=Mute, global aphasia, no usable speech or auditory comprehension. 9. Responses: 1 10. Articulation, Dysarthia: Instruct patient to: -: "Read these words" or "Repeat these words" -: 0=Normal -: 1=Mild to moderate; patient may slur some words but can be understood without difficulty. -: 2=Severe; patients speech so slurred as to be unintelligible in the absence of dysphasia. -: UN=Intubated or other physical barrier, explain in comments. 10. Responses: 1 11. Extinction or inattention: 0=No abnormality -: 1= Visual, tactile, auditory, spatial, or personal inattention or extinction to bilateral simulation in one or the sensory modalities. -: 2=Profound khang-inattention or khang-inattention to more than one modality; does not recognize own hand. 11. Responses: 0 Total Score: 5 Discharge - Discharge Clinical Impression: TIA (transient ischemic attack) Condition: Good Disposition: ADMITTED OBSERVATION Admitting Provider: [facility] Admitted: Telemetry Referrals: MEGAN FLORES MD [ACTIVE STAFF] - Follow up as needed
--- NOTE | 2018-08-13 13:06 | RADIOLOGY REPORT (SQ) ---
EXAM DESCRIPTION: CHEST SINGLE VIEW COMPLETED DATE/TIME: 08/13/2018 12:53 pm REASON FOR STUDY: bed 19 stroke alert COMPARISON: 07/27/2018 EXAM PARAMETERS: NUMBER OF VIEWS: One view. TECHNIQUE: Single frontal radiographic view of the chest acquired. RADIATION DOSE: NA LIMITATIONS: None. FINDINGS: LUNGS AND PLEURA: The lungs are hyperexpanded. There is no infiltrate or effusion. There is no mass. MEDIASTINUM AND HILAR STRUCTURES: No masses. Contour normal. HEART AND VASCULAR STRUCTURES: Heart normal in size. Normal vasculature. BONES: No acute findings. HARDWARE: None in the chest. OTHER: No other significant finding. IMPRESSION: Chronic lung changes with no acute cardiopulmonary findings. TECHNICAL DOCUMENTATION: JOB ID: [id number] [employer]- All Rights Reserved Reading location - IP/workstation name: [email or web address]
[2018-08-13 13:35] LABS: ABSOLUTE BASOPHILS # (AUTO) 0.1 10^3/uL (0.0-0.2); ABSOLUTE EOSINOPHILS # (AUTO) 0.1 10^3/uL (0.0-0.6); ABSOLUTE LYMPHOCYTES (AUTO) 2.1 10^3/uL (0.5-4.7); ABSOLUTE MONOCYTES (AUTO) 0.4 10^3/uL (0.1-1.4); EOSINOPHILS % (AUTO) 1.5 % (0-6); HEMATOCRIT 35.4 % (36.0-47.0); HEMOGLOBIN 11.4 g/dL (12.0-15.5); LYMPHOCYTES % (AUTO) 31.4 % (13-45); MEAN CORPUSCULAR HGB CONC 32.1 g/dL (32.0-36.0); MEAN CORPUSCULAR VOLUME 93 fl (80-97); MONOCYTES % (AUTO) 6.1 % (3-13); PLATELET COUNT 355 10^3/uL (150-450); RED CELL DISTRIBUTION WIDTH 16.2 % (11.5-14.0); TOTAL CELLS COUNTED % (AUTO) 100 %; WHITE BLOOD COUNT 6.7 10^3/uL (4.0-10.5)
[2018-08-13 13:37] LABS: INTERNATIONAL RATION (INR) 1.15; PARTIAL THROMBOPLASTIN TIME 25.7 SEC (23.5-35.8)
[2018-08-13 13:40] LABS: PROTHROMBIN TIME 15.3 SEC (11.4-15.4)
[2018-08-13 13:52] LABS: ALANINE AMINOTRANSFERASE 23 U/L (9-52); ALKALINE PHOSPHATASE 59 U/L (38-126); ANION GAP 9 (5-19); ASPARTATE AMINO TRANSFERASE 21 U/L (14-36); BILIRUBIN,DIRECT 0.2 mg/dL (0.0-0.4); BILIRUBIN,TOTAL 0.6 mg/dL (0.2-1.3); BLOOD UREA NITROGEN 4 mg/dL (7-20); CALCIUM 8.9 mg/dL (8.4-10.2); CARBON DIOXIDE 23 mmol/L (22-30); CHLORIDE 109 mmol/L (98-107); CREATINE KINASE 42 U/L (30-135); GLUCOSE 85 mg/dL (75-110); POTASSIUM 3.2 mmol/L (3.6-5.0); SODIUM 141.4 mmol/L (137-145)
[2018-08-13 14:11] LABS: CREATINE KINASE MB < 0.22 ng/mL (<4.55); TROPONIN I < 0.012 ng/mL
[2018-08-13] MEDS ORDERED: POTASSIUM CHLORIDE 10 MEQ CAPSULE.ER PO ONE (14:28)
[2018-08-13] MEDS ORDERED: ASPIRIN 81 MG TABLET, CHEWABLE PO ONE (14:45)
--- NOTE | 2018-08-13 16:51 | PDOC H&P ---
History of Present Illness Admission Date/PCP: 08/13/18 15:21 LUKASZ OSUNKA Patient complains of: Left-sided numbness, tingling, and weakness History of Present Illness: ARIELLA JUAREZ is a 53 year old female patient known to my practice who presented to the ED via EMS service due to development of left sided weakness, numbness and tingling. Patient reported that she developed left facial numbness and tingling earlier this morning on her way to a dental appointment. She claimed associated palpitation but denied any definite chest pain. She reported occipital region headache and blurry vision earlier this morning. She reported that she feel asleep but not definite about loss of consciousness or seizure activities. EMS staff reported that dental office activated the system due to patient's development of difficulty with talking and she was found with left sided weakness upon their arrival. Her initial evaluation in the ED was unrevealing. Her symptoms resolved before her evaluation and imaging study were unrevealing for acute process. Her EKG did revealed borderline prolonged QT interval. Due to her morbidities including Congestive Heart Failure, Hyperlipidemia, COPD, old CVA with left hemiparesis, breast cancer with bilateral mastectomy, GERD and hiatus hernia she was advised hospitalization to observation bed for further evaluation and management. Past Medical History Cardiac Medical History: Reports: Congestive Heart Failure, Hyperlipidema Denies: Coronary Artery Disease, Myocardial Infarction, Hypertension Pulmonary Medical History: Reports: Asthma, Bronchitis, Chronic Obstructive Pulmonary Disease (COPD), Pneumonia Denies: Respiratory Failure, Sleep Apnea, Tuberculosis Neurological Medical History: Denies: Seizures Endocrine Medical History: Malignancy Medical History: Reports: Breast Cancer GI Medical History: Reports: Gastroesophageal Reflux Disease, Hiatal Hernia Musculoskeltal Medical History: Denies: Arthritis Psychiatric Medical History: Reports: Depression Denies: Dementia Hematology: Denies: Anemia Past Surgical History Past Surgical History: Reports: Mastectomy - bilat 2010, Orthopedic Surgery - left shoulder replacement 09/10 Denies: Hysterectomy, Pacemaker Social History Smoking Status: Former Smoker Frequency of Alcohol Use: Social Hx Recreational Drug Use: No Drugs: None Hx Prescription Drug Abuse: No Family History Family History: Hypertension Parental Family History Reviewed: Yes Children Family History Reviewed: Yes Sibling(s) Family History Reviewed.: Yes Medication/Allergy Home Medications: Albuterol Sulfate [Proair HFA Inhalation Aerosol 8.5 gm MDI] 2 puff IH Q4HP PRN 06/15/18 Anastrozole [Arimidex 1 mg Tablet] 1 mg PO DAILY 06/15/18 Diltiazem HCl [Cartia Xt] 120 mg PO DAILY 06/15/18 Ferrous Sulfate [Feosol 325 mg Tablet] 325 mg PO DAILY 06/15/18 Lansoprazole 30 mg PO Q6AM 06/15/18 Lisinopril [Prinivil 10 mg Tablet] 10 mg PO DAILY 06/15/18 Metoprolol Succinate [Toprol Xl] 25 mg PO Q12 06/15/18 Montelukast Sodium [Singulair 10 mg Tablet] 10 mg PO QPM 06/15/18 Rivaroxaban [Xarelto] 20 mg PO WSUPPER 06/15/18 Tiotropium [place] [Spiriva Respimat] 2 spray NASL DAILY 06/15/18 Azelastine HCl 2 spray NS BID 06/19/18 Benzonatate [Tessalon Perles 100 mg Capsule] 200 mg PO TIDP PRN 06/19/18 Levalbuterol HCl [Xopenex] 1.25 mg IH Q4HP PRN 06/19/18 Azithromycin [Zithromax 250 mg Tablet] 250 mg PO QPM #5 tablet 06/21/18 Fluticasone/Umeclidin/Vilanter [Trelegy 100-62.5-25 Mcg Ellipta 14 Dose/Dpi] 1 inh IH DAILY #1 inhaler 06/21/18 Magnesium Oxide [Mag-Ox 400 mg Tablet] 400 mg PO Q2DAYS #0 06/21/18 Methylprednisolone [Medrol Dosepack (4 mg/Tab) 21 Tab/Dosepak] 4 mg PO ASDIR PRN #21 tab.ds.pk 06/21/18 Allergies/Adverse Reactions: prednisone [Prednisone] Adverse Reaction (Intermediate, Verified 08/13/18 13:01) Review of Systems Constitutional: PRESENT: headache(s), weakness Eyes: PRESENT: visual disturbances Ears: ABSENT: hearing changes Nose, Mouth, and Throat: PRESENT: headache(s). ABSENT: as per HPI, mouth pain, sore throat, vertigo, other Cardiovascular: ABSENT: chest pain, dyspnea on exertion, edema, orthropnea, palpitations Respiratory: ABSENT: cough, hemoptysis Gastrointestinal: ABSENT: abdominal pain, constipation, diarrhea, hematemesis, hematochezia, nausea, vomiting Genitourinary: ABSENT: dysuria, hematuria Musculoskeletal: ABSENT: joint swelling Integumentary: ABSENT: rash, wounds Neurological: PRESENT: numbness, tingling, weakness - left sided. ABSENT: as per HPI, abnormal gait, abnormal movements, abnormal speech, confusion, convulsions, dizziness, focal weakness, frequent falls, lack of coordination, memory loss, paresthesias, restless legs, syncope, tremor(s), vertigo, other Psychiatric: ABSENT: anxiety, depression, homidical ideation, suicidal ideation Endocrine: ABSENT: cold intolerance, heat intolerance, polydipsia, polyuria Hematologic/Lymphatic: ABSENT: easy bleeding, easy bruising, lymphadenopathy Allergic/Immunologic: ABSENT: seasonal rhinorrhea Physical Exam Vital Signs: Temp Pulse Resp BP Pulse Ox 98.0 F 82 22 H 132/83 H 97 08/13/18 13:19 08/13/18 15:00 08/13/18 15:01 08/13/18 15:00 08/13/18 15:01 Intake & Output 08/12/18 08/13/18 08/14/18 06:59 06:59 06:59 Weight 48.988 kg General appearance: PRESENT: no acute distress, well-developed, well-nourished Head exam: PRESENT: atraumatic, normocephalic Eye exam: PRESENT: conjunctiva pink, EOMI, PERRLA. ABSENT: scleral icterus Ear exam: PRESENT: normal external ear exam. ABSENT: bleeding, drainage, TM's normal bilaterally, other Mouth exam: PRESENT: moist. ABSENT: dry mucosa, laceration, neck supple, tongue midline, other Teeth exam: PRESENT: poor dentation Throat exam: ABSENT: post pharyngeal erythema, tonsillar erythema, tonsillar exudate, tonsillogmegaly, other Neck exam: PRESENT: full ROM. ABSENT: carotid bruit, JVD, lymphadenopathy, thyromegaly Respiratory exam: PRESENT: clear to auscultation darinel Cardiovascular exam: PRESENT: RRR. ABSENT: diastolic murmur, rubs, systolic murmur Pulses: PRESENT: normal dorsalis pedis pul, +2 pedal pulses bilateral Vascular exam: PRESENT: normal capillary refill. ABSENT: pallor GI/Abdominal exam: PRESENT: normal bowel sounds, soft. ABSENT: distended, guarding, mass, organolmegaly, rebound, tenderness Rectal exam: PRESENT: deferred Extremities exam: ABSENT: pedal edema Musculoskeletal exam: PRESENT: ambulatory - with straight cane assistance Neurological exam: PRESENT: alert, awake, oriented to person, oriented to place, oriented to time, oriented to situation, CN II-XII grossly intact, other - left hemiparesis that compaatively is not more conteh usual weakness from prior stroke.. ABSENT: motor sensory deficit Psychiatric exam: PRESENT: appropriate affect, normal mood. ABSENT: homicidal ideation, suicidal ideation Skin exam: PRESENT: dry, intact, warm. ABSENT: cyanosis, rash Results Laboratory Results: 08/13/18 13:15 08/13/18 13:15 08/13/18 08/13/18 13:15 13:15 WBC 6.7 RBC 3.80 Hgb 11.4 L Hct 35.4 L MCV 93 MCH 30.0 MCHC 32.1 RDW 16.2 H Plt Count 355 Seg Neutrophils % 60.0 Lymphocytes % 31.4 Monocytes % 6.1 Eosinophils % 1.5 Basophils % 1.0 Absolute Neutrophils 4.0 Absolute Lymphocytes 2.1 Absolute Monocytes 0.4 Absolute Eosinophils 0.1 Absolute Basophils 0.1 Sodium 141.4 Potassium 3.2 L Chloride 109 H Carbon Dioxide 23 Anion Gap 9 BUN 4 L Creatinine 0.50 L Est GFR ( Amer) > 60 Est GFR (Non-Af Amer) > 60 Glucose 85 Calcium 8.9 Total Bilirubin 0.6 AST 21 ALT 23 Alkaline Phosphatase 59 Total Protein 6.0 L Albumin 3.0 L 08/13/18 08/13/18 13:15 13:15 Creatine Kinase 42 CK-MB (CK-2) < 0.22 Troponin I < 0.012 Impressions: Chest X-Ray 08/13/18 12:28 IMPRESSION: Chronic lung changes with no acute cardiopulmonary findings. Head CT 08/13/18 12:28 IMPRESSION: NORMAL BRAIN CT WITHOUT CONTRAST. EVIDENCE OF ACUTE STROKE: NO. Assessment & Plan - Diagnosis (1) TIA (transient ischemic attack) Is this a current diagnosis for this admission?: Yes Plan: See admitting attending physician orders. She will get brain MRI and Carotid Doppler evaluation. Maintain on Xarelto and start on Ecotrin 81 mg po daily. (2) CVA, old, hemiparesis Is this a current diagnosis for this admission?: Yes Plan: Maintain on preadmission medication management. (3) Essential hypertension Is this a current diagnosis for this admission?: Yes Plan: Maintain on preadmission medication management. (4) HLD (hyperlipidemia) Qualifiers: Hyperlipidemia type: unspecified Qualified Code(s): E78.5 - Hyperlipidemia, unspecified Is this a current diagnosis for this admission?: Yes Plan: Maintain on preadmission medication management. (5) COPD (chronic obstructive pulmonary disease) Qualifiers: COPD type: unspecified COPD Qualified Code(s): J44.9 - Chronic obstructive pulmonary disease, unspecified Is this a current diagnosis for this admission?: Yes Plan: Maintain on preadmission medication management. (6) GERD (gastroesophageal reflux disease) Qualifiers: Esophagitis presence: without esophagitis Qualified Code(s): K21.9 - Gastro-esophageal reflux disease without esophagitis Is this a current diagnosis for this admission?: Yes Plan: Maintain on preadmission medication management. (7) Status post bilateral mastectomy Is this a current diagnosis for this admission?: Yes Plan: Maintain on preadmission medication management. - Time Time Spent: 50 to 70 Minutes Medications reviewed and adjusted accordingly: Yes Anticipated discharge: Home with Homehealth Within: Other - Inpatient Certification Based on my medical assessment, after consideration of the patient's comorbidities, presenting symptoms, or acuity I expect that the services needed warrant INPATIENT care.: No I certify that my determination is in accordance with my understanding of Medicare's requirements for reasonable and necessary INPATIENT services [42 CFR 412.3e].: No Medical Necessity: Significant Comorbidiites Make Outpatient Treatment Too Risky, Need Close Monitoring Due to Risk of Patient Decompensation, Need For IV Fluids, Need For Continuous Telemetry Monitoring, Need for Neurological Checks, Risk of Complication if Not Cared For in Hospital, Risk of Diagnosis Which Will Require Inpatient Eval/Care/Monitoring Post Hospital Care: D/C Car [facility]ower Documentation - Plan Summary Plan Summary: See admitting attending physician orders as per above outlined care plan which I discussed with the patient at bedside and agreeable to. Maintain on preadmission medication management.
--- NOTE | 2018-08-13 17:08 | EKG REPORT ---
SEVERITY:- BORDERLINE ECG - SINUS RHYTHM BORDERLINE PROLONGED QT INTERVAL : Confirmed by: Harvinder Allison MD 13-Aug-2018 17:07:42
[2018-08-13] MEDS ORDERED: ALBUTEROL SULFATE 0.083% NEB 2.5 MG/3 ML AMPUL NEB PRN (17:13)
[2018-08-13] MEDS ORDERED: ALBUTEROL SULFATE HFA (90 MCG/PUFF) 200 PUFF/8.5 GM MDI IH PRN (17:13)
[2018-08-13] MEDS: RIVAROXABAN 10 MG TABLET PO SCH (21:09)
[2018-08-13] MEDS ORDERED: METOPROLOL SUCCINATE 25 MG TAB.SR.24H PO SCH (22:00)
[2018-08-13] MEDS: MONTELUKAST SODIUM 10 MG TABLET PO SCH (22:06)
[2018-08-14] MEDS: LANSOPRAZOLE 30 MG TAB.RAP.DR PO SCH (06:17)
[2018-08-14 06:54] LABS: ABSOLUTE BASOPHILS # (AUTO) 0.1 10^3/uL (0.0-0.2); ABSOLUTE EOSINOPHILS # (AUTO) 0.4 10^3/uL (0.0-0.6); ABSOLUTE LYMPHOCYTES (AUTO) 2.8 10^3/uL (0.5-4.7); ABSOLUTE MONOCYTES (AUTO) 0.5 10^3/uL (0.1-1.4); ABSOLUTE NEUT (AUTO) 1.6 10^3/uL (1.7-8.2); BASOPHILS % (AUTO) 1.5 % (0-2); EOSINOPHILS % (AUTO) 6.6 % (0-6); HEMOGLOBIN 10.6 g/dL (12.0-15.5); LYMPHOCYTES % (AUTO) 51.8 % (13-45); MEAN CORPUSCULAR HEMOGLOBIN 30.2 pg (27.0-33.4); MEAN CORPUSCULAR HGB CONC 32.9 g/dL (32.0-36.0); MEAN CORPUSCULAR VOLUME 92 fl (80-97); MONOCYTES % (AUTO) 9.5 % (3-13); PLATELET COUNT 321 10^3/uL (150-450); RED CELL DISTRIBUTION WIDTH 15.6 % (11.5-14.0); SEGMENTED NEUTROPHILS % (AUTO) 30.6 % (42-78); TOTAL CELLS COUNTED % (AUTO) 100 %; WHITE BLOOD COUNT 5.4 10^3/uL (4.0-10.5)
[2018-08-14 07:11] LABS: ALANINE AMINOTRANSFERASE 23 U/L (9-52); ALBUMIN 2.6 g/dL (3.5-5.0); ALKALINE PHOSPHATASE 51 U/L (38-126); ASPARTATE AMINO TRANSFERASE 19 U/L (14-36); BILIRUBIN,DIRECT 0.1 mg/dL (0.0-0.4); BILIRUBIN,TOTAL 0.4 mg/dL (0.2-1.3); BLOOD UREA NITROGEN 5 mg/dL (7-20); CALCIUM 8.9 mg/dL (8.4-10.2); CHOLESTEROL 93.74 mg/dL (0-200); GLUCOSE 87 mg/dL (75-110); POTASSIUM 3.7 mmol/L (3.6-5.0); TOTAL PROTEIN 5.2 g/dL (6.3-8.2); TRIGLYCERIDES 61 mg/dL (<150)
[2018-08-14 07:16] LABS: ANION GAP 6 (5-19); CARBON DIOXIDE 25 mmol/L (22-30); CHLORIDE 113 mmol/L (98-107); SODIUM 143.6 mmol/L (137-145)
[2018-08-14 07:22] LABS: DIRECT LDL 57 mg/dL (<100)
--- NOTE | 2018-08-14 09:37 | RADIOLOGY REPORT (SQ) ---
EXAM DESCRIPTION: MRI HEAD WITHOUT COMPLETED DATE/TIME: 08/14/2018 9:07 am REASON FOR STUDY: Recurrent TIA and h/o CVA with left hemiparesis I67.89 OTHER CEREBROVASCULAR DISE ASE COMPARISON: CT dated 08/13/2018. MR dated 08/22/2013. TECHNIQUE: Multiplanar imaging includes non-contrasted T1, T2, FLAIR, and diffusion with ADC map seq uences. Images stored on PACS. LIMITATIONS: None. FINDINGS: ANATOMY: No anomalies. Normal vascular flow voids. Pituitary fossa normal. CSF SPACES: Normal in size and contour. No hemorrhage. CEREBRUM: Sulci and gyri normal in size and contour. Normal white matter signal on FLAIR imaging. No evidence of hemorrhage, mass, or extraaxial fluid collection. POSTERIOR FOSSA: No signal alteration. No hemorrhage. No edema, masses or mass effect. Internal anand tory canals, cerebello-pontine angles, mastoids normal. DIFFUSION IMAGING: Negative for acute or sub-acute infarction. ORBITS: No masses. Globes normal. PARANASAL SINUSES: No fluid levels. Mucosa normal. OTHER: No other significant finding. IMPRESSION: NORMAL MRI OF THE BRAIN WITHOUT INTRAVENOUS GADOLINIUM CONTRAST. EVIDENCE OF ACUTE STROKE: NO. TECHNICAL DOCUMENTATION: JOB ID: [id number] [employer]- All Rights Reserved Reading location - IP/workstation name: [email or web address]
[2018-08-14] MEDS ORDERED: FLUTICASONE/UMECLIDIN/VILANTER 100-62.5-25 MCG/DOSE IH SCH (10:00)
[2018-08-14] MEDS ORDERED: LISINOPRIL 10 MG TABLET PO SCH (10:00)
[2018-08-14] MEDS ORDERED: MAGNESIUM OXIDE 400 MG TABLET PO SCH (10:00)
[2018-08-14] MEDS ORDERED: (PENDING PHARMACY ID) (Tiotropium Bromide [Spiriva Respimat] 2 PUFF) IH SCH (10:00)
[2018-08-14] MEDS ORDERED: DILTIAZEM HCL 120 MG CAP.SR.24H PO SCH (10:00)
--- NOTE | 2018-08-14 12:06 | RADIOLOGY REPORT (SQ) ---
EXAM DESCRIPTION: CAROTID DOPPLER COMPLETED DATE/TIME: 08/14/2018 10:03 am REASON FOR STUDY: Recurrent TIA with h/o old CVA left hemiparesis I67.89 OTHER CEREBROVASCULAR DI SEASE COMPARISON: 08/23/2013. TECHNIQUE: Grayscale ultrasound, Doppler velocity and spectra, and color Doppler images acquired of the extra-cranial carotid and vertebral arteries. Images stored on PACS. LIMITATIONS: None. FINDINGS: RIGHT CAROTID CCA Velocities: Within normal limits. ICA Velocities Peak systolic 0.98 m/s. End diastolic 0.51 m/s. Proximal ICA/CCA peak systolic ratio 1.34. Spectra normal. No significant plaque. LEFT CAROTID CCA Velocities: Within normal limits. ICA Velocities Peak systolic 1.79 m/s. End diastolic 0.68 m/s. Proximal ICA/CCA peak systolic ratio 2.93. Spectra normal. No significant plaque. VERTEBRAL ARTERIES: Antegrade flow. Normal waveforms. SUBCLAVIAN ARTERIES: No finding. OTHER: No other significant finding. IMPRESSION: ELEVATED VELOCITY IN THE DISTAL LEFT INTERNAL CAROTID ARTERY, CORRESPONDING TO 50- 69% S TENOSIS. HOWEVER, NO SIGNIFICANT PLAQUE VISUALIZED. NO HEMODYNAMICALLY SIGNIFICANT STENOSIS ON THE RIGHT. COMMENT: Quality ID #[id number]: Velocity criteria are extrapolated from the diameter data as defined by t he Society of Radiologists in Ultrasound Consensus Conference. Radiology 2003: 229; 340-346. TECHNICAL DOCUMENTATION: JOB ID: [id number] [email or web address]- All Rights Reserved Reading location - IP/workstation name: [email or web address]
[2018-08-14] MEDS: DRONABINOL 2.5 MG CAPSULE PO SCH ×2 (15:04→17:46)
[2018-08-14] MEDS: RIVAROXABAN 10 MG TABLET PO SCH (17:42)
[2018-08-14] MEDS ORDERED: ACETAMINOPHEN 325 MG TABLET PO PRN (18:03)
--- NOTE | 2018-08-14 18:03 | PDOC PROGRESS REPORT ---
Subjective Progress Note for:: 08/14/18 Subjective:: Complain about headache. No recurrent passing out, numbness or tingling. No dizziness, chest pain or difficulty with breathing. No nausea, vomiting or abdominal pain. No fever or chills. Reason For Visit: RECURRENT TIA WITH H/O OLD CVA AND LEFT Physical Exam Vital Signs: Temp Pulse Resp BP Pulse Ox 98.9 F 86 16 109/59 L 96 08/14/18 16:25 08/14/18 16:25 08/14/18 16:25 08/14/18 16:25 08/14/18 16:25 Intake & Output 08/13/18 08/14/18 08/15/18 06:59 06:59 06:59 Intake Total 740 Balance 740 Weight 51.7 kg General appearance: PRESENT: no acute distress, well-developed, well-nourished Head exam: PRESENT: atraumatic, normocephalic Eye exam: PRESENT: conjunctiva pink, EOMI, PERRLA. ABSENT: scleral icterus Ear exam: PRESENT: normal external ear exam Mouth exam: PRESENT: moist Respiratory exam: PRESENT: clear to auscultation darinel Cardiovascular exam: PRESENT: RRR. ABSENT: diastolic murmur, rubs, systolic murmur Vascular exam: ABSENT: pallor GI/Abdominal exam: PRESENT: normal bowel sounds, soft. ABSENT: distended, guarding, mass, organolmegaly, rebound, tenderness Extremities exam: ABSENT: pedal edema Neurological exam: PRESENT: alert, awake, oriented to person, oriented to place, oriented to time, oriented to situation, CN II-XII grossly intact. ABSENT: motor sensory deficit Psychiatric exam: PRESENT: appropriate affect, normal mood. ABSENT: homicidal ideation, suicidal ideation Skin exam: PRESENT: dry, warm Results Laboratory Results: 08/14/18 05:37 08/14/18 05:37 08/13/18 08/14/18 08/14/18 13:15 05:37 05:37 WBC 5.4 RBC 3.50 L Hgb 10.6 L Hct 32.0 L MCV 92 MCH 30.2 MCHC 32.9 RDW 15.6 H Plt Count 321 Seg Neutrophils % 30.6 L Lymphocytes % 51.8 H Monocytes % 9.5 Eosinophils % 6.6 H Basophils % 1.5 Absolute Neutrophils 1.6 L Absolute Lymphocytes 2.8 Absolute Monocytes 0.5 Absolute Eosinophils 0.4 Absolute Basophils 0.1 Sodium 143.6 Potassium 3.7 Chloride 113 H Carbon Dioxide 25 Anion Gap 6 BUN 5 L Creatinine 0.52 Est GFR ( Amer) > 60 Est GFR (Non-Af Amer) > 60 Glucose 87 Calcium 8.9 Magnesium 1.8 Total Bilirubin 0.4 AST 19 ALT 23 Alkaline Phosphatase 51 Total Protein 5.2 L Albumin 2.6 L Triglycerides 61 Cholesterol 93.74 LDL Cholesterol Direct 57 VLDL Cholesterol 12.0 HDL Cholesterol 32 L 08/13/18 08/13/18 13:15 13:15 Creatine Kinase 42 CK-MB (CK-2) < 0.22 Troponin I < 0.012 Impressions: Chest X-Ray 08/13/18 12:28 IMPRESSION: Chronic lung changes with no acute cardiopulmonary findings. Head CT 08/13/18 12:28 IMPRESSION: NORMAL BRAIN CT WITHOUT CONTRAST. EVIDENCE OF ACUTE STROKE: NO. Carotid Doppler Study 08/14/18 08:00 IMPRESSION: ELEVATED VELOCITY IN THE DISTAL LEFT INTERNAL CAROTID ARTERY, CORRESPONDING TO 50- 69% STENOSIS. HOWEVER, NO SIGNIFICANT PLAQUE VISUALIZED. NO HEMODYNAMICALLY SIGNIFICANT STENOSIS ON THE RIGHT. Head MRI 08/14/18 08:00 IMPRESSION: NORMAL MRI OF THE BRAIN WITHOUT INTRAVENOUS GADOLINIUM CONTRAST. EVIDENCE OF ACUTE STROKE: NO. Assessment & Plan - Diagnosis (1) TIA (transient ischemic attack) Is this a current diagnosis for this admission?: Yes Plan: Left internal carotid 50-69% stenosis is concerning in view of her recurrent TIA events. Maintain on Xarelto and refer to vascular surgeon for further evaluation upon discharge. Patient in agreement with care plan. (2) CVA, old, hemiparesis Is this a current diagnosis for this admission?: Yes (3) Essential hypertension Is this a current diagnosis for this admission?: Yes (4) HLD (hyperlipidemia) Qualifiers: Hyperlipidemia type: unspecified Qualified Code(s): E78.5 - Hyperlipidemia, unspecified Is this a current diagnosis for this admission?: Yes (5) COPD (chronic obstructive pulmonary disease) Qualifiers: COPD type: unspecified COPD Qualified Code(s): J44.9 - Chronic obstructive pulmonary disease, unspecified Is this a current diagnosis for this admission?: Yes (6) GERD (gastroesophageal reflux disease) Qualifiers: Esophagitis presence: without esophagitis Qualified Code(s): K21.9 - Gastro-esophageal reflux disease without esophagitis Is this a current diagnosis for this admission?: Yes (7) Status post bilateral mastectomy Is this a current diagnosis for this admission?: Yes - Time Time Spent with patient: 25-34 minutes Medications reviewed and adjusted accordingly: Yes Anticipated discharge: Home Within: within 24 hours - Inpatient Certification Post Hospital Care: D/C Column Precaster Documentation - Plan Summary Plan Summary: Maintain on all current medication management. Patient request for further evaluation due to Carotid Doppler test findings and her headache. she will receive Tylenol 975 mg po x 1 dose and prn q8 hours for headache. Possible discharge home in the morning.
[2018-08-14] MEDS: MONTELUKAST SODIUM 10 MG TABLET PO SCH (21:52)
[2018-08-15] MEDS: LANSOPRAZOLE 30 MG TAB.RAP.DR PO SCH (05:33)
--- NOTE | 2018-08-15 08:09 | PDOC DISCHARGE SUMMARY ---
General - Admit/Disc Date/PCP Admission Date/Primary Care Provider: 08/13/18 15:21 LUKASZ CECI Discharge Date: 08/15/18 - Discharge Diagnosis (1) TIA (transient ischemic attack) Is this a current diagnosis for this admission?: Yes (2) CVA, old, hemiparesis Is this a current diagnosis for this admission?: Yes (3) Essential hypertension Is this a current diagnosis for this admission?: Yes (4) HLD (hyperlipidemia) Is this a current diagnosis for this admission?: Yes (5) COPD (chronic obstructive pulmonary disease) Is this a current diagnosis for this admission?: Yes (6) GERD (gastroesophageal reflux disease) Is this a current diagnosis for this admission?: Yes (7) Status post bilateral mastectomy Is this a current diagnosis for this admission?: Yes - Additional Information Resuscitation Status: Full Code Home Medications: Albuterol Sulfate [Proair HFA Inhalation Aerosol 8.5 gm MDI] 2 puff IH Q4HP PRN 06/15/18 Diltiazem HCl [Cartia Xt] 120 mg PO DAILY 06/15/18 Ferrous Sulfate [Feosol 325 mg Tablet] 325 mg PO DAILY 06/15/18 Lansoprazole 30 mg PO Q6AM 06/15/18 Montelukast Sodium [Singulair 10 mg Tablet] 10 mg PO QPM 06/15/18 Rivaroxaban [Xarelto] 20 mg PO WSUPPER 06/15/18 Fluticasone/Umeclidin/Vilanter [Trelegy 100-62.5-25 Mcg Ellipta 14 Dose/Dpi] 1 inh IH DAILY #1 inhaler 06/21/18 Albuterol Sulfate [Ventolin 0.083% Neb 2.5 mg/3 ml Ampul] 1 vial NEB RTQ6HP PRN 08/13/18 Dronabinol [Marinol 2.5 mg Capsule] 5 mg PO BIDACBS 08/13/18 Magnesium Oxide [Mag-Ox 400 mg Tablet] 400 mg PO DAILY 08/13/18 History of Present Illness Patient complains of: left facial numbness and tingling History of Present Illness: ARIELLA JUAREZ is a 53 year old female patient known to my practice who presented to the ED via EMS service due to development of left sided weakness, numbness and tingling. Patient reported that she developed left facial numbness and tingling earlier this morning on her way to a dental appointment. She claimed associated palpitation but denied any definite chest pain. She reported occipital region headache and blurry vision earlier this morning. She reported that she feel asleep but not definite about loss of consciousness or seizure activities. EMS staff reported that dental office activated the system due to patient's development of difficulty with talking and she was found with left sided weakness upon their arrival. Her initial evaluation in the ED was unrevealing. Her symptoms resolved before her evaluation and imaging study were unrevealing for acute process. Her EKG did revealed borderline prolonged QT interval. Due to her morbidities including Congestive heart failure, Hyperlipidemia, COPD, old stroke with left hemiparesis, breast cancer with bilateral mastectomy, GERD and hiatus hernia she was advised hospitalization to observation bed for further evaluation and management. Hospital Course Hospital Course: She was managed with continuation of her Xarelto for anticoagulation therapy. Her brain MRI was reported normal for any acute process. Her carotid doppler revealed left distal carotid stenosis of 50-69% severity without plaque. She will be discharged home today with office follow up appointment as instructed upon discharge. Physical Exam Vital Signs: Temp Pulse Resp BP Pulse Ox 99.0 F 72 16 116/72 98 08/15/18 03:40 08/15/18 04:00 08/15/18 04:00 08/15/18 04:00 08/15/18 04:00 Intake & Output 08/14/18 08/15/18 08/16/18 06:59 06:59 06:59 Intake Total 740 177 Balance 740 177 Weight 51.7 kg 52.5 kg Physical Exam: General appearance: PRESENT: no acute distress, well-developed, well-nourished Head exam: PRESENT: atraumatic, normocephalic Eye exam: PRESENT: conjunctiva pink, EOMI, PERRLA. ABSENT: pallor, scleral icterus Ear exam: PRESENT: normal external ear exam Mouth exam: PRESENT: moist Respiratory exam: PRESENT: clear to auscultation darinel Cardiovascular exam: PRESENT: RRR. ABSENT: diastolic murmur, rubs, systolic murmur GI/Abdominal exam: PRESENT: normal bowel sounds, soft. ABSENT: distended, guarding, mass, organomegaly, rebound, tenderness Extremities exam: ABSENT: pedal edema Neurological exam: PRESENT: alert, awake, oriented to person, oriented to place, oriented to time, oriented to situation, CN II-XII grossly intact. ABSENT: motor sensory deficit Psychiatric exam: PRESENT: appropriate affect, normal mood. ABSENT: homicidal ideation, suicidal ideation Skin exam: PRESENT: dry, warm Results Laboratory Results: 08/14/18 05:37 08/14/18 05:37 08/13/18 08/13/18 13:15 13:15 Creatine Kinase 42 CK-MB (CK-2) < 0.22 Troponin I < 0.012 Impressions: Chest X-Ray 08/13/18 12:28 IMPRESSION: Chronic lung changes with no acute cardiopulmonary findings. Head CT 08/13/18 12:28 IMPRESSION: NORMAL BRAIN CT WITHOUT CONTRAST. EVIDENCE OF ACUTE STROKE: NO. Carotid Doppler Study 08/14/18 08:00 IMPRESSION: ELEVATED VELOCITY IN THE DISTAL LEFT INTERNAL CAROTID ARTERY, CORRESPONDING TO 50- 69% STENOSIS. HOWEVER, NO SIGNIFICANT PLAQUE VISUALIZED. NO HEMODYNAMICALLY SIGNIFICANT STENOSIS ON THE RIGHT. Head MRI 08/14/18 08:00 IMPRESSION: NORMAL MRI OF THE BRAIN WITHOUT INTRAVENOUS GADOLINIUM CONTRAST. EVIDENCE OF ACUTE STROKE: NO. Qualifiers - * PATIENT BEING DISCHARGED WITH ANY OF THE FOLLOWING DIAGNOSIS: No Plan Discharge Plan: D/C home today. Follow up in the office as instructed upon discharge.
[2018-08-15 08:24] VITALS: BP 109/68
[2018-08-15] MEDS ORDERED: FERROUS SULFATE 325 MG TABLET PO SCH (10:00)
== END 2018-08-15 08:43 | disposition home or self-care (01) ==
LOC: ER 12:27 → EH 15:21 → 3S 18:48
PROVIDERS: ADMIT Internal Medicine Geriatric Medicine; ATTEND Internal Medicine Geriatric Medicine
DX: G45.9 Transient cerebral ischemic attack, unspecified (principal); I69.354 Hemiplegia and hemiparesis following cerebral infarction affecting left non-dominant side; I11.0 Hypertensive heart disease with heart failure; I50.9 Heart failure, unspecified; E78.5 Hyperlipidemia, unspecified; J44.9 Chronic obstructive pulmonary disease, unspecified; K21.9 Gastro-esophageal reflux disease without esophagitis; R00.2 Palpitations; K44.9 Diaphragmatic hernia without obstruction or gangrene; Z90.13 Acquired absence of bilateral breasts and nipples; Z79.899 Other long term (current) drug therapy; Z79.02 Long term (current) use of antithrombotics/antiplatelets; Z85.3 Personal history of malignant neoplasm of breast; Z87.891 Personal history of nicotine dependence; Z82.49 Family history of ischemic heart disease and other diseases of the circulatory system
CPT/HCPCS: 93005; 99291; 36415 ×2; 82553; 82550; 83735; 85025 ×2; 85610; 85730; 80053 ×2; 84484; 80061; 93880; 70551; 71045; 70450; 93010; G0378 ×4; A9270 ×7; J3490

== ENCOUNTER 2018-08-15 08:54 | Day surgery (SDC) | payer MEDICARE, MEDICAID ==
[2018-08-15] MEDS ORDERED: FENTANYL CITRATE INJ/PF 100 MCG/2 ML AMPUL ONE ×2 (11:16→14:51)
[2018-08-15] MEDS ORDERED: LIDOCAINE 1% INJ-PF (10 MG/ML) 30 ML SDV ONE ×2 (11:16→14:52)
[2018-08-15] MEDS ORDERED: MIDAZOLAM 2 MG/2 ML INJ ONE (11:16)
--- NOTE | 2018-08-15 12:44 | RADIOLOGY REPORT (SQ) ---
EXAM DESCRIPTION: CT BIOPSY LUNG/MEDIASTINUM; CT NEEDLE PLACEMENT COMPLETED DATE/TIME: 08/15/2018 12:20 pm; 08/15/2018 12:19 pm REASON FOR STUDY: SOLITARY PULMONARY NODULE; SOLITARY PULMONARY NODULE, LUNG BIOPSY R91.1 SOLITARY PULMONARY NODULE Z85.3 PERSONAL HISTORY OF MALIGNANT NEOPLASM OF BREAST COMPARISON: None. FLUORO TIME: 0.2 Minutes of fluoroscopy was used. 18 CT fluoroscopic images were obtained and saved to PACS. LIMITATIONS: None. PROCEDURE: After obtaining informed consent and explaining the risks and benefits of conscious sedat ion,the patient agreed to the procedure. The patient was brought to the CT suite and was placed prone on the CT gurney. The patient was prepped and draped in the usual sterile fashion . Axial images we re obtained for targeting of theright upper lobe. An appropriate access site was selected. IV conscio us sedation was administered and physician direction by the registered nurse using 0.5 milligrams of Versed and 50 micrograms of fentanyl. Physiologic monitoring was provided before, during, and after s edation. The total sedation time was 30 minutes. Documentation face to face time, the performing proceduralist, spent monitoring the patient: [address] scanners at this facility use dose modulation, iterative reconstruction, and/or weight based d osing when appropriate to reduce radiation dose to as low as reasonably achievable (ALARA). [facility]: Dose Right [facility]: CareDose [facility]: Dose Right [facility]: Teradose 4D [facility]: [employer] After sterile skin prep and local lidocaine for skin and deep tissue anesthesia, a coaxial biopsy nee dle was used to obtain multiple cores of tissue. The biopsy tissue was submitted to the lab. There we re no immediate complications. Pathology is pending at the time of dictation. IMPRESSION: SUCCESSFUL CT GUIDED PERCUTANEOUS LUNG BIOPSY OF THE RIGHT UPPER LOBE. COMMENT: Patient medication list reviewed: Yes- Quality ID# [id number]:Eligible professional attests to doc umenting in the medical record they obtained, updated, or reviewed the patient's current medications. Quality ID 145: Final reports for procedures using fluoroscopy that document radiation exposure soraya hakeem, or exposure time and number of fluorographic images (if radiation exposure indices are not avail able) Quality ID # 436: Final reports with documentation of one or more dose reduction techniques (e.g., Au tomated exposure control, adjustment of the mA and/or kV according to patient size, use of iterative reconstruction technique) TECHNICAL DOCUMENTATION: JOB ID: [id number] [employer]- All Rights Reserved Reading location - IP/workstation name: [email or web address]
--- NOTE | 2018-08-15 12:57 | RADIOLOGY REPORT (SQ) ---
EXAM DESCRIPTION: CHEST SINGLE VIEW COMPLETED DATE/TIME: 08/15/2018 12:43 pm REASON FOR STUDY: POST LUNG BIOPSY COMPARISON: 08/13/2018 NUMBER OF VIEWS: One view. TECHNIQUE: Single frontal radiographic image of the chest acquired. LIMITATIONS: None. FINDINGS: LUNGS AND PLEURA: Approximately 10% right apical pneumothorax. Post biopsy changes right upper lobe. MEDIASTINUM AND HEART: Stable heart size and mediastinal structures. BONY STRUCTURES: No acute findings. HARDWARE: None. OTHER: No other significant finding. IMPRESSION: Small right apical pneumothorax status post CT-guided lung biopsy. TECHNICAL DOCUMENTATION: JOB ID: [id number] Reading location - IP/workstation name: [email or web address]
--- NOTE | 2018-08-15 14:21 | RADIOLOGY REPORT (SQ) ---
EXAM DESCRIPTION: CHEST SINGLE VIEW COMPLETED DATE/TIME: 08/15/2018 1:51 pm REASON FOR STUDY: Post lung biopsy COMPARISON: Earlier same day. NUMBER OF VIEWS: One view. TECHNIQUE: Single frontal radiographic image of the chest acquired. LIMITATIONS: None. FINDINGS: LUNGS AND PLEURA: Right apical pneumothorax slightly increased, estimated 15%. MEDIASTINUM AND HEART: Stable. No mediastinal shift. BONY STRUCTURES: No acute findings. HARDWARE: None. OTHER: No other significant finding. IMPRESSION: Increasing size of right apical pneumothorax. TECHNICAL DOCUMENTATION: JOB ID: [id number] Reading location - IP/workstation name: [email or web address]-
[2018-08-15] MEDS ORDERED: OXYCODONE-ACETAMINOPHEN 5-325 MG TABLET ONE (15:57)
--- NOTE | 2018-08-15 16:01 | RADIOLOGY REPORT (SQ) ---
EXAM DESCRIPTION: CHEST SINGLE VIEW COMPLETED DATE/TIME: 08/15/2018 3:49 pm REASON FOR STUDY: POST CHEST TUBE PLACEMENT COMPARISON: Earlier same day. NUMBER OF VIEWS: One view. TECHNIQUE: Single frontal radiographic image of the chest acquired. LIMITATIONS: None. FINDINGS: Interval chest tube placement tip over right hilum. Re-expansion of the right lung. Less than 10% residual apical pneumothorax. IMPRESSION: Successful right chest tube placement. Reading location - IP/workstation name: [email or web address]
--- NOTE | 2018-08-15 16:05 | RADIOLOGY REPORT (SQ) ---
EXAM DESCRIPTION: CT THORACENTESIS W/CHEST TUBE COMPLETED DATE/TIME: 08/15/2018 3:42 pm REASON FOR STUDY: PNEUMOTHORAX R91.1 SOLITARY PULMONARY NODULE Z85.3 PERSONAL HISTORY OF MALIGNANT NEOPLASM OF BREAST COMPARISON: None. DRAWER WAXER: Nyasia SUPERVISING PHYSICIAN: Esvin FLUOROSCOPY TIME: CT Fluoroscopy: 22 seconds 81CT fluoroscopic images were obtained and saved to PACS. RADIATION DOSE: CT Rad equipment meets quality standard of care and radiation dose reduction techniq ues were employed. CTDIvol: 4.0 - 7.1 mGy. DLP: 296 mGy-cm. mGy. LIMITATIONS: None. PROCEDURE: Procedure, risks, benefit, and alternative explained to patient who then gave written con sent. The anterior right chest wall was marked using CT guidance; "time-out" called; correct marking verified. Chest prepped and draped using sterile technique. Local anesthesia achieved using 1% li docaine injection. Coaxial needle introduced into the right pleural space. Air aspirated. Needle e xchanged for a guidewire. 8 [place] [employer] APD catheter placed and secured to Heimlich valve. Images acquired during the procedure were stored on PACS. All CT scanners at this facility use dose modulation, iterative reconstruction, and/or weight based d osing when appropriate to reduce radiation dose to as low as reasonably achievable (ALARA). [facility]: Dose Right [facility]: CareDose [facility]: Dose Right [facility]: Teradose 4D [facility]: [employer] FINDINGS: None. IMPRESSION: Successful right chest tube placement. COMMENT: At my direction, under continuous physiologic monitoring of the patient by the radiology n zohreh before, during and after the procedure, a total of 0Milligrams of IV Versed and 100micrograms of IV fentanyl were given in divided doses for conscious s edation. No immediate complications. Documentation face to face time, the performing proceduralist, spent monitoring the patient: 10minute s. Patient medication list reviewed: Yes- PQRS [id number]:Eligible professional attests to documenting in the medical record they obtained, updated, or reviewed the patient's current medications. Quality ID 145: Final reports for procedures using fluoroscopy that document radiation exposure soraya hakeem, or exposure time and number of fluorographic images (if radiation exposure indices are not avail able) TECHNICAL DOCUMENTATION: JOB ID: [id number] Quality ID # [id number]: Final reports with documentation of one or more dose reduction techniques (e.g., Au tomated exposure control, adjustment of the mA and/or kV according to patient size, use of iterative reconstruction technique) 2010 [employer]- All Rights Reserved Reading location - IP/workstation name: [facility]
[2018-08-15 17:18] VITALS: BP 111/71
== END 2018-08-15 17:10 | disposition home or self-care (01) ==
LOC: RAD 08:54
PROVIDERS: ATTEND Internal Medicine Medical Oncology
DX: R91.1 Solitary pulmonary nodule (principal); Z85.3 Personal history of malignant neoplasm of breast; J44.9 Chronic obstructive pulmonary disease, unspecified; M79.7 Fibromyalgia; Z79.01 Long term (current) use of anticoagulants
CPT/HCPCS: 88305 ×2; 71045; 32551; 77012; 32405; C1729; C1894; J2250; J3010; J3490; A9270

== ENCOUNTER 2018-08-15 21:03 | Emergency (ER) | payer MEDICARE, MEDICAID ==
--- NOTE | 2018-08-15 21:34 | ER Document Report ---
ED Cardiac - General Chief Complaint: Chest Pain Stated Complaint: CHEST WALL PAIN Time Seen by Provider: 08/15/18 21:34 Primary Care Provider: LUKASZ ORNELAS MD [Primary Care Provider] - Follow up as needed Mode of Arrival: Ambulatory Information source: Patient Notes: HISTORY OF PRESENT ILLNESS: Patient is a 53-year-old female with a past medical history of multiple health conditions including COPD on home oxygen as well as a right pulmonary nodule status post biopsy earlier today who presents with right-sided chest pain or shortness of breath. Of note, following the biopsy the patient had a partial collapse of the right lung, therefore she had a pigtail chest tube catheter placed. Location: Right-sided Onset: Sudden Alleviation: Certain positions Provocation: Breathing in and out Quality: Tightness, sharp Radiation: None Severity: Moderate Timing: Constant History of CAD: Yes Associated symptoms: Denies fevers or chills REVIEW OF SYSTEMS: CONSTITUTIONAL : Denies fever or chills, no sweats. Denies recent illness. EENT: Denies eye, ear, throat, or mouth pain or symptoms. Denies nasal or sinus congestion. CARDIOVASCULAR: Positive for chest pain. Denies swelling of the legs. RESPIRATORY: Denies cough, cold, or chest congestion. Positive for shortness of breath. Denies wheezing. GASTROINTESTINAL: Denies abdominal pain. Denies nausea, vomiting, or diarrhea. Denies constipation. GENITOURINARY: Denies difficulty urinating, painful urination, burning, frequency, or blood in urine. FEMALE GENITOURINARY: Denies vaginal bleeding, abnormal or irregular periods. MUSCULOSKELETAL: Denies neck or back pain or joint pain or swelling. SKIN: Denies rash or skin lesions. HEMATOLOGIC : Denies easy bruising or bleeding. LYMPHATIC: Denies swollen, enlarged glands. NEUROLOGICAL: Denies altered mental status or loss of consciousness. Denies headache. Denies weakness or paralysis or loss of use of either side. Denies problems with gait or speech. Denies sensory or motor loss. PSYCHIATRIC: Denies anxiety or stress or depression. All other systems reviewed and negative. PHYSICAL EXAMINATION: GENERAL: Frail-appearing, well-nourished and in no acute distress. HEAD: Atraumatic, normocephalic. No scalp deformity, depression, or crepitance. EYES: Pupils are 2mm and equal/round/reactive to light, extraocular movements intact, sclera anicteric, conjunctiva are normal. ENT: Nares patent bilaterally, oropharynx. Moist mucous membranes. No tonsil hypertrophy. NECK: Normal range of motion, supple without lymphadenopathy. LUNGS: Breath sounds slightly diminished but present bilaterally, there is a right-sided chest tube. No wheezes, rales, or rhonchi. HEART: Regular rate and rhythm without murmurs, rubs, or gallops. 2+ peripheral pulses. Normal capillary refill. ABDOMEN: Soft, nontender, nondistended. Normoactive bowel sounds. No guarding, no rebound. No masses appreciated. BACK: Normal contour, no midline tenderness. Rectal exam deferred. GENITAL/PELVIC: Deferred. EXTREMITIES: Normal range of motion, no pitting or edema. No cyanosis. NEUROLOGICAL: No focal neurological deficits. Moves all extremities spontaneously and on command. PSYCH: Normal mood, normal affect. No suicidal thoughts/ideations. No homocidal thoughts/ideations. No hallucinations. SKIN: Warm, dry, normal turgor, no rashes or lesions noted. ASSESSMENT AND PLAN: This patient is a 53-year-old female who presents with right-sided chest pain that began after biopsy of a pulmonary nodule status post pigtail chest tube catheter placement secondary to partial pneumothorax. 1. Will obtain labs, cardiac enzymes, and CT scan of the chest. 2. Will give the patient IV pain medications and reassess. TRAVEL OUTSIDE OF THE [place] IN LAST 30 DAYS: No - Related Data Allergies/Adverse Reactions: prednisone [Prednisone] Adverse Reaction (Intermediate, Verified 08/13/18 13:01) Past Medical History - General Information source: Patient - Social History Smoking Status: Former Smoker Chew tobacco use (# tins/day): No Frequency of alcohol use: None Drug Abuse: None Lives with: Family Family History: Hypertension Patient has suicidal ideation: No Patient has homicidal ideation: No - Past Medical History Cardiac Medical History: Reports: Hx Congestive Heart Failure, Hx Hypercholesterolemia Denies: Hx Coronary Artery Disease, Hx Heart Attack, Hx Hypertension Pulmonary Medical History: Reports: Hx Asthma, Hx Bronchitis, Hx COPD, Hx Pneumonia Denies: Hx Respiratory Failure, Hx Sleep Apnea, Hx Tuberculosis EENT Medical History: Reports: None Neurological Medical History: Reports: Hx Cerebrovascular Accident - WEAKNESS ON LEFT SIDE. Denies: Hx Seizures Endocrine Medical History: Reports: None Renal/ Medical History: Reports: Hx Ovarian Cysts. Denies: Hx Peritoneal Dialysis Malignancy Medical History: Reports: Hx Breast Cancer GI Medical History: Reports: Hx Gastroesophageal Reflux Disease, Hx Hiatal Hernia Musculoskeletal Medical History: Denies Hx Arthritis, Denies Hx Multiple Sclerosis Skin Medical History: Reports None Psychiatric Medical History: Reports: None Denies: Hx Dementia, Hx Depression Traumatic Medical History: Reports: None Infectious Medical History: Reports: None Past Surgical History: Reports: Hx Mastectomy - bilat 2010, Hx Orthopedic Surgery - left shoulder replacement 09/10. Denies: Hx Hysterectomy, Hx Pacemaker - Immunizations Immunizations up to date: Yes Hx Diphtheria, Pertussis, Tetanus Vaccination: No History of Influenza Vaccine for 03/2017 - 08/2017 Season: Unknown Hx Pneumococcal Vaccination: 06/26/11 Physical Exam - Vital signs Vitals: Temp Pulse Resp BP Pulse Ox 98.1 F 92 24 H 111/74 100 08/15/18 21:03 08/15/18 21:03 08/15/18 21:03 08/15/18 21:03 08/15/18 21:03 Course - Re-evaluation Re-evalutation: 08/16/18 04:09 Blood work shows negative cardiac enzymes. CT scan of the chest shows small residual apical right pneumothorax but overall much improved from earlier x-rays both in the emergency department and vast improvement after the procedure. Patient has been able to ambulate with 2 L of oxygen, which is her home requirement, without episodes of oxygen desaturation. She will be discharged with return precautions and follow-up this morning to have the chest tube reevaluated and possibly removed. Patient voices both understanding and agreeing with the plan. - Vital Signs Vital signs: Temp Pulse Resp BP Pulse Ox 98.1 F 92 14 112/70 100 08/15/18 21:03 08/15/18 21:03 08/16/18 04:01 08/16/18 04:01 08/16/18 04:01 - Laboratory Result Diagrams: 08/15/18 22:41 08/15/18 22:41 Laboratory results interpreted by me: 08/15/18 08/15/18 22:41 22:41 Hgb 11.6 L Hct 35.7 L RDW 15.5 H Potassium 3.4 L AST 51 H - Diagnostic Test Radiology reviewed: Image reviewed, Reports reviewed - EKG Interpretation by Me EKG shows normal: Sinus rhythm Rate: Normal Rhythm: No: NSR, SVT, Arrthymia, A.Fib, A.Flutter, with a 2:1 Block, V.Tach, Torsades, V. Fib, MAT, PVC's, APC's, Other [place]/QRS: No: Right axis deviation, Left axis deviation, RBBB, LBBB, IVCD, LAHB/LAFB, LPHB/LPFB, Bifasicular block Voltage: No: Increased voltage, Consistant with LVH, Decreased voltage, Throughout, Limb leads P Waves: No: ALAN, LAE, Absent, AV Dissociation, Other Heart block present: No: 1st Degree, Mobitz 1, Mobitz 2, CHB (3rd degree block) When compared to previous EKG there are: Previous EKG unavailable Discharge - Discharge Clinical Impression: Chest pain Qualifiers: Chest pain type: chest pain on breathing Qualified Code(s): R07.1 - Chest pain on breathing; R07.81 - Pleurodynia Condition: Good Disposition: HOME, SELF-CARE Instructions: Chest Wall Pain ([facility]) Additional Instructions: You have been evaluated in the Emergency Department for chest pain trouble breathing related to your chest tube. While here, you had both blood work and a CT scan of your chest that did not show concerning findings and it is now safe to be discharged home. Please follow-up with your physicians today to have the chest tube reevaluated and then your primary physician as instructed in 24-48 hours. Return to the Emergency Department if you experience worsening pain, wor sening breathing, weakness, high fevers, or any other concerning symptoms. Referrals: LUKASZ ORNELAS MD [Primary Care Provider] - Follow up as needed Print Language: Wolof
--- NOTE | 2018-08-15 22:26 | RADIOLOGY REPORT (SQ) ---
EXAM DESCRIPTION: XR CHEST 1 VIEW COMPLETED DATE/TME: 08/15/2018 21:05 CLINICAL HISTORY: 53 years, Female, cp, chest tube placement. Compared to chest radiograph earlier on the same day at 08/15/2018 at Findings: Right chest tube is in place. Small right apical pneumothorax. No pleural effusions. Lungs are clear. IMPRESSION: Right chest tube is in place with small residual right apical pneumothorax. Appearance of pneumothorax is similar to the prior study.
[2018-08-15] MEDS ORDERED: MORPHINE SULFATE 10 MG/ML INJ IV ONE (22:51)
[2018-08-15 22:52] LABS: ABSOLUTE BASOPHILS # (AUTO) 0.1 10^3/uL (0.0-0.2); ABSOLUTE LYMPHOCYTES (AUTO) 1.2 10^3/uL (0.5-4.7); ABSOLUTE MONOCYTES (AUTO) 0.5 10^3/uL (0.1-1.4); ABSOLUTE NEUT (AUTO) 5.6 10^3/uL (1.7-8.2); BASOPHILS % (AUTO) 0.8 % (0-2); EOSINOPHILS % (AUTO) 0.4 % (0-6); HEMATOCRIT 35.7 % (36.0-47.0); HEMOGLOBIN 11.6 g/dL (12.0-15.5); LYMPHOCYTES % (AUTO) 16.1 % (13-45); MEAN CORPUSCULAR HEMOGLOBIN 30.1 pg (27.0-33.4); MEAN CORPUSCULAR HGB CONC 32.5 g/dL (32.0-36.0); MEAN CORPUSCULAR VOLUME 93 fl (80-97); MONOCYTES % (AUTO) 6.6 % (3-13); PLATELET COUNT 379 10^3/uL (150-450); RED BLOOD COUNT 3.86 10^6/uL (3.72-5.28); RED CELL DISTRIBUTION WIDTH 15.5 % (11.5-14.0); SEGMENTED NEUTROPHILS % (AUTO) 76.1 % (42-78); TOTAL CELLS COUNTED % (AUTO) 100 %; WHITE BLOOD COUNT 7.3 10^3/uL (4.0-10.5)
[2018-08-15 23:03] LABS: INTERNATIONAL RATION (INR) 0.95; PARTIAL THROMBOPLASTIN TIME 28.4 SEC (23.5-35.8); PROTHROMBIN TIME 13.2 SEC (11.4-15.4)
[2018-08-15 23:21] LABS: ALANINE AMINOTRANSFERASE 15 U/L (9-52); ALBUMIN 3.5 g/dL (3.5-5.0); ALKALINE PHOSPHATASE 59 U/L (38-126); ANION GAP 8 (5-19); ASPARTATE AMINO TRANSFERASE 51 U/L (14-36); BILIRUBIN,DIRECT 0.2 mg/dL (0.0-0.4); BILIRUBIN,TOTAL 0.6 mg/dL (0.2-1.3); BLOOD UREA NITROGEN 7 mg/dL (7-20); CALCIUM 9.4 mg/dL (8.4-10.2); CARBON DIOXIDE 28 mmol/L (22-30); CHLORIDE 107 mmol/L (98-107); CREATINE KINASE 35 U/L (30-135); GLUCOSE 90 mg/dL (75-110); POTASSIUM 3.4 mmol/L (3.6-5.0); SODIUM 143.4 mmol/L (137-145); TOTAL PROTEIN 6.7 g/dL (6.3-8.2)
[2018-08-15 23:36] LABS: CREATINE KINASE MB < 0.22 ng/mL (<4.55); TROPONIN I < 0.012 ng/mL
--- NOTE | 2018-08-16 00:46 | RADIOLOGY REPORT (SQ) ---
EXAM DESCRIPTION: CT CHEST WITH IV CONTRAST COMPLETED DATE/TME: 08/15/2018 22:50 CLINICAL HISTORY: 53 years, Female, Chest pain after procedure COMPARISON: Chest x-ray 08/15/2018. CT chest 07/31/2018. TECHNIQUE: 285 Images stored on PACS. All CT scanners at this facility use dose modulation, iterative reconstruction, and/or weight based dosing when appropriate to reduce radiation dose to as low as reasonably achievable (ALARA). [facility]: Dose Right [facility]: CareDose [facility]: Dose Right [facility]: Teradose 4D [facility]: [employer] LIMITATIONS: None. FINDINGS: The visualized thyroid gland enhances normally. Artifact from the patient's left humeral prosthesis. The mediastinal vasculature enhances normally. No mediastinal or hilar adenopathy. The heart and pericardium are unremarkable. Limited evaluation of the upper abdomen is unremarkable. Osseous structures of the thorax are grossly intact. Small right apical pneumothorax persists. Allowing for differences in technique this is grossly similar to the most recent chest x-ray. Maximal pleural separation is some 1.4 cm. Underlying emphysematous changes are noted. Pleural-based catheter projects anteriorly in the anterior right pleural space. Reticulonodular changes of the right upper lobe. Scarring in the lung bases bilaterally. A somewhat spiculated nodular density in the posterior right upper lobe measuring 1.5 cm. Correlate with biopsy results. IMPRESSION: Little change in the overall size/appearance of the right apical pneumothorax compared with the most recent chest x-ray. Pleural-based catheter is in place. Underlying emphysema. Spiculated nodule right upper lobe. Correlate with biopsy results. Reticulonodular changes are also noted. These could reflect residual hemorrhage/pneumonitis relating to biopsy. TECHNICAL DOCUMENTATION: Quality ID # [id number]: Final reports with documentation of one or more dose reduction techniques (e.g., Automated exposure control, adjustment of the mA and/or kV according to patient size, use of iterative reconstruction technique) copyright 2011 [employer]- All Rights Reserved
[2018-08-16 07:17] VITALS: BP 131/77
--- NOTE | 2018-08-16 07:46 | EKG REPORT ---
SEVERITY:- ABNORMAL ECG - SINUS RHYTHM NONSPECIFIC T ABNORMALITIES, ANT-LAT LEADS : Confirmed by: Harvinder Allison MD 16-Aug-2018 07:45:53
== END 2018-08-16 08:26 | disposition home or self-care (01) ==
LOC: ER 21:03
DX: J93.9 Pneumothorax, unspecified (principal); J98.19 Other pulmonary collapse; R07.1 Chest pain on breathing; J44.9 Chronic obstructive pulmonary disease, unspecified; Z99.81 Dependence on supplemental oxygen; R91.1 Solitary pulmonary nodule; Z98.890 Other specified postprocedural states; Z87.891 Personal history of nicotine dependence; Z85.3 Personal history of malignant neoplasm of breast
CPT/HCPCS: 93005; 99284; 36415; 82553; 82550; 85025; 85610; 85730; 80053; 84484; 71045; 71260; 93010; J2270

== ENCOUNTER → 2018-08-16 | Outpatient (CLI) | payer MEDICARE, MEDICAID ==
--- NOTE | 2018-08-16 09:30 | RADIOLOGY REPORT (SQ) ---
EXAM DESCRIPTION: CHEST 2 VIEWS COMPLETED DATE/TIME: 08/16/2018 9:04 am REASON FOR STUDY: PNEUMOTHORAX (J93.9) COMPARISON: Chest films 08/15/2018, 08/16/2018 CT-guided lung biopsy 08/15/2018 CT chest 08/16/2018 EXAM PARAMETERS: NUMBER OF VIEWS: two views TECHNIQUE: Digital Frontal and Lateral radiographic views of the chest acquired. RADIATION DOSE: NA LIMITATIONS: none FINDINGS: LUNGS AND PLEURA: Right-sided pleural space pigtail catheter is present, with trace right apical pneumothorax marked with an arrow. Previously biopsied posterior right upper lobe nodule is d ifficult to identify by plain film. Chronic scarring/blunting of the left lateral costophrenic sulcus, left hemithorax. No acute left in filtrates. No left pneumothorax. No right or left pleural effusion MEDIASTINUM AND HILAR STRUCTURES: No masses or contour abnormalities. HEART AND VASCULAR STRUCTURES: Heart normal size. No evidence for failure. BONES: Left humeral head replacement HARDWARE: Clips post left mastectomy OTHER: No other significant finding. IMPRESSION: Right-sided pleural space pigtail catheter present. Trace right apical pneumothorax. TECHNICAL DOCUMENTATION: JOB ID: [id number] [employer]- All Rights Reserved Reading location - IP/workstation name: [email or web address]
== END ==
LOC: RAD 08:32
PROVIDERS: ATTEND Nuclear Medicine
DX: J93.9 Pneumothorax, unspecified (principal)
CPT/HCPCS: 71046

== ENCOUNTER 2018-08-17 12:27 | Inpatient (IN) | payer MEDICARE, MEDICAID ==
--- NOTE | 2018-08-17 12:54 | ER Document Report ---
ED General - General Chief Complaint: Shortness Of Breath Stated Complaint: SHORTNESS OF BREATH Time Seen by Provider: 08/17/18 12:40 Mode of Arrival: Wheelchair Information source: Patient, Emergency Med Personnel, [facility] Records Notes: 53-year-old female with COPD, congestive heart failure, hyperlipidemia, previous history of CVA, recently found pulmonary nodule in the right lung which she un derwent a lung biopsy for on 08/15/2018. At that time patient experienced a pneumothorax and a pigtail catheter was placed. She was discharged home but was reevaluated today by Dr. Julio who saw a recurrent pneumothorax. Tube was repositioned but again there was a reaccumulation of the thorax. Chest tube was then placed. TRAVEL OUTSIDE OF THE [place] IN LAST 30 DAYS: No - HPI Onset: Other Onset/Duration: Gradual, Persistent Quality of pain: Throbbing Severity: Moderate Associated symptoms: Chest pain, Shortness of breath. denies: Nausea, Vomiting Exacerbated by: Movement Relieved by: Denies Similar symptoms previously: Yes Recently seen / treated by doctor: Yes - Related Data Allergies/Adverse Reactions: prednisone [Prednisone] Adverse Reaction (Intermediate, Verified 08/17/18 13:57) Past Medical History - General Information source: Patient, Relative, [facility] Records - Social History Smoking Status: Former Smoker Frequency of alcohol use: None Drug Abuse: None Lives with: Family Family History: Hypertension Patient has suicidal ideation: No Patient has homicidal ideation: No - Past Medical History Cardiac Medical History: Reports: Hx Congestive Heart Failure, Hx Hypercholeste rolemia Denies: Hx Coronary Artery Disease, Hx Heart Attack, Hx Hypertension Pulmonary Medical History: Reports: Hx Asthma, Hx Bronchitis, Hx COPD, Hx Pneumonia Denies: Hx Respiratory Failure, Hx Sleep Apnea, Hx Tuberculosis Neurological Medical History: Reports: Hx Cerebrovascular Accident - WEAKNESS ON LEFT SIDE. Denies: Hx Seizures Endocrine Medical History: Renal/ Medical History: Reports: Hx Ovarian Cysts. Denies: Hx Peritoneal Dialysis Malignancy Medical History: Reports: Hx Breast Cancer GI Medical History: Reports: Hx Gastroesophageal Reflux Disease, Hx Hiatal Hernia Musculoskeletal Medical History: Denies Hx Arthritis, Denies Hx Multiple Sclerosis Psychiatric Medical History: Denies: Hx Dementia, Hx Depression Infectious Medical History: Past Surgical History: Reports: Hx Mastectomy - bilat 2010, Hx Orthopedic Surgery - left shoulder replacement 09/10. Denies: Hx Hysterectomy, Hx Pacemaker - Immunizations Immunizations up to date: Yes Hx Diphtheria, Pertussis, Tetanus Vaccination: No Hx Pneumococcal Vaccination: 06/26/11 Review of Systems - Review of Systems Constitutional: Malaise, Weakness, Recent illness EENT: denies: Blurred vision Cardiovascular: Chest pain - At site of chest tube, Palpitations Respiratory: Short of breath Gastrointestinal: denies: Abdominal pain, Nausea, Vomiting Genitourinary: denies: Dysuria, Flank pain Female Genitourinary: No symptoms reported Musculoskeletal: Back pain Skin: denies: Rash Hematologic/Lymphatic: Anemia Neurological/Psychological: denies: Headaches -: Yes All other systems reviewed and negative Physical Exam - Vital signs Vitals: Temp Resp BP Pulse Ox 98.8 F 23 H 146/101 H 79 L 08/17/18 12:33 08/17/18 12:33 08/17/18 12:33 08/17/18 12:33 Interpretation: Tachycardic, Hypoxic, Tachypneic - Notes Notes: PHYSICAL EXAMINATION: GENERAL: Frail, cachectic. HEAD: Atraumatic, normocephalic. EYES: Pupils equal round and reactive to light, extraocular movements intact, conjunctiva are normal. ENT: Nares patent, oropharynx clear without exudates. Moist mucous membranes. NECK: Normal range of motion, supple without lymphadenopathy LUNGS: Breath sounds clear to auscultation bilaterally and equal. No wheezes rales or rhonchi. Right-sided chest tube in place. On nasal cannula HEART: Regular rate and rhythm without murmurs ABDOMEN: Soft, nontender, nondistended abdomen. No guarding, no rebound. No masses appreciated. Female : deferred Musculoskeletal: Normal range of motion, no pitting or edema. No cyanosis. NEUROLOGICAL: Cranial nerves grossly intact. Normal speech, normal gait. Normal sensory, motor exams PSYCH: Normal mood, normal affect. SKIN: Warm, Dry, normal turgor, no rashes or lesions noted. Course - Re-evaluation Re-evalutation: Temp Pulse Resp BP Pulse Ox 99.7 F 96 18 112/79 100 08/17/18 16:22 08/17/18 16:22 08/17/18 16:22 08/17/18 16:22 08/17/18 16:22 08/17/18 17:45 53-year-old female presented for repeat chest x-ray after a pigtail catheter was placed due to a pneumothorax that the patient acquired after a lung biopsy. Pigtail was readjusted and monitored in radiology by Dr. Julio to assess for reaccumulation which did occur. Chest tube was placed and patient was put on Pleur-evac. Dr. Julio stated that Dr. Hernandez would admit the patient but after evaluating the patient he feels that she needs medical consultation due to her multiple medical problems. I did speak to Dr. Varela on-call for Dr. Steen who agrees to follow the patient. CBC, BMP, VBG are unremarkable. Dr. Julio recommends repeat chest x-ray tomorrow morning which that order was placed. Patient will be admitted to the [facility]. Dr. Hernandez will consult for chest tube management. 08/17/18 18:24 - Vital Signs Vital signs: Temp Pulse Resp BP Pulse Ox 99.7 F 96 18 112/79 100 08/17/18 16:22 08/17/18 16:22 08/17/18 16:22 08/17/18 16:22 08/17/18 16:22 - Laboratory Result Diagrams: 08/17/18 14:45 08/17/18 14:45 - Diagnostic Test Radiology reviewed: Image reviewed, Reports reviewed Discharge - Discharge Clinical Impression: Pneumothorax after biopsy Hypertension Qualifiers: Hypertension type: unspecified Qualified Code(s): I10 - Essential (primary) hypertension COPD (chronic obstructive pulmonary disease) Qualifiers: COPD type: unspecified COPD Qualified Code(s): J44.9 - Chronic obstructive pulmonary disease, unspecified Condition: Fair Disposition: ADMITTED INPATIENT Admitting Provider: Nichole Unit Admitted: [facility]
[2018-08-17 15:02] LABS: ABSOLUTE BASOPHILS # (AUTO) 0.1 10^3/uL (0.0-0.2); ABSOLUTE EOSINOPHILS # (AUTO) 0.2 10^3/uL (0.0-0.6); ABSOLUTE LYMPHOCYTES (AUTO) 2.6 10^3/uL (0.5-4.7); ABSOLUTE MONOCYTES (AUTO) 0.6 10^3/uL (0.1-1.4); ABSOLUTE NEUT (AUTO) 2.8 10^3/uL (1.7-8.2); BASOPHILS % (AUTO) 1.2 % (0-2); EOSINOPHILS % (AUTO) 3.1 % (0-6); HEMATOCRIT 33.5 % (36.0-47.0); HEMOGLOBIN 11.1 g/dL (12.0-15.5); LYMPHOCYTES % (AUTO) 41.2 % (13-45); MEAN CORPUSCULAR HEMOGLOBIN 30.6 pg (27.0-33.4); MEAN CORPUSCULAR HGB CONC 33.1 g/dL (32.0-36.0); MEAN CORPUSCULAR VOLUME 92 fl (80-97); MONOCYTES % (AUTO) 10.1 % (3-13); PLATELET COUNT 345 10^3/uL (150-450); RED BLOOD COUNT 3.63 10^6/uL (3.72-5.28); SEGMENTED NEUTROPHILS % (AUTO) 44.4 % (42-78); TOTAL CELLS COUNTED % (AUTO) 100 %; WHITE BLOOD COUNT 6.3 10^3/uL (4.0-10.5)
[2018-08-17 15:12] LABS: PARTIAL THROMBOPLASTIN TIME 33.2 SEC (23.5-35.8); PROTHROMBIN TIME 13.8 SEC (11.4-15.4)
[2018-08-17 15:13] LABS: VENOUS BLOOD BASE EXCESS 1.1 mmol/L; VENOUS BLOOD HCO3 26.3 mmol/L (20-32); VENOUS BLOOD PCO2 44.2 mmHg (35-63); VENOUS BLOOD PH 7.39 (7.30-7.42)
[2018-08-17 15:25] LABS: ANION GAP 8 (5-19); BLOOD UREA NITROGEN 10 mg/dL (7-20); CALCIUM 9.6 mg/dL (8.4-10.2); CARBON DIOXIDE 27 mmol/L (22-30); CHLORIDE 106 mmol/L (98-107); POTASSIUM 3.6 mmol/L (3.6-5.0); SODIUM 141.3 mmol/L (137-145)
[2018-08-17 15:27] LABS: GLUCOSE 67 mg/dL (75-110)
--- NOTE | 2018-08-17 16:07 | PDOC CONSULTATION ---
History of Present Illness Admission Date/PCP: 08/17/18 13:30 LUKASZ ORNELAS History of Present Illness: ARIELLA JUAREZ is a 53 year old female Past Medical History Cardiac Medical History: Reports: Congestive Heart Failure, Hyperlipidema Denies: Coronary Artery Disease, Myocardial Infarction, Hypertension Pulmonary Medical History: Reports: Asthma, Bronchitis, Chronic Obstructive Pulmonary Disease (COPD), Pneumonia Denies: Respiratory Failure, Sleep Apnea, Tuberculosis Neurological Medical History: Denies: Seizures Endocrine Medical History: Malignancy Medical History: Reports: Breast Cancer GI Medical History: Reports: Gastroesophageal Reflux Disease, Hiatal Hernia Musculoskeltal Medical History: Denies: Arthritis Psychiatric Medical History: Denies: Dementia, Depression Hematology: Denies: Anemia Past Surgical History Past Surgical History: Reports: Mastectomy - bilat 2010, Orthopedic Surgery - left shoulder replacement 09/10 Denies: Hysterectomy, Pacemaker Social History Smoking Status: Unknown if Ever Smoked Frequency of Alcohol Use: Occasional Hx Recreational Drug Use: No Drugs: None Hx Prescription Drug Abuse: No Family History Family History: Hypertension Parental Family History Reviewed: No Children Family History Reviewed: NA Sibling(s) Family History Reviewed.: NA Medication/Allergy Home Medications: Albuterol Sulfate [Proair HFA Inhalation Aerosol 8.5 gm MDI] 2 puff IH Q4HP PRN 06/15/18 Diltiazem HCl [Cartia Xt] 120 mg PO DAILY 06/15/18 Ferrous Sulfate [Feosol 325 mg Tablet] 325 mg PO DAILY 06/15/18 Lansoprazole 30 mg PO Q6AM 06/15/18 Montelukast Sodium [Singulair 10 mg Tablet] 10 mg PO QPM 06/15/18 Rivaroxaban [Xarelto] 20 mg PO WSUPPER 06/15/18 Fluticasone/Umeclidin/Vilanter [Trelegy 100-62.5-25 Mcg Ellipta 14 Dose/Dpi] 1 inh IH DAILY #1 inhaler 06/21/18 Albuterol Sulfate [Ventolin 0.083% Neb 2.5 mg/3 mL Ampul] 1 vial NEB RTQ6HP PRN 08/13/18 Dronabinol [Marinol 2.5 mg Capsule] 5 mg PO BIDACBS 08/13/18 Magnesium Oxide [Mag-Ox 400 mg Tablet] 400 mg PO DAILY 08/13/18 Allergies/Adverse Reactions: prednisone [Prednisone] Adverse Reaction (Intermediate, Verified 08/17/18 13:57) Review of Systems Constitutional: PRESENT: as per HPI, weakness Cardiovascular: PRESENT: as per HPI Gastrointestinal: PRESENT: as per HPI Genitourinary: PRESENT: as per HPI Musculoskeletal: PRESENT: as per HPI Integumentary: PRESENT: as per HPI Neurological: PRESENT: as per HPI Psychiatric: PRESENT: as per HPI Endocrine: PRESENT: as per HPI Hematologic/Lymphatic: PRESENT: as per HPI Allergic/Immunologic: PRESENT: as per HPI Physical Exam Vital Signs: Temp Pulse Resp BP Pulse Ox 98.8 F 20 118/88 H 100 08/17/18 12:33 08/17/18 15:01 08/17/18 15:00 08/17/18 15:01 Intake & Output 08/16/18 08/17/18 08/18/18 06:59 06:59 06:59 Weight 48.534 kg General appearance: PRESENT: mild distress Head exam: PRESENT: normocephalic Eye exam: PRESENT: conjunctiva pink Neck exam: PRESENT: full ROM Respiratory exam: PRESENT: accessory muscle use, clear to auscultation darinel Cardiovascular exam: PRESENT: RRR Pulses: PRESENT: normal radial pulses, normal femoral pulses GI/Abdominal exam: PRESENT: soft Rectal exam: PRESENT: deferred Extremities exam: PRESENT: full ROM Musculoskeletal exam: PRESENT: full ROM Neurological exam: PRESENT: alert, awake Psychiatric exam: PRESENT: appropriate affect Results Laboratory Results: 08/17/18 14:45 08/17/18 14:45 08/17/18 08/17/18 08/17/18 14:45 14:45 14:45 WBC 6.3 RBC 3.63 L Hgb 11.1 L Hct 33.5 L MCV 92 MCH 30.6 MCHC 33.1 RDW 16.0 H Plt Count 345 Seg Neutrophils % 44.4 Lymphocytes % 41.2 Monocytes % 10.1 Eosinophils % 3.1 Basophils % 1.2 Absolute Neutrophils 2.8 Absolute Lymphocytes 2.6 Absolute Monocytes 0.6 Absolute Eosinophils 0.2 Absolute Basophils 0.1 VBG pH 7.39 VBG pCO2 44.2 VBG HCO3 26.3 VBG Base Excess 1.1 Sodium 141.3 Potassium 3.6 Chloride 106 Carbon Dioxide 27 Anion Gap 8 BUN 10 Creatinine 0.59 Est GFR ( Amer) > 60 Est GFR (Non-Af Amer) > 60 Glucose 67 L Calcium 9.6 Assessment & Plan - Plan Summary Plan Summary: 53-year-old female with COPD, congestive heart failure, hyperlipidemia, previous history of CVA, recently found pulmonary nodule in the right lung which she underwent a lung biopsy for on 08/15/2018. At that time patient experienced a pneumothorax and a pigtail catheter was placed. She was discharged home but was reevaluated today by Dr. Julio who saw a recurrent pneumothorax. Tube was repositioned and patient was placed on 20 mm of suctio pt is s/p lung bx with resulting ptx now with heimlich valve and resolution of ptx while on suction pt with recent cva and multiple medical problesms on xeralto plan will follow with medicine for her chest tube and ptx pt reports recent cva 2-3 days ago ok for her to restart xeraltol\
[2018-08-17] MEDS ORDERED: ALBUTEROL SULFATE 0.083% NEB 2.5 MG/3 ML AMPUL NEB PRN (18:28)
[2018-08-17 19:08] LABS: LIPASE 53.1 U/L (23-300); PHOSPHORUS 4.5 mg/dL (2.5-4.5)
[2018-08-17 19:23] LABS: FREE T4 (FREE THYROXINE) 1.17 ng/dL (0.78-2.19)
[2018-08-17 19:37] LABS: THYROID STIMULATING HORMONE 2.91 uIU/mL (0.47-4.68)
[2018-08-17 20:17] LABS: INTERNATIONAL RATION (INR) 0.99; PROTHROMBIN TIME 13.5 SEC (11.4-15.4)
[2018-08-17 20:18] LABS: PARTIAL THROMBOPLASTIN TIME 33.3 SEC (23.5-35.8)
[2018-08-17 20:28] LABS: CREATINE KINASE MB < 0.22 ng/mL (<4.55); TROPONIN I < 0.012 ng/mL
[2018-08-17] MEDS ORDERED: ALBUTEROL SULFATE HFA (90 MCG/PUFF) 200 PUFF/8.5 GM MDI IH PRN (21:00)
[2018-08-17] MEDS: FERROUS SULFATE 325 MG TABLET PO SCH (21:07)
[2018-08-17] MEDS: MONTELUKAST SODIUM 10 MG TABLET PO SCH (21:07)
[2018-08-17] MEDS: OXYCODONE-ACETAMINOPHEN 5-325 MG TABLET PO PRN (21:07)
[2018-08-17] MEDS: MAGNESIUM OXIDE 400 MG TABLET PO SCH (21:07)
[2018-08-17] MEDS: DILTIAZEM HCL 120 MG CAP.SR.24H PO SCH (21:07)
[2018-08-17] MEDS: DRONABINOL 2.5 MG CAPSULE PO SCH (21:08)
[2018-08-18 01:06] LABS: APPEARANCE,URINE SLIGHTLY-CLOUDY; BILIRUBIN,URINE NEGATIVE (NEGATIVE); CALCIUM OXALATE CRYSTALS,URINE FEW /HPF; COLOR,URINE AMBER; GLUCOSE, URINE NEGATIVE (NEGATIVE); KETONES,URINE NEGATIVE (NEGATIVE); LEUKOCYTE ESTERASE,URINE NEGATIVE (NEGATIVE); NITRITE,URINE NEGATIVE (NEGATIVE); PROTEIN,URINE NEGATIVE (NEGATIVE); URINE SPECIFIC GRAVITY 1.027
[2018-08-18 01:17] LABS: URINE AMPHETAMINES SCREEN NEGATIVE; URINE BARBITURATES SCREEN NEGATIVE; URINE BENZODIAZEPINES SCREEN NEGATIVE; URINE COCAINE SCREEN NEGATIVE; URINE METHADONE SCREEN NEGATIVE; URINE PHENCYCLIDINE SCREEN NEGATIVE
[2018-08-18 02:07] LABS: CREATINE KINASE MB < 0.22 ng/mL (<4.55); TROPONIN I < 0.012 ng/mL
[2018-08-18 03:41] LABS: URINE MARIJUANA (THC) SCREEN UNCONFIRMED POSITIVE
[2018-08-18] MEDS: LANSOPRAZOLE 30 MG TAB.RAP.DR PO SCH (05:51)
[2018-08-18] MEDS ORDERED: (PENDING PHARMACY ID) (Lansoprazole [Lansoprazole] 30 MG) PO SCH (06:00)
[2018-08-18 08:06] LABS: ABSOLUTE BASOPHILS # (AUTO) 0.1 10^3/uL (0.0-0.2); ABSOLUTE EOSINOPHILS # (AUTO) 0.3 10^3/uL (0.0-0.6); ABSOLUTE LYMPHOCYTES (AUTO) 1.7 10^3/uL (0.5-4.7); ABSOLUTE MONOCYTES (AUTO) 0.7 10^3/uL (0.1-1.4); ABSOLUTE NEUT (AUTO) 1.5 10^3/uL (1.7-8.2); BASOPHILS % (AUTO) 1.5 % (0-2); EOSINOPHILS % (AUTO) 6.6 % (0-6); HEMATOCRIT 30.1 % (36.0-47.0); HEMOGLOBIN 10.1 g/dL (12.0-15.5); LYMPHOCYTES % (AUTO) 40.6 % (13-45); MEAN CORPUSCULAR HEMOGLOBIN 30.7 pg (27.0-33.4); MEAN CORPUSCULAR HGB CONC 33.6 g/dL (32.0-36.0); MEAN CORPUSCULAR VOLUME 91 fl (80-97); MONOCYTES % (AUTO) 15.9 % (3-13); PLATELET COUNT 318 10^3/uL (150-450); RED CELL DISTRIBUTION WIDTH 15.5 % (11.5-14.0); SEGMENTED NEUTROPHILS % (AUTO) 35.4 % (42-78); TOTAL CELLS COUNTED % (AUTO) 100 %; WHITE BLOOD COUNT 4.2 10^3/uL (4.0-10.5)
[2018-08-18] MEDS: DRONABINOL 2.5 MG CAPSULE PO SCH ×2 (08:19→17:15)
[2018-08-18] MEDS: OXYCODONE-ACETAMINOPHEN 5-325 MG TABLET PO PRN (08:19)
[2018-08-18 08:27] LABS: ALANINE AMINOTRANSFERASE 25 U/L (9-52); ALBUMIN 2.7 g/dL (3.5-5.0); ALKALINE PHOSPHATASE 49 U/L (38-126); ANION GAP 5 (5-19); ASPARTATE AMINO TRANSFERASE 17 U/L (14-36); BILIRUBIN,DIRECT 0.1 mg/dL (0.0-0.4); BILIRUBIN,TOTAL 0.5 mg/dL (0.2-1.3); BLOOD UREA NITROGEN 9 mg/dL (7-20); CARBON DIOXIDE 28 mmol/L (22-30); CHLORIDE 107 mmol/L (98-107); CHOLESTEROL 98.03 mg/dL (0-200); CREATINE KINASE 25 U/L (30-135); GLUCOSE 93 mg/dL (75-110); POTASSIUM 3.4 mmol/L (3.6-5.0); SODIUM 140.4 mmol/L (137-145); TOTAL PROTEIN 5.3 g/dL (6.3-8.2); TRIGLYCERIDES 45 mg/dL (<150)
[2018-08-18 08:38] LABS: DIRECT LDL 60 mg/dL (<100)
--- NOTE | 2018-08-18 08:46 | PDOC PROGRESS REPORT ---
Subjective Progress Note for:: 08/18/18 Reason For Visit: PNEUMOTHORAX Physical Exam Vital Signs: Temp Pulse Resp BP Pulse Ox 98.2 F 92 23 H 105/67 94 08/18/18 08:01 08/18/18 08:01 08/18/18 08:01 08/18/18 08:01 08/18/18 08:01 Intake & Output 08/17/18 08/18/18 08/19/18 06:59 06:59 06:59 Intake Total 240 Output Total 100 Balance 140 Weight 49.8 kg General appearance: PRESENT: mild distress Respiratory exam: PRESENT: chest wall tenderness, clear to auscultation darinel Cardiovascular exam: PRESENT: RRR Pulses: PRESENT: normal radial pulses, normal femoral pulses GI/Abdominal exam: PRESENT: soft - cxr reviwed pt does have some tube site tenderness and irritation with deep inspiration ptx present on this am cxr small. slightly improved discussed with radiology will obtain left decub cxr and radiology will reeval will hold off on chest tube insertion for now. Results Laboratory Results: 08/18/18 07:39 08/17/18 08/17/18 08/17/18 14:45 14:45 14:45 WBC 6.3 RBC 3.63 L Hgb 11.1 L Hct 33.5 L MCV 92 MCH 30.6 MCHC 33.1 RDW 16.0 H Plt Count 345 Seg Neutrophils % 44.4 Lymphocytes % 41.2 Monocytes % 10.1 Eosinophils % 3.1 Basophils % 1.2 Absolute Neutrophils 2.8 Absolute Lymphocytes 2.6 Absolute Monocytes 0.6 Absolute Eosinophils 0.2 Absolute Basophils 0.1 VBG pH 7.39 VBG pCO2 44.2 VBG HCO3 26.3 VBG Base Excess 1.1 Sodium 141.3 Potassium 3.6 Chloride 106 Carbon Dioxide 27 Anion Gap 8 BUN 10 Creatinine 0.59 Est GFR ( Amer) > 60 Est GFR (Non-Af Amer) > 60 Glucose 67 L Calcium 9.6 Phosphorus Ammonia Amylase Lipase TSH Free T4 Urine Color Urine Appearance Urine pH Ur Specific [place] Urine Protein Urine Glucose (UA) Urine Ketones Urine Blood Urine Nitrite Ur Leukocyte Esterase Urine WBC (Auto) Urine RBC (Auto) 08/17/18 08/17/18 08/17/18 14:45 14:45 19:30 WBC RBC Hgb Hct MCV MCH MCHC RDW Plt Count Seg Neutrophils % Lymphocytes % Monocytes % Eosinophils % Basophils % Absolute Neutrophils Absolute Lymphocytes Absolute Monocytes Absolute Eosinophils Absolute Basophils VBG pH VBG pCO2 VBG HCO3 VBG Base Excess Sodium Potassium Chloride Carbon Dioxide Anion Gap BUN Creatinine Est GFR ( Amer) Est GFR (Non-Af Amer) Glucose Calcium Phosphorus 4.5 Ammonia < 8.7 L Amylase 35 Lipase 53.1 TSH 2.91 Free T4 1.17 Urine Color Urine Appearance Urine pH Ur Specific [place] Urine Protein Urine Glucose (UA) Urine Ketones Urine Blood Urine Nitrite Ur Leukocyte Esterase Urine WBC (Auto) Urine RBC (Auto) 08/18/18 08/18/18 00:35 07:39 WBC 4.2 RBC 3.30 L Hgb 10.1 L Hct 30.1 L MCV 91 MCH 30.7 MCHC 33.6 RDW 15.5 H Plt Count 318 Seg Neutrophils % 35.4 L Lymphocytes % 40.6 Monocytes % 15.9 H Eosinophils % 6.6 H Basophils % 1.5 Absolute Neutrophils 1.5 L Absolute Lymphocytes 1.7 Absolute Monocytes 0.7 Absolute Eosinophils 0.3 Absolute Basophils 0.1 VBG pH VBG pCO2 VBG HCO3 VBG Base Excess Sodium Potassium Chloride Carbon Dioxide Anion Gap BUN Creatinine Est GFR ( Amer) Est GFR (Non-Af Amer) Glucose Calcium Phosphorus Ammonia Amylase Lipase TSH Free T4 Urine Color NEAL Urine Appearance SLIGHTLY-CLOUDY Urine pH 5.0 Ur Specific [place] 1.027 Urine Protein NEGATIVE Urine Glucose (UA) NEGATIVE Urine Ketones NEGATIVE Urine Blood NEGATIVE Urine Nitrite NEGATIVE Ur Leukocyte Esterase NEGATIVE Urine WBC (Auto) 2 Urine RBC (Auto) 2 08/17/18 08/17/18 08/18/18 19:30 19:30 01:33 Creatine Kinase 28 L CK-MB (CK-2) < 0.22 < 0.22 Troponin I < 0.012 < 0.012 08/18/18 01:33 Creatine Kinase 28 L CK-MB (CK-2) Troponin I
[2018-08-18 08:48] LABS: CREATINE KINASE MB < 0.22 ng/mL (<4.55); TROPONIN I < 0.012 ng/mL
[2018-08-18] MEDS: FLUTICASONE/UMECLIDIN/VILANTER 100-62.5-25 MCG/DOSE IH SCH (10:01)
[2018-08-18] MEDS: FERROUS SULFATE 325 MG TABLET PO SCH (10:01)
[2018-08-18] MEDS: MAGNESIUM OXIDE 400 MG TABLET PO SCH (10:01)
[2018-08-18] MEDS: DILTIAZEM HCL 120 MG CAP.SR.24H PO SCH (10:01)
[2018-08-18] MEDS: KETOROLAC TROMETHAMINE INJ/PF 30 MG/1 ML SDV IV PRN (10:02)
--- NOTE | 2018-08-18 10:30 | RADIOLOGY REPORT (SQ) ---
EXAM DESCRIPTION: CHEST 2 VIEWS COMPLETED DATE/TIME: 08/18/2018 9:47 am REASON FOR STUDY: ptx COMPARISON: Earlier same day. EXAM PARAMETERS: NUMBER OF VIEWS: two views TECHNIQUE: Digital bilateral decubitus radiographic views of the chest acquired. RADIATION DOSE: NA LIMITATIONS: none FINDINGS: Right chest tube in place. Right apical pneumothorax estimated 20%. No progression. No effusion. IMPRESSION: Right apical pneumothorax. No significant change. TECHNICAL DOCUMENTATION: JOB ID: [id number] [employer]- All Rights Reserved Reading location - IP/workstation name: [email or web address]
--- NOTE | 2018-08-18 11:07 | RADIOLOGY REPORT (SQ) ---
EXAM DESCRIPTION: CHEST SINGLE VIEW COMPLETED DATE/TIME: 08/18/2018 8:39 am REASON FOR STUDY: chest tube COMPARISON: Previous day. NUMBER OF VIEWS: One view. TECHNIQUE: Single frontal radiographic image of the chest acquired. LIMITATIONS: None. FINDINGS: LUNGS AND PLEURA: Right apical pneumothorax not significantly changed. MEDIASTINUM AND HEART: Stable heart size and mediastinal structures. SUPPORT DEVICES: Appropriate location without change. BONY STRUCTURES: No acute findings. HARDWARE: None. OTHER: No other significant finding. IMPRESSION: Right apical pneumothorax without significant change. Reading location - IP/workstation name: [email or web address]
[2018-08-18] MEDS ORDERED: DIPHENHYDRAMINE HCL 25 MG CAPSULE PO PRN (13:50)
--- NOTE | 2018-08-18 13:51 | PDOC H&P ---
History of Present Illness Admission Date/PCP: 08/17/18 13:30 LUKASZ ORNELAS History of Present Illness: ARIELLA JUAREZ is a 53 year old female, she was recently admitted in this hospital on 08/15/2018 when she presented with symptoms and signs suggestive of transient ischemic attack, on that admission she was started on Xarelto. She has a history of breast cancer, bilateral mastectomy ,she has solitary pulmonary nodule that was biopsy on 08/15/2018 this was complicated with a pneumothorax, she had a pigtail catheter inserted on 08/15/2018, she came to the emergency room for evaluation of progressive shortness of breath chest x-ray was done it demonstrated reaccumulation of the pneumothorax she was then referred to the ER and a chest tube was inserted, the emergency room physician is requesting inpatient care for this patient. I saw the patient on the floor she complained of shortness of breath and chest pain but the main symptom is chest pain Past Medical History Cardiac Medical History: Reports: Hyperlipidema Pulmonary Medical History: Reports: Asthma, Bronchitis, Chronic Obstructive Pulmonary Disease (COPD), Pneumonia Endocrine Medical History: Malignancy Medical History: Reports: Breast Cancer GI Medical History: Reports: Gastroesophageal Reflux Disease, Hiatal Hernia Hematology: Past Surgical History Past Surgical History: Reports: Mastectomy - bilat 2010, Orthopedic Surgery - left shoulder replacement 09/10 Social History Lives with: Family Smoking Status: Former Smoker Number of Years Smokin Frequency of Alcohol Use: Occasional Hx Recreational Drug Use: No Drugs: None Hx Prescription Drug Abuse: No - Advance Directive Resuscitation Status: Do Not Resuscitate Family History Family History: Hypertension Parental Family History Reviewed: Yes Children Family History Reviewed: Yes Sibling(s) Family History Reviewed.: Yes Medication/Allergy Home Medications: Albuterol Sulfate [Proair HFA Inhalation Aerosol 8.5 gm MDI] 2 puff IH Q4HP PRN 06/15/18 Diltiazem HCl [Cartia Xt] 120 mg PO DAILY 06/15/18 Ferrous Sulfate [Feosol 325 mg Tablet] 325 mg PO DAILY 06/15/18 Lansoprazole 30 mg PO Q6AM 06/15/18 Montelukast Sodium [Singulair 10 mg Tablet] 10 mg PO QPM 06/15/18 Rivaroxaban [Xarelto] 20 mg PO WSUPPER 06/15/18 Fluticasone/Umeclidin/Vilanter [Trelegy 100-62.5-25 Mcg Ellipta 14 Dose/Dpi] 1 inh IH DAILY #1 inhaler 06/21/18 Albuterol Sulfate [Ventolin 0.083% Neb 2.5 mg/3 mL Ampul] 1 vial NEB RTQ6HP PRN 08/13/18 Dronabinol [Marinol 2.5 mg Capsule] 5 mg PO BIDACBS 08/13/18 Magnesium Oxide [Mag-Ox 400 mg Tablet] 400 mg PO DAILY 08/13/18 Allergies/Adverse Reactions: prednisone [Prednisone] Adverse Reaction (Intermediate, Verified 08/17/18 13:57) Review of Systems Constitutional: ABSENT: chills, fever(s), headache(s), weight gain, weight loss Eyes: ABSENT: visual disturbances Ears: ABSENT: hearing changes Cardiovascular: PRESENT: dyspnea on exertion Respiratory: ABSENT: cough, hemoptysis Gastrointestinal: ABSENT: abdominal pain, constipation, diarrhea, hematemesis, hematochezia, nausea, vomiting Genitourinary: ABSENT: dysuria, hematuria Musculoskeletal: ABSENT: joint swelling Integumentary: ABSENT: rash, wounds Neurological: ABSENT: abnormal gait, abnormal speech, confusion, dizziness, focal weakness, syncope Psychiatric: ABSENT: anxiety, depression, homidical ideation, suicidal ideation Endocrine: ABSENT: cold intolerance, heat intolerance, menstrual abnormalities, polydipsia, polyuria Hematologic/Lymphatic: ABSENT: easy bleeding, easy bruising, lymphadenopathy Physical Exam Vital Signs: Temp Pulse Resp BP Pulse Ox 98.6 F 84 20 103/56 L 93 08/18/18 11:36 08/18/18 11:36 08/18/18 11:36 08/18/18 11:36 08/18/18 11:36 Intake & Output 08/17/18 08/18/18 08/19/18 06:59 06:59 06:59 Intake Total 240 Output Total 100 Balance 140 Weight 49.8 kg General appearance: PRESENT: no acute distress, well-developed, well-nourished Head exam: PRESENT: atraumatic, normocephalic Eye exam: PRESENT: conjunctiva pink, EOMI, PERRLA Ear exam: PRESENT: normal external ear exam Mouth exam: PRESENT: moist, tongue midline Neck exam: PRESENT: full ROM Respiratory exam: PRESENT: clear to auscultation darinel Cardiovascular exam: PRESENT: RRR, +S1, +S2 Pulses: PRESENT: normal dorsalis pedis pul, +2 pedal pulses bilateral Vascular exam: PRESENT: normal capillary refill GI/Abdominal exam: PRESENT: normal bowel sounds, soft Rectal exam: PRESENT: deferred Neurological exam: PRESENT: alert, awake, oriented to person, oriented to place, oriented to time, oriented to situation, CN II-XII grossly intact Psychiatric exam: PRESENT: appropriate affect, normal mood Skin exam: PRESENT: dry, intact, warm Results Laboratory Results: 08/18/18 07:39 08/18/18 07:39 08/17/18 08/17/18 08/17/18 14:45 14:45 14:45 WBC 6.3 RBC 3.63 L Hgb 11.1 L Hct 33.5 L MCV 92 MCH 30.6 MCHC 33.1 RDW 16.0 H Plt Count 345 Seg Neutrophils % 44.4 Lymphocytes % 41.2 Monocytes % 10.1 Eosinophils % 3.1 Basophils % 1.2 Absolute Neutrophils 2.8 Absolute Lymphocytes 2.6 Absolute Monocytes 0.6 Absolute Eosinophils 0.2 Absolute Basophils 0.1 VBG pH 7.39 VBG pCO2 44.2 VBG HCO3 26.3 VBG Base Excess 1.1 Sodium 141.3 Potassium 3.6 Chloride 106 Carbon Dioxide 27 Anion Gap 8 BUN 10 Creatinine 0.59 Est GFR ( Amer) > 60 Est GFR (Non-Af Amer) > 60 Glucose 67 L Calcium 9.6 Phosphorus Magnesium Total Bilirubin AST ALT Alkaline Phosphatase Ammonia Total Protein Albumin Triglycerides Cholesterol LDL Cholesterol Direct VLDL Cholesterol HDL Cholesterol Amylase Lipase TSH Free T4 Urine Color Urine Appearance Urine pH Ur Specific [place] Urine Protein Urine Glucose (UA) Urine Ketones Urine Blood Urine Nitrite Ur Leukocyte Esterase Urine WBC (Auto) Urine RBC (Auto) 08/17/18 08/17/18 08/17/18 14:45 14:45 19:30 WBC RBC Hgb Hct MCV MCH MCHC RDW Plt Count Seg Neutrophils % Lymphocytes % Monocytes % Eosinophils % Basophils % Absolute Neutrophils Absolute Lymphocytes Absolute Monocytes Absolute Eosinophils Absolute Basophils VBG pH VBG pCO2 VBG HCO3 VBG Base Excess Sodium Potassium Chloride Carbon Dioxide Anion Gap BUN Creatinine Est GFR ( Amer) Est GFR (Non-Af Amer) Glucose Calcium Phosphorus 4.5 Magnesium Total Bilirubin AST ALT Alkaline Phosphatase Ammonia < 8.7 L Total Protein Albumin Triglycerides Cholesterol LDL Cholesterol Direct VLDL Cholesterol HDL Cholesterol Amylase 35 Lipase 53.1 TSH 2.91 Free T4 1.17 Urine Color Urine Appearance Urine pH Ur Specific [place] Urine Protein Urine Glucose (UA) Urine Ketones Urine Blood Urine Nitrite Ur Leukocyte Esterase Urine WBC (Auto) Urine RBC (Auto) 08/18/18 08/18/18 08/18/18 00:35 07:39 07:39 WBC 4.2 RBC 3.30 L Hgb 10.1 L Hct 30.1 L MCV 91 MCH 30.7 MCHC 33.6 RDW 15.5 H Plt Count 318 Seg Neutrophils % 35.4 L Lymphocytes % 40.6 Monocytes % 15.9 H Eosinophils % 6.6 H Basophils % 1.5 Absolute Neutrophils 1.5 L Absolute Lymphocytes 1.7 Absolute Monocytes 0.7 Absolute Eosinophils 0.3 Absolute Basophils 0.1 VBG pH VBG pCO2 VBG HCO3 VBG Base Excess Sodium 140.4 Potassium 3.4 L Chloride 107 Carbon Dioxide 28 Anion Gap 5 BUN 9 Creatinine 0.56 Est GFR ( Amer) > 60 Est GFR (Non-Af Amer) > 60 Glucose 93 Calcium 9.0 Phosphorus Magnesium 1.7 Total Bilirubin 0.5 AST 17 ALT 25 Alkaline Phosphatase 49 Ammonia Total Protein 5.3 L Albumin 2.7 L Triglycerides 45 Cholesterol 98.03 LDL Cholesterol Direct 60 VLDL Cholesterol 9.0 L HDL Cholesterol 34 L Amylase Lipase TSH Free T4 Urine Color NEAL Urine Appearance SLIGHTLY-CLOUDY Urine pH 5.0 Ur Specific [place] 1.027 Urine Protein NEGATIVE Urine Glucose (UA) NEGATIVE Urine Ketones NEGATIVE Urine Blood NEGATIVE Urine Nitrite NEGATIVE Ur Leukocyte Esterase NEGATIVE Urine WBC (Auto) 2 Urine RBC (Auto) 2 08/17/18 08/17/18 08/18/18 19:30 19:30 01:33 Creatine Kinase 28 L CK-MB (CK-2) < 0.22 < 0.22 Troponin I < 0.012 < 0.012 08/18/18 08/18/18 08/18/18 01:33 07:39 07:39 Creatine Kinase 28 L 25 L CK-MB (CK-2) < 0.22 Troponin I < 0.012 Impressions: Chest X-Ray 08/18/18 00:00 IMPRESSION: Right apical pneumothorax without significant change. Assessment & Plan - Diagnosis (1) Pneumothorax after biopsy Is this a current diagnosis for this admission?: Yes Plan: Patient has a chest tube in place, this was inserted by the surgeon (2) Hypertension Qualifiers: Hypertension type: essential hypertension Qualified Code(s): I10 - Essential (primary) hypertension Is this a current diagnosis for this admission?: Yes Plan: Continue home meds (3) COPD (chronic obstructive pulmonary disease) Qualifiers: COPD type: unspecified COPD Qualified Code(s): J44.9 - Chronic obstructive pulmonary disease, unspecified Is this a current diagnosis for this admission?: Yes
[2018-08-18] MEDS: RIVAROXABAN 10 MG TABLET PO SCH (17:21)
[2018-08-18] MEDS: MONTELUKAST SODIUM 10 MG TABLET PO SCH (17:22)
--- NOTE | 2018-08-18 17:45 | PDOC PROGRESS REPORT ---
Subjective Progress Note for:: 08/18/18 Subjective:: Patient seen by the bedside, she was seen by the surgeon, complaining of itching, contemplating inserting a larger chest tube Reason For Visit: PNEUMOTHORAX Physical Exam Vital Signs: Temp Pulse Resp BP Pulse Ox 98.2 F 86 18 95/60 L 95 08/18/18 15:37 08/18/18 15:37 08/18/18 15:37 08/18/18 15:37 08/18/18 15:37 Intake & Output 08/17/18 08/18/18 08/19/18 06:59 06:59 06:59 Intake Total 240 Output Total 100 Balance 140 Weight 49.8 kg General appearance: PRESENT: no acute distress Eye exam: PRESENT: PERRLA Respiratory exam: PRESENT: clear to auscultation darinel Cardiovascular exam: PRESENT: +S1, +S2 GI/Abdominal exam: PRESENT: soft Neurological exam: PRESENT: alert Results Laboratory Results: 08/18/18 07:39 08/18/18 07:39 08/17/18 08/17/18 08/17/18 14:45 14:45 19:30 WBC RBC Hgb Hct MCV MCH MCHC RDW Plt Count Seg Neutrophils % Lymphocytes % Monocytes % Eosinophils % Basophils % Absolute Neutrophils Absolute Lymphocytes Absolute Monocytes Absolute Eosinophils Absolute Basophils Sodium Potassium Chloride Carbon Dioxide Anion Gap BUN Creatinine Est GFR ( Amer) Est GFR (Non-Af Amer) Glucose Calcium Phosphorus 4.5 Magnesium Total Bilirubin AST ALT Alkaline Phosphatase Ammonia < 8.7 L Total Protein Albumin Triglycerides Cholesterol LDL Cholesterol Direct VLDL Cholesterol HDL Cholesterol Amylase 35 Lipase 53.1 TSH 2.91 Free T4 1.17 Urine Color Urine Appearance Urine pH Ur Specific [place] Urine Protein Urine Glucose (UA) Urine Ketones Urine Blood Urine Nitrite Ur Leukocyte Esterase Urine WBC (Auto) Urine RBC (Auto) 08/18/18 08/18/18 08/18/18 00:35 07:39 07:39 WBC 4.2 RBC 3.30 L Hgb 10.1 L Hct 30.1 L MCV 91 MCH 30.7 MCHC 33.6 RDW 15.5 H Plt Count 318 Seg Neutrophils % 35.4 L Lymphocytes % 40.6 Monocytes % 15.9 H Eosinophils % 6.6 H Basophils % 1.5 Absolute Neutrophils 1.5 L Absolute Lymphocytes 1.7 Absolute Monocytes 0.7 Absolute Eosinophils 0.3 Absolute Basophils 0.1 Sodium 140.4 Potassium 3.4 L Chloride 107 Carbon Dioxide 28 Anion Gap 5 BUN 9 Creatinine 0.56 Est GFR ( Amer) > 60 Est GFR (Non-Af Amer) > 60 Glucose 93 Calcium 9.0 Phosphorus Magnesium 1.7 Total Bilirubin 0.5 AST 17 ALT 25 Alkaline Phosphatase 49 Ammonia Total Protein 5.3 L Albumin 2.7 L Triglycerides 45 Cholesterol 98.03 LDL Cholesterol Direct 60 VLDL Cholesterol 9.0 L HDL Cholesterol 34 L Amylase Lipase TSH Free T4 Urine Color NEAL Urine Appearance SLIGHTLY-CLOUDY Urine pH 5.0 Ur Specific [place] 1.027 Urine Protein NEGATIVE Urine Glucose (UA) NEGATIVE Urine Ketones NEGATIVE Urine Blood NEGATIVE Urine Nitrite NEGATIVE Ur Leukocyte Esterase NEGATIVE Urine WBC (Auto) 2 Urine RBC (Auto) 2 08/17/18 08/17/18 08/18/18 19:30 19:30 01:33 Creatine Kinase 28 L CK-MB (CK-2) < 0.22 < 0.22 Troponin I < 0.012 < 0.012 08/18/18 08/18/18 08/18/18 01:33 07:39 07:39 Creatine Kinase 28 L 25 L CK-MB (CK-2) < 0.22 Troponin I < 0.012 Impressions: Chest X-Ray 08/18/18 00:00 IMPRESSION: Right apical pneumothorax without significant change. Assessment & Plan - Diagnosis (1) Pneumothorax after biopsy Is this a current diagnosis for this admission?: Yes Plan: Continue present treatment (2) Hypertension Qualifiers: Hypertension type: essential hypertension Qualified Code(s): I10 - Essential (primary) hypertension Is this a current diagnosis for this admission?: Yes (3) COPD (chronic obstructive pulmonary disease) Qualifiers: COPD type: unspecified COPD Qualified Code(s): J44.9 - Chronic obstructive pulmonary disease, unspecified Is this a current diagnosis for this admission?: Yes
[2018-08-19] MEDS: LANSOPRAZOLE 30 MG TAB.RAP.DR PO SCH (05:39)
[2018-08-19 06:06] LABS: ABSOLUTE BASOPHILS # (AUTO) 0.1 10^3/uL (0.0-0.2); ABSOLUTE EOSINOPHILS # (AUTO) 0.3 10^3/uL (0.0-0.6); ABSOLUTE LYMPHOCYTES (AUTO) 2.3 10^3/uL (0.5-4.7); ABSOLUTE MONOCYTES (AUTO) 0.5 10^3/uL (0.1-1.4); BASOPHILS % (AUTO) 1.2 % (0-2); EOSINOPHILS % (AUTO) 5.1 % (0-6); HEMATOCRIT 30.6 % (36.0-47.0); HEMOGLOBIN 10.1 g/dL (12.0-15.5); LYMPHOCYTES % (AUTO) 44.5 % (13-45); MEAN CORPUSCULAR HEMOGLOBIN 30.4 pg (27.0-33.4); MEAN CORPUSCULAR HGB CONC 33.1 g/dL (32.0-36.0); MEAN CORPUSCULAR VOLUME 92 fl (80-97); MONOCYTES % (AUTO) 10.6 % (3-13); PLATELET COUNT 278 10^3/uL (150-450); RED BLOOD COUNT 3.34 10^6/uL (3.72-5.28); SEGMENTED NEUTROPHILS % (AUTO) 38.6 % (42-78); TOTAL CELLS COUNTED % (AUTO) 100 %; WHITE BLOOD COUNT 5.1 10^3/uL (4.0-10.5)
[2018-08-19 06:34] LABS: ALANINE AMINOTRANSFERASE 14 U/L (9-52); ALBUMIN 2.7 g/dL (3.5-5.0); ALKALINE PHOSPHATASE 49 U/L (38-126); ANION GAP 6 (5-19); ASPARTATE AMINO TRANSFERASE 16 U/L (14-36); BILIRUBIN,DIRECT 0.2 mg/dL (0.0-0.4); BILIRUBIN,TOTAL 0.4 mg/dL (0.2-1.3); BLOOD UREA NITROGEN 10 mg/dL (7-20); CALCIUM 8.9 mg/dL (8.4-10.2); CARBON DIOXIDE 27 mmol/L (22-30); CHLORIDE 110 mmol/L (98-107); GLUCOSE 90 mg/dL (75-110); POTASSIUM 3.4 mmol/L (3.6-5.0); TOTAL PROTEIN 5.4 g/dL (6.3-8.2)
[2018-08-19] MEDS: DRONABINOL 2.5 MG CAPSULE PO SCH ×2 (08:47→18:11)
[2018-08-19] MEDS: DILTIAZEM HCL 120 MG CAP.SR.24H PO SCH (09:50)
[2018-08-19] MEDS: FERROUS SULFATE 325 MG TABLET PO SCH (09:50)
[2018-08-19] MEDS: MAGNESIUM OXIDE 400 MG TABLET PO SCH (09:52)
[2018-08-19] MEDS: OXYCODONE-ACETAMINOPHEN 5-325 MG TABLET PO PRN ×2 (09:53→18:10)
[2018-08-19] MEDS: FLUTICASONE/UMECLIDIN/VILANTER 100-62.5-25 MCG/DOSE IH SCH (09:54)
--- NOTE | 2018-08-19 09:56 | PDOC PROGRESS REPORT ---
Subjective Progress Note for:: 08/19/18 Reason For Visit: PNEUMOTHORAX Physical Exam Vital Signs: Temp Pulse Resp BP Pulse Ox 98.7 F 81 16 101/61 94 08/19/18 08:00 08/19/18 08:00 08/19/18 08:00 08/19/18 08:00 08/19/18 08:00 Intake & Output 08/18/18 08/19/18 08/20/18 06:59 06:59 06:59 Intake Total 240 Output Total 100 0 Balance 140 0 Weight 49.8 kg 53.7 kg General appearance: PRESENT: mild distress Head exam: PRESENT: normocephalic Eye exam: PRESENT: EOMI Neck exam: PRESENT: full ROM Respiratory exam: PRESENT: other - clear bilat, sl decreased on right. sl airleak on pleurovac Cardiovascular exam: PRESENT: RRR Vascular exam: PRESENT: normal capillary refill GI/Abdominal exam: PRESENT: soft Rectal exam: PRESENT: deferred Extremities exam: PRESENT: full ROM Musculoskeletal exam: PRESENT: full ROM Results Laboratory Results: 08/19/18 05:22 08/19/18 05:22 08/19/18 08/19/18 05:22 05:22 WBC 5.1 RBC 3.34 L Hgb 10.1 L Hct 30.6 L MCV 92 MCH 30.4 MCHC 33.1 RDW 16.0 H Plt Count 278 Seg Neutrophils % 38.6 L Lymphocytes % 44.5 Monocytes % 10.6 Eosinophils % 5.1 Basophils % 1.2 Absolute Neutrophils 2.0 Absolute Lymphocytes 2.3 Absolute Monocytes 0.5 Absolute Eosinophils 0.3 Absolute Basophils 0.1 Sodium 143.0 Potassium 3.4 L Chloride 110 H Carbon Dioxide 27 Anion Gap 6 BUN 10 Creatinine 0.57 Est GFR ( Amer) > 60 Est GFR (Non-Af Amer) > 60 Glucose 90 Calcium 8.9 Magnesium 1.8 Total Bilirubin 0.4 AST 16 ALT 14 Alkaline Phosphatase 49 Total Protein 5.4 L Albumin 2.7 L 08/17/18 08/17/18 08/18/18 19:30 19:30 01:33 Creatine Kinase 28 L CK-MB (CK-2) < 0.22 < 0.22 Troponin I < 0.012 < 0.012 08/18/18 08/18/18 08/18/18 01:33 07:39 07:39 Creatine Kinase 28 L 25 L CK-MB (CK-2) < 0.22 Troponin I < 0.012 Impressions: Chest X-Ray 08/18/18 00:00 IMPRESSION: Right apical pneumothorax without significant change. Assessment & Plan - Plan Summary Plan Summary: pt without sob this am pt has pleuitic cp inspiration due to tube. sl airleak on pleuovac with cough plan- repeat cxr this am * may need regular chest tube if * persistent leak or unresolved ptx.
--- NOTE | 2018-08-19 10:45 | RADIOLOGY REPORT (SQ) ---
EXAM DESCRIPTION: CHEST SINGLE VIEW COMPLETED DATE/TIME: 08/19/2018 10:35 am REASON FOR STUDY: ptx COMPARISON: Previous day. NUMBER OF VIEWS: One view. TECHNIQUE: Single frontal radiographic image of the chest acquired. LIMITATIONS: None. FINDINGS: LUNGS AND PLEURA: Right apical pneumothorax estimated 15% not significantly changed. Left lung is clear. MEDIASTINUM AND HEART: Stable heart size and mediastinal structures. SUPPORT DEVICES: Appropriate location without change. BONY STRUCTURES: No acute findings. HARDWARE: None. OTHER: No other significant finding. IMPRESSION: Small right apical pneumothorax. No significant change. Reading location - IP/workstation name: [email or web address]
[2018-08-19] MEDS ORDERED: FENTANYL CITRATE INJ/PF 100 MCG/2 ML AMPUL ONE (14:42)
[2018-08-19] MEDS ORDERED: MIDAZOLAM 2 MG/2 ML INJ ONE (14:42)
--- NOTE | 2018-08-19 16:30 | Operative Report ---
Nonrecallable Operative Report DATE OF SURGERY: 08/19/18 PREOPERATIVE DIAGNOSIS: Persistent right sided pneumothorax with air leak. POSTOPERATIVE DIAGNOSIS: Same as above OPERATION: Right tube thoracostomy SURGEON: PATRICIA JHA ANESTHESIA: Moderate Sedation TISSUE REMOVED OR ALTERED: None COMPLICATIONS: None apparent ESTIMATED BLOOD LOSS: Minimal PROCEDURE: Drains/implants: 28 Belgian chest tube. Procedure in detail: After informed consent was obtained, the patient was laid in the supine position in the intensive care unit. The area of the right chest was prepped and draped in a normal sterile fashion. The pigtail catheter was removed from the right anterolateral chest. 4 mg of Versed and 100 mcg of fen tanyl were given over the course of the procedure. An incision was created in the right lateral chest. Dissection was carried through the subcutaneous tissue to the level of the fourth interspace. The chest was entered bluntly with a Vivien clamp. It was spread. The tube was then inserted, after a finger sweep was performed. The tube was directed superiorly. It was sutured to the chest wall using 0 silk suture x2. A dressing was placed, and the procedure was concluded. The tube was attached to Pleur-evac suction. There was initially a small air leak identified, however this resolved with suction. All sponge, instrument, and needle counts were correct x2. Condition: Fair.
--- NOTE | 2018-08-19 17:54 | RADIOLOGY REPORT (SQ) ---
EXAM DESCRIPTION: CHEST SINGLE VIEW COMPLETED DATE/TIME: 08/19/2018 4:25 pm REASON FOR STUDY: chest tube placement COMPARISON: 08/19/2018 at 1013 hours EXAM PARAMETERS: NUMBER OF VIEWS: One view. TECHNIQUE: Single frontal radiographic view of the chest acquired. RADIATION DOSE: NA LIMITATIONS: None. FINDINGS: LUNGS AND PLEURA: Persistent small right apical pneumothorax. Minimal left basilar subseg mental atelectasis. No pleural effusion. MEDIASTINUM AND HILAR STRUCTURES: No masses. Contour normal. HEART AND VASCULAR STRUCTURES: Heart normal in size. Normal vasculature. BONES: No acute findings. HARDWARE: New chest tube insertion, side port near the lateral rib margin. OTHER: No other significant finding. IMPRESSION: New chest tube insertion, side port near the lateral rib margin, correlate clinically.Pe rsistent small right apical pneumothorax. TECHNICAL DOCUMENTATION: JOB ID: [id number] 2010 [employer]- All Rights Reserved Reading location - IP/workstation name: [email or web address]
[2018-08-19] MEDS ORDERED: MIDAZOLAM 2 MG/2 ML INJ IV ONE (18:00)
[2018-08-19] MEDS ORDERED: FENTANYL CITRATE INJ/PF 100 MCG/2 ML AMPUL IV ONE (18:00)
--- NOTE | 2018-08-19 18:04 | PDOC PROGRESS REPORT ---
Subjective Progress Note for:: 08/19/18 Subjective:: She has persistent pneumothorax, she has a pigtail catheter, this was replaced with a large bore chest tube today Reason For Visit: PNEUMOTHORAX Physical Exam Vital Signs: Temp Pulse Resp BP Pulse Ox 98.7 F 86 16 101/69 100 08/19/18 11:46 08/19/18 16:45 08/19/18 16:56 08/19/18 16:56 08/19/18 16:56 Intake & Output 08/18/18 08/19/18 08/20/18 06:59 06:59 06:59 Intake Total 240 30 Output Total 100 0 Balance 140 0 30 Weight 49.8 kg 53.7 kg General appearance: PRESENT: no acute distress Eye exam: PRESENT: PERRLA Respiratory exam: PRESENT: rhonchi Cardiovascular exam: PRESENT: +S1, +S2 GI/Abdominal exam: PRESENT: soft Neurological exam: PRESENT: alert Results Laboratory Results: 08/19/18 05:22 08/19/18 05:22 08/19/18 08/19/18 05:22 05:22 WBC 5.1 RBC 3.34 L Hgb 10.1 L Hct 30.6 L MCV 92 MCH 30.4 MCHC 33.1 RDW 16.0 H Plt Count 278 Seg Neutrophils % 38.6 L Lymphocytes % 44.5 Monocytes % 10.6 Eosinophils % 5.1 Basophils % 1.2 Absolute Neutrophils 2.0 Absolute Lymphocytes 2.3 Absolute Monocytes 0.5 Absolute Eosinophils 0.3 Absolute Basophils 0.1 Sodium 143.0 Potassium 3.4 L Chloride 110 H Carbon Dioxide 27 Anion Gap 6 BUN 10 Creatinine 0.57 Est GFR ( Amer) > 60 Est GFR (Non-Af Amer) > 60 Glucose 90 Calcium 8.9 Magnesium 1.8 Total Bilirubin 0.4 AST 16 ALT 14 Alkaline Phosphatase 49 Total Protein 5.4 L Albumin 2.7 L 08/17/18 08/17/18 08/18/18 19:30 19:30 01:33 Creatine Kinase 28 L CK-MB (CK-2) < 0.22 < 0.22 Troponin I < 0.012 < 0.012 08/18/18 08/18/18 08/18/18 01:33 07:39 07:39 Creatine Kinase 28 L 25 L CK-MB (CK-2) < 0.22 Troponin I < 0.012 Impressions: Chest X-Ray 08/19/18 00:00 IMPRESSION: New chest tube insertion, side port near the lateral rib margin, correlate clinically.Persistent small right apical pneumothorax. Assessment & Plan - Diagnosis (1) Pneumothorax after biopsy Is this a current diagnosis for this admission?: Yes Plan: Status post chest tube thoracostomy (2) Hypertension Qualifiers: Hypertension type: essential hypertension Qualified Code(s): I10 - Essential (primary) hypertension Is this a current diagnosis for this admission?: Yes (3) COPD (chronic obstructive pulmonary disease) Qualifiers: COPD type: unspecified COPD Qualified Code(s): J44.9 - Chronic obstructive pulmonary disease, unspecified Is this a current diagnosis for this admission?: Yes
[2018-08-19] MEDS: MONTELUKAST SODIUM 10 MG TABLET PO SCH (18:11)
[2018-08-19] MEDS: RIVAROXABAN 10 MG TABLET PO SCH (18:14)
[2018-08-19] MEDS: KETOROLAC TROMETHAMINE INJ/PF 30 MG/1 ML SDV IV PRN (21:00)
--- NOTE | 2018-08-19 23:40 | Progress Note ---
Provider Note Provider Note: Patient seen earlier tonight. Has R sided Chest tube. No central chest pain. Currently stable from [facility] point of view. Full report to follow.
[2018-08-19] MEDS ORDERED: POTASSIUM CHLORIDE 20 MEQ/15 ML UDCUP PO ONE (23:59)
[2018-08-20] MEDS: OXYCODONE-ACETAMINOPHEN 5-325 MG TABLET PO PRN ×4 (00:07→21:31)
[2018-08-20 05:56] LABS: ABSOLUTE EOSINOPHILS # (AUTO) 0.3 10^3/uL (0.0-0.6); ABSOLUTE LYMPHOCYTES (AUTO) 2.4 10^3/uL (0.5-4.7); ABSOLUTE MONOCYTES (AUTO) 0.5 10^3/uL (0.1-1.4); BASOPHILS % (AUTO) 0.9 % (0-2); EOSINOPHILS % (AUTO) 5.5 % (0-6); HEMATOCRIT 31.1 % (36.0-47.0); HEMOGLOBIN 10.2 g/dL (12.0-15.5); MEAN CORPUSCULAR HEMOGLOBIN 30.3 pg (27.0-33.4); MEAN CORPUSCULAR HGB CONC 32.9 g/dL (32.0-36.0); MEAN CORPUSCULAR VOLUME 92 fl (80-97); MONOCYTES % (AUTO) 10.3 % (3-13); PLATELET COUNT 302 10^3/uL (150-450); RED BLOOD COUNT 3.38 10^6/uL (3.72-5.28); RED CELL DISTRIBUTION WIDTH 15.7 % (11.5-14.0); SEGMENTED NEUTROPHILS % (AUTO) 38.3 % (42-78); TOTAL CELLS COUNTED % (AUTO) 100 %; WHITE BLOOD COUNT 5.2 10^3/uL (4.0-10.5)
[2018-08-20] MEDS: LANSOPRAZOLE 30 MG TAB.RAP.DR PO SCH (06:15)
[2018-08-20 06:30] LABS: ALANINE AMINOTRANSFERASE 21 U/L (9-52); ALBUMIN 2.7 g/dL (3.5-5.0); ALKALINE PHOSPHATASE 50 U/L (38-126); ANION GAP 5 (5-19); ASPARTATE AMINO TRANSFERASE 18 U/L (14-36); BILIRUBIN,DIRECT 0.1 mg/dL (0.0-0.4); BILIRUBIN,TOTAL 0.3 mg/dL (0.2-1.3); BLOOD UREA NITROGEN 10 mg/dL (7-20); CALCIUM 9.5 mg/dL (8.4-10.2); CARBON DIOXIDE 28 mmol/L (22-30); CHLORIDE 108 mmol/L (98-107); GLUCOSE 100 mg/dL (75-110); SODIUM 141.3 mmol/L (137-145); TOTAL PROTEIN 5.6 g/dL (6.3-8.2)
[2018-08-20] MEDS: DRONABINOL 2.5 MG CAPSULE PO SCH ×2 (08:47→17:28)
--- NOTE | 2018-08-20 09:39 | RADIOLOGY REPORT (SQ) ---
EXAM DESCRIPTION: CHEST SINGLE VIEW COMPLETED DATE/TIME: 08/20/2018 9:16 am REASON FOR STUDY: ptx COMPARISON: Chest films 08/19/2018, 08/18/2018, 08/17/2018 EXAM PARAMETERS: NUMBER OF VIEWS: One view. TECHNIQUE: Single frontal radiographic view of the chest acquired. RADIATION DOSE: NA LIMITATIONS: None. FINDINGS: LUNGS AND PLEURA: Large bore right chest tube in place. No pneumothorax. Lungs are free of focal infiltrates. Chronic left pleural thickening, stable. No pleural effusions. No left pneumothorax. Small posterior right upper lobe nodule previously biopsied is difficult to visualize by plain film. MEDIASTINUM AND HILAR STRUCTURES: No masses. Contour normal. HEART AND VASCULAR STRUCTURES: Heart normal in size. Normal vasculature. BONES: No acute findings. HARDWARE: Large bore right chest tube unchanged. OTHER: No other significant finding. IMPRESSION: Right chest tube in place. No pneumothorax TECHNICAL DOCUMENTATION: JOB ID: [id number] [employer]- All Rights Reserved Reading location - IP/workstation name: [email or web address]
[2018-08-20] MEDS: ONDANSETRON HCL INJ/PF 4 MG/2 ML SDV IV PRN (10:47)
[2018-08-20] MEDS: FERROUS SULFATE 325 MG TABLET PO SCH (11:50)
[2018-08-20] MEDS: DILTIAZEM HCL 120 MG CAP.SR.24H PO SCH (11:50)
[2018-08-20] MEDS: MAGNESIUM OXIDE 400 MG TABLET PO SCH (11:50)
[2018-08-20] MEDS: FLUTICASONE/UMECLIDIN/VILANTER 100-62.5-25 MCG/DOSE IH SCH (11:51)
[2018-08-20] MEDS: POTASSIUM CHLORIDE 20 MEQ/15 ML UDCUP PO SCH ×2 (11:51→21:31)
[2018-08-20] MEDS: MONTELUKAST SODIUM 10 MG TABLET PO SCH (17:28)
[2018-08-20] MEDS: RIVAROXABAN 10 MG TABLET PO SCH (17:28)
--- NOTE | 2018-08-20 18:08 | PDOC PROGRESS REPORT ---
Subjective Progress Note for:: 08/20/18 Subjective:: Patient reported improvement in her breathing. No chest pain. Chest tube in situ. No fever or chills. Reason For Visit: PNEUMOTHORAX Physical Exam Vital Signs: Temp Pulse Resp BP Pulse Ox 98.2 F 87 20 104/65 96 08/20/18 10:44 08/20/18 14:00 08/20/18 10:44 08/20/18 10:44 08/20/18 10:44 Intake & Output 08/19/18 08/20/18 08/21/18 06:59 06:59 06:59 Intake Total 230 200 Output Total 0 400 Balance 0 230 -200 Weight 53.7 kg 54 kg General appearance: PRESENT: mild distress - supplemental oxygen via nasal c annula in use. Head exam: PRESENT: atraumatic, normocephalic Ear exam: PRESENT: normal external ear exam Mouth exam: PRESENT: moist Respiratory exam: PRESENT: clear to auscultation darinel, decreased breath sounds - at lung bases, other - right sided chest tube in situ Cardiovascular exam: PRESENT: RRR. ABSENT: diastolic murmur, rubs, systolic murmur Vascular exam: ABSENT: pallor GI/Abdominal exam: PRESENT: normal bowel sounds, soft. ABSENT: distended, guarding, mass, organolmegaly, rebound, tenderness Extremities exam: ABSENT: pedal edema Neurological exam: PRESENT: alert, awake, oriented to person, oriented to place, oriented to time, oriented to situation, CN II-XII grossly intact. ABSENT: motor sensory deficit Psychiatric exam: PRESENT: appropriate affect, normal mood. ABSENT: homicidal ideation, suicidal ideation Skin exam: PRESENT: dry, warm Results Laboratory Results: 08/20/18 04:50 08/20/18 04:50 08/20/18 08/20/18 04:50 04:50 WBC 5.2 RBC 3.38 L Hgb 10.2 L Hct 31.1 L MCV 92 MCH 30.3 MCHC 32.9 RDW 15.7 H Plt Count 302 Seg Neutrophils % 38.3 L Lymphocytes % 45.0 Monocytes % 10.3 Eosinophils % 5.5 Basophils % 0.9 Absolute Neutrophils 2.0 Absolute Lymphocytes 2.4 Absolute Monocytes 0.5 Absolute Eosinophils 0.3 Absolute Basophils 0.0 Sodium 141.3 Potassium 4.0 Chloride 108 H Carbon Dioxide 28 Anion Gap 5 BUN 10 Creatinine 0.56 Est GFR ( Amer) > 60 Est GFR (Non-Af Amer) > 60 Glucose 100 Calcium 9.5 Magnesium 1.8 Total Bilirubin 0.3 AST 18 ALT 21 Alkaline Phosphatase 50 Total Protein 5.6 L Albumin 2.7 L 08/18/18 00:35 Clean Catch Midstream Urine Culture - Final 5,000 col/ml 08/17/18 08/17/18 08/18/18 19:30 19:30 01:33 Creatine Kinase 28 L CK-MB (CK-2) < 0.22 < 0.22 Troponin I < 0.012 < 0.012 08/18/18 08/18/18 08/18/18 01:33 07:39 07:39 Creatine Kinase 28 L 25 L CK-MB (CK-2) < 0.22 Troponin I < 0.012 Impressions: Chest X-Ray 08/20/18 06:00 IMPRESSION: Right chest tube in place. No pneumothorax Assessment & Plan - Diagnosis (1) Pneumothorax after biopsy Is this a current diagnosis for this admission?: Yes Plan: Continue current management. Possible removal of chest tube tomorrow. Chest X ray suggested no pneumothorax (2) COPD (chronic obstructive pulmonary disease) Qualifiers: COPD type: unspecified COPD Qualified Code(s): J44.9 - Chronic obstructive pulmonary disease, unspecified Is this a current diagnosis for this admission?: Yes Plan: Continue current medication management (3) Hypertension Qualifiers: Hypertension type: unspecified Qualified Code(s): I10 - Essential (primary) hypertension Is this a current diagnosis for this admission?: Yes Plan: Continue current medication management (4) HLD (hyperlipidemia) Qualifiers: Hyperlipidemia type: unspecified Qualified Code(s): E78.5 - Hyperlipidemia, unspecified Is this a current diagnosis for this admission?: Yes Plan: Continue current medication management - Time Time Spent with patient: 25-34 minutes Medications reviewed and adjusted accordingly: Yes Anticipated discharge: Home with Homehealth Within: within 48 hours - Inpatient Certification Based on my medical assessment, after consideration of the patient's comorbidities, presenting symptoms, or acuity I expect that the services needed warrant INPATIENT care.: Yes I certify that my determination is in accordance with my understanding of Medicare's requirements for reasonable and necessary INPATIENT services [42 CFR 412.3e].: Yes Medical Necessity: Significant Comorbidiites Make Outpatient Treatment Too Risky, Need Close Monitoring Due to Risk of Patient Decompensation, Need For Continuous Telemetry Monitoring, Risk of Complication if Not Cared For in Hospital, Risk of Diagnosis Which Will Require Inpatient Eval/Care/Monitoring Post Hospital Care: D/C Vice President Of 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 I had care plan discussion with patient and she is in agreement regarding possible discharge home in next 48 hours.
--- NOTE | 2018-08-20 23:36 | PDOC PROGRESS REPORT ---
Subjective Progress Note for:: 08/20/18 Subjective:: Patient was seen last night and again this morning. Patient was noted to have a short run of wide complex tachycardia yesterday morning. Potassium was noted to be low. Replacement potassium supplement was ordered. Will recommend checking ignition level. Patient has noted some discomfort on the right side of chest which she claims is from the chest tube. Patient denied any left-sided chest discomfort. Reason For Visit: PNEUMOTHORAX Physical Exam Vital Signs: Temp Pulse Resp BP Pulse Ox 99.3 F 88 18 94/51 L 96 08/20/18 20:11 08/20/18 20:11 08/20/18 20:11 08/20/18 20:11 08/20/18 20:11 Intake & Output 08/19/18 08/20/18 08/21/18 06:59 06:59 06:59 Intake Total 230 200 Output Total 0 400 Balance 0 230 -200 Weight 53.7 kg 54 kg Exam: GEN: NAD, patient alert oriented x3. Appearance and grooming WNL HEENT : Eyes: RON, Ears: No significant abnormalities, Nose: No significant abnormalities. normocephalic atraumatic. Flat midface (-), Receding chin (-) ORAL : Mallampati class IV, narrow arched palate (-) Tonsils: Not enlarged. NECK: no thyromegaly, no masses, trachea is central, JVD is not elevated, carotids 2+ with bruit (-) RESP: lungs clear, no rales, wheezes or rhonchi, nonlabored, accessory muscles of respiration use (-). Right sided chest tube is noted. CV: NL S1 and S2. No significant murmurs noted, no gallop, no extra sounds, no clicks, no rub noted. GI: abd NT to palpation, no masses, bowel sounds present, no guarding or rigidity noted. EXT: no clubbing, (-) cyanosis, edema (-), perpheral pulses diminished (no) MUSC/SKEL: no acute joint swelling noted. Muscle strength is generally intact. NEURO: no significant focal neurological deficits are note, sensation grossly intact, AO x 3 PSYCH: NL mood and affect. judgment and insight noted to be intact. SKIN: (-) rash, (-)Signs of pruritus, (-) other significant abnormality Results Laboratory Results: 08/20/18 04:50 08/20/18 04:50 08/20/18 08/20/18 04:50 04:50 WBC 5.2 RBC 3.38 L Hgb 10.2 L Hct 31.1 L MCV 92 MCH 30.3 MCHC 32.9 RDW 15.7 H Plt Count 302 Seg Neutrophils % 38.3 L Lymphocytes % 45.0 Monocytes % 10.3 Eosinophils % 5.5 Basophils % 0.9 Absolute Neutrophils 2.0 Absolute Lymphocytes 2.4 Absolute Monocytes 0.5 Absolute Eosinophils 0.3 Absolute Basophils 0.0 Sodium 141.3 Potassium 4.0 Chloride 108 H Carbon Dioxide 28 Anion Gap 5 BUN 10 Creatinine 0.56 Est GFR ( Amer) > 60 Est GFR (Non-Af Amer) > 60 Glucose 100 Calcium 9.5 Magnesium 1.8 Total Bilirubin 0.3 AST 18 ALT 21 Alkaline Phosphatase 50 Total Protein 5.6 L Albumin 2.7 L 08/18/18 00:35 Clean Catch Midstream Urine Culture - Final 5,000 col/ml 08/17/18 08/17/18 08/18/18 19:30 19:30 01:33 Creatine Kinase 28 L CK-MB (CK-2) < 0.22 < 0.22 Troponin I < 0.012 < 0.012 08/18/18 08/18/18 08/18/18 01:33 07:39 07:39 Creatine Kinase 28 L 25 L CK-MB (CK-2) < 0.22 Troponin I < 0.012 Impressions: Chest X-Ray 08/20/18 06:00 IMPRESSION: Right chest tube in place. No pneumothorax Assessment & Plan - Diagnosis (1) Wide-complex tachycardia Is this a current diagnosis for this admission?: Yes (2) COPD (chronic obstructive pulmonary disease) Qualifiers: COPD type: unspecified COPD Qualified Code(s): J44.9 - Chronic obstructive pulmonary disease, unspecified Is this a current diagnosis for this admission?: Yes (3) Hypertension Qualifiers: Hypertension type: unspecified Qualified Code(s): I10 - Essential (primary) hypertension Is this a current diagnosis for this admission?: Yes (4) Pneumothorax after biopsy Is this a current diagnosis for this admission?: Yes (5) Hypokalemia Is this a current diagnosis for this admission?: Yes - Notes Notes: Wide complex tachycardia: possibly related to stress, pain, hypokalaemia and other metabolic reasons. Patient has a history of this in the past with COPD exacerbation. Over the last 24-hour is, rhythm has stabilised. Potassium replace ment ordered. At this point recommend continuing with current therapy for underlying medical issues. Will check office record, if a recent echo has not been performed well consider ordering that. Patient to report any further problems. Patient does wish to change her room and wants to go to a private room, this request was related to the nurse. - Time Time with patient: Greater than 35 minutes
[2018-08-21] MEDS: OXYCODONE-ACETAMINOPHEN 5-325 MG TABLET PO PRN ×3 (02:23→12:48)
[2018-08-21] MEDS: LANSOPRAZOLE 30 MG TAB.RAP.DR PO SCH (05:25)
[2018-08-21] MEDS: DRONABINOL 2.5 MG CAPSULE PO SCH ×2 (07:30→15:59)
--- NOTE | 2018-08-21 08:54 | RADIOLOGY REPORT (SQ) ---
EXAM DESCRIPTION: CHEST SINGLE VIEW COMPLETED DATE/TIME: 08/21/2018 8:42 am REASON FOR STUDY: f/u ptx COMPARISON: Multiple chest films since 08/16/2018 EXAM PARAMETERS: NUMBER OF VIEWS: One view. TECHNIQUE: Single frontal radiographic view of the chest acquired. RADIATION DOSE: NA LIMITATIONS: None. FINDINGS: LUNGS AND PLEURA: Right large bore chest tube side hole is lateral to the right ribs. No right lateral chest wall air. No right-sided pneumothorax. Previously biopsied posterior right upper lobe nodule is difficult to visualize by plain film. Old pleuroparenchymal scarring along the left lateral chest. MEDIASTINUM AND HILAR STRUCTURES: No masses. Contour normal. HEART AND VASCULAR STRUCTURES: Heart normal in size. Normal vasculature. BONES: No acute findings. HARDWARE: Right large bore chest tube in place, no pneumothorax. No chest wall air. Side port of th e chest tube is outside the thorax lateral to the right ribs. OTHER: No other significant finding. IMPRESSION: No right sided pneumothorax TECHNICAL DOCUMENTATION: JOB ID: [id number] [employer]- All Rights Reserved Reading location - IP/workstation name: [email or web address]
[2018-08-21] MEDS: DILTIAZEM HCL 120 MG CAP.SR.24H PO SCH (09:13)
--- NOTE | 2018-08-21 09:13 | PDOC PROGRESS REPORT ---
Subjective Progress Note for:: 08/21/18 Subjective:: No complaints. Reason For Visit: PNEUMOTHORAX Physical Exam Vital Signs: Temp Pulse Resp BP Pulse Ox 98.7 F 79 20 97/67 L 93 08/21/18 08:00 08/21/18 08:00 08/21/18 08:00 08/21/18 08:00 08/21/18 08:00 Intake & Output 08/20/18 08/21/18 08/22/18 06:59 06:59 06:59 Intake Total 230 200 Output Total 425 Balance 230 -225 Weight 54 kg 54 kg Respiratory exam: PRESENT: clear to auscultation darinel - Chest tube in place on the right side. No air leak. Cardiovascular exam: PRESENT: RRR Results Laboratory Results: 08/20/18 04:50 08/20/18 04:50 08/18/18 00:35 Clean Catch Midstream Urine Culture - Final 5,000 col/ml 08/17/18 08/17/18 08/18/18 19:30 19:30 01:33 Creatine Kinase 28 L CK-MB (CK-2) < 0.22 < 0.22 Troponin I < 0.012 < 0.012 08/18/18 08/18/18 08/18/18 01:33 07:39 07:39 Creatine Kinase 28 L 25 L CK-MB (CK-2) < 0.22 Troponin I < 0.012 Impressions: Chest X-Ray 08/21/18 00:00 IMPRESSION: No right sided pneumothorax Assessment & Plan - Diagnosis (1) Pneumothorax after biopsy Is this a current diagnosis for this admission?: Yes Plan: Status post chest tube placement. Chest x-ray today demonstrates no pneumoth orax. There is no air leak. Will place on waterseal. If patient does well we will plan to DC her chest tube tomorrow.
[2018-08-21] MEDS: FLUTICASONE/UMECLIDIN/VILANTER 100-62.5-25 MCG/DOSE IH SCH (09:14)
[2018-08-21] MEDS: POTASSIUM CHLORIDE 20 MEQ/15 ML UDCUP PO SCH ×2 (09:14→21:58)
[2018-08-21] MEDS: MAGNESIUM OXIDE 400 MG TABLET PO SCH (09:14)
[2018-08-21] MEDS: FERROUS SULFATE 325 MG TABLET PO SCH (09:14)
[2018-08-21] MEDS: KETOROLAC TROMETHAMINE INJ/PF 30 MG/1 ML SDV IV PRN (14:55)
[2018-08-21] MEDS: RIVAROXABAN 10 MG TABLET PO SCH (15:59)
[2018-08-21] MEDS: ONDANSETRON HCL INJ/PF 4 MG/2 ML SDV IV PRN (16:32)
[2018-08-21] MEDS: MONTELUKAST SODIUM 10 MG TABLET PO SCH (18:41)
--- NOTE | 2018-08-21 19:05 | PDOC PROGRESS REPORT ---
Subjective Progress Note for:: 08/21/18 Subjective:: Patient reported persistent nausea but no vomiting. No abdominal pain. No constipation. No chest pain. Remain on supplemental oxygen via nasal cannula. Right chest tube remain in situ. Reason For Visit: PNEUMOTHORAX Physical Exam Vital Signs: Temp Pulse Resp BP Pulse Ox 98.7 F 84 14 96/60 L 97 08/21/18 15:06 08/21/18 16:59 08/21/18 16:59 08/21/18 15:06 08/21/18 16:59 Intake & Output 08/20/18 08/21/18 08/22/18 06:59 06:59 06:59 Intake Total 230 200 Output Total 425 Balance 230 -225 Weight 54 kg 54 kg Physical Exam: General appearance: PRESENT: mild distress - supplemental oxygen via nasal cannu la in use. Head exam: PRESENT: atraumatic, normocephalic Ear exam: PRESENT: normal external ear exam Mouth exam: PRESENT: moist Respiratory exam: PRESENT: clear to auscultation darinel, decreased breath sounds - at lung bases, other - right sided chest tube in situ Cardiovascular exam: PRESENT: RRR. ABSENT: diastolic murmur, rubs, systolic murmur Vascular exam: ABSENT: pallor GI/Abdominal exam: PRESENT: normal bowel sounds, soft. ABSENT: distended, guarding, mass, organomegaly, rebound, tenderness Extremities exam: ABSENT: pedal edema Neurological exam: PRESENT: alert, awake, oriented to person, oriented to place, oriented to time, oriented to situation, CN II-XII grossly intact. ABSENT: capri r sensory deficit Psychiatric exam: PRESENT: appropriate affect, normal mood. ABSENT: homicidal ideation, suicidal ideation Skin exam: PRESENT: dry, warm Results Laboratory Results: 08/20/18 04:50 08/20/18 04:50 08/17/18 08/17/18 08/18/18 19:30 19:30 01:33 Creatine Kinase 28 L CK-MB (CK-2) < 0.22 < 0.22 Troponin I < 0.012 < 0.012 08/18/18 08/18/18 08/18/18 01:33 07:39 07:39 Creatine Kinase 28 L 25 L CK-MB (CK-2) < 0.22 Troponin I < 0.012 Impressions: Chest X-Ray 08/21/18 00:00 IMPRESSION: No right sided pneumothorax Assessment & Plan - Diagnosis (1) Pneumothorax after biopsy Is this a current diagnosis for this admission?: Yes (2) COPD (chronic obstructive pulmonary disease) Qualifiers: COPD type: unspecified COPD Qualified Code(s): J44.9 - Chronic obstructive pulmonary disease, unspecified Is this a current diagnosis for this admission?: Yes (3) Hypertension Qualifiers: Hypertension type: unspecified Qualified Code(s): I10 - Essential (primary) hypertension Is this a current diagnosis for this admission?: Yes (4) HLD (hyperlipidemia) Qualifiers: Hyperlipidemia type: unspecified Qualified Code(s): E78.5 - Hyperlipidemia, unspecified Is this a current diagnosis for this admission?: Yes - Time Time Spent with patient: 25-34 minutes Medications reviewed and adjusted accordingly: Yes Anticipated discharge: Home, Home with Homehealth Within: within 48 hours - Inpatient Certification Based on my medical assessment, after consideration of the patient's comorbidities, presenting symptoms, or acuity I expect that the services needed warrant INPATIENT care.: Yes I certify that my determination is in accordance with my understanding of Medicare's requirements for reasonable and necessary INPATIENT services [42 CFR 412.3e].: Yes Medical Necessity: Need Close Monitoring Due to Risk of Patient Decompensation, Need For IV Fluids, Need For Continuous Telemetry Monitoring, Need for Pain Control, Risk of Complication if Not Cared For in Hospital, Risk of Diagnosis Which Will Require Inpatient Eval/Care/Monitoring Post Hospital Care: D/C Promotional Model 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 Chest tube removal postpone to tomorrow. Awaiting echocardiogram findings. Preliminary reading LVEF about 60%.
--- NOTE | 2018-08-21 20:27 | XCELERA REPORT ---
[address] [address] Transthoracic Echocardiogram Report Name: ARIELLA JUAREZ Age: 53 yrs Gender: Female : 1965 Patient Status: Inpatient Patient Location: [address] [place], [place] [id number] Study Date: 08/21/2018 11:10 AM Height: 62 in Weight: 119 lb BSA: 1.5 m2 Procedure: A complete two-dimensional transthoracic echocardiogram was performed (2D, M-mode, spectral and color flow Doppler). The study was technically adequate with some images being suboptimal in quality. Reason For Study: wide complex tachycardia Ordering Physician: OTILIO HOFFMAN Performed By: Lynn Mcfarland Interpretation Summary The left ventricular ejection fraction is normal. There is borderline concentric left ventricular hypertrophy. The left ventricle is grossly normal size. Doppler measurements suggest normal left ventricular diastolic function Wall motion cannot be accurately commented on, but no definite regional wall motion abnormalities noted. Borderline right ventricular enlargement. The right ventricular systolic function is normal. The left atrial size is normal. The right atrium is normal. There is a trace to mild amount of mitral regurgitation There is no mitral valve stenosis. No aortic regurgitation is present. There is no aortic valve stenosis There is a trace or physiologic amount of tricuspid regurgitation Tricuspid regurgitation jet envelope not well defined to measure RV systolic pressure accurately. The aortic root is not well visualized but is probably normal size. The inferior vena cava appeared normal and decreased > 50% with respiration (RAP 5-10 mmHg) There is no pericardial effusion. MMode/2D Measurements & Calculations RVDd: 3.0 cm LVIDd: 4.2 cm FS: 28.7 % Ao root diam: 2.7 cm IVSd: 0.55 cm LVIDs: 3.0 cm EDV(Teich): Ao root area: 79.8 ml LVPWd: 0.83 cm 5.7 cm2 ESV(Teich): 35.5 ml EF(Teich): 55.6 % EDV(MOD-sp4): SV(MOD-sp4): 69.8 ml 45.9 ml ESV(MOD-sp4): 23.8 ml EF(MOD-sp4): 65.8 % Doppler Measurements & Calculations MV E max cristino: MV dec slope: Ao V2 max: LV V1 max P.9 cm/sec 128.9 cm/sec 3.7 mmHg MV A max cristino: 245.5 cm/sec2 Ao max PG: LV V1 max: 61.2 cm/sec MV dec time: 0.26 sec6.7 mmHg 96.0 cm/sec MV E/A: 1.1 LV dP/dt: 5683 mmHg/s PA V2 max: TR max cristion: 98.1 cm/sec 267.6 cm/sec PA max P.8 mmHg TR max P.8 mmHg Left Ventricle The left ventricle is grossly normal size. There is borderline concentric left ventricular hypertrophy. The left ventricular ejection fraction is normal. Doppler measurements suggest normal left ventricular diastolic function. Wall motion cannot be accurately commented on, but no definite regional wall motion abnormalities noted. Right Ventricle Borderline right ventricular enlargement. There is normal right ventricular wall thickness. The right ventricular systolic function is normal. Atria The right atrium is normal. The left atrial size is normal. Interarterial septum not well visualized and not well dopplered. Cannot comment on ASD/PFO presence. Mitral Valve The mitral valve is grossly normal. There is no mitral valve stenosis. There is a trace to mild amount of mitral regurgitation. Aortic Valve The aortic valve is grossly normal. There is no aortic valve stenosis. No aortic regurgitation is present. Tricuspid Valve The tricuspid valve is not well visualized, but is grossly normal. There is no tricuspid stenosis. There is a trace or physiologic amount of tricuspid regurgitation. Tricuspid regurgitation jet envelope not well defined to measure RV systolic pressure accurately. Pulmonic Valve The pulmonic valve is not well visualized. Great Vessels The aortic root is not well visualized but is probably normal size. The inferior vena cava appeared normal and decreased > 50% with respiration (RAP 5-10 mmHg). Effusions There is no pericardial effusion. : OTILIO HOFFMAN > Otilio Hoffman
--- NOTE | 2018-08-21 23:30 | PDOC PROGRESS REPORT ---
Subjective Progress Note for:: 08/21/18 Subjective:: Patient was seen in the evening.. Patient was noted to have no recurrence a short run of wide complex tachycardia earlier this admission. Potassium was noted to be corrected. Patient has noted some discomfort on the right side of chest which she claims is from the chest tube. Patient denied any left-sided chest discomfort. Surgeons plans to remove chest tube tomorrow. Reason For Visit: PNEUMOTHORAX Physical Exam Vital Signs: Temp Pulse Resp BP Pulse Ox 98.7 F 84 14 96/60 L 97 08/21/18 15:06 08/21/18 16:59 08/21/18 16:59 08/21/18 15:06 08/21/18 16:59 Intake & Output 08/20/18 08/21/18 08/22/18 06:59 06:59 06:59 Intake Total 230 200 Output Total 425 Balance 230 -225 Weight 54 kg 54 kg Exam: GENERAL: well-nourished and in no acute distress. Alert and oriented x3 HEAD: Atraumatic, normocephalic. EYES: RON, sclera anicteric, conjunctiva are normal. ENT: Moist mucous membranes. No oral ulcerations or bleeding gums noted. No obvious ear, nose or throat abnormalities noted. NECK: supple without lymphadenopathy. Trachea is central. No cervical or axillary lymphadenopathy noted. Carotids are 2+, JVD WNL LUNGS: Breath sounds clear bilaterally. No wheezes rales or rhonchi noted. No significant dullness noted on percussion. Chest tube noted right side chest. CHEST: Palpation of the chest wall shows no significant chest wall tenderness. HEART: [place] CHECK VIEWER, No PSH, 1/6 ORIANA aortic area, 1/6 randle systolic murmur mitral area, no rubs, no gallops. ABDOMEN: Soft, no significant tenderness appreciated, normoactive bowel sounds. No guarding, no rebound. No rigidity noted . No masses appreciated. EXTREMITIES: Pedal pulses are 1-2+, no calf tenderness noted. No clubbing or cyanosis. negative pedal edema noted NEUROLOGICAL: Focused neurological exam showed no significant neurologic deficit. Normal speech, no focal weakness appreciated. PSYCH: Normal mood, normal affect. Judgment and insight within normal limits. SKIN: No significant ecchymosis, skin is noted to be warm. MUSCULOSKELETAL EXAM: No significant acute joint swelling noted. Results Laboratory Results: 08/20/18 04:50 08/20/18 04:50 08/17/18 08/17/18 08/18/18 19:30 19:30 01:33 Creatine Kinase 28 L CK-MB (CK-2) < 0.22 < 0.22 Troponin I < 0.012 < 0.012 08/18/18 08/18/18 08/18/18 01:33 07:39 07:39 Creatine Kinase 28 L 25 L CK-MB (CK-2) < 0.22 Troponin I < 0.012 EKG Comments: Telemetry shows sinus rhythm, no significant tachycardic or bradyarrhythmia noted. Impressions: Chest X-Ray 08/21/18 00:00 IMPRESSION: No right sided pneumothorax Assessment & Plan - Diagnosis (1) Wide-complex tachycardia Is this a current diagnosis for this admission?: Yes (2) COPD (chronic obstructive pulmonary disease) Qualifiers: COPD type: unspecified COPD Qualified Code(s): J44.9 - Chronic obstructive pulmonary disease, unspecified Is this a current diagnosis for this admission?: Yes (3) Hypertension Qualifiers: Hypertension type: unspecified Qualified Code(s): I10 - Essential (primary) hypertension Is this a current diagnosis for this admission?: Yes (4) Pneumothorax after biopsy Is this a current diagnosis for this admission?: Yes (5) Hypokalemia Is this a current diagnosis for this admission?: Yes - Notes Notes: Patient generally much improved. 2D echo shows normal LVEF. RV is borderline enlarged possibly related to underlying COPD. No valvular abnormalities noted. No intervention needed for wide-complex tachycardia except for beta-hiral therapy. Patient can follow-up with me in the office. Patient otherwise improved. Pneumothorax has improved. - Time Time with patient: 15-25 minutes
[2018-08-22] MEDS: OXYCODONE-ACETAMINOPHEN 5-325 MG TABLET PO PRN ×2 (03:29→19:52)
[2018-08-22] MEDS: LANSOPRAZOLE 30 MG TAB.RAP.DR PO SCH (05:55)
[2018-08-22] MEDS: DRONABINOL 2.5 MG CAPSULE PO SCH ×2 (08:58→17:50)
--- NOTE | 2018-08-22 09:13 | RADIOLOGY REPORT (SQ) ---
EXAM DESCRIPTION: CHEST SINGLE VIEW COMPLETED DATE/TIME: 08/22/2018 8:51 am REASON FOR STUDY: f/u ptx COMPARISON: 08/21/2018 EXAM PARAMETERS: NUMBER OF VIEWS: One view. TECHNIQUE: Single frontal radiographic view of the chest acquired. RADIATION DOSE: NA LIMITATIONS: None. FINDINGS: LUNGS AND PLEURA: Emphysematous change with no appreciable pneumothorax. No new airspace disease. No significant pleural effusion. Blunting of the bilateral costophrenic angles, likely sca rring. Known pulmonary nodule not well evaluated. MEDIASTINUM AND HILAR STRUCTURES: No masses. Contour normal. HEART AND VASCULAR STRUCTURES: Normal heart size. BONES: No acute abnormality. Left shoulder arthroplasty. Surgical clips overlie left axilla. Right sided large bore chest tube with side hole outside the thoracic cavity, unchanged. HARDWARE: None in the chest. OTHER: No other significant finding. IMPRESSION: No appreciable pneumothorax. Large-bore right-sided chest tube with the proximal side port marker outside of the thoracic cavity, unchanged. TECHNICAL DOCUMENTATION: JOB ID: [id number] [employer]- All Rights Reserved Reading location - IP/workstation name: [email or web address]
--- NOTE | 2018-08-22 11:03 | RADIOLOGY REPORT (SQ) ---
EXAM DESCRIPTION: CHEST SINGLE VIEW COMPLETED DATE/TIME: 08/22/2018 10:10 am REASON FOR STUDY: chest tube removed COMPARISON: 08/22/2018 EXAM PARAMETERS: NUMBER OF VIEWS: One view. TECHNIQUE: Single frontal radiographic view of the chest acquired. RADIATION DOSE: NA LIMITATIONS: None. FINDINGS: LUNGS AND PLEURA: No pneumothorax. Very small pleural effusions versus pleural reaction, stable findings. Findings of COPD. No acute pulmonary consolidation. MEDIASTINUM AND HILAR STRUCTURES: No masses. Contour normal. HEART AND VASCULAR STRUCTURES: Heart normal in size. Normal vasculature. BONES: No acute findings. HARDWARE: Interval removal of right sided chest tube since the previous study dated 08/22/2018. None in the chest. OTHER: Left shoulder arthroplasty, unchanged finding. Surgical metallic clips overlying the left ax illa. IMPRESSION: 1. Interval removal of right sided chest tube since the prior study performed earlier d ated 08/22/2018. 2. Otherwise, stable appearance to the chest. TECHNICAL DOCUMENTATION: JOB ID: [id number] [employer]- All Rights Reserved Reading location - IP/workstation name: [email or web address]
[2018-08-22] MEDS: DILTIAZEM HCL 120 MG CAP.SR.24H PO SCH (11:34)
[2018-08-22] MEDS: POTASSIUM CHLORIDE 20 MEQ/15 ML UDCUP PO SCH ×2 (11:34→21:12)
[2018-08-22] MEDS: MAGNESIUM OXIDE 400 MG TABLET PO SCH (11:35)
[2018-08-22] MEDS: FERROUS SULFATE 325 MG TABLET PO SCH (11:35)
[2018-08-22] MEDS: FLUTICASONE/UMECLIDIN/VILANTER 100-62.5-25 MCG/DOSE IH SCH (11:36)
--- NOTE | 2018-08-22 12:19 | PDOC PROGRESS REPORT ---
Subjective Progress Note for:: 08/22/18 Reason For Visit: PNEUMOTHORAX Physical Exam Vital Signs: Temp Pulse Resp BP Pulse Ox 98.6 F 83 16 102/67 95 08/22/18 10:54 08/22/18 10:54 08/22/18 10:54 08/22/18 10:54 08/22/18 10:54 Intake & Output 08/21/18 08/22/18 08/23/18 06:59 06:59 06:59 Intake Total 200 444 Output Total 425 Balance -225 444 Weight 54 kg 55.6 kg Exam: lungs clear Results Laboratory Results: 08/20/18 04:50 08/20/18 04:50 08/17/18 08/17/18 08/18/18 19:30 19:30 01:33 Creatine Kinase 28 L CK-MB (CK-2) < 0.22 < 0.22 Troponin I < 0.012 < 0.012 08/18/18 08/18/18 08/18/18 01:33 07:39 07:39 Creatine Kinase 28 L 25 L CK-MB (CK-2) < 0.22 Troponin I < 0.012 Impressions: Chest X-Ray 08/22/18 00:00 IMPRESSION: 1. Interval removal of right sided chest tube since the prior study performed earlier dated 08/22/2018. 2. Otherwise, stable appearance to the chest. Assessment & Plan - Diagnosis (1) Pneumothorax after biopsy Is this a current diagnosis for this admission?: Yes - Time Time Spent with patient: 15-24 minutes - Plan Summary Plan Summary: Right chest tube pulled out. CXRay showed no recurrence of pneumothorax Instructed patient to remove dressing after 3 days. May leave dressings out and may shower.
[2018-08-22] MEDS: RIVAROXABAN 10 MG TABLET PO SCH (17:48)
[2018-08-22] MEDS: MONTELUKAST SODIUM 10 MG TABLET PO SCH (17:48)
--- NOTE | 2018-08-22 18:06 | PDOC PROGRESS REPORT ---
Subjective Progress Note for:: 08/22/18 Subjective:: Patient reported persistent nausea but no vomiting. No abdominal pain. No constipation. No chest pain. Remain on supplemental oxygen via nasal cannula. Post removal of right chest tube. Reason For Visit: PNEUMOTHORAX Physical Exam Vital Signs: Temp Pulse Resp BP Pulse Ox 98.6 F 87 18 110/54 L 96 08/22/18 10:54 08/22/18 15:15 08/22/18 15:15 08/22/18 15:15 08/22/18 15:15 Intake & Output 08/21/18 08/22/18 08/23/18 06:59 06:59 06:59 Intake Total 200 444 Output Total 425 Balance -225 444 Weight 54 kg 55.6 kg Physical Exam: General appearance: PRESENT: mild distress - supplemental oxygen via nasal ca nnula in use. Head exam: PRESENT: atraumatic, normocephalic Ear exam: PRESENT: normal external ear exam Mouth exam: PRESENT: moist Respiratory exam: PRESENT: clear to auscultation darinel, decreased breath sounds - at lung bases, other - right sided chest tube in situ Cardiovascular exam: PRESENT: RRR. ABSENT: diastolic murmur, rubs, systolic murmur Vascular exam: ABSENT: pallor GI/Abdominal exam: PRESENT: normal bowel sounds, soft. ABSENT: distended, guarding, mass, organomegaly, rebound, tenderness Extremities exam: ABSENT: pedal edema Neurological exam: PRESENT: alert, awake, oriented to person, oriented to place, oriented to time, oriented to situation, CN II-XII grossly intact. ABSENT: m otor sensory deficit Psychiatric exam: PRESENT: appropriate affect, normal mood. ABSENT: homicidal ideation, suicidal ideation Skin exam: PRESENT: dry, warm Results Laboratory Results: 08/20/18 04:50 08/20/18 04:50 08/17/18 08/17/18 08/18/18 19:30 19:30 01:33 Creatine Kinase 28 L CK-MB (CK-2) < 0.22 < 0.22 Troponin I < 0.012 < 0.012 08/18/18 08/18/18 08/18/18 01:33 07:39 07:39 Creatine Kinase 28 L 25 L CK-MB (CK-2) < 0.22 Troponin I < 0.012 Impressions: Chest X-Ray 08/22/18 00:00 IMPRESSION: 1. Interval removal of right sided chest tube since the prior study performed earlier dated 08/22/2018. 2. Otherwise, stable appearance to the chest. Assessment & Plan - Diagnosis (1) Pneumothorax after biopsy Is this a current diagnosis for this admission?: Yes (2) COPD (chronic obstructive pulmonary disease) Qualifiers: COPD type: unspecified COPD Qualified Code(s): J44.9 - Chronic obstructive pulmonary disease, unspecified Is this a current diagnosis for this admission?: Yes (3) Hypertension Qualifiers: Hypertension type: unspecified Qualified Code(s): I10 - Essential (primary) hypertension Is this a current diagnosis for this admission?: Yes (4) HLD (hyperlipidemia) Qualifiers: Hyperlipidemia type: unspecified Qualified Code(s): E78.5 - Hyperlipidemia, unspecified Is this a current diagnosis for this admission?: Yes - Time Time Spent with patient: 25-34 minutes Medications reviewed and adjusted accordingly: Yes Anticipated discharge: Home Within: within 24 hours - Inpatient Certification Based on my medical assessment, after consideration of the patient's comorbidities, presenting symptoms, or acuity I expect that the services needed warrant INPATIENT care.: Yes I certify that my determination is in accordance with my understanding of Medicare's requirements for reasonable and necessary INPATIENT services [42 CFR 412.3e].: Yes Medical Necessity: Significant Comorbidiites Make Outpatient Treatment Too Risky, Need Close Monitoring Due to Risk of Patient Decompensation, Need For Continuous Telemetry Monitoring, Need for Nebulizer Therapy and Monitoring of Response, Risk of Complication if Not Cared For in Hospital, Risk of Diagnosis Which Will Require Inpatient Eval/Care/Monitoring Post Hospital Care: D/C Consumer Insight Manager 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 Encouraged amnbulation on the main. Possible discharge home tomorrow. Patient s in agreement with care plan.
--- NOTE | 2018-08-22 21:04 | PDOC PROGRESS REPORT ---
Subjective Progress Note for:: 08/22/18 Subjective:: post right chest tube removal Reason For Visit: PNEUMOTHORAX Physical Exam Vital Signs: Temp Pulse Resp BP Pulse Ox 99.0 F 91 20 96/55 L 98 08/22/18 20:25 08/22/18 20:25 08/22/18 20:25 08/22/18 20:25 08/22/18 20:25 Intake & Output 08/21/18 08/22/18 08/23/18 06:59 06:59 06:59 Intake Total 200 444 Output Total 425 Balance -225 444 Weight 54 kg 55.6 kg Results Laboratory Results: 08/20/18 04:50 08/20/18 04:50 08/17/18 14:45 Blood Blood Culture - Final NO GROWTH IN 5 DAYS 08/17/18 19:30 Blood Blood Culture - Final NO GROWTH IN 5 DAYS 08/17/18 08/17/18 08/18/18 19:30 19:30 01:33 Creatine Kinase 28 L CK-MB (CK-2) < 0.22 < 0.22 Troponin I < 0.012 < 0.012 08/18/18 08/18/18 08/18/18 01:33 07:39 07:39 Creatine Kinase 28 L 25 L CK-MB (CK-2) < 0.22 Troponin I < 0.012 Impressions: Chest X-Ray 08/22/18 00:00 IMPRESSION: 1. Interval removal of right sided chest tube since the prior study performed earlier dated 08/22/2018. 2. Otherwise, stable appearance to the chest. Assessment & Plan - Diagnosis (1) Pneumothorax after biopsy Is this a current diagnosis for this admission?: Yes - Time Time Spent with patient: Less than 15 minutes - Plan Summary Plan Summary: CXRay post right chest tube removal showed pneumothorax resolved. Will sign off.
[2018-08-23] MEDS: LANSOPRAZOLE 30 MG TAB.RAP.DR PO SCH (06:43)
[2018-08-23] MEDS: DRONABINOL 2.5 MG CAPSULE PO SCH (08:18)
[2018-08-23 08:21] VITALS: BP 98/61
--- NOTE | 2018-08-23 08:22 | PDOC DISCHARGE SUMMARY ---
General - Admit/Disc Date/PCP Admission Date/Primary Care Provider: 08/17/18 13:30 LUKASZ SANAA Discharge Date: 08/23/18 - Discharge Diagnosis (1) Pneumothorax after biopsy Is this a current diagnosis for this admission?: Yes (2) COPD (chronic obstructive pulmonary disease) Is this a current diagnosis for this admission?: Yes (3) Hypertension Is this a current diagnosis for this admission?: Yes (4) HLD (hyperlipidemia) Is this a current diagnosis for this admission?: Yes - Additional Information Resuscitation Status: Do Not Resuscitate Discharge Diet: Cardiac Discharge Activity: Activity As Tolerated Prescriptions: Oxycodone HCl/Acetaminophen [Percocet 5-325 mg Tablet] 1 tab PO Q4HP PRN #20 tablet PRN Reason: Home Medications: Albuterol Sulfate [Proair HFA Inhalation Aerosol 8.5 gm MDI] 2 puff IH Q4HP PRN 06/15/18 Diltiazem HCl [Cartia Xt] 120 mg PO DAILY 06/15/18 Ferrous Sulfate [Feosol 325 mg Tablet] 325 mg PO DAILY 06/15/18 Lansoprazole 30 mg PO Q6AM 06/15/18 Montelukast Sodium [Singulair 10 mg Tablet] 10 mg PO QPM 06/15/18 Rivaroxaban [Xarelto] 20 mg PO WSUPPER 06/15/18 Fluticasone/Umeclidin/Vilanter [Trelegy 100-62.5-25 Mcg Ellipta 14 Dose/Dpi] 1 inh IH DAILY #1 inhaler 06/21/18 Albuterol Sulfate [Ventolin 0.083% Neb 2.5 mg/3 mL Ampul] 1 vial NEB RTQ6HP PRN 08/13/18 Dronabinol [Marinol 2.5 mg Capsule] 5 mg PO BIDACBS 08/13/18 Magnesium Oxide [Mag-Ox 400 mg Tablet] 400 mg PO DAILY 08/13/18 Oxycodone HCl/Acetaminophen [Percocet 5-325 mg Tablet] 1 tab PO Q4HP PRN #20 tablet 08/23/18 History of Present Illness History of Present Illness: ARIELLA JUAREZ is a 53 year old female, she was recently admitted in this hospital on 08/15/2018 when she presented with symptoms and signs suggestive of transient ischemic attack, on that admission she was started on Xarelto. She has a history of breast cancer, bilateral mastectomy ,she has solitary pulmonary nodule that was biopsy on 08/15/2018 this was complicated with a pneumothorax, she had a pigtail catheter inserted on 08/15/2018, she came to the emergency room for evaluation of progressive shortness of breath chest x-ray was done it demonstrated reaccumulation of the pneumothorax she was then referred to the ER and a chest tube was inserted, the emergency room physician is requesting inpatient care for this patient. I saw the patient on the floor she complained of shortness of breath and chest pain but the main symptom is chest pain Hospital Course Hospital Course: Patient was admitted for right post procedure, biopsy, pneumothorax. She had chest tube placement by surgicalist and treated thereafter conservatively. Her chest tube was removed on 08/22/2018. She has been at her usual baseline thereafter. Patient has history of bilateral breast cancer s/p bilateral mastectomy she will follow up with Dr. Santiago, her medical oncologist, roula jackson result of her lung nodule biopsy. she will follow up in the office as instructed upon discharge. Physical Exam Vital Signs: Temp Pulse Resp BP Pulse Ox 99.3 F 76 20 97/56 L 96 08/22/18 23:20 08/23/18 07:00 08/22/18 23:20 08/22/18 23:20 08/23/18 04:13 Intake & Output 08/22/18 08/23/18 08/24/18 06:59 06:59 06:59 Intake Total 444 Balance 444 Weight 55.6 kg 54.6 kg Physical Exam: General appearance: PRESENT: mild distress - supplemental oxygen via nasal jose armando anup in use. Head exam: PRESENT: atraumatic, normocephalic Ear exam: PRESENT: normal external ear exam Mouth exam: PRESENT: moist Respiratory exam: PRESENT: clear to auscultation darinel, decreased breath sounds - at lung bases, other - right sided chest tube in situ Cardiovascular exam: PRESENT: RRR. ABSENT: diastolic murmur, rubs, systolic murmur Vascular exam: ABSENT: pallor GI/Abdominal exam: PRESENT: normal bowel sounds, soft. ABSENT: distended, guarding, mass, organomegaly, rebound, tenderness Extremities exam: ABSENT: pedal edema Neurological exam: PRESENT: alert, awake, oriented to person, oriented to place, oriented to time, oriented to situation, CN II-XII grossly intact. ABSENT: mot or sensory deficit Psychiatric exam: PRESENT: appropriate affect, normal mood. ABSENT: homicidal ideation, suicidal ideation Skin exam: PRESENT: dry, warm Results Laboratory Results: 08/20/18 04:50 08/20/18 04:50 08/17/18 14:45 Blood Blood Culture - Final NO GROWTH IN 5 DAYS 08/17/18 19:30 Blood Blood Culture - Final NO GROWTH IN 5 DAYS 08/17/18 08/17/18 08/18/18 19:30 19:30 01:33 Creatine Kinase 28 L CK-MB (CK-2) < 0.22 < 0.22 Troponin I < 0.012 < 0.012 08/18/18 08/18/18 08/18/18 01:33 07:39 07:39 Creatine Kinase 28 L 25 L CK-MB (CK-2) < 0.22 Troponin I < 0.012 Impressions: Chest X-Ray 08/22/18 00:00 IMPRESSION: 1. Interval removal of right sided chest tube since the prior study performed earlier dated 08/22/2018. 2. Otherwise, stable appearance to the chest. Qualifiers - * PATIENT BEING DISCHARGED WITH ANY OF THE FOLLOWING DIAGNOSIS: No Plan Discharge Plan: D/C home today. Follow up in the office as instructed upon discharge. Follow up with Dr. Santiago as previously scheduled.
--- NOTE | 2018-08-23 22:21 | EKG REPORT ---
SEVERITY:- ABNORMAL ECG - SINUS RHYTHM ST ELEVATION SUGGESTS PERICARDITIS : Confirmed by: Otilio Lamb 23-Aug-2018 22:20:30
== END 2018-08-23 09:00 | disposition home or self-care (01) | DRG 201 ==
LOC: ER 12:27 → EH 13:30 → 3W 16:10 → ICU 08-19 14:40 → 3W 08-19 17:26 → 3N 08-20 00:38
PROVIDERS: ADMIT Internal Medicine; ATTEND Internal Medicine Geriatric Medicine
PROC: 0W9930Z Drainage of Right Pleural Cavity with Drainage Device, Percutaneous Approach (ICD-10-PCS; principal; 2018-08-19)
PROC: 0WP933Z Removal of Infusion Device from Right Pleural Cavity, Percutaneous Approach (ICD-10-PCS; 2018-08-19)
DX: J95.811 Postprocedural pneumothorax (principal); Y84.8 Other medical procedures as the cause of abnormal reaction of the patient, or of later complication, without mention of misadventure at the time of the procedure; R00.0 Tachycardia, unspecified; E87.6 Hypokalemia; J44.9 Chronic obstructive pulmonary disease, unspecified; I50.9 Heart failure, unspecified; E78.5 Hyperlipidemia, unspecified; I11.0 Hypertensive heart disease with heart failure; K21.9 Gastro-esophageal reflux disease without esophagitis; C50.919 Malignant neoplasm of unspecified site of unspecified female breast; Z79.01 Long term (current) use of anticoagulants; Z79.51 Long term (current) use of inhaled steroids; Z79.899 Other long term (current) drug therapy; Z87.891 Personal history of nicotine dependence; Z86.73 Personal history of transient ischemic attack (TIA), and cerebral infarction without residual deficits; Z90.13 Acquired absence of bilateral breasts and nipples
CPT/HCPCS: 36415; 70551; 71045; 71046; 71260; 77012; 80048; 80053; 80061; 80076; 80307; 81001; 82140; 82150; 82550; 82553; 82803; 83036; 83690; 83735; 84100; 84439; 84443; 84484; 85025; 85610; 85730; 87040; 87086; 88305; 93005; 93010; 93306; 93880; 94640; 94799; 99283; A9270-GY; J1885; J2250; J2405; J3010; J3490

== ENCOUNTER → 2018-08-17 | Outpatient (CLI) | payer MEDICARE, MEDICAID ==
--- NOTE | 2018-08-17 11:23 | RADIOLOGY REPORT (SQ) ---
EXAM DESCRIPTION: CHEST 2 VIEWS COMPLETED DATE/TIME: 08/17/2018 10:49 am REASON FOR STUDY: PNEUMOTHORAX (J93.9) COMPARISON: Two-view chest 08/16/2018 CT chest 08/16/2018 EXAM PARAMETERS: NUMBER OF VIEWS: two views TECHNIQUE: Digital Frontal and Lateral radiographic views of the chest acquired. RADIATION DOSE: NA LIMITATIONS: none FINDINGS: LUNGS AND PLEURA: Re-accumulation of a 20% right pneumothorax compared to chest film 2018. Patient is asymptomatic. The right pigtail catheter was gently aspirated, about 400 mL of air was successfully aspirated from the catheter. A new Heimlich valve was attached to the into the cat heter. The patient will be observed for another hour to see if the right pneumothorax re- accumulate s. Lungs are well inflated. No focal infiltrates. Trace right pleural fluid. No left pneumothorax. MEDIASTINUM AND HILAR STRUCTURES: No masses or contour abnormalities. HEART AND VASCULAR STRUCTURES: Heart normal size. No evidence for failure. BONES: No acute findings. HARDWARE: Right pleural space pigtail catheter OTHER: No other significant finding. IMPRESSION: Re-accumulation of of 20% pneumothorax compared to yesterday's film. The right pigtail catheter was aspirated, a new Heimlich valve was replaced. Patient will be observe d for 1 hour to see if the right pneumothorax re- accumulates. TECHNICAL DOCUMENTATION: JOB ID: [id number] [employer]- All Rights Reserved Reading location - IP/workstation name: [email or web address]
--- NOTE | 2018-08-17 12:24 | RADIOLOGY REPORT (SQ) ---
EXAM DESCRIPTION: CHEST 2 VIEWS COMPLETED DATE/TIME: 08/17/2018 12:08 pm REASON FOR STUDY: PNEUMOTHORAX COMPARISON: Chest films 08/17/2018, 08/16/2018, 08/15/2018 EXAM PARAMETERS: NUMBER OF VIEWS: two views TECHNIQUE: Digital Frontal and Lateral radiographic views of the chest acquired. RADIATION DOSE: NA LIMITATIONS: none FINDINGS: LUNGS AND PLEURA: Re-accumulation of a small apical pneumothorax after the chest tube was clamped and Heimlich valve replaced. This indicates an air leak, the patient will be admitted to the surgical service for management of the right chest tube on a Pleur-Evac with suction. Findings disc ussed with Dr. Hernandez and Dr. Guerrero. No focal infiltrates. No pleural effusion. No left pneumothorax. MEDIASTINUM AND HILAR STRUCTURES: No masses or contour abnormalities. HEART AND VASCULAR STRUCTURES: Heart normal size. No evidence for failure. BONES: No acute findings. HARDWARE: None in the chest. OTHER: No other significant finding. IMPRESSION: Re-accumulation of a small right apical pneumothorax after the chest tube was clamped. This implies an air leak. Patient will be admitted to the surgical is service for management of the right pleural space pigtail catheter on a Pleur-Evac. TECHNICAL DOCUMENTATION: JOB ID: [id number] [employer]- All Rights Reserved Reading location - IP/workstation name: [email or web address]
== END ==
LOC: RAD 10:15
PROVIDERS: ATTEND Nuclear Medicine
DX: J93.9 Pneumothorax, unspecified (principal)
CPT/HCPCS: 71046

== ENCOUNTER 2018-08-29 12:47 | Emergency (ER) | payer MEDICAID, MEDICARE ==
--- NOTE | 2018-08-29 13:31 | RADIOLOGY REPORT (SQ) ---
EXAM DESCRIPTION: CHEST SINGLE VIEW COMPLETED DATE/TIME: 08/29/2018 1:00 pm REASON FOR STUDY: STROKE ALERT COMPARISON: AP chest 08/22/2018 CT chest 08/16/2018 EXAM PARAMETERS: NUMBER OF VIEWS: One view. TECHNIQUE: Single frontal radiographic view of the chest acquired. RADIATION DOSE: NA LIMITATIONS: None. FINDINGS: LUNGS AND PLEURA: Lungs are hyperinflated and hyperlucent from obstructive disease. Small nodule previously biopsied on 08/16/2018 in the posteromedial right lung apex is difficult to visuali ze by plain film. No acute infiltrates. No pleural effusion. No pneumothorax. MEDIASTINUM AND HILAR STRUCTURES: No masses. Contour normal. HEART AND VASCULAR STRUCTURES: Heart normal in size. Normal vasculature. BONES: No acute findings. HARDWARE: Post bilateral mastectomy. Left axillary surgical clips. Left humeral head replacement OTHER: No other significant finding. IMPRESSION: No acute findings TECHNICAL DOCUMENTATION: JOB ID: [id number] [employer]- All Rights Reserved Reading location - IP/workstation name: [email or web address]
--- NOTE | 2018-08-29 13:33 | RADIOLOGY REPORT (SQ) ---
EXAM DESCRIPTION: CT HEAD WITHOUT COMPLETED DATE/TIME: 08/29/2018 1:00 pm REASON FOR STUDY: Stroke Alert; Slurred Speech and Left Sided Weakness COMPARISON: MR 08/14/2018 CT 08/13/2018 TECHNIQUE: Axial images acquired through the brain without intravenous contrast. Images reviewed wi th bone, brain and subdural windows. Additional sagittal and coronal reconstructions were generated. Images stored on PACS. All CT scanners at this facility use dose modulation, iterative reconstruction, and/or weight based d osing when appropriate to reduce radiation dose to as low as reasonably achievable (ALARA). [facility]: Dose Right [facility]: CareDose [facility]: Dose Right [facility]: Teradose 4D [facility]: Elevate Digital RADIATION DOSE: mGy. LIMITATIONS: None. FINDINGS: VENTRICLES: Normal size and contour. CEREBRUM: No masses. No hemorrhage. No midline shift. No evidence for acute infarction. Normal gra y/white matter differentiation. No areas of low density in the white matter. CEREBELLUM: No masses. No hemorrhage. No alteration of density. No evidence for acute infarction. EXTRAAXIAL SPACES: No fluid collections. No masses. ORBITS AND GLOBE: No intra- or extraconal masses. Normal contour of globe without masses. CALVARIUM: No fracture. PARANASAL SINUSES: No fluid or mucosal thickening. SOFT TISSUES: No mass or hematoma. OTHER: No other significant finding. IMPRESSION: NORMAL BRAIN CT WITHOUT CONTRAST. EVIDENCE OF ACUTE STROKE: NO. COMMENT: Findings were discussed with the ordering physician at 1327 hours on this date. Quality ID # [id number]: Final reports with documentation of one or more dose reduction techniques (e.g., Au tomated exposure control, adjustment of the mA and/or kV according to patient size, use of iterative reconstruction technique) TECHNICAL DOCUMENTATION: JOB ID: [id number] [employer]- All Rights Reserved Reading location - IP/workstation name: [email or web address]
[2018-08-29 13:51] LABS: ABSOLUTE BASOPHILS # (AUTO) 0.1 10^3/uL (0.0-0.2); ABSOLUTE EOSINOPHILS # (AUTO) 0.2 10^3/uL (0.0-0.6); ABSOLUTE LYMPHOCYTES (AUTO) 2.8 10^3/uL (0.5-4.7); ABSOLUTE MONOCYTES (AUTO) 0.5 10^3/uL (0.1-1.4); ABSOLUTE NEUT (AUTO) 2.4 10^3/uL (1.7-8.2); BASOPHILS % (AUTO) 1.4 % (0-2); EOSINOPHILS % (AUTO) 2.9 % (0-6); HEMATOCRIT 35.9 % (36.0-47.0); MEAN CORPUSCULAR HEMOGLOBIN 30.8 pg (27.0-33.4); MEAN CORPUSCULAR HGB CONC 33.5 g/dL (32.0-36.0); MEAN CORPUSCULAR VOLUME 92 fl (80-97); MONOCYTES % (AUTO) 8.6 % (3-13); PLATELET COUNT 538 10^3/uL (150-450); SEGMENTED NEUTROPHILS % (AUTO) 40.1 % (42-78); TOTAL CELLS COUNTED % (AUTO) 100 %
[2018-08-29 13:56] LABS: INTERNATIONAL RATION (INR) 1.36
[2018-08-29 13:57] LABS: PARTIAL THROMBOPLASTIN TIME 30.7 SEC (23.5-35.8)
[2018-08-29 14:00] LABS: PROTHROMBIN TIME 17.5 SEC (11.4-15.4)
[2018-08-29 15:17] LABS: ALANINE AMINOTRANSFERASE 23 U/L (9-52); ALBUMIN 3.9 g/dL (3.5-5.0); ALKALINE PHOSPHATASE 64 U/L (38-126); ANION GAP 12 (5-19); ASPARTATE AMINO TRANSFERASE 28 U/L (14-36); BILIRUBIN,DIRECT 0.3 mg/dL (0.0-0.4); BILIRUBIN,TOTAL 0.6 mg/dL (0.2-1.3); BLOOD UREA NITROGEN 5 mg/dL (7-20); CALCIUM 10.1 mg/dL (8.4-10.2); CARBON DIOXIDE 21 mmol/L (22-30); CHLORIDE 110 mmol/L (98-107); CREATINE KINASE 35 U/L (30-135); GLUCOSE 78 mg/dL (75-110); POTASSIUM 3.7 mmol/L (3.6-5.0); SODIUM 143.1 mmol/L (137-145); TOTAL PROTEIN 7.4 g/dL (6.3-8.2)
[2018-08-29 15:33] LABS: CREATINE KINASE MB < 0.22 ng/mL (<4.55); TROPONIN I < 0.012 ng/mL
--- NOTE | 2018-08-29 16:59 | RADIOLOGY REPORT (SQ) ---
EXAM DESCRIPTION: MRI HEAD WITHOUT COMPLETED DATE/TIME: 08/29/2018 4:47 pm REASON FOR STUDY: ? CVA, left facial droop, dysarthria, LUE weak COMPARISON: MRI brain 08/22/2013, 08/14/2018 TECHNIQUE: Multiplanar imaging includes non-contrasted T1, T2, FLAIR, and diffusion with ADC map seq uences. Images stored on PACS. LIMITATIONS: None. FINDINGS: ANATOMY: No developmental anomalies. Normal vascular flow voids. Pituitary fossa normal. CSF SPACES: Normal in size and contour. No hemorrhage. CEREBRUM: No MR evidence of acute ischemic change, acute intracranial hemorrhage, mass effect, or mid line shift. Few small foci of increased FLAIR/ T2 signal in the deep periventricular white matter, unchanged from prior studies likely reflecting minimal small vessel disease. POSTERIOR FOSSA: No signal alteration. No hemorrhage. No edema, masses or mass effect. Internal anand tory canals, cerebello-pontine angles, mastoids normal. DIFFUSION IMAGING: Negative for acute or sub-acute infarction. ORBITS: No masses. Globes normal. PARANASAL SINUSES: No fluid levels. Mucosa normal. OTHER: No other significant finding. IMPRESSION: Minimal stable chronic small vessel ischemic change. No acute findings. EVIDENCE OF ACUTE STROKE: NO. TECHNICAL DOCUMENTATION: JOB ID: [id number] [email or web address]- All Rights Reserved Reading location - IP/workstation name: [email or web address]
--- NOTE | 2018-08-29 18:38 | ER Document Report ---
ED General - General Chief Complaint: S/S of Possible Stroke Stated Complaint: POSSIBLE STROKE Time Seen by Provider: 08/29/18 13:08 Primary Care Provider: LUKASZ ORNELAS MD [Primary Care Provider] - Follow up as needed TRAVEL OUTSIDE OF THE [place] IN LAST 30 DAYS: No - HPI Notes: Patient presents to the emergency department for evaluation. She was called as a stroke alert. Evidently she was last seen normal at 1210. This was approximately 15 minutes prior to her arrival. On arrival I did evaluate the patient. She had left-sided facial droop, mild dysarthria, and very mild left upper extremity weakness. She was sent to CT scan. On further questioning the patient admitted that she had similar symptoms a few weeks ago. She was admitted to the hospital by Dr. Ornelas. She had a workup and was started on Xarelto per the patient. She had been stable neurologically since then. She denies any visual changes. She denies any head injuries. She states she has been taking her medications as prescribed. - Related Data Allergies/Adverse Reactions: prednisone [Prednisone] Adverse Reaction (Intermediate, Verified 08/29/18 13:32) Past Medical History - General Information source: Patient - Social History Smoking Status: Former Smoker Family History: Hypertension Patient has suicidal ideation: No Patient has homicidal ideation: No - Past Medical History Cardiac Medical History: Reports: Hx Congestive Heart Failure, Hx Hypercholesterolemia Denies: Hx Coronary Artery Disease, Hx Heart Attack, Hx Hypertension Pulmonary Medical History: Reports: Hx Asthma, Hx Bronchitis, Hx COPD, Hx Pneumonia Denies: Hx Respiratory Failure, Hx Sleep Apnea, Hx Tuberculosis Neurological Medical History: Reports: Hx Cerebrovascular Accident - WEAKNESS ON LEFT SIDE. Denies: Hx Seizures Endocrine Medical History: Renal/ Medical History: Reports: Hx Ovarian Cysts. Denies: Hx Peritoneal Dialysis Malignancy Medical History: Reports: Hx Breast Cancer GI Medical History: Reports: Hx Gastroesophageal Reflux Disease, Hx Hiatal Hernia Musculoskeletal Medical History: Denies Hx Arthritis, Denies Hx Multiple Sclerosis Psychiatric Medical History: Denies: Hx Dementia, Hx Depression Infectious Medical History: Past Surgical History: Reports: Hx Mastectomy - bilat 2010, Hx Orthopedic Surgery - left shoulder replacement 09/10. Denies: Hx Hysterectomy, Hx Pacemaker - Immunizations Immunizations up to date: Yes Hx Diphtheria, Pertussis, Tetanus Vaccination: No Hx Pneumococcal Vaccination: 06/26/11 Review of Systems - Review of Systems Constitutional: No symptoms reported EENT: No symptoms reported Cardiovascular: No symptoms reported Respiratory: No symptoms reported Gastrointestinal: No symptoms reported Female Genitourinary: No symptoms reported Musculoskeletal: No symptoms reported Hematologic/Lymphatic: No symptoms reported Neurological/Psychological: See HPI Physical Exam - Vital signs Vitals: Resp 25 H 08/29/18 13:00 Notes: Vital signs reviewed as charted. Mildly tachycardic on arrival otherwise unremarkable. - Notes Notes: Vital signs reviewed, please refer to chart. Patient is normocephalic, atraumatic. Pupils equal round, reactive to light. Neck is supple without meningismus. Heart is regular rate and rhythm. Lungs are clear to auscultation bilaterally. Abdomen is soft, nontender, normoactive bowel sounds throughout. Extremities without cyanosis, clubbing, edema. Peripheral pulses are equal. Skin is warm and dry. Patient is awake, alert, unit x3. Initial exam reveals left-sided facial droop with asymmetry of the nasolabial fold. She has mild dysarthria. Remainder of cranial nerves II through XII are intact. Strength is plus 5 out of 5 right upper and bilateral lower extremities. Left upper extremity yields minus 5 out of 5 strength. Reflexes symmetrical. Intact [id number], rapid alternating movements, heel to rosales. Course - Re-evaluation Re-evalutation: 08/29/18 18:38 She presents to the emergency department for evaluation. At the time of my initial evaluation, the patient did have findings consistent with a potential CVA. She had a CT scan performed and I was contacted by radiology, notified of it being negative for any acute bleeding. I went back into reevaluate the patient. 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 Multiple times throughout the course of her stay, however, the patient developed paresthesias and then return of all of her neurological deficits. Occasionally with this she did have a mild flapping of bilateral hands. These episodes would last anywhere from 45 seconds to a few minutes. They would then resolve. I spoke to Dr. Ornelas regarding this patient. He did mention that she has some carotid stenosis on her scan, but nothing critical. This was in fact on the ipsilateral side, which would not explain her symptoms. I then spoke with neurology PA at [facility]. I spoke with Dr. Henry, neurologist, as well. They did recommend repeat MRI. I reviewed her MRI from August 15 which was unremarkable. Her MRI today was unremarkable. The patient continues to have waxing and waning symptoms. I do not have a clear etiology for this. My concern is that it may be in fact seizure activity. The patient was placed on seizure precautions. I spoke with neurology who recommended transfer to see the patient in consult. I spoke with Dr. Batista of the medicine service. They will accept the patient to a bed. Accepting attending physician is Dr. Amato. No further interventions recommended at this time. Patient maintained here in stable condition, awaiting transfer. - Vital Signs Vital signs: Temp Pulse Resp BP Pulse Ox 98.7 F 104 H 18 122/90 H 98 08/29/18 13:31 08/29/18 16:15 08/29/18 16:15 08/29/18 16:15 08/29/18 16:15 - Laboratory Result Diagrams: 08/29/18 13:14 08/29/18 14:54 Laboratory results interpreted by me: 08/29/18 08/29/18 08/29/18 13:14 13:42 14:54 Hct 35.9 L RDW 15.0 H Plt Count 538 H Seg Neutrophils % 40.1 L Lymphocytes % 47.0 H PT 17.5 H Chloride 110 H Carbon Dioxide 21 L BUN 5 L - EKG Interpretation by Me Additional EKG results interpreted by me: 08/29/18 18:38 Sinus mechanism with a rate of 88 bpm. Short MO interval. No acute ST changes concerning for ischemia or infarction. Normal axis. Discharge - Discharge Clinical Impression: Facial droop, Dysarthria, TIA versus seizure Disposition: [facility], [facility] Referrals: LUKASZ ORNELAS MD [Primary Care Provider] - Follow up as needed
--- NOTE | 2018-08-29 19:18 | EKG REPORT ---
SEVERITY:- BORDERLINE ECG - SINUS RHYTHM SHORT MN INTERVAL, ACCELERATED AV CONDUCTION BORDERLINE T ABNORMALITIES, ANT-LAT LEADS : Confirmed by: Roseann Nayak MD 29-Aug-2018 19:17:32
[2018-08-30 01:57] VITALS: BP 107/73
== END 2018-08-30 02:35 | disposition short-term general hospital (02) ==
LOC: ER 12:47
DX: R29.810 Facial weakness (principal); R47.1 Dysarthria and anarthria; R53.1 Weakness; R20.2 Paresthesia of skin; I65.29 Occlusion and stenosis of unspecified carotid artery; J44.9 Chronic obstructive pulmonary disease, unspecified; R00.0 Tachycardia, unspecified; Z79.01 Long term (current) use of anticoagulants; Z87.891 Personal history of nicotine dependence; Z86.73 Personal history of transient ischemic attack (TIA), and cerebral infarction without residual deficits
CPT/HCPCS: 36415; 70450; 70551; 71045; 80053; 82550; 82553; 84484; 85025; 85610; 85730; 93005; 93010; 99285

== ENCOUNTER → 2019-01-18 | Outpatient (CLI) | payer MEDICAID, MEDICARE ==
--- NOTE | 2019-01-18 14:13 | RADIOLOGY REPORT (SQ) ---
EXAM DESCRIPTION: CT CHEST WITHOUT COMPLETED DATE/TIME: 01/18/2019 1:52 pm REASON FOR STUDY: R91.1 SOLITARY PULMONARY NODULE R91.1 SOLITARY PULMONARY NODULE COMPARISON: 08/16/2018 TECHNIQUE: CT scan performed of the chest without intravenous contrast. Images reviewed with lung, soft tissue and bone windows. Reconstructed coronal and sagittal MPR images reviewed. All images st ored on PACS. All CT scanners at this facility use dose modulation, iterative reconstruction, and/or weight based d osing when appropriate to reduce radiation dose to as low as reasonably achievable (ALARA). [facility]: Dose Right [facility]: CareDose [facility]: Dose Right [facility]: Teradose 4D [facility]: [employer] RADIATION DOSE: CT Rad equipment meets quality standard of care and radiation dose reduction techniq ues were employed. CTDIvol: 2.9 mGy. DLP: 118 mGy-cm. mGy. LIMITATIONS: No technical limitations. FINDINGS: LUNGS AND PLEURA: There is a stable spiculated nodule in the right apex. This measures ju st under 10 mm in greatest diameter. It has a bilobed appearance. Mild bilateral emphysematous rolle ges. No new nodules. No consolidation or effusions. No pneumothorax. HILAR AND MEDIASTINAL STRUCTURES: No identified masses or abnormal nodes. No obvious aneurysm. HEART AND VASCULAR STRUCTURES: No aneurysm. No pericardial effusion. UPPER ABDOMEN: No significant findings. Limited exam. THYROID AND OTHER SOFT TISSUES: No masses. No adenopathy. BONES: No significant finding. HARDWARE: None in the chest. OTHER: No other significant findings. IMPRESSION: Stable right upper lobe spiculated nodule just under 1 cm in greatest diameter. Emphyse matous changes. TECHNICAL DOCUMENTATION: JOB ID: [id number] Quality ID # [id number]: Final reports with documentation of one or more dose reduction techniques (e.g., Au tomated exposure control, adjustment of the mA and/or kV according to patient size, use of iterative reconstruction technique) 2010 [employer]- All Rights Reserved Reading location - IP/workstation name: [email or web address]
== END ==
LOC: RAD 13:15
PROVIDERS: ATTEND Internal Medicine Critical Care Medicine
DX: R91.1 Solitary pulmonary nodule (principal); R91.8 Other nonspecific abnormal finding of lung field; J44.9 Chronic obstructive pulmonary disease, unspecified
CPT/HCPCS: 71250

== ENCOUNTER 2019-02-05 00:56 | Inpatient (IN) | payer MEDICARE ==
[2019-02-05] MEDS ORDERED: IPRATROPIUM/ALBUTEROL 0.5-2.5 MG/3 ML AMPUL NEB ONE (01:49)
[2019-02-05] MEDS ORDERED: ALBUTEROL SULFATE 0.083% NEB 2.5 MG/3 ML AMPUL NEB ONE ×3 (01:49→04:01)
--- NOTE | 2019-02-05 01:53 | ER Document Report ---
ED General - General Chief Complaint: Shortness Of Breath Stated Complaint: TROUBLE BREATHING Time Seen by Provider: 02/05/19 01:38 Primary Care Provider: LUKASZ ORNELAS MD [Primary Care Provider] - Follow up as needed TRAVEL OUTSIDE OF THE [place] IN LAST 30 DAYS: No - HPI Notes: 53-year-old female with a stated history of COPD, still occasionally smokes, presents with difficulty breathing wheezing. Gradual onset of last 2 days, states that it attributable to the "heat outside". Mild cough, nonproductive. Moderate intensity. No associated chest pain. No other modifying factors, no other associated symptoms, no other provocative or palliative factors. Using her inhaler at home without success. - Related Data Allergies/Adverse Reactions: prednisone [Prednisone] Adverse Reaction (Intermediate, Verified 08/29/18 13:32) Past Medical History - Social History Smoking Status: Current Some Day Smoker Family History: Hypertension Patient has suicidal ideation: No Patient has homicidal ideation: No - Past Medical History Cardiac Medical History: Reports: Hx Congestive Heart Failure, Hx Hypercholesterolemia Denies: Hx Coronary Artery Disease, Hx Heart Attack, Hx Hypertension Pulmonary Medical History: Reports: Hx Asthma, Hx Bronchitis, Hx COPD, Hx Pneumonia Denies: Hx Respiratory Failure, Hx Sleep Apnea, Hx Tuberculosis Neurological Medical History: Reports: Hx Cerebrovascular Accident - WEAKNESS ON LEFT SIDE. Denies: Hx Seizures Endocrine Medical History: Renal/ Medical History: Reports: Hx Ovarian Cysts. Denies: Hx Peritoneal Dialysis Malignancy Medical History: Reports: Hx Breast Cancer GI Medical History: Reports: Hx Gastroesophageal Reflux Disease, Hx Hiatal Hernia Musculoskeletal Medical History: Denies Hx Arthritis, Denies Hx Multiple Sclerosis, Denies Hx Systemic Lupus Erythematosus Psychiatric Medical History: Denies: Hx Dementia, Hx Depression Infectious Medical History: Past Surgical History: Reports: Hx Mastectomy - bilat 2010, Hx Orthopedic Surgery - left shoulder replacement 09/10. Denies: Hx Hysterectomy, Hx Pacemaker - Immunizations Immunizations up to date: Yes Hx Diphtheria, Pertussis, Tetanus Vaccination: No Hx Pneumococcal Vaccination: 06/26/11 Review of Systems - Review of Systems Notes: Review of systems as in the history of present illness, otherwise negative x 10 systems. Physical Exam - Vital signs Vitals: Temp Pulse Resp BP Pulse Ox 98.2 F 116 H 28 H 134/76 H 99 02/05/19 00:59 02/05/19 00:59 02/05/19 00:59 02/05/19 00:59 02/05/19 00:59 - Notes Notes: General: Well developed . HEENT: Normocephalic, atraumatic. Pupils equal round reactive to light. No JVD. Chest: No trauma. Respiratory: Diminished breath sounds with end expiratory wheezing Cardiac: Regular rhythm. No murmurs or gallops. Abdomen: Soft, benign. Nondistended. Nontender. Back: No asymmetry or gross abnormality. Motor: Grossly normal power and tone. Neurologic: Alert, nonfocal. Cranial nerves II-12 are intact. Sensation intact. Vascular: Well perfused. Normal peripheral pulses. Skin: No petechiae or purpura. Course - Re-evaluation Re-evalutation: 02/05/19 01:53 53-year-old female likely COPD exacerbation, will need to rule out underlying pneumonia as well. Plan proceed with bronchodilators, IV steroids, labs, x-ray, reassess. Doubt ACS 02/05/19 03:45 Labs reviewed. CBC unremarkable, chemistries unremarkable. Chest x-ray shows hyperinflation but no evidence of acute infiltrate. Patient had modest improvement but continues to have increased work of breathing and significant wheezing. She will be admitted to the hospital for further evaluation and management. - Vital Signs Vital signs: Temp Pulse Resp BP Pulse Ox 98.2 F 116 H 20 119/76 100 02/05/19 00:59 02/05/19 00:59 02/05/19 03:30 02/05/19 03:30 02/05/19 03:30 - Laboratory Result Diagrams: 02/05/19 02:13 02/05/19 02:45 Laboratory results interpreted by me: 02/05/19 02/05/19 02:13 02:45 MCV 98 H RDW 15.3 H Lymphocytes % 46.5 H Chloride 110 H - EKG Interpretation by Tx EKG shows normal: Sinus rhythm, Intervals, QRS Complexes Rate: Tachycardia When compared to previous EKG there are: No significant change Discharge - Discharge Clinical Impression: COPD exacerbation Condition: Serious Disposition: ADMITTED OBSERVATION Admitting Provider: Celsa Unit Admitted: [facility] Referrals: LUKASZ ORNELAS MD [Primary Care Provider] - Follow up as needed
[2019-02-05 02:26] LABS: ABSOLUTE BASOPHILS # (AUTO) 0.1 10^3/uL (0.0-0.2); ABSOLUTE EOSINOPHILS # (AUTO) 0.1 10^3/uL (0.0-0.6); ABSOLUTE LYMPHOCYTES (AUTO) 3.7 10^3/uL (0.5-4.7); ABSOLUTE MONOCYTES (AUTO) 0.6 10^3/uL (0.1-1.4); ABSOLUTE NEUT (AUTO) 3.4 10^3/uL (1.7-8.2); BASOPHILS % (AUTO) 1.4 % (0-2); EOSINOPHILS % (AUTO) 1.6 % (0-6); HEMOGLOBIN 12.1 g/dL (12.0-15.5); LYMPHOCYTES % (AUTO) 46.5 % (13-45); MEAN CORPUSCULAR HEMOGLOBIN 32.2 pg (27.0-33.4); MEAN CORPUSCULAR HGB CONC 32.8 g/dL (32.0-36.0); MEAN CORPUSCULAR VOLUME 98 fl (80-97); MONOCYTES % (AUTO) 7.2 % (3-13); PLATELET COUNT 341 10^3/uL (150-450); RED BLOOD COUNT 3.76 10^6/uL (3.72-5.28); RED CELL DISTRIBUTION WIDTH 15.3 % (11.5-14.0); SEGMENTED NEUTROPHILS % (AUTO) 43.3 % (42-78); TOTAL CELLS COUNTED % (AUTO) 100 %
--- NOTE | 2019-02-05 03:01 | RADIOLOGY REPORT (SQ) ---
EXAM DESCRIPTION: XR CHEST 1 VIEW COMPLETED DATE/TME: 02/05/2019 01:46 CLINICAL HISTORY: 53 years, Female, COPD COMPARISON: 08/29/2018, CT dated 01/18/2019 NUMBER OF VIEWS: One TECHNIQUE: AP view of the chest LIMITATIONS: None. FINDINGS: The lungs are hyperinflated with no focal consolidation identified. The right upper lobe nodule is better appreciated on the prior CT scan. There is mild blunting of the left costophrenic angle, likely due to pleural thickening or a small effusion, similar to the prior. The heart is normal in size. There is no pneumothorax. There are changes of a left shoulder arthroplasty. Surgical clips are noted along the left axillary region. IMPRESSION: Emphysematous appearing lungs. No acute cardiopulmonary abnormality. copyright 2010 [employer]- All Rights Reserved
[2019-02-05 03:32] LABS: ANION GAP 9 (5-19); BLOOD UREA NITROGEN 10 mg/dL (7-20); CALCIUM 9.7 mg/dL (8.4-10.2); CARBON DIOXIDE 25 mmol/L (22-30); CHLORIDE 110 mmol/L (98-107); GLUCOSE 106 mg/dL (75-110); POTASSIUM 4.5 mmol/L (3.6-5.0)
--- NOTE | 2019-02-05 09:46 | EKG REPORT ---
SEVERITY:- BORDERLINE ECG - SINUS OR ECTOPIC ATRIAL TACHYCARDIA BORDERLINE T ABNORMALITIES, ANT-LAT LEADS : Confirmed by: Otilio Lamb 05-Feb-2019 09:45:57
[2019-02-05] MEDS ORDERED: ENOXAPARIN SODIUM INJ 40 MG/0.4 ML DISP.SYRIN SUBCUT SCH (10:00)
[2019-02-05] MEDS: NORMAL SALINE 1000 ML 1,000 ML IV PRN ×2 (11:15→22:00)
[2019-02-05] MEDS: METHYLPREDNISOLONE INJ 125 MG/2 ML SDV IV SCH ×3 (11:15→21:27)
[2019-02-05] MEDS: PANTOPRAZOLE SODIUM 40 MG TABLET.DR PO SCH (11:16)
[2019-02-05] MEDS ORDERED: IPRATROPIUM BROMIDE 0.06% NASAL SPRAY 15 ML NASL PRN (19:16)
--- NOTE | 2019-02-05 19:16 | PDOC H&P ---
History of Present Illness Admission Date/PCP: 02/05/19 04:26 LUKASZ SANAHaider Patient complains of: Difficulty with breathing History of Present Illness: ARIELLA JUAREZ is a 53 year old female patient known to my practice who presented to the Ed with complaint of progressive shortness 0of breath with minimal productive cough over last 3 days. Patient related her symptom onset to humid weather but admitted to cigarette smoking. She denied any chest pain but reported rapid heart beat and heaviness in her chest. She engaged in self management at home but due to lack of improvement in her breathing ability decided to seek attention at the ED. Her initial evaluation at the ED revealed persistent wheezing and rhonchi despite repeated bronchodilator therapy. Due to persistence of her difficult with breathing and associated tachycardia she was advised hospitalization for further evaluation and management. 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 Past Medical History Cardiac Medical History: Reports: Congestive Heart Failure, Hyperlipidema Denies: Coronary Artery Disease, Myocardial Infarction, Hypertension Pulmonary Medical History: Reports: Asthma, Bronchitis, Chronic Obstructive Pulmonary Disease (COPD), Pneumonia Denies: Respiratory Failure, Sleep Apnea, Tuberculosis Neurological Medical History: Denies: Seizures Endocrine Medical History: Malignancy Medical History: Reports: Breast Cancer GI Medical History: Reports: Gastroesophageal Reflux Disease, Hiatal Hernia Musculoskeltal Medical History: Denies: Arthritis Psychiatric Medical History: Denies: Dementia, Depression Hematology: Denies: Anemia Past Surgical History Past Surgical History: Reports: Mastectomy - bilat 2010, Orthopedic Surgery - left shoulder replacement 09/10 Denies: Hysterectomy, Pacemaker Social History Smoking Status: Current Some Day Smoker Frequency of Alcohol Use: Occasional Hx Recreational Drug Use: No Drugs: None Hx Prescription Drug Abuse: No - Advance Directive Resuscitation Status: Full Code Family History Family History: Hypertension Parental Family History Reviewed: Yes Children Family History Reviewed: Yes Sibling(s) Family History Reviewed.: Yes Medication/Allergy Home Medications: Albuterol Sulfate [Proair Hfa Inhalation Aerosol 8.5 gm Mdi] 2 puff IH QID 02/05/19 Anastrozole [Arimidex] 1 mg PO DAILY 02/05/19 Diltiazem HCl [Diltiazem ER] 60 mg PO Q12 02/05/19 Fexofenadine HCl [Barbara] 180 mg PO DAILY 02/05/19 Fluticasone/Umeclidin/Vilanter [Trelegy 100-62.5-25 Mcg Ellipta 14 Dose/Dpi] 1 each IH DAILY 02/05/19 Ipratropium [employer] [Atrovent 0.06% Nasal [place]] 2 spray NASL QID PRN 02/05/19 Lansoprazole [Prevacid] 30 mg PO DAILY 02/05/19 Linaclotide [Linzess 145 Mcg Capsule] 145 mcg PO DAILY 02/05/19 Magnesium Oxide [Mag-Ox 400 mg Tablet] 400 mg PO DAILY 02/05/19 Megestrol Acetate 400 mg PO DAILY 02/05/19 Montelukast Sodium [Singulair 10 mg Tablet] 10 mg PO DAILY 02/05/19 Multivit-Min/Iron/Folic/Lutein [Centrum Silver Women Tablet] 1 each PO DAILY 02/05/19 Rosuvastatin Calcium [Crestor 10 mg Tablet] 10 mg PO DAILY 02/05/19 Allergies/Adverse Reactions: prednisone [Prednisone] Adverse Reaction (Intermediate, Verified 08/29/18 13:32) Review of Systems Constitutional: PRESENT: fatigue, weakness. ABSENT: chills, fever(s), headache(s) Eyes: ABSENT: visual disturbances Ears: ABSENT: hearing changes Nose, Mouth, and Throat: ABSENT: as per HPI, headache(s), mouth pain, sore throat, vertigo, other Cardiovascular: PRESENT: dyspnea on exertion Respiratory: PRESENT: dyspnea Gastrointestinal: PRESENT: constipation. ABSENT: abdominal pain, diarrhea, hematemesis, hematochezia, nausea, vomiting Genitourinary: ABSENT: dysuria, hematuria Musculoskeletal: ABSENT: joint swelling Integumentary: ABSENT: rash, wounds Neurological: ABSENT: abnormal gait, abnormal speech, confusion, dizziness, focal weakness, syncope Psychiatric: ABSENT: anxiety, depression, homidical ideation, suicidal ideation Hematologic/Lymphatic: ABSENT: easy bleeding, easy bruising, lymphadenopathy Allergic/Immunologic: ABSENT: seasonal rhinorrhea Physical Exam Vital Signs: Temp Pulse Resp BP Pulse Ox 97.8 F 104 H 18 101/55 L 99 02/05/19 07:09 02/05/19 07:09 02/05/19 07:09 02/05/19 07:09 02/05/19 07:09 Intake & Output 02/04/19 02/05/19 02/06/19 06:59 06:59 06:59 Weight 51.3 kg General appearance: PRESENT: mild distress - on suplemental oxygen via nasal cannula at 2L/min Head exam: PRESENT: atraumatic, normocephalic Eye exam: PRESENT: conjunctiva pink, EOMI, PERRLA. ABSENT: scleral icterus Ear exam: PRESENT: normal external ear exam Mouth exam: PRESENT: moist Respiratory exam: PRESENT: decreased breath sounds, rhonchi, wheezes Cardiovascular exam: PRESENT: RRR, tachycardia. ABSENT: diastolic murmur, rubs, systolic murmur Vascular exam: PRESENT: pallor GI/Abdominal exam: PRESENT: normal bowel sounds, soft. ABSENT: distended, guarding, mass, organolmegaly, rebound, tenderness Rectal exam: PRESENT: deferred Extremities exam: ABSENT: pedal edema Musculoskeletal exam: PRESENT: deformity - related to multiple joints involvement with arthritis Neurological exam: PRESENT: alert, awake, oriented to person, oriented to place, oriented to time, oriented to situation, CN II-XII grossly intact, other - minimal left sided paresis, related to old CVA. ABSENT: motor sensory deficit Psychiatric exam: PRESENT: appropriate affect, normal mood. ABSENT: homicidal ideation, suicidal ideation Skin exam: PRESENT: dry, warm, other - bilateral mastectomies Results Laboratory Results: 02/05/19 02:13 02/05/19 02:45 02/05/19 02/05/19 02/05/19 02:13 02:13 02:45 WBC 8.0 RBC 3.76 Hgb 12.1 Hct 37.0 MCV 98 H MCH 32.2 MCHC 32.8 RDW 15.3 H Plt Count 341 Seg Neutrophils % 43.3 Lymphocytes % 46.5 H Monocytes % 7.2 Eosinophils % 1.6 Basophils % 1.4 Absolute Neutrophils 3.4 Absolute Lymphocytes 3.7 Absolute Monocytes 0.6 Absolute Eosinophils 0.1 Absolute Basophils 0.1 Sodium Cancelled 144.0 Potassium Cancelled 4.5 Chloride Cancelled 110 H Carbon Dioxide Cancelled 25 Anion Gap Cancelled 9 BUN Cancelled 10 Creatinine Cancelled 0.89 Est GFR ( Amer) Cancelled > 60 Est GFR (Non-Af Amer) Cancelled > 60 Glucose Cancelled 106 Calcium Cancelled 9.7 Impressions: Chest X-Ray 02/05/19 01:46 IMPRESSION: Emphysematous appearing lungs. No acute cardiopulmonary abnormality. copyright 2010 [employer]- All Rights Reserved Assessment & Plan - Diagnosis (1) Acute exacerbation of COPD with asthma Is this a current diagnosis for this admission?: Yes Plan: See admitting attending physician orders for details about care plan. (2) Cigarette smoker one half pack a day or less Is this a current diagnosis for this admission?: Yes Plan: See admitting attending physician orders for details about care plan. (3) Essential hypertension Is this a current diagnosis for this admission?: Yes Plan: See admitting attending physician orders for details about care plan. (4) HLD (hyperlipidemia) Qualifiers: Hyperlipidemia type: unspecified Qualified Code(s): E78.5 - Hyperlipidemia, unspecified Is this a current diagnosis for this admission?: Yes Plan: See admitting attending physician orders for details about care plan. (5) GERD (gastroesophageal reflux disease) Qualifiers: Esophagitis presence: without esophagitis Qualified Code(s): K21.9 - Gastro-esophageal reflux disease without esophagitis Is this a current diagnosis for this admission?: Yes Plan: See admitting attending physician orders for details about care plan. (6) Constipation by delayed colonic transit Is this a current diagnosis for this admission?: Yes Plan: See admitting attending physician orders for details about care plan. (7) CVA, old, hemiparesis Is this a current diagnosis for this admission?: Yes Plan: See admitting attending physician orders for details about care plan. (8) Status post bilateral mastectomy Is this a current diagnosis for this admission?: Yes Plan: See admitting attending physician orders for details about care plan. - Time Time Spent: 50 to 70 Minutes Smoking Cessation Education: 3 to 10 minutes Medications reviewed and adjusted accordingly: Yes Anticipated discharge: Home with Homehealth Within: Other - Inpatient Certification Based on my medical assessment, after consideration of the patient's comorbidities, presenting symptoms, or acuity I expect that the services needed warrant INPATIENT care.: Yes I certify that my determination is in accordance with my understanding of Medicare's requirements for reasonable and necessary INPATIENT services [42 CFR 412.3e].: Yes Medical Necessity: Significant Comorbidiites Make Outpatient Treatment Too Risky, Need Close Monitoring Due to Risk of Patient Decompensation, Need For IV Fluids, Need For Continuous Telemetry Monitoring, Need for Nebulizer Therapy and Monitoring of Response, Risk of Complication if Not Cared For in Hospital, Risk of Diagnosis Which Will Require Inpatient Eval/Care/Monitoring 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
[2019-02-05] MEDS ORDERED: BISACODYL 10 MG SUPP.RECT PR ONE (19:17)
[2019-02-05] MEDS ORDERED: MAGNESIUM CITRATE 296 ML BOTTLE PO ONE (20:00)
[2019-02-05] MEDS: ATORVASTATIN CALCIUM 20 MG TABLET PO SCH (21:27)
[2019-02-05] MEDS ORDERED: (PENDING PHARMACY ID) (Diltiazem Hcl [Diltiazem 12hr Er] 60 MG) PO SCH (22:00)
[2019-02-06 05:04] LABS: ABSOLUTE MONOCYTES (AUTO) 0.2 10^3/uL (0.1-1.4); ABSOLUTE NEUT (AUTO) 7.6 10^3/uL (1.7-8.2); BASOPHILS % (AUTO) 0.3 % (0-2); HEMATOCRIT 34.8 % (36.0-47.0); HEMOGLOBIN 11.6 g/dL (12.0-15.5); MEAN CORPUSCULAR HGB CONC 33.2 g/dL (32.0-36.0); MEAN CORPUSCULAR VOLUME 97 fl (80-97); MONOCYTES % (AUTO) 2.6 % (3-13); PLATELET COUNT 312 10^3/uL (150-450); RED BLOOD COUNT 3.61 10^6/uL (3.72-5.28); RED CELL DISTRIBUTION WIDTH 14.9 % (11.5-14.0); SEGMENTED NEUTROPHILS % (AUTO) 86.1 % (42-78); TOTAL CELLS COUNTED % (AUTO) 100 %; WHITE BLOOD COUNT 8.8 10^3/uL (4.0-10.5)
[2019-02-06 05:18] LABS: ALBUMIN 3.5 g/dL (3.5-5.0); ALKALINE PHOSPHATASE 43 U/L (38-126); ANION GAP 6 (5-19); ASPARTATE AMINO TRANSFERASE 18 U/L (14-36); BILIRUBIN,DIRECT 0.3 mg/dL (0.0-0.4); BILIRUBIN,TOTAL 0.3 mg/dL (0.2-1.3); BLOOD UREA NITROGEN 11 mg/dL (7-20); CALCIUM 9.5 mg/dL (8.4-10.2); CARBON DIOXIDE 24 mmol/L (22-30); CHLORIDE 111 mmol/L (98-107); CHOLESTEROL 106.19 mg/dL (0-200); GLUCOSE 195 mg/dL (75-110); POTASSIUM 4.4 mmol/L (3.6-5.0); TOTAL PROTEIN 6.4 g/dL (6.3-8.2); TRIGLYCERIDES 38 mg/dL (<150)
[2019-02-06 05:29] LABS: DIRECT LDL 60 mg/dL (<100)
[2019-02-06] MEDS: PANTOPRAZOLE SODIUM 40 MG TABLET.DR PO SCH (06:00)
[2019-02-06] MEDS: METHYLPREDNISOLONE INJ 125 MG/2 ML SDV IV SCH ×3 (06:00→21:44)
[2019-02-06] MEDS: ACETAMINOPHEN 325 MG TABLET PO PRN ×3 (06:58→23:06)
--- NOTE | 2019-02-06 07:06 | PDOC PROGRESS REPORT ---
Subjective Progress Note for:: 02/06/19 Subjective:: Patient reported improvement in her wheezing and difficulty with breathing. No chest pain. No fever or chills. She reported continue constipation with minimal bowel improvement after administration of Mag Citrate. No abdominal pain, nausea, or vomiting. Reason For Visit: EXACERBATED COPD Physical Exam Vital Signs: Temp Pulse Resp BP Pulse Ox 98.7 F 110 H 18 115/68 99 02/06/19 03:37 02/06/19 03:37 02/06/19 03:37 02/06/19 03:37 02/06/19 03:37 Intake & Output 02/04/19 02/05/19 02/06/19 06:59 06:59 06:59 Intake Total 2019 Balance 2019 Weight 51.3 kg 57.2 kg General appearance: PRESENT: mild distress - remainon supplemental oxygen via nasal cannula at 2L/min Head exam: PRESENT: atraumatic, normocephalic Eye exam: PRESENT: conjunctiva pink. ABSENT: scleral icterus Ear exam: PRESENT: normal external ear exam Mouth exam: PRESENT: moist Respiratory exam: PRESENT: decreased breath sounds - at lung bases, rhonchi - minimal intensity with expiration Cardiovascular exam: PRESENT: RRR, +S1, +S2, tachycardia. ABSENT: diastolic murmur, rubs, systolic murmur Vascular exam: ABSENT: pallor GI/Abdominal exam: PRESENT: normal bowel sounds, soft. ABSENT: distended, guarding, mass, organolmegaly, rebound, tenderness Extremities exam: PRESENT: pedal edema - left upper extremity from lymphedema Neurological exam: PRESENT: alert, awake, oriented to person, oriented to place, oriented to time, oriented to situation, CN II-XII grossly intact. ABSENT: mo tor sensory deficit Psychiatric exam: PRESENT: appropriate affect, normal mood. ABSENT: homicidal ideation, suicidal ideation Skin exam: PRESENT: dry, warm Results Laboratory Results: 02/06/19 04:30 02/06/19 04:30 02/06/19 02/06/19 04:30 04:30 WBC 8.8 RBC 3.61 L Hgb 11.6 L Hct 34.8 L MCV 97 MCH 32.0 MCHC 33.2 RDW 14.9 H Plt Count 312 Seg Neutrophils % 86.1 H Lymphocytes % 11.0 L Monocytes % 2.6 L Eosinophils % 0.0 Basophils % 0.3 Absolute Neutrophils 7.6 Absolute Lymphocytes 1.0 Absolute Monocytes 0.2 Absolute Eosinophils 0.0 Absolute Basophils 0.0 Sodium 140.8 Potassium 4.4 Chloride 111 H Carbon Dioxide 24 Anion Gap 6 BUN 11 Creatinine 0.68 Est GFR ( Amer) > 60 Est GFR (Non-Af Amer) > 60 Glucose 195 H Calcium 9.5 Total Bilirubin 0.3 AST 18 Alkaline Phosphatase 43 Total Protein 6.4 Albumin 3.5 Triglycerides 38 Cholesterol 106.19 LDL Cholesterol Direct 60 VLDL Cholesterol 8.0 L HDL Cholesterol 49 Impressions: Chest X-Ray 02/05/19 01:46 IMPRESSION: Emphysematous appearing lungs. No acute cardiopulmonary abnormality. copyright 2010 [employer]- All Rights Reserved Assessment & Plan - Diagnosis (1) Acute exacerbation of COPD with asthma Is this a current diagnosis for this admission?: Yes (2) Cigarette smoker one half pack a day or less Is this a current diagnosis for this admission?: Yes (3) Essential hypertension Is this a current diagnosis for this admission?: Yes (4) HLD (hyperlipidemia) Qualifiers: Hyperlipidemia type: unspecified Qualified Code(s): E78.5 - Hyperlipidemia, unspecified Is this a current diagnosis for this admission?: Yes (5) GERD (gastroesophageal reflux disease) Qualifiers: Esophagitis presence: without esophagitis Qualified Code(s): K21.9 - Gastro-esophageal reflux disease without esophagitis Is this a current diagnosis for this admission?: Yes (6) Constipation by delayed colonic transit Is this a current diagnosis for this admission?: Yes (7) CVA, old, hemiparesis Is this a current diagnosis for this admission?: Yes (8) Status post bilateral mastectomy Is this a current diagnosis for this admission?: Yes - Time Time Spent with patient: 25-34 minutes Medications reviewed and adjusted accordingly: Yes Anticipated discharge: Home with Homehealth Within: Other - Inpatient Certification Based on my medical assessment, after consideration of the patient's comorbidit ies, presenting symptoms, or acuity I expect that the services needed warrant INPATIENT care.: Yes I certify that my determination is in accordance with my understanding of [employer]'s requirements for reasonable and necessary INPATIENT services [42 CFR 412.3e].: Yes Medical Necessity: Significant Comorbidiites Make Outpatient Treatment Too Risky, Need Close Monitoring Due to Risk of Patient Decompensation, Need For IV Fluids, Need For Continuous Telemetry Monitoring, Need for Nebulizer Therapy and Monitoring of Response, Risk of Complication if Not Cared For in Hospital, Risk of Diagnosis Which Will Require Inpatient Eval/Care/Monitoring 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 Administer Dulcolax supp. 10 mg x 1 dose. Patient reused prescribed dose last night. Start on Colace 200 mg po daily. Restart on preadmission Xarelto 20 mg po daily. D/C Lovenox prophylactic therapy.
[2019-02-06] MEDS ORDERED: BISACODYL 10 MG SUPP.RECT PR ONE (07:30)
[2019-02-06] MEDS: NORMAL SALINE 1000 ML 1,000 ML IV PRN ×2 (08:06→18:43)
[2019-02-06] MEDS: MULTIVITAMIN TABLET PO SCH (09:20)
[2019-02-06] MEDS: MONTELUKAST SODIUM 10 MG TABLET PO SCH (09:20)
[2019-02-06] MEDS: MAGNESIUM OXIDE 400 MG TABLET PO SCH (09:20)
[2019-02-06] MEDS: ANASTROZOLE 1 MG TABLET PO SCH (09:21)
[2019-02-06] MEDS: LORATADINE 10 MG TABLET PO SCH (09:21)
[2019-02-06] MEDS: DOCUSATE SODIUM 100 MG CAPSULE PO SCH (09:21)
[2019-02-06] MEDS ORDERED: (PENDING PHARMACY ID) (Multivit-Min/Iron/Folic/Lutein [Centrum Silver Women Tablet] 1 EACH PO SCH (10:00)
[2019-02-06] MEDS ORDERED: (PENDING PHARMACY ID) (Linaclotide 145 MCG) PO SCH (10:00)
[2019-02-06] MEDS: RIVAROXABAN 10 MG TABLET PO SCH (16:35)
[2019-02-06] MEDS: LEVALBUTEROL HCL NEB 1.25 MG/3 ML AMPUL NEB PRN (20:34)
[2019-02-06] MEDS: ATORVASTATIN CALCIUM 20 MG TABLET PO SCH (21:45)
[2019-02-07] MEDS: LEVALBUTEROL HCL NEB 1.25 MG/3 ML AMPUL NEB PRN ×3 (02:25→20:18)
[2019-02-07] MEDS: NORMAL SALINE 1000 ML 1,000 ML IV PRN (05:06)
[2019-02-07] MEDS: PANTOPRAZOLE SODIUM 40 MG TABLET.DR PO SCH (05:07)
[2019-02-07] MEDS: METHYLPREDNISOLONE INJ 125 MG/2 ML SDV IV SCH ×2 (05:08→14:09)
[2019-02-07] MEDS ORDERED: IPRATROPIUM BROMIDE 0.06% NASAL SPRAY 15 ML NASL PRN (08:35)
[2019-02-07] MEDS: DOCUSATE SODIUM 100 MG CAPSULE PO SCH (10:09)
[2019-02-07] MEDS: MAGNESIUM OXIDE 400 MG TABLET PO SCH (10:09)
[2019-02-07] MEDS: LORATADINE 10 MG TABLET PO SCH (10:09)
[2019-02-07] MEDS: ANASTROZOLE 1 MG TABLET PO SCH (10:09)
[2019-02-07] MEDS: MULTIVITAMIN TABLET PO SCH (10:09)
[2019-02-07] MEDS: MONTELUKAST SODIUM 10 MG TABLET PO SCH (10:09)
[2019-02-07] MEDS: DILTIAZEM HCL 30 MG TABLET PO SCH ×3 (12:24→23:45)
[2019-02-07] MEDS: RIVAROXABAN 10 MG TABLET PO SCH (17:36)
--- NOTE | 2019-02-07 19:28 | PDOC PROGRESS REPORT ---
Subjective Progress Note for:: 02/07/19 Subjective:: Patient reported some improvement in her wheezing and difficulty with breathing but limitation due to abdominal distention from inability to move her bowel adequately. No chest pain. No fever or chills. No abdominal pain, nausea, or vomiting. Reason For Visit: EXACERBATED COPD Physical Exam Vital Signs: Temp Pulse Resp BP Pulse Ox 97.9 F 110 H 18 121/63 97 02/07/19 16:39 02/07/19 16:39 02/07/19 16:39 02/07/19 16:39 02/07/19 16:39 Intake & Output 02/06/19 02/07/19 02/08/19 06:59 06:59 06:59 Intake Total 2019 3473 1340 Balance 2019 3473 1340 Weight 57.2 kg 56.6 kg Physical Exam: General appearance: PRESENT: mild distress - remain on supplemental oxygen via nasal cannula at 2L/min Head exam: PRESENT: atraumatic, normocephalic Eye exam: PRESENT: conjunctiva pink. ABSENT: pallor, scleral icterus Ear exam: PRESENT: normal external ear exam Mouth exam: PRESENT: moist Respiratory exam: PRESENT: decreased breath sounds - at lung bases, rhonchi - minimal end expiration phase Cardiovascular exam: PRESENT: RRR, +S1, +S2, tachycardia. ABSENT: diastolic murmur, rubs, systolic murmur GI/Abdominal exam: PRESENT: normal bowel sounds, soft. ABSENT: distended, guarding, mass, organomegaly, rebound, tenderness Extremities exam: PRESENT: pedal edema - left upper extremity from lymphedema Neurological exam: PRESENT: alert, awake, oriented to person, oriented to place, oriented to time, oriented to situation, CN II-XII grossly intact. ABSENT: motor sensory deficit Psychiatric exam: PRESENT: appropriate affect, normal mood. ABSENT: homicidal ideation, suicidal ideation Skin exam: PRESENT: dry, warm Results Laboratory Results: 02/06/19 04:30 02/06/19 04:30 Impressions: Chest X-Ray 02/05/19 01:46 IMPRESSION: Emphysematous appearing lungs. No acute cardiopulmonary abnormality. copyright 2010 [employer]- All Rights Reserved Assessment & Plan - Diagnosis (1) Acute exacerbation of COPD with asthma Is this a current diagnosis for this admission?: Yes (2) Cigarette smoker one half pack a day or less Is this a current diagnosis for this admission?: Yes (3) Essential hypertension Is this a current diagnosis for this admission?: Yes (4) HLD (hyperlipidemia) Qualifiers: Hyperlipidemia type: unspecified Qualified Code(s): E78.5 - Hyperlipidemia, unspecified Is this a current diagnosis for this admission?: Yes (5) GERD (gastroesophageal reflux disease) Qualifiers: Esophagitis presence: without esophagitis Qualified Code(s): K21.9 - Gastro-esophageal reflux disease without esophagitis Is this a current diagnosis for this admission?: Yes (6) Constipation by delayed colonic transit Is this a current diagnosis for this admission?: Yes (7) CVA, old, hemiparesis Is this a current diagnosis for this admission?: Yes (8) Status post bilateral mastectomy Is this a current diagnosis for this admission?: Yes - Time Time Spent with patient: 25-34 minutes Medications reviewed and adjusted accordingly: Yes Anticipated discharge: Home with Homehealth Within: Other - Inpatient Certification Based on my medical assessment, after consideration of the patient's comorbidities, presenting symptoms, or acuity I expect that the services needed warrant INPATIENT care.: Yes I certify that my determination is in accordance with my understanding of Medicare's requirements for reasonable and necessary INPATIENT services [42 CFR 412.3e].: Yes Medical Necessity: Significant Comorbidiites Make Outpatient Treatment Too R isky, Need Close Monitoring Due to Risk of Patient Decompensation, Need For IV Fluids, Need For Continuous Telemetry Monitoring, Need for Nebulizer Therapy and Monitoring of Response, Risk of Complication if Not Cared For in Hospital, Risk of Diagnosis Which Will Require Inpatient Eval/Care/Monitoring 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 Start on Methylprednisolone 20 mg po bid with intent to taper over next 5 days. Administer Soap Suds enema to aide bowel movement. Encou raged mobility. Maintain on all other current medication management.
[2019-02-07] MEDS: METHYLPREDNISOLONE 4 MG TABLET PO SCH (22:00)
[2019-02-07] MEDS: ATORVASTATIN CALCIUM 20 MG TABLET PO SCH (22:11)
[2019-02-08] MEDS: LEVALBUTEROL HCL NEB 1.25 MG/3 ML AMPUL NEB PRN ×2 (02:03→12:04)
[2019-02-08] MEDS: PANTOPRAZOLE SODIUM 40 MG TABLET.DR PO SCH (05:26)
[2019-02-08] MEDS: DILTIAZEM HCL 30 MG TABLET PO SCH ×3 (05:27→17:32)
[2019-02-08] MEDS: MULTIVITAMIN TABLET PO SCH (09:21)
[2019-02-08] MEDS: MONTELUKAST SODIUM 10 MG TABLET PO SCH (09:21)
[2019-02-08] MEDS: LORATADINE 10 MG TABLET PO SCH (09:21)
[2019-02-08] MEDS: METHYLPREDNISOLONE 4 MG TABLET PO SCH ×2 (09:21→17:32)
[2019-02-08] MEDS: MAGNESIUM OXIDE 400 MG TABLET PO SCH (09:22)
[2019-02-08] MEDS: DOCUSATE SODIUM 100 MG CAPSULE PO SCH (09:22)
[2019-02-08] MEDS: ANASTROZOLE 1 MG TABLET PO SCH (09:22)
[2019-02-08] MEDS: RIVAROXABAN 10 MG TABLET PO SCH (17:32)
[2019-02-08 19:02] VITALS: BP 101/55
--- NOTE | 2019-02-08 19:22 | PDOC DISCHARGE SUMMARY ---
General - Admit/Disc Date/PCP Admission Date/Primary Care Provider: 02/05/19 08:16 LUKASZ ORNELAS Discharge Date: 02/08/19 - Discharge Diagnosis (1) Acute exacerbation of COPD with asthma Is this a current diagnosis for this admission?: Yes (2) Cigarette smoker one half pack a day or less Is this a current diagnosis for this admission?: Yes (3) Essential hypertension Is this a current diagnosis for this admission?: Yes (4) HLD (hyperlipidemia) Is this a current diagnosis for this admission?: Yes (5) GERD (gastroesophageal reflux disease) Is this a current diagnosis for this admission?: Yes (6) Constipation by delayed colonic transit Is this a current diagnosis for this admission?: Yes (7) CVA, old, hemiparesis Is this a current diagnosis for this admission?: Yes (8) Status post bilateral mastectomy Is this a current diagnosis for this admission?: Yes - Additional Information Resuscitation Status: Full Code Discharge Diet: Cardiac Discharge Activity: Activity As Tolerated, Slowly Increase Activity Prescriptions: Docusate Sodium [Colace 100 mg Capsule] 200 mg PO DAILY #60 capsule Furosemide [Lasix 20 mg Tablet] 20 mg PO QAM PRN #30 tablet PRN Reason: for swelling or excess fluid Methylprednisolone [Medrol 4 mg Tablet] 20 mg PO ASDIR PRN #44 tablet PRN Reason: Home Medications: Albuterol Sulfate [Proair HFA Inhalation Aerosol 8.5 gm MDI] 2 puff IH QID 02/05/19 Anastrozole [Arimidex] 1 mg PO DAILY 02/05/19 Diltiazem HCl [Diltiazem 12Hr ER] 60 mg PO Q12 02/05/19 Fexofenadine HCl [Barbara] 180 mg PO DAILY 02/05/19 Fluticasone/Umeclidin/Vilanter [Trelegy 100-62.5-25 Mcg Ellipta 14 Dose/Dpi] 1 each IH DAILY 02/05/19 Ipratropium [place] [Atrovent 0.06% Nasal [place]] 2 spray NASL QID PRN 02/05/19 Lansoprazole [Prevacid] 30 mg PO DAILY 02/05/19 Linaclotide [Linzess 145 Mcg Capsule] 145 mcg PO DAILY 02/05/19 Magnesium Oxide [Mag-Ox 400 mg Tablet] 400 mg PO DAILY 02/05/19 Megestrol Acetate 400 mg PO DAILY 02/05/19 Montelukast Sodium [Singulair 10 mg Tablet] 10 mg PO DAILY 02/05/19 Multivit-Min/Iron/Folic/Lutein [Centrum Silver Women Tablet] 1 each PO DAILY 02/05/19 Rosuvastatin Calcium [Crestor 10 mg Tablet] 10 mg PO DAILY 02/05/19 Docusate Sodium [Colace 100 mg Capsule] 200 mg PO DAILY #60 capsule 02/08/19 Furosemide [Lasix 20 mg Tablet] 20 mg PO QAM PRN #30 tablet 02/08/19 Methylprednisolone [Medrol 4 mg Tablet] 20 mg PO ASDIR PRN #44 tablet 02/08/19 Rivaroxaban [Xarelto 10 mg Tablet] 20 mg PO WSUPPER #0 tablet 02/08/19 History of Present Illness Patient complains of: Difficulty with breathing History of Present Illness: ARIELLA JUAREZ is a 53 year old female patient known to my practice who presented to the Ed with complaint of progressive shortness 0of breath with minimal productive cough over last 3 days. Patient related her symptom onset to humid weather but admitted to cigarette smoking. She denied any chest pain but reported rapid heart beat and heaviness in her chest. She engaged in self management at home but due to lack of improvement in her breathing ability decided to seek attention at the ED. Her initial evaluation at the ED revealed persistent wheezing and rhonchi despite repeated bronchodilator therapy. Due to persistence of her difficult with breathing and associated tachycardia she was advised hospitalization for further evaluation and management. Her morbidities include COPD, hypertension, hyperlipidemia, GERD, Old CVA with slight left hemiparesis, breast cancer s/p bilateral mastectomies. Hospital Course Hospital Course: Patient was admitted for exacerbated COPD. She was managed with IV Solu Medrol and bronchodilators. She eventually show improvement with her breathing and able to participate in self care. She was subsequently transition to oral Prednisolone tapering regimen. She reported significant constipation during this hospitalization necessitating treatment with suppository and Magnesium Citrate. She will remain on her Linzess therapy with addition of Colace 200 mg p.o daily. She She will be discharged home today and follow up in the office as instructed upon discharge. Physical Exam Vital Signs: Temp Pulse Resp BP Pulse Ox 97.4 F 100 18 101/55 L 99 02/08/19 19:01 02/08/19 19:01 02/08/19 19:01 02/08/19 19:01 02/08/19 19:01 Intake & Output 02/07/19 02/08/19 02/09/19 06:59 06:59 06:59 Intake Total 3473 1820 50 Output Total 1000 Balance 3473 820 50 Weight 56.6 kg 53.7 kg Physical Exam: General appearance: PRESENT: mild distress - remain on supplemental oxygen via nasal cannula at 2L/min Head exam: PRESENT: atraumatic, normocephalic Eye exam: PRESENT: conjunctiva pink. ABSENT: pallor, scleral icterus Ear exam: PRESENT: normal external ear exam Mouth exam: PRESENT: moist Respiratory exam: PRESENT: decreased breath sounds - at lung bases, rhonchi - minimal end expiration phase Cardiovascular exam: PRESENT: RRR, +S1, +S2, tachycardia. ABSENT: diastolic murmur, rubs, systolic murmur GI/Abdominal exam: PRESENT: normal bowel sounds, soft. ABSENT: distended, guarding, mass, organomegaly, rebound, tenderness Extremities exam: PRESENT: pedal edema - left upper extremity from lymphedema Neurological exam: PRESENT: alert, awake, oriented to person, oriented to place, oriented to time, oriented to situation, CN II-XII grossly intact. ABSENT: motor sensory deficit Psychiatric exam: PRESENT: appropriate affect, normal mood. ABSENT: homicidal ideation, suicidal ideation Skin exam: PRESENT: dry, warm Results Laboratory Results: 02/06/19 04:30 02/06/19 04:30 Impressions: Chest X-Ray 02/05/19 01:46 IMPRESSION: Emphysematous appearing lungs. No acute cardiopulmonary abnormality. copyright 2010 [facility] [employer]- All Rights Reserved Qualifiers - * PATIENT BEING DISCHARGED WITH ANY OF THE FOLLOWING DIAGNOSIS: No Acute Heart Failure - Is this a Heart Failure Patient?: No Plan Discharge Plan: D/C home today. Follow up in the office s instructed upon discharge.
== END 2019-02-08 19:20 | disposition home health service (06) | DRG 191 ==
LOC: ER 00:56 → EH 04:26 → 3S 07:03 → OBSVTOIN 08:16
PROVIDERS: ADMIT Internal Medicine Geriatric Medicine; ATTEND Internal Medicine Geriatric Medicine
DX: J44.1 Chronic obstructive pulmonary disease with (acute) exacerbation (principal); I69.354 Hemiplegia and hemiparesis following cerebral infarction affecting left non-dominant side; I11.0 Hypertensive heart disease with heart failure; I50.9 Heart failure, unspecified; E78.5 Hyperlipidemia, unspecified; K59.01 Slow transit constipation; K21.9 Gastro-esophageal reflux disease without esophagitis; R00.0 Tachycardia, unspecified; Z96.612 Presence of left artificial shoulder joint; F17.210 Nicotine dependence, cigarettes, uncomplicated; Z90.13 Acquired absence of bilateral breasts and nipples; Z85.3 Personal history of malignant neoplasm of breast; Z88.8 Allergy status to other drugs, medicaments and biological substances
CPT/HCPCS: 36415; 71045; 80048; 80053; 80061; 85025; 93005; 93010; 94640; 99285; J1650; J2930; J3490; J7030; J7509; J7620

== ENCOUNTER 2019-03-14 20:16 | Inpatient (IN) | payer MEDICARE ==
--- NOTE | 2019-03-14 20:51 | ER Document Report ---
ED Medical Screen (RME) - General Chief Complaint: Shortness Of Breath Stated Complaint: DIFFICULTY BREATHING Time Seen by Provider: 03/14/19 20:42 Primary Care Provider: LUKASZ ORNELAS MD [Primary Care Provider] - Follow up as needed Notes: Patient is a 53-year-old female who presents emergency department with a chief complaint of shortness of breath. Patient has COPD. She was recently placed on a Medrol pack. She also is a current everyday smoker. Exam: Expiratory and expiratory wheezes noted throughout all lung alonzo. I have greeted and performed a rapid initial assessment of this patient. A comprehensive ED assessment and evaluation of the patient, analysis of test results and completion of medical decision making process will be conducted by an additional ED providers. TRAVEL OUTSIDE OF THE [place] IN LAST 30 DAYS: No - Related Data Allergies/Adverse Reactions: prednisone [Prednisone] Adverse Reaction (Intermediate, Verified 08/29/18 13:32) Past Medical History - Past Medical History Cardiac Medical History: Reports: Hx Congestive Heart Failure, Hx Hyp ercholesterolemia Denies: Hx Coronary Artery Disease, Hx Heart Attack, Hx Hypertension Pulmonary Medical History: Reports: Hx Asthma, Hx Bronchitis, Hx COPD, Hx Pneumonia Denies: Hx Respiratory Failure, Hx Sleep Apnea, Hx Tuberculosis Neurological Medical History: Reports: Hx Cerebrovascular Accident - WEAKNESS ON LEFT SIDE. Denies: Hx Seizures Endocrine Medical History: Renal/ Medical History: Reports: Hx Ovarian Cysts. Denies: Hx Peritoneal Dialysis Malignancy Medical History: Reports: Hx Breast Cancer GI Medical History: Reports: Hx Gastroesophageal Reflux Disease, Hx Hiatal Hernia Musculoskeltal Medical History: Denies Hx Arthritis, Denies Hx Multiple Sclerosis, Denies Hx Systemic Lupus Erythematosus Psychiatric Medical History: Denies: Hx Dementia, Hx Depression Infectious Medical History: Past Surgical History: Reports: Hx Mastectomy - bilat 2010, Hx Orthopedic Surgery - left shoulder replacement 09/10. Denies: Hx Hysterectomy, Hx Pacemaker - Immunizations Immunizations up to date: Yes Hx Diphtheria, Pertussis, Tetanus Vaccination: No History of Influenza Vaccine for 03/2017 - 08/2017 Season: Unknown Influenza Administration Date for 03/2017 - 08/2017 Season: 03/26/17 Physical Exam - Vital signs Vitals: Temp Pulse Resp BP Pulse Ox 99.1 F 114 H 22 H 120/70 99 03/14/19 20:29 03/14/19 20:29 03/14/19 20:29 03/14/19 20:29 03/14/19 20:29 Course - Vital Signs Vital signs: Temp Pulse Resp BP Pulse Ox 99.1 F 114 H 22 H 120/70 99 03/14/19 20:29 03/14/19 20:29 03/14/19 20:29 03/14/19 20:29 03/14/19 20:29 Doctor's Discharge - Discharge Referrals: LUKASZ ORNELAS MD [Primary Care Provider] - Follow up as needed
[2019-03-14] MEDS ORDERED: ALBUTEROL SULFATE 0.083% NEB 2.5 MG/3 ML AMPUL NEB ONE (20:55)
[2019-03-14] MEDS ORDERED: METHYLPREDNISOLONE INJ 125 MG/2 ML SDV IV ONE (20:56)
[2019-03-14] MEDS ORDERED: LEVOFLOXACIN 750 MG/D5W RTU 750 MG/150 ML RTUPB IV ONE (20:57)
--- NOTE | 2019-03-14 20:59 | ER Document Report ---
ED General - General Chief Complaint: Shortness Of Breath Stated Complaint: DIFFICULTY BREATHING Time Seen by Provider: 03/14/19 20:42 TRAVEL OUTSIDE OF THE [place] IN LAST 30 DAYS: No - HPI Notes: Patient presents with progressive shortness of breath and mild productive cough since Monday of this week. She has a history of CHF and COPD. She is states she has been taking her medications as prescribed. No recent change in medication. Denies any chest pain. - Related Data Allergies/Adverse Reactions: prednisone [Prednisone] Adverse Reaction (Intermediate, Verified 08/29/18 13:32) Past Medical History - Social History Smoking Status: Unknown if Ever Smoked Family History: Hypertension - Past Medical History Cardiac Medical History: Reports: Hx Congestive Heart Failure, Hx Hypercholesterolemia Denies: Hx Coronary Artery Disease, Hx Heart Attack, Hx Hypertension Pulmonary Medical History: Reports: Hx Asthma, Hx Bronchitis, Hx COPD, Hx Pneumonia Denies: Hx Respiratory Failure, Hx Sleep Apnea, Hx Tuberculosis Neurological Medical History: Reports: Hx Cerebrovascular Accident - WEAKNESS ON LEFT SIDE. Denies: Hx Seizures Endocrine Medical History: Renal/ Medical History: Reports: Hx Ovarian Cysts. Denies: Hx Peritoneal Dialysis Malignancy Medical History: Reports: Hx Breast Cancer GI Medical History: Reports: Hx Gastroesophageal Reflux Disease, Hx Hiatal Hernia Musculoskeletal Medical History: Denies Hx Arthritis, Denies Hx Multiple Sclerosis, Denies Hx Systemic Lupus Erythematosus Psychiatric Medical History: Denies: Hx Dementia, Hx Depression Infectious Medical History: Past Surgical History: Reports: Hx Mastectomy - bilat 2010, Hx Orthopedic Surgery - left shoulder replacement 09/10. Denies: Hx Hysterectomy, Hx Pacemaker - Immunizations Immunizations up to date: Yes Hx Diphtheria, Pertussis, Tetanus Vaccination: No Hx Pneumococcal Vaccination: 06/26/11 Review of Systems - Review of Systems Constitutional: No symptoms reported EENT: No symptoms reported Cardiovascular: No symptoms reported Respiratory: See HPI Gastrointestinal: No symptoms reported Genitourinary: No symptoms reported Female Genitourinary: No symptoms reported Musculoskeletal: No symptoms reported Skin: No symptoms reported Hematologic/Lymphatic: No symptoms reported Neurological/Psychological: No symptoms reported Physical Exam - Vital signs Vitals: Temp Pulse Resp BP Pulse Ox 99.1 F 114 H 22 H 120/70 99 03/14/19 20:29 03/14/19 20:29 03/14/19 20:29 03/14/19 20:29 03/14/19 20:29 - General General appearance: Appears well, Alert - HEENT Head: Normocephalic, Atraumatic - Respiratory Respiratory status: No respiratory distress, Other - On 2 L chronic, decreased air movement and prolonged end expiratory breath phase with diffuse wheezing - Cardiovascular Rhythm: Tachycardia Heart sounds: Normal auscultation Murmur: No - Abdominal Inspection: Normal Distension: No distension Bowel sounds: Normal - Back Back: Normal, Nontender - Extremities General upper extremity: Normal inspection, Normal ROM General lower extremity: Other - Has bilateral lower extremity edema - Neurological Neuro grossly intact: Yes Cognition: Normal Orientation: AAOx4 Course - Re-evaluation Re-evalutation: 03/14/19 22:21 Patient be admitted for COPD exacerbation - Vital Signs Vital signs: Temp Pulse Resp BP Pulse Ox 98.4 F 123 H 20 116/72 95 03/18/19 09:22 03/18/19 09:50 03/18/19 09:50 03/18/19 12:00 03/18/19 09:50 - Laboratory Result Diagrams: 03/18/19 04:55 03/18/19 04:55 Laboratory results interpreted by me: 03/14/19 03/14/19 03/14/19 21:53 22:40 22:40 WBC 10.9 H MCV 100 H ABG pO2 115.0 H ABG HCO3 24.2 H ABG Total CO2 25.3 H ABG O2 Saturation 98.3 H Potassium 3.4 L Alkaline Phosphatase 34 L Total Protein 5.8 L - EKG Interpretation by Al EKG shows normal: Sinus rhythm Rate: Tachycardia - Poor data quality, normal axis and intervals, no concerning ST depressions or elevations Discharge - Discharge Clinical Impression: COPD exacerbation Disposition: ADMITTED INPATIENT Admitting Provider: Kia (Hospitalist) Unit Admitted: Telemetry
[2019-03-14] MEDS: IPRATROPIUM BROMIDE 0.02% NEB 0.5 MG/2.5 ML AMPUL NEB PRN ×2 (21:16→21:41)
[2019-03-14 22:11] LABS: ARTERIAL BLOOD BASE EXCESS -0.1 mmol/L; ARTERIAL BLOOD H2CO3 1.15 mmol/L (1.05-1.35); ARTERIAL BLOOD HCO3 24.2 mmol/L (20-24); ARTERIAL BLOOD O2 SATURATION 98.3 % (94-98); ARTERIAL BLOOD PCO2 38.1 mmHg (35-45); ARTERIAL BLOOD PH 7.42 (7.35-7.45); ARTERIAL BLOOD TOTAL CO2 25.3 mmol/L (21-25)
[2019-03-14 22:12] LABS: ARTERIAL BLOOD FIO2 28%
--- NOTE | 2019-03-14 22:17 | RADIOLOGY REPORT (SQ) ---
EXAM DESCRIPTION: XR CHEST 1 VIEW COMPLETED DATE/TME: 03/14/2019 20:50 CLINICAL HISTORY: 53 years, Female, sob COMPARISON: 02/05/2019 chest NUMBER OF VIEWS: 1 TECHNIQUE: Portable chest LIMITATIONS: None. FINDINGS: The heart size is normal. Osteopenia. Emphysema. Stable postsurgical change. Small left effusion and/or pleural thickening. No pneumothorax IMPRESSION: Emphysema. Small left effusion and/or pleural thickening copyright 2010 [employer]- All Rights Reserved
[2019-03-14 22:54] LABS: ABSOLUTE BASOPHILS # (AUTO) 0.1 10^3/uL (0.0-0.2); ABSOLUTE LYMPHOCYTES (AUTO) 3.7 10^3/uL (0.5-4.7); ABSOLUTE MONOCYTES (AUTO) 0.9 10^3/uL (0.1-1.4); ABSOLUTE NEUT (AUTO) 6.1 10^3/uL (1.7-8.2); BASOPHILS % (AUTO) 1.2 % (0-2); EOSINOPHILS % (AUTO) 0.4 % (0-6); HEMATOCRIT 37.1 % (36.0-47.0); HEMOGLOBIN 12.4 g/dL (12.0-15.5); LYMPHOCYTES % (AUTO) 33.9 % (13-45); MEAN CORPUSCULAR HEMOGLOBIN 33.2 pg (27.0-33.4); MEAN CORPUSCULAR HGB CONC 33.4 g/dL (32.0-36.0); MEAN CORPUSCULAR VOLUME 100 fl (80-97); MONOCYTES % (AUTO) 8.2 % (3-13); PLATELET COUNT 284 10^3/uL (150-450); RED BLOOD COUNT 3.73 10^6/uL (3.72-5.28); SEGMENTED NEUTROPHILS % (AUTO) 56.3 % (42-78); TOTAL CELLS COUNTED % (AUTO) 100 %; WHITE BLOOD COUNT 10.9 10^3/uL (4.0-10.5)
[2019-03-14 23:17] LABS: ALBUMIN 3.5 g/dL (3.5-5.0); ALKALINE PHOSPHATASE 34 U/L (38-126); ANION GAP 7 (5-19); ASPARTATE AMINO TRANSFERASE 20 U/L (14-36); BILIRUBIN,DIRECT 0.1 mg/dL (0.0-0.4); BILIRUBIN,TOTAL 0.2 mg/dL (0.2-1.3); BLOOD UREA NITROGEN 13 mg/dL (7-20); CALCIUM 8.7 mg/dL (8.4-10.2); CARBON DIOXIDE 29 mmol/L (22-30); CHLORIDE 104 mmol/L (98-107); GLUCOSE 98 mg/dL (75-110); POTASSIUM 3.4 mmol/L (3.6-5.0); TOTAL PROTEIN 5.8 g/dL (6.3-8.2)
--- NOTE | 2019-03-15 00:01 | EKG REPORT ---
SEVERITY:- BORDERLINE ECG - SINUS TACHYCARDIA BORDERLINE T ABNORMALITIES, ANT-LAT LEADS BIATRIAL ENLARGEMENT : Confirmed by: Harvinder Allison MD 14-Mar-2019 23:59:33
[2019-03-15] MEDS: METHYLPREDNISOLONE INJ 125 MG/2 ML SDV IV SCH ×3 (05:39→21:55)
[2019-03-15] MEDS: LEVALBUTEROL HCL NEB 1.25 MG/3 ML AMPUL NEB PRN ×2 (13:36→23:35)
[2019-03-15] MEDS ORDERED: IPRATROPIUM BROMIDE 0.06% NASAL SPRAY 15 ML NASL PRN (19:24)
[2019-03-15] MEDS ORDERED: FUROSEMIDE 20 MG TABLET PO PRN (19:24)
[2019-03-15] MEDS ORDERED: (PENDING PHARMACY ID) (Linaclotide 145 MCG) PO SCH (19:30)
[2019-03-15 19:39] LABS: APPEARANCE,URINE TURBID; BILIRUBIN,URINE NEGATIVE (NEGATIVE); COLOR,URINE AMBER; GLUCOSE, URINE 150 mg/dL (NEGATIVE); KETONES,URINE TRACE mg/dL (NEGATIVE); LEUKOCYTE ESTERASE,URINE NEGATIVE (NEGATIVE); NITRITE,URINE NEGATIVE (NEGATIVE); PROTEIN,URINE 30 mg/dL (NEGATIVE)
--- NOTE | 2019-03-15 19:50 | PDOC H&P ---
History of Present Illness Admission Date/PCP: 03/14/19 23:50 LUKASZ CECI Patient complains of: Difficulty with breathing History of Present Illness: ARIELLA JUAREZ is a 53 year old female known to my practice who presented to the ED due to worsening difficulty with breathing. Patient reported limited benefit from use of her bronchodilators at home. She reported associated coughing with minimal sputum production and bilateral leg swelling. She denied any chest pain, palpitation, or irregular heart beats. No fever but did experience chills and slight sore throat. she denied associated nausea., vomiting or abdominal pain. No diarrhea but reported constipation and abdominal distention. She denied any hematuria, dysuria, or flank pain. her initial edi luation in the ED was significant for respiratory distress with audible wheezing, prolong expiratory breathing and decrease air flow. Despite several bronchodilators administration her respiratory distress did not improved. She was advised hospitalization for further evaluation and management. her m orbidities include HTN, CHF, HLD, Asthma , COPD, GERD, old stroke with residual left sided hemiparesis, breast cancer s/p bilateral mastectomies. Past Medical History Cardiac Medical History: Reports: Congestive Heart Failure, Hyperlipidema Denies: Coronary Artery Disease, Myocardial Infarction, Hypertension Pulmonary Medical History: Reports: Asthma, Bronchitis, Chronic Obstructive Pulmonary Disease (COPD), Pneumonia Denies: Respiratory Failure, Sleep Apnea, Tuberculosis Neurological Medical History: Denies: Seizures Endocrine Medical History: Malignancy Medical History: Reports: Breast Cancer GI Medical History: Reports: Gastroesophageal Reflux Disease, Hiatal Hernia Musculoskeltal Medical History: Denies: Arthritis Psychiatric Medical History: Denies: Dementia, Depression Hematology: Denies: Anemia Past Surgical History Past Surgical History: Reports: Mastectomy - bilat 2010, Orthopedic Surgery - left shoulder replacement 09/10 Denies: Hysterectomy, Pacemaker Social History Smoking Status: Former Smoker Frequency of Alcohol Use: None Hx Recreational Drug Use: No Drugs: None Hx Prescription Drug Abuse: No - Advance Directive Resuscitation Status: Full Code Family History Family History: Hypertension Parental Family History Reviewed: Yes Children Family History Reviewed: Yes Sibling(s) Family History Reviewed.: Yes Medication/Allergy Home Medications: Albuterol Sulfate [Proair HFA Inhalation Aerosol 8.5 gm MDI] 2 puff IH QID 02/05/19 Anastrozole [Arimidex] 1 mg PO DAILY 02/05/19 Diltiazem HCl [Diltiazem 12Hr ER] 60 mg PO Q12 02/05/19 Fexofenadine HCl [Barbara] 180 mg PO DAILY 02/05/19 Fluticasone/Umeclidin/Vilanter [Trelegy 100-62.5-25 Mcg Ellipta 14 Dose/Dpi] 1 e ach IH DAILY 02/05/19 Ipratropium [place] [Atrovent 0.06% Nasal [place]] 2 spray NASL QID PRN 02/05/19 Lansoprazole [Prevacid] 30 mg PO DAILY 02/05/19 Linaclotide [Linzess 145 Mcg Capsule] 145 mcg PO DAILY 02/05/19 Magnesium Oxide [Mag-Ox 400 mg Tablet] 400 mg PO DAILY 02/05/19 Megestrol Acetate 400 mg PO DAILY 02/05/19 Montelukast Sodium [Singulair 10 mg Tablet] 10 mg PO DAILY 02/05/19 Multivit-Min/Iron/Folic/Lutein [Centrum Silver Women Tablet] 1 each PO DAILY 02/05/19 Rosuvastatin Calcium [Crestor 10 mg Tablet] 10 mg PO DAILY 02/05/19 Docusate Sodium [Colace 100 mg Capsule] 200 mg PO DAILY #60 capsule 02/08/19 Furosemide [Lasix 20 mg Tablet] 20 mg PO QAM PRN #30 tablet 02/08/19 Methylprednisolone [Medrol 4 mg Tablet] 20 mg PO ASDIR PRN #44 tablet 02/08/19 Rivaroxaban [Xarelto 10 mg Tablet] 20 mg PO WSUPPER #0 tablet 02/08/19 Allergies/Adverse Reactions: prednisone [Prednisone] Adverse Reaction (Intermediate, Verified 08/29/18 13:32) Review of Systems Constitutional: PRESENT: chills, weakness Ears: ABSENT: hearing changes Nose, Mouth, and Throat: PRESENT: sore throat Cardiovascular: PRESENT: dyspnea on exertion, edema Respiratory: PRESENT: cough, dyspnea, sputum Gastrointestinal: PRESENT: bloating, constipation. ABSENT: abdominal pain, diarrhea, hematemesis, hematochezia, nausea, vomiting Genitourinary: ABSENT: dysuria, hematuria Musculoskeletal: PRESENT: joint swelling - more of ankle joints Integumentary: ABSENT: rash, wounds Neurological: PRESENT: weakness - left side. ABSENT: abnormal gait, abnormal speech, confusion, dizziness, focal weakness, syncope Endocrine: ABSENT: cold intolerance, heat intolerance, polydipsia, polyuria Hematologic/Lymphatic: ABSENT: easy bleeding, easy bruising, lymphadenopathy Allergic/Immunologic: ABSENT: seasonal rhinorrhea Physical Exam Vital Signs: Temp Pulse Resp BP Pulse Ox 99.0 F 102 H 19 99/64 L 100 03/15/19 07:41 03/15/19 07:41 03/15/19 07:41 03/15/19 07:41 03/15/19 07:41 Intake & Output 03/14/19 03/15/19 03/16/19 06:59 06:59 06:59 Intake Total 470 Output Total 0 Balance 470 Weight 58.6 kg General appearance: PRESENT: mild distress - on supplemental oxygen via nasal cannula Head exam: PRESENT: atraumatic, normocephalic Eye exam: PRESENT: conjunctiva pink, EOMI, PERRLA. ABSENT: scleral icterus Ear exam: PRESENT: normal external ear exam Mouth exam: PRESENT: moist Teeth exam: PRESENT: edentulous - dentures in use Throat exam: ABSENT: post pharyngeal erythema, tonsillar erythema, tonsillar exudate, tonsillogmegaly, other Respiratory exam: PRESENT: decreased breath sounds, prolonged expiratory phas, rhonchi, wheezes. ABSENT: crackles, rales Cardiovascular exam: PRESENT: RRR. ABSENT: diastolic murmur, rubs, systolic murmur Vascular exam: ABSENT: pallor GI/Abdominal exam: PRESENT: distended, normal bowel sounds, soft. ABSENT: ascites, guarding, mass, organolmegaly, tenderness Rectal exam: PRESENT: deferred Extremities exam: PRESENT: pedal edema - bilateral 1 + Musculoskeletal exam: PRESENT: ambulatory Neurological exam: PRESENT: alert, awake, oriented to person, oriented to place, oriented to time, oriented to situation, CN II-XII grossly intact. ABSENT: motor sensory deficit Psychiatric exam: PRESENT: anxious Skin exam: PRESENT: dry, warm Results Laboratory Results: 03/14/19 22:40 03/14/19 22:40 03/14/19 03/14/19 03/14/19 21:53 22:40 22:40 WBC 10.9 H RBC 3.73 Hgb 12.4 Hct 37.1 MCV 100 H MCH 33.2 MCHC 33.4 RDW 14.0 Plt Count 284 Seg Neutrophils % 56.3 Carbonic Acid 1.15 HCO3/H2CO3 Ratio 21:1 ABG pH 7.42 ABG pCO2 38.1 ABG pO2 115.0 H ABG HCO3 24.2 H ABG O2 Saturation 98.3 H ABG Base Excess -0.1 FiO2 28% Sodium 140.0 Potassium 3.4 L Chloride 104 Carbon Dioxide 29 Anion Gap 7 BUN 13 Creatinine 0.85 Est GFR ( Amer) > 60 Glucose 98 Calcium 8.7 Magnesium 2.1 Total Bilirubin 0.2 AST 20 Alkaline Phosphatase 34 L Total Protein 5.8 L Albumin 3.5 03/14/19 22:40 Troponin I < 0.012 Impressions: Chest X-Ray 03/14/19 20:50 IMPRESSION: Emphysema. Small left effusion and/or pleural thickening copyright 2010 [employer]- All Rights Reserved Assessment & Plan - Diagnosis (1) Acute exacerbation of COPD with asthma Is this a current diagnosis for this admission?: Yes Plan: See admitting attending physician orders for details about care plan. (2) Hypokalemia Is this a current diagnosis for this admission?: Yes Plan: See admitting attending physician orders for details about care plan. (3) Essential hypertension Is this a current diagnosis for this admission?: Yes Plan: See admitting attending physician orders for details about care plan. (4) HLD (hyperlipidemia) Qualifiers: Hyperlipidemia type: unspecified Qualified Code(s): E78.5 - Hyperlipidemia, unspecified Is this a current diagnosis for this admission?: Yes Plan: See admitting attending physician orders for details about care plan. (5) CVA, old, hemiparesis Is this a current diagnosis for this admission?: Yes Plan: See admitting attending physician orders for details about care plan. (6) GERD (gastroesophageal reflux disease) Qualifiers: Esophagitis presence: without esophagitis Qualified Code(s): K21.9 - Gastro-esophageal reflux disease without esophagitis Is this a current diagnosis for this admission?: Yes Plan: See admitting attending physician orders for details about care plan. (7) Constipation Qualifiers: Constipation type: unspecified constipation type Qualified Code(s): K59.00 - Constipation, unspecified Is this a current diagnosis for this admission?: Yes Plan: See admitting attending physician orders for details about care plan. - Time Time Spent: 50 to 70 Minutes Medications reviewed and adjusted accordingly: Yes Anticipated discharge: Home with Homehealth Within: Other - Inpatient Certification Based on my medical assessment, after consideration of the patient's comorbidities, presenting symptoms, or acuity I expect that the services needed warrant INPATIENT care.: Yes I certify that my determination is in accordance with my understanding of Medicare's requirements for reasonable and necessary INPATIENT services [42 CFR 412.3e].: Yes Medical Necessity: Significant Comorbidiites Make Outpatient Treatment Too Risky, Need Close Monitoring Due to Risk of Patient Decompensation, Need For Continuous Telemetry Monitoring, Need for Nebulizer Therapy and Monitoring of Response, Need for IV Antibiotics, Risk of Complication if Not Cared For in Hospital, Risk of Diagnosis Which Will Require Inpatient Eval/Care/Monitoring Post Hospital Care: D/C [employer] Documentation - Plan Summary Plan Summary: See admitting attending physician orders for details about care plan.
[2019-03-15] MEDS ORDERED: POTASSIUM CHLORIDE 10 MEQ CAPSULE.ER PO ONE (20:15)
[2019-03-15] MEDS: POTASSIUM CHLORIDE 10 MEQ CAPSULE.ER PO SCH ×2 (20:21→21:54)
[2019-03-15] MEDS: DOCUSATE SODIUM 100 MG CAPSULE PO SCH (20:22)
[2019-03-15] MEDS: RIVAROXABAN 10 MG TABLET PO SCH (20:23)
[2019-03-15] MEDS: ATORVASTATIN CALCIUM 20 MG TABLET PO SCH (21:55)
[2019-03-15] MEDS: DILTIAZEM HCL 60 MG TABLET PO SCH (21:55)
[2019-03-15] MEDS ORDERED: (PENDING PHARMACY ID) (Diltiazem Hcl [Diltiazem 12hr Er] 60 MG) PO SCH (22:00)
[2019-03-16] MEDS: METHYLPREDNISOLONE INJ 125 MG/2 ML SDV IV SCH ×3 (05:30→21:41)
[2019-03-16 09:22] LABS: ARTERIAL BLOOD BASE EXCESS -1.9 mmol/L; ARTERIAL BLOOD H2CO3 1.13 mmol/L (1.05-1.35); ARTERIAL BLOOD HCO3 22.6 mmol/L (20-24); ARTERIAL BLOOD O2 SATURATION 97.6 % (94-98); ARTERIAL BLOOD PCO2 37.7 mmHg (35-45); ARTERIAL BLOOD PO2 100.1 mmHg (80-100); ARTERIAL BLOOD TOTAL CO2 23.8 mmol/L (21-25)
[2019-03-16 09:23] LABS: ARTERIAL BLOOD FIO2 3L
[2019-03-16] MEDS ORDERED: (PENDING PHARMACY ID) (Multivit-Min/Iron/Folic/Lutein [Centrum Silver Women Tablet] 1 EACH PO SCH (10:00)
[2019-03-16] MEDS: LORATADINE 10 MG TABLET PO SCH (10:20)
[2019-03-16] MEDS: DOCUSATE SODIUM 100 MG CAPSULE PO SCH (10:20)
[2019-03-16] MEDS: DILTIAZEM HCL 60 MG TABLET PO SCH ×2 (10:20→21:41)
[2019-03-16] MEDS: MAGNESIUM OXIDE 400 MG TABLET PO SCH (10:20)
[2019-03-16] MEDS: MONTELUKAST SODIUM 10 MG TABLET PO SCH (10:20)
[2019-03-16] MEDS: MULTIVITAMIN TABLET PO SCH (10:20)
[2019-03-16] MEDS: ANASTROZOLE 1 MG TABLET PO SCH (10:20)
[2019-03-16 11:07] LABS: ANION GAP 10 (5-19); BLOOD UREA NITROGEN 15 mg/dL (7-20); CALCIUM 9.1 mg/dL (8.4-10.2); CARBON DIOXIDE 21 mmol/L (22-30); CHLORIDE 109 mmol/L (98-107); GLUCOSE 229 mg/dL (75-110); POTASSIUM 4.5 mmol/L (3.6-5.0)
--- NOTE | 2019-03-16 11:17 | PDOC PROGRESS REPORT ---
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 Lamb Patient denied any chest pain Patient after using the BiPAP feel better Patient is feeling like she fluid retention's Patient's no swelling in the legs Patient is to take the Lasix at home's Reason For Visit: EXACERBATED COPD Physical Exam Vital Signs: Temp Pulse Resp BP Pulse Ox 98.1 F 101 H 16 110/61 100 03/16/19 08:20 03/16/19 08:20 03/16/19 08:20 03/16/19 08:20 03/16/19 08:20 Intake & Output 03/15/19 03/16/19 03/17/19 06:59 06:59 06:59 Intake Total 470 1956 Output Total 0 1 Balance 470 1955 Weight 58.6 kg 61 kg General appearance: PRESENT: no acute distress, well-developed, well-nourished Head exam: PRESENT: atraumatic, normocephalic Eye exam: PRESENT: conjunctiva pink, EOMI, PERRLA. ABSENT: scleral icterus Ear exam: PRESENT: normal external ear exam Mouth exam: PRESENT: moist, tongue midline Neck exam: PRESENT: full ROM. ABSENT: carotid bruit, JVD, lymphadenopathy, t hyromegaly Respiratory exam: PRESENT: decreased breath sounds Cardiovascular exam: PRESENT: RRR. ABSENT: diastolic murmur, rubs, systolic murmur Pulses: PRESENT: normal dorsalis pedis pul, +2 pedal pulses bilateral Vascular exam: PRESENT: normal capillary refill GI/Abdominal exam: PRESENT: normal bowel sounds, soft. ABSENT: distended, guarding, mass, organolmegaly, rebound, tenderness Rectal exam: PRESENT: deferred Extremities exam: ABSENT: pedal edema Neurological exam: PRESENT: alert, awake, oriented to person, oriented to place, oriented to time, oriented to situation, CN II-XII grossly intact. ABSENT: motor sensory deficit Psychiatric exam: PRESENT: appropriate affect, normal mood. ABSENT: homicidal ideation, suicidal ideation Skin exam: PRESENT: dry, intact, warm. ABSENT: cyanosis, rash Results Laboratory Results: 03/14/19 22:40 03/16/19 10:39 03/15/19 03/15/19 03/16/19 19:15 19:58 08:50 Carbonic Acid HCO3/H2CO3 Ratio ABG pH ABG pCO2 ABG pO2 ABG HCO3 ABG O2 Saturation ABG Base Excess FiO2 Sodium Cancelled Potassium Cancelled Chloride Cancelled Carbon Dioxide Cancelled Anion Gap Cancelled BUN Cancelled Creatinine Cancelled Est GFR ( Amer) Cancelled Est GFR (Non-Af Amer) Cancelled Glucose Cancelled Calcium Cancelled Magnesium 2.4 H Urine Color NEAL Urine Appearance TURBID Urine pH 5.0 Ur Specific [place] 1.040 Urine Protein 30 H Urine Glucose (UA) 150 H Urine Ketones TRACE H Urine Blood NEGATIVE Urine Nitrite NEGATIVE Ur Leukocyte Esterase NEGATIVE Urine WBC (Auto) 10 Urine RBC (Auto) 6 03/16/19 03/16/19 09:05 10:39 Carbonic Acid 1.13 HCO3/H2CO3 Ratio 20:1 ABG pH 7.40 ABG pCO2 37.7 ABG pO2 100.1 H ABG HCO3 22.6 ABG O2 Saturation 97.6 ABG Base Excess -1.9 FiO2 3L Sodium 139.6 Potassium 4.5 Chloride 109 H Carbon Dioxide 21 L Anion Gap 10 BUN 15 Creatinine 0.64 Est GFR ( Amer) > 60 Est GFR (Non-Af Amer) Glucose 229 H Calcium 9.1 Magnesium Urine Color Urine Appearance Urine pH Ur Specific [place] Urine Protein Urine Glucose (UA) Urine Ketones Urine Blood Urine Nitrite Ur Leukocyte Esterase Urine WBC (Auto) Urine RBC (Auto) 03/14/19 22:40 Troponin I < 0.012 Impressions: Chest X-Ray 03/14/19 20:50 IMPRESSION: Emphysema. Small left effusion and/or pleural thickening copyright 2011 [employer]- All Rights Reserved Assessment & Plan - Diagnosis (1) Shortness of breath Is this a current diagnosis for this admission?: Yes Plan: With the multifactorial's most likely from COPD underlying diastolic heart failure's or pulmonary hypertension's We will get the previous echo reports We will get the CT angiogram Continues to nebulizer treatments Reduce the steroids (2) History of breast cancer Is this a current diagnosis for this admission?: Yes (3) Congestive heart failure Qualifiers: Heart failure type: diastolic Is this a current diagnosis for this admission?: Yes Plan: Consult the cardiology to further evaluate (4) COPD exacerbation Is this a current diagnosis for this admission?: Yes (5) Cough Is this a current diagnosis for this admission?: Yes Plan: Continues to antibiotics with that the sputum culture - Time Time Spent with patient: 15-24 minutes Medications reviewed and adjusted accordingly: Yes Anticipated discharge: Home Within: Other - Plan Summary Plan Summary: We will get the CT angiogram to rule out underlying any other conditions due to the hypoxia requiring BiPAP We will consult the cardiology Continue some nebulizer treatments Reduce the IV steroids
[2019-03-16] MEDS: LEVALBUTEROL HCL NEB 1.25 MG/3 ML AMPUL NEB PRN ×2 (11:39→20:11)
--- NOTE | 2019-03-16 12:42 | RADIOLOGY REPORT (SQ) ---
EXAM DESCRIPTION: CHEST SINGLE VIEW COMPLETED DATE/TIME: 03/16/2019 11:48 am REASON FOR STUDY: Shortness of Breath COMPARISON: None. 03/14/2019. 08/20/2018. EXAM PARAMETERS: NUMBER OF VIEWS: One view. TECHNIQUE: Single frontal radiographic view of the chest acquired. RADIATION DOSE: NA LIMITATIONS: None. FINDINGS: LUNGS AND PLEURA: Marked hyperinflation of the lungs consistent with COPD with chronic lef t basilar pleuroparenchymal change. MEDIASTINUM AND HILAR STRUCTURES: No masses. Contour normal. HEART AND VASCULAR STRUCTURES: The heart and pulmonary vasculature are normal. BONES: No acute findings. HARDWARE: Total left humeral prosthesis in place. Surgical clips left axilla. Surgical clips over m id right chest. OTHER: Chest leads in place. IMPRESSION: COPD. Chronic left basilar pleuroparenchymal change. TECHNICAL DOCUMENTATION: JOB ID: [id number] [id number] [employer]- All Rights Reserved Reading location - IP/workstation name: [email or web address]
[2019-03-16] MEDS: FUROSEMIDE 20 MG TABLET PO SCH (13:20)
[2019-03-16] MEDS: RIVAROXABAN 10 MG TABLET PO SCH (17:21)
[2019-03-16] MEDS: LEVOFLOXACIN 500 MG/D5W RTU 500 MG/100 ML RTUPB IV SCH (17:21)
[2019-03-16] MEDS: ATORVASTATIN CALCIUM 20 MG TABLET PO SCH (21:41)
--- NOTE | 2019-03-16 22:16 | PDOC CONSULTATION ---
Consultation-Blank Consultation: [facility] cardiology CONSULTATION by Dr. Roseann Nayak. Patient seen at 2 PM on 03/16/2019. 60 minutes spent on this patient more than 50% of time spent in direct patient care. REASON FOR CONSULTATION: Patient with shortness of breath leg edema and is 3 of intermittent palpitations/tachycardia symptoms. CONSULT REQUESTING PHYSICIAN: Dr. Cecille Smallwood, covering for Dr. Steen. HISTORY PRESENT ILLNESS: Patient is a 53-year-old Afro-Italian female with known history of asthma/COPD and history of intermittent palpitations which she describes as rapid beating of the heart, and by prior records history of intermittent wide-complex tachycardia admitted with 3 to 4 days of increasing shortness of breath which started his dyspnea on exertion to rest dyspnea. She also has been having intermittent wheezing with cough productive of yellowish sputum. There is no fever chills or Reiger's. She also has intermittent episodes of rapid beating of the heart. This is been diagnosed on previous admissions as wide-complex tachycardia most likely atrial fibrillation with aberrancy, and the patient is on and the patient is on Xarelto. There is no syncope. There is no chest pain or discomfort. She also had leg swelling which is now resolved with the patient getting treatment in the hospital. There is no recurrence of TIA CVA symptoms. She had an echocardiogram in July 2018 which showed normal LV ejection fraction. Unable to calculate right ventricular systolic pressure due to insufficient TR jet. Past Medical History Cardiac Medical History: Reports: Congestive Heart Failure, Hyperlipidema. History of intermittent wide-complex tachycardia thought to be atrial fibrillation with aberrancy. Denies: Coronary Artery Disease, Myocardial Infarction, Hypertension Pulmonary Medical History: Reports: Asthma, Bronchitis, Chronic Obstructive Pulmonary Disease (COPD), Pneumonia Denies: Pulmonary embolism, Sleep Apnea, Tuberculosis Neurological Medical History: Denies: Seizures Endocrine Medical History: Malignancy Medical History: Reports: Breast Cancer GI Medical History: Reports: Gastroesophageal Reflux Disease, Hiatal Hernia Musculoskeltal Medical History: Denies: Arthritis Psychiatric Medical History: Denies: Dementia, Depression Hematology: Denies: Anemia Past Surgical History Past Surgical History: Reports: Mastectomy - bilat 2010, Orthopedic Surgery - left shoulder replacement 09/10 Denies: Hysterectomy, Pacemaker Social History Smoking Status: Former Smoker Frequency of Alcohol Use: None Hx Recreational Drug Use: No Drugs: None Hx Prescription Drug Abuse: No - Advance Directive Resuscitation Status: Full Code. She states her brother is a surrogate healthcare decision maker. Family History Family History: Hypertension Parental Family History Reviewed: Yes Children Family History Reviewed: Yes Sibling(s) Family History Reviewed.: Yes Medication/Allergy Home Medications: Albuterol Sulfate [Proair HFA Inhalation Aerosol 8.5 gm MDI] 2 puff IH QID 02/05/19 Anastrozole [Arimidex] 1 mg PO DAILY 02/05/19 Diltiazem HCl [Diltiazem 12Hr ER] 60 mg PO Q12 02/05/19 Fexofenadine HCl [Barbara] 180 mg PO DAILY 02/05/19 Fluticasone/Umeclidin/Vilanter [Trelegy 100-62.5-25 Mcg Ellipta 14 Dose/Dpi] 1 each IH DAILY 02/05/19 Ipratropium [place] [Atrovent 0.06% Nasal [place]] 2 spray NASL QID PRN 02/05/19 Lansoprazole [Prevacid] 30 mg PO DAILY 02/05/19 Linaclotide [Linzess 145 Mcg Capsule] 145 mcg PO DAILY 02/05/19 Magnesium Oxide [Mag-Ox 400 mg Tablet] 400 mg PO DAILY 02/05/19 Megestrol Acetate 400 mg PO DAILY 02/05/19 Montelukast Sodium [Singulair 10 mg Tablet] 10 mg PO DAILY 02/05/19 Multivit-Min/Iron/Folic/Lutein [Centrum Silver Women Tablet] 1 each PO DAILY 02/05/19 Rosuvastatin Calcium [Crestor 10 mg Tablet] 10 mg PO DAILY 02/05/19 Docusate Sodium [Colace 100 mg Capsule] 200 mg PO DAILY #60 capsule 02/08/19 Furosemide [Lasix 20 mg Tablet] 20 mg PO QAM PRN #30 tablet 02/08/19 Methylprednisolone [Medrol 4 mg Tablet] 20 mg PO ASDIR PRN #44 tablet 02/08/19 Rivaroxaban [Xarelto 10 mg Tablet] 20 mg PO WSUPPER #0 tablet 02/08/19 Allergies/Adverse Reactions: prednisone [Prednisone] Adverse Reaction (Intermediate, Verified 08/29/18 13:32) Review of Systems Constitutional: PRESENT: chills, weakness Ears: ABSENT: hearing changes Nose, Mouth, and Throat: PRESENT: sore throat Cardiovascular: PRESENT: dyspnea on exertion, edema Respiratory: PRESENT: cough, dyspnea, sputum Gastrointestinal: PRESENT: bloating, constipation. ABSENT: abdominal pain, diarrhea, hematemesis, hematochezia, nausea, vomiting Genitourinary: ABSENT: dysuria, hematuria Musculoskeletal: PRESENT: joint swelling - more of ankle joints Integumentary: ABSENT: rash, wounds Neurological: PRESENT: weakness - left side. ABSENT: abnormal gait, abnormal speech, confusion, dizziness, focal weakness, syncope Endocrine: ABSENT: cold intolerance, heat intolerance, polydipsia, polyuria Hematologic/Lymphatic: ABSENT: easy bleeding, easy bruising, lymphadenopathy. Allergic/Immunologic: ABSENT: seasonal rhinorrhea. Current Medications Anastrozole (Arimidex 1 Mg Tablet) 1 mg PO DAILY JEFF Stop: 04/15/19 09:59 Last Admin: 03/16/19 10:20 Dose: 1 mg Documented by: Atorvastatin Calcium (Lipitor 20 Mg Tablet) 20 mg PO QHS JEFF Stop: 04/14/19 21:59 Last Admin: 03/16/19 21:41 Dose: 20 mg Documented by: Diltiazem HCl (Cardizem 60 Mg Tablet) 60 mg PO Q12 JEFF Stop: 04/14/19 21:59 Last Admin: 03/16/19 21:41 Dose: 60 mg Documented by: Docusate Sodium (Colace 100 Mg Capsule) 200 mg PO DAILY JEFF Stop: 04/14/19 20:59 Last Admin: 03/16/19 10:20 Dose: 200 mg Documented by: Furosemide (Lasix 20 Mg Tablet) 20 mg PO DAILY JEFF Stop: 04/15/19 11:59 Last Admin: 03/16/19 13:20 Dose: 20 mg Documented by: Levofloxacin/Dextrose (Levaquin Rtu 500mg/D5w 100 Ml Premix) 500 mg in 100 mls @ 100 mls/hr IV QPM JEFF Stop: 03/23/19 17:59 Last Infusion: 03/16/19 18:30 Dose: Infused Documented by: Ipratropium [place] (Atrovent 0.06% Nasal [place]) 2 spray NASL QIDP PRN PRN Reason: FOR RUNNY NOSE Stop: 04/14/19 19:23 Levalbuterol HCl (Xopenex Neb 1.25 Mg/3 Ml Ampul) 1.25 mg NEB Q6HP PRN PRN Reason: WHEEZING Stop: 04/14/19 05:23 Last Admin: 03/16/19 20:11 Dose: 1.25 mg Documented by: Loratadine (Claritin 10 Mg Tablet) 10 mg PO DAILY JEFF Stop: 04/15/19 09:59 Last Admin: 03/16/19 10:20 Dose: 10 mg Documented by: Magnesium Oxide (Mag-Ox 400 Mg Tablet) 400 mg PO DAILY JEFF Stop: 04/15/19 09:59 Last Admin: 03/16/19 10:20 Dose: 400 mg Documented by: Methylprednisolone Sodium Succinate (Solu-Medrol Inj/Pf 125 Mg/2 Ml Sdv) 80 mg IV Q8 JEFF Stop: 04/15/19 13:59 Last Admin: 03/16/19 21:41 Dose: 80 mg Documented by: Montelukast Sodium (Singulair 10 Mg Tablet) 10 mg PO DAILY JEFF Stop: 04/15/19 09:59 Last Admin: 03/16/19 10:20 Dose: 10 mg Documented by: Multivitamins (Tab-A-Jamie (Multiple Vitamin) Tablet) 1 tab PO DAILY JEFF Stop: 04/15/19 09:59 Last Admin: 03/16/19 10:20 Dose: 1 tab Documented by: Patient Own Medication (Linaclotide) 145 mcg PO DAILY JEFF Stop: 04/14/19 19:29 Rivaroxaban (Xarelto 10 Mg Tablet) 20 mg PO WSUPPER JEFF Stop: 04/14/19 20:14 Last Admin: 03/16/19 17:21 Dose: 20 mg Documented by: Discontinued Medications Albuterol (Ventolin 0.083% Neb 2.5 Mg/3 Ml Ampul) 10 mg NEB NOW ONE Stop: 03/14/19 20:56 Last Admin: 03/14/19 21:16 Dose: 10 mg Documented by: Furosemide (Lasix 20 Mg Tablet) 20 mg PO QAMP PRN PRN Reason: for swelling or excess fluid Stop: 04/14/19 19:23 Levofloxacin/Dextrose (Levaquin Rtu 750 Mg/D5w 150 Ml Premix) 750 mg in 150 mls @ 100 mls/hr IV NOW ONE Stop: 03/14/19 22:26 Last Infusion: 03/15/19 04:23 Dose: Infused Documented by: Ipratropium [place] (Atrovent 0.02% Neb 0.5 Mg/2.5 Ml Ampul) 0.5 mg NEB Q15M PRN PRN Reason: FOR WHEEZING Last Admin: 03/14/19 21:41 Dose: 0.5 mg Documented by: Methylprednisolone Sodium Succinate (Solu-Medrol Inj/Pf 125 Mg/2 Ml Sdv) 125 mg IV NOW ONE Stop: 03/14/19 20:57 Last Admin: 03/14/19 22:53 Dose: 125 mg Documented by: Methylprednisolone Sodium Succinate (Solu-Medrol Inj/Pf 125 Mg/2 Ml Sdv) 125 mg IV Q8 JEFF Stop: 04/14/19 05:59 Last Admin: 03/16/19 05:30 Dose: 125 mg Documented by: Potassium Chloride (Klor-Con 10 Meq Capsule Er) 40 meq PO Q4 JEFF Stop: 03/15/19 22:01 Last Admin: 03/15/19 21:54 Dose: 40 meq Documented by: Potassium Chloride (Klor-Con 10 Meq Capsule Er) Confirm Administered Dose 10 meq PO .STK-MED ONE Stop: 03/15/19 20:16 Last Admin: 03/15/19 20:24 Dose: Not Given Documented by: PHYSICAL EXAMINATION: The patient is well-built and in mild respiratory distress due to shortness of breath with wheezing. There is no accessory muscle respiration use. Selected Entries 03/16/19 03/16/19 11:40 12:00 Temperature 98.3 F Temperature Oral Source Pulse Rate 82 Respiratory 17 Rate Blood Pressure 119/67 [Right Upper Arm] Blood Pressure 84 Mean [Right Upper Arm] Blood Pressure Sitting Position [Right Upper Arm] O2 Sat by Pulse 100 Oximetry Oxygen Delivery Nasal Cannula Method ( includes room air) Oxygen Flow 3 Rate HEAD: Is atraumatic normocephalic. EYES: Pupils equal round regular reactive light accommodation. Extraocular movements are normal. There is no conjunctival pallor. There is no scleral icterus. EARS: Tympanic membranes are intact. External auditory canals are clear. NOSE: There is no deviated nasal septum. There is no inflammation of these mucous membrane. MOUTH: Mucous memories of mouth are moist. Tongue is moist. There is no ulcers. THROAT: There is no redness of the oropharynx. There is no exudates. SKIN: There is no skin rashes. There is no particular ecchymosis. There is no skin lesions. NECK: Is supple. There is no JVD. Carotids are equal there is no bruit there is no lymphadenopathy. There is no goiter. There is no accessory muscle respiration use. Trachea central. CHEST: There is bilateral mastectomies. LUNGS: There is diminished air entry and prolonged expiration with bilateral wheezing and rhonchi. There is no rales of CHF. On percussion there is hyperresonance. On palpation there is no chest wall tenderness. HEART: S1-S2 is heard. There is no S3 gallop. There is no S4 gallop. There is systolic murmur in the left sternal border and the apex without radiation. There is no rub. ABDOMEN: Soft. Nontender. There is no hepatospleno megaly. Bowel sounds well heard. EXTREMITIES: Femorals are diminished. There is no femoral bruits. Leg pulses are well felt. There is no pedal edema present. There is no DVT or cellulitis. There is no cyanosis or clubbing. COMMUNITY RELATIONS SPECIALIST: The patient is conscious awake alert oriented x3. There is mild left hemiparesis. PSYCHIATRIC: The patient judgment insight are intact her affect is normal. Labs- Entire Visit 03/14/19 03/14/19 03/14/19 21:53 22:40 22:40 WBC 10.9 H RBC 3.73 Hgb 12.4 Hct 37.1 MCV 100 H MCH 33.2 MCHC 33.4 RDW 14.0 Plt Count 284 Lymph % (Auto) 33.9 [place] % (Auto) 8.2 Eos % (Auto) 0.4 Baso % (Auto) 1.2 Absolute Neuts (auto) 6.1 Absolute Lymphs (auto) 3.7 Absolute Monos (auto) 0.9 Absolute Eos (auto) 0.0 Absolute Basos (auto) 0.1 Seg Neutrophils % 56.3 Carbonic Acid 1.15 HCO3/H2CO3 Ratio 21:1 ABG pH 7.42 ABG pCO2 38.1 ABG pO2 115.0 H ABG HCO3 24.2 H ABG Total CO2 25.3 H ABG O2 Saturation 98.3 H ABG Base Excess -0.1 FiO2 28% Sodium 140.0 Potassium 3.4 L Chloride 104 Carbon Dioxide 29 Anion Gap 7 BUN 13 Creatinine 0.85 Est GFR ( Amer) > 60 Est GFR (Non-Af Amer) Est GFR (MDRD) Non-Af > 60 Glucose 98 Calcium 8.7 Magnesium 2.1 Total Bilirubin 0.2 Direct Bilirubin 0.1 Neonat Total Bilirubin Not Reportable Neonat Direct Bilirubin Not Reportable Neonat Indirect Bili Not Reportable AST 20 ALT 23 Alkaline Phosphatase 34 L Troponin I NT-Pro-B Natriuret Pep Total Protein 5.8 L Albumin 3.5 EGFR Urine Color Urine Appearance Urine pH Ur Specific [place] Urine Protein Urine Glucose (UA) Urine Ketones Urine Blood Urine Nitrite Urine Bilirubin Urine Urobilinogen Ur Leukocyte Esterase Urine WBC (Auto) Urine RBC (Auto) Urine Bacteria (Auto) Squamous Epi Cells Auto Urine Mucus (Auto) Urine Ascorbic Acid 03/14/19 03/15/19 03/15/19 22:40 19:15 19:58 WBC RBC Hgb Hct MCV MCH MCHC RDW Plt Count Lymph % (Auto) [place] % (Auto) Eos % (Auto) Baso % (Auto) Absolute Neuts (auto) Absolute Lymphs (auto) Absolute Monos (auto) Absolute Eos (auto) Absolute Basos (auto) Seg Neutrophils % Carbonic Acid HCO3/H2CO3 Ratio ABG pH ABG pCO2 ABG pO2 ABG HCO3 ABG Total CO2 ABG O2 Saturation ABG Base Excess FiO2 Sodium Potassium Chloride Carbon Dioxide Anion Gap BUN Creatinine Est GFR ( Amer) Est GFR (Non-Af Amer) Est GFR (MDRD) Non-Af Glucose Calcium Magnesium 2.4 H Total Bilirubin Direct Bilirubin Neonat Total Bilirubin Neonat Direct Bilirubin Neonat Indirect Bili AST ALT Alkaline Phosphatase Troponin I < 0.012 NT-Pro-B Natriuret Pep Total Protein Albumin EGFR Urine Color NEAL Urine Appearance TURBID Urine pH 5.0 Ur Specific [place] 1.040 Urine Protein 30 H Urine Glucose (UA) 150 H Urine Ketones TRACE H Urine Blood NEGATIVE Urine Nitrite NEGATIVE Urine Bilirubin NEGATIVE Urine Urobilinogen 2.0 H Ur Leukocyte Esterase NEGATIVE Urine WBC (Auto) 10 Urine RBC (Auto) 6 Urine Bacteria (Auto) 2+ Squamous Epi Cells Auto 7 Urine Mucus (Auto) MOD Urine Ascorbic Acid 40 H 03/16/19 03/16/19 03/16/19 08:50 09:05 10:39 WBC RBC Hgb Hct MCV MCH MCHC RDW Plt Count Lymph % (Auto) [place] % (Auto) Eos % (Auto) Baso % (Auto) Absolute Neuts (auto) Absolute Lymphs (auto) Absolute Monos (auto) Absolute Eos (auto) Absolute Basos (auto) Seg Neutrophils % Carbonic Acid 1.13 HCO3/H2CO3 Ratio 20:1 ABG pH 7.40 ABG pCO2 37.7 ABG pO2 100.1 H ABG HCO3 22.6 ABG Total CO2 23.8 ABG O2 Saturation 97.6 ABG Base Excess -1.9 FiO2 3L Sodium Cancelled 139.6 Potassium Cancelled 4.5 Chloride Cancelled 109 H Carbon Dioxide Cancelled 21 L Anion Gap Cancelled 10 BUN Cancelled 15 Creatinine Cancelled 0.64 Est GFR ( Amer) Cancelled > 60 Est GFR (Non-Af Amer) Cancelled Est GFR (MDRD) Non-Af Cancelled > 60 Glucose Cancelled 229 H Calcium Cancelled 9.1 Magnesium Total Bilirubin Direct Bilirubin Neonat Total Bilirubin Neonat Direct Bilirubin Neonat Indirect Bili AST ALT Alkaline Phosphatase Troponin I NT-Pro-B Natriuret Pep Total Protein Albumin EGFR Cancelled Urine Color Urine Appearance Urine pH Ur Specific [place] Urine Protein Urine Glucose (UA) Urine Ketones Urine Blood Urine Nitrite Urine Bilirubin Urine Urobilinogen Ur Leukocyte Esterase Urine WBC (Auto) Urine RBC (Auto) Urine Bacteria (Auto) Squamous Epi Cells Auto Urine Mucus (Auto) Urine Ascorbic Acid 03/16/19 10:39 WBC RBC Hgb Hct MCV MCH MCHC RDW Plt Count Lymph % (Auto) [place] % (Auto) Eos % (Auto) Baso % (Auto) Absolute Neuts (auto) Absolute Lymphs (auto) Absolute Monos (auto) Absolute Eos (auto) Absolute Basos (auto) Seg Neutrophils % Carbonic Acid HCO3/H2CO3 Ratio ABG pH ABG pCO2 ABG pO2 ABG HCO3 ABG Total CO2 ABG O2 Saturation ABG Base Excess FiO2 Sodium Potassium Chloride Carbon Dioxide Anion Gap BUN Creatinine Est GFR ( Amer) Est GFR (Non-Af Amer) Est GFR (MDRD) Non-Af Glucose Calcium Magnesium Total Bilirubin Direct Bilirubin Neonat Total Bilirubin Neonat Direct Bilirubin Neonat Indirect Bili AST ALT Alkaline Phosphatase Troponin I NT-Pro-B Natriuret Pep 154 Total Protein Albumin EGFR Urine Color Urine Appearance Urine pH Ur Specific [place] Urine Protein Urine Glucose (UA) Urine Ketones Urine Blood Urine Nitrite Urine Bilirubin Urine Urobilinogen Ur Leukocyte Esterase Urine WBC (Auto) Urine RBC (Auto) Urine Bacteria (Auto) Squamous Epi Cells Auto Urine Mucus (Auto) Urine Ascorbic Acid Chest X-Ray 03/14/19 20:50 IMPRESSION: Emphysema. Small left effusion and/or pleural thickening Chest X-Ray 03/16/19 00:00 IMPRESSION: COPD. Chronic left basilar pleuroparenchymal change. EKG: Shows sinus tachycardia. Minor nonspecific T changes anterolateral leads. Biatrial enlargement. Awaiting results of the patient's CTA of chest. IMPRESSION / RECOMMENDATIONS: 1. Acute exacerbation of COPD: Continue BiPAP, bronchodilators steroids and antibiotics, and oxygen. 2. Acute asthmatic attack. Continue steroids and bronchodilators. 3. Acute infective bronchitis: Continue bronchodilators and antibiotics and oxygen. 4. At present clinically no evidence of congestive heart failure. Her echo LV ejection fraction July 2018 was within normal limits. 5. History of paroxysmal ATRIAL fIBRILLATION. Continue Xarelto and AV blocking agents. 6. History of prior cerebrovascular accident: With no recurrence. 7. History of bilateral mastectomies for history of breast cancer: No recurrence. Medications reviewed. Management plan and medications regimen discussed with attending physician Dr. Smallwood. Medical decision making is of high complexity. 60 minutes spent on this patient more than 50% of time spent on by direct patient care.
[2019-03-17] MEDS: METHYLPREDNISOLONE INJ 125 MG/2 ML SDV IV SCH ×3 (05:07→21:03)
[2019-03-17 06:41] LABS: HEMATOCRIT 33.6 % (36.0-47.0); HEMOGLOBIN 11.1 g/dL (12.0-15.5); MEAN CORPUSCULAR HEMOGLOBIN 33.1 pg (27.0-33.4); MEAN CORPUSCULAR HGB CONC 32.9 g/dL (32.0-36.0); MEAN CORPUSCULAR VOLUME 100 fl (80-97); PLATELET COUNT 263 10^3/uL (150-450); RED BLOOD COUNT 3.35 10^6/uL (3.72-5.28); RED CELL DISTRIBUTION WIDTH 13.9 % (11.5-14.0); WHITE BLOOD COUNT 17.3 10^3/uL (4.0-10.5)
[2019-03-17 06:56] LABS: ANION GAP 5 (5-19); BLOOD UREA NITROGEN 15 mg/dL (7-20); CALCIUM 8.9 mg/dL (8.4-10.2); CARBON DIOXIDE 28 mmol/L (22-30); CHLORIDE 105 mmol/L (98-107); GLUCOSE 111 mg/dL (75-110); POTASSIUM 4.3 mmol/L (3.6-5.0)
[2019-03-17 07:21] LABS: ABSOLUTE MONOCYTES # (MANUAL) 0.5 10^3/uL (0.1-1.4); BASOPHILS % (MANUAL) 0 % (0-2); EOSINOPHILS % (MANUAL) 0 % (0-6); LYMPHOCYTES % (MANUAL) 6 % (13-45); MONOCYTES % (MANUAL) 3 % (3-13); SEGMENTED NEUTROPHILS % (MAN) 91 % (42-78); TOTAL CELLS COUNTED 100
[2019-03-17 07:22] LABS: PLATELET COMMENT ADEQUATE; POLYCHROMASIA SLIGHT
--- NOTE | 2019-03-17 10:00 | RADIOLOGY REPORT (SQ) ---
EXAM DESCRIPTION: CTA CHEST COMPLETED DATE/TIME: 03/16/2019 4:17 pm REASON FOR STUDY: hypoxia/sob COMPARISON: CT chest without contrast 01/18/2019 CT chest with contrast 08/16/2018 TECHNIQUE: CT scan of the chest performed using helical scanning technique with dynamic intravenous contrast injection. Images reviewed with lung, soft tissue and bone windows. Reconstructed coronal and sagittal MPR images reviewed. Additional 3 dimensional post-processing performed to develop Maximal Intensity Projection images (AZ P). All images stored on PACS. All CT scanners at this facility use dose modulation, iterative reconstruction, and/or weight based d osing when appropriate to reduce radiation dose to as low as reasonably achievable (ALARA). [facility]: Dose Right [facility]: CareDose [facility]: Dose Right [facility]: Teradose 4D [facility]: YouCastr CONTRAST TYPE AND DOSE: contrast/concentration: Isovue 350.00 mg/ml; Total Contrast Delivered: 51.0 ml; Total Saline Delivered: 77.0 ml Contrast bolus optimized for the pulmonary arteries and thoracic aorta. RENAL FUNCTION: Creatinine 0.85 RADIATION DOSE: CT Rad equipment meets quality standard of care and radiation dose reduction techniq ues were employed. CTDIvol: 9.9 - 15.2 mGy. DLP: 558 mGy-cm. . LIMITATIONS: None. FINDINGS: LUNGS AND PLEURA: Persistent nodule in the posterior aspect right upper lobe 9 mm in great est diameter unchanged from 01/18/2019 and 08/16/2018. Lungs exhibit mild to moderate changes of obstructive lung disease in the upper lobes bilaterally. N o acute infiltrates. No pleural effusion. No pneumothorax. AORTA AND GREAT VESSELS: No aneurysm. Contrast bolus not optimized for the aorta. HEART: No pericardial effusion. No significant coronary artery calcifications. PULMONARY ARTERIES: No emboli visualized in the main pulmonary arteries or the segmental branches. HILAR AND MEDIASTINAL STRUCTURES: No identified masses or abnormal nodes. HARDWARE: None in the chest. UPPER ABDOMEN: No significant findings. Limited exam. THYROID AND OTHER SOFT TISSUES: Post bilateral mastectomies BONES: No acute or significant finding. 3D MIPS: Confirm above findings. OTHER: No other significant finding. IMPRESSION: Obstructive lung disease. Stable 9 mm nodule posterior left upper lobe. No CT angio evidence of thoracic aortic dissection or acute pulmonary emboli COMMENT: Quality ID # [id number]: Final reports with documentation of one or more dose reduction techniques (e.g., Automated exposure control, adjustment of the mA and/or kV according to patient size, use of iterative reconstruction technique) TECHNICAL DOCUMENTATION: JOB ID: [id number] [employer]- All Rights Reserved Reading location - IP/workstation name: [email or web address]
--- NOTE | 2019-03-17 10:08 | PDOC PROGRESS REPORT ---
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 ABSENT: scleral icterus Ear exam: PRESENT: normal external ear exam Mouth exam: PRESENT: moist, tongue midline Neck exam: PRESENT: full ROM. ABSENT: carotid bruit, JVD, lymphadenopathy, thyromegaly Respiratory exam: PRESENT: clear to auscultation darinel Cardiovascular exam: PRESENT: RRR. ABSENT: diastolic murmur, rubs, systolic murmur Pulses: PRESENT: normal dorsalis pedis pul, +2 pedal pulses bilateral Vascular exam: PRESENT: normal capillary refill GI/Abdominal exam: PRESENT: normal bowel sounds, soft. ABSENT: distended, guarding, mass, organolmegaly, rebound, tenderness Rectal exam: PRESENT: deferred Musculoskeletal exam: PRESENT: ambulatory Neurological exam: PRESENT: alert, awake, oriented to person, oriented to place, oriented to time, oriented to situation, CN II-XII grossly intact. ABSENT: motor sensory deficit Psychiatric exam: PRESENT: appropriate affect, normal mood. ABSENT: homicidal ideation, suicidal ideation Skin exam: PRESENT: dry, intact, warm. ABSENT: cyanosis, rash Results Laboratory Results: 03/17/19 05:25 03/17/19 05:25 03/16/19 03/17/19 03/17/19 10:39 05:25 05:25 WBC 17.3 H RBC 3.35 L Hgb 11.1 L Hct 33.6 L MCV 100 H MCH 33.1 MCHC 32.9 RDW 13.9 Plt Count 263 Seg Neutrophils % Not Reportable Sodium 139.6 137.5 Potassium 4.5 4.3 Chloride 109 H 105 Carbon Dioxide 21 L 28 Anion Gap 10 5 BUN 15 15 Creatinine 0.64 0.73 Est GFR ( Amer) > 60 > 60 Glucose 229 H 111 H Calcium 9.1 8.9 03/14/19 03/16/19 22:40 10:39 Troponin I < 0.012 NT-Pro-B Natriuret Pep 154 Impressions: Chest X-Ray 03/16/19 00:00 IMPRESSION: COPD. Chronic left basilar pleuroparenchymal change. Chest/Abdomen CTA 03/16/19 00:00 IMPRESSION: Obstructive lung disease. Stable 9 mm nodule posterior left upper lobe. No CT angio evidence of thoracic aortic dissection or acute pulmonary emboli Assessment & Plan - Diagnosis (1) Shortness of breath Is this a current diagnosis for this admission?: Yes (2) History of breast cancer Is this a current diagnosis for this admission?: Yes (3) Congestive heart failure Qualifiers: Heart failure type: diastolic Is this a current diagnosis for this admission?: Yes (4) COPD exacerbation Is this a current diagnosis for this admission?: Yes (5) Cough Is this a current diagnosis for this admission?: Yes (6) Pulmonary nodule Is this a current diagnosis for this admission?: Yes - Time Time Spent with patient: 15-24 minutes Medications reviewed and adjusted accordingly: Yes Anticipated discharge: Home Within: Other - Plan Summary Plan Summary: Continues to IV antibiotics Continues to IV steroids Patient already seen oncology have appointment next week discussed the pulmonary nodules with the oncology
[2019-03-17] MEDS: BUSPIRONE HCL 10 MG TABLET PO SCH ×2 (10:09→21:03)
[2019-03-17] MEDS: ANASTROZOLE 1 MG TABLET PO SCH (10:09)
[2019-03-17] MEDS: LORATADINE 10 MG TABLET PO SCH (10:10)
[2019-03-17] MEDS: FUROSEMIDE 20 MG TABLET PO SCH (10:10)
[2019-03-17] MEDS: DOCUSATE SODIUM 100 MG CAPSULE PO SCH (10:10)
[2019-03-17] MEDS: MAGNESIUM OXIDE 400 MG TABLET PO SCH (10:10)
[2019-03-17] MEDS: DILTIAZEM HCL 60 MG TABLET PO SCH ×2 (10:10→21:03)
[2019-03-17] MEDS: MULTIVITAMIN TABLET PO SCH (10:10)
[2019-03-17] MEDS: MONTELUKAST SODIUM 10 MG TABLET PO SCH (10:10)
[2019-03-17] MEDS: LEVALBUTEROL HCL NEB 1.25 MG/3 ML AMPUL NEB PRN ×2 (14:28→20:08)
[2019-03-17] MEDS: RIVAROXABAN 10 MG TABLET PO SCH (17:24)
[2019-03-17] MEDS: LEVOFLOXACIN 500 MG/D5W RTU 500 MG/100 ML RTUPB IV SCH (17:24)
--- NOTE | 2019-03-17 20:22 | Progress Note ---
Provider Note Provider Note: CARDIOLOGY PROGRESS NOTE by Dr. Roseann Parrish on 03/17/2019. Subjective: The patient states her breathing is much improved. She is off the BiPAP. She is on nasal O2 3 L/min and with a walker oxygen saturation of 98%. She denies any chest pain discomfort. There is no PND orthopnea or leg edema. There is no palpitations there is no arrhythmia seen on the monitor. There is no recurrent TIA CVA symptoms. physical EXAMINATION: The patient is well-built well-nourished at present in no acute distress. Selected Entries 03/17/19 11:31 Temperature 98.3 F Temperature Oral Source Pulse Rate 102 H Respiratory 20 Rate Blood Pressure 107/64 Blood Pressure 78 Mean BP Location Right Arm BP Position Supine O2 Sat by Pulse 98 Oximetry Oxygen Flow 3.00 Rate Oxygen Delivery Nasal Cannula Method HEAD: Is atraumatic normocephalic. EYES: Pupils equal round regular reactive l ight accommodation. Extraocular movements are normal. There is no conjunctival pallor. There is no scleral icterus. EARS: Tympanic membranes are intact. External auditory canals are clear. NOSE: There is no deviated nasal septum. There is no inflammation of these mucous membrane. MOUTH: Mucous memories of mouth are moist. Tongue is moist. There is no ulcers. THROAT: There is no redness of the oropharynx. There is no exudates. SKIN: There is no skin rashes. There is no particular ecchymosis. There is no skin lesions. NECK: Is supple. There is no JVD. Carotids are equal there is no bruit there is no lymphadenopathy. There is no goiter. There is no accessory muscle respiration use. Trachea central. CHEST: There is bilateral mastectomies. LUNGS: There is diminished air entry and prolonged expiration with bilateral wheezing and rhonchi. There is no rales of CHF. On percussion there is hyperresonance. On palpation there is no chest wall tenderness. HEART: S1-S2 is heard. There is no S3 gallop. There is no S4 gallop. There is systolic murmur in the left sternal border and the apex without radiation. There is no rub. ABDOMEN: Soft. Nontender. There is no hepatospleno megaly. Bowel sounds well heard. EXTREMITIES: Femorals are diminished. There is no femoral bruits. Leg pulses are well felt. There is no pedal edema present. There is no DVT or cellulitis. There is no cyanosis or clubbing. HEALTH CONSULTANT: The patient is conscious awake alert oriented x3. There is mild left hemiparesis. PSYCHIATRIC: The patient judgment insight are intact her affect is normal. Labs- All tests 24 hr 03/17/19 03/17/19 05:25 05:25 WBC 17.3 H RBC 3.35 L Hgb 11.1 L Hct 33.6 L MCV 100 H MCH 33.1 MCHC 32.9 RDW 13.9 Plt Count 263 Lymph % (Auto) Not Reportable [place] % (Auto) Not Reportable Eos % (Auto) Not Reportable Baso % (Auto) Not Reportable Absolute Neuts (auto) Not Reportable Absolute Lymphs (auto) Not Reportable Absolute Monos (auto) Not Reportable Absolute Eos (auto) Not Reportable Absolute Basos (auto) Not Reportable Total Counted 100 Seg Neutrophils % Not Reportable Seg Neuts % (Manual) 91 H Lymphocytes % (Manual) 6 L Monocytes % (Manual) 3 Eosinophils % (Manual) 0 Basophils % (Manual) 0 Abs Neuts (Manual) 15.7 H Abs Lymphs (Manual) 1.0 Abs Monocytes (Manual) 0.5 Absolute Eos (Manual) 0.0 Abs Basophils (Manual) 0.0 Platelet Comment ADEQUATE Polychromasia SLIGHT Macrocytosis 1+ Sodium 137.5 Potassium 4.3 Chloride 105 Carbon Dioxide 28 Anion Gap 5 BUN 15 Creatinine 0.73 Est GFR ( Amer) > 60 Est GFR (MDRD) Non-Af > 60 Glucose 111 H Calcium 8.9 Chest X-Ray 03/14/19 20:50 IMPRESSION: Emphysema. Small left effusion and/or pleural thickening copyright 2011 [employer]- All Rights Reserved Chest X-Ray 03/16/19 00:00 IMPRESSION: COPD. Chronic left basilar pleuroparenchymal change. Chest/Abdomen CTA 03/16/19 00:00 IMPRESSION: Obstructive lung disease. Stable 9 mm nodule posterior left upper lobe. No CT angio evidence of thoracic aortic dissection or acute pulmonary emboli IMPRESSION / RECOMMENDATIONS: 1. Acute exacerbation of COPD: Continue BiPAP, bronchodilators steroids and antibiotics, and oxygen. 2. Acute asthmatic attack. Continue steroids and bronchodilators. 3. Acute infective bronchitis: Continue bronchodilators and antibiotics and oxygen. 4. At present clinically no evidence of congestive heart failure. Her echo LV ejection fraction July 2018 was within normal limits. 5. History of paroxysmal ATRIAL fIBRILLATION. Continue Xarelto and AV blocking agents. 6. History of prior cerebrovascular accident: With no recurrence. 7. History of bilateral mastectomies for history of breast cancer: No recurrence Medications reviewed. Management plan discussed with covering attending physician Dr. Smallwood. Medical decision making is of moderate complexity. 40 minutes spent on this patient with more than 50% time spent in direct patient care. Cardiac status is stable. Will sign off and follow the patient in the office, since the patient is asked to follow-up with me.
[2019-03-17] MEDS: ATORVASTATIN CALCIUM 20 MG TABLET PO SCH (21:03)
[2019-03-18] MEDS: METHYLPREDNISOLONE INJ 125 MG/2 ML SDV IV SCH ×2 (05:19→14:19)
[2019-03-18 06:18] LABS: HEMATOCRIT 36.2 % (36.0-47.0); HEMOGLOBIN 11.8 g/dL (12.0-15.5); MEAN CORPUSCULAR HEMOGLOBIN 32.8 pg (27.0-33.4); MEAN CORPUSCULAR HGB CONC 32.6 g/dL (32.0-36.0); MEAN CORPUSCULAR VOLUME 101 fl (80-97); PLATELET COUNT 272 10^3/uL (150-450); RED BLOOD COUNT 3.59 10^6/uL (3.72-5.28); RED CELL DISTRIBUTION WIDTH 14.3 % (11.5-14.0); WHITE BLOOD COUNT 14.9 10^3/uL (4.0-10.5)
[2019-03-18 06:29] LABS: ANION GAP 7 (5-19); BLOOD UREA NITROGEN 21 mg/dL (7-20); CALCIUM 8.6 mg/dL (8.4-10.2); CARBON DIOXIDE 27 mmol/L (22-30); CHLORIDE 105 mmol/L (98-107); GLUCOSE 104 mg/dL (75-110)
[2019-03-18 07:03] LABS: ABSOLUTE LYMPHOCYTES# (MANUAL) 1.8 10^3/uL (0.5-4.7); ABSOLUTE MONOCYTES # (MANUAL) 0.1 10^3/uL (0.1-1.4); BASOPHILS % (MANUAL) 0 % (0-2); EOSINOPHILS % (MANUAL) 0 % (0-6); LYMPHOCYTES % (MANUAL) 12 % (13-45); MONOCYTES % (MANUAL) 1 % (3-13); NUCLEATED RED BLOOD CELLS 1 /100 WBC (0); SEGMENTED NEUTROPHILS % (MAN) 87 % (42-78); TOTAL CELLS COUNTED 100
[2019-03-18 07:06] LABS: ANISOCYTOSIS SLIGHT; OVALOCYTES SLIGHT; PLATELET COMMENT ADEQUATE; POIKILOCYTOSIS SLIGHT; TARGET CELLS SLIGHT
[2019-03-18] MEDS: DOCUSATE SODIUM 100 MG CAPSULE PO SCH (09:02)
[2019-03-18] MEDS: MONTELUKAST SODIUM 10 MG TABLET PO SCH (09:02)
[2019-03-18] MEDS: ANASTROZOLE 1 MG TABLET PO SCH (09:02)
[2019-03-18] MEDS: DILTIAZEM HCL 60 MG TABLET PO SCH ×2 (09:02→21:43)
[2019-03-18] MEDS: BUSPIRONE HCL 10 MG TABLET PO SCH ×2 (09:03→21:43)
[2019-03-18] MEDS: LORATADINE 10 MG TABLET PO SCH (09:03)
[2019-03-18] MEDS: FUROSEMIDE 20 MG TABLET PO SCH (09:03)
[2019-03-18] MEDS: MULTIVITAMIN TABLET PO SCH (09:03)
[2019-03-18] MEDS: MAGNESIUM OXIDE 400 MG TABLET PO SCH (09:03)
[2019-03-18] MEDS: LEVOFLOXACIN 500 MG TABLET PO SCH (17:01)
[2019-03-18] MEDS: RIVAROXABAN 10 MG TABLET PO SCH (17:01)
[2019-03-18] MEDS: LEVALBUTEROL HCL NEB 1.25 MG/3 ML AMPUL NEB PRN (17:03)
--- NOTE | 2019-03-18 17:17 | PDOC CONSULTATION ---
Consultation Consult Date: 03/18/19 Attending physician:: LUKASZ ORNELAS Provider Consulted: YAHIR CASEY Consult reason:: Acute on chronic respiratory failure History of Present Illness Admission Date/PCP: 03/14/19 23:50 LUKASZ ORNELAS History of Present Illness: ARIELLA JUAREZ is a 53 year old female, presented with increased shortness of breath over the last 5 days subsequently made her come to the emergency room despite using her bronchodilators and supplemental oxygen as had previously been instructed she admitted to a cough that is nonproductive denied any hemoptysis fevers chills she admits to nausea but no vomiting or diarrhea she heard some wheezing. 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 Past Medical History Cardiac Medical History: Reports: Congestive Heart Failure, Hyperlipidema Denies: Coronary Artery Disease, Myocardial Infarction, Hypertension Pulmonary Medical History: Reports: Asthma, Bronchitis, Chronic Obstructive Pulmonary Disease (COPD), Pneumonia Denies: Respiratory Failure, Sleep Apnea, Tuberculosis EENT Medical History: Reports: None Neurological Medical History: Reports: None Denies: Seizures Endocrine Medical History: Renal/ Medical History: Reports: None Malignancy Medical History: Reports: Breast Cancer GI Medical History: Reports: Gastroesophageal Reflux Disease, Hiatal Hernia Musculoskeltal Medical History: Denies: Arthritis Skin Medical History: Reports: Psoriasis Psychiatric Medical History: Denies: Dementia, Depression Hematology: Denies: Anemia, Sickle Cell Disease Infectious Medical History: Denies: HIV Past Surgical History Past Surgical History: Reports: Mastectomy - bilat 2010, Orthopedic Surgery - left shoulder replacement 09/10 Denies: Hysterectomy, Pacemaker Social History Information Source: Patient, [facility] Records Smoking Status: Former Smoker Cigarettes Packs Per Day: 0.5 Number of Years Smokin Passive smoke exposure as: Both Frequency of Alcohol Use: None Hx Recreational Drug Use: No Drugs: None Hx Prescription Drug Abuse: No Do you have pets?: No Have you had any respiratory illnesses as a child?: No Have you been exposed to any sick contacts recently?: No Have you had any recent respiratory illnesses?: Yes Have you travelled outside of [place] in the past 12 months?: No - Advance Directive Resuscitation Status: Full Code Family History Family History: CAD, Hypertension Parental Family History Reviewed: Yes Children Family History Reviewed: Yes Sibling(s) Family History Reviewed.: Yes Medication/Allergy Home Medications: Albuterol Sulfate [Proair HFA Inhalation Aerosol 8.5 gm MDI] 2 puff IH QID 02/05/19 Anastrozole [Arimidex] 1 mg PO DAILY 02/05/19 Diltiazem HCl [Diltiazem 12Hr ER] 60 mg PO Q12 02/05/19 Fexofenadine HCl [Barbara] 180 mg PO DAILY 02/05/19 Fluticasone/Umeclidin/Vilanter [Trelegy 100-62.5-25 Mcg Ellipta 14 Dose/Dpi] 1 each IH DAILY 02/05/19 Ipratropium [place] [Atrovent 0.06% Nasal [place]] 2 spray NASL QID PRN 02/05/19 Lansoprazole [Prevacid] 30 mg PO DAILY 02/05/19 Linaclotide [Linzess 145 Mcg Capsule] 145 mcg PO DAILY 02/05/19 Magnesium Oxide [Mag-Ox 400 mg Tablet] 400 mg PO DAILY 02/05/19 Megestrol Acetate 400 mg PO DAILY 02/05/19 Montelukast Sodium [Singulair 10 mg Tablet] 10 mg PO DAILY 02/05/19 Multivit-Min/Iron/Folic/Lutein [Centrum Silver Women Tablet] 1 each PO DAILY 02/05/19 Rosuvastatin Calcium [Crestor 10 mg Tablet] 10 mg PO DAILY 02/05/19 Docusate Sodium [Colace 100 mg Capsule] 200 mg PO DAILY #60 capsule 02/08/19 Furosemide [Lasix 20 mg Tablet] 20 mg PO QAM PRN #30 tablet 02/08/19 Methylprednisolone [Medrol 4 mg Tablet] 20 mg PO ASDIR PRN #44 tablet 02/08/19 Rivaroxaban [Xarelto 10 mg Tablet] 20 mg PO WSUPPER #0 tablet 02/08/19 Allergies/Adverse Reactions: prednisone [Prednisone] Adverse Reaction (Intermediate, Verified 08/29/18 13:32) Review of Systems Constitutional: ABSENT: anorexia, chills, headache(s) Eyes: ABSENT: visual disturbances Ears: ABSENT: hearing changes Nose, Mouth, and Throat: ABSENT: mouth pain, sore throat Cardiovascular: PRESENT: chest pain, dyspnea on exertion. ABSENT: edema, palpitations Respiratory: PRESENT: cough, dyspnea. ABSENT: hemoptysis, sputum Gastrointestinal: ABSENT: abdominal pain, bloating, coffee ground emesis, constipation, diarrhea, dysphagia, heartburn, hematemesis, hematochezia, melena, nausea Genitourinary: PRESENT: nocturia. ABSENT: difficulty urinating, dysuria, hematuria Musculoskeletal: ABSENT: deformity, joint swelling Integumentary: ABSENT: pruritus, rash Neurological: ABSENT: abnormal gait, abnormal movements, abnormal speech, confusion, convulsions, frequent falls, lack of coordination, memory loss, numbness, paresthesias Psychiatric: ABSENT: hallucinations, homidical ideation, suicidal ideation Endocrine: ABSENT: heat intolerance, polydipsia, polyuria Hematologic/Lymphatic: ABSENT: easy bleeding, easy bruising, lymphadenopathy Allergic/Immunologic: ABSENT: seasonal rhinorrhea Physical Exam Vital Signs: Temp Pulse Resp BP Pulse Ox 98.4 F 123 H 20 126/73 H 95 03/18/19 09:22 03/18/19 09:50 03/18/19 09:50 03/18/19 09:22 03/18/19 09:50 Intake & Output 03/17/19 03/18/19 03/19/19 06:59 06:59 06:59 Intake Total 2040 1172 Output Total 250 Balance 1790 1172 Weight 60.8 kg 61.4 kg General appearance: PRESENT: no acute distress, cooperative, disheveled, well- developed, well-nourished Head exam: PRESENT: atraumatic, normocephalic Eye exam: PRESENT: conjunctiva pale, EOMI. ABSENT: nystagmus, periorbital swelling Mouth exam: PRESENT: moist, neck supple Neck exam: ABSENT: carotid bruit, full ROM, JVD, lymphadenopathy, meningismus, tenderness, thyromegaly, tracheal deviation, tracheostomy, other Respiratory exam: PRESENT: decreased breath sounds, prolonged expiratory phas, rhonchi, unlabored, wheezes. ABSENT: retraction, stridor, tachypnea Cardiovascular exam: PRESENT: RRR, +S1, +S2. ABSENT: tachycardia Pulses: PRESENT: normal radial pulses GI/Abdominal exam: PRESENT: soft. ABSENT: distended, guarding, mass, rebound, tenderness Extremities exam: ABSENT: calf tenderness, clubbing, joint swelling Musculoskeletal exam: ABSENT: deformity, dislocation Neurological exam: PRESENT: alert, awake Psychiatric exam: PRESENT: appropriate affect Skin exam: PRESENT: dry, warm Results Laboratory Results: 03/18/19 04:55 03/18/19 04:55 03/18/19 03/18/19 04:55 04:55 WBC 14.9 H RBC 3.59 L Hgb 11.8 L Hct 36.2 MCV 101 H MCH 32.8 MCHC 32.6 RDW 14.3 H Plt Count 272 Seg Neutrophils % Not Reportable Sodium 138.9 Potassium 4.0 Chloride 105 Carbon Dioxide 27 Anion Gap 7 BUN 21 H Creatinine 0.82 Est GFR ( Amer) > 60 Glucose 104 Calcium 8.6 03/14/19 03/16/19 22:40 10:39 Troponin I < 0.012 NT-Pro-B Natriuret Pep 154 Impressions: Chest X-Ray 03/16/19 00:00 IMPRESSION: COPD. Chronic left basilar pleuroparenchymal change. Chest/Abdomen CTA 03/16/19 00:00 IMPRESSION: Obstructive lung disease. Stable 9 mm nodule posterior left upper lobe. No CT angio evidence of thoracic aortic dissection or acute pulmonary emboli Assessment & Plan - Diagnosis (1) COPD exacerbation Is this a current diagnosis for this admission?: Yes Plan: Agree with therapy as outlined Generic Name Dose Route Start Last Admin Trade Name Freq PRN Reason Stop Dose Admin Methylprednisolone Sodium Succinate 40 mg 03/17/19 14:00 03/18/19 14:19 Solu-Medrol Inj/Pf 125 Mg/2 Ml Sdv IV 04/16/19 13:59 40 mg Q8 JEFF Levalbuterol HCl 1.25 mg 03/15/19 05:24 03/18/19 17:03 Xopenex Neb 1.25 Mg/3 Ml Ampul NEB 04/14/19 05:23 1.25 mg Q6HP PRN WHEEZING Ipratropium [place] 2 spray 03/15/19 19:24 Atrovent 0.06% Nasal [place] NASL 04/14/19 19:23 QIDP PRN FOR RUNNY NOSE Montelukast Sodium 10 mg 03/16/19 10:00 03/18/19 09:02 Singulair 10 Mg Tablet PO 04/15/19 09:59 10 mg DAILY JEFF Loratadine 10 mg 03/16/19 10:00 03/18/19 09:03 Claritin 10 Mg Tablet PO 04/15/19 09:59 10 mg DAILY JEFF Multivitamins 1 tab 03/16/19 10:00 03/18/19 09:03 Tab-A-Jamie (Multiple Vitamin) Tablet PO 04/15/19 09:59 1 tab DAILY JEFF (2) Congestive heart failure Qualifiers: Heart failure type: diastolic Is this a current diagnosis for this admission?: Yes Plan: Improving (3) Pulmonary nodule Is this a current diagnosis for this admission?: Yes Plan: Stable for the last 24 months (4) COPD with hypoxia Is this a current diagnosis for this admission?: Yes Plan: Supplemental oxygen as needed (5) Cigarette smoker one half pack a day or less Is this a current diagnosis for this admission?: Yes Plan: Stop smoking (6) Essential hypertension Is this a current diagnosis for this admission?: Yes Plan: Table at this time
--- NOTE | 2019-03-18 18:10 | PDOC PROGRESS REPORT ---
Subjective Progress Note for:: 03/18/19 Subjective:: Complain about distention of abdomen and oral thrush. No fever or chills. No chest pain. Reported better sleeping with use of CPAP machine. She admitted to snoring and waking herself up from sleep. Remain on IV Solu Medrol, bronchodilators, and Levofloxacin therapy. Interval consultants input appreciated. Reason For Visit: EXACERBATED COPD Physical Exam Vital Signs: Temp Pulse Resp BP Pulse Ox 98.4 F 96 16 126/73 H 97 03/18/19 09:22 03/18/19 17:03 03/18/19 17:03 03/18/19 14:33 03/18/19 17:03 Intake & Output 03/17/19 03/18/19 03/19/19 06:59 06:59 06:59 Intake Total 2040 1172 Output Total 250 Balance 1790 1172 Weight 60.8 kg 61.4 kg General appearance: PRESENT: mild distress - on supplemental oxygen via nasal cannula Head exam: PRESENT: atraumatic, normocephalic Eye exam: PRESENT: conjunctiva pink. ABSENT: scleral icterus Ear exam: PRESENT: normal external ear exam Mouth exam: PRESENT: moist - with dentures in in and presentce of oral thrush lesion on palate and tongue. Teeth exam: PRESENT: edentulous - dentures in use Respiratory exam: PRESENT: prolonged expiratory phas, rhonchi - end expiratory phase Cardiovascular exam: PRESENT: irregular rhythm, +S1, +S2. ABSENT: diastolic murmur, systolic murmur Vascular exam: ABSENT: pallor GI/Abdominal exam: PRESENT: distended, normal bowel sounds, soft. ABSENT: guarding, mass, organolmegaly, rebound, tenderness Extremities exam: ABSENT: pedal edema Musculoskeletal exam: PRESENT: deformity - with lymphedema swelling in upper extremity Neurological exam: PRESENT: alert, awake, oriented to person, oriented to place, oriented to time, oriented to situation, CN II-XII grossly intact. ABSENT: motor sensory deficit Psychiatric exam: PRESENT: appropriate affect, normal mood. ABSENT: homicidal ideation, suicidal ideation Skin exam: PRESENT: dry, warm Results Laboratory Results: 03/18/19 04:55 03/18/19 04:55 03/18/19 03/18/19 04:55 04:55 WBC 14.9 H RBC 3.59 L Hgb 11.8 L Hct 36.2 MCV 101 H MCH 32.8 MCHC 32.6 RDW 14.3 H Plt Count 272 Seg Neutrophils % Not Reportable Sodium 138.9 Potassium 4.0 Chloride 105 Carbon Dioxide 27 Anion Gap 7 BUN 21 H Creatinine 0.82 Est GFR ( Amer) > 60 Glucose 104 Calcium 8.6 03/14/19 03/16/19 22:40 10:39 Troponin I < 0.012 NT-Pro-B Natriuret Pep 154 Impressions: Chest X-Ray 03/16/19 00:00 IMPRESSION: COPD. Chronic left basilar pleuroparenchymal change. Chest/Abdomen CTA 03/16/19 00:00 IMPRESSION: Obstructive lung disease. Stable 9 mm nodule posterior left upper lobe. No CT angio evidence of thoracic aortic dissection or acute pulmonary emboli Assessment & Plan - Diagnosis (1) Acute exacerbation of COPD with asthma Is this a current diagnosis for this admission?: Yes Plan: D/C IV Solu Medrol. Start on Methyl Prednisone oral therapy. Continue bronchodilators therapy. (2) COPD with hypoxia Is this a current diagnosis for this admission?: Yes Plan: See attending physician orders for details about care plan. (3) Hypokalemia Is this a current diagnosis for this admission?: Yes Plan: See attending physician orders for details about care plan. (4) Essential hypertension Is this a current diagnosis for this admission?: Yes Plan: See attending physician orders for details about care plan. (5) HLD (hyperlipidemia) Qualifiers: Hyperlipidemia type: unspecified Qualified Code(s): E78.5 - Hyperlipidemia, unspecified Is this a current diagnosis for this admission?: Yes Plan: See attending physician orders for details about care plan. (6) CVA, old, hemiparesis Is this a current diagnosis for this admission?: Yes Plan: See attending physician orders for details about care plan. (7) GERD (gastroesophageal reflux disease) Qualifiers: Esophagitis presence: without esophagitis Qualified Code(s): K21.9 - Gastro-esophageal reflux disease without esophagitis Is this a current diagnosis for this admission?: Yes Plan: See attending physician orders for details about care plan. (8) Constipation Qualifiers: Constipation type: unspecified constipation type Qualified Code(s): K59.00 - Constipation, unspecified Is this a current diagnosis for this admission?: Yes Plan: See attending physician orders for details about care plan. (9) Sleep apnea, unspecified Qualifiers: Sleep apnea type: unspecified type Qualified Code(s): G47.30 - Sleep apnea, unspecified Is this a current diagnosis for this admission?: Yes Plan: See attending physician orders for details about care plan. (10) Thrush, oral Is this a current diagnosis for this admission?: Yes Plan: See attending physician orders for details about care plan. - Time Time Spent with patient: 25-34 minutes Medications reviewed and adjusted accordingly: Yes Anticipated discharge: Home with Homehealth Within: Other - Inpatient Certification Based on my medical assessment, after consideration of the patient's comorbidities, presenting symptoms, or acuity I expect that the services needed warrant INPATIENT care.: Yes I certify that my determination is in accordance with my understanding of Medicare's requirements for reasonable and necessary INPATIENT services [42 CFR 412.3e].: Yes Medical Necessity: Significant Comorbidiites Make Outpatient Treatment Too Risky, Need Close Monitoring Due to Risk of Patient Decompensation, Need For Continuous Telemetry Monitoring, Need for Nebulizer Therapy and Monitoring of Response, Risk of Complication if Not Cared For in Hospital, Risk of Diagnosis Which Will Require Inpatient Eval/Care/Monitoring Post Hospital Care: D/C Behavioral Health Rn Documentation - Plan Summary Plan Summary: See attending physician orders for details about care plan. Maintain on CPAP support while sleeping. Discussed with D/C land planner arrangement for CPAP machine at home upon discharge.
[2019-03-18] MEDS ORDERED: SIMETHICONE 80 MG TAB.CHEW PO PRN (18:14)
[2019-03-18] MEDS: METHYLPREDNISOLONE 4 MG TABLET PO SCH (19:59)
[2019-03-18] MEDS: CLOTRIMAZOLE 10 MG TROCHE PO SCH ×2 (19:59→23:46)
[2019-03-18] MEDS: ATORVASTATIN CALCIUM 20 MG TABLET PO SCH (21:43)
[2019-03-19] MEDS: CLOTRIMAZOLE 10 MG TROCHE PO SCH ×4 (03:09→18:05)
[2019-03-19 07:33] LABS: BLOOD UREA NITROGEN 20 mg/dL (7-20); CALCIUM 8.5 mg/dL (8.4-10.2); GLUCOSE 102 mg/dL (75-110); POTASSIUM 4.2 mmol/L (3.6-5.0)
[2019-03-19 07:49] LABS: ANION GAP 3 (5-19); CARBON DIOXIDE 29 mmol/L (22-30); CHLORIDE 104 mmol/L (98-107)
[2019-03-19] MEDS: LORATADINE 10 MG TABLET PO SCH (09:15)
[2019-03-19] MEDS: MONTELUKAST SODIUM 10 MG TABLET PO SCH (09:15)
[2019-03-19] MEDS: BUSPIRONE HCL 10 MG TABLET PO SCH (09:16)
[2019-03-19] MEDS: DOCUSATE SODIUM 100 MG CAPSULE PO SCH (09:16)
[2019-03-19] MEDS: MAGNESIUM OXIDE 400 MG TABLET PO SCH (09:16)
[2019-03-19] MEDS: MULTIVITAMIN TABLET PO SCH (09:17)
[2019-03-19] MEDS: ANASTROZOLE 1 MG TABLET PO SCH (09:17)
[2019-03-19] MEDS: DILTIAZEM HCL 60 MG TABLET PO SCH (09:18)
[2019-03-19] MEDS: FUROSEMIDE 20 MG TABLET PO SCH (09:20)
[2019-03-19] MEDS: METHYLPREDNISOLONE 4 MG TABLET PO SCH ×2 (09:21→18:05)
--- NOTE | 2019-03-19 11:28 | PDOC PROGRESS REPORT ---
Subjective Progress Note for:: 03/19/19 Subjective:: Continues to improve Reason For Visit: EXACERBATED COPD Physical Exam Vital Signs: Temp Pulse Resp BP Pulse Ox 98.1 F 81 15 105/54 L 99 03/19/19 03:48 03/19/19 03:48 03/19/19 03:53 03/19/19 03:48 03/19/19 03:48 Intake & Output 03/18/19 03/19/19 03/20/19 06:59 06:59 06:59 Intake Total 1172 1210 Balance 1172 1210 Weight 61.4 kg 65.3 kg General appearance: PRESENT: no acute distress, cooperative, disheveled, well- developed, well-nourished Head exam: PRESENT: atraumatic, normocephalic Eye exam: PRESENT: conjunctiva pale, EOMI. ABSENT: nystagmus Mouth exam: PRESENT: moist, neck supple, tongue midline Neck exam: ABSENT: carotid bruit, full ROM, JVD, lymphadenopathy, meningismus, tenderness, thyromegaly, tracheal deviation, tracheostomy, other Respiratory exam: PRESENT: decreased breath sounds, prolonged expiratory phas, rhonchi, symmetrical, unlabored. ABSENT: rales, retraction, stridor, tachypnea Cardiovascular exam: PRESENT: RRR, +S1, +S2. ABSENT: tachycardia Pulses: PRESENT: normal radial pulses GI/Abdominal exam: PRESENT: soft. ABSENT: distended, guarding, mass, rebound, tenderness Extremities exam: ABSENT: calf tenderness, clubbing, joint swelling Musculoskeletal exam: ABSENT: deformity, dislocation Neurological exam: PRESENT: alert, awake Psychiatric exam: PRESENT: appropriate affect Skin exam: PRESENT: dry, warm Results Laboratory Results: 03/18/19 04:55 03/19/19 06:55 03/19/19 06:55 Sodium 135.9 L Potassium 4.2 Chloride 104 Carbon Dioxide 29 Anion Gap 3 L BUN 20 Creatinine 0.74 Est GFR ( Amer) > 60 Glucose 102 Calcium 8.5 03/14/19 03/16/19 22:40 10:39 Troponin I < 0.012 NT-Pro-B Natriuret Pep 154 Impressions: Chest X-Ray 03/16/19 00:00 IMPRESSION: COPD. Chronic left basilar pleuroparenchymal change. Chest/Abdomen CTA 03/16/19 00:00 IMPRESSION: Obstructive lung disease. Stable 9 mm nodule posterior left upper lobe. No CT angio evidence of thoracic aortic dissection or acute pulmonary emboli Assessment & Plan - Diagnosis (1) COPD exacerbation Is this a current diagnosis for this admission?: Yes Plan: Continues to improve approaching baseline (2) Congestive heart failure Qualifiers: Heart failure type: diastolic Is this a current diagnosis for this admission?: Yes Plan: Improving (3) Pulmonary nodule Is this a current diagnosis for this admission?: Yes Plan: Stable for the last 24 months (4) COPD with hypoxia Is this a current diagnosis for this admission?: Yes Plan: Supplemental oxygen as needed (5) Cigarette smoker one half pack a day or less Is this a current diagnosis for this admission?: Yes Plan: Stop smoking (6) Essential hypertension Is this a current diagnosis for this admission?: Yes Plan: Table at this time
[2019-03-19] MEDS: LEVOFLOXACIN 500 MG TABLET PO SCH (18:04)
[2019-03-19] MEDS: RIVAROXABAN 10 MG TABLET PO SCH (18:05)
--- NOTE | 2019-03-19 18:19 | PDOC DISCHARGE SUMMARY ---
General - Admit/Disc Date/PCP Admission Date/Primary Care Provider: 03/14/19 23:50 LUKASZ ORNELAS Discharge Date: 03/19/19 - Discharge Diagnosis (1) Acute exacerbation of COPD with asthma Is this a current diagnosis for this admission?: Yes (2) COPD with hypoxia Is this a current diagnosis for this admission?: Yes (3) Hypokalemia Is this a current diagnosis for this admission?: Yes (4) Essential hypertension Is this a current diagnosis for this admission?: Yes (5) HLD (hyperlipidemia) Is this a current diagnosis for this admission?: Yes (6) CVA, old, hemiparesis Is this a current diagnosis for this admission?: Yes (7) GERD (gastroesophageal reflux disease) Is this a current diagnosis for this admission?: Yes (8) Constipation Is this a current diagnosis for this admission?: Yes (9) Sleep apnea, unspecified Is this a current diagnosis for this admission?: Yes (10) Thrush, oral Is this a current diagnosis for this admission?: Yes - Additional Information Resuscitation Status: Full Code Prescriptions: Levofloxacin [Levaquin 500 mg Tablet] 500 mg PO QPM #5 tablet Methylprednisolone [Medrol 4 mg Tablet] See Protocol PO BID #44 tablet Clotrimazole [Mycelex 10 mg Robb] 10 mg PO Q4A #50 robb Simethicone [Mylicon 80 mg Chewable Tablet] 120 mg PO QIDP PRN #60 tab.chew PRN Reason: Home Medications: Albuterol Sulfate [Proair HFA Inhalation Aerosol 8.5 gm MDI] 2 puff IH QID 02/05/19 Anastrozole [Arimidex] 1 mg PO DAILY 02/05/19 Diltiazem HCl [Diltiazem 12Hr ER] 60 mg PO Q12 02/05/19 Fexofenadine HCl [Barbara] 180 mg PO DAILY 02/05/19 Fluticasone/Umeclidin/Vilanter [Trelegy 100-62.5-25 Mcg Ellipta 14 Dose/Dpi] 1 e ach IH DAILY 02/05/19 Ipratropium [place] [Atrovent 0.06% Nasal [place]] 2 spray NASL QID PRN 02/05/19 Lansoprazole [Prevacid] 30 mg PO DAILY 02/05/19 Linaclotide [Linzess 145 Mcg Capsule] 145 mcg PO DAILY 02/05/19 Magnesium Oxide [Mag-Ox 400 mg Tablet] 400 mg PO DAILY 02/05/19 Megestrol Acetate 400 mg PO DAILY 02/05/19 Montelukast Sodium [Singulair 10 mg Tablet] 10 mg PO DAILY 02/05/19 Multivit-Min/Iron/Folic/Lutein [Centrum Silver Women Tablet] 1 each PO DAILY 02/05/19 Rosuvastatin Calcium [Crestor 10 mg Tablet] 10 mg PO DAILY 02/05/19 Docusate Sodium [Colace 100 mg Capsule] 200 mg PO DAILY #60 capsule 02/08/19 Furosemide [Lasix 20 mg Tablet] 20 mg PO QAM PRN #30 tablet 02/08/19 Methylprednisolone [Medrol 4 mg Tablet] 20 mg PO ASDIR PRN #44 tablet 02/08/19 Rivaroxaban [Xarelto 10 mg Tablet] 20 mg PO WSUPPER #0 tablet 02/08/19 Clotrimazole [Mycelex 10 mg Robb] 10 mg PO Q4A #50 robb 03/19/19 Levofloxacin [Levaquin 500 mg Tablet] 500 mg PO QPM #5 tablet 03/19/19 Methylprednisolone [Medrol 4 mg Tablet] See Protocol PO BID #44 tablet 03/19/19 Simethicone [Mylicon 80 mg Chewable Tablet] 120 mg PO QIDP PRN #60 tab.chew 03/19/19 History of Present Illness History of Present Illness: ARIELLA JUAREZ is a 53 year old female known to my practice who presented to the ED due to worsening difficulty with breathing. Patient reported limited benefit from use of her bronchodilators at home. She reported associated coughing with minimal sputum production and bilateral leg swelling. She denied any chest pain, palpitation, or irregular heart beats. No fever but did experience chills and slight sore throat. she denied associated nausea., vomiting or abdominal pain. No diarrhea but reported constipation and abdominal distention. She denied any hematuria, dysuria, or flank pain. her initial evaluation in the ED was significant for respiratory distress with audible wheezing, prolong expiratory breathing and decrease air flow. Despite several bronchodilators administration her respiratory distress did not improved. She was advised hospitalization for further evaluation and management. her morbidities include CHF, HTN, HLD, Asthma , COPD, GERD, old stroke with residual left sided hemiparesis, breast cancer s/p bilateral mastectomies. Hospital Course Hospital Course: She was admitted as a case of exacerbated COPD with hypoxemia with need for non- invasive ventilatory support. She was treated with IV Solu Medrol, bronchodilators, and IV levofloxacin coverage due to concern for possible bacterial bronchitis involvement due to her recurrent admission and continue cigarette smoking. She gradually improved and transition to oral therapy. She was seen in consultation by Dr. Hidalgo, rope rider. She remain on supplemental oxygen via nasal cannula support. She will be discharged home today on tapering dose of Methylprednisolone and Levofloxacin therapy. She will follow up with me in the office as instructed upon discharge. She will need outpatient sleep study in view of her reported snoring and apneic events. Physical Exam Vital Signs: Temp Pulse Resp BP Pulse Ox 98.3 F 93 18 122/76 99 03/19/19 16:52 03/19/19 16:52 03/19/19 16:52 03/19/19 16:52 03/19/19 16:52 Intake & Output 03/18/19 03/19/19 03/20/19 06:59 06:59 06:59 Intake Total 1172 1210 Balance 1172 1210 Weight 61.4 kg 65.3 kg Physical Exam: General appearance: PRESENT: mild distress - on supplemental oxygen via nasal cannula Head exam: PRESENT: atraumatic, normocephalic Eye exam: PRESENT: conjunctiva pink. ABSENT: pallor, scleral icterus Ear exam: PRESENT: normal external ear exam Mouth exam: PRESENT: moist - with dentures in in and presentce of oral thrush lesion on palate and tongue. Teeth exam: PRESENT: edentulous - dentures in use Respiratory exam: PRESENT: prolonged expiratory phas, rhonchi - end expiratory phase Cardiovascular exam: PRESENT: irregular rhythm, +S1, +S2. ABSENT: diastolic murmur, systolic murmur GI/Abdominal exam: PRESENT: distended, normal bowel sounds, soft. ABSENT: guarding, mass, organomegaly, rebound, tenderness Extremities exam: ABSENT: pedal edema Musculoskeletal exam: PRESENT: deformity - with lymphedema swelling in upper ex tremity Neurological exam: PRESENT: alert, awake, oriented to person, oriented to place, oriented to time, oriented to situation, CN II-XII grossly intact. ABSENT: motor sensory deficit Psychiatric exam: PRESENT: appropriate affect, normal mood. ABSENT: homicidal ideation, suicidal ideation Skin exam: PRESENT: dry, warm Results Laboratory Results: 03/18/19 04:55 03/19/19 06:55 03/19/19 06:55 Sodium 135.9 L Potassium 4.2 Chloride 104 Carbon Dioxide 29 Anion Gap 3 L BUN 20 Creatinine 0.74 Est GFR ( Amer) > 60 Glucose 102 Calcium 8.5 03/14/19 03/16/19 22:40 10:39 Troponin I < 0.012 NT-Pro-B Natriuret Pep 154 Impressions: Chest X-Ray 03/16/19 00:00 IMPRESSION: COPD. Chronic left basilar pleuroparenchymal change. Chest/Abdomen CTA 03/16/19 00:00 IMPRESSION: Obstructive lung disease. Stable 9 mm nodule posterior left upper lobe. No CT angio evidence of thoracic aortic dissection or acute pulmonary emboli Qualifiers PATIENT BEING DISCHARGED WITH ANY OF THE FOLLOWING DIAGNOSIS: No Acute Heart Failure - Is this a Heart Failure Patient?: No Plan Discharge Plan: D/C home today. Follow up in the office ass instructed upon discharge.
[2019-03-19 18:31] VITALS: BP 114/70
== END 2019-03-19 19:00 | disposition home or self-care (01) | DRG 191 ==
LOC: ER 20:16 → EH 23:50 → 4S 03-15 02:42
PROVIDERS: ADMIT Internal Medicine Geriatric Medicine; ATTEND Internal Medicine Geriatric Medicine
PROC: 5A09457 Assistance with Respiratory Ventilation, 24-96 Consecutive Hours, Continuous Positive Airway Pressure (ICD-10-PCS; principal; 2019-03-14)
DX: J44.1 Chronic obstructive pulmonary disease with (acute) exacerbation (principal); B37.0 Candidal stomatitis; I69.354 Hemiplegia and hemiparesis following cerebral infarction affecting left non-dominant side; I50.30 Unspecified diastolic (congestive) heart failure; E87.6 Hypokalemia; E78.5 Hyperlipidemia, unspecified; K21.9 Gastro-esophageal reflux disease without esophagitis; K59.00 Constipation, unspecified; G47.30 Sleep apnea, unspecified; I11.0 Hypertensive heart disease with heart failure; K44.9 Diaphragmatic hernia without obstruction or gangrene; L40.9 Psoriasis, unspecified; I48.0 Paroxysmal atrial fibrillation; R91.1 Solitary pulmonary nodule; R09.02 Hypoxemia; F17.210 Nicotine dependence, cigarettes, uncomplicated; Z96.612 Presence of left artificial shoulder joint; Z79.899 Other long term (current) drug therapy; Z85.3 Personal history of malignant neoplasm of breast; Z90.13 Acquired absence of bilateral breasts and nipples; Z88.8 Allergy status to other drugs, medicaments and biological substances; Z79.01 Long term (current) use of anticoagulants; Z99.81 Dependence on supplemental oxygen; Z95.0 Presence of cardiac pacemaker; Z82.49 Family history of ischemic heart disease and other diseases of the circulatory system
CPT/HCPCS: 36415; 36600; 71045; 71275; 80048; 80053; 81001; 82803; 83735; 83880; 84484; 85025; 87040; 93005; 93010; 94640; 94660; 96365; 96375; 99285; J1956; J2930; J3490; J7509

== ENCOUNTER 2019-04-02 11:09 | Inpatient (IN) | payer MEDICARE ==
[2019-04-02] MEDS ORDERED: LEVALBUTEROL HCL NEB 1.25 MG/3 ML AMPUL NEB ONE ×2 (11:26→16:41)
--- NOTE | 2019-04-02 11:28 | ER Document Report ---
ED Medical Screen (RME) - General Chief Complaint: Shortness Of Breath Stated Complaint: SHORTNESS OF BREATH Time Seen by Provider: 04/02/19 11:17 Primary Care Provider: LUKASZ ORNELAS MD [Primary Care Provider] - Follow up as needed Notes: Patient is a 53-year-old female who presents emergency department with a chief complaint of shortness of breath. She states that she was started on a diuretic and states that her pedal edema has not gotten any better. She is breathing treatments at home, and her last treatment was yesterday. She states that the swelling has been going on for the past week and she was recently hospitalized but has shown no improvement. Patient admits to smoking half a pack a day. She states that she decreased the amount of smoking she has done. Exam: Mild expiratory wheezes noted throughout all lung alonzo. Patient will be given Xopenex due to her heart rate of 130 upon my assessment. I have greeted and performed a rapid initial assessment of this patient. A comprehensive ED assessment and evaluation of the patient, analysis of test results and completion of medical decision making process will be conducted by an additional ED providers. TRAVEL OUTSIDE OF THE [place] IN LAST 30 DAYS: No - Related Data Allergies/Adverse Reactions: prednisone [Prednisone] Adverse Reaction (Intermediate, Verified 04/02/19 11:17) Past Medical History - Past Medical History Cardiac Medical History: Reports: Hx Congestive Heart Failure, Hx Hyperchol esterolemia Denies: Hx Coronary Artery Disease, Hx Heart Attack, Hx Hypertension Pulmonary Medical History: Reports: Hx Asthma, Hx Bronchitis, Hx COPD, Hx Pneumonia Denies: Hx Respiratory Failure, Hx Sleep Apnea, Hx Tuberculosis Neurological Medical History: Reports: Hx Cerebrovascular Accident - WEAKNESS ON LEFT SIDE. Denies: Hx Seizures, Hx Parkinson's Disease Endocrine Medical History: Renal/ Medical History: Reports: Hx Ovarian Cysts. Denies: Hx Peritoneal Dialysis Malignancy Medical History: Reports: Hx Breast Cancer GI Medical History: Reports: Hx Gastroesophageal Reflux Disease, Hx Hiatal Hernia Musculoskeltal Medical History: Denies Hx Arthritis, Denies Hx Multiple Sclerosis, Denies Hx Systemic Lupus Erythematosus Skin Medical History: Reports Hx Psoriasis Psychiatric Medical History: Denies: Hx Dementia, Hx Depression Infectious Medical History: Denies: Hx HIV Past Surgical History: Reports: Hx Mastectomy - bilat 2010, Hx Orthopedic Surgery - left shoulder replacement 09/10. Denies: Hx Hysterectomy, Hx Pacemaker - Immunizations Immunizations up to date: Yes Hx Diphtheria, Pertussis, Tetanus Vaccination: No Physical Exam - Vital signs Vitals: Temp Pulse BP Pulse Ox 98.5 F 121 H 109/63 97 04/02/19 11:14 04/02/19 11:14 04/02/19 11:14 04/02/19 11:14 Course - Vital Signs Vital signs: Temp Pulse Resp BP Pulse Ox 98.5 F 121 H 109/63 97 04/02/19 11:14 04/02/19 11:14 04/02/19 11:14 04/02/19 11:14 Doctor's Discharge - Discharge Referrals: LUKASZ ORNELAS MD [Primary Care Provider] - Follow up as needed
--- NOTE | 2019-04-02 13:33 | EKG REPORT ---
SEVERITY:- ABNORMAL ECG - ECTOPIC ATRIAL TACHYCARDIA BORDERLINE T ABNORMALITIES, ANT-LAT LEADS ST ELEVATION LIKELY NORMAL VARIANT : Confirmed by: Harvinder Allison MD 02-Apr-2019 13:32:33
--- NOTE | 2019-04-02 13:42 | RADIOLOGY REPORT (SQ) ---
EXAM DESCRIPTION: CHEST SINGLE VIEW COMPLETED DATE/TIME: 04/02/2019 1:13 pm REASON FOR STUDY: shortness of breath COMPARISON: 03/16/2019 EXAM PARAMETERS: NUMBER OF VIEWS: One view. TECHNIQUE: Single frontal radiographic view of the chest acquired. RADIATION DOSE: NA LIMITATIONS: None. FINDINGS: LUNGS AND PLEURA: Hyperexpansion of the lungs. No infiltrate, effusion, or mass. MEDIASTINUM AND HILAR STRUCTURES: No masses. Contour normal. HEART AND VASCULAR STRUCTURES: Heart normal in size. Normal vasculature. BONES: No acute findings. HARDWARE: None in the chest. OTHER: No other significant finding. IMPRESSION: Chronic lung changes with no acute cardiopulmonary findings. TECHNICAL DOCUMENTATION: JOB ID: [id number] [employer]- All Rights Reserved Reading location - IP/workstation name: [email or web address]
[2019-04-02 14:26] LABS: ABSOLUTE BASOPHILS # (AUTO) 0.1 10^3/uL (0.0-0.2); ABSOLUTE LYMPHOCYTES (AUTO) 2.7 10^3/uL (0.5-4.7); ABSOLUTE MONOCYTES (AUTO) 0.5 10^3/uL (0.1-1.4); ABSOLUTE NEUT (AUTO) 5.5 10^3/uL (1.7-8.2); BASOPHILS % (AUTO) 0.9 % (0-2); EOSINOPHILS % (AUTO) 0.4 % (0-6); HEMATOCRIT 36.6 % (36.0-47.0); HEMOGLOBIN 12.1 g/dL (12.0-15.5); LYMPHOCYTES % (AUTO) 30.8 % (13-45); MEAN CORPUSCULAR VOLUME 100 fl (80-97); MONOCYTES % (AUTO) 5.6 % (3-13); PLATELET COUNT 254 10^3/uL (150-450); RED BLOOD COUNT 3.66 10^6/uL (3.72-5.28); SEGMENTED NEUTROPHILS % (AUTO) 62.3 % (42-78); TOTAL CELLS COUNTED % (AUTO) 100 %; WHITE BLOOD COUNT 8.9 10^3/uL (4.0-10.5)
[2019-04-02 14:30] LABS: VENOUS BLOOD BASE EXCESS 0.5 mmol/L; VENOUS BLOOD HCO3 25.6 mmol/L (20-32); VENOUS BLOOD PCO2 43.4 mmHg (35-63); VENOUS BLOOD PH 7.39 (7.30-7.42)
[2019-04-02 14:49] LABS: ALBUMIN 3.4 g/dL (3.5-5.0); ALKALINE PHOSPHATASE 37 U/L (38-126); ANION GAP 5 (5-19); ASPARTATE AMINO TRANSFERASE 20 U/L (14-36); BILIRUBIN,TOTAL 0.5 mg/dL (0.2-1.3); BLOOD UREA NITROGEN 9 mg/dL (7-20); CALCIUM 9.5 mg/dL (8.4-10.2); CARBON DIOXIDE 30 mmol/L (22-30); CHLORIDE 103 mmol/L (98-107); CREATINE KINASE 65 U/L (30-135); GLUCOSE 79 mg/dL (75-110); TOTAL PROTEIN 5.8 g/dL (6.3-8.2)
[2019-04-02 14:58] LABS: CREATINE KINASE MB 1.75 ng/mL (<4.55)
[2019-04-02 14:59] LABS: TROPONIN I < 0.012 ng/mL
--- NOTE | 2019-04-02 16:12 | ER Document Report ---
ED General - General Chief Complaint: Shortness Of Breath Stated Complaint: SHORTNESS OF BREATH Time Seen by Provider: 04/02/19 11:17 Primary Care Provider: LUKASZ ORNELAS MD [Primary Care Provider] - Follow up as needed TRAVEL OUTSIDE OF THE [place] IN LAST 30 DAYS: No - HPI Notes: Patient is a 53-year-old female presents emergency department for evaluation of difficulty breathing. She states is been going on for about a week. She also has pedal edema. She states she was treated for a COPD exacerbation, stopped her steroids yesterday, and really does not feel any improvement. She is gained about 5 pounds in the last week. She states she is taking her medications as prescribed. She describes a nonproductive cough, dyspnea on exertion. She also states her abdomen feels swollen. - Related Data Allergies/Adverse Reactions: prednisone [Prednisone] Adverse Reaction (Intermediate, Verified 04/02/19 11:17) Past Medical History - General Information source: Patient - Social History Smoking Status: Current Every Day Smoker Family History: CAD, Hypertension Patient has suicidal ideation: No Patient has homicidal ideation: No - Past Medical History Cardiac Medical History: Reports: Hx Congestive Heart Failure, Hx Hypercholesterolemia Denies: Hx Coronary Artery Disease, Hx Heart Attack, Hx Hypertension Pulmonary Medical History: Reports: Hx Asthma, Hx Bronchitis, Hx COPD, Hx Pneumonia Denies: Hx Respiratory Failure, Hx Sleep Apnea, Hx Tuberculosis Neurological Medical History: Reports: Hx Cerebrovascular Accident - WEAKNESS ON LEFT SIDE. Denies: Hx Seizures, Hx Parkinson's Disease Endocrine Medical History: Renal/ Medical History: Reports: Hx Ovarian Cysts. Denies: Hx Peritoneal Dialysis Malignancy Medical History: Reports: Hx Breast Cancer GI Medical History: Reports: Hx Gastroesophageal Reflux Disease, Hx Hiatal Hernia Musculoskeletal Medical History: Denies Hx Arthritis, Denies Hx Multiple Sclerosis, Denies Hx Systemic Lupus Erythematosus Skin Medical History: Reports Hx Psoriasis Psychiatric Medical History: Denies: Hx Dementia, Hx Depression Infectious Medical History: Denies: Hx HIV Past Surgical History: Reports: Hx Mastectomy - bilat 2010, Hx Orthopedic Surgery - left shoulder replacement 09/10. Denies: Hx Hysterectomy, Hx Pacemaker - Immunizations Immunizations up to date: Yes Hx Diphtheria, Pertussis, Tetanus Vaccination: No Hx Pneumococcal Vaccination: 06/26/11 Review of Systems - Review of Systems Constitutional: See HPI EENT: No symptoms reported Cardiovascular: No symptoms reported Respiratory: See HPI Gastrointestinal: No symptoms reported Genitourinary: No symptoms reported Musculoskeletal: See HPI Skin: No symptoms reported Neurological/Psychological: No symptoms reported Physical Exam - Vital signs Vitals: Temp Pulse BP Pulse Ox 98.5 F 121 H 109/63 97 04/02/19 11:14 04/02/19 11:14 04/02/19 11:14 04/02/19 11:14 - Notes Notes: Patient is a 53-year-old female with multiple medical issues presents emergency department evaluation. On initial evaluation she was tachycardic and had significant wheezing. She was given a breathing treatment, had some improvement. Still awaiting laboratory investigations at this time. The patient does have what appears to be a left pleural effusion, but this is unchanged from prior study. She does not have a significant leukocytosis. We will continue to monitor. Course - Re-evaluation Re-evalutation: 04/02/19 16:13 Patient is a 53-year-old female with multiple medical issues presents emergency department evaluation. On initial evaluation she was tachycardic and had significant wheezing. She was given a breathing treatment, had some improvement. Still awaiting laboratory investigations at this time. The patient does have what appears to be a left pleural effusion, but this is unchanged from prior study. She does not have a significant leukocytosis. We will continue to monitor. 04/02/19 16:42 Patient still feeling poorly. She is still tachycardic. She is given another breathing treatment, steroids. I spoke with Dr. Ornelas, he will admit the patient for further care. - Vital Signs Vital signs: Temp Pulse Resp BP Pulse Ox 98.5 F 121 H 23 H 115/75 99 04/02/19 11:14 04/02/19 11:14 04/02/19 14:11 04/02/19 14:11 04/02/19 14:13 - Laboratory Result Diagrams: 04/02/19 14:03 04/02/19 14:03 Laboratory results interpreted by me: 04/02/19 04/02/19 14:03 14:03 RBC 3.66 L MCV 100 H RDW 15.0 H Alkaline Phosphatase 37 L Total Protein 5.8 L Albumin 3.4 L - Diagnostic Test Radiology reviewed: Image reviewed, Reports reviewed Radiology results interpreted by me: 04/02/19 16:14 Chest X-Ray 04/02/19 11:26 IMPRESSION: Chronic lung changes with no acute cardiopulmonary findings. - EKG Interpretation by Me Additional EKG results interpreted by me: 04/02/19 16:21 Sinus tachycardia with a rate of 114 bpm. Normal axis. Nonspecific ST changes, difficult to interpret secondary to wandering baseline, but no significant change from prior study. Discharge - Discharge Clinical Impression: COPD exacerbation Condition: Stable Disposition: ADMITTED INPATIENT Admitting Provider: Celsa Unit Admitted: [facility] Referrals: LUKASZ ORNELAS MD [Primary Care Provider] - Follow up as needed
[2019-04-02] MEDS ORDERED: METHYLPREDNISOLONE INJ 125 MG/2 ML SDV IV ONE (16:41)
[2019-04-02] MEDS ORDERED: SIMETHICONE 80 MG TAB.CHEW PO PRN (18:54)
[2019-04-02] MEDS ORDERED: FUROSEMIDE 20 MG TABLET PO PRN (18:54)
[2019-04-02] MEDS ORDERED: IPRATROPIUM BROMIDE 0.06% NASAL SPRAY 15 ML NASL PRN (18:54)
[2019-04-02] MEDS ORDERED: PRAMOXINE HCL/MINERAL OIL/ZNOX OINT 28.3 GM PR PRN (19:26)
[2019-04-02] MEDS: DOCUSATE SODIUM 100 MG CAPSULE PO SCH (19:52)
[2019-04-02] MEDS: NORMAL SALINE 1000 ML 1,000 ML IV PRN (22:10)
[2019-04-02] MEDS: METHYLPREDNISOLONE INJ 125 MG/2 ML SDV IV SCH (22:29)
[2019-04-02] MEDS: ATORVASTATIN CALCIUM 20 MG TABLET PO SCH (22:29)
[2019-04-02] MEDS ORDERED: CLOTRIMAZOLE 10 MG TROCHE ONE (23:02)
[2019-04-02] MEDS: DILTIAZEM HCL 60 MG TABLET PO SCH (23:33)
[2019-04-02] MEDS: CLOTRIMAZOLE 10 MG TROCHE MM SCH (23:33)
[2019-04-03] MEDS: CLOTRIMAZOLE 10 MG TROCHE MM SCH ×6 (04:12→22:19)
[2019-04-03] MEDS: PANTOPRAZOLE SODIUM 40 MG TABLET.DR PO SCH (05:44)
[2019-04-03] MEDS: METHYLPREDNISOLONE INJ 125 MG/2 ML SDV IV SCH ×3 (05:45→22:19)
[2019-04-03] MEDS ORDERED: INFLUENZA QUAD (6MOS+) 2019-20 VAC 0.5 ML SYR IM ONE (08:00)
[2019-04-03] MEDS: DOCUSATE SODIUM 100 MG CAPSULE PO SCH (09:39)
[2019-04-03] MEDS: MONTELUKAST SODIUM 10 MG TABLET PO SCH (09:39)
[2019-04-03] MEDS: MAGNESIUM OXIDE 400 MG TABLET PO SCH (09:40)
[2019-04-03] MEDS: LORATADINE 10 MG TABLET PO SCH (09:40)
[2019-04-03] MEDS: MULTIVITAMIN TABLET PO SCH (09:40)
[2019-04-03] MEDS ORDERED: (PENDING PHARMACY ID) (Multivit-Min/Iron/Folic/Lutein [Centrum Silver Women Tablet] 1 EACH PO SCH (10:00)
[2019-04-03] MEDS ORDERED: (PENDING PHARMACY ID) (Linaclotide 145 MCG) PO SCH (10:00)
[2019-04-03] MEDS: ANASTROZOLE 1 MG TABLET PO SCH (10:14)
[2019-04-03] MEDS: DILTIAZEM HCL 60 MG TABLET PO SCH ×2 (10:18→22:19)
[2019-04-03] MEDS: LEVALBUTEROL HCL NEB 1.25 MG/3 ML AMPUL NEB PRN (10:36)
--- NOTE | 2019-04-03 14:25 | PDOC CONSULTATION ---
Consultation Consult Date: 04/03/19 Provider Consulted: JANINA RUSSELL Consult reason:: Hemorrhoids during defecation History of Present Illness Admission Date/PCP: 04/02/19 17:08 LUKASZ ORNELAS History of Present Illness: ARIELLA JUAREZ is a 53 year old female admitted for exacerbation of COPD, with a history of 2-week of constipation which has resolved today following the administration of Colace. She has passed a large amount of soft stools without blood. She reports that during the past few weeks she has noted the protrusion of rectal mucosa during defecation. The amount of rectal mucosa prolapsed was such that she became worried; however, she was able to reduce the prolapsed r ectal mucosa manually without difficulty. The patient denies any other gastrointestinal symptoms. She had a colonoscopy just more than a year ago which demonstrated diverticulosis without complications. Past Medical History Cardiac Medical History: Reports: Congestive Heart Failure, Hyperlipidema Denies: Coronary Artery Disease, Myocardial Infarction, Hypertension Pulmonary Medical History: Reports: Asthma, Bronchitis, Chronic Obstructive Pulmonary Disease (COPD), Pneumonia Denies: Respiratory Failure, Sleep Apnea, Tuberculosis Neurological Medical History: Denies: Seizures Endocrine Medical History: Malignancy Medical History: Reports: Breast Cancer GI Medical History: Reports: Gastroesophageal Reflux Disease, Hiatal Hernia Musculoskeltal Medical History: Denies: Arthritis Skin Medical History: Reports: Psoriasis Psychiatric Medical History: Denies: Dementia, Depression Hematology: Denies: Anemia, Sickle Cell Disease Infectious Medical History: Denies: HIV Past Surgical History Past Surgical History: Reports: Mastectomy - bilat 2010, Orthopedic Surgery - left shoulder replacement 09/10 Denies: Hysterectomy, Pacemaker Social History Smoking Status: Current Every Day Smoker Electronic Cigarette use?: No Frequency of Alcohol Use: None Hx Recreational Drug Use: No Drugs: None Hx Prescription Drug Abuse: No Family History Family History: Reviewed & Not Pertinent, CAD, Hypertension Parental Family History Reviewed: No Children Family History Reviewed: No Sibling(s) Family History Reviewed.: No Medication/Allergy Home Medications: Albuterol Sulfate [Albuterol Sulfate Hfa] 2 puff IH QID 04/02/19 Anastrozole [Arimidex 1 mg Tablet] 1 mg PO DAILY 04/02/19 Clotrimazole [Mycelex 10 Mg Rox] 10 mg MM Q4 MDD 5 TABLETS PER DAY 04/02/19 Diltiazem HCl [Cardizem 60 mg Tablet] 60 mg PO Q12 04/02/19 Docusate Sodium [Colace 100 mg Capsule] 200 mg PO DAILY 04/02/19 Fexofenadine HCl [Barbara] 180 mg PO DAILY 04/02/19 Fluticasone/Umeclidin/Vilanter [Trelegy 100-62.5-25 Mcg Ellipta 14 Dose/Dpi] 1 puff IH DAILY 04/02/19 Furosemide [Lasix 20 mg Tablet] 20 mg PO QAMP PRN 04/02/19 Ipratropium [place] [Atrovent 0.06% Nasal [place]] 2 spray NASL QIDP PRN 04/02/19 Lansoprazole [Prevacid] 30 mg PO DAILY 04/02/19 Linaclotide [Linzess 145 Mcg Capsule] 145 mcg PO DAILY 04/02/19 Magnesium Oxide [Mag-Ox 400 mg Tablet] 400 mg PO DAILY 04/02/19 Megestrol Acetate 400 mg PO DAILY 04/02/19 Montelukast Sodium [Singulair 10 mg Tablet] 10 mg PO DAILY 04/02/19 Multivit-Min/Iron/Folic/Lutein [Centrum Silver Women Tablet] 1 each PO DAILY 04/02/19 Rivaroxaban [Xarelto 10 mg Tablet] 10 mg PO QPM 04/02/19 Rosuvastatin Calcium [Crestor 10 mg Tablet] 10 mg PO DAILY 04/02/19 Simethicone [Mylicon 80 mg Chewable Tablet] 120 mg PO QIDP PRN 04/02/19 Allergies/Adverse Reactions: prednisone [Prednisone] Adverse Reaction (Intermediate, Verified 04/02/19 11:17) Physical Exam Vital Signs: Temp Pulse Resp BP Pulse Ox 98.1 F 115 H 18 119/61 96 04/03/19 08:36 04/03/19 10:30 04/03/19 10:30 04/03/19 08:36 04/03/19 10:30 Intake & Output 04/02/19 04/03/19 04/04/19 06:59 06:59 06:59 Weight 56.6 kg General appearance: PRESENT: no acute distress, thin Head exam: PRESENT: atraumatic Eye exam: PRESENT: EOMI, PERRLA Mouth exam: PRESENT: moist, neck supple Teeth exam: PRESENT: edentulous - He wears upper and lower dentures Neck exam: PRESENT: full ROM Respiratory exam: PRESENT: clear to auscultation darinel, decreased breath sounds Cardiovascular exam: PRESENT: RRR GI/Abdominal exam: PRESENT: distended - Tympanitic, hypoactive bowel sounds, soft, other - No tenderness, peritoneal signs, or guarding identified Rectal exam: PRESENT: decreased rectal tone, other - During squatting, the patient is able to reproduce prolapse of the rectal mucosa circumferentially a pproximately 1.5 cm in length, stools are noted Extremities exam: PRESENT: full ROM Musculoskeletal exam: PRESENT: full ROM Neurological exam: PRESENT: oriented to person, oriented to place Psychiatric exam: PRESENT: appropriate affect Skin exam: PRESENT: warm Results Laboratory Results: 04/02/19 14:03 04/02/19 14:03 04/02/19 04/02/19 04/02/19 14:03 14:03 14:05 WBC 8.9 RBC 3.66 L Hgb 12.1 Hct 36.6 MCV 100 H MCH 33.0 MCHC 33.0 RDW 15.0 H Plt Count 254 Seg Neutrophils % 62.3 VBG pH 7.39 VBG pCO2 43.4 VBG HCO3 25.6 VBG Base Excess 0.5 Sodium 137.7 Potassium 4.0 Chloride 103 Carbon Dioxide 30 Anion Gap 5 BUN 9 Creatinine 0.73 Est GFR ( Amer) > 60 Glucose 79 Calcium 9.5 Total Bilirubin 0.5 AST 20 Alkaline Phosphatase 37 L Total Protein 5.8 L Albumin 3.4 L 04/02/19 04/02/19 04/02/19 14:03 14:03 14:03 Creatine Kinase 65 CK-MB (CK-2) 1.75 Troponin I < 0.012 NT-Pro-B Natriuret Pep 97 Impressions: Chest X-Ray 04/02/19 11:26 IMPRESSION: Chronic lung changes with no acute cardiopulmonary findings. Assessment & Plan - Diagnosis (1) Rectal mucosa prolapse Is this a current diagnosis for this admission?: Yes - Plan Summary Plan Summary: Assessment: Constipation for 2 weeks, now resolved History of rectal mucosa prolapse identified by patient during defecation and reduced manually Rectal mucosa prolapse reproduced during during squatting; it is a circumfer ential and only measures 1.5 cm in thickness Currently, the patient has been admitted for COPD exacerbation and she is on IV steroids. Plan: No surgical intervention planned at this time for this small rectal prolapse which is reducible and occurs only during straining The rectal mucosa prolapse does not always require surgical intervention unless it becomes irreducible and/or is progresses to proctidentia (true full-thickness thickness rectal prolapse) Please have the patient follow-up with the surgical office 1 month after discharge for possible colonoscopy. Surgical repair of the mucosal prolapse is indicated only if it persists or becomes a concern for the patient. I will sign off, please call me with questions.
[2019-04-03] MEDS: RIVAROXABAN 10 MG TABLET PO SCH (17:37)
[2019-04-03] MEDS: ATORVASTATIN CALCIUM 20 MG TABLET PO SCH (22:19)
--- NOTE | 2019-04-03 23:44 | PDOC H&P ---
History of Present Illness Admission Date/PCP: 04/02/19 17:08 LUKASZ ORNELAS History of Present Illness: ARIELLA JUAREZ is a 53 year old female patient known to my practice who was recently discharged from this hospital following presentation with difficulty with breathing. Patient continue to smoke cigarette. She was discharged home on tapering dose of Methylprednisolone. She reported that her symptoms started yesterday after completion of the tapering dose therapy. She reported associated exertional dyspnea, nonproductive cough, coughing related chest discomfort, extremities swelling and feeling of worsening weakness. Patient reported associated abdominal distention and worsening protrusion from her anus. She reported prior diagnosis of hemorrhoid. She denied any active rectal bleeding, tarry or blood stool. No reported significant constipation or rectal pain. She denied any significant fever or chills. Her initial ED evaluation was significant for persistent audible wheezing and respiratory distress despite repeated treatment with bronchodilators. She was advised hospitalization for further treatment. Her morbidities include breast cancer s/p bilateral mastectomies, CHF, Hyperlipidemia, CVA with residual left side paresis, and GERD. Past Medical History Cardiac Medical History: Reports: Congestive Heart Failure, Hyperlipidema Denies: Coronary Artery Disease, Myocardial Infarction, Hypertension Pulmonary Medical History: Reports: Asthma, Bronchitis, Chronic Obstructive Pulmonary Disease (COPD), Pneumonia Denies: Respiratory Failure, Sleep Apnea, Tuberculosis Neurological Medical History: Denies: Seizures Endocrine Medical History: Malignancy Medical History: Reports: Breast Cancer GI Medical History: Reports: Gastroesophageal Reflux Disease, Hiatal Hernia Musculoskeltal Medical History: Denies: Arthritis Skin Medical History: Reports: Psoriasis Psychiatric Medical History: Denies: Dementia, Depression Hematology: Denies: Anemia, Sickle Cell Disease Infectious Medical History: Denies: HIV Past Surgical History Past Surgical History: Reports: Mastectomy - bilat 2010, Orthopedic Surgery - left shoulder replacement 09/10 Denies: Hysterectomy, Pacemaker Social History Smoking Status: Current Every Day Smoker Frequency of Alcohol Use: None Hx Recreational Drug Use: No Drugs: None Hx Prescription Drug Abuse: No - Advance Directive Resuscitation Status: Full Code Family History Family History: CAD, Hypertension Parental Family History Reviewed: Yes Children Family History Reviewed: Yes Sibling(s) Family History Reviewed.: Yes Medication/Allergy Home Medications: Albuterol Sulfate [Albuterol Sulfate Hfa] 2 puff IH QID 04/02/19 Anastrozole [Arimidex 1 mg Tablet] 1 mg PO DAILY 04/02/19 Clotrimazole [Mycelex 10 Mg Rox] 10 mg MM Q4 MDD 5 TABLETS PER DAY 04/02/19 Diltiazem HCl [Cardizem 60 mg Tablet] 60 mg PO Q12 04/02/19 Docusate Sodium [Colace 100 mg Capsule] 200 mg PO DAILY 04/02/19 Fexofenadine HCl [Barbara] 180 mg PO DAILY 04/02/19 Fluticasone/Umeclidin/Vilanter [Trelegy 100-62.5-25 Mcg Ellipta 14 Dose/Dpi] 1 puff IH DAILY 04/02/19 Furosemide [Lasix 20 mg Tablet] 20 mg PO QAMP PRN 04/02/19 Ipratropium [place] [Atrovent 0.06% Nasal [place]] 2 spray NASL QIDP PRN 04/02/19 Lansoprazole [Prevacid] 30 mg PO DAILY 04/02/19 Linaclotide [Linzess 145 Mcg Capsule] 145 mcg PO DAILY 04/02/19 Magnesium Oxide [Mag-Ox 400 mg Tablet] 400 mg PO DAILY 04/02/19 Megestrol Acetate 400 mg PO DAILY 04/02/19 Montelukast Sodium [Singulair 10 mg Tablet] 10 mg PO DAILY 04/02/19 Multivit-Min/Iron/Folic/Lutein [Centrum Silver Women Tablet] 1 each PO DAILY 04/02/19 Rivaroxaban [Xarelto 10 mg Tablet] 10 mg PO QPM 04/02/19 Rosuvastatin Calcium [Crestor 10 mg Tablet] 10 mg PO DAILY 04/02/19 Simethicone [Mylicon 80 mg Chewable Tablet] 120 mg PO QIDP PRN 04/02/19 Allergies/Adverse Reactions: prednisone [Prednisone] Adverse Reaction (Intermediate, Verified 04/02/19 11:17) Review of Systems Constitutional: PRESENT: fatigue, weakness. ABSENT: as per HPI, anorexia, chills, fever(s), headache(s), night sweats, weight gain, weight loss, other Eyes: ABSENT: visual disturbances Ears: ABSENT: hearing changes Nose, Mouth, and Throat: ABSENT: as per HPI, headache(s), mouth pain, sore throat, vertigo, other Cardiovascular: PRESENT: dyspnea on exertion Respiratory: PRESENT: cough, dyspnea Gastrointestinal: PRESENT: bloating, other - hemorrhoid Genitourinary: ABSENT: dysuria, hematuria Musculoskeletal: PRESENT: joint swelling Integumentary: ABSENT: rash, wounds Neurological: PRESENT: weakness - slight left sided weakness related to prior stroke Psychiatric: ABSENT: anxiety, depression, homidical ideation, suicidal ideation Endocrine: ABSENT: cold intolerance, heat intolerance, polydipsia, polyuria Hematologic/Lymphatic: ABSENT: easy bleeding, easy bruising, lymphadenopathy Allergic/Immunologic: ABSENT: seasonal rhinorrhea Physical Exam Vital Signs: Temp Pulse Resp BP Pulse Ox 98.5 F 121 H 23 H 115/75 99 04/02/19 11:14 04/02/19 11:14 04/02/19 14:11 04/02/19 14:11 04/02/19 14:13 Intake & Output 04/01/19 04/02/19 04/03/19 06:59 06:59 06:59 Weight 61.6 kg General appearance: PRESENT: mild distress - due to difficulty with bresathing on supplemental oxygen via nasal cannula Head exam: PRESENT: atraumatic, normocephalic Eye exam: PRESENT: conjunctiva pink, EOMI, PERRLA. ABSENT: scleral icterus Ear exam: PRESENT: normal external ear exam Mouth exam: PRESENT: moist Teeth exam: PRESENT: edentulous Neck exam: PRESENT: full ROM. ABSENT: carotid bruit, JVD, lymphadenopathy, thyromegaly Respiratory exam: PRESENT: decreased breath sounds, prolonged expiratory phas, rhonchi, tachypnea, wheezes Cardiovascular exam: PRESENT: +S1, +S2, tachycardia. ABSENT: diastolic murmur, systolic murmur Vascular exam: PRESENT: normal capillary refill. ABSENT: pallor GI/Abdominal exam: PRESENT: distended, normal bowel sounds, soft. ABSENT: guarding, hernia, mass, organolmegaly, tenderness Rectal exam: PRESENT: hemorrhoids Extremities exam: PRESENT: pedal edema - related to lymphedema from her bilateral mastectomies Musculoskeletal exam: PRESENT: normal inspection Neurological exam: PRESENT: alert, awake, oriented to person, oriented to place, oriented to time, oriented to situation, CN II-XII grossly intact. ABSENT: motor sensory deficit Psychiatric exam: PRESENT: appropriate affect, normal mood. ABSENT: homicidal ideation, suicidal ideation Skin exam: PRESENT: dry, warm Results Laboratory Results: 04/02/19 14:03 04/02/19 14:03 04/02/19 04/02/19 04/02/19 14:03 14:03 14:05 WBC 8.9 RBC 3.66 L Hgb 12.1 Hct 36.6 MCV 100 H MCH 33.0 MCHC 33.0 RDW 15.0 H Plt Count 254 Seg Neutrophils % 62.3 VBG pH 7.39 VBG pCO2 43.4 VBG HCO3 25.6 VBG Base Excess 0.5 Sodium 137.7 Potassium 4.0 Chloride 103 Carbon Dioxide 30 Anion Gap 5 BUN 9 Creatinine 0.73 Est GFR ( Amer) > 60 Glucose 79 Calcium 9.5 Total Bilirubin 0.5 AST 20 Alkaline Phosphatase 37 L Total Protein 5.8 L Albumin 3.4 L 04/02/19 04/02/19 04/02/19 14:03 14:03 14:03 Creatine Kinase 65 CK-MB (CK-2) 1.75 Troponin I < 0.012 NT-Pro-B Natriuret Pep 97 Impressions: Chest X-Ray 04/02/19 11:26 IMPRESSION: Chronic lung changes with no acute cardiopulmonary findings. Assessment & Plan - Diagnosis (1) COPD with acute exacerbation Is this a current diagnosis for this admission?: Yes Plan: See admitting attending physician orders for details about care plan. (2) Cigarette smoker one half pack a day or less Is this a current diagnosis for this admission?: Yes Plan: See admitting attending physician orders for details about care plan. (3) Essential hypertension Is this a current diagnosis for this admission?: Yes Plan: See admitting attending physician orders for details about care plan. (4) HLD (hyperlipidemia) Qualifiers: Hyperlipidemia type: unspecified Qualified Code(s): E78.5 - Hyperlipidemia, unspecified Is this a current diagnosis for this admission?: Yes Plan: See admitting attending physician orders for details about care plan. (5) GERD (gastroesophageal reflux disease) Qualifiers: Esophagitis presence: without esophagitis Qualified Code(s): K21.9 - Gastro-esophageal reflux disease without esophagitis Is this a current diagnosis for this admission?: Yes Plan: See admitting attending physician orders for details about care plan. (6) Constipation by delayed colonic transit Is this a current diagnosis for this admission?: Yes Plan: See admitting attending physician orders for details about care plan. (7) CVA, old, hemiparesis Is this a current diagnosis for this admission?: Yes Plan: See admitting attending physician orders for details about care plan. (8) Status post bilateral mastectomy Is this a current diagnosis for this admission?: Yes Plan: See admitting attending physician orders for details about care plan. (9) Lymphedema of upper extremity following lymphadenectomy Is this a current diagnosis for this admission?: Yes Plan: See admitting attending physician orders for details about care plan. - Time Time Spent: 50 to 70 Minutes Smoking Cessation Education: 3 to 10 minutes Medications reviewed and adjusted accordingly: Yes Anticipated discharge: Home Within: Other - Inpatient Certification Based on my medical assessment, after consideration of the patient's comorbidities, presenting symptoms, or acuity I expect that the services needed warrant INPATIENT care.: Yes I certify that my determination is in accordance with my understanding of Medicare's requirements for reasonable and necessary INPATIENT services [42 CFR 412.3e].: Yes Medical Necessity: Significant Comorbidiites Make Outpatient Treatment Too Risky, Need Close Monitoring Due to Risk of Patient Decompensation, Need For IV Fluids, Need For Continuous Telemetry Monitoring, Need for Nebulizer Therapy and Monitoring of Response, Risk of Complication if Not Cared For in Hospital, Risk of Diagnosis Which Will Require Inpatient Eval/Care/Monitoring Post Hospital Care: D/C Resident Care Manager Rn Documentation - Plan Summary Plan Summary: See admitting attending physician orders for details about care plan.
[2019-04-03] MEDS: NORMAL SALINE 1000 ML 1,000 ML IV PRN (23:56)
--- NOTE | 2019-04-04 00:25 | PDOC PROGRESS REPORT ---
Subjective Progress Note for:: 04/03/19 Subjective:: Patient reported some improvement in her breathing effort but still experience difficulty with breathing walking to bathroom in her assigned room. She denied any chest pain. Coughing less often but remain unproductive. No nausea, vomiting or abdominal pain. Surgical consult diagnosis and recommendations discussed with patient during this bedside evaluation today. Reason For Visit: EXACERBATION COPD,CURRENT SMOKER Physical Exam Vital Signs: Temp Pulse Resp BP Pulse Ox 98.3 F 110 H 16 119/60 99 04/03/19 15:30 04/03/19 15:30 04/03/19 15:30 04/03/19 15:30 04/03/19 15:30 Intake & Output 04/02/19 04/03/19 04/04/19 06:59 06:59 06:59 Intake Total 480 Balance 480 Weight 56.6 kg General appearance: PRESENT: mild distress - due to difficulty with breathing and remain o supplemental oxygen via nasal cannula Head exam: PRESENT: atraumatic, normocephalic Eye exam: PRESENT: conjunctiva pink. ABSENT: scleral icterus Ear exam: PRESENT: normal external ear exam Mouth exam: PRESENT: moist Teeth exam: PRESENT: edentulous Respiratory exam: PRESENT: decreased breath sounds - at lung bases, prolonged expiratory phas, rhonchi, wheezes Cardiovascular exam: PRESENT: +S1, +S2, tachycardia. ABSENT: diastolic murmur, systolic murmur GI/Abdominal exam: PRESENT: distended, normal bowel sounds, soft. ABSENT: guarding, mass, organolmegaly, rebound, tenderness Extremities exam: PRESENT: pedal edema - improving Musculoskeletal exam: PRESENT: normal inspection Neurological exam: PRESENT: alert, awake, oriented to person, oriented to place, oriented to time, oriented to situation, CN II-XII grossly intact. ABSENT: motor sensory deficit Psychiatric exam: PRESENT: anxious - due to ongoing medical issues Skin exam: PRESENT: dry, warm Results Laboratory Results: 04/02/19 14:03 04/02/19 14:03 04/02/19 04/02/19 04/02/19 14:03 14:03 14:03 Creatine Kinase 65 CK-MB (CK-2) 1.75 Troponin I < 0.012 NT-Pro-B Natriuret Pep 97 Impressions: Chest X-Ray 04/02/19 11:26 IMPRESSION: Chronic lung changes with no acute cardiopulmonary findings. Assessment & Plan - Diagnosis (1) COPD with acute exacerbation Is this a current diagnosis for this admission?: Yes Plan: Continue current medication management with adjustment of her current IV Methylprednisolone dosage. (2) Rectal mucosa prolapse Is this a current diagnosis for this admission?: Yes Plan: Surgicalist evaluation and recommendation appreciated. (3) Constipation by delayed colonic transit Is this a current diagnosis for this admission?: Yes Plan: Continue current medication management. Emphasized compliance with medication, dietary and lifestyle adjustment to improve constipation and limit worsening of her rectal prolapse. (4) Essential hypertension Is this a current diagnosis for this admission?: Yes Plan: Continue current medication and dietary restrictions management. (5) HLD (hyperlipidemia) Qualifiers: Hyperlipidemia type: unspecified Qualified Code(s): E78.5 - Hyperlipidemia, unspecified Is this a current diagnosis for this admission?: Yes Plan: Continue current medication and dietary restrictions management. (6) GERD (gastroesophageal reflux disease) Qualifiers: Esophagitis presence: without esophagitis Qualified Code(s): K21.9 - Gastro-esophageal reflux disease without esophagitis Is this a current diagnosis for this admission?: Yes Plan: Continue current medication and dietary restrictions management. (7) CVA, old, hemiparesis Is this a current diagnosis for this admission?: Yes Plan: Continue current medication management. (8) Status post bilateral mastectomy Is this a current diagnosis for this admission?: Yes Plan: Continue current medication management. (9) Lymphedema of upper extremity following lymphadenectomy Is this a current diagnosis for this admission?: Yes Plan: Continue current medication management. - Time Time Spent with patient: 25-34 minutes Medications reviewed and adjusted accordingly: Yes Anticipated discharge: Home with Homehealth Within: Other - Inpatient Certification Based on my medical assessment, after consideration of the patient's comorbidities, presenting symptoms, or acuity I expect that the services needed warrant INPATIENT care.: Yes I certify that my determination is in accordance with my understanding of [facility]'s requirements for reasonable and necessary INPATIENT services [42 CFR 412.3e].: Yes Medical Necessity: Significant Comorbidiites Make Outpatient Treatment Too Risky, Need Close Monitoring Due to Risk of Patient Decompensation, Need For IV Fluids, Need For Continuous Telemetry Monitoring, Need for Nebulizer Therapy and Monitoring of Response, Risk of Complication if Not Cared For in Hospital, Risk of Diagnosis Which Will Require Inpatient Eval/Care/Monitoring 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 Her acute illness overall prognosis is improving.
[2019-04-04] MEDS: CLOTRIMAZOLE 10 MG TROCHE MM SCH ×6 (03:14→22:02)
[2019-04-04] MEDS: METHYLPREDNISOLONE INJ 125 MG/2 ML SDV IV SCH ×3 (05:43→22:02)
[2019-04-04] MEDS: PANTOPRAZOLE SODIUM 40 MG TABLET.DR PO SCH (05:43)
[2019-04-04] MEDS: ANASTROZOLE 1 MG TABLET PO SCH (10:10)
[2019-04-04] MEDS: DOCUSATE SODIUM 100 MG CAPSULE PO SCH (10:10)
[2019-04-04] MEDS: MAGNESIUM OXIDE 400 MG TABLET PO SCH (10:10)
[2019-04-04] MEDS: MULTIVITAMIN TABLET PO SCH (10:10)
[2019-04-04] MEDS: MONTELUKAST SODIUM 10 MG TABLET PO SCH (10:10)
[2019-04-04] MEDS: LORATADINE 10 MG TABLET PO SCH (10:11)
[2019-04-04] MEDS: DILTIAZEM HCL 60 MG TABLET PO SCH ×4 (10:11→22:06)
[2019-04-04] MEDS: LEVALBUTEROL HCL NEB 1.25 MG/3 ML AMPUL NEB PRN (10:23)
--- NOTE | 2019-04-04 17:41 | PDOC PROGRESS REPORT ---
Subjective Progress Note for:: 04/04/19 Subjective:: Patient denied any chest pain. Her breathing is improving. No nausea, vomiting or abdominal pain. No fever or chills. Reason For Visit: EXACERBATION COPD,CURRENT SMOKER Physical Exam Vital Signs: Temp Pulse Resp BP Pulse Ox 98.6 F 111 H 18 115/60 97 04/04/19 12:18 04/04/19 14:00 04/04/19 12:18 04/04/19 12:18 04/04/19 12:18 Intake & Output 04/03/19 04/04/19 04/05/19 06:59 06:59 06:59 Intake Total 1480 360 Output Total 100 Balance 1380 360 Weight 56.6 kg 66 kg Physical Exam: General appearance: PRESENT: mild distress - due to difficulty with breathing Head exam: PRESENT: atraumatic, normocephalic Eye exam: PRESENT: conjunctiva pink. ABSENT: pallor, scleral icterus Ear exam: PRESENT: normal external ear exam Mouth exam: PRESENT: moist Teeth exam: PRESENT: edentulous Respiratory exam: PRESENT: decreased breath sounds - at lung bases, prolonged expiratory phase, minimal rhonchi Cardiovascular exam: PRESENT: +S1, +S2, tachycardia. ABSENT: diastolic murmur, systolic murmur GI/Abdominal exam: PRESENT: distended, normal bowel sounds, soft. ABSENT: guarding, mass, organomegaly, rebound, tenderness Extremities exam: PRESENT: pedal edema - improving Musculoskeletal exam: PRESENT: normal inspection Neurological exam: PRESENT: alert, awake, oriented to person, oriented to place, oriented to time, oriented to situation, CN II-XII grossly intact. ABSENT: motor sensory deficit Psychiatric exam: PRESENT: anxious - due to ongoing medical issues Skin exam: PRESENT: dry, warm Results Laboratory Results: 04/02/19 14:03 04/02/19 14:03 04/02/19 04/02/19 04/02/19 14:03 14:03 14:03 Creatine Kinase 65 CK-MB (CK-2) 1.75 Troponin I < 0.012 NT-Pro-B Natriuret Pep 97 Impressions: Chest X-Ray 04/02/19 11:26 IMPRESSION: Chronic lung changes with no acute cardiopulmonary findings. Assessment & Plan - Diagnosis (1) COPD with acute exacerbation Is this a current diagnosis for this admission?: Yes (2) Rectal mucosa prolapse Is this a current diagnosis for this admission?: Yes (3) Constipation by delayed colonic transit Is this a current diagnosis for this admission?: Yes (4) Essential hypertension Is this a current diagnosis for this admission?: Yes (5) HLD (hyperlipidemia) Qualifiers: Hyperlipidemia type: unspecified Qualified Code(s): E78.5 - Hyperlipidemia, unspecified Is this a current diagnosis for this admission?: Yes (6) GERD (gastroesophageal reflux disease) Qualifiers: Esophagitis presence: without esophagitis Qualified Code(s): K21.9 - Gastro-esophageal reflux disease without esophagitis Is this a current diagnosis for this admission?: Yes (7) CVA, old, hemiparesis Is this a current diagnosis for this admission?: Yes (8) Status post bilateral mastectomy Is this a current diagnosis for this admission?: Yes (9) Lymphedema of upper extremity following lymphadenectomy Is this a current diagnosis for this admission?: Yes - Time Time Spent with patient: 25-34 minutes Medications reviewed and adjusted accordingly: Yes Anticipated discharge: Home with Homehealth Within: Other - Inpatient Certification Based on my medical assessment, after consideration of the patient's comorbidities, presenting symptoms, or acuity I expect that the services needed warrant INPATIENT care.: Yes I certify that my determination is in accordance with my understanding of Medicare's requirements for reasonable and necessary INPATIENT services [42 CFR 412.3e].: Yes Medical Necessity: Significant Comorbidiites Make Outpatient Treatment Too Risky, Need Close Monitoring Due to Risk of Patient Decompensation, Need For IV Fluids, Need For Continuous Telemetry Monitoring, Need for Nebulizer Therapy and Monitoring of Response, Risk of Complication if Not Cared For in Hospital, Risk of Diagnosis Which Will Require Inpatient Eval/Care/Monitoring 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 Maintain on all other current medication management.
[2019-04-04] MEDS: RIVAROXABAN 10 MG TABLET PO SCH (18:17)
[2019-04-04] MEDS: ATORVASTATIN CALCIUM 20 MG TABLET PO SCH (22:02)
[2019-04-04] MEDS: NORMAL SALINE 1000 ML 1,000 ML IV PRN (22:03)
[2019-04-05] MEDS: CLOTRIMAZOLE 10 MG TROCHE MM SCH ×4 (02:24→14:17)
[2019-04-05] MEDS: METHYLPREDNISOLONE INJ 125 MG/2 ML SDV IV SCH ×2 (05:45→14:03)
[2019-04-05] MEDS: DILTIAZEM HCL 60 MG TABLET PO SCH ×2 (05:45→14:03)
[2019-04-05] MEDS: PANTOPRAZOLE SODIUM 40 MG TABLET.DR PO SCH (05:45)
[2019-04-05] MEDS ORDERED: HEPARIN SOD (PORCINE) 1,000 UNIT/ML 10 ML VIAL IV PRN (09:05)
[2019-04-05] MEDS ORDERED: HEPARIN SOD (PORCINE) 1,000 UNIT/ML 10 ML VIAL INJ ONE (09:15)
[2019-04-05] MEDS: DOCUSATE SODIUM 100 MG CAPSULE PO SCH (10:55)
[2019-04-05] MEDS: ANASTROZOLE 1 MG TABLET PO SCH (10:55)
[2019-04-05] MEDS: MONTELUKAST SODIUM 10 MG TABLET PO SCH (10:55)
[2019-04-05] MEDS: MAGNESIUM OXIDE 400 MG TABLET PO SCH (10:55)
[2019-04-05] MEDS: MULTIVITAMIN TABLET PO SCH (10:55)
[2019-04-05] MEDS: LORATADINE 10 MG TABLET PO SCH (10:55)
[2019-04-05 12:16] VITALS: BP 105/57
--- NOTE | 2019-04-05 16:39 | PDOC DISCHARGE SUMMARY ---
Impression - Admit/DC Date/PCP Admission Date/Primary Care Provider: 04/02/19 17:08 LUKASZ ORNELAS Discharge Date: 04/05/19 - Discharge Diagnosis (1) COPD with acute exacerbation Is this a current diagnosis for this admission?: Yes (2) Rectal mucosa prolapse Is this a current diagnosis for this admission?: Yes (3) Constipation by delayed colonic transit Is this a current diagnosis for this admission?: Yes (4) Essential hypertension Is this a current diagnosis for this admission?: Yes (5) HLD (hyperlipidemia) Is this a current diagnosis for this admission?: Yes (6) GERD (gastroesophageal reflux disease) Is this a current diagnosis for this admission?: Yes (7) CVA, old, hemiparesis Is this a current diagnosis for this admission?: Yes (8) Status post bilateral mastectomy Is this a current diagnosis for this admission?: Yes (9) Lymphedema of upper extremity following lymphadenectomy Is this a current diagnosis for this admission?: Yes - Assessment Summary: Patient was admitted for exacerbated COPD with persistent wheezing and expiratory rhonchi despite adequate bronchodilators administration while in the ED. She recurrently present with similar symptoms but continue to smoke cigarette despite counseling on the contributing factor of cigarette smoking to her health and high risk of readmission. She was managed with IV Solu Medrol and Xopenex bronchodilator therapy. She will be transition to oral Methylprednisolon e therapy and taper off gradually. - Additional Information Resuscitation Status: Full Code Referrals: LUKASZ ORNELAS MD [Primary Care Provider] - 04/11/19 10:00 am Prescriptions: Methylprednisolone [Medrol 4 mg Tablet] 4 mg PO ASDIR PRN #90 tablet PRN Reason: Home Medications: Albuterol Sulfate [Albuterol Sulfate Hfa] 2 puff IH QID 04/02/19 Anastrozole [Arimidex 1 mg Tablet] 1 mg PO DAILY 04/02/19 Clotrimazole [Mycelex 10 mg Rox] 10 mg MM Q4 MDD 5 TABLETS PER DAY 04/02/19 Docusate Sodium [Colace 100 mg Capsule] 200 mg PO DAILY 04/02/19 Fexofenadine HCl [Barbara] 180 mg PO DAILY 04/02/19 Fluticasone/Umeclidin/Vilanter [Trelegy 100-62.5-25 Mcg Ellipta 14 Dose/Dpi] 1 puff IH DAILY 04/02/19 Furosemide [Lasix 20 mg Tablet] 20 mg PO QAMP PRN 04/02/19 Ipratropium Borden [Atrovent 0.06% Nasal [place]] 2 spray NASL QIDP PRN 04/02/19 Lansoprazole [Prevacid] 30 mg PO DAILY 04/02/19 Linaclotide [Linzess 145 Mcg Capsule] 145 mcg PO DAILY 04/02/19 Magnesium Oxide [Mag-Ox 400 mg Tablet] 400 mg PO DAILY 04/02/19 Megestrol Acetate 400 mg PO DAILY 04/02/19 Montelukast Sodium [Singulair 10 mg Tablet] 10 mg PO DAILY 04/02/19 Multivit-Min/Iron/Folic/Lutein [Centrum Silver Women Tablet] 1 each PO DAILY 04/02/19 Rivaroxaban [Xarelto 10 mg Tablet] 10 mg PO QPM 04/02/19 Rosuvastatin Calcium [Crestor 10 mg Tablet] 10 mg PO DAILY 04/02/19 Simethicone [Mylicon 80 mg Chewable Tablet] 120 mg PO QIDP PRN 04/02/19 Verapamil HCl [Verapamil ER] 180 mg PO QPM 04/04/19 Methylprednisolone [Medrol 4 mg Tablet] 4 mg PO ASDIR PRN #90 tablet 04/05/19 History of Present Illiness History of Present Illness: ARIELLA JUAREZ is a 53 year old female patient known to my practice who was recently discharged from this hospital following presentation with difficulty with breathing. Patient continue to smoke cigarette. She was discharged home on tapering dose of Methylprednisolone. She reported that her symptoms started yesterday after completion of the tapering dose therapy. She reported associated exertional dyspnea, nonproductive cough, coughing related chest discomfort, extremities swelling and feeling of worsening weakness. Patient reported associated abdominal distention and worsening protrusion from her anus. She r eported prior diagnosis of hemorrhoid. She denied any active rectal bleeding, tarry or blood stool. No reported significant constipation or rectal pain. She denied any significant fever or chills. Her initial ED evaluation was significant for persistent audible wheezing and respiratory distress despite repeated treatment with bronchodilators. She was advised hospitalization for further treatment. Her morbidities include CHF, Hyperlipidemia, CVA with residual left side paresis, GERD, and breast cancer s/p bilateral mastectomies, Hospital Course Hospital Course: She did improve and eventually transition to oral Methylprednisolone therapy upon discharge. Due to her continue cigarette smoking her risk of readmission remain high. She will follow up with me in the office as instructed upon discharge.. Physical Exam Vital Signs: Temp Pulse Resp BP Pulse Ox 98.4 F 94 18 105/57 L 97 04/05/19 08:40 04/05/19 12:44 04/05/19 12:44 04/05/19 08:40 04/05/19 12:44 Intake & Output 04/04/19 04/05/19 04/06/19 06:59 06:59 06:59 Intake Total 1480 1800 Output Total 100 Balance 1380 1800 Weight 66 kg 65.8 kg General appearance: PRESENT: mild distress - due to difficulty with breathing Head exam: PRESENT: atraumatic, normocephalic Eye exam: PRESENT: conjunctiva pink. ABSENT: pallor, scleral icterus Ear exam: PRESENT: normal external ear exam Mouth exam: PRESENT: moist Teeth exam: PRESENT: edentulous Respiratory exam: PRESENT: decreased breath sounds - at lung bases, minimal rhonchi Cardiovascular exam: PRESENT: +S1, +S2, tachycardia. ABSENT: diastolic murmur, systolic murmur GI/Abdominal exam: PRESENT: distended, normal bowel sounds, soft. ABSENT: guarding, mass, organomegaly, rebound, tenderness Extremities exam: PRESENT: pedal edema - improving Musculoskeletal exam: PRESENT: normal inspection Neurological exam: PRESENT: alert, awake, oriented to person, oriented to place, oriented to time, oriented to situation, CN II-XII grossly intact. ABSENT: motor sensory deficit Psychiatric exam: PRESENT: anxious - due to ongoing medical issues Skin exam: PRESENT: dry, warm Results Laboratory Results: WBC 8.9 10^3/uL (4.0-10.5) 04/02/19 14:03 RBC 3.66 10^6/uL (3.72-5.28) L 04/02/19 14:03 Hgb 12.1 g/dL (12.0-15.5) 04/02/19 14:03 Hct 36.6 % (36.0-47.0) 04/02/19 14:03 MCV 100 fl (80-97) H 04/02/19 14:03 MCH 33.0 pg (27.0-33.4) 04/02/19 14:03 MCHC 33.0 g/dL (32.0-36.0) 04/02/19 14:03 RDW 15.0 % (11.5-14.0) H 04/02/19 14:03 Plt Count 254 10^3/uL (150-450) 04/02/19 14:03 Lymph % (Auto) 30.8 % (13-45) 04/02/19 14:03 Metcalfe % (Auto) 5.6 % (3-13) 04/02/19 14:03 Eos % (Auto) 0.4 % (0-6) 04/02/19 14:03 Baso % (Auto) 0.9 % (0-2) 04/02/19 14:03 Absolute Neuts (auto) 5.5 10^3/uL (1.7-8.2) 04/02/19 14:03 Absolute Lymphs (auto) 2.7 10^3/uL (0.5-4.7) 04/02/19 14:03 Absolute Monos (auto) 0.5 10^3/uL (0.1-1.4) 04/02/19 14:03 Absolute Eos (auto) 0.0 10^3/uL (0.0-0.6) 04/02/19 14:03 Absolute Basos (auto) 0.1 10^3/uL (0.0-0.2) 04/02/19 14:03 Seg Neutrophils % 62.3 % (42-78) 04/02/19 14:03 VBG pH 7.39 (7.30-7.42) 04/02/19 14:05 VBG pCO2 43.4 mmHg (35-63) 04/02/19 14:05 VBG HCO3 25.6 mmol/L (20-32) 04/02/19 14:05 VBG Base Excess 0.5 mmol/L 04/02/19 14:05 Sodium 137.7 mmol/L (137-145) 04/02/19 14:03 Potassium 4.0 mmol/L (3.6-5.0) 04/02/19 14:03 Chloride 103 mmol/L (98-107) 04/02/19 14:03 Carbon Dioxide 30 mmol/L (22-30) 04/02/19 14:03 Anion Gap 5 (5-19) 04/02/19 14:03 BUN 9 mg/dL (7-20) 04/02/19 14:03 Creatinine 0.73 mg/dL (0.52-1.25) 04/02/19 14:03 Est GFR ( Amer) > 60 (>60) 04/02/19 14:03 Est GFR (MDRD) Non-Af > 60 (>60) 04/02/19 14:03 Glucose 79 mg/dL (75-110) 04/02/19 14:03 Calcium 9.5 mg/dL (8.4-10.2) 04/02/19 14:03 Total Bilirubin 0.5 mg/dL (0.2-1.3) 04/02/19 14:03 Direct Bilirubin 0.0 mg/dL (0.0-0.4) 04/02/19 14:03 Neonat Total Bilirubin Not Reportable 04/02/19 14:03 Neonat Direct Bilirubin Not Reportable 04/02/19 14:03 Neonat Indirect Bili Not Reportable 04/02/19 14:03 AST 20 U/L (14-36) 04/02/19 14:03 ALT 28 U/L (<35) 04/02/19 14:03 Alkaline Phosphatase 37 U/L (38-126) L 04/02/19 14:03 Creatine Kinase 65 U/L (30-135) 04/02/19 14:03 CK-MB (CK-2) 1.75 ng/mL (<4.55) 04/02/19 14:03 Troponin I < 0.012 ng/mL 04/02/19 14:03 NT-Pro-B Natriuret Pep 97 pg/mL (5-900) 04/02/19 14:03 Total Protein 5.8 g/dL (6.3-8.2) L 04/02/19 14:03 Albumin 3.4 g/dL (3.5-5.0) L 04/02/19 14:03 04/02/19 04/02/19 14:03 14:03 CK-MB (CK-2) 1.75 Troponin I < 0.012 NT-Pro-B Natriuret Pep 97 Impressions: Chest X-Ray 04/02/19 11:26 IMPRESSION: Chronic lung changes with no acute cardiopulmonary findings. Plan Health Concerns: Continue cigarette smoking and increase risk for readmission. Plan of Treatment: D/C home today. Follow up in the office as instructed upon discharge. Goals: Smoking cessation and compliance with medication management. Time Spent: Less than 30 Minutes Stroke Is this a Stroke Patient?: No Acute Heart Failure - Is this a Heart Failure Patient?: No
== END 2019-04-05 17:42 | disposition home or self-care (01) | DRG 191 ==
LOC: ER 11:09 → EH 17:08 → 3S 21:40
PROVIDERS: ADMIT Internal Medicine Geriatric Medicine; ATTEND Internal Medicine Geriatric Medicine
DX: J44.1 Chronic obstructive pulmonary disease with (acute) exacerbation (principal); I69.354 Hemiplegia and hemiparesis following cerebral infarction affecting left non-dominant side; F17.210 Nicotine dependence, cigarettes, uncomplicated; Z90.13 Acquired absence of bilateral breasts and nipples; Z96.612 Presence of left artificial shoulder joint; K21.9 Gastro-esophageal reflux disease without esophagitis; L40.9 Psoriasis, unspecified; Z85.3 Personal history of malignant neoplasm of breast; I10 Essential (primary) hypertension; E78.5 Hyperlipidemia, unspecified; K59.01 Slow transit constipation; K62.3 Rectal prolapse; Z88.8 Allergy status to other drugs, medicaments and biological substances; Z23 Encounter for immunization
CPT/HCPCS: 36415; 71045; 80053; 82550; 82553; 82803; 83880; 84484; 85025; 90686; 93005; 93010; 94640; 96374; 99285; J2930; J3490; J7030

== ENCOUNTER 2019-04-25 04:46 | Inpatient (IN) | payer MEDICARE ==
[2019-04-25] MEDS ORDERED: IPRATROPIUM/ALBUTEROL 0.5-2.5 MG/3 ML AMPUL NEB ONE (04:57)
[2019-04-25] MEDS: ALBUTEROL SULFATE 0.083% NEB 2.5 MG/3 ML AMPUL NEB SCH (05:09)
[2019-04-25] MEDS ORDERED: METHYLPREDNISOLONE INJ 125 MG/2 ML SDV IV ONE (06:16)
--- NOTE | 2019-04-25 06:22 | ER Document Report ---
ED General - General Chief Complaint: Shortness Of Breath Stated Complaint: SHORTNESS OF BREATH,SWOLLEN FOOT Time Seen by Provider: 04/25/19 06:03 Primary Care Provider: LUKASZ ORNELAS MD [Primary Care Provider] - Follow up as needed TRAVEL OUTSIDE OF THE [place] IN LAST 30 DAYS: No - HPI Notes: Patient is a 64-year-old female with an extensive medical history who comes in the emergency department for evaluation of shortness of breath. She states "Dr. iFgueroa told me I have a touch of pneumonia." She states he diagnosed her yesterday. She has pain in the left side of her chest that she describes as a soreness, typical of when she is had COPD exacerbations and pneumonia in the past. She is felt hot and cold, unaware of any romero fevers. No nausea or vomiting. She also states she is in swelling over the last 2 weeks. She believes is secondary to being on steroids. - Related Data Allergies/Adverse Reactions: prednisone [Prednisone] Adverse Reaction (Intermediate, Verified 04/02/19 11:17) Home Medications: List reviewed, please see note Past Medical History - General Information source: Patient - Social History Smoking Status: Current Every Day Smoker Frequency of alcohol use: Rare Drug Abuse: None Family History: CAD, Hypertension Patient has suicidal ideation: No Patient has homicidal ideation: No - Past Medical History Cardiac Medical History: Reports: Hx Congestive Heart Failure, Hx Hypercholesterolemia Denies: Hx Coronary Artery Disease, Hx Heart Attack, Hx Hypertension Pulmonary Medical History: Reports: Hx Asthma, Hx Bronchitis, Hx COPD, Hx Pneumonia Denies: Hx Respiratory Failure, Hx Sleep Apnea, Hx Tuberculosis Neurological Medical History: Reports: Hx Cerebrovascular Accident - WEAKNESS ON LEFT SIDE. Denies: Hx Seizures, Hx Parkinson's Disease Endocrine Medical History: Renal/ Medical History: Reports: Hx Ovarian Cysts. Denies: Hx Peritoneal Dialysis Malignancy Medical History: Reports: Hx Breast Cancer GI Medical History: Reports: Hx Gastroesophageal Reflux Disease, Hx Hiatal Hernia Musculoskeletal Medical History: Denies Hx Arthritis, Denies Hx Multiple Sclerosis, Denies Hx Systemic Lupus Erythematosus Skin Medical History: Reports Hx Psoriasis Psychiatric Medical History: Denies: Hx Dementia, Hx Depression Infectious Medical History: Denies: Hx HIV Past Surgical History: Reports: Hx Mastectomy - bilat 2010, Hx Orthopedic S urgery - left shoulder replacement 09/10. Denies: Hx Hysterectomy, Hx Pacemaker - Immunizations Immunizations up to date: Yes Hx Diphtheria, Pertussis, Tetanus Vaccination: No Hx Pneumococcal Vaccination: 06/26/11 Review of Systems - Review of Systems Constitutional: See HPI EENT: No symptoms reported Cardiovascular: See HPI Respiratory: See HPI Gastrointestinal: No symptoms reported Genitourinary: No symptoms reported Musculoskeletal: See HPI Skin: No symptoms reported Neurological/Psychological: No symptoms reported Physical Exam - Vital signs Vitals: Temp Pulse Resp BP Pulse Ox 98.1 F 130 H 28 H 129/99 H 97 04/25/19 05:00 04/25/19 05:00 04/25/19 05:00 04/25/19 05:00 04/25/19 05:00 - Notes Notes: This is a 54-year-old female who appears older than her stated age in no acute distress. She is resting comfortably in the bed when I enter the room. Respirations unlabored. Upon conversation, patient seems to have more difficulty breathing. Vital signs reviewed, please refer to chart. Head is normocephalic, atraumatic. Pupils equal round, reactive to light. Neck is supple without meningismus. Heart is regular rate and rhythm. Lungs reveal diminished expiratory breath sounds bilaterally with occasional wheeze. Abdomen is soft, nontender, normoactive bowel sounds throughout. Extremities without cyanosis, clubbing. Posterior calves are nontender. Peripheral pulses are equal. Skin is warm and dry. Patient is awake, alert, cooperative with examiner. Course - Re-evaluation Re-evalutation: 04/25/19 06:20 Patient presents to the emergency department for evaluation. She is tachypneic and tachycardic, but she is oxygenating well. Laboratory investigations, breathing treatment, Solu-Medrol, chest x-ray obtained. We will continue to monitor. 04/25/19 09:04 Patient remains tachycardic, mildly tachypneic. Her lung exam is slightly improved. She is given Solu-Medrol, Levaquin for COPD exacerbation. I spoke with Dr. Ornelas, he will admit the patient for further care. - Vital Signs Vital signs: Temp Pulse Resp BP Pulse Ox 98.3 F 130 H 19 147/105 H 100 04/25/19 07:05 04/25/19 05:00 04/25/19 08:01 04/25/19 08:01 04/25/19 08:01 - Laboratory Result Diagrams: 04/25/19 06:32 04/25/19 06:32 Laboratory results interpreted by me: 04/25/19 04/25/19 04/25/19 06:32 06:32 08:33 MCV 102 H MCH 33.5 H RDW 14.5 H Potassium 3.3 L Chloride 111 H Urine Protein 100 H Urine Ketones TRACE H Urine Blood MODERATE H Urine Urobilinogen 2.0 H - Diagnostic Test Radiology reviewed: Image reviewed, Reports reviewed Radiology results interpreted by me: 04/25/19 09:03 Chest X-Ray 04/25/19 04:58 IMPRESSION: COPD. Tiny left effusion. copyright 2010 [employer]- All Rights Reserved - EKG Interpretation by Me Additional EKG results interpreted by me: 04/25/19 06:21 Sinus tachycardia with a rate of 120 bpm. Normal axis. Nonspecific ST changes, but no acute elevation concerning for infarction. No significant change in compared to prior study performed April 02, 2019. Discharge - Discharge Clinical Impression: COPD exacerbation, Tachycardia Condition: Stable Disposition: ADMITTED INPATIENT Admitting Provider: Celsa Unit Admitted: IMCU Referrals: LUKASZ ORNELAS MD [Primary Care Provider] - Follow up as needed
--- NOTE | 2019-04-25 06:45 | RADIOLOGY REPORT (SQ) ---
EXAM DESCRIPTION: XR CHEST 1 VIEW COMPLETED DATE/TME: 04/25/2019 04:58 CLINICAL HISTORY: 54 years, Female, cant breath COMPARISON: 04/02/2019 chest NUMBER OF VIEWS: 1 TECHNIQUE: Portable chest LIMITATIONS: None. FINDINGS: The heart size is normal. Stable postsurgical change. Osteopenia. Underlying COPD. Tiny left effusion. No pneumothorax IMPRESSION: COPD. Tiny left effusion. copyright 2010 [employer]- All Rights Reserved
[2019-04-25 06:59] LABS: ABSOLUTE BASOPHILS # (AUTO) 0.1 10^3/uL (0.0-0.2); ABSOLUTE EOSINOPHILS # (AUTO) 0.1 10^3/uL (0.0-0.6); ABSOLUTE LYMPHOCYTES (AUTO) 4.3 10^3/uL (0.5-4.7); ABSOLUTE MONOCYTES (AUTO) 0.8 10^3/uL (0.1-1.4); BASOPHILS % (AUTO) 0.9 % (0-2); EOSINOPHILS % (AUTO) 0.9 % (0-6); HEMATOCRIT 39.5 % (36.0-47.0); HEMOGLOBIN 12.9 g/dL (12.0-15.5); LYMPHOCYTES % (AUTO) 41.7 % (13-45); MEAN CORPUSCULAR HEMOGLOBIN 33.5 pg (27.0-33.4); MEAN CORPUSCULAR HGB CONC 32.8 g/dL (32.0-36.0); MEAN CORPUSCULAR VOLUME 102 fl (80-97); MONOCYTES % (AUTO) 7.8 % (3-13); PLATELET COUNT 264 10^3/uL (150-450); RED BLOOD COUNT 3.86 10^6/uL (3.72-5.28); RED CELL DISTRIBUTION WIDTH 14.5 % (11.5-14.0); SEGMENTED NEUTROPHILS % (AUTO) 48.7 % (42-78); TOTAL CELLS COUNTED % (AUTO) 100 %; WHITE BLOOD COUNT 10.2 10^3/uL (4.0-10.5)
[2019-04-25 07:09] LABS: ALBUMIN 3.9 g/dL (3.5-5.0); ALKALINE PHOSPHATASE 46 U/L (38-126); ANION GAP 6 (5-19); ASPARTATE AMINO TRANSFERASE 22 U/L (14-36); BILIRUBIN,DIRECT 0.1 mg/dL (0.0-0.4); BILIRUBIN,TOTAL 0.3 mg/dL (0.2-1.3); BLOOD UREA NITROGEN 11 mg/dL (7-20); CALCIUM 9.2 mg/dL (8.4-10.2); CARBON DIOXIDE 27 mmol/L (22-30); CHLORIDE 111 mmol/L (98-107); CREATINE KINASE 87 U/L (30-135); GLUCOSE 95 mg/dL (75-110); POTASSIUM 3.3 mmol/L (3.6-5.0); TOTAL PROTEIN 6.7 g/dL (6.3-8.2)
[2019-04-25 07:22] LABS: CREATINE KINASE MB 2.44 ng/mL (<4.55); TROPONIN I 0.016 ng/mL
--- NOTE | 2019-04-25 07:37 | EKG REPORT ---
SEVERITY:- ABNORMAL ECG - SINUS TACHYCARDIA NONSPECIFIC T ABNORMALITIES, ANT-LAT LEADS LA ABNORMALITY : Confirmed by: Harvinder Allison MD 25-Apr-2019 07:36:54
[2019-04-25 09:00] LABS: APPEARANCE,URINE CLOUDY; BILIRUBIN,URINE NEGATIVE (NEGATIVE); CALCIUM OXALATE CRYSTALS,URINE MODERATE /HPF; COLOR,URINE AMBER; GLUCOSE, URINE NEGATIVE (NEGATIVE); KETONES,URINE TRACE mg/dL (NEGATIVE); LEUKOCYTE ESTERASE,URINE NEGATIVE (NEGATIVE); NITRITE,URINE NEGATIVE (NEGATIVE); PROTEIN,URINE 100 mg/dL (NEGATIVE); URINE SPECIFIC GRAVITY 1.035
[2019-04-25] MEDS ORDERED: LEVOFLOXACIN 750 MG/D5W RTU 750 MG/150 ML RTUPB IV ONE (09:03)
[2019-04-25] MEDS: METHYLPREDNISOLONE INJ 125 MG/2 ML SDV IV SCH ×2 (13:14→22:05)
[2019-04-25] MEDS: LEVALBUTEROL HCL NEB 1.25 MG/3 ML AMPUL NEB PRN (13:41)
[2019-04-25] MEDS ORDERED: FUROSEMIDE 20 MG TABLET PO PRN (13:48)
[2019-04-25] MEDS ORDERED: IPRATROPIUM BROMIDE 0.06% NASAL SPRAY 15 ML NASL PRN (13:48)
[2019-04-25] MEDS: CLOTRIMAZOLE 10 MG TROCHE MM SCH ×2 (15:45→18:03)
[2019-04-25] MEDS: RIVAROXABAN 10 MG TABLET PO SCH (17:57)
[2019-04-25] MEDS: VERAPAMIL HCL 180 MG TABLET.SA PO SCH (17:57)
[2019-04-25] MEDS: ALBUTEROL SULFATE HFA (90 MCG/PUFF) 200 PUFF/8.5 GM MDI IH SCH ×2 (17:58→22:04)
--- NOTE | 2019-04-25 20:22 | PDOC H&P ---
History of Present Illness Admission Date/PCP: 04/25/19 09:24 [facility] Patient complains of: Difficulty with breathing History of Present Illness: ARIELLA JUAREZ is a 54 year old female known to my practice who presented to the Ed due to worsening difficulty with breathing and left sided chest pain. She reported consulting with her business services specialist sales, Dr. Figueroa, yesterday and was instructed to report to the ED if her symptom worsen. She reported associated intermittent chills but no definite fever. There is associated abdominal fullness, difficulty with eating due to subsequent breathing difficulty and long standing constipation. She denied any nausea or vomiting. No difficulty with voiding. She reported continue bilateral lower extremities swelling that worsen with erect position and ambulation. She has history of significant rectal prolapse. She denied any nasal or sinus congestion, headache or dizziness. She admitted to continue cigarette smoking. Her initial ED evaluation was significant for tachycardia, tachypnea, and chest X ray that revealed COPD with tiny left pleural effusion. Her morbidities are as listed below. She was advised hospitalization for further evaluation and management. Past Medical History Cardiac Medical History: Reports: Congestive Heart Failure, Hyperlipidema Denies: Coronary Artery Disease, Myocardial Infarction, Hypertension Pulmonary Medical History: Reports: Asthma, Bronchitis, Chronic Obstructive Pulmonary Disease (COPD), Pneumonia Denies: Respiratory Failure, Sleep Apnea, Tuberculosis Neurological Medical History: Denies: Seizures Endocrine Medical History: Malignancy Medical History: Reports: Breast Cancer GI Medical History: Reports: Gastroesophageal Reflux Disease, Hiatal Hernia Musculoskeltal Medical History: Denies: Arthritis Skin Medical History: Reports: Psoriasis Psychiatric Medical History: Denies: Dementia, Depression Hematology: Denies: Anemia, Sickle Cell Disease Infectious Medical History: Denies: HIV Past Surgical History Past Surgical History: Reports: Mastectomy - bilat 2010, Orthopedic Surgery - left shoulder replacement 09/10 Denies: Hysterectomy, Pacemaker Social History Smoking Status: Current Every Day Smoker Frequency of Alcohol Use: None Hx Recreational Drug Use: No Drugs: None Hx Prescription Drug Abuse: No - Advance Directive Resuscitation Status: Full Code Family History Family History: CAD, Hypertension Parental Family History Reviewed: Yes Children Family History Reviewed: Yes Sibling(s) Family History Reviewed.: Yes Medication/Allergy Home Medications: Albuterol Sulfate [Albuterol Sulfate Hfa] 2 puff IH QID 04/25/19 Anastrozole [Arimidex 1 mg Tablet] 1 mg PO DAILY 04/25/19 Clotrimazole [Mycelex 10 Mg Rox] 10 mg MM Q4 MDD 5 TABLETS 04/25/19 Docusate Sodium [Stool Softener] 200 mg PO DAILY 04/25/19 Fexofenadine HCl [Barbara] 180 mg PO DAILY 04/25/19 Fluticasone/Umeclidin/Vilanter [Trelegy 100-62.5-25 Mcg Ellipta 14 Dose/Dpi] 1 puff IH DAILY 04/25/19 Furosemide [Lasix 20 mg Tablet] 20 mg PO QAMP PRN 04/25/19 Ipratropium [place] [Atrovent 0.06% Nasal [place]] 2 spray NASL QIDP PRN 04/25/19 Lansoprazole [Prevacid 30 Mg Odt Tablet] 30 mg PO Q6AM 04/25/19 Linaclotide [Linzess 145 Mcg Capsule] 145 mcg PO DAILY 04/25/19 Magnesium Oxide [Mag-Ox 400 mg Tablet] 400 mg PO DAILY 04/25/19 Megestrol Acetate 400 mg PO DAILY 04/25/19 Methylprednisolone [Medrol Dosepack (4 mg/Tab) 21 Tab/Dosepak] 4 mg PO ASDIR PRN 04/25/19 Montelukast Sodium [Singulair 10 mg Tablet] 10 mg PO DAILY 04/25/19 Multivit-Min/Iron/Folic/Lutein [Centrum Silver Women Tablet] 1 each PO DAILY 04/25/19 Nicotine [Nicoderm 7 mg/24 Hr Transdermal Patch] 1 patch TD DAILY 04/25/19 Rivaroxaban [Xarelto 10 mg Tablet] 10 mg PO QPM 04/25/19 Rosuvastatin Calcium [Crestor 10 mg Tablet] 10 mg PO DAILY 04/25/19 Simethicone [Mylicon 80 mg Chewable Tablet] 120 mg PO QIDP PRN 04/25/19 Verapamil HCl [Verapamil ER] 180 mg PO QPM 04/25/19 Allergies/Adverse Reactions: prednisone [Prednisone] Adverse Reaction (Intermediate, Verified 04/02/19 11:17) Review of Systems Constitutional: PRESENT: chills Eyes: ABSENT: visual disturbances Ears: ABSENT: hearing changes Nose, Mouth, and Throat: ABSENT: as per HPI, headache(s), mouth pain, sore throat, vertigo, other Cardiovascular: PRESENT: dyspnea on exertion, edema, palpitations Respiratory: PRESENT: dyspnea. ABSENT: as per HPI, cough, hemoptysis, sputum, other Gastrointestinal: PRESENT: bloating, constipation. ABSENT: as per HPI, abdomin al pain, coffee ground emesis, diarrhea, dysphagia, heartburn, hematemesis, hematochezia, melena, nausea, vomiting, other Genitourinary: ABSENT: dysuria, hematuria Musculoskeletal: ABSENT: joint swelling Integumentary: ABSENT: rash, wounds Neurological: ABSENT: abnormal gait, abnormal speech, confusion, dizziness, focal weakness, syncope Psychiatric: ABSENT: anxiety, depression, homidical ideation, suicidal ideation Endocrine: ABSENT: cold intolerance, heat intolerance, polydipsia, polyuria Hematologic/Lymphatic: ABSENT: easy bleeding, easy bruising, lymphadenopathy Allergic/Immunologic: ABSENT: seasonal rhinorrhea Physical Exam Vital Signs: Temp Pulse Resp BP Pulse Ox 99.1 F 118 H 18 130/69 H 98 04/25/19 16:07 04/25/19 16:07 04/25/19 16:07 04/25/19 16:07 04/25/19 16:07 Intake & Output 04/24/19 04/25/19 04/26/19 06:59 06:59 06:59 Intake Total 570 Balance 570 Weight 70.307 kg 64.9 kg General appearance: PRESENT: mild distress - on supplemental oygen via nasal cnnula at 2L/min Head exam: PRESENT: atraumatic, normocephalic Eye exam: PRESENT: conjunctiva pink, EOMI, PERRLA. ABSENT: scleral icterus Ear exam: PRESENT: normal external ear exam Mouth exam: PRESENT: moist Neck exam: PRESENT: full ROM. ABSENT: carotid bruit, JVD, lymphadenopathy, thyromegaly Respiratory exam: PRESENT: decreased breath sounds, rhonchi - expirtory phase Cardiovascular exam: PRESENT: +S1, +S2, tachycardia. ABSENT: diastolic murmur, systolic murmur GI/Abdominal exam: PRESENT: distended, normal bowel sounds, soft. ABSENT: ascites, guarding, organolmegaly, tenderness Rectal exam: PRESENT: deferred Extremities exam: PRESENT: pedal edema - 1+ bilaterally Musculoskeletal exam: ABSENT: tenderness Neurological exam: PRESENT: alert, awake, oriented to person, oriented to place, oriented to time, oriented to situation, CN II-XII grossly intact. ABSENT: motor sensory deficit Psychiatric exam: PRESENT: appropriate affect, normal mood. ABSENT: homicidal ideation, suicidal ideation Skin exam: PRESENT: dry, warm Results Laboratory Results: 04/25/19 06:32 04/25/19 06:32 04/25/19 04/25/19 04/25/19 06:32 06:32 08:33 WBC 10.2 RBC 3.86 Hgb 12.9 Hct 39.5 MCV 102 H MCH 33.5 H MCHC 32.8 RDW 14.5 H Plt Count 264 Seg Neutrophils % 48.7 Sodium 144.1 Potassium 3.3 L Chloride 111 H Carbon Dioxide 27 Anion Gap 6 BUN 11 Creatinine 0.83 Est GFR ( Amer) > 60 Glucose 95 Calcium 9.2 Total Bilirubin 0.3 AST 22 Alkaline Phosphatase 46 Total Protein 6.7 Albumin 3.9 Urine Color NEAL Urine Appearance CLOUDY Urine pH 5.0 Ur Specific [place] 1.035 Urine Protein 100 H Urine Glucose (UA) NEGATIVE Urine Ketones TRACE H Urine Blood MODERATE H Urine Nitrite NEGATIVE Ur Leukocyte Esterase NEGATIVE Urine WBC (Auto) 18 Urine RBC (Auto) 105 04/25/19 04/25/19 06:32 06:32 Creatine Kinase 87 CK-MB (CK-2) 2.44 Troponin I 0.016 NT-Pro-B Natriuret Pep 110 Impressions: Chest X-Ray 04/25/19 04:58 IMPRESSION: COPD. Tiny left effusion. copyright 2010 [employer]- All Rights Reserved Assessment & Plan - Diagnosis (1) Acute exacerbation of COPD with asthma Is this a current diagnosis for this admission?: Yes Plan: See admitting attending physician orders for details. (2) Cigarette smoker one half pack a day or less Is this a current diagnosis for this admission?: Yes Plan: See admitting attending physician orders for details. (3) Essential hypertension Is this a current diagnosis for this admission?: Yes Plan: See admitting attending physician orders for details. (4) HLD (hyperlipidemia) Qualifiers: Hyperlipidemia type: unspecified Qualified Code(s): E78.5 - Hyperlipidemia, unspecified Is this a current diagnosis for this admission?: Yes Plan: See admitting attending physician orders for details. (5) Constipation by delayed colonic transit Is this a current diagnosis for this admission?: Yes (6) Hypokalemia due to loss of potassium Is this a current diagnosis for this admission?: Yes Plan: See admitting attending physician orders for details. (7) Lymphedema of upper extremity following lymphadenectomy Is this a current diagnosis for this admission?: Yes Plan: See admitting attending physician orders for details. (8) Status post bilateral mastectomy Is this a current diagnosis for this admission?: No Plan: See admitting attending physician orders for details. - Time Time Spent: 50 to 70 Minutes Smoking Cessation Education: 3 to 10 minutes Medications reviewed and adjusted accordingly: Yes Anticipated discharge: Home with Homehealth Within: Other - Inpatient Certification Based on my medical assessment, after consideration of the patient's comorbidities, presenting symptoms, or acuity I expect that the services needed warrant INPATIENT care.: Yes I certify that my determination is in accordance with my understanding of Medicare's requirements for reasonable and necessary INPATIENT services [42 CFR 412.3e].: Yes Medical Necessity: Significant Comorbidiites Make Outpatient Treatment Too Risky, Need Close Monitoring Due to Risk of Patient Decompensation, Need For Continuous Telemetry Monitoring, Need for Nebulizer Therapy and Monitoring of Response, Need for IV Antibiotics, Risk of Complication if Not Cared For in Hospital, Risk of Diagnosis Which Will Require Inpatient Eval/Care/Monitoring Post Hospital Care: D/C Head Of Sales Documentation - Plan Summary Plan Summary: See admitting attending physician orders for details.
[2019-04-25] MEDS: POTASSIUM CHLORIDE 20 MEQ PACKET PO SCH (22:03)
[2019-04-25] MEDS: ATORVASTATIN CALCIUM 10 MG TABLET PO SCH (22:04)
[2019-04-26] MEDS: POTASSIUM CHLORIDE 20 MEQ PACKET PO SCH (02:22)
[2019-04-26] MEDS ORDERED: (PENDING PHARMACY ID) (Lansoprazole 30 MG) PO SCH (06:00)
[2019-04-26] MEDS: PANTOPRAZOLE SODIUM 40 MG TABLET.DR PO SCH (06:10)
[2019-04-26] MEDS: METHYLPREDNISOLONE INJ 125 MG/2 ML SDV IV SCH ×3 (06:11→22:28)
[2019-04-26] MEDS: CLOTRIMAZOLE 10 MG TROCHE MM SCH ×5 (07:14→18:15)
[2019-04-26] MEDS: MAGNESIUM OXIDE 400 MG TABLET PO SCH (09:09)
[2019-04-26] MEDS: DOCUSATE SODIUM 100 MG CAPSULE PO SCH (09:09)
[2019-04-26] MEDS: MULTIVITAMIN TABLET PO SCH (09:09)
[2019-04-26] MEDS: LORATADINE 10 MG TABLET PO SCH (09:09)
[2019-04-26] MEDS: LEVOFLOXACIN 750 MG/D5W RTU 750 MG/150 ML RTUPB IV SCH (09:09)
[2019-04-26] MEDS: MONTELUKAST SODIUM 10 MG TABLET PO SCH (09:09)
[2019-04-26] MEDS: ANASTROZOLE 1 MG TABLET PO SCH (09:10)
[2019-04-26] MEDS: NICOTINE 7 MG/24 HR PATCH.TD24 TD SCH (09:10)
[2019-04-26] MEDS: ALBUTEROL SULFATE HFA (90 MCG/PUFF) 200 PUFF/8.5 GM MDI IH SCH ×4 (09:11→22:28)
[2019-04-26] MEDS ORDERED: (PENDING PHARMACY ID) (Megestrol Acetate [Megestrol Acetate] 400 MG) PO SCH (10:00)
[2019-04-26] MEDS ORDERED: MEGESTROL ACETATE SUSP 400 MG/10 ML UDCUP PO SCH (10:00)
[2019-04-26] MEDS ORDERED: (PENDING PHARMACY ID) (Linaclotide 145 MCG) PO SCH (10:00)
[2019-04-26] MEDS ORDERED: (PENDING PHARMACY ID) (Multivit-Min/Iron/Folic/Lutein [Centrum Silver Women Tablet] 1 EACH PO SCH (10:00)
[2019-04-26] MEDS ORDERED: FLUTICASONE/UMECLIDIN/VILANTER 100-62.5-25 MCG/DOSE IH SCH (10:00)
[2019-04-26] MEDS: LEVALBUTEROL HCL NEB 1.25 MG/3 ML AMPUL NEB PRN (10:07)
--- NOTE | 2019-04-26 16:26 | PDOC PROGRESS REPORT ---
Subjective Progress Note for:: 04/26/19 Subjective:: Patient reported persistent shortness of breath with palpitation and fast heart rate. No definite chest pain except with movement. No nausea, vomiting , or abdominal pain. Reason For Visit: COPD EXACERBATION, TACHYCARDIA Physical Exam Vital Signs: Temp Pulse Resp BP Pulse Ox 98.8 F 115 H 18 113/61 100 04/26/19 11:01 04/26/19 13:35 04/26/19 11:01 04/26/19 11:01 04/26/19 11:01 Intake & Output 04/25/19 04/26/19 04/27/19 06:59 06:59 06:59 Intake Total 570 150 Output Total 0 Balance 570 150 Weight 70.307 kg 66.8 kg General appearance: PRESENT: mild distress - remainon supplemental oxygen via nasal cannula at 2L/min Head exam: PRESENT: atraumatic, normocephalic Eye exam: PRESENT: conjunctiva pink. ABSENT: scleral icterus Ear exam: PRESENT: normal external ear exam Mouth exam: PRESENT: moist Respiratory exam: PRESENT: clear to auscultation darinel Cardiovascular exam: PRESENT: RRR. ABSENT: diastolic murmur, rubs, systolic murmur Vascular exam: ABSENT: pallor GI/Abdominal exam: PRESENT: normal bowel sounds, soft. ABSENT: distended, guarding, mass, organolmegaly, rebound, tenderness Extremities exam: ABSENT: pedal edema Neurological exam: PRESENT: alert, awake, oriented to person, oriented to place, oriented to time, oriented to situation, CN II-XII grossly intact. ABSENT: motor sensory deficit Psychiatric exam: PRESENT: appropriate affect, normal mood. ABSENT: homicidal ideation, suicidal ideation Skin exam: PRESENT: dry, warm Results Laboratory Results: 04/25/19 06:32 04/25/19 06:32 04/25/19 06:32 Magnesium 2.1 04/25/19 04/25/19 06:32 06:32 Creatine Kinase 87 CK-MB (CK-2) 2.44 Troponin I 0.016 NT-Pro-B Natriuret Pep 110 Impressions: Chest X-Ray 04/25/19 04:58 IMPRESSION: COPD. Tiny left effusion. copyright 2010 [employer]- All Rights Reserved Assessment & Plan - Diagnosis (1) Acute exacerbation of COPD with asthma Is this a current diagnosis for this admission?: Yes (2) Cigarette smoker one half pack a day or less Is this a current diagnosis for this admission?: Yes (3) Essential hypertension Is this a current diagnosis for this admission?: Yes (4) HLD (hyperlipidemia) Qualifiers: Hyperlipidemia type: unspecified Qualified Code(s): E78.5 - Hyperlipidemia, unspecified Is this a current diagnosis for this admission?: Yes (5) Constipation by delayed colonic transit Is this a current diagnosis for this admission?: Yes (6) Hypokalemia due to loss of potassium Is this a current diagnosis for this admission?: Yes (7) Lymphedema of upper extremity following lymphadenectomy Is this a current diagnosis for this admission?: Yes (8) Status post bilateral mastectomy Is this a current diagnosis for this admission?: No - Time Time Spent with patient: 25-34 minutes Level of Care: IMCU Medications reviewed and adjusted accordingly: Yes Anticipated discharge: Home with Homehealth Within: Other - Inpatient Certification Based on my medical assessment, after consideration of the patient's comorbidities, presenting symptoms, or acuity I expect that the services needed warrant INPATIENT care.: Yes I certify that my determination is in accordance with my understanding of Medicare's requirements for reasonable and necessary INPATIENT services [42 CFR 412.3e].: Yes Medical Necessity: Significant Comorbidiites Make Outpatient Treatment Too Risky, Need Close Monitoring Due to Risk of Patient Decompensation, Need For IV Fluids, Need For Continuous Telemetry Monitoring, Need for IV Antibiotics, Risk of Complication if Not Cared For in Hospital, Risk of Diagnosis Which Will Require Inpatient Eval/Care/Monitoring Post Hospital Care: D/C Senior Product Designer 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 Obtain BMP.
[2019-04-26] MEDS: RIVAROXABAN 10 MG TABLET PO SCH (17:00)
[2019-04-26] MEDS: VERAPAMIL HCL 180 MG TABLET.SA PO SCH (17:00)
[2019-04-26 17:34] LABS: ANION GAP 8 (5-19); BLOOD UREA NITROGEN 9 mg/dL (7-20); CALCIUM 9.4 mg/dL (8.4-10.2); CARBON DIOXIDE 23 mmol/L (22-30); CHLORIDE 112 mmol/L (98-107); GLUCOSE 177 mg/dL (75-110); POTASSIUM 4.4 mmol/L (3.6-5.0)
[2019-04-26] MEDS: ATORVASTATIN CALCIUM 10 MG TABLET PO SCH (22:27)
[2019-04-26] MEDS: ACETAMINOPHEN 325 MG TABLET PO PRN (23:45)
[2019-04-27] MEDS: CLOTRIMAZOLE 10 MG TROCHE MM SCH ×5 (06:19→18:22)
[2019-04-27] MEDS: PANTOPRAZOLE SODIUM 40 MG TABLET.DR PO SCH (06:19)
[2019-04-27] MEDS: METHYLPREDNISOLONE INJ 125 MG/2 ML SDV IV SCH ×3 (06:19→21:38)
[2019-04-27] MEDS: NICOTINE 7 MG/24 HR PATCH.TD24 TD SCH (09:08)
[2019-04-27] MEDS: MULTIVITAMIN TABLET PO SCH (09:08)
[2019-04-27] MEDS: DOCUSATE SODIUM 100 MG CAPSULE PO SCH (09:08)
[2019-04-27] MEDS: MAGNESIUM OXIDE 400 MG TABLET PO SCH (09:08)
[2019-04-27] MEDS: LORATADINE 10 MG TABLET PO SCH (09:08)
[2019-04-27] MEDS: MONTELUKAST SODIUM 10 MG TABLET PO SCH (09:08)
[2019-04-27] MEDS: ANASTROZOLE 1 MG TABLET PO SCH (09:08)
[2019-04-27] MEDS: ALBUTEROL SULFATE HFA (90 MCG/PUFF) 200 PUFF/8.5 GM MDI IH SCH ×4 (09:09→21:38)
[2019-04-27] MEDS: LEVOFLOXACIN 750 MG/D5W RTU 750 MG/150 ML RTUPB IV SCH (09:10)
--- NOTE | 2019-04-27 15:29 | PDOC PROGRESS REPORT ---
Subjective Progress Note for:: 04/27/19 Subjective:: Patient reported improvement in her breathing. No chest pain or palpitation. No nausea, vomiting , or abdominal pain. Reason For Visit: COPD EXACERBATION, TACHYCARDIA Physical Exam Vital Signs: Temp Pulse Resp BP Pulse Ox 98.1 F 126 H 20 131/71 H 99 04/27/19 12:07 04/27/19 13:38 04/27/19 12:07 04/27/19 12:07 04/27/19 12:07 Intake & Output 04/26/19 04/27/19 04/28/19 06:59 06:59 05:59 Intake Total 570 390 150 Output Total 0 Balance 570 390 150 Weight 66.8 kg 70.1 kg Physical Exam: General appearance: PRESENT: mild distress - remain on supplemental oxygen via nasal cannula at 2L/min Head exam: PRESENT: atraumatic, normocephalic Eye exam: PRESENT: conjunctiva pink. ABSENT: pallor, scleral icterus Ear exam: PRESENT: normal external ear exam Mouth exam: PRESENT: moist Respiratory exam: PRESENT: clear to auscultation darinel Cardiovascular exam: PRESENT: RRR. ABSENT: diastolic murmur, rubs, systolic murmur GI/Abdominal exam: PRESENT: normal bowel sounds, soft. ABSENT: distended, guarding, mass, organomegaly, rebound, tenderness Extremities exam: ABSENT: pedal edema Neurological exam: PRESENT: alert, awake, oriented to person, oriented to place, oriented to time, oriented to situation, CN II-XII grossly intact. ABSENT: motor sensory deficit Psychiatric exam: PRESENT: appropriate affect, normal mood. ABSENT: homicidal ideation, suicidal ideation Skin exam: PRESENT: dry, warm Results Laboratory Results: 04/25/19 06:32 04/26/19 17:00 04/26/19 17:00 Sodium 142.8 Potassium 4.4 Chloride 112 H Carbon Dioxide 23 Anion Gap 8 BUN 9 Creatinine 0.60 Est GFR ( Amer) > 60 Glucose 177 H Calcium 9.4 04/25/19 04/25/19 06:32 06:32 Creatine Kinase 87 CK-MB (CK-2) 2.44 Troponin I 0.016 NT-Pro-B Natriuret Pep 110 Impressions: Chest X-Ray 04/25/19 04:58 IMPRESSION: COPD. Tiny left effusion. copyright 2011 [employer]- All Rights Reserved Assessment & Plan - Diagnosis (1) Acute exacerbation of COPD with asthma Is this a current diagnosis for this admission?: Yes (2) Cigarette smoker one half pack a day or less Is this a current diagnosis for this admission?: Yes (3) Essential hypertension Is this a current diagnosis for this admission?: Yes (4) HLD (hyperlipidemia) Qualifiers: Hyperlipidemia type: unspecified Qualified Code(s): E78.5 - Hyperlipidemia, unspecified Is this a current diagnosis for this admission?: Yes (5) Constipation by delayed colonic transit Is this a current diagnosis for this admission?: Yes (6) Hypokalemia due to loss of potassium Is this a current diagnosis for this admission?: Yes (7) Lymphedema of upper extremity following lymphadenectomy Is this a current diagnosis for this admission?: Yes (8) Status post bilateral mastectomy Is this a current diagnosis for this admission?: No - Time Time Spent with patient: 25-34 minutes Medications reviewed and adjusted accordingly: Yes Anticipated discharge: Home with Homehealth Within: Other - Inpatient Certification Based on my medical assessment, after consideration of the patient's comorbidities, presenting symptoms, or acuity I expect that the services needed warrant INPATIENT care.: Yes I certify that my determination is in accordance with my understanding of Medicare's requirements for reasonable and necessary INPATIENT services [42 CFR 412.3e].: Yes Medical Necessity: Significant Comorbidiites Make Outpatient Treatment Too Risky, Need For Continuous Telemetry Monitoring, Need for Nebulizer Therapy and Monitoring of Response, Need for IV Antibiotics, Risk of Complication if Not Cared For in Hospital, Risk of Diagnosis Which Will Require Inpatient Eval/Care/Monitoring Post Hospital Care: D/C Swimming Pool Cleaner Documentation - Plan Summary Plan Summary: Decrease IV Solu Medrol to 80 mg q 8 hours. Maintain on all other current medication management.
[2019-04-27] MEDS: VERAPAMIL HCL 180 MG TABLET.SA PO SCH (17:32)
[2019-04-27] MEDS: RIVAROXABAN 10 MG TABLET PO SCH (17:32)
[2019-04-27] MEDS: ATORVASTATIN CALCIUM 10 MG TABLET PO SCH (21:37)
[2019-04-28] MEDS: PANTOPRAZOLE SODIUM 40 MG TABLET.DR PO SCH (05:09)
[2019-04-28] MEDS: METHYLPREDNISOLONE INJ 125 MG/2 ML SDV IV SCH ×3 (05:09→21:35)
[2019-04-28] MEDS: SIMETHICONE 80 MG TAB.CHEW PO PRN ×2 (05:09→21:33)
[2019-04-28] MEDS: CLOTRIMAZOLE 10 MG TROCHE MM SCH ×5 (07:37→21:32)
[2019-04-28] MEDS: MULTIVITAMIN TABLET PO SCH (09:20)
[2019-04-28] MEDS: LORATADINE 10 MG TABLET PO SCH (09:20)
[2019-04-28] MEDS: MONTELUKAST SODIUM 10 MG TABLET PO SCH (09:20)
[2019-04-28] MEDS: MAGNESIUM OXIDE 400 MG TABLET PO SCH (09:20)
[2019-04-28] MEDS: DOCUSATE SODIUM 100 MG CAPSULE PO SCH (09:20)
[2019-04-28] MEDS: NICOTINE 7 MG/24 HR PATCH.TD24 TD SCH (09:21)
[2019-04-28] MEDS: ANASTROZOLE 1 MG TABLET PO SCH (09:21)
[2019-04-28] MEDS: ALBUTEROL SULFATE HFA (90 MCG/PUFF) 200 PUFF/8.5 GM MDI IH SCH ×4 (09:22→21:36)
[2019-04-28] MEDS: LEVOFLOXACIN 750 MG/D5W RTU 750 MG/150 ML RTUPB IV SCH (10:08)
[2019-04-28] MEDS: ACETAMINOPHEN 325 MG TABLET PO PRN ×2 (12:52→21:45)
--- NOTE | 2019-04-28 16:05 | PDOC PROGRESS REPORT ---
Subjective Progress Note for:: 04/28/19 Subjective:: Patient denied any chest pain or palpitation. Her breathing is gradually improving. No nausea, vomiting , or abdominal pain. No fever or chills. Reason For Visit: COPD EXACERBATION, TACHYCARDIA Physical Exam Vital Signs: Temp Pulse Resp BP Pulse Ox 98.4 F 108 H 16 129/79 H 96 04/28/19 03:36 04/28/19 13:53 04/28/19 08:00 04/28/19 03:36 04/28/19 08:00 Intake & Output 04/27/19 04/28/19 04/29/19 07:59 06:59 06:59 Intake Total 150 Balance 150 Weight Physical Exam: General appearance: PRESENT: mild distress - remain on supplemental oxygen via nasal cannula at 2L/min Head exam: PRESENT: atraumatic, normocephalic Eye exam: PRESENT: conjunctiva pink. ABSENT: pallor, scleral icterus Ear exam: PRESENT: normal external ear exam Mouth exam: PRESENT: moist Respiratory exam: PRESENT: clear to auscultation darinel Cardiovascular exam: PRESENT: RRR. ABSENT: diastolic murmur, rubs, systolic murmur GI/Abdominal exam: PRESENT: normal bowel sounds, soft. ABSENT: distended, guarding, mass, organomegaly, rebound, tenderness Extremities exam: ABSENT: pedal edema Neurological exam: PRESENT: alert, awake, oriented to person, oriented to place, oriented to time, oriented to situation, CN II-XII grossly intact. ABSENT: motor sensory deficit Psychiatric exam: PRESENT: appropriate affect, normal mood. ABSENT: homicidal ideation, suicidal ideation Skin exam: PRESENT: dry, warm Results Laboratory Results: 04/25/19 06:32 04/26/19 17:00 04/25/19 04/25/19 06:32 06:32 Creatine Kinase 87 CK-MB (CK-2) 2.44 Troponin I 0.016 NT-Pro-B Natriuret Pep 110 Impressions: Chest X-Ray 04/25/19 04:58 IMPRESSION: COPD. Tiny left effusion. copyright 2010 [employer]- All Rights Reserved Assessment & Plan - Diagnosis (1) Acute exacerbation of COPD with asthma Is this a current diagnosis for this admission?: Yes (2) Cigarette smoker one half pack a day or less Is this a current diagnosis for this admission?: Yes (3) Essential hypertension Is this a current diagnosis for this admission?: Yes (4) HLD (hyperlipidemia) Qualifiers: Hyperlipidemia type: unspecified Qualified Code(s): E78.5 - Hyperlipidemia, unspecified Is this a current diagnosis for this admission?: Yes (5) Constipation by delayed colonic transit Is this a current diagnosis for this admission?: Yes (6) Hypokalemia due to loss of potassium Is this a current diagnosis for this admission?: Yes (7) Lymphedema of upper extremity following lymphadenectomy Is this a current diagnosis for this admission?: Yes (8) Status post bilateral mastectomy Is this a current diagnosis for this admission?: No - Time Time Spent with patient: 25-34 minutes Level of Care: IMCU Medications reviewed and adjusted accordingly: Yes Anticipated discharge: Home with Homehealth Within: Other - Inpatient Certification Based on my medical assessment, after consideration of the patient's comorbidities, presenting symptoms, or acuity I expect that the services needed warrant INPATIENT care.: Yes I certify that my determination is in accordance with my understanding of Medicare's requirements for reasonable and necessary INPATIENT services [42 CFR 412.3e].: Yes Medical Necessity: Significant Comorbidiites Make Outpatient Treatment Too Risky, Need Close Monitoring Due to Risk of Patient Decompensation, Need For Continuous Telemetry Monitoring, Need for Nebulizer Therapy and Monitoring of Response, Need for IV Antibiotics, Risk of Complication if Not Cared For in Hospital, Risk of Diagnosis Which Will Require Inpatient Eval/Care/Monitoring Post Hospital Care: D/C Edging Machine Feeder 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 Decrease Solu Medrol to 60 mg q 8 hours. Obtain CBC with diff and BMP in AM.
[2019-04-28] MEDS: VERAPAMIL HCL 180 MG TABLET.SA PO SCH (17:09)
[2019-04-28] MEDS: RIVAROXABAN 10 MG TABLET PO SCH (17:09)
[2019-04-28] MEDS: ATORVASTATIN CALCIUM 10 MG TABLET PO SCH (21:32)
[2019-04-29] MEDS: ACETAMINOPHEN 325 MG TABLET PO PRN ×2 (04:22→17:24)
[2019-04-29 05:27] LABS: HEMATOCRIT 35.4 % (36.0-47.0); HEMOGLOBIN 11.6 g/dL (12.0-15.5); MEAN CORPUSCULAR HEMOGLOBIN 33.5 pg (27.0-33.4); MEAN CORPUSCULAR HGB CONC 32.8 g/dL (32.0-36.0); MEAN CORPUSCULAR VOLUME 102 fl (80-97); PLATELET COUNT 254 10^3/uL (150-450); RED BLOOD COUNT 3.47 10^6/uL (3.72-5.28); RED CELL DISTRIBUTION WIDTH 14.4 % (11.5-14.0); WHITE BLOOD COUNT 11.3 10^3/uL (4.0-10.5)
[2019-04-29 05:53] LABS: ANION GAP 7 (5-19); BLOOD UREA NITROGEN 21 mg/dL (7-20); CALCIUM 8.5 mg/dL (8.4-10.2); CARBON DIOXIDE 26 mmol/L (22-30); CHLORIDE 108 mmol/L (98-107); GLUCOSE 155 mg/dL (75-110); POTASSIUM 4.2 mmol/L (3.6-5.0)
[2019-04-29 06:19] LABS: ABSOLUTE LYMPHOCYTES# (MANUAL) 1.8 10^3/uL (0.5-4.7); ABSOLUTE MONOCYTES # (MANUAL) 0.5 10^3/uL (0.1-1.4); BAND NEUTROPHILS % (MANUAL) 1 % (3-5); BASOPHILS % (MANUAL) 0 % (0-2); EOSINOPHILS % (MANUAL) 0 % (0-6); LYMPHOCYTES % (MANUAL) 16 % (13-45); MONOCYTES % (MANUAL) 4 % (3-13); SEGMENTED NEUTROPHILS % (MAN) 79 % (42-78); TOTAL CELLS COUNTED 100
[2019-04-29 06:20] LABS: POLYCHROMASIA SLIGHT
[2019-04-29 06:21] LABS: PLATELET COMMENT ADEQUATE; POIKILOCYTOSIS SLIGHT; TARGET CELLS SLIGHT
[2019-04-29] MEDS: METHYLPREDNISOLONE INJ 125 MG/2 ML SDV IV SCH (06:26)
[2019-04-29] MEDS: CLOTRIMAZOLE 10 MG TROCHE MM SCH ×5 (06:26→21:55)
[2019-04-29] MEDS: PANTOPRAZOLE SODIUM 40 MG TABLET.DR PO SCH (06:26)
[2019-04-29] MEDS: LORATADINE 10 MG TABLET PO SCH (10:39)
[2019-04-29] MEDS: NICOTINE 7 MG/24 HR PATCH.TD24 TD SCH (10:39)
[2019-04-29] MEDS: MULTIVITAMIN TABLET PO SCH (10:39)
[2019-04-29] MEDS: MAGNESIUM OXIDE 400 MG TABLET PO SCH (10:39)
[2019-04-29] MEDS: MONTELUKAST SODIUM 10 MG TABLET PO SCH (10:39)
[2019-04-29] MEDS: DOCUSATE SODIUM 100 MG CAPSULE PO SCH (10:39)
[2019-04-29] MEDS: ANASTROZOLE 1 MG TABLET PO SCH (10:41)
[2019-04-29] MEDS: ALBUTEROL SULFATE HFA (90 MCG/PUFF) 200 PUFF/8.5 GM MDI IH SCH ×4 (10:42→21:36)
[2019-04-29] MEDS: LEVOFLOXACIN 750 MG/D5W RTU 750 MG/150 ML RTUPB IV SCH (10:45)
--- NOTE | 2019-04-29 13:58 | PDOC PROGRESS REPORT ---
Subjective Progress Note for:: 04/29/19 Subjective:: No chest pain or palpitation with improved breathing. No nausea, vomiting , or abdominal pain. No fever or chills. Reason For Visit: COPD EXACERBATION, TACHYCARDIA Physical Exam Vital Signs: Temp Pulse Resp BP Pulse Ox 98.3 F 95 18 146/78 H 98 04/29/19 03:32 04/29/19 07:00 04/29/19 03:32 04/29/19 03:32 04/29/19 03:32 Intake & Output 04/28/19 04/29/19 04/30/19 06:59 06:59 06:59 Intake Total 1030 360 Balance 1030 360 Weight 69 kg Physical Exam: General appearance: PRESENT: mild distress - remain on supplemental oxygen via nasal cannula at 2L/min Head exam: PRESENT: atraumatic, normocephalic Eye exam: PRESENT: conjunctiva pink. ABSENT: pallor, scleral icterus Ear exam: PRESENT: normal external ear exam Mouth exam: PRESENT: moist Respiratory exam: PRESENT: clear to auscultation darinel Cardiovascular exam: PRESENT: RRR. ABSENT: diastolic murmur, rubs, systolic murmur GI/Abdominal exam: PRESENT: normal bowel sounds, soft. ABSENT: distended, guarding, mass, organomegaly, rebound, tenderness Extremities exam: ABSENT: pedal edema Neurological exam: PRESENT: alert, awake, oriented to person, oriented to place, oriented to time, oriented to situation, CN II-XII grossly intact. ABSENT: motor sensory deficit Psychiatric exam: PRESENT: appropriate affect, normal mood. ABSENT: homicidal ideation, suicidal ideation Skin exam: PRESENT: dry, warm Results Laboratory Results: 04/29/19 04:03 04/29/19 04:03 04/29/19 04/29/19 04:03 04:03 WBC 11.3 H RBC 3.47 L Hgb 11.6 L Hct 35.4 L MCV 102 H MCH 33.5 H MCHC 32.8 RDW 14.4 H Plt Count 254 Seg Neutrophils % Not Reportable Sodium 141.0 Potassium 4.2 Chloride 108 H Carbon Dioxide 26 Anion Gap 7 BUN 21 H Creatinine 0.73 Est GFR ( Amer) > 60 Glucose 155 H Calcium 8.5 04/25/19 04/25/19 06:32 06:32 Creatine Kinase 87 CK-MB (CK-2) 2.44 Troponin I 0.016 NT-Pro-B Natriuret Pep 110 Impressions: Chest X-Ray 04/25/19 04:58 IMPRESSION: COPD. Tiny left effusion. copyright 2010 [employer]- All Rights Reserved Assessment & Plan - Diagnosis (1) Acute exacerbation of COPD with asthma Is this a current diagnosis for this admission?: Yes (2) Cigarette smoker one half pack a day or less Is this a current diagnosis for this admission?: Yes (3) Essential hypertension Is this a current diagnosis for this admission?: Yes (4) HLD (hyperlipidemia) Qualifiers: Hyperlipidemia type: unspecified Qualified Code(s): E78.5 - Hyperlipidemia, unspecified Is this a current diagnosis for this admission?: Yes (5) Constipation by delayed colonic transit Is this a current diagnosis for this admission?: Yes (6) Hypokalemia due to loss of potassium Is this a current diagnosis for this admission?: Yes (7) Lymphedema of upper extremity following lymphadenectomy Is this a current diagnosis for this admission?: Yes (8) Status post bilateral mastectomy Is this a current diagnosis for this admission?: No - Time Time Spent with patient: 25-34 minutes Medications reviewed and adjusted accordingly: Yes Anticipated discharge: Home with Homehealth Within: Other - Inpatient Certification Based on my medical assessment, after consideration of the patient's c omorbidities, presenting symptoms, or acuity I expect that the services needed warrant INPATIENT care.: Yes I certify that my determination is in accordance with my understanding of Medicare's requirements for reasonable and necessary INPATIENT services [42 CFR 412.3e].: Yes Medical Necessity: Significant Comorbidiites Make Outpatient Treatment Too Risky, Need Close Monitoring Due to Risk of Patient Decompensation, Need For Continuous Telemetry Monitoring, Need for Nebulizer Therapy and Monitoring of Response, Need for IV Antibiotics, Risk of Complication if Not Cared For in Hospital, Risk of Diagnosis Which Will Require Inpatient Eval/Care/Monitoring 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 decrease IV Solu Medrol to 40 mg q 8 hours.
[2019-04-29] MEDS ORDERED: METHYLPREDNISOLONE INJ 125 MG/2 ML SDV IV SCH (14:00)
[2019-04-29] MEDS: METHYLPREDNISOLONE INJ 40 MG/1 ML SDV IV SCH ×2 (14:40→21:35)
[2019-04-29] MEDS: RIVAROXABAN 10 MG TABLET PO SCH (17:19)
[2019-04-29] MEDS: VERAPAMIL HCL 180 MG TABLET.SA PO SCH (17:20)
[2019-04-29] MEDS: ATORVASTATIN CALCIUM 10 MG TABLET PO SCH (21:35)
[2019-04-29] MEDS: LEVALBUTEROL HCL NEB 1.25 MG/3 ML AMPUL NEB PRN (22:06)
[2019-04-30] MEDS: PANTOPRAZOLE SODIUM 40 MG TABLET.DR PO SCH (06:02)
[2019-04-30] MEDS: CLOTRIMAZOLE 10 MG TROCHE MM SCH (06:02)
[2019-04-30] MEDS: METHYLPREDNISOLONE INJ 40 MG/1 ML SDV IV SCH (06:03)
[2019-04-30 08:35] VITALS: BP 131/80
--- NOTE | 2019-04-30 18:45 | PDOC DISCHARGE SUMMARY ---
Impression - Admit/DC Date/PCP Admission Date/Primary Care Provider: 04/25/19 09:24 LUKASZ ORNELAS Discharge Date: 04/30/19 - Discharge Diagnosis (1) Acute exacerbation of COPD with asthma Is this a current diagnosis for this admission?: Yes (2) Cigarette smoker one half pack a day or less Is this a current diagnosis for this admission?: Yes (3) Essential hypertension Is this a current diagnosis for this admission?: Yes (4) HLD (hyperlipidemia) Is this a current diagnosis for this admission?: Yes (5) Constipation by delayed colonic transit Is this a current diagnosis for this admission?: Yes (6) Hypokalemia due to loss of potassium Is this a current diagnosis for this admission?: Yes (7) Lymphedema of upper extremity following lymphadenectomy Is this a current diagnosis for this admission?: Yes (8) Status post bilateral mastectomy Is this a current diagnosis for this admission?: No - Additional Information Resuscitation Status: Full Code Discharge Activity: Activity As Tolerated, Slowly Increase Activity Referrals: LUKASZ ORNELAS MD [Primary Care Provider] - 05/06/19 10:00 am Prescriptions: Methylprednisolone [Medrol 4 mg Tablet] 4 mg PO ASDIR PRN #32 tablet PRN Reason: Home Medications: Albuterol Sulfate [Albuterol Sulfate Hfa] 2 puff IH QID 04/25/19 Anastrozole [Arimidex 1 mg Tablet] 1 mg PO DAILY 04/25/19 Clotrimazole [Mycelex 10 mg Rox] 10 mg MM Q4 MDD 5 TABLETS 04/25/19 Docusate Sodium [Stool Softener] 200 mg PO DAILY 04/25/19 Fexofenadine HCl [Barbara] 180 mg PO DAILY 04/25/19 Fluticasone/Umeclidin/Vilanter [Trelegy 100-62.5-25 Mcg Ellipta 14 Dose/Dpi] 1 puff IH DAILY 04/25/19 Furosemide [Lasix 20 mg Tablet] 20 mg PO QAMP PRN 04/25/19 Ipratropium [place] [Atrovent 0.06% Nasal [place]] 2 spray NASL QIDP PRN 04/25/19 Lansoprazole [Prevacid 30 mg Odt Tablet] 30 mg PO Q6AM 04/25/19 Linaclotide [Linzess 145 Mcg Capsule] 145 mcg PO DAILY 04/25/19 Magnesium Oxide [Mag-Ox 400 mg Tablet] 400 mg PO DAILY 04/25/19 Megestrol Acetate 400 mg PO DAILY 04/25/19 Montelukast Sodium [Singulair 10 mg Tablet] 10 mg PO DAILY 04/25/19 Multivit-Min/Iron/Folic/Lutein [Centrum Silver Women Tablet] 1 each PO DAILY 04/25/19 Nicotine [Nicoderm 7 mg/24 Hr Transdermal Patch] 1 patch TD DAILY 04/25/19 Rivaroxaban [Xarelto 10 mg Tablet] 10 mg PO QPM 04/25/19 Rosuvastatin Calcium [Crestor 10 mg Tablet] 10 mg PO DAILY 04/25/19 Simethicone [Mylicon 80 mg Chewable Tablet] 120 mg PO QIDP PRN 04/25/19 Verapamil HCl [Verapamil ER] 180 mg PO QPM 04/25/19 Methylprednisolone [Medrol 4 mg Tablet] 4 mg PO ASDIR PRN #32 tablet 04/30/19 History of Present Illiness History of Present Illness: ARIELLA JUAREZ is a 54 year old female known to my practice who presented to the Ed due to worsening difficulty with breathing and left sided chest pain. 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 She reported associated intermittent chills but no definite fever. There is associated abdominal fullness, difficulty with eating due to subsequent breathing difficulty and long standing constipation. She denied any nausea or vomiting. No difficulty with voiding. She reported continue bilateral lower extremities swelling that worsen with erect position and ambulation. She has history of significant rectal prola pse. She denied any nasal or sinus congestion, headache or dizziness. She admitted to continue cigarette smoking. Her initial ED evaluation was significant for tachycardia, tachypnea, and chest X ray that revealed COPD with tiny left pleural effusion. Her morbidities are as listed below. She was advised hospitalization for further evaluation and management. Hospital Course Hospital Course: She was admitted for exacerbated COPD and managed with IV Solu Medrol with bronchodilators. Her blood culture was no growth x 5 days. She did not produce adequate sputum for further evaluation during this admission. She reported improvement in her presenting symptoms with gradual tapering of her Solu Medrol dose. She will be discharged home on tapering dose of Methylprednisolone over next several days. She will follow up in the office as instructed upon discharge. Physical Exam Vital Signs: Temp Pulse Resp BP Pulse Ox 97.9 F 104 H 18 125/78 96 04/30/19 07:16 04/30/19 07:16 04/30/19 07:16 04/30/19 07:16 04/30/19 07:16 Intake & Output 04/29/19 04/30/19 05/01/19 06:59 06:59 06:59 Intake Total 1030 870 Balance 1030 870 Weight 69 kg 69.6 kg General appearance: PRESENT: mild distress - remain on supplemental oxygen via nasal cannula at 2L/min Head exam: PRESENT: atraumatic, normocephalic Eye exam: PRESENT: conjunctiva pink. ABSENT: pallor, scleral icterus Ear exam: PRESENT: normal external ear exam Mouth exam: PRESENT: moist Respiratory exam: PRESENT: clear to auscultation darinel Cardiovascular exam: PRESENT: RRR. ABSENT: diastolic murmur, rubs, systolic murmur GI/Abdominal exam: PRESENT: normal bowel sounds, soft. ABSENT: distended, guarding, mass, organomegaly, rebound, tenderness Extremities exam: ABSENT: pedal edema Neurological exam: PRESENT: alert, awake, oriented to person, oriented to place, oriented to time, oriented to situation, CN II-XII grossly intact. ABSENT: motor sensory deficit Psychiatric exam: PRESENT: appropriate affect, normal mood. ABSENT: homicidal ideation, suicidal ideation Skin exam: PRESENT: dry, warm Results Laboratory Results: WBC 11.3 10^3/uL (4.0-10.5) H 04/29/19 04:03 RBC 3.47 10^6/uL (3.72-5.28) L 04/29/19 04:03 Hgb 11.6 g/dL (12.0-15.5) L 04/29/19 04:03 Hct 35.4 % (36.0-47.0) L 04/29/19 04:03 MCV 102 fl (80-97) H 04/29/19 04:03 MCH 33.5 pg (27.0-33.4) H 04/29/19 04:03 MCHC 32.8 g/dL (32.0-36.0) 04/29/19 04:03 RDW 14.4 % (11.5-14.0) H 04/29/19 04:03 Plt Count 254 10^3/uL (150-450) 04/29/19 04:03 Lymph % (Auto) Not Reportable 04/29/19 04:03 [place] % (Auto) Not Reportable 04/29/19 04:03 Eos % (Auto) Not Reportable 04/29/19 04:03 Baso % (Auto) Not Reportable 04/29/19 04:03 Absolute Neuts (auto) Not Reportable 04/29/19 04:03 Absolute Lymphs (auto) Not Reportable 04/29/19 04:03 Absolute Monos (auto) Not Reportable 04/29/19 04:03 Absolute Eos (auto) Not Reportable 04/29/19 04:03 Absolute Basos (auto) Not Reportable 04/29/19 04:03 Total Counted 100 04/29/19 04:03 Seg Neutrophils % Not Reportable 04/29/19 04:03 Seg Neuts % (Manual) 79 % (42-78) H 04/29/19 04:03 Band Neutrophils % 1 % (3-5) L 04/29/19 04:03 Lymphocytes % (Manual) 16 % (13-45) 04/29/19 04:03 Monocytes % (Manual) 4 % (3-13) 04/29/19 04:03 Eosinophils % (Manual) 0 % (0-6) 04/29/19 04:03 Basophils % (Manual) 0 % (0-2) 04/29/19 04:03 Abs Neuts (Manual) 9.0 10^3/uL (1.7-8.2) H 04/29/19 04:03 Abs Lymphs (Manual) 1.8 10^3/uL (0.5-4.7) 04/29/19 04:03 Abs Monocytes (Manual) 0.5 10^3/uL (0.1-1.4) 04/29/19 04:03 Absolute Eos (Manual) 0.0 10^3/uL (0.0-0.6) 04/29/19 04:03 Abs Basophils (Manual) 0.0 10^3/uL (0.0-0.2) 04/29/19 04:03 Platelet Comment ADEQUATE 04/29/19 04:03 Polychromasia SLIGHT 04/29/19 04:03 Poikilocytosis SLIGHT 04/29/19 04:03 Target Cells SLIGHT 04/29/19 04:03 Sodium 141.0 mmol/L (137-145) 04/29/19 04:03 Potassium 4.2 mmol/L (3.6-5.0) 04/29/19 04:03 Chloride 108 mmol/L (98-107) H 04/29/19 04:03 Carbon Dioxide 26 mmol/L (22-30) 04/29/19 04:03 Anion Gap 7 (5-19) 04/29/19 04:03 BUN 21 mg/dL (7-20) H 04/29/19 04:03 Creatinine 0.73 mg/dL (0.52-1.25) 04/29/19 04:03 Est GFR ( Amer) > 60 (>60) 04/29/19 04:03 Est GFR (MDRD) Non-Af > 60 (>60) 04/29/19 04:03 Glucose 155 mg/dL (75-110) H 04/29/19 04:03 Calcium 8.5 mg/dL (8.4-10.2) 04/29/19 04:03 Magnesium 2.1 mg/dL (1.6-2.3) 04/25/19 06:32 Total Bilirubin 0.3 mg/dL (0.2-1.3) 04/25/19 06:32 Direct Bilirubin 0.1 mg/dL (0.0-0.4) 04/25/19 06:32 Neonat Total Bilirubin Not Reportable 04/25/19 06:32 Neonat Direct Bilirubin Not Reportable 04/25/19 06:32 Neonat Indirect Bili Not Reportable 04/25/19 06:32 AST 22 U/L (14-36) 04/25/19 06:32 ALT 36 U/L (<35) 04/25/19 06:32 Alkaline Phosphatase 46 U/L (38-126) 04/25/19 06:32 Creatine Kinase 87 U/L (30-135) 04/25/19 06:32 CK-MB (CK-2) 2.44 ng/mL (<4.55) 04/25/19 06:32 Troponin I 0.016 ng/mL 04/25/19 06:32 NT-Pro-B Natriuret Pep 110 pg/mL (<125) 04/25/19 06:32 Total Protein 6.7 g/dL (6.3-8.2) 04/25/19 06:32 Albumin 3.9 g/dL (3.5-5.0) 04/25/19 06:32 Urine Color NEAL 04/25/19 08:33 Urine Appearance CLOUDY 04/25/19 08:33 Urine pH 5.0 (5.0-9.0) 04/25/19 08:33 Ur Specific [place] 1.035 04/25/19 08:33 Urine Protein 100 mg/dL (NEGATIVE) H 04/25/19 08:33 Urine Glucose (UA) NEGATIVE mg/dL (NEGATIVE) 04/25/19 08:33 Urine Ketones TRACE mg/dL (NEGATIVE) H 04/25/19 08:33 Urine Blood MODERATE (NEGATIVE) H 04/25/19 08:33 Urine Nitrite NEGATIVE (NEGATIVE) 04/25/19 08:33 Urine Bilirubin NEGATIVE (NEGATIVE) 04/25/19 08:33 Urine Urobilinogen 2.0 mg/dL (<2.0) H 04/25/19 08:33 Ur Leukocyte Esterase NEGATIVE (NEGATIVE) 04/25/19 08:33 Urine WBC (Auto) 18 /HPF 04/25/19 08:33 Urine RBC (Auto) 105 /HPF 04/25/19 08:33 Squamous Epi Cells Auto 8 /HPF 04/25/19 08:33 Calcium Oxalate Cr Auto MODERATE /HPF 04/25/19 08:33 Urine Mucus (Auto) MANY /LPF 04/25/19 08:33 Urine Ascorbic Acid NEGATIVE (NEGATIVE) 04/25/19 08:33 04/25/19 06:32 CK-MB (CK-2) 2.44 Troponin I 0.016 NT-Pro-B Natriuret Pep 110 Impressions: Chest X-Ray 04/25/19 04:58 IMPRESSION: COPD. Tiny left effusion. copyright 2011 [employer]- All Rights Reserved Plan Health Concerns: Continue cigarette smoking with high readmission risk for COPD. Plan of Treatment: Emphasized smoking cessation. Compliance with medication a prescribed. Goals: Smoking cessation and medication compliance to reduce readmission risk. Time Spent: Greater than 30 Minutes - Bedside counseling on smoking cessation was done during this bedside discharge visit. Stroke Is this a Stroke Patient?: No Acute Heart Failure - Is this a Heart Failure Patient?: No
== END 2019-04-30 09:21 | disposition home or self-care (01) | DRG 192 ==
LOC: ER 04:46 → EH 09:24 → 3W 10:14
PROVIDERS: ADMIT Internal Medicine Geriatric Medicine; ATTEND Internal Medicine Geriatric Medicine
DX: J44.1 Chronic obstructive pulmonary disease with (acute) exacerbation (principal); I50.9 Heart failure, unspecified; E78.5 Hyperlipidemia, unspecified; F17.210 Nicotine dependence, cigarettes, uncomplicated; I11.0 Hypertensive heart disease with heart failure; K59.01 Slow transit constipation; I89.0 Lymphedema, not elsewhere classified; E87.6 Hypokalemia; K62.3 Rectal prolapse; K21.9 Gastro-esophageal reflux disease without esophagitis; Z90.13 Acquired absence of bilateral breasts and nipples; Z82.49 Family history of ischemic heart disease and other diseases of the circulatory system; Z79.51 Long term (current) use of inhaled steroids; Z79.899 Other long term (current) drug therapy; Z88.8 Allergy status to other drugs, medicaments and biological substances; Z86.73 Personal history of transient ischemic attack (TIA), and cerebral infarction without residual deficits; Z96.612 Presence of left artificial shoulder joint
CPT/HCPCS: 36415; 71045; 80048; 80053; 81001; 82550; 82553; 83735; 83880; 84484; 85025; 87040; 93005; 93010; 94640; 96374; 99285; J1956; J2920; J2930; J3490; J7620

== ENCOUNTER → 2019-05-22 | Outpatient (CLI) | payer MEDICAID, MEDICARE ==
--- NOTE | 2019-05-22 13:28 | RADIOLOGY REPORT (SQ) ---
EXAM DESCRIPTION: CT CHEST WITHOUT COMPLETED DATE/TIME: 05/22/2019 10:48 am REASON FOR STUDY: PULMONARY NODULE (R91.1) R91.1 SOLITARY PULMONARY NODULE COMPARISON: 03/16/2019 TECHNIQUE: CT scan performed of the chest without intravenous contrast. Images reviewed with lung, soft tissue and bone windows. Reconstructed coronal and sagittal MPR images reviewed. All images st ored on PACS. All CT scanners at this facility use dose modulation, iterative reconstruction, and/or weight based d osing when appropriate to reduce radiation dose to as low as reasonably achievable (ALARA). [facility]: Dose Right [facility]: CareDose [facility]: Dose Right [facility]: Teradose 4D [facility]: Smart [employer] RADIATION DOSE: CT Rad equipment meets quality standard of care and radiation dose reduction techniq ues were employed. CTDIvol: 4.8 mGy. DLP: 199 mGy-cm. mGy. LIMITATIONS: No technical limitations. FINDINGS: LUNGS AND PLEURA: 10.2 x 16.6 mm right upper lobe pulmonary nodule is larger than on the p rior study. Centrilobular and paraseptal emphysematous changes are present. HILAR AND MEDIASTINAL STRUCTURES: There are some small nonspecific mediastinal lymph nodes. HEART AND VASCULAR STRUCTURES: No aneurysm. No pericardial effusion. UPPER ABDOMEN: No significant findings. Limited exam. THYROID AND OTHER SOFT TISSUES: No masses. No adenopathy. BONES: No significant finding. HARDWARE: None in the chest. OTHER: No other significant findings. IMPRESSION: Right upper lobe pulmonary nodule that is larger than on the prior study. Mild pulmonar y emphysema. COMMENT: Consider PET-CT. TECHNICAL DOCUMENTATION: JOB ID: [id number] Quality ID # [id number]: Final reports with documentation of one or more dose reduction techniques (e.g., Au tomated exposure control, adjustment of the mA and/or kV according to patient size, use of iterative reconstruction technique) 2010 [employer]- All Rights Reserved Reading location - IP/workstation name: [email or web address]
== END ==
LOC: RAD 10:27
PROVIDERS: ATTEND Internal Medicine Critical Care Medicine
DX: R91.1 Solitary pulmonary nodule (principal); J43.2 Centrilobular emphysema; R91.8 Other nonspecific abnormal finding of lung field
CPT/HCPCS: 71250

== ENCOUNTER → 2019-06-04 | Outpatient (CLI) | payer MEDICARE ==
--- NOTE | 2019-06-05 13:12 | RADIOLOGY REPORT (SQ) ---
EXAM DESCRIPTION: PET CT SKULL/THIGH COMPLETED DATE/TIME: 06/04/2019 9:02 pm REASON FOR STUDY: SOLITARY PULMONARY NODULE (R91.1) R91.1 SOLITARY PULMONARY NODULE R91.8 OTHER NO NSPECIFIC ABNORMAL FINDING OF LUNG FIELD J44.9 CHRONIC OBSTRUCTIVE PULMONARY DISEASE, UNSPECIFIED COMPARISON: CT of the chest without contrast from 05/22/2019 and PET from 08/07/2018. RADIONUCLIDE AND DOSE: 8.89 mCi F18 FDG The route of agent administration: Intravenous FASTING BLOOD SUGAR: 83 mg/dl CONTRAST TYPE AND DOSE: No CT contrast given. TECHNIQUE: Blood glucose level was verified. Above dose of FDG was injected intravenously. 2-D seg mented attenuation correction images were obtained from the base of the skull to the midthighs. Nonc ontrast CT images were obtained for attenuation correction and fusion with emission images. CT image s were performed without oral or intravenous contrast and are not sensitive for parenchymal lesions. A series of overlapping emission PET images were obtained. [facility] by the radiologist. Images stored on PACS. LIMITATIONS: None. FINDINGS: HEAD AND NECK: No areas of abnormal metabolic activity in the soft tissues of the head and neck. CHEST: The spiculated nodule associated with a cystic space in the right upper lobe (image 57 of seri es 3D) that measures 18 x 9 mm demonstrates avid FDG uptake with a maximum SUV of 5.7. There is no o ther focus of abnormal FDG uptake in the thorax. ABDOMEN AND PELVIS: The liver demonstrates heterogeneous non focal FDG uptake with an average SUV of 2.2. There is expected physiologic activity throughout the gastrointestinal and genitourinary tracts . No areas of abnormal metabolic activity are identified in the abdomen and pelvis. PROXIMAL LOWER EXTREMITIES: No areas of abnormal metabolic activity in the soft tissues of the lower extremities. BONES: No areas of abnormal metabolic activity in the imaged axial and appendicular skeleton. ADDITIONAL CT FINDINGS: Status post bilateral mastectomies and left axillary lymph node dissection. There is a hiatal hernia. The morphology of the liver is non cirrhotic. There is no CT evidence of hepatic steatosis. The spleen is normal in size. There is no abnormality of the pancreas or adrenal glands. The gallbladder is present. There is a 2 mm calculus within an left interpolar calyx. The re is no associated hydronephrosis, hydroureter or ureterolithiasis. The abdominal aorta is normal i n caliber. There is no retroperitoneal adenopathy, hemorrhage or mass. There is no bowel obstructio n, bowel wall thickening, pericolonic dx/perienteric inflammation. There is no mesenteric or omental inflammation. The urinary bladder is distended and normal in appearance. There is no abnormality o f the uterus or adnexa that is apparent on CT. There is no acute osseous abnormality. OTHER: No other findings. IMPRESSION: Hypermetabolic spiculated nodule associated with a cystic space in the right upper lobe (image 57 of series 3) that measures 18 x 9 mm demonstrates avid FDG uptake and is concerning for a m alignant neoplasm. There is no metabolic evidence of metastatic disease. TECHNICAL DOCUMENTATION: JOB ID: [id number] [employer]- All Rights Reserved Reading location - IP/workstation name: [email or web address]
== END ==
LOC: RAD 09:10
PROVIDERS: ATTEND Internal Medicine Critical Care Medicine
DX: R91.1 Solitary pulmonary nodule (principal); R91.8 Other nonspecific abnormal finding of lung field; J44.9 Chronic obstructive pulmonary disease, unspecified; Z72.0 Tobacco use
CPT/HCPCS: 78815; A9552

== ENCOUNTER → 2019-10-24 | Outpatient (CLI) | payer MEDICARE ==
--- NOTE | 2019-10-24 10:19 | RADIOLOGY REPORT (SQ) ---
EXAM DESCRIPTION: U/S ABDOMEN LIMITED W/O DOP IMAGES COMPLETED DATE/TIME: 10/24/2019 9:57 am REASON FOR STUDY: R18.8 OTHER ASCITES R18.8 OTHER ASCITES COMPARISON: None. TECHNIQUE: Limited Static and real time liz scale imaging performed of the 4 abdominal quadrants an d the midline. LIMITATIONS: None. FINDINGS: ASCITES: None identified. OTHER: No other significant finding. IMPRESSION: NO EVIDENCE FOR ASCITES. TECHNICAL DOCUMENTATION: JOB ID: [id number] 2010 [employer]- All Rights Reserved Reading location - IP/workstation name: [email or web address]
== END ==
LOC: RAD 09:00
PROVIDERS: ATTEND Internal Medicine Geriatric Medicine
DX: R18.8 Other ascites (principal)
CPT/HCPCS: 76705

== ENCOUNTER 2019-11-07 19:13 | Emergency (ER) | payer MEDICARE ==
[2019-11-07] MEDS ORDERED: NORMAL SALINE 500 ML IV ONE (20:13)
--- NOTE | 2019-11-07 20:16 | ER Document Report ---
ED Medical Screen (RME) - General Chief Complaint: Abdominal Pain Stated Complaint: ABDOMINAL PAIN,PINK URINE,COUGHING BLOOD Time Seen by Provider: 11/07/19 20:08 Primary Care Provider: LUKASZ ORNELAS MD [Primary Care Provider] - Follow up as needed Mode of Arrival: Wheelchair Information source: Patient Notes: HPI; 54-year-old female presents emergency room complaining of diffuse abdominal pain with diarrhea that started earlier today intermittent chest pain. Describes her pain as sharp and crampy. Was on antibiotics about a week ago for upper respiratory infection. Denies any bad food. No one else at home is ill. Also noticed that her urine was pink-tinged earlier today. Has not taken any medications for her symptoms. PE: Alert and oriented x3, moderate distress noted. Abdomen distended diffuse tenderness noted. Normal bowel sounds x4. No guarding, no rebound, lungs are diminished in the bases, heart: Tachycardic without murmurs rubs or gallops. I have greeted and performed a rapid initial assessment of this patient. A comprehensive ED assessment and evaluation of the patient, analysis of test results and completion of medical decision making process will be conducted by an additional ED providers. TRAVEL OUTSIDE OF THE [place] IN LAST 30 DAYS: No - Related Data Allergies/Adverse Reactions: prednisone [Prednisone] Adverse Reaction (Intermediate, Verified 04/02/19 11:17) Home Medications: rosuvastatin, fexofenadine, xarelto, furosemide, linzess Past Medical History - Social History Chew tobacco use (# tins/day): No Frequency of alcohol use: None Drug Abuse: None - Past Medical History Cardiac Medical History: Reports: Hx Congestive Heart Failure, Hx Hypercholesterolemia Denies: Hx Coronary Artery Disease, Hx Heart Attack, Hx Hypertension Pulmonary Medical History: Reports: Hx Asthma, Hx Bronchitis, Hx COPD, Hx Pneumonia Denies: Hx Respiratory Failure, Hx Sleep Apnea, Hx Tuberculosis Neurological Medical History: Reports: Hx Cerebrovascular Accident - WEAKNESS ON LEFT SIDE. Denies: Hx Seizures, Hx Parkinson's Disease Endocrine Medical History: Renal/ Medical History: Reports: Hx Ovarian Cysts. Denies: Hx Peritoneal Dialysis Malignancy Medical History: Reports: Hx Breast Cancer GI Medical History: Reports: Hx Gastroesophageal Reflux Disease, Hx Hiatal Hernia Musculoskeltal Medical History: Denies Hx Arthritis, Denies Hx Multiple Sclerosis, Denies Hx Systemic Lupus Erythematosus Skin Medical History: Reports Hx Psoriasis Psychiatric Medical History: Denies: Hx Dementia, Hx Depression Infectious Medical History: Denies: Hx HIV Past Surgical History: Reports: Hx Mastectomy - bilat 2010, Hx Orthopedic Surgery - left shoulder replacement 09/10. Denies: Hx Hysterectomy, Hx Pacemaker - Immunizations Immunizations up to date: Yes Hx Diphtheria, Pertussis, Tetanus Vaccination: No Physical Exam - Vital signs Vitals: Temp Pulse Resp BP Pulse Ox 98.9 F 115 H 18 108/80 92 11/07/19 19:18 11/07/19 19:18 11/07/19 19:18 11/07/19 19:18 11/07/19 19:18 Course - Vital Signs Vital signs: Temp Pulse Resp BP Pulse Ox 98.9 F 119 H 18 108/80 98 11/07/19 20:09 11/07/19 20:13 11/07/19 19:18 11/07/19 19:18 11/07/19 20:13 Doctor's Discharge - Discharge Referrals: LUKASZ ORNELAS MD [Primary Care Provider] - Follow up as needed
[2019-11-07] MEDS ORDERED: MORPHINE SULFATE 10 MG/ML INJ IV ONE (20:50)
[2019-11-07] MEDS ORDERED: ONDANSETRON HCL INJ/PF 4 MG/2 ML SDV IV ONE (20:50)
--- NOTE | 2019-11-07 20:57 | RADIOLOGY REPORT (SQ) ---
XR CHEST 2 VIEWS EXAM DATE: 11/07/2019 8:14 PM CDT HISTORY: Chest pain. COMPARISON: 04/25/2019 FINDINGS: The heart size is within normal limits. There is no pulmonary vascular congestion. No focal consolidation or pneumothorax. There is chronic pleural thickening at the lung bases with a trace left pleural effusion. Left shoulder arthroplasty hardware is noted. Left axillary clips are seen. IMPRESSION: 1. No evidence of acute lymphoid disease. 2. Chronic changes in the left lung.
--- NOTE | 2019-11-07 20:57 | ER Document Report ---
ED General - General Chief Complaint: Abdominal Pain Stated Complaint: ABDOMINAL PAIN,PINK URINE,COUGHING BLOOD Time Seen by Provider: 11/07/19 20:08 Primary Care Provider: LUKASZ ORNELAS MD [Primary Care Provider] - Follow up as needed Mode of Arrival: Wheelchair TRAVEL OUTSIDE OF THE [place] IN LAST 30 DAYS: No - HPI Notes: Patient is a 54-year-old female who presents the emergency department for evaluation of abdominal pain, diarrhea, hematuria. She states she started with severe abdominal pain, she describes as a cramping, at about 10:00 this morning. It started in the low abdomen and radiated up into the entire abdomen. She states it was severe for about half an hour, then was somewhat relieved. She states she had 3 episodes of diarrhea. The patient admits to chronic constipation. She takes Linzess daily, but did not take any doses today or yesterday. She did take a stool softener, states that sometimes "they were hard pieces in her diarrhea." She denies any melena or hematochezia. She has not had no abnormal foods, no abnormal travels, no sick contacts. She was recently on antibiotic therapy. She denies any fevers or chills. No nausea or vomiting. She does note that during 2 episodes of urination today she saw pink tinge at the end of her urine stream. She denies any dysuria or urinary frequency beyond her regular from taking Lasix. - Related Data Allergies/Adverse Reactions: prednisone [Prednisone] Adverse Reaction (Intermediate, Verified 04/02/19 11:17) Home Medications: rosuvastatin, fexofenadine, xarelto, furosemide, linzess, singulair, verapamil, anastrazole, inhalers for COPD Past Medical History - General Information source: Patient - Social History Smoking Status: Current Some Day Smoker Chew tobacco use (# tins/day): No Frequency of alcohol use: None Drug Abuse: None Family History: CAD, Hypertension Patient has homicidal ideation: No - Past Medical History Cardiac Medical History: Reports: Hx Congestive Heart Failure, Hx Hypercholesterolemia Denies: Hx Coronary Artery Disease, Hx Heart Attack, Hx Hypertension Pulmonary Medical History: Reports: Hx Asthma, Hx Bronchitis, Hx COPD, Hx Pneumonia Denies: Hx Respiratory Failure, Hx Sleep Apnea, Hx Tuberculosis Neurological Medical History: Reports: Hx Cerebrovascular Accident - WEAKNESS ON LEFT SIDE. Denies: Hx Seizures, Hx Parkinson's Disease Endocrine Medical History: Renal/ Medical History: Reports: Hx Ovarian Cysts. Denies: Hx Peritoneal Dialysis Malignancy Medical History: Reports: Hx Breast Cancer, Hx Lung Cancer GI Medical History: Reports: Hx Gastroesophageal Reflux Disease, Hx Hiatal Hernia, Hx Irritable Bowel Musculoskeletal Medical History: Denies Hx Arthritis, Denies Hx Multiple Sclerosis, Denies Hx Systemic Lupus Erythematosus Skin Medical History: Reports Hx Psoriasis Psychiatric Medical History: Denies: Hx Dementia, Hx Depression Infectious Medical History: Denies: Hx HIV Past Surgical History: Reports: Hx Mastectomy - bilat 2010, Hx Orthopedic Surgery - left shoulder replacement 09/10. Denies: Hx Hysterectomy, Hx Pacemaker - Immunizations Immunizations up to date: Yes Hx Diphtheria, Pertussis, Tetanus Vaccination: No Hx Pneumococcal Vaccination: 06/26/11 Physical Exam - Vital signs Vitals: Temp Pulse Resp BP Pulse Ox 98.9 F 115 H 18 108/80 92 11/07/19 19:18 11/07/19 19:18 11/07/19 19:18 11/07/19 19:18 11/07/19 19:18 - Notes Notes: Vital signs reviewed, please refer to chart. Head is normocephalic, atraumatic. Pupils equal round, reactive to light. Neck is supple without meningismus. Heart is regular rate and rhythm. Lungs are clear to auscultation bilaterally. Abdomen is moderately distended and diffusely tender, with focal severe tenderness in the right lower quadrant, positive voluntary guarding, no rebound,, normoactive bowel sounds throughout. Extremities without cyanosis, clubbing. Posterior calves are nontender. Peripheral pulses are equal. Skin is warm and dry. Patient is awake, alert, oriented x3. Moves all 4 extremities spontaneously. No gross facial asymmetry. Course - Re-evaluation Re-evalutation: 11/07/19 20:58 Patient presents to the emergency department for evaluation. She was seen through triage. Exam in the bed showed significant focal right lower quadrant pain. Given this information I am concerned about a significant intra-abdominal process like appendicitis. The patient is given pain medication, nausea medication. CT scan is ordered. I explained to the patient that she should remain n.p.o. throughout her stay and she voiced understanding. She is stable, we will continue to monitor. 11/08/19 00:27 Patient feeling improved after medication. Her laboratory investigations revealed large blood and white blood cells in her urine. Her findings are consistent with urinary tract infection. CT with IV contrast failed to reveal any significant abnormalities. She does have a large amount of oxalate crystals in her urine. She is not have any focal findings consistent with unilateral ureterolithiasis, no signs of ureteral obstruction on CT scan. Patient was notified of the crystals in her urine, and the possibility of the formation of a kidney stone. At any rate, she was given Rocephin. She does not have any previous urine cultures that grew any bacteria in the past. I will send her home with a prescription for Keflex and close follow-up. She is to return to the ED with worsening or new concerning symptoms of any sort. - Vital Signs Vital signs: Temp Pulse Resp BP Pulse Ox 98.9 F 119 H 18 108/80 98 11/07/19 20:09 11/07/19 20:13 11/07/19 19:18 11/07/19 19:18 11/07/19 20:13 - Laboratory Result Diagrams: 11/07/19 21:35 11/07/19 21:35 Laboratory results interpreted by me: 11/07/19 11/07/19 21:35 23:06 Chloride 108 H Alkaline Phosphatase 37 L Urine Protein 100 H Urine Blood LARGE H - Diagnostic Test Radiology reviewed: Image reviewed, Reports reviewed Discharge - Discharge Clinical Impression: Generalized abdominal pain Urinary tract infection Qualifiers: Urinary tract infection type: site unspecified Hematuria presence: with hematuria Qualified Code(s): N39.0 - Urinary tract infection, site not specified; R31.9 - Hematuria, unspecified Condition: Stable Disposition: HOME, SELF-CARE Instructions: Abdominal Pain ([facility]), Urinary Tract Infection ([facility]), Cephalexin ([facility]) Additional Instructions: Findings today were most consistent with a urinary tract infection. You have been given a dose of IV antibiotics. Please take the Keflex as directed, starting tomorrow. There were a large amount of crystals in your urine, which could put you at risk for kidney stones. Please stay well-hydrated, and follow- up with your doctor for further care. If you develop fevers, vomiting, increased pain, or any other new or concerning symptoms, please return immedia tely to the emergency department for evaluation. Referrals: LUKASZ ORNELAS MD [Primary Care Provider] - Follow up as needed
[2019-11-07 21:53] LABS: ABSOLUTE BASOPHILS # (AUTO) 0.1 10^3/uL (0.0-0.2); ABSOLUTE EOSINOPHILS # (AUTO) 0.3 10^3/uL (0.0-0.6); ABSOLUTE LYMPHOCYTES (AUTO) 2.8 10^3/uL (0.5-4.7); ABSOLUTE MONOCYTES (AUTO) 0.7 10^3/uL (0.1-1.4); ABSOLUTE NEUT (AUTO) 3.6 10^3/uL (1.7-8.2); BASOPHILS % (AUTO) 1.2 % (0-2); EOSINOPHILS % (AUTO) 3.7 % (0-6); HEMATOCRIT 36.7 % (36.0-47.0); HEMOGLOBIN 12.4 g/dL (12.0-15.5); LYMPHOCYTES % (AUTO) 37.6 % (13-45); MEAN CORPUSCULAR HGB CONC 33.6 g/dL (32.0-36.0); MEAN CORPUSCULAR VOLUME 95 fl (80-97); MONOCYTES % (AUTO) 8.9 % (3-13); PLATELET COUNT 338 10^3/uL (150-450); RED BLOOD COUNT 3.86 10^6/uL (3.72-5.28); RED CELL DISTRIBUTION WIDTH 13.8 % (11.5-14.0); SEGMENTED NEUTROPHILS % (AUTO) 48.6 % (42-78); TOTAL CELLS COUNTED % (AUTO) 100 %; WHITE BLOOD COUNT 7.5 10^3/uL (4.0-10.5)
[2019-11-07 22:14] LABS: ALBUMIN 3.9 g/dL (3.5-5.0); ALKALINE PHOSPHATASE 37 U/L (38-126); ANION GAP 8 (5-19); ASPARTATE AMINO TRANSFERASE 25 U/L (14-36); BILIRUBIN,TOTAL 0.4 mg/dL (0.2-1.3); BLOOD UREA NITROGEN 10 mg/dL (7-20); CALCIUM 9.3 mg/dL (8.4-10.2); CARBON DIOXIDE 22 mmol/L (22-30); CHLORIDE 108 mmol/L (98-107); GLUCOSE 95 mg/dL (75-110); POTASSIUM 3.6 mmol/L (3.6-5.0); TOTAL PROTEIN 7.2 g/dL (6.3-8.2)
--- NOTE | 2019-11-07 23:03 | EKG REPORT ---
SEVERITY:- BORDERLINE ECG - SINUS TACHYCARDIA BORDERLINE PROLONGED QT INTERVAL : Confirmed by: Otilio Lamb 07-Nov-2019 23:02:17
--- NOTE | 2019-11-07 23:39 | RADIOLOGY REPORT (SQ) ---
EXAM DESCRIPTION: CT ABDOMEN PELVIS WITH IV CONTRAST COMPLETED DATE/TME: 11/07/2019 20:50 CLINICAL HISTORY: 54 years, Female, RLQ pain, eval for appendicitis. CREAT 0.64 COMPARISON: 01/27/2017 CT TECHNIQUE: 643 Images stored on PACS. All CT scanners at this facility use dose modulation, iterative reconstruction, and/or weight based dosing when appropriate to reduce radiation dose to as low as reasonably achievable (ALARA). [facility]: Dose Right [facility]: CareDose [facility]: Dose Right [facility]: Teradose 4D [facility]: [employer] LIMITATIONS: None. FINDINGS: Limited evaluation of the lung bases shows minor scarring in each lung base. Osseous structures are grossly intact. Fatty infiltrative change to the liver. The spleen, adrenal glands, pancreas, kidneys are unremarkable. The gallbladder is present. Mild atheromatous change. No gross evidence for bowel obstruction. Normal appendix. No free air or free fluid IMPRESSION: No acute intra-abdominal/pelvic process TECHNICAL DOCUMENTATION: Quality ID # [id number]: Final reports with documentation of one or more dose reduction techniques (e.g., Automated exposure control, adjustment of the mA and/or kV according to patient size, use of iterative reconstruction technique) copyright 2011 [employer]- All Rights Reserved
[2019-11-08 00:17] LABS: APPEARANCE,URINE CLOUDY; BILIRUBIN,URINE NEGATIVE (NEGATIVE); CALCIUM OXALATE CRYSTALS,URINE TOO NUMEROUS TO CNT /HPF; GLUCOSE, URINE NEGATIVE (NEGATIVE); KETONES,URINE NEGATIVE (NEGATIVE); LEUKOCYTE ESTERASE,URINE NEGATIVE (NEGATIVE); NITRITE,URINE NEGATIVE (NEGATIVE); PROTEIN,URINE 100 mg/dL (NEGATIVE); URINE SPECIFIC GRAVITY 1.047; UROBILINOGEN,URINE NEGATIVE mg/dL (<2.0)
[2019-11-08 00:19] LABS: COLOR,URINE BROWN
[2019-11-08] MEDS ORDERED: CEFTRIAXONE INJ 1000 MG VIAL ONE (00:46)
[2019-11-08] MEDS ORDERED: CEFTRIAXONE 1 GM/D5W RTU 1 GM/50 ML RTUPB IV ONE (01:00)
[2019-11-08 01:13] VITALS: BP 112/83
== END 2019-11-08 01:30 | disposition home or self-care (01) ==
LOC: ER 19:13
DX: N39.0 Urinary tract infection, site not specified (principal); R31.0 Gross hematuria; R19.7 Diarrhea, unspecified; K59.09 Other constipation; R10.84 Generalized abdominal pain; R10.817 Generalized abdominal tenderness; J44.9 Chronic obstructive pulmonary disease, unspecified; I50.9 Heart failure, unspecified; E78.00 Pure hypercholesterolemia, unspecified; Z79.899 Other long term (current) drug therapy; Z79.01 Long term (current) use of anticoagulants; Z85.3 Personal history of malignant neoplasm of breast; Z85.118 Personal history of other malignant neoplasm of bronchus and lung; Z86.73 Personal history of transient ischemic attack (TIA), and cerebral infarction without residual deficits
CPT/HCPCS: 93005; 99284; 96375; 96365; 36415; 87086; 83690; 83735; 85025; 80053; 81001; 84484; 71046; 74177; 93010; J2270; J2405; J0696

== ENCOUNTER 2020-04-22 16:19 | Emergency (ER) | payer MEDICARE ==
--- NOTE | 2020-04-22 16:43 | ER Document Report ---
ED Medical Screen (RME) - General Chief Complaint: Chest Pain > 30 Stated Complaint: BREATHING PROBLEM, CHEST PAIN, CONGESTION Time Seen by Provider: 04/22/20 16:36 Primary Care Provider: LUKASZ ORNELAS MD [Primary Care Provider] - Follow up as needed Information source: Patient Notes: 55-year-old female presented to ED with chest tightness and shortness of breath. She does have a history of COPD CHF lung cancer and breast cancer. She states she also feels like she might have constipation. She states she has frequent constipation with her IBS. She is coming today for the chest tightness and shortness of breath. She states she comes in every year about this time sometimes a lot earlier for exacerbation of her CHF and COPD. We will get blood urine chest x-ray and EKG and she will be seen by another provider. I have greeted and performed a rapid initial assessment of this patient. A comprehensive ED assessment and evaluation of the patient, analysis of test results and completion of medical decision making process will be conducted by an additional ED providers. TRAVEL OUTSIDE OF THE [place] IN LAST 30 DAYS: No - Related Data Allergies/Adverse Reactions: prednisone [Prednisone] Adverse Reaction (Intermediate, Verified 04/22/20 16:35) Past Medical History - General Information source: Patient - Social History Cigarette use (# per day): Yes - Of cigarettes a day Frequency of alcohol use: None Drug Abuse: None Lives with: Family Family history: Reviewed & Not Pertinent - Past Medical History Cardiac Medical History: Reports: Hx Congestive Heart Failure, Hx Hypercholesterolemia, Hx Hypertension Pulmonary Medical History: Reports: Hx Asthma, Hx Bronchitis, Hx COPD, Hx Pneumonia Neurological Medical History: Reports: Hx Cerebrovascular Accident - WEAKNESS ON LEFT SIDE Endocrine Medical History: Reports: None Renal/ Medical History: Reports: Hx Ovarian Cysts Malignancy Medical History: Reports: Hx Breast Cancer, Hx Lung Cancer GI Medical History: Reports: Hx Gastroesophageal Reflux Disease, Hx Hiatal Hernia, Hx Irritable Bowel Musculoskeltal Medical History: Reports Hx Arthritis, Reports Hx Musculoskeletal Deformity Skin Medical History: Reports Hx Psoriasis Psychiatric Medical History: Reports: None Traumatic Medical History: Reports: Hx Pneumothorax Infectious Medical History: Past Surgical History: Reports: Hx Abdominal Surgery - benign mass removal, Hx Mastectomy - bilat 2010, Hx Orthopedic Surgery - left shoulder replacement 09/10, Other - Chest tubes - Immunizations Immunizations up to date: Yes Hx Diphtheria, Pertussis, Tetanus Vaccination: No Physical Exam - Vital signs Vitals: Temp Pulse Resp BP Pulse Ox 98.5 F 108 H 18 122/70 100 04/22/20 16:30 04/22/20 16:30 04/22/20 16:30 04/22/20 16:30 04/22/20 16:30 Course - Vital Signs Vital signs: Temp Pulse Resp BP Pulse Ox 98.5 F 108 H 18 122/70 100 04/22/20 16:30 04/22/20 16:30 04/22/20 16:30 04/22/20 16:30 04/22/20 16:30 Doctor's Discharge - Discharge Referrals: LUKASZ ORNELAS MD [Primary Care Provider] - Follow up as needed
--- NOTE | 2020-04-22 17:23 | RADIOLOGY REPORT (SQ) ---
EXAM DESCRIPTION: CHEST 2 VIEWS IMAGES COMPLETED DATE/TIME: 04/22/2020 5:14 pm REASON FOR STUDY: chest pain short of breath copd COMPARISON: 11/07/2019 EXAM PARAMETERS: NUMBER OF VIEWS: two views TECHNIQUE: Digital Frontal and Lateral radiographic views of the chest acquired. RADIATION DOSE: NA LIMITATIONS: none FINDINGS: LUNGS AND PLEURA: Hyperexpansion of the lungs. No infiltrate, effusion, or mass. MEDIASTINUM AND HILAR STRUCTURES: No masses or contour abnormalities. HEART AND VASCULAR STRUCTURES: Heart normal size. No evidence for failure. BONES: No acute findings. HARDWARE: None in the chest. OTHER: No other significant finding. IMPRESSION: Chronic lung changes with no acute cardiopulmonary finding. TECHNICAL DOCUMENTATION: JOB ID: [id number] 2010 [employer]- All Rights Reserved Reading location - IP/workstation name: [email or web address]
[2020-04-22 17:29] LABS: ABSOLUTE BASOPHILS # (AUTO) 0.1 10^3/uL (0.0-0.2); ABSOLUTE EOSINOPHILS # (AUTO) 0.2 10^3/uL (0.0-0.6); ABSOLUTE LYMPHOCYTES (AUTO) 3.3 10^3/uL (0.5-4.7); ABSOLUTE MONOCYTES (AUTO) 0.6 10^3/uL (0.1-1.4); ABSOLUTE NEUT (AUTO) 3.9 10^3/uL (1.7-8.2); BASOPHILS % (AUTO) 0.8 % (0-2); EOSINOPHILS % (AUTO) 3.1 % (0-6); HEMATOCRIT 36.9 % (36.0-47.0); HEMOGLOBIN 12.2 g/dL (12.0-15.5); LYMPHOCYTES % (AUTO) 40.4 % (13-45); MEAN CORPUSCULAR HEMOGLOBIN 31.5 pg (27.0-33.4); MEAN CORPUSCULAR VOLUME 95 fl (80-97); MONOCYTES % (AUTO) 7.2 % (3-13); PLATELET COUNT 333 10^3/uL (150-450); RED BLOOD COUNT 3.87 10^6/uL (3.72-5.28); RED CELL DISTRIBUTION WIDTH 15.3 % (11.5-14.0); SEGMENTED NEUTROPHILS % (AUTO) 48.5 % (42-78); TOTAL CELLS COUNTED % (AUTO) 100 %; WHITE BLOOD COUNT 8.1 10^3/uL (4.0-10.5)
[2020-04-22 17:45] LABS: ALBUMIN 4.1 g/dL (3.5-5.0); ALKALINE PHOSPHATASE 45 U/L (38-126); ANION GAP 11 (5-19); ASPARTATE AMINO TRANSFERASE 18 U/L (14-36); BILIRUBIN,DIRECT 0.1 mg/dL (0.0-0.4); BILIRUBIN,TOTAL 0.5 mg/dL (0.2-1.3); BLOOD UREA NITROGEN 10 mg/dL (7-20); CALCIUM 9.7 mg/dL (8.4-10.2); CARBON DIOXIDE 23 mmol/L (22-30); CHLORIDE 106 mmol/L (98-107); GLUCOSE 85 mg/dL (75-110); POTASSIUM 3.1 mmol/L (3.6-5.0); TOTAL PROTEIN 7.1 g/dL (6.3-8.2)
--- NOTE | 2020-04-22 17:54 | EKG REPORT ---
SEVERITY:- DEFECTIVE ECG - SINUS RHYTHM LEFT ATRIAL ABNORMALITY LEAD PLACEMENT ERROR V2, V3. : Confirmed by: Harvinder Allison MD 22-Apr-2020 17:53:37
[2020-04-22 17:56] LABS: NT PRO BNP 45 pg/mL (<125)
[2020-04-22 17:57] LABS: TROPONIN I < 0.012 ng/mL
--- NOTE | 2020-04-22 19:31 | ER Document Report ---
ED General - General Chief Complaint: Chest Pain > 30 Stated Complaint: BREATHING PROBLEM, CHEST PAIN, CONGESTION Time Seen by Provider: 04/22/20 16:36 Primary Care Provider: LUKASZ ORNELAS MD [Primary Care Provider] - Follow up as needed Mode of Arrival: Ambulatory Information source: Patient Notes: 04/22/20 16:41 - Nursing Note by FATOUMATA ROSENBERG [facility] Num: [id number] : 1965 Patient Age: 55 c/o SOB, pt states complaint x 1 wk and continues with chest tightness and wheezing. pt denies N/V/F, no urinary or bowel complaint. Herb Baumann OPERATIONS SCHEDULER assessing complaint and discussing continued POC with pt Initialized on 04/22/20 16:41 - END OF NOTE ED Medical Screen ([facility] notes) - General Chief Complaint: Chest Pain > 30 Stated Complaint: BREATHING PROBLEM, CHEST PAIN, CONGESTION Time Seen by Provider: 04/22/20 16:36 Primary Care Provider: LUKASZ ORNELAS MD [Primary Care Provider] - Follow up as needed Information source: Patient Notes: 55-year-old female presented to ED with chest tightness and shortness of breath. She does have a history of COPD CHF lung cancer and breast cancer. She states she also feels like she might have constipation. She states she has frequent constipation with her IBS. She is coming today for the chest tightness and shortness of breath. She states she comes in every year about this time sometimes a lot earlier for exacerbation of her CHF and COPD. We will get blood urine chest x-ray and EKG and she will be seen by another provider. Patient reports she has been using her hand-held nebulizer and her albuterol. She reports she has a hospitalization every year or so. TRAVEL OUTSIDE OF THE [place] IN LAST 30 DAYS: No - HPI Onset: Last week Onset/Duration: Sudden, Persistent Quality of pain: Achy Severity: Mild Pain Level: 1 Associated symptoms: Productive cough, Shortness of breath Exacerbated by: Deep breathing Similar symptoms previously: Yes Recently seen / treated by doctor: No - Related Data Allergies/Adverse Reactions: prednisone [Prednisone] Adverse Reaction (Intermediate, Verified 04/22/20 16:35) Past Medical History - General Information source: Patient - Social History Smoking Status: Current Some Day Smoker Cigarette use (# per day): Yes - Of cigarettes a day Chew tobacco use (# tins/day): No Smoking Education Provided: Yes Frequency of alcohol use: None Drug Abuse: None Lives with: Family Family History: CAD, Hypertension Patient has suicidal ideation: No Patient has homicidal ideation: No - Past Medical History Cardiac Medical History: Reports: Hx Congestive Heart Failure, Hx Hypercholesterolemia, Hx Hypertension Pulmonary Medical History: Reports: Hx Asthma, Hx Bronchitis, Hx COPD, Hx Pneumonia Neurological Medical History: Reports: Hx Cerebrovascular Accident - WEAKNESS ON LEFT SIDE Endocrine Medical History: Reports: None Renal/ Medical History: Reports: Hx Ovarian Cysts Malignancy Medical History: Reports: Hx Breast Cancer, Hx Lung Cancer GI Medical History: Reports: Hx Gastroesophageal Reflux Disease, Hx Hiatal Hernia, Hx Irritable Bowel Musculoskeletal Medical History: Reports Hx Arthritis, Reports Hx Musculoskeletal Deformity Skin Medical History: Reports Hx Psoriasis Psychiatric Medical History: Reports: None Traumatic Medical History: Reports: Hx Pneumothorax Infectious Medical History: Past Surgical History: Reports: Hx Abdominal Surgery - benign mass removal, Hx Mastectomy - bilat 2010, Hx Orthopedic Surgery - left shoulder replacement 09/10, Other - Chest tubes - Immunizations Immunizations up to date: Yes Hx Diphtheria, Pertussis, Tetanus Vaccination: No Hx Pneumococcal Vaccination: 06/26/11 Review of Systems - Review of Systems Constitutional: No symptoms reported EENT: No symptoms reported Cardiovascular: No symptoms reported Respiratory: See HPI, Cough, Wheezing Gastrointestinal: No symptoms reported Genitourinary: No symptoms reported Female Genitourinary: No symptoms reported Musculoskeletal: No symptoms reported Skin: No symptoms reported Hematologic/Lymphatic: No symptoms reported Neurological/Psychological: See HPI, Weakness Physical Exam - Vital signs Vitals: Temp Pulse Resp BP Pulse Ox 98.5 F 108 H 18 122/70 100 04/22/20 16:30 04/22/20 16:30 04/22/20 16:30 04/22/20 16:30 04/22/20 16:30 Interpretation: Normal, Tachycardic - General General appearance: Appears well, Alert - HEENT Head: Normocephalic, Atraumatic Eyes: Normal Pupils: PERRL - Respiratory Respiratory status: No respiratory distress Chest status: Nontender Breath sounds: Productive cough - clear frothy phlegm, Wheezing Chest palpation: Normal - Cardiovascular Rhythm: Regular Heart sounds: Normal auscultation Murmur: No - Abdominal Inspection: Normal Distension: No distension Bowel sounds: Normal Tenderness: Nontender Organomegaly: No organomegaly - Rectal Hemorrhoids: Other - deferred - Genitourinary Bimanuel exam: Other - deferred - Back Back: Normal, Nontender - Extremities General upper extremity: Normal inspection, Nontender, Normal color, Normal ROM, Normal temperature General lower extremity: Normal inspection, Nontender, Normal color, Normal ROM, Normal temperature, Normal weight bearing. No: Oscar's sign - Neurological Neuro grossly intact: Yes Cognition: Normal Orientation: AAOx4 Billy Coma Scale Eye Opening: Spontaneous [place] Coma Scale Verbal: Oriented Billy Coma Scale Motor: Obeys Commands Billy Coma Scale Total: 15 Speech: Normal Motor strength normal: LUE, RUE, LLE, RLE Sensory: Normal - Psychological Associated symptoms: Normal affect, Normal mood - Skin Skin Temperature: Warm Skin Moisture: Dry Skin Color: Normal Course - Vital Signs Vital signs: Temp Pulse Resp BP Pulse Ox 98.5 F 108 H 18 122/70 100 04/22/20 16:30 04/22/20 16:30 04/22/20 16:30 04/22/20 16:30 04/22/20 16:30 - Laboratory Result Diagrams: 04/22/20 17:03 04/22/20 17:03 Laboratory results interpreted by me: 04/22/20 04/22/20 17:03 17:03 RDW 15.3 H Potassium 3.1 L - Diagnostic Test Radiology reviewed: Reports reviewed - EKG Interpretation by Me EKG shows normal: Sinus rhythm Rate: Normal Rhythm: NSR - No STEMI no ST elevation no ST depression T wave depression no T wave elevation and heart rate was 94 bpm and this was read by myself and I agree with the EKG machine. Critical Care Note - Critical Care Note Comments: I tried to reach after patient arrived in room 19 but was unable to reach him by telephone via the telephone recorder. I again tried at 2037 and manual lathe operator advises she apologized but Dr. Varela is on-call for the group and we were able to talk with him and he advises patient to be seen tomorrow in clinic. I advised him also of this patient's low potassium 3.1 and we will give potassium tonight. Discharge - Discharge Clinical Impression: Hypokalemia, COPD exacerbation Condition: Good Disposition: HOME, SELF-CARE Additional Instructions: Follow-up with /Nichole tomorrow in clinic. Return to ER symptoms persist or worsen. Take your medicines as directed. Encourage fluids. Prescriptions: Dexamethasone [Decadron 4 Mg Tablet] 4 mg PO DAILY #5 tablet Potassium Chloride [Potassium Chloride 20 Meq Packet] 20 meq PO DAILY #5 packet Azithromycin [Zithromax 250 mg Tablet] 250 mg PO ASDIR PRN #6 tablet PRN Reason: Referrals: LUKASZ ORNELAS MD [Primary Care Provider] - Follow up as needed
[2020-04-22] MEDS ORDERED: IPRATROPIUM/ALBUTEROL 0.5-2.5 MG/3 ML AMPUL NEB ONE ×2 (19:40→19:41)
[2020-04-22] MEDS ORDERED: DEXAMETHASONE SOD PHOS INJ 10 MG/1 ML VIAL IV ONE (19:42)
[2020-04-22] MEDS ORDERED: POTASSIUM CHLORIDE 20 MEQ PACKET PO ONE (20:53)
[2020-04-22 21:24] VITALS: BP 90/68
== END 2020-04-22 21:24 | disposition home or self-care (01) ==
LOC: ER 16:19
DX: J44.1 Chronic obstructive pulmonary disease with (acute) exacerbation (principal); E87.6 Hypokalemia; R07.9 Chest pain, unspecified; R09.81 Nasal congestion; R06.02 Shortness of breath; R05 Cough; Z85.3 Personal history of malignant neoplasm of breast; Z85.118 Personal history of other malignant neoplasm of bronchus and lung; F17.210 Nicotine dependence, cigarettes, uncomplicated; E78.00 Pure hypercholesterolemia, unspecified; J44.9 Chronic obstructive pulmonary disease, unspecified; I11.0 Hypertensive heart disease with heart failure; I50.9 Heart failure, unspecified
CPT/HCPCS: 93005; 94640 ×2; 99285; 96374; 36415; 83735; 85025; 80053; 84484; 83880; 71046; 93010; J1100; J3490

== ENCOUNTER 2020-04-30 19:36 | Emergency (ER) | payer MEDICARE ==
[2020-04-30] MEDS ORDERED: MORPHINE SULFATE 10 MG/ML INJ IV ONE ×2 (20:44→23:00)
[2020-04-30] MEDS ORDERED: NORMAL SALINE 1000 ML 1,000 ML IV ONE (20:44)
[2020-04-30] MEDS ORDERED: ONDANSETRON HCL INJ/PF 4 MG/2 ML SDV IV ONE ×2 (20:45→23:30)
--- NOTE | 2020-04-30 20:48 | ER Document Report ---
ED Medical Screen (RME) - General Chief Complaint: Swallowed Foreign Body Stated Complaint: FOREIGN BODY IN THROAT Time Seen by Provider: 04/30/20 20:44 Primary Care Provider: LUKASZ ORNELAS MD [Primary Care Provider] - Follow up as needed Mode of Arrival: Stretcher Information source: Patient Notes: 55-year-old -[place] female here via ambulance for esophageal foreign body. States she took her blood pressure medicine at 7:00 this evening. Now has a lot of pain in her throat where she swallowed and is having to spit into a bag. Denies chest pain or shortness of breath General exam: Patient looks very uncomfortable, mild distress Cardio tachycardic Pulmonary Mildly tachypneic I have greeted and performed a rapid initial assessment of this patient. A comprehensive ED assessment and evaluation of the patient, analysis of test results and completion of the medical decision making process will be conducted by additional ED providers. TRAVEL OUTSIDE OF THE [place] IN LAST 30 DAYS: No - Related Data Allergies/Adverse Reactions: prednisone [Prednisone] Adverse Reaction (Intermediate, Verified 04/22/20 16:35) Past Medical History - Social History Frequency of alcohol use: None Drug Abuse: None Family history: Reviewed & Not Pertinent - Past Medical History Cardiac Medical History: Reports: Hx Congestive Heart Failure, Hx Hypercholesterolemia, Hx Hypertension Pulmonary Medical History: Reports: Hx Asthma, Hx Bronchitis, Hx COPD, Hx Pneumonia Neurological Medical History: Reports: Hx Cerebrovascular Accident - WEAKNESS ON LEFT SIDE Endocrine Medical History: Renal/ Medical History: Reports: Hx Ovarian Cysts Malignancy Medical History: Reports: Hx Breast Cancer, Hx Lung Cancer GI Medical History: Reports: Hx Gastroesophageal Reflux Disease, Hx Hiatal Hernia, Hx Irritable Bowel Musculoskeltal Medical History: Reports Hx Arthritis, Reports Hx Musculoskeletal Deformity Skin Medical History: Reports Hx Psoriasis Traumatic Medical History: Reports: Hx Pneumothorax Infectious Medical History: Past Surgical History: Reports: Hx Abdominal Surgery - benign mass removal, Hx Mastectomy - bilat 2010, Hx Orthopedic Surgery - left shoulder replacement 09/10, Other - Chest tubes - Immunizations Immunizations up to date: Yes Hx Diphtheria, Pertussis, Tetanus Vaccination: No Physical Exam - Vital signs Vitals: Temp Pulse Resp BP Pulse Ox 99.7 F 117 H 22 H 101/58 L 93 04/30/20 19:44 04/30/20 19:44 04/30/20 19:44 04/30/20 19:44 04/30/20 19:44 Course - Vital Signs Vital signs: Temp Pulse Resp BP Pulse Ox 99.7 F 117 H 22 H 101/58 L 93 04/30/20 19:44 04/30/20 19:44 04/30/20 19:44 04/30/20 19:44 04/30/20 19:44 Doctor's Discharge - Discharge Referrals: LUKASZ ORNELAS MD [Primary Care Provider] - Follow up as needed
[2020-04-30] MEDS ORDERED: GLUCAGON,HUMAN RECOMB 1 MG INJ IV ONE (21:53)
--- NOTE | 2020-04-30 21:55 | RADIOLOGY REPORT (SQ) ---
Neck soft tissue x-ray two views 04/30/2020 9:08 PM CLINICAL INDICATION: Swallowed pill and feels like it is still stuck, foreign body COMPARISON: None FINDINGS: There is no radiopaque foreign body. The epiglottis and airway is unremarkable. There is no prevertebral soft tissue swelling. Degenerative changes are noted in the lower cervical spine. The patient is edentulous. No definite ingested pill is visualized. IMPRESSION: No acute abnormality.
[2020-04-30] MEDS ORDERED: BENZOCAINE 20% AEROSOL SPRAY 60 GM TP ONE (22:16)
--- NOTE | 2020-04-30 22:22 | ER Document Report ---
ED General - General Chief Complaint: Swallowed Foreign Body Stated Complaint: FOREIGN BODY IN THROAT Time Seen by Provider: 04/30/20 20:44 Primary Care Provider: LUKASZ ORNELAS MD [Primary Care Provider] - Follow up as needed Mode of Arrival: Stretcher TRAVEL OUTSIDE OF THE [place] IN LAST 30 DAYS: No - HPI Notes: Patient is a 55-year-old female who presents to the emergency department for evaluation of feeling like a pill is stuck in her throat. Between 7 and 8 PM she took her blood pressure medicine. She states sugar verapamil, which is a very large pill. She states that since then she has not been able to swallow anything. She states that every time she tries to swallow it feels tight, then she regurgitates up her saliva. She states that she felt like she was choking on her medicine last night, but was able to eat fine today. She states that on occasion her throat felt "swollen" but she denies any shortness of breath. - Related Data Allergies/Adverse Reactions: prednisone [Prednisone] Adverse Reaction (Intermediate, Verified 04/22/20 16:35) Home Medications: List reviewed Past Medical History - General Information source: Patient - Social History Smoking Status: Current Every Day Smoker Frequency of alcohol use: None Drug Abuse: None Family History: CAD, Hypertension Patient has homicidal ideation: No - Past Medical History Cardiac Medical History: Reports: Hx Congestive Heart Failure, Hx Hypercholesterolemia, Hx Hypertension Pulmonary Medical History: Reports: Hx Asthma, Hx Bronchitis, Hx COPD, Hx Pneumonia Neurological Medical History: Reports: Hx Cerebrovascular Accident - Left-sided weakness, Other - Intracranial aneurysm Endocrine Medical History: Renal/ Medical History: Reports: Hx Ovarian Cysts Malignancy Medical History: Reports: Hx Breast Cancer, Hx Lung Cancer GI Medical History: Reports: Hx Gastroesophageal Reflux Disease, Hx Hiatal Hernia, Hx Irritable Bowel Musculoskeletal Medical History: Reports Hx Arthritis, Reports Hx Musculoskeletal Deformity Skin Medical History: Reports Hx Psoriasis Traumatic Medical History: Reports: Hx Pneumothorax Infectious Medical History: Past Surgical History: Reports: Hx Abdominal Surgery - benign mass removal, Hx Mastectomy - bilat 2010, Hx Orthopedic Surgery - left shoulder replacement 09/10, Other - Chest tubes - Immunizations Immunizations up to date: Yes Hx Diphtheria, Pertussis, Tetanus Vaccination: No Hx Pneumococcal Vaccination: 06/26/11 Review of Systems - Review of Systems Constitutional: No symptoms reported EENT: See HPI Cardiovascular: No symptoms reported Respiratory: No symptoms reported Gastrointestinal: See HPI Genitourinary: No symptoms reported Musculoskeletal: No symptoms reported Skin: No symptoms reported Neurological/Psychological: No symptoms reported -: Yes All other systems reviewed and negative Physical Exam - Vital signs Vitals: Temp Pulse Resp BP Pulse Ox 99.7 F 117 H 22 H 101/58 L 93 04/30/20 19:44 04/30/20 19:44 04/30/20 19:44 04/30/20 19:44 04/30/20 19:44 - Notes Notes: This is a 55-year-old female who appears older than her stated age in a moderate amount of distress. She is intermittently hyperventilating, trying to induce vomiting. Occasionally she spits clear saliva into an emesis bag. Vital signs reviewed, please refer to chart. Head is normocephalic, atraumatic. Pupils equal round, reactive to light. There is an area of irritation and a small amount of blood on the soft palate anteriorly, consistent with the patient's intermittent retching and gagging. No foreign body is noted. Neck is supple without meningismus. Heart is regular rate and rhythm. Lungs are clear to auscultation bilaterally. Abdomen is soft, nontender, normoactive bowel sounds throughout. Extremities without cyanosis, clubbing. Posterior calves are nontender. Peripheral pulses are equal. Skin is warm and dry. Patient is awake, alert, neurological exam is nonfocal. Course - Re-evaluation Re-evalutation: 04/30/20 22:24 Patient presents to the emergency department for evaluation. She complains of a possible esophageal foreign body, but it is an impacted pill. I suspect that she may in fact dissolve this medicine before any sort of intervention is needed. At any rate, I did contact Dr. Amaya about this patient. He agrees that medical management is appropriate at this time. I will order IV glucagon. She is currently stable. 05/01/20 00:45 Patient received glucagon, morphine, Zofran. She felt significantly improved after the Hurricaine spray as well. She was able to tolerate a full can of martinez edna. I will discharge her home. She states that her throat still feels raw and tender, almost edematous. I would give her a dose of Decadron and have her follow-up closely with primary care. She is to return to the ED with worsening. - Vital Signs Vital signs: Temp Pulse Resp BP Pulse Ox 98.3 F 102 H 14 111/73 97 05/01/20 00:13 05/01/20 00:13 05/01/20 00:13 05/01/20 00:13 05/01/20 00:13 Discharge - Discharge Clinical Impression: Pill dysphagia Condition: Stable Disposition: HOME, SELF-CARE Instructions: Esophageal Foreign Body ([facility]) Additional Instructions: You were able to pass the pill from your throat into your stomach today. You have been given Decadron to help with the swelling sensation in your throat. Follow-up with your primary care provider this week. Return to the emergency department with worsening or new concerning symptoms of any sort. Referrals: LUKASZ ORNELAS MD [Primary Care Provider] - Follow up as needed
[2020-04-30] MEDS ORDERED: BENZOCAINE 20% AEROSOL SPRAY 60 GM ONE (23:00)
[2020-05-01] MEDS ORDERED: DEXAMETHASONE SOD PHOS INJ 10 MG/1 ML VIAL IV ONE (00:44)
[2020-05-01] MEDS ORDERED: DEXAMETHASONE SOD PHOSPHATE INJ 4 MG/1 ML VIAL ONE (01:53)
[2020-05-01 02:09] VITALS: BP 96/59
== END 2020-05-01 02:19 | disposition home or self-care (01) ==
LOC: ER 19:36
DX: R13.19 Other dysphagia (principal); R06.4 Hyperventilation; I50.9 Heart failure, unspecified; I11.0 Hypertensive heart disease with heart failure; E78.00 Pure hypercholesterolemia, unspecified
CPT/HCPCS: 99284; 96361; 96374; 96375; 70360; J3490; J1610; J2270; J2405; J7030; J1100

== ENCOUNTER 2020-06-11 08:16 | Day surgery (SDC) | payer MEDICARE ==
[~2020-06-11 08:16] MED LIST: PROPOFOL INJ 200 MG/20 ML VIAL IV ONE
--- NOTE | 2020-06-11 11:11 | Operative Report ---
Operative Report DATE OF SURGERY: 06/11/20 Operative Report: The risk, benefits and alternatives of the procedure including the risk of bleeding, perforation requiring surgery have been explained to the patient in detail and informed consent has been obtained. Patient is placed in left, lateral decubital position. Timeout was called. Propofol medication is administered. Rectal examination is done which did not reveal any masses, tears or fissures. An Olympus videoscope was introduced into the patient's rectum. Scope was then carefully advanced all the way to the cecum. Cecum was identified by the usual anatomical landmarks of the ileocecal valve as well as the appendiceal office. Photodocumentation is obtained. Scope was then sequentially pulled back via the various segments of the colon including the ascending colon, hepatic flexure, transverse colon, splenic flexure, descending colon and finally into the rectosigmoid portions of the colon. Retroflexion maneuver is performed. The risks benefits and alternatives of the procedure explained to the patient in detail and informed consent is obtained.A GIF Olympus video scope was inserted into the patient's mouth and hypopharynx, the esophagus is identified intubated and insufflated ,the scope was then advanced through the esophagus stomach and duodenum, retroflexion maneuver is done ,the esophagus stomach and first and second portions of the duodenum examined PREOPERATIVE DIAGNOSIS: Change in bowel habits. Epigastric pain POSTOPERATIVE DIAGNOSIS: Ascending colon polyp removed via snare polypectomy and retrieved. Internal hemorrhoids. Gastritis status post biopsy probably Helicobacter pylori OPERATION: Colonoscopy with snare polypectomy. EGD with biopsy SURGEON: JEFF DURAND ANESTHESIA: LMAC TISSUE REMOVED OR ALTERED: As noted above. COMPLICATIONS: None. ESTIMATED BLOOD LOSS: None. INTRAOPERATIVE FINDINGS: As noted above. PROCEDURE: Patient tolerated procedure well. No immediate postprocedure complications are noted. Patient is discharged in good condition. Discharge date 06/11/2020. Discharge diet: Regular. Discharge activity: Regular. 2 to 3-week follow-up to discuss findings. Patient is instructed call the office or proceed to the emergency room should there be any further problems or questions. 3 to 5-year surveillance colonoscopy.
[2020-06-11 12:23] VITALS: BP 103/70
== END 2020-06-11 12:34 | disposition home or self-care (01) ==
LOC: END 08:16
PROVIDERS: ATTEND Internal Medicine Gastroenterology
DX: K51.40 Inflammatory polyps of colon without complications (principal); K29.70 Gastritis, unspecified, without bleeding; K64.8 Other hemorrhoids; K44.9 Diaphragmatic hernia without obstruction or gangrene; J44.9 Chronic obstructive pulmonary disease, unspecified; I69.154 Hemiplegia and hemiparesis following nontraumatic intracerebral hemorrhage affecting left non-dominant side; F17.200 Nicotine dependence, unspecified, uncomplicated; M13.80 Other specified arthritis, unspecified site; Z85.3 Personal history of malignant neoplasm of breast; Z90.13 Acquired absence of bilateral breasts and nipples; Z68.21 Body mass index [BMI] 21.0-21.9, adult; Z79.51 Long term (current) use of inhaled steroids; Z79.899 Other long term (current) drug therapy; Z20.828 Contact with and (suspected) exposure to other viral communicable diseases
CPT/HCPCS: 43239; 45385; 88305 ×2; J2704; 813